=== PATIENT | female | born 1935 | race Caucasian/White ===

== ENCOUNTER 2017-01-10 15:06 | Inpatient (IN) | payer MEDICARE, OTHER ==
[~2017-01-10] VITALS: Ht 147.3 cm; Wt 70.0 kg
[~2017-01-10 15:06] MED LIST: ALBU8.5H3 INH; AMLO1TAB PO; APIX5TAB PO; ASPI-664 PO; BISO1TAB79 PO; DICL100G37 TOP; DIGO125T PO; DONE10TA7 PO; ETOMIDATE 20 MG INJ ONE; FER325 PO; FURO40TA4 PO; IBUP-1542 PO; LEVEM SC; METF500T4 PO; METO-448 PO; MONT10TA24 PO; Montelukast Sodium PO; NIT4 SL; POTA10TA37 PO; ROCURONIUM 50 MG INJ ONE; ROSU40TA35 PO
[2017-01-10] MEDS ORDERED: ALBUTEROL 0.5% (NEB) 2.5 MG/0.5 ML AMP INH STA (15:12)
[2017-01-10] MEDS ORDERED: NITROGLYCERIN (SL) 0.4 MG TAB SL PRN (15:30)
--- NOTE | 2017-01-10 15:34 | ERA ---
ER Documentation Chief Complaint Date/Time DATE: 01/10/17 TIME: 15:32 Chief Complaint HPI 79-year-old female with past medical history of CAD, chronic lymphocytic leukemia, anemia, hypertension, hypothyroidism, obesity, osteoporosis, pulmonary hypertension, diabetes, paroxysmal AFib, asthma, left lower extremity DVTBrought in by ambulance from home in severe respiratory distress. The patient was placed on BiPAP after she was noted to have an oxygen saturation in the 70s. The patient was recently admitted 3 weeks ago to an outside hospital for similar symptoms. Otherwise history is limited as the patient is in severe respiratory distress and not answering questions. ROS Unable to obtain secondary to severe respiratory distress Medications Home Meds Reported Medications Albuterol Sulfate* (Albuterol Sulfate* Neb) 0.083%-3 Ml Neb, 1 VIAL NEB BID Y for WHEEZING AND SOB, #30 VIAL 01/10/17 Ergocalciferol (Vitamin D2) (VITAMIN D2) 50,000 Unit Capsule, 02013 UNIT PO Q7D , CAP 01/10/17 Sennosides* (Senna Lax*) 8.6 Mg Tablet, 1 TAB PO Q12H Y for CONSTIPATION, TAB 01/10/17 Rosuvastatin Calcium* (Crestor*) 40 Mg Tablet, 40 MG PO DAILY, #30 TAB 01/10/17 Rivaroxaban* (Xarelto*) 20 Mg Tablet, 20 MG PO WITH DINNER, TAB 01/10/17 Prednisone* (Prednisone*) 5 Mg Tab, 5 MG PO DAILY, TAB 01/10/17 Potassium Chloride (Klor-Con) 10 Meq Tablet.sa, 10 MEQ PO DAILY, TAB.SA 01/10/17 Montelukast Sodium* (Montelukast Sodium*) 5 Mg Tab.chew, 5 MG PO QHS, #30 TAB 01/10/17 Midodrine* (Midodrine*) 5 Mg Tablet, 5 MG PO BID, TAB 01/10/17 Metoprolol Tartrate* (Lopressor*) 50 Mg Tab, 50 MG PO BID, #60 TAB 01/10/17 Lidocaine (Lidocaine) 1 Each Adh..patch, 1 EACH TP DAILY 01/10/17 Insulin Glargine* (Lantus*) 100 Unit/Ml Soln, 40 UNIT SC QAM, #1 VIAL 01/10/17 Insulin Aspart* (Novolog Insulin Pen*) 100 Unit/Ml Soln, 12 UNIT SC WITH MEALS, EA 01/10/17 Esomeprazole Mag Trihydrate (Nexium) 40 Mg Capsule.dr, 40 MG PO DAILY, #30 CAP 01/10/17 Docusate Sodium* (Docusate Sodium*) 100 Mg Capsule, 100 MG PO BID, #60 CAP 01/10/17 Diltiazem Hcl* (Diltiazem XT) 180 Mg Capsule.er, 180 MG PO DAILY, #30 CAP 01/10/17 Acetaminophen* (Acetaminophen*) 650 Mg Tablet, 650 MG PO Q4H Y for PAIN AND OR ELEVATED TEMP, #30 TAB 01/10/17 Furosemide* (Furosemide*) 40 Mg Tablet, 40 MG PO BID, TAB 01/10/17 Amiodarone Hcl* (Amiodarone Hcl*) 100 Mg Tablet, 100 MG PO BID, #30 TAB 01/10/17 Discontinued Reported Medications Montelukast Sodium* (Montelukast Sodium*) 10 Mg Tablet, 10 MG PO HS, TAB 10/25/14 Potassium Chloride* (K-Dur*) 10 Meq Tab.prt.sr, 10 MEQ PO DAILY, TAB 10/25/14 Furosemide* (Furosemide*) 40 Mg Tablet, 40 MG PO DAILY, TAB 7 Albuterol Sulfate* (Proair HFA*) 8.5 Gm Hfa.aer.ad, 2 PUFF INH Q4H Y for WHEEZING AND SOB, INH 10/25/14 Amlodipine-Olmesartan (Cece) 5-40 Mg Tablet, 1 TAB PO DAILY, TAB 10/25/14 Rosuvastatin Calcium* (Crestor*) 40 Mg Tablet, 40 MG PO HS, TAB 7 Metformin Hcl* (Metformin Hcl*) 500 Mg Tablet, 500 MG PO WITH MEALS, TAB 7 Diclofenac Sodium* (Voltaren* Gel) 1% -100 Gm Gel, 2 GM TOP QID, TUB 10/25/14 Bisoprolol-Hydrochlorothiazide (Bisoprolol-Hydrochlorothiazide) 5-6.25 Mg Tablet , 1 TAB PO DAILY, TAB 7 Ibuprofen* (Ibuprofen*) 600 Mg Tablet, 600 MG PO Q8, TAB 10/25/14 Donepezil* (Donepezil*) 10 Mg Tablet, 10 MG PO DAILY, TAB 7//15 Insulin Detemir* (Levemir*) 100 U/Ml Vial, 30 UNIT SC DAILY, VIAL 10/25/14 Discontinued Scripts Nitroglycerin* (Nitrostat*) 25 Tab Subl, 1 TAB SL Q5M Y for CHEST PAIN, #30 Prov:YOVANI CUETO 10/28/14 Metoprolol Tartrate* (Lopressor*) 25 Mg Tab, 25 MG PO BID for 30 Days, TAB Prov:YOVANI CUETO 10/28/14 Apixaban* (Eliquis*) 5 Mg Tablet, 10 MG PO BID for 60 Days, TAB 1. Take eliquis 10 mg by mouth twice a day for 7 days 2. Then take eliquis 5mg by mouth twice a day Prov:YOVANI CUETO 10/28/14 [Montelukast Sodium] 10 MG TAB No Conflict Check, 10 MG PO HS for 30 Days, TAB Prov:YOVANI CUETO 10/28/14 Ferrous Sulfate* (Ferrous Sulfate*) 325 Mg Tabec, 325 MG PO TID for 30 Days Prov:YOVANI CUETO 10/28/14 Digoxin* (Digitek*) 0.125 Mg Tab, 0.125 MG PO DAILY@13 for 30 Days Prov:YOVANI CUETO 10/28/14 Aspirin* (Aspirin* EC) 81 Mg Tabec, 81 MG PO DAILY for 30 Days Prov:YOVANI CUETO 10/28/14 Allergies Allergies: Coded Allergies: ceftriaxone (Unverified Allergy, Unknown, 01/10/17) PMhx/Soc History of Surgery: Yes (port-a-cath placement) Anesthesia Reaction: No Hx Neurological Disorder: No Hx Respiratory Disorders: No Hx Cardiac Disorders: Yes (HTN, paroxysmal AF, anemia, CHF) Hx Psychiatric Problems: No Hx Miscellaneous Medical Probl: No Hx Alcohol Use: No Hx Substance Use: No Hx Tobacco Use: No FmHx Family History: other (unable to obtain) Physical Exam Vitals Vital Signs Date Time Temp Pulse Resp B/P Pulse Ox O2 Delivery O2 Flow Rate FiO2 01/10/17 22:26 98.5 109 106/73 100 Mechanical Ventilator 01/10/17 21:04 123 20 100 100 01/10/17 20:25 98.7 140 102/89 100 Mechanical Ventilator 01/10/17 19:35 143 20 100 100 01/10/17 18:04 139 20 98 100 01/10/17 18:02 137 11 119/59 Mechanical Ventilator 01/10/17 17:40 140 88/65 98 Mechanical Ventilator 01/10/17 17:33 160 20 115/56 100 Mechanical Ventilator 01/10/17 17:15 163 17 103/81 100 Mechanical Ventilator 01/10/17 16:50 150 20 105/76 100 Mechanical Ventilator 01/10/17 16:50 154 20 100 100 01/10/17 15:45 98.2 137 18 141/93 96 01/10/17 15:45 Bag Valve Mask 01/10/17 15:38 98.4 138 29 141/93 93 BIPAP 01/10/17 15:20 130 89 100 Physical Exam Const: In severe respiratory distress, sitting upright, on BiPAP Head: Atraumatic Eyes: Normal Conjunctiva ENT: Normal External Ears, Nose and Mouth. Neck: Full range of motion..~ No meningismus.Positive JVD Resp: Significantly tachypneic, retractions noted,Poor air movement bilaterally with diffuse rails, no wheezing Cardio: Tachycardic with irregularrhythm, no murmurs Abd: Soft, non tender, non distended. Right upper quadrant with catheter, dressing clean dry and intact.Normal bowel sounds Skin: No petechiae or rashes Back: No midline or flank tenderness Ext: No cyanosis, Bilateral lower extremity pitting edema, lower extremities symmetric Neur: Awake and alert, Able to tell me her name but not answering other questions to the respiratory distress, PERRLA, moving all extremities, normal tone Result Diagram: 01/10/17 1525 01/10/17 1525 Results 24 hrs Laboratory Tests Test 01/10/17 15:12 01/10/17 15:25 01/10/17 18:10 01/10/17 20:05 Blood Gas Specimen Source Blood arterial Blood arterial Arterial Blood Date Drawn 01/10/2017 3:37:55 PM 01/10/2017 6:17:36 PM Arterial Blood pH (Temp corrected) 7.186 7.368 Arterial Blood pCO2 (Temp correct) 87.5mmhg 48.3mmhg Arterial Blood pO2 (Temp corrected) 72.1mmHG 79.3mmHG Arterial Blood HCO3 32.4mmol/L 27.2mmol/L Arterial Blood Base Excess 1.9mmol/L 1.4mmol/L Arterial Blood Oxygen Saturation 89.4mmHG 94.8mmHG Blayne Test ACCEPTAB ACCEPTAB Arterial Blood Gas Puncture Site Right Radial Right Radial Arterial Blood Carboxyhemoglobin 0.3% 0.3% Arterial Blood Methemoglobin 0.3% 0.3% Blood Gas A-a O2 Differential 553.4mmHg 585.4mmHg Oxyhemoglobin Percent 88.9% 94.2% Total Hemoglobin 12.0g/dl 11.3g/dl Blood Gas Temperature 37.0C 37.0C Blood Gas Respiration Rate 18.0 20.0 Blood Gas Actual Respiration Rate 51 20 Blood Gas Modality MASK - BIPAP VENT - AC FiO2 100.0% 100.0% Blood Gas Pressure Support 12 Blood Gas IPAP/EPAP Ratio 20/8 Blood Gas Critical Value Read Back DR. LEANDRO REEVES Blood Gas Notified Whom Olya Dobson Blood Gas Notified Time 01/10/2017 3:44:39 PM 01/10/2017 6:25:11 PM White Blood Count 30.810^3/ul Red Blood Count 3.5510^6/ul Hemoglobin 10.7g/dl Hematocrit 36.0% Mean Corpuscular Volume 101.4fl Mean Corpuscular Hemoglobin 30.1pg Mean Corpuscular Hemoglobin Concent 29.7g/dl Red Cell Distribution Width 15.3% Platelet Count 49204^3/UL Mean Platelet Volume 10.0fl Neutrophils % % Segmented Neutrophils % (Manual) 15% Lymphocytes % % Lymphocytes % (Manual) 76% Monocytes % % Monocytes % (Manual) 9% Eosinophils % % Basophils % % Nucleated Red Blood Cells % 0.0/100WBC Neutrophils # 10^3/ul Absolute Lymphocytes (Manual) 23.410^3/ul Lymphocytes # 10^3/ul Monocytes # 10^3/ul Absolute Monocytes (Manual) 2.710^3/ul Eosinophils # 10^3/ul Basophils # 10^3/ul Nucleated Red Blood Cells # 10^3/ul Platelet Estimate NORMAL Platelet Morphology Comment @See below Polychromasia 1+ Anisocytosis 1+ Ovalocytes 1+ Prothrombin Time 19.9Sec Prothrombin Time Ratio 1.6 INR International Normalized Ratio 1.68 Activated Partial Thromboplast Time 33.6Sec Sodium Level 141mmol/L Potassium Level 5.3mmol/L Chloride Level 97mmol/L Carbon Dioxide Level 31mmol/L Anion Gap 18 Blood Urea Nitrogen 16mg/dl Creatinine 1.28mg/dl Glucose Level 341mg/dl Lactic Acid Level 4.9mmol/L 2.2mmol/L Calcium Level 8.9mg/dl Total Bilirubin 0.4mg/dl Direct Bilirubin 0.00mg/dl Indirect Bilirubin 0.4mg/dl Aspartate Amino Transf (AST/SGOT) 34IU/L Alanine Aminotransferase (ALT/SGPT) 29IU/L Alkaline Phosphatase 118IU/L Troponin I 0.014ng/ml B-Type Natriuretic Peptide 7020PG/ML Total Protein 7.0g/dl Albumin 4.3g/dl Globulin 2.70g/dl Albumin/Globulin Ratio 1.59 Blood Gas Tidal Volume 400.0mL Blood Gas Low PEEP Setting 8.0cmH2O Test 01/10/17 22:10 Lactic Acid Level 2.0mmol/L Current Medications Medications (Trade) Dose Ordered Sig/Carlos Route PRN Reason Start Time Stop Time Status Last Admin Dose Admin Albuterol (Proventil 0.5% (Neb)) 10 mg ONCE STAT INH 01/10/17 15:12 01/10/17 15:14 DC 01/10/17 15:23 Nitroglycerin 1 tab 1 tab Q5M UP TO 3 DOSES PRN SL CHEST PAIN 01/10/17 15:30 01/10/17 15:30 Vancomycin HCl 250 ml @ 125 mls/hr ONCE STAT IVPB 01/10/17 16:06 01/10/17 18:05 DC 01/10/17 16:52 Cefepime HCl 50 ml @ 100 mls/hr ONCE STAT IVPB 01/10/17 16:06 01/10/17 16:35 DC 01/10/17 16:50 Propofol (Diprivan) 100 ml @ 0 mls/hr TITRATE ONCE IV 01/10/17 16:30 01/10/17 16:31 DC 01/10/17 17:18 Furosemide (Lasix) 80 mg ONCE ONCE IV 01/10/17 16:30 01/10/17 16:31 DC 01/10/17 16:50 Diltiazem HCl (Cardizem Iv) 10 mg ONCE ONCE IV 01/10/17 16:30 01/10/17 16:31 DC 01/10/17 16:50 Lidocaine (Xylocaine 1% (Mpf)) 5 ml ONCE ONCE SC 01/10/17 16:30 01/10/17 16:31 DC Diltiazem HCl (Cardizem Iv) 10 mg ONCE ONCE IV 01/10/17 17:30 01/10/17 17:31 DC 01/10/17 17:13 Diltiazem HCl 20 mg 20 mg ONCE ONCE IV 01/10/17 17:30 01/10/17 17:31 DC 01/10/17 17:33 Sodium Chloride (NS) 500 ml @ 500 mls/hr Q1H STAT IV 01/10/17 18:03 01/10/17 19:02 DC Metoprolol Tartrate 5 mg 5 mg ONCE ONCE IV 01/10/17 18:30 01/10/17 18:31 DC Amiodarone HCl 100 ml @ 600 mls/hr ONCE ONCE IV 01/10/17 19:00 01/10/17 19:09 DC Amiodarone HCl/ Dextrose (Cordarone Iv/ D5W) 500 ml @ 0 mls/hr Q0M IV 01/10/17 19:00 01/11/17 18:59 Midazolam HCl 2 mg 2 mg ONCE ONCE IV 01/10/17 19:00 01/10/17 19:01 DC 01/10/17 20:07 Midazolam HCl 0 ml @ ud STK-MED ONCE .ROUTE 01/10/17 18:43 01/10/17 18:44 DC Phenylephrine HCl (Baudilio-Syneph) 250 ml @ ud STK-MED ONCE .ROUTE 01/10/17 19:31 01/10/17 19:32 DC Digoxin (Digoxin) 500 mcg STK-MED ONCE IV 01/10/17 19:31 01/10/17 19:32 DC Digoxin 250 mcg 250 mcg ONCE ONCE IV 01/10/17 20:00 01/10/17 20:01 DC 01/10/17 19:49 Phenylephrine HCl 250 ml @ 75 mls/hr TITRATE IV 01/10/17 20:00 01/10/17 22:00 DC 01/10/17 20:17 Phenylephrine HCl/ Dextrose (Baudilio-Syneph/D5W) 250 ml @ 0 mls/hr TITRATE IV 01/10/17 20:30 Digoxin (Digoxin) 250 mcg Q4H IV 01/11/17 00:00 01/11/17 08:01 Enoxaparin Sodium (Lovenox) 70 mg ONCE SC 01/10/17 23:00 01/10/17 23:03 Procedures/MDM EKG: Rate/Rhythm: Atrial fibrillation with rapid ventricular response at 126 bpm QRS, ST, T-waves: Rightward axis, incomplete left bundle branch block Impression: Atrial fibrillation with RVR, no ST elevation AR EKG: Rate/Rhythm: A. fib with RVR at 149 bpm QRS, ST, T-waves: Incomplete left bundle branch block Impression: Atrial fibrillation with RVR Chest x-ray #1: IMPRESSION: Mild cardiomegaly. Moderate pulmonary vascular congestion. Extensive bilateral infiltrates. Bilateral pleural effusions. Right-sided Pleurx catheter in place. Slightly more focal right lower lobe consolidation versus mass. Calcified aorta consistent with atherosclerotic disease. Follow-up is recommended. .Mahamed Rodriguez MD, MD Date Time Electronically viewed and signed by .Mahamed Rodriguez MD, MD on 01/10/2017 15: 41 Endotracheal Intubation by me: Pre assessment performed. See preceding note for details. Pre-oxygenation performed with 100% oxygen RSI: Performed w/o complication or hypoxic events. Medications as ordered. Blade: Mac 4 ET Tube: 7.5 cm Depth: 21 cm at the lip Intubation confirmed by colorimetric CO2, equal breath sounds, quiet over the stomach. Chest X-ray 1V Interpreted by me: 1.2 cm above the jaya ET tube. Normal soft tissue, No pneumothorax. Chest X-ray 1V Interpreted by me after repositioning tube: 3 cm above the jaya is the ET tube. No pneumothorax. Central Line Placement by me: Patient consented, sterilely draped, full prep, gown, glove, mask, time out performed. Anesthesia: 1% lidocaine locally Location: Left IJ Device: Multiple lumen Technique: Seldinger technique. Secured with suture. Results: Venous return from all ports with easy saline flush. No complications. Guide wire retrieved and disposed of. ED Ultrasound: Central line placed by me using concurrent ultrasound guidance. Real time image archived in the medical record confirms vascular anatomy. Chest X-ray 1V Interpreted by me: Central line in SVC, Normal soft tissue, No evidence of pneumothorax. MDM Patient's presentation is consistent with acute heart failure with some hypercarbia. Patient was trialed on BiPAP for half an hour. Her oxygenation was improving, however she remained tachypneic in the 50s and appeared to be tiring out. I discussed my findings with the family and they agreed to intubation. The patient was intubated for acute respiratory failure with improvement of her respiratory status. She immediately had blood-tinged frothy sputum that was suctioned. Her heart rate was noted to be tachycardic and became even more tachycardic after albuterol therapy was started with the BiPAP. Patient is in chronic A. fib but is currently in RVR. Multiple doses of diltiazem was given with no significant improvement in the tachycardia, but her blood pressure did progressively drop. Due to poor access, the patient had a central line placed. I suspect her lactic acidosis is more likely secondary to hypoperfusion from her acute on chronic heart failure and uncontrolled A. fib and less likely secondary to sepsis. However her x-ray does show evidence of possible pneumonia. Broad-spectrum antibiotics were started. I spoke with the harness tier, Dr. Bardales, who recommended digoxin and Baudilio-Synephrine. I had ordered amiodarone, however he stated the patient did not need this. I was unable to give any further beta-blockers for rate control given her hypotension. Digoxin was given with progressive improvement in her vitals. Lasix 80 mg IV was also given for diuresis. I did consider acute coronary syndrome and pulmonary embolism, which remain on the differential. However I will defer any further workup for these to the inpatient team as the patient still requires stabilization. Patient will require admission for further management of her multiple acute on chronic issues. the patient is at risk of rapid decompensation. The patient will be admitted for Respiratory interventions,antibiotic therapy, and infectious source control. Severe Sepsis Assessment: Infectious Source: Unknown End organ damage indicated by: Lactate > 2.0 mmol/L Hypotension( SBP < 90 or >40 mmHG drop or MAP < 65) Acute Resp Failure (sat < 92% w/o oxygen) Severe Sepsis Managment: Blood Cultures X 2 before broad spectrum antibiotics initiated within 3 hours of recognition. 30 ml/kg NS bolus Not completed as the patient is significantly fluid overloaded on exam and acute CHF, IVC full and non-collapsible Initial Lactate: 4.9 Repeat Lactate 2.2 Critical Care: Time: 60 minutes Treatments/Evaluations: Emergent fluid management, while maintaining close respiratory support. Immediate broad spectrum antibiotic therapy. Simultaneous assessment for possible sources in order to direct therapy. Consideration for invasive and chemical support to prevent respiratory or cardiac collapse. Septic Shock Assessment Hypotension (SBP < 90 or 40 mmHg drop, MAP < 65): Yes Lactic acid > 4.0 No Perfusion Reassessment for Septic Shock: Temp 98.4F, Pulse 150, RR 20, BP 105/76 Heart Exam: Tachycardic, irregular Lung Exam: Diffuse crackles Capillary Refill: Delayed Peripheral Pulses: Radially present Skin: Warm, dry Hypotensive Treatment (not required for isolated lactic acid elevation): Comfort Care: No Central LIne: yes Vasopressor started: neosynephrine per Dr. Bardales I considered further perfusion assessment with bedside ultrasound volume assessment And proceeded with vasopressors Accepting Care Team: Current data and ongoing care discussed. Time: Time of admission Primary Provider: Nawaf Consulting: Catia Outstanding Data: cultures Departure Diagnosis: Primary Impression: Acute respiratory failure with hypoxia and hypercapnia Additional Impressions: Septic shock Cardiogenic shock Atrial fibrillation with RVR Leukocytosis Qualified Code: D72.829 - Leukocytosis, unspecified type Healthcare-associated pneumonia Acute CHF Qualified Code: I50.41 - Acute combined systolic and diastolic congestive heart failure Condition: Critical EKAIXA SNIDER MD Jan 10, 2017 15:34
[2017-01-10 15:41] LABS: ABNORMAL IP MESSAGE 1; HEMOGLOBIN 10.7 g/dl (12.0-16.0); MEAN CORPUSCULAR HEMOGLOBIN 30.1 pg (29.0-33.0); MEAN CORPUSCULAR HGB CONC 29.7 g/dl (32.0-37.0); MEAN CORPUSCULAR VOLUME 101.4 fl (82.0-101.0); PLATELET COUNT 293 10^3/UL (140-415); RED BLOOD COUNT 3.55 10^6/ul (4.20-5.40); RED CELL DISTRIBUTION WIDTH 15.3 % (11.5-14.5); WHITE BLOOD COUNT 30.8 10^3/ul (4.8-10.8)
--- NOTE | 2017-01-10 15:41 | RADRPT ---
PROCEDURE: XR Chest. CLINICAL INDICATION: Chest pain TECHNIQUE: Single frontal view of the chest was obtained COMPARISON: 10/25/2014 FINDINGS: The heart is enlarged. The thoracic aorta is calcified. There is moderate pulmonary vascular congestion. There are bilateral upper lobe and lower lobe ileus . There are bilateral pleural effusions. There is a possible right lower lobe/consolidation. There i s a right-sided Pleurx catheter in place. There is no pleural effusion or pneumothorax. RPTAT: AA IMPRESSION: Mild cardiomegaly. Moderate pulmonary vascular congestion. Extensive bilateral infiltrates. Bilateral pleural effusions. Right-sided Pleurx catheter in place. Slightly more focal right lower lobe consolidation versus mass. Calcified aorta consistent with atherosclerotic disease. Follow-up is recommended. .Mahamed Rodriguez MD, Date Time Electronically viewed and signed by .Mahamed Rodriguez MD, on 01/10/2017 15:41 .S/
[2017-01-10 15:44] LABS: POSITIVE DIFF @See below
[2017-01-10 15:44] LABS: AADO2 Arterial 553.4 mmHg (7.0-24.0); Allen Test ACCEPTAB; Arterial Base Excess 1.9 mmol/L (-3.0-3); Arterial COHb 0.3 % (0.0-3.0); Arterial Fraction of Oxyhgb 88.9 % (93.0-99.0); Arterial HCO3 32.4 mmol/L (22.0-26.0); Arterial MetHb 0.3 % (0.0-1.5); Blood Gas IEPAP 20/8; Blood Gas PS 12; MODE MASK - BIPAP
[2017-01-10 15:57] LABS: INR 1.68; PROTIME 19.9 Sec (12.2-14.2); PT RATIO 1.6
[2017-01-10 15:58] LABS: PARTIAL THROMBOPLASTIN TIME 33.6 Sec (25.0-35.0)
[2017-01-10 15:59] LABS: ALBUMIN 4.3 g/dl (3.3-4.9); ALBUMIN/GLOBULIN RATIO 1.59; BILIRUBIN,INDIRECT 0.4 mg/dl (0-1.1); BILIRUBIN,TOTAL 0.4 mg/dl (0.2-1.3); CALCIUM 8.9 mg/dl (8.4-10.2); CREATININE 1.28 mg/dl (0.44-1.00); POTASSIUM 5.3 mmol/L (3.5-5.1)
[2017-01-10] MEDS ORDERED: VANCOMYCIN 1 GM (PMX) 250 ML IVPB STA (16:06)
[2017-01-10] MEDS ORDERED: CEFEPIME 2GM/50 ML (PMX) 50 ML IVPB STA (16:06)
[2017-01-10 16:13] LABS: TROPONIN-I 0.014 ng/ml (0.00-0.12)
[2017-01-10] MEDS ORDERED: AMIO100T4 PO (16:22)
[2017-01-10] MEDS ORDERED: ACET-2047 PO (16:23)
[2017-01-10] MEDS ORDERED: FURO40TA4 PO (16:23)
[2017-01-10] MEDS ORDERED: DOCU-159 PO (16:24)
[2017-01-10] MEDS ORDERED: DILT180C94 PO (16:24)
[2017-01-10] MEDS ORDERED: ESOM40CA PO (16:25)
[2017-01-10] MEDS ORDERED: NOVO3I SC (16:25)
[2017-01-10] MEDS ORDERED: LANT3I SC (16:26)
[2017-01-10] MEDS ORDERED: LIDOCAINE 1% (MPF) 5 ML VIAL SC ONE (16:30)
[2017-01-10] MEDS ORDERED: DILTIAZEM 25 MG INJ IV ONE ×3 (16:30→17:30)
[2017-01-10] MEDS ORDERED: PROPOFOL 100 ML IV ONE (16:30)
[2017-01-10] MEDS ORDERED: FUROSEMIDE 40 MG INJ IV ONE (16:30)
[2017-01-10] MEDS ORDERED: LIDO700A45 TP (16:31)
[2017-01-10] MEDS ORDERED: METO-429 PO (16:32)
[2017-01-10] MEDS ORDERED: MIDO5TAB19 PO (16:32)
[2017-01-10] MEDS ORDERED: MONT5TAB16 PO (16:33)
[2017-01-10] MEDS ORDERED: POTA10TA97 PO (16:34)
[2017-01-10] MEDS ORDERED: PRED5TAB PO (16:34)
[2017-01-10] MEDS ORDERED: RIVA20TA PO (16:35)
[2017-01-10] MEDS ORDERED: ROSU40TA35 PO (16:35)
[2017-01-10] MEDS ORDERED: ERGO500037 PO (16:36)
[2017-01-10] MEDS ORDERED: SENN-53 PO (16:36)
[2017-01-10] MEDS ORDERED: ALBU2.5V3 NEB (16:38)
[2017-01-10 16:41] LABS: ANISOCYTOSIS 1+ (0-0); MONOCYTES % (M) 9 % (0-11); OVALOCYTES 1+ (0-0); PLATELET ESTIMATE NORMAL; POLYCHROMASIA 1+ (0-0)
--- NOTE | 2017-01-10 17:08 | RADRPT ---
PROCEDURE: XR Chest. CLINICAL INDICATION: Intubation. TECHNIQUE: Single frontal view of the chest was obtained COMPARISON: 01/10/2017 at 03:27 PM FINDINGS: There is interval intubation with endotracheal tube in the proximal right mainstem bronchus. Recomme nd retraction by approximately 3-4 cm. There is interval improved aeration in the bilateral lower lo bes. Otherwise, there is no significant interval change. The heart is enlarged. The thoracic aorta is calcified. There is moderate pulmonary vascular congestion. There is a persistent right lower lob e and left upper lobe consolidation. There is a right-sided Pleurx catheter in place. There is no pl eural effusion or pneumothorax. IMPRESSION: Interval placement of endotracheal tube with the tip in the right mainstem bronchus. Recommend retra ction by approximately 3-4 cm. There is interval improved aeration of the bilateral lower lobes. O therwise, no significant interval change. Findings discussed with ER nurse, Courtney Tirado, for Dr. Mcgill on 01/10/2017 at 05:04 p.m. RPTAT: JJ .Heladio Lay MD, MD Date Time Electronically viewed and signed by .Heladio Lay MD, on 01/10/2017 17:07 .A/
[2017-01-10] MEDS ORDERED: SOD CHLORIDE 0.9% 500 ML IV STA (18:03)
[2017-01-10 18:25] LABS: AADO2 Arterial 585.4 mmHg (7.0-24.0); Allen Test ACCEPTAB; Arterial Base Excess 1.4 mmol/L (-3.0-3); Arterial COHb 0.3 % (0.0-3.0); Arterial Fraction of Oxyhgb 94.2 % (93.0-99.0); Arterial HCO3 27.2 mmol/L (22.0-26.0); Arterial MetHb 0.3 % (0.0-1.5); Arterial Total Hemglobin 11.3 g/dl (12.0-18.0); MODE VENT - AC
[2017-01-10] MEDS ORDERED: METOPROLOL 5 MG INJ IV ONE (18:30)
[2017-01-10] MEDS ORDERED: MIDAZOLAM 5 MG/ML ONE (18:43)
[2017-01-10] MEDS ORDERED: AMIODARONE 900 MG in DEXTROSE 5% 482 ML IV SCH (19:00)
[2017-01-10] MEDS ORDERED: AMIODARONE 150MG/D5W BOLUS 100 ML IV ONE (19:00)
[2017-01-10] MEDS ORDERED: MIDAZOLAM 1 MG/ML 2 ML INJ IV ONE (19:00)
[2017-01-10] MEDS ORDERED: DIGOXIN 500 MCG INJ IV ONE ×2 (19:31→20:00)
[2017-01-10] MEDS ORDERED: PHENYLephrine 20MG IN 250 ML 250 ML ONE (19:31)
--- NOTE | 2017-01-10 20:16 | CONS ---
Date/Time of Note Date/Time of Note DATE: 01/10/17 TIME: 20:06 Assessment/Plan Assessment/Plan Chief Complaint/Hosp Course 1. shock: 2. CHF: acute on chronic probably due to systolic and diastolic heart failure 3. acute hypoxemic/ hypercapnic resp failure: s/ p intubation now 4. Afib with RVR 5. HX CAD 6/ HX PCI RCA 2009 7. HX HTN: now hypotensive 8. hyper K 9. hx CLL 10. ANEMIA 11. Lactic acidosis 12. dyslipidemia 13./ hx DVT ON XARELTO REC: ICU care vent supoport dig IV Q 4 HOUR to control HR NEOSYNERPHRINE DRIP ECHO in AM' PULM CONSULT with Dr Laws, UNABLE to resume betablocker/ cardizem due to hypotension now. thank you. CHINO MERCEDES MD [facility] Problems: Consultation Date/Type/Reason Admit Date/Time Date of Consultation: Jan 10, 2017 Type of Consultation: CARDIOLOGY Reason for Consultation AFIB./ CHF Hx of Present Illness CC: tachycardia. sob HPI: THANK YOU FOR THIS REFERRAL this is a pleasant 89 year old female with multiple complicated medical problems who was just discharged from [facility] and came int with increasing HR and sob over the past few days. she was noted to be tachycardic around 140 and sob and resp distress in ER and had to be intubated. d/w son and daughter in law. her old charts were reviewed. d/w multiple physicians. pt had to be intubated in ER and is on vent and unable to provide any history to me she is has become hypotensive as well and has been in afib RVR. there is no reports of any cp or pressure or palpitations. MEDS REVIEWED. ALLERGY NKDA SOCIAL NO T/E/D Family hx : son with AR/ PCI at young age. PMH: CHF AFIB Dyslipidemia recurrent pleural effusion s/p pleurodex right chest CAD: S/P PCI RCA 2009 DVT LE ANEMIA CLL: Is being followed up by hem./onc Dr Stroud ROS: as above only. Past Surgical History Past Surgical Hx: noncontributory Social History Smoking Status: Never smoker Exam/Review of Systems Vital Signs Vitals Vital Signs Date Time Temp Pulse Resp B/P Pulse Ox O2 Delivery O2 Flow Rate FiO2 01/10/17 18:04 139 20 98 100 01/10/17 18:02 119/59 Mechanical Ventilator 01/10/17 15:45 98.2 Exam gen: intubated on vent HEENT: Pupils are equal NECK: + JVD CV: irregularly irregular. systolic murmur Chest: s/p pelurodex right side GI: soft NT ND. no rebound. no guarding ext: + diffuse LE edema neuro: opens her eyes to verbal stimuli Derm: multiple echymosis psych; calm now ECG reviewed: afib RVR. ant infarct. CXR reviewed CHF. S/P pleurodex ABG reviewed. . Results Result Diagram: 01/10/17 1525 01/10/17 1525 Results 24 hrs Laboratory Tests Test 01/10/17 15:12 01/10/17 15:25 01/10/17 18:10 Blood Gas Specimen Source Blood arterial Blood arterial Arterial Blood Date Drawn 01/10/2017 3:37:55 PM 01/10/2017 6:17:36 PM Arterial Blood pH (Temp corrected) 7.186 *L 7.368 Arterial Blood pCO2 (Temp correct) 87.5 *H 48.3 H Arterial Blood pO2 (Temp corrected) 72.1 L 79.3 L Arterial Blood HCO3 32.4 H 27.2 H Arterial Blood Base Excess 1.9 1.4 Arterial Blood Oxygen Saturation 89.4 L 94.8 L Blayne Test ACCEPTAB ACCEPTAB Arterial Blood Gas Puncture Site Right Radial Right Radial Arterial Blood Carboxyhemoglobin 0.3 0.3 Arterial Blood Methemoglobin 0.3 0.3 Blood Gas A-a O2 Differential 553.4 H 585.4 H Oxyhemoglobin Percent 88.9 L 94.2 Total Hemoglobin 12.0 11.3 L Blood Gas Temperature 37.0 37.0 Blood Gas Respiration Rate 18.0 20.0 Blood Gas Actual Respiration Rate 51 20 Blood Gas Modality MASK - BIPAP VENT - AC FiO2 100.0 100.0 Blood Gas Pressure Support 12 Blood Gas IPAP/EPAP Ratio 20/8 Blood Gas Critical Value Read Back DR. LEANDRO REEVES Blood Gas Notified Whom Olya Dobson Blood Gas Notified Time 01/10/2017 3:44:39 PM 01/10/2017 6:25:11 PM White Blood Count 30.8 #H Red Blood Count 3.55 L Hemoglobin 10.7 L Hematocrit 36.0 L Mean Corpuscular Volume 101.4 H Mean Corpuscular Hemoglobin 30.1 Mean Corpuscular Hemoglobin Concent 29.7 L Red Cell Distribution Width 15.3 #H Platelet Count 293 Mean Platelet Volume 10.0 # Neutrophils % Segmented Neutrophils % (Manual) 15 L Lymphocytes % Lymphocytes % (Manual) 76 H Monocytes % Monocytes % (Manual) 9 Eosinophils % Basophils % Nucleated Red Blood Cells % 0.0 Neutrophils # Absolute Lymphocytes (Manual) 23.4 H Lymphocytes # Monocytes # Absolute Monocytes (Manual) 2.7 H Eosinophils # Basophils # Nucleated Red Blood Cells # Platelet Estimate NORMAL Platelet Morphology Comment @See below Polychromasia 1+ Anisocytosis 1+ Ovalocytes 1+ Prothrombin Time 19.9 H Prothrombin Time Ratio 1.6 INR International Normalized Ratio 1.68 Activated Partial Thromboplast Time 33.6 Sodium Level 141 Potassium Level 5.3 H Chloride Level 97 Carbon Dioxide Level 31 Anion Gap 18 H Blood Urea Nitrogen 16 Creatinine 1.28 H Glucose Level 341 H Lactic Acid Level 4.9 *H Calcium Level 8.9 Total Bilirubin 0.4 Direct Bilirubin 0.00 Indirect Bilirubin 0.4 Aspartate Amino Transf (AST/SGOT) 34 Alanine Aminotransferase (ALT/SGPT) 29 Alkaline Phosphatase 118 Troponin I 0.014 B-Type Natriuretic Peptide 7020 H Total Protein 7.0 Albumin 4.3 Globulin 2.70 Albumin/Globulin Ratio 1.59 Blood Gas Tidal Volume 400.0 Blood Gas Low PEEP Setting 8.0 Medications Medications Current Medications Amiodarone HCl/ Dextrose (Cordarone Iv/ D5W) 500 ml @ 0 mls/hr Q0M IV ; Start at 19:00; Stop 01/11/17 at 18:59 Digoxin 250 mcg 250 mcg ONCE ONCE IV Last administered on 01/10/17t 19:49; Admin Dose 250 MCG; Start 01/10/17 at 20:00; Stop 01/10/17 at 20:01 Phenylephrine HCl (Baudilio-Syneph) 250 ml @ 75 mls/hr TITRATE IV ; Start 01/10/17 at 20:00 CHINO MERCEDES MD Jan 10, 2017 20:16
[2017-01-10] MEDS: PHENYLephrine 20MG IN 250 ML 250 ML IV SCH (20:17)
--- NOTE | 2017-01-10 20:41 | RADRPT ---
PROCEDURE: XR Chest. CLINICAL INDICATION: Central venous catheter placement. TECHNIQUE: Single AP portable chest. COMPARISON: 10/25/2014 Chest x-ray FINDINGS: The cardiac silhouette is enlarged. Consolidation in the right upper lobe with vascular congestion a nd patchy bilateral airspace opacity bilaterally. Bilateral pleural effusions. Left central venous c atheter tip overlying the mid superior vena cava. The right MediPort catheter has been removed. The endotracheal tube tip is 3 cm above the jaya. Atherosclerotic calcification of the aorta. No pne umothorax. The osseous structures and soft tissues are unremarkable. IMPRESSION: 1. Bilateral air space opacities and pleural effusions suggestive of CHF and pulmonary edema versus multifocal pneumonia. 2. Support devices in satisfactory position as detailed above. . RPTAT: HH Daisy Montano Physician Date Time Electronically viewed and signed by Physician Miri on 01/10/2017 20:40 SIDNEY/
--- NOTE | 2017-01-10 22:49 | RADRPT ---
PROCEDURE: US DVT. CLINICAL INDICATION: Bilateral lower extremity pain. TECHNIQUE: Multiple longitudinal and transverse images of the bilateral lower extremity veins were obtained with caceres scale and color Doppler imaging. 2D grayscale measurements with compression, co agata Doppler flow, and augmentation was performed. COMPARISON: 10/26/2014 FINDINGS: The right common femoral, superficial femoral and popliteal veins are normally compressible througho ut. Color flow demonstrates normal filling of the vessel. Normal waveforms are visualized and ther e is normal response to augmentation. The left common femoral and proximal superficial femoral vein are patent. There is noncompressible f illing defect compatible partial thrombosis of the mid and distal left superficial femoral vein and popliteal vein. IMPRESSION: 1. Partial deep venous thrombosis of the left lower extremity from the mid superficial femoral to p opliteal veins. 2. No evidence of a deep vein thrombosis involving the right extremity. Findings reported to SUZI GAMEZ on 01/10/2017 10:33:06 PM. RPTAT: HMVK .Shravan Arroyo MD, MD Date Time Electronically viewed and signed by .Shravan Arroyo MD, MD on 01/10/2017 22:49 .K/
[2017-01-10] MEDS ORDERED: ENOXAPARIN 80 MG/0.8 ML SYG SC SCH (23:00)
[2017-01-10 23:49] VITALS: TEMP 98.7
[2017-01-11] VITALS (103 sets, daily range): BP systolic 74–134; BP diastolic 30–92; PULSE 76–140; RESP 14–26; Ht 147.3 cm; Wt 70.0 kg
[2017-01-11] MEDS: DIGOXIN 500 MCG INJ IV SCH ×3 (01:00→08:00)
[2017-01-11] MEDS: PHENYLephrine 20MG IN 250 ML 250 ML IV SCH (01:05)
[2017-01-11] MEDS: PROPOFOL 100 ML IV SCH ×3 (02:08→18:59)
[2017-01-11] MEDS: PHENYLephrine 80 MG in DEXTROSE 5% 242 ML IV SCH ×2 (02:35→15:26)
[2017-01-11 05:30] LABS: ABNORMAL IP MESSAGE 1; HEMATOCRIT 31.8 % (37.0-47.0); HEMOGLOBIN 9.6 g/dl (12.0-16.0); MEAN CORPUSCULAR HEMOGLOBIN 29.3 pg (29.0-33.0); MEAN CORPUSCULAR HGB CONC 30.2 g/dl (32.0-37.0); MEAN PLATELET VOLUME 10.1 fl (7.4-10.4); NUCLEATED RED BLOOD CELLS% 0.2 /100WBC (0.0-0.0); PLATELET COUNT 262 10^3/UL (140-415); RED BLOOD COUNT 3.28 10^6/ul (4.20-5.40); RED CELL DISTRIBUTION WIDTH 15.6 % (11.5-14.5); WHITE BLOOD COUNT 18.8 10^3/ul (4.8-10.8)
[2017-01-11 05:31] LABS: POSITIVE DIFF @See below
[2017-01-11 05:45] LABS: INR 1.51; PROTIME 18.3 Sec (12.2-14.2); PT RATIO 1.4
[2017-01-11 06:55] LABS: CK-MB 1.07 ng/ml (0.0-2.4); TROPONIN-I 0.07 ng/ml (0.00-0.12)
[2017-01-11 07:18] LABS: ALBUMIN 3.3 g/dl (3.3-4.9); ALBUMIN/GLOBULIN RATIO 1.32; BILIRUBIN,INDIRECT 0.4 mg/dl (0-1.1); BILIRUBIN,TOTAL 0.4 mg/dl (0.2-1.3); CALCIUM 8.9 mg/dl (8.4-10.2); CREATININE 1.31 mg/dl (0.44-1.00); MAGNESIUM 2.2 mg/dl (1.7-2.5); POTASSIUM 4.8 mmol/L (3.5-5.1); TOTAL PROTEIN 5.8 g/dl (6.1-8.1)
[2017-01-11] MEDS ORDERED: VANCOMYCIN IV PER PHARMACY XX SCH (07:30)
--- NOTE | 2017-01-11 09:07 | CONS ---
DATE OF ADMISSION: 01/10/2017 DATE OF CONSULTATION: 01/10/2017 REASON FOR CONSULTATION: Antibiotic management. HISTORY OF PRESENT ILLNESS: Virginie Brennan is a 81-year-old female, brought into the emergency room with severe respiratory distress and being seen for antibiotic management. PAST MEDICAL HISTORY: 1. Coronary artery disease. 2. Chronic lymphocytic leukemia. 3. Anemia. 4. Hypertension. 5. Hypothyroidism. 6. Obesity. 7. Osteoporosis. 8. Pulmonary hypertension. 9. Adult-onset diabetes mellitus. 10. Paroxysmal atrial fibrillation. 11. Asthma. 12. Left lower extremity DVT. The patient, as noted, has chronic lymphocytic leukemia. She is on multiple medications, and she also has a Port-A-Cath. PHYSICAL EXAMINATION: VITAL SIGNS: Stable. SKIN: Without generalized rash. HEENT: Within normal limits. NECK: Supple. Lymph nodes nonpalpable. CHEST: Decreased breath sounds at the bases. HEART: Without murmur or gallop. ABDOMEN: Soft, nontender, without organosplenomegaly or masses. EXTREMITIES: Without cyanosis, clubbing, or edema. RECTAL/GENITAL: Deferred. NEUROLOGICAL: No focal neurological abnormalities. DIAGNOSTICS: Her EKG shows atrial fibrillation with rapid ventricular response. Her white count was 30.8, H and H of 10.7 and 36, platelet count 293,000 with 0 polys, 15 segmented neutrophils. So, she has a white count of 30.8 with 15 polys. She is not absolutely neutropenic. Chest x-ray shows extensive bilateral infiltrates, right-sided PleurX catheter in place, bilateral pleural effusions, possible right lower lobe consolidation, right-sided PleurX catheter in place, slightly more focal right lower lobe consolidation versus mass. DISPOSITION: The patient was begun on vancomycin. She also received cefepime. She has 2 sets of blood cultures that were drawn. We will continue her on vancomycin and cefepime. We will see how she does with regards to her respiratory distress. She may need intubation. I will dictate my findings to the hospitalists. Dictated By: Ishmael Edwards MD JD/linette/gustavo /Document#: [id number]
--- NOTE | 2017-01-11 09:07 | RADRPT ---
PROCEDURE: XR Chest. CLINICAL INDICATION: Respiratory failure. Endotracheal tube repositioning. Right lung infiltrate. TECHNIQUE: Portable single view of the chest COMPARISON: 01/10/2017 FINDINGS: 2 portable AP semi-erect views were obtained. Endotracheal tube remains in good position. Left inter nal jugular central venous line remains in good position. Cardiomegaly and aortic calcification is a gain seen. There is improved aeration of the right upper lobe compared with prior. Fluid is seen in the minor fissure and moderate right pleural effusion is seen. Right chest tube remains in place in the medial right hemithorax. Moderate left pleural effusion is again seen. No pneumothorax is seen. Nasogastric tube courses into the stomach and off the radiographic field. Pulmonary vascular congest ion with mild interstitial edema. Degenerative change of the spine. IMPRESSION: Tubes and lines in good position. Bilateral pleural effusions and pulmonary vascular congestion with probable mild interstitial edema. Aortic atherosclerosis. RPTAT: HLBE Physician Teddy Date Time Electronically viewed and signed by Ericka Stevens Physician on 01/11/2017 04:03 CHUY/
[2017-01-11 09:09] LABS: ANISOCYTOSIS 2+ (0-0); HYPOCHROMASIA 1+ (0-0); MICROCYTOSIS 2+ (0-0); MONOCYTES % (M) 14 % (0-11); PLATELET ESTIMATE NORMAL; POIKILOCYTOSIS 1+ (0-0); POLYCHROMASIA 3+ (0-0)
--- NOTE | 2017-01-11 09:09 | HP ---
DATE OF ADMISSION: 01/10/2017 CHIEF COMPLAINT: Septic shock, respiratory failure. HISTORY OF PRESENT ILLNESS: This is a 79-year-old female with a past medical history of coronary artery disease, history of chronic lymphocytic leukemia, history of anemia, hypertension, hypothyroidism, obesity, osteoporosis, pulmonary hypertension, diabetes, paroxysmal AFib, asthma, left lower extremity DVT, who was brought into [facility] due to severe respiratory distress. The patient was recently discharged home from [facility], but then presented with symptoms of worsening respiratory distress. She came into [facility] Emergency Room. Upon arrival, the patient was placed on BiPAP. However, she continued to desaturate and was subsequently intubated. The patient was then noted to be hypotensive and placed on presser support, given antibiotic therapy and admitted to the intensive care unit for further evaluation. Overnight, the patient was noted to be tachycardic, was seen by fourdrinier operator, Dr. Bardales, was given amiodarone bolus, as well as digoxin. No other acute events noted. No hemoptysis, hematemesis, hematochezia. PAST MEDICAL HISTORY: As stated above. History of coronary artery disease, chronic lymphocytic leukemia, anemia, hypertension, hypothyroidism, obesity, osteoporosis, pulmonary hypertension, diabetes, DVT, paroxysmal AFib. PAST SURGICAL HISTORY: Patient has had a Port-A-Cath placement. ALLERGIES: CEFTRIAXONE. FAMILY HISTORY: Noncontributory. SOCIAL HISTORY: Does not drink, smoke, or do drugs. MEDICATIONS: Reviewed and reconciled. REVIEW OF SYSTEMS: Unable to do adequate review of systems, the patient is obtunded. Pertinent positives obtained by reviewing medical records, speaking to hospital staff, stated in HPI, otherwise negative. PHYSICAL EXAMINATION: VITAL SIGNS: Blood pressure is 106/50, respirations 20, pulse 88, temperature 98.6. HEENT: Head is normocephalic. Pupils are reactive to light. NECK: Supple. CARDIAC: Heart is tachycardic. LUNGS: Showed diminished breath sounds at the base. ABDOMEN: Soft, nontender to palpation. No rebound or guarding. EXTREMITIES: Negative for clubbing, cyanosis. Trace edema. DERMATOLOGIC: Clean. No rashes. MUSCULOSKELETAL: No joint effusion. NEUROLOGIC: Limited exam, as patient is obtunded. LABORATORY: From 01/10 shows sodium 141, potassium 5.3, BUN 16, creatinine 1.28, glucose 341. BNP 7000. INR is 1.51. Digoxin level 2.2. White count was 30,000, hemoglobin 10.7, crit 36.0, platelet count 293. ABG shows pH 7.368, pCO2 of 48. Chest x-ray reviewed, shows cardiomegaly, vascular congestion, bilateral infiltrates, bilateral pleural effusions, right-sided PleurX catheter, consolidation versus mass noted. ASSESSMENT AND PLAN: This is a 81-year-old female who presents with: 1. Shock, presumed septic. Underlying source likely pneumonia. Other possibilities such as urinary tract infection will be considered. The patient's chest x-ray shows consolidation with elevated lactic acid. At this point, we will continue broad- spectrum antibiotics of vancomycin and cefepime. Lactic acid levels have normalized. We will check procalcitonin level. Cultures have been sent. We will follow up blood cultures. An ID consult was placed with Dr. Edwards. We will continue the patient on presser support and continue intravenous albumin for volume expansion. Would defer diuretic therapy at this time, in the setting of shock. 2. Ventilatory-dependent respiratory failure. Etiology secondary to pulmonary congestion, pneumonia. The patient's vent settings and ABGs reviewed. We will monitor closely. Pulmonary consult was placed for evaluation. 3. Nonoliguric acute kidney injury with unknown baseline creatinine. Etiology may be secondary to septic acute kidney injury, acute tubular necrosis from ischemic hypoperfusion. Plan is to check a UA, check urine electrolytes. We will check a renal ultrasound. We will monitor renal function closely. 4. Yhlqf-[id number] heart failure, systolic-diastolic. The patient is currently intubated on presser support. The patient is status post diuretics. At this point, would defer diuretics in the setting of shock. We will follow up with Cardiology. 5. Atrial fibrillation with rapid ventricular rate. Continue current medical management. Follow up with Cardiology recommendations. 6. Hyperkalemia, likely secondary to acute kidney injury in conjunction with hyperglycemia. We will continue to monitor. 7. Diabetes. We will place patient on Accu-Cheks and insulin sliding scale. 8. A history of chronic lymphocytic leukemia. We will place oncology consult, hematology consult for evaluation. 9. History of coronary artery disease. Continue medical management. 10. Left lower extremity deep vein thrombosis. We will continue the patient on Lovenox. We will have it renally dosed. 11. Anemia. Monitor H and H levels. 12. Mineral bone disorder. Monitor calcium and phosphorus levels. 13. History of pulmonary hypertension. Continue current medical management. Follow up with Pulmonary. 14. Gastrointestinal and deep venous thrombosis prophylaxis. Continue proton pump inhibitor and Lovenox. 15. History of asthma. Please note, I spent over 30 minutes of critical care time with this patient. Please note, I attempted to contact the patient's family. Message was left. Dictated By: Timo Mccracken DO /linette/annetta /Document#: [id number]
[2017-01-11 09:42] LABS: AADO2 Arterial 203.7 mmHg (7.0-24.0); Arterial Base Excess 6.6 mmol/L (-3.0-3); Arterial COHb 0.3 % (0.0-3.0); Arterial Fraction of Oxyhgb 98.4 % (93.0-99.0); Arterial HCO3 30.3 mmol/L (22.0-26.0); Arterial MetHb 0.2 % (0.0-1.5); Arterial Total Hemglobin 10.6 g/dl (12.0-18.0); MODE VENT - AC
[2017-01-11] MEDS: ALBUMIN HUMAN 25% 100 ML IV SCH ×3 (09:51→23:11)
--- NOTE | 2017-01-11 10:50 | CONS ---
Date/Time of Note Date/Time of Note DATE: 01/11/17 TIME: 10:50 Consultation Date/Type/Reason Admit Date/Time Date of Consultation: Jan 11, 2017 Type of Consultation: Pulmonary/critical care Hx of Present Illness Consult dictated #[id number] Past Surgical History Past Surgical Hx: noncontributory Social History Smoking Status: Never smoker Exam/Review of Systems Vital Signs Vitals Vital Signs Date Time Temp Pulse Resp B/P Pulse Ox O2 Delivery O2 Flow Rate FiO2 01/11/17 09:00 86 20 107/61 100 Mechanical Ventilator 01/11/17 08:00 99.2 01/11/17 06:08 60 Intake and Output 01/10/17 01/10/17 01/11/17 15:00 23:00 07:00 Intake Total 683.779 ml Output Total 975 ml Balance -291.221 ml Results Result Diagram: 01/11/17 0420 01/11/17 0420 Results 24 hrs Laboratory Tests Test 01/10/17 15:12 01/10/17 15:25 01/10/17 18:10 01/10/17 20:05 Blood Gas Specimen Source Blood arterial Blood arterial Arterial Blood Date Drawn 01/10/2017 3:37:55 PM 01/10/2017 6:17:36 PM Arterial Blood pH (Temp corrected) 7.186 *L 7.368 Arterial Blood pCO2 (Temp correct) 87.5 *H 48.3 H Arterial Blood pO2 (Temp corrected) 72.1 L 79.3 L Arterial Blood HCO3 32.4 H 27.2 H Arterial Blood Base Excess 1.9 1.4 Arterial Blood Oxygen Saturation 89.4 L 94.8 L Blayne Test ACCEPTAB ACCEPTAB Arterial Blood Gas Puncture Site Right Radial Right Radial Arterial Blood Carboxyhemoglobin 0.3 0.3 Arterial Blood Methemoglobin 0.3 0.3 Blood Gas A-a O2 Differential 553.4 H 585.4 H Oxyhemoglobin Percent 88.9 L 94.2 Total Hemoglobin 12.0 11.3 L Blood Gas Temperature 37.0 37.0 Blood Gas Respiration Rate 18.0 20.0 Blood Gas Actual Respiration Rate 51 20 Blood Gas Modality MASK - BIPAP VENT - AC FiO2 100.0 100.0 Blood Gas Pressure Support 12 Blood Gas IPAP/EPAP Ratio 20/8 Blood Gas Critical Value Read Back DR. LEANDRO REEVES Blood Gas Notified Whom Olya Dobson Blood Gas Notified Time 01/10/2017 3:44:39 PM 01/10/2017 6:25:11 PM White Blood Count 30.8 #H Red Blood Count 3.55 L Hemoglobin 10.7 L Hematocrit 36.0 L Mean Corpuscular Volume 101.4 H Mean Corpuscular Hemoglobin 30.1 Mean Corpuscular Hemoglobin Concent 29.7 L Red Cell Distribution Width 15.3 #H Platelet Count 293 Mean Platelet Volume 10.0 # Neutrophils % Segmented Neutrophils % (Manual) 15 L Lymphocytes % Lymphocytes % (Manual) 76 H Monocytes % Monocytes % (Manual) 9 Eosinophils % Basophils % Nucleated Red Blood Cells % 0.0 Neutrophils # Absolute Lymphocytes (Manual) 23.4 H Lymphocytes # Monocytes # Absolute Monocytes (Manual) 2.7 H Eosinophils # Basophils # Nucleated Red Blood Cells # Platelet Estimate NORMAL Platelet Morphology Comment @See below Polychromasia 1+ Anisocytosis 1+ Ovalocytes 1+ Prothrombin Time 19.9 H Prothrombin Time Ratio 1.6 INR International Normalized Ratio 1.68 Activated Partial Thromboplast Time 33.6 Sodium Level 141 Potassium Level 5.3 H Chloride Level 97 Carbon Dioxide Level 31 Anion Gap 18 H Blood Urea Nitrogen 16 Creatinine 1.28 H Glucose Level 341 H Lactic Acid Level 4.9 *H 2.2 *H Calcium Level 8.9 Total Bilirubin 0.4 Direct Bilirubin 0.00 Indirect Bilirubin 0.4 Aspartate Amino Transf (AST/SGOT) 34 Alanine Aminotransferase (ALT/SGPT) 29 Alkaline Phosphatase 118 Troponin I 0.014 B-Type Natriuretic Peptide 7020 H Total Protein 7.0 Albumin 4.3 Globulin 2.70 Albumin/Globulin Ratio 1.59 Blood Gas Tidal Volume 400.0 Blood Gas Low PEEP Setting 8.0 Test 01/10/17 22:10 01/11/17 02:07 01/11/17 04:20 01/11/17 07:00 Lactic Acid Level 2.0 Bedside Glucose 123 White Blood Count 18.8 #H Red Blood Count 3.28 L Hemoglobin 9.6 L Hematocrit 31.8 L Mean Corpuscular Volume 97.0 Mean Corpuscular Hemoglobin 29.3 Mean Corpuscular Hemoglobin Concent 30.2 L Red Cell Distribution Width 15.6 H Platelet Count 262 Mean Platelet Volume 10.1 Neutrophils % Segmented Neutrophils % (Manual) 35 L Lymphocytes % Lymphocytes % (Manual) 51 Monocytes % Monocytes % (Manual) 14 H Eosinophils % Basophils % Nucleated Red Blood Cells % 0.2 H Neutrophils # Absolute Lymphocytes (Manual) 9.5 H Lymphocytes # Monocytes # Absolute Monocytes (Manual) 2.6 H Eosinophils # Basophils # Nucleated Red Blood Cells # Platelet Estimate NORMAL Polychromasia 3+ Hypochromasia 1+ Poikilocytosis 1+ Anisocytosis 2+ Microcytosis 2+ Prothrombin Time 18.3 H Prothrombin Time Ratio 1.4 INR International Normalized Ratio 1.51 Sodium Level 139 Potassium Level 4.8 Chloride Level 99 Carbon Dioxide Level 34 H Anion Gap 11 # Blood Urea Nitrogen 23 H Creatinine 1.31 H Glucose Level 122 # Calcium Level 8.9 Magnesium Level 2.2 Total Bilirubin 0.4 Direct Bilirubin 0.00 Indirect Bilirubin 0.4 Aspartate Amino Transf (AST/SGOT) 34 Alanine Aminotransferase (ALT/SGPT) 30 Alkaline Phosphatase 109 Creatine Kinase 21 L Creatine Kinase Index 5.1 Creatinine Kinase MB (Mass) 1.07 Troponin I 0.070 B-Type Natriuretic Peptide Pending Total Protein 5.8 #L Albumin 3.3 # Globulin 2.50 Albumin/Globulin Ratio 1.32 Triglycerides Level 126 Cholesterol Level 87 L LDL Cholesterol, Calculated 33 HDL Cholesterol 29 L Cholesterol/HDL Ratio 3.0 Thyroid Stimulating Hormone (TSH) Pending Free Thyroxine 1.50 Digoxin Level 2.2 *H Blood Gas Specimen Source Blood arterial Arterial Blood Date Drawn 01/11/2017 7:07:42 AM Arterial Blood pH (Temp corrected) 7.499 H Arterial Blood pCO2 (Temp correct) 39.8 Arterial Blood pO2 (Temp corrected) 180.3 H Arterial Blood HCO3 30.3 H Arterial Blood Base Excess 6.6 H Arterial Blood Oxygen Saturation 98.9 Blayne Test N/A Arterial Blood Gas Puncture Site Right Brachial Arterial Blood Carboxyhemoglobin 0.3 Arterial Blood Methemoglobin 0.2 Blood Gas A-a O2 Differential 203.7 H Oxyhemoglobin Percent 98.4 Total Hemoglobin 10.6 L Blood Gas Temperature 37.0 Blood Gas Respiration Rate 20.0 Blood Gas Actual Respiration Rate 20 Blood Gas Modality VENT - AC FiO2 60.0 Blood Gas Tidal Volume 400.0 Blood Gas Low PEEP Setting 8.0 Blood Gas Notified Whom TM Blood Gas Notified Time 01/11/2017 7:30:31 AM Test 01/11/17 08:03 Lactic Acid Level 1.3 Medications Medications Current Medications Phenylephrine HCl 80 mg/Dextrose 250 ml @ 0 mls/hr TITRATE IV Last administered on 01/11/17 02:35; Admin Dose 28.12 MLS/HR; Start 01/10/17 at 20: 30 Propofol 100 ml @ 2.045 mls/ hr Q12H IV Last administered on 01/11/17 02:08; Admin Dose 8.182 MLS/HR; Start 01/11/17 at 01:30 Albumin Human (Albumin Human 25%) 100 ml @ 100 mls/hr Q8H IV Last administered on 01/11/17 09:51; Admin Dose 100 MLS/HR; Start 01/11/17 at 07:30 ; Stop 01/12/17 at 00:29 Diagnostic Test (Pha) 1 ea 1 ea 02 XX ; Start 01/12/17 at 02:00 Vancomycin HCl (Vancocin) 250 ml @ 125 mls/hr Q24H IVPB ; Start 01/11/17 at 09: 00 RADHA CAMACHO Jan 11, 2017 10:50
[2017-01-11] MEDS: VANCOMYCIN 1 GM in NS 250 ML IVPB SCH (11:05)
--- NOTE | 2017-01-11 12:19 | CONS ---
DATE OF ADMISSION: 01/10/2017 DATE OF CONSULTATION: 01/11/2017 TIME: 10 a.m. REFERRING PHYSICIAN: Timo Mccracken DO REASON FOR CONSULTATION: For evaluation of sepsis. HISTORY OF PRESENT ILLNESS: Patient is a 79-year-old lady who was brought into the hospital with complaints of being short of breath. Upon evaluation, patient was found to be in respiratory failure. She was initially tried on BiPAP, however, the patient continued to have significant O2 desaturation and was then intubated by the ER physician. By the time I saw the patient, the patient was in ICU on mechanical ventilation via endotracheal tube and awake. History was obtained from medical records. Patient also has remained quite hypotensive requiring high-dose pressor support. Patient also was in cardiac arrhythmia and was given amiodarone bolus as well as digoxin with conversion to sinus rhythm. PAST MEDICAL HISTORY: 1. History of coronary artery disease. 2. CLL. 3. Anemia. 4. Hypertension. 5. Hypothyroidism. 6. Obesity. 7. Pulmonary hypertension. 8. Diabetes. 9. History of DVT. 10. History of paroxysmal atrial fibrillation. 11. The patient also is status post MediPort placement. 12. Patient has a history of recurrent right pleural effusion and is status post right-tunneled PleurX catheter placement. MEDICATION: 1. Phenylephrine drip 100 mcg/min. 2. Propofol at 3 mcg/kg/min. 3. The patient also was given albumin 25 percent q.8 hours. 4. Cefepime 1 gram IV q.12 hours. 5. Vancomycin 1 gram IV daily. 6. Digoxin 0.25 mg daily. 7. The patient also received intravenous Cardizem. 8. Lovenox 70 mg daily. 9. Lasix was given 80 mg x1 yesterday evening. ALLERGIES: ROCEPHIN. SOCIAL HISTORY: Patient never smoked. FAMILY HISTORY: Patient does have a supportive family. OCCUPATIONAL HISTORY: Not available. REVIEW OF SYSTEMS: Currently unable to be obtained. PHYSICAL EXAMINATION: GENERAL APPEARANCE: Elderly woman, orally intubated, arousable. Currently in no distress. VITAL SIGNS: Temperature is 99.2 degrees Fahrenheit, respiratory rate is 76 per minute, blood pressure is 108/54, O2 saturation is 99 percent. Patient currently on AC of 20, tidal volume 400, PEEP of 8, 60 percent FiO2. NECK: Supple neck. No JVD. No lymphadenopathy. Midline trachea. No thyromegaly. HEENT: Patient is orally intubated. Pupils are midsize and reactive to light. Patient is edentulous. CHEST: Diminished but clear breath sounds. There is a right PleurX catheter in place. HEART: S1, S2 audible. No murmurs. Regular rhythm. ABDOMEN: Soft, nondistended. Bowel sounds are audible. No organomegaly. EXTREMITIES: Trace lower extremity edema. NEUROLOGIC: Patient is awake. LABORATORY: Chest x-ray was reviewed from today which is showing minimal platelike atelectasis involving the right lower lobe with right lower lobe infiltrate. ABG done at 7 a.m. on assist control of 20, tidal volume 400, PEEP of 8, 60 percent FiO2, pH 7.49, pCO2 of 39, PO2 180. Initial ABG on 100 percent FiO2 on BiPAP at 3:12 p.m. yesterday pH 7.18, pCO2 of 87, PO2 of 72. White count is down to 18.8 from 30.8 of yesterday, hemoglobin is 9.6, platelet count 262. Glucose 139, BUN 23, creatinine 1.3, potassium 4.8, chloride 99, bicarb 34, albumin 3.3. BNP level of 7020. IMPRESSION: 1. Patient admitted with respiratory failure from a combination of pneumonia, as well as congestive heart failure. 2. History of paroxysmal atrial fibrillation. 3. Cardiac arrhythmia. 4. Likely underlying mild chronic renal insufficiency. 5. Congestive heart failure. 6. Persistent hypotension. 7. History of chronic lymphocytic leukemia. 8. History of right PleurX catheter placement. 9. Patient currently has been mildly over oxygenated. RECOMMENDATIONS: Continue current supportive care. Ventilator settings have been adjusted. Rate has been decreased to 16 and FiO2 weaned down to 40 percent. Patient will be given a sedation vacation in 24 hours. 35 minutes of critical care time was spent evaluating the patient. Dictated By: Franky Aparicio MD /linette/josh /Document#: [id number] PREMA
--- NOTE | 2017-01-11 12:41 | RADRPT ---
Echocardiogram Report Patient Name: RIGO CHATTERJEE Gender: Female Date: 1935 Study Date: 11-Jan-2017 Quill Fixer: Bayron Mak [facility] Location: 106 Ref. Physician: CHINO MERCEDES Quality: Adequate Procedures: Transthoracic echocardiogram with complete 2D, M-Mode, and doppler examination. Indications: Congestive Heart Failure. 2D/M Mode Doppler Measurement Value Normal Ranges Measurement Value Normal Ranges LVIDd 2D 4.3 3.5 - 5.6 cm AV Peak Patrice 1.8 m/sec LVIDs 2D 3.6 2.1 - 4.1 cm AV Peak PG 12.0 mmHg FS 2D 17.1 % LVOT Peak Patrice 0.9 m/sec LVPWd 2D 1.0 0.6 - 1.1 cm LVOT Peak PG 3.0 mmHg IVSd 2D 0.9 0.6 - 1.1 cm MV Peak Patrice 1.2 m/sec IVS/LVPW 2D 1.0 MV Peak PG 6.0 mmHg AoR Diam 2D 2.5 2.0 - 3.7 cm MV Mean Patrice 0.5 m/sec LA/Ao 2D 1 0 - 1 MV Mean PG 2.0 mmHg EDV 2D 81.2 cm3 MV VTI 18.4 cm ESV 2D 46.3 cm3 MR Peak PG 91.0 mmHg LA Dimen 2D 3.6 2.3 - 4.0 cm MR Peak Patrice 4.8 m/sec TR Peak Patrice 3.3 m/sec TR Peak PG 43.0 mmHg RVSP 53.0 mmHg Findings Left Ventricle: Normal left ventricular cavity size. Normal left ventricular wall thickness. Severe left ventricular systolic dysfunction. Ejection fraction is visually estimated at 25 %. Multiple segmental wall motion abnormalities. Right Ventricle: Normal right ventricular size. Normal right ventricular systolic function. Left Atrium: There is mild enlargement of left atrium. Right Atrium: The right atrium is normal in size. Mitral Valve: Mild mitral leaflet calcification. Mild mitral annular calcification. Mild mitral valve regurgitation. Aortic Valve: Aortic sclerosis without stenosis. Trace aortic valve regurgitation. Tricuspid Valve: Normal appearance of the tricuspid valve. Estimated peak PA systolic pressure 53 mmHg. There is mild tricuspid regurgitation. Pulmonic Valve: Pulmonic valve not well visualized. There is trace pulmonic regurgitation. Pericardium: There is an anterior echo free space consistent with epicardial fat pad. Aorta: Normal aortic root. IVC: Inferior vena cava without respiratory collapse, however, patient on ventilator. Conclusions 1.Normal left ventricular cavity size. Normal left ventricular wall thickness. Severe left ventricular systolic dysfunction. Ejection fraction is visually estimated at 25 %. Multiple segmental wall motion abnormalities. 2.There is mild enlargement of left atrium. 3.Mild mitral leaflet calcification. Mild mitral annular calcification. Mild mitral valve regurgitation. 4.Aortic sclerosis without stenosis. Trace aortic valve regurgitation. 5.Normal appearance of the tricuspid valve. Estimated peak PA systolic pressure 53 mmHg. There is mild tricuspid regurgitation. 6.Inferior vena cava without respiratory collapse, however, patient on ventilator. Electronically Signed By: Chino Mercedes 11-Jan-2017 12:40:19 -0700 Patient Name: RIGO CHATTERJEE Study Date: 11-Jan-[id number]
[2017-01-11 12:42] LABS: THYROID STIMULATING HORMONE 3.52 MIU/L (0.465-4.680)
--- NOTE | 2017-01-11 13:23 | CONS ---
Date/Time of Note Date/Time of Note DATE: 01/11/17 TIME: 13:16 Consult Date/Type/Reason Admit Date/Time Jan 10, 2017 at 23:15 Initial Consult Date 01/11/17 Type of Consultation: cardiology Subjective CARDIOLOGY/ critical care follow up note: S: D/W staff and rhythm was reviewed. pt remains in afib. HR has been better controlled. she is still hypotensive in ICU on vent and on neosyn drip. pt is nonverbal. O: gen: intubated on vent HEENT: Pupils are equal NECK: + JVD CV: irregularly irregular. systolic murmur Chest: s/p pelurodex right side GI: soft NT ND. no rebound. no guarding ext: + diffuse LE edema neuro:Sedated/ Derm: multiple echymosis psych; calm now ECG reviewed: afib RVR. ant infarct. CXR reviewed CHF. S/P pleurodex ECHO reviewed personally: 1. Normal left ventricular cavity size. Normal left ventricular wall thickness. Severe left ventricular systolic dysfunction. Ejection fraction is visually estimated at 25 %. Multiple segmental wall motion abnormalities. 2. There is mild enlargement of left atrium. 3. Mild mitral leaflet calcification. Mild mitral annular calcification. Mild mitral valve regurgitation. 4. Aortic sclerosis without stenosis. Trace aortic valve regurgitation. 5. Normal appearance of the tricuspid valve. Estimated peak PA systolic pressure 53 mmHg. There is mild tricuspid regurgitation. 6. Inferior vena cava without respiratory collapse, however, patient on ventilator. . Objective Vital Signs Date Time Temp Pulse Resp B/P Pulse Ox O2 Delivery O2 Flow Rate FiO2 01/11/17 12:00 100 01/11/17 09:00 20 107/61 100 Mechanical Ventilator 01/11/17 08:00 99.2 01/11/17 06:08 60 Intake and Output 01/10/17 01/10/17 01/11/17 15:00 23:00 07:00 Intake Total 683.779 ml Output Total 1075 ml Balance -391.221 ml Results/Medications Result Diagram: 01/11/17 0420 01/11/17 0420 Results 24 hrs Laboratory Tests Test 01/10/17 15:12 01/10/17 15:25 01/10/17 18:10 01/10/17 20:05 Blood Gas Specimen Source Blood arterial Blood arterial Arterial Blood Date Drawn 01/10/2017 3:37:55 PM 01/10/2017 6:17:36 PM Arterial Blood pH (Temp corrected) 7.186 *L 7.368 Arterial Blood pCO2 (Temp correct) 87.5 *H 48.3 H Arterial Blood pO2 (Temp corrected) 72.1 L 79.3 L Arterial Blood HCO3 32.4 H 27.2 H Arterial Blood Base Excess 1.9 1.4 Arterial Blood Oxygen Saturation 89.4 L 94.8 L Blayne Test ACCEPTAB ACCEPTAB Arterial Blood Gas Puncture Site Right Radial Right Radial Arterial Blood Carboxyhemoglobin 0.3 0.3 Arterial Blood Methemoglobin 0.3 0.3 Blood Gas A-a O2 Differential 553.4 H 585.4 H Oxyhemoglobin Percent 88.9 L 94.2 Total Hemoglobin 12.0 11.3 L Blood Gas Temperature 37.0 37.0 Blood Gas Respiration Rate 18.0 20.0 Blood Gas Actual Respiration Rate 51 20 Blood Gas Modality MASK - BIPAP VENT - AC FiO2 100.0 100.0 Blood Gas Pressure Support 12 Blood Gas IPAP/EPAP Ratio 20/8 Blood Gas Critical Value Read Back DR. LEANDRO REEVES Blood Gas Notified Whom Olya Dobson Blood Gas Notified Time 01/10/2017 3:44:39 PM 01/10/2017 6:25:11 PM White Blood Count 30.8 #H Red Blood Count 3.55 L Hemoglobin 10.7 L Hematocrit 36.0 L Mean Corpuscular Volume 101.4 H Mean Corpuscular Hemoglobin 30.1 Mean Corpuscular Hemoglobin Concent 29.7 L Red Cell Distribution Width 15.3 #H Platelet Count 293 Mean Platelet Volume 10.0 # Neutrophils % Segmented Neutrophils % (Manual) 15 L Lymphocytes % Lymphocytes % (Manual) 76 H Monocytes % Monocytes % (Manual) 9 Eosinophils % Basophils % Nucleated Red Blood Cells % 0.0 Neutrophils # Absolute Lymphocytes (Manual) 23.4 H Lymphocytes # Monocytes # Absolute Monocytes (Manual) 2.7 H Eosinophils # Basophils # Nucleated Red Blood Cells # Platelet Estimate NORMAL Platelet Morphology Comment @See below Polychromasia 1+ Anisocytosis 1+ Ovalocytes 1+ Prothrombin Time 19.9 H Prothrombin Time Ratio 1.6 INR International Normalized Ratio 1.68 Activated Partial Thromboplast Time 33.6 Sodium Level 141 Potassium Level 5.3 H Chloride Level 97 Carbon Dioxide Level 31 Anion Gap 18 H Blood Urea Nitrogen 16 Creatinine 1.28 H Glucose Level 341 H Lactic Acid Level 4.9 *H 2.2 *H Calcium Level 8.9 Total Bilirubin 0.4 Direct Bilirubin 0.00 Indirect Bilirubin 0.4 Aspartate Amino Transf (AST/SGOT) 34 Alanine Aminotransferase (ALT/SGPT) 29 Alkaline Phosphatase 118 Troponin I 0.014 B-Type Natriuretic Peptide 7020 H Total Protein 7.0 Albumin 4.3 Globulin 2.70 Albumin/Globulin Ratio 1.59 Blood Gas Tidal Volume 400.0 Blood Gas Low PEEP Setting 8.0 Test 01/10/17 22:10 01/11/17 02:07 01/11/17 04:20 01/11/17 07:00 Lactic Acid Level 2.0 Bedside Glucose 123 White Blood Count 18.8 #H Red Blood Count 3.28 L Hemoglobin 9.6 L Hematocrit 31.8 L Mean Corpuscular Volume 97.0 Mean Corpuscular Hemoglobin 29.3 Mean Corpuscular Hemoglobin Concent 30.2 L Red Cell Distribution Width 15.6 H Platelet Count 262 Mean Platelet Volume 10.1 Neutrophils % Segmented Neutrophils % (Manual) 35 L Lymphocytes % Lymphocytes % (Manual) 51 Monocytes % Monocytes % (Manual) 14 H Eosinophils % Basophils % Nucleated Red Blood Cells % 0.2 H Neutrophils # Absolute Lymphocytes (Manual) 9.5 H Lymphocytes # Monocytes # Absolute Monocytes (Manual) 2.6 H Eosinophils # Basophils # Nucleated Red Blood Cells # Platelet Estimate NORMAL Polychromasia 3+ Hypochromasia 1+ Poikilocytosis 1+ Anisocytosis 2+ Microcytosis 2+ Prothrombin Time 18.3 H Prothrombin Time Ratio 1.4 INR International Normalized Ratio 1.51 Sodium Level 139 Potassium Level 4.8 Chloride Level 99 Carbon Dioxide Level 34 H Anion Gap 11 # Blood Urea Nitrogen 23 H Creatinine 1.31 H Glucose Level 122 # Calcium Level 8.9 Magnesium Level 2.2 Total Bilirubin 0.4 Direct Bilirubin 0.00 Indirect Bilirubin 0.4 Aspartate Amino Transf (AST/SGOT) 34 Alanine Aminotransferase (ALT/SGPT) 30 Alkaline Phosphatase 109 Creatine Kinase 21 L Creatine Kinase Index 5.1 Creatinine Kinase MB (Mass) 1.07 Troponin I 0.070 B-Type Natriuretic Peptide 9300 H Total Protein 5.8 #L Albumin 3.3 # Globulin 2.50 Albumin/Globulin Ratio 1.32 Triglycerides Level 126 Cholesterol Level 87 L LDL Cholesterol, Calculated 33 HDL Cholesterol 29 L Cholesterol/HDL Ratio 3.0 Thyroid Stimulating Hormone (TSH) 3.520 Free Thyroxine 1.50 Digoxin Level 2.2 *H Blood Gas Specimen Source Blood arterial Arterial Blood Date Drawn 01/11/2017 7:07:42 AM Arterial Blood pH (Temp corrected) 7.499 H Arterial Blood pCO2 (Temp correct) 39.8 Arterial Blood pO2 (Temp corrected) 180.3 H Arterial Blood HCO3 30.3 H Arterial Blood Base Excess 6.6 H Arterial Blood Oxygen Saturation 98.9 Blayne Test N/A Arterial Blood Gas Puncture Site Right Brachial Arterial Blood Carboxyhemoglobin 0.3 Arterial Blood Methemoglobin 0.2 Blood Gas A-a O2 Differential 203.7 H Oxyhemoglobin Percent 98.4 Total Hemoglobin 10.6 L Blood Gas Temperature 37.0 Blood Gas Respiration Rate 20.0 Blood Gas Actual Respiration Rate 20 Blood Gas Modality VENT - AC FiO2 60.0 Blood Gas Tidal Volume 400.0 Blood Gas Low PEEP Setting 8.0 Blood Gas Notified Whom TM Blood Gas Notified Time 01/11/2017 7:30:31 AM Test 01/11/17 08:03 Lactic Acid Level 1.3 Medications Current Medications Phenylephrine HCl 80 mg/Dextrose 250 ml @ 0 mls/hr TITRATE IV Last administered on 01/11/17 02:35; Admin Dose 28.12 MLS/HR; Start 01/10/17 at 20: 30 Propofol 100 ml @ 2.045 mls/ hr Q12H IV Last administered on 01/11/17 11:25; Admin Dose 12.272 MLS/HR; Start 01/11/17 at 01:30 Albumin Human (Albumin Human 25%) 100 ml @ 100 mls/hr Q8H IV Last administered on 01/11/17 09:51; Admin Dose 100 MLS/HR; Start 01/11/17 at 07:30 ; Stop 01/12/17 at 00:29 Diagnostic Test (Pha) 1 ea 1 ea 02 XX ; Start 01/12/17 at 02:00 Vancomycin HCl (Vancocin) 250 ml @ 125 mls/hr Q24H IVPB Last administered on 11:05; Admin Dose 125 MLS/HR; Start 01/11/17 at 09:00 Enoxaparin Sodium (Lovenox) 70 mg Q12 SC ; Start 01/11/17 at 12:30 Assessment/Plan Chief Complaint/Hosp Course 1. shock: cardiogenic and probably septic combination 2. CHF: acute on chronic probably due to systolic and diastolic heart failure 3. acute hypoxemic/ hypercapnic resp failure: s/ p intubation now 4. Afib with RVR 5. HX CAD 6/ HX PCI RCA 2009 7. HX HTN: now hypotensive 8. hyper K 9. hx CLL 10. ANEMIA 11. Lactic acidosis 12. dyslipidemia 13./ hx DVT ( treated with XARELTO at home) 14. severe cardiomyopathy EF 20% NOW. REC: cont ICU care and vent supoport for now hold dig for now and titrate off NEOSYNERPHRINE DRIP ECHO shows severe LV dysfunction. PULM CONSULT input is greatly appreciated. UNABLE to resume betablocker/ cardizem due to hypotension now. check dig level in AM. BUMEX DRIP today. CONT ICU CARE. more than 38 min of critical time was spent in management and treatment of this critically ill patient excluding any procedure. thank you. CHINO MERCEDES MD [facility]GED WITH [facility] Problems: CHINO MERCEDES MD Jan 11, 2017 13:23
[2017-01-11] MEDS ORDERED: BUMETANIDE IV ONE (14:30)
[2017-01-11] MEDS ORDERED: DEXTROSE 5% IV ONE (14:30)
[2017-01-11] MEDS: ENOXAPARIN 80 MG/0.8 ML SYG SC SCH ×2 (14:34→20:38)
[2017-01-11] MEDS: MEROPENEM 500MG/50 ML (PMX) 50 ML IVPB SCH ×2 (15:33→20:36)
--- NOTE | 2017-01-11 15:58 | PN ---
DATE: 01/11/2017 SUBJECTIVE: The patient is intubated and sedated. Looks comfortable on pressors. No fevers. LABORATORY AND DIAGNOSTIC DATA: WBC today 18.8, H and H 9.6 and 31.8, platelets 262, BUN 23, creatinine 1.31. Microbiology cultures are pending. DIAGNOSTICS: Chest x-ray this morning revealed bilateral pleural effusions with pulmonary vascular congestion. INDWELLINGS: Endotracheal tube, NG tube, Sifuentes, left IJ triple lumen catheter. ANTIMICROBIALS: Patient is on IV vancomycin and cefepime. PHYSICAL EXAMINATION: GENERAL: This is an obese, chronically ill appearing, well- developed, elderly woman, who is intubated, sedated, and in no distress. HEENT: Head atraumatic, normocephalic. Sclerae anicteric. Buccal mucosa dry. NECK: Supple. CHEST: Rise symmetrical. Breath sounds diminished at the bases. HEART: S1, S2. ABDOMEN: Soft, bowel sounds hypoactive. EXTREMITIES: Cyanotic, cool to touch. SKIN: No jaundice. No cyanosis. ASSESSMENT: 1. Sepsis with shock. 2. Acute respiratory failure. 3. Possible aspiration pneumonia. 4. Fluid overload. 5. Chronic lymphocytic leukemia. 6. Diabetes. 7. Atrial fibrillation. 8. History of lower extremity deep vein thrombosis. PLAN: The patient remains hemodynamically unstable. Cultures are pending. She is covered with vancomycin, status post cefepime. We will change cefepime to meropenem given allergy to Rocephin. Dictated By: Elvin Owusu NP /linette/mario /Document#: [id number]
[2017-01-11 17:25] LABS: ADD UMIC NO; UR ASCORBIC ACID NEGATIVE (NEGATIVE); UR BACTERIA FEW /HPF (NONE SEEN); UR BILIRUBIN (Dip) NEGATIVE (NEGATIVE); UR BLOOD (Dip) NEGATIVE (NEGATIVE); UR CLARITY SLIGHTLY CLOUDY (CLEAR); UR COLOR YELLOW (YELLOW); UR GLUCOSE (Dip) NEGATIVE (NEGATIVE); UR KETONES (Dip) TRACE mg/dL (NEGATIVE); UR LEUKOCYTE ESTERASE (Dip) NEGATIVE Leu/ul (NEGATIVE); UR NITRITE (Dip) NEGATIVE (NEGATIVE); UR RBC 1 /HPF (0-5); UR TOTAL PROTEIN (Dip) NEGATIVE (NEGATIVE); UR UROBILINOGEN (Dip) NEGATIVE (NEGATIVE)
[2017-01-11] MEDS: ACCU-CHEK XX SCH (21:57)
[2017-01-12] VITALS (96 sets, daily range): BP systolic 72–129; BP diastolic 40–101; PULSE 77–135; RESP 10–31
[2017-01-12] MEDS: PROPOFOL 100 ML IV SCH ×2 (01:40→08:16)
[2017-01-12 05:45] LABS: ABNORMAL IP MESSAGE 1; BASOPHILS % 0.2 % (0.0-2.0); EOSINOPHILS % 0.2 % (0.0-7.0); HEMATOCRIT 26.1 % (37.0-47.0); HEMOGLOBIN 7.8 g/dl (12.0-16.0); LYMPHOCYTES # 3.6 10^3/ul (0.8-2.9); MEAN CORPUSCULAR HGB CONC 29.9 g/dl (32.0-37.0); MONOCYTE # 2.1 10^3/ul (0.3-0.9); MONOCYTES % 25.7 % (0.0-11.0); NEUTROPHILS % 24.4 % (39.0-77.0); PLATELET COUNT 177 10^3/UL (140-415); RED BLOOD COUNT 2.69 10^6/ul (4.20-5.40); RED CELL DISTRIBUTION WIDTH 15.7 % (11.5-14.5); WHITE BLOOD COUNT 8.1 10^3/ul (4.8-10.8)
[2017-01-12 05:54] LABS: INR 1.23; PROTIME 15.6 Sec (12.2-14.2); PT RATIO 1.2
[2017-01-12 06:12] LABS: POSITIVE DIFF @See below
[2017-01-12] MEDS: PHENYLephrine 40 MG in DEXTROSE 5% 246 ML IV SCH (06:18)
[2017-01-12 06:23] LABS: CREATINE KINASE < 20 IU/L (23-200)
[2017-01-12 06:26] LABS: CK-MB 0.46 ng/ml (0.0-2.4)
[2017-01-12 06:32] LABS: ALBUMIN 3.7 g/dl (3.3-4.9); ALBUMIN/GLOBULIN RATIO 1.68; BILIRUBIN,INDIRECT 0.3 mg/dl (0-1.1); BILIRUBIN,TOTAL 0.3 mg/dl (0.2-1.3); CALCIUM 9.3 mg/dl (8.4-10.2); CREATININE 1.21 mg/dl (0.44-1.00); POTASSIUM 3.3 mmol/L (3.5-5.1); TOTAL PROTEIN 5.9 g/dl (6.1-8.1)
[2017-01-12] MEDS ORDERED: POTASSIUM CHLORIDE 250 ML IVPB ONE (07:00)
[2017-01-12 07:02] LABS: MAGNESIUM 1.9 mg/dl (1.7-2.5); PHOSPHORUS 3.5 mg/dl (2.5-4.9)
[2017-01-12 07:39] LABS: AADO2 Arterial 72.7 mmHg (7.0-24.0); Allen Test ACCEPTAB; Arterial COHb 0.3 % (0.0-3.0); Arterial Fraction of Oxyhgb 95.2 % (93.0-99.0); Arterial HCO3 34.8 mmol/L (22.0-26.0); Arterial MetHb 0.3 % (0.0-1.5); Arterial Total Hemglobin 8.6 g/dl (12.0-18.0); MODE VENT - AC
[2017-01-12 07:54] LABS: PATH REVIEW DK
[2017-01-12] MEDS ORDERED: DIGOXIN 500 MCG INJ IV ONE (08:00)
--- NOTE | 2017-01-12 08:04 | CONS ---
Date/Time of Note Date/Time of Note DATE: 01/12/17 TIME: 07:58 Consult Date/Type/Reason Admit Date/Time Jan 10, 2017 at 23:15 Initial Consult Date 01/11/17 Type of Consultation: cardiology Subjective CARDIOLOGY/ critical care follow up note: S: D/W staff and rhythm was reviewed. pt remains in afib. HR has been better controlled mostly but still intermittently elevatrd. . she is still hypotensive in ICU on vent and on neosyn drip. pt is nonverbal. her old records were extensively reviewed pt's EF was normal at 50-55% on 01/01/17 O: gen: intubated on vent HEENT: Pupils are equal NECK: + JVD CV: irregularly irregular. systolic murmur Chest: s/p pelurodex right side GI: soft NT ND. no rebound. no guarding ext: + diffuse LE edema neuro:Sedated/ Derm: multiple echymosis psych; calm now ECG reviewed: afib RVR. ant infarct. CXR reviewed CHF. S/P pleurodex ECHO 01/11/17reviewed personally: 1. Normal left ventricular cavity size. Normal left ventricular wall thickness. Severe left ventricular systolic dysfunction. Ejection fraction is visually estimated at 25 %. Multiple segmental wall motion abnormalities. 2. There is mild enlargement of left atrium. 3. Mild mitral leaflet calcification. Mild mitral annular calcification. Mild mitral valve regurgitation. 4. Aortic sclerosis without stenosis. Trace aortic valve regurgitation. 5. Normal appearance of the tricuspid valve. Estimated peak PA systolic pressure 53 mmHg. There is mild tricuspid regurgitation. 6. Inferior vena cava without respiratory collapse, however, patient on ventilator. ECHO 01/01/17: EF 50-55%. LAE. MOD/ SEVERE MR. Objective Vital Signs Date Time Temp Pulse Resp B/P Pulse Ox O2 Delivery O2 Flow Rate FiO2 01/12/17 06:45 114 16 108/58 97 01/12/17 06:00 Mechanical Ventilator 01/12/17 05:25 30 01/12/17 04:00 99.3 Intake and Output 01/11/17 01/11/17 01/12/17 15:00 23:00 07:00 Intake Total 549.884 ml 481.870 ml 225.329 ml Output Total 900 ml 1350 ml 775 ml Balance -350.116 ml -868.130 ml -549.671 ml Results/Medications Result Diagram: 01/12/17 0430 01/12/17 0430 Results 24 hrs Laboratory Tests Test 01/11/17 08:03 01/11/17 14:00 01/12/17 04:30 01/12/17 07:00 Lactic Acid Level 1.3 Urine Color YELLOW Urine Clarity SLIGHTLY CLOUDY A Urine pH 5.0 Urine Specific [place] 1.010 Urine Ketones TRACE A Urine Nitrite NEGATIVE Urine Bilirubin NEGATIVE Urine Urobilinogen NEGATIVE Urine Leukocyte Esterase NEGATIVE Urine Microscopic RBC 1 Urine Microscopic WBC 5 Urine Bacteria FEW A Urine Hemoglobin NEGATIVE Urine Random Creatinine 27.92 Urine Random Sodium 121 H Urine Glucose NEGATIVE Urine Total Protein NEGATIVE White Blood Count 8.1 # Red Blood Count 2.69 L Hemoglobin 7.8 L Hematocrit 26.1 L Mean Corpuscular Volume 97.0 Mean Corpuscular Hemoglobin 29.0 Mean Corpuscular Hemoglobin Concent 29.9 L Red Cell Distribution Width 15.7 H Platelet Count 177 # Mean Platelet Volume 10.0 Neutrophils % 24.4 L Lymphocytes % 44.0 Monocytes % 25.7 H Eosinophils % 0.2 Basophils % 0.2 Nucleated Red Blood Cells % 0.0 Neutrophils # 2.0 Lymphocytes # 3.6 H Monocytes # 2.1 H Eosinophils # 0.0 Basophils # 0.0 Nucleated Red Blood Cells # 0.0 Prothrombin Time 15.6 H Prothrombin Time Ratio 1.2 INR International Normalized Ratio 1.23 Sodium Level 143 Potassium Level 3.3 L Chloride Level 96 L Carbon Dioxide Level 36 H Anion Gap 14 Blood Urea Nitrogen 18 Creatinine 1.21 H Glucose Level 84 Calcium Level 9.3 Phosphorus Level 3.5 Magnesium Level 1.9 Total Bilirubin 0.3 Direct Bilirubin 0.00 Indirect Bilirubin 0.3 Aspartate Amino Transf (AST/SGOT) 21 Alanine Aminotransferase (ALT/SGPT) 24 Alkaline Phosphatase 73 Creatine Kinase < 20 L Creatine Kinase Index Creatinine Kinase MB (Mass) 0.46 Troponin I 0.040 B-Type Natriuretic Peptide 5340 H Total Protein 5.9 L Albumin 3.7 Globulin 2.20 Albumin/Globulin Ratio 1.68 Digoxin Level 0.9 #L Blood Gas Specimen Source Blood arterial Arterial Blood Date Drawn 01/12/2017 7:06:00 AM Arterial Blood pH (Temp corrected) 7.468 H Arterial Blood pCO2 (Temp correct) 49.2 H Arterial Blood pO2 (Temp corrected) 83.4 Arterial Blood HCO3 34.8 H Arterial Blood Base Excess 10.0 H Arterial Blood Oxygen Saturation 95.8 Blayne Test ACCEPTAB Arterial Blood Gas Puncture Site Right Radial Arterial Blood Carboxyhemoglobin 0.3 Arterial Blood Methemoglobin 0.3 Blood Gas A-a O2 Differential 72.7 H Oxyhemoglobin Percent 95.2 Total Hemoglobin 8.6 L Blood Gas Temperature 37.0 Blood Gas Respiration Rate 14.0 Blood Gas Actual Respiration Rate 17 Blood Gas Modality VENT - AC FiO2 30.0 Blood Gas Tidal Volume 400.0 Blood Gas Low PEEP Setting 8.0 Blood Gas Notified Whom TM Blood Gas Notified Time 01/12/2017 7:30:00 AM Medications Current Medications Propofol (Diprivan) 100 ml @ 2.045 mls/ hr Q12H IV Last administered on 01:40; Admin Dose 12.272 MLS/HR; Start 01/11/17 at 01:30 Diagnostic Test (Pha) 1 ea 1 ea 02 XX ; Start 01/12/17 at 02:00 Vancomycin HCl (Vancocin) 250 ml @ 125 mls/hr Q24H IVPB Last administered on 11:05; Admin Dose 125 MLS/HR; Start 01/11/17 at 09:00 Enoxaparin Sodium 70 mg 70 mg Q12 SC Last administered on 01/11/17 20:38; Admin Dose 70 MG; Start 01/11/17 at 12:30 Meropenem/Sodium Chloride 50 ml @ 100 mls/hr Q12 IVPB Last administered on 20:36; Admin Dose 100 MLS/HR; Start 01/11/17 at 14:30 Phenylephrine HCl 40 mg/Dextrose 250 ml @ 10 mls/hr TITRATE IV Last administered on 01/12/17 06:18; Admin Dose 7.5 MLS/HR; Start 01/12/17 at 06:00 Potassium Chloride (KCl 40 MEQ/250 ML NS) 250 ml @ 62.5 mls/hr ONCE ONCE IVPB ; Start 01/12/17 at 07:00; Stop 01/12/17 at 10:59 Assessment/Plan Chief Complaint/Hosp Course 1. shock: cardiogenic and probably septic combination 2. CHF: acute on chronic probably due to systolic and diastolic heart failure 3. acute hypoxemic/ hypercapnic resp failure: s/ p intubation now 4. Afib with RVR 5. HX CAD 6/ HX PCI RCA 2009 7. HX HTN: now hypotensive 8. hyper K 9. hx CLL 10. ANEMIA 11. Lactic acidosis 12. dyslipidemia 13./ hx DVT ( treated with XARELTO at home) 14. severe cardiomyopathy now with EF 20% NOW. EF was 50-55% on 01/01/17 REC: cont ICU care and vent support for now will give another dose of dig today and check level in AM titrate off NEOSYNERPHRINE DRIP IF BP remains stable ECHO shows severe LV dysfunction now. will consider ischemic work up once more stable . PULM CONSULT input is greatly appreciated. UNABLE to resume betablocker/ cardizem due to hypotension now. check dig level in AM. diamox now. consider transfusion? will start amiodarone drip for 24 hours. CONT ICU CARE. more than 38 min of critical time was spent in management and treatment of this critically ill patient excluding any procedure. thank you. CHINO MERCEDES MD [facility] Problems: CHINO MERCEDES MD Jan 12, 2017 08:04
--- NOTE | 2017-01-12 08:17 | PN ---
DATE: 01/12/2017 SUBJECTIVE DATA: The patient remains critically ill, on presser support, being weaned down. The patient is on full ventilatory support. No other acute events noted overnight. No hemoptysis, hematemesis, hematochezia. OBJECTIVE DATA: VITAL SIGNS: Blood pressure is 108/58, respirations 16, pulse 114, temperature 98.6. HEENT: Head is normocephalic. NECK: Supple. HEART: Regular rate. LUNGS: Show diminished breath sounds at the base. ABDOMEN: Soft, nontender to palpation. No rebound or guarding. EXTREMITIES: Negative for clubbing, cyanosis. Trace edema. DERMATOLOGIC: Clean. No rashes. MUSCULOSKELETAL: No joint effusion. NEUROLOGIC: No change in exam. MEDICATIONS: Reviewed. LABORATORY AND DIAGNOSTIC DATA: Shows sodium 143, potassium 3.3, chloride 96, BUN 18, creatinine 1.21. White count 8.1, hemoglobin of 7.8, crit of 26.1, platelet count is 177. Blood cultures negative. Chest x-ray on 01/11 shows bilateral pleural effusions, mild interstitial edema, and pulmonary vascular congestion. ASSESSMENT AND PLAN: 1. Shock. Etiology may be multifactorial, septic and cardiogenic. The patient has a 2D echo, showed ejection fraction 25 percent and is decompensated. Additionally, the patient also had a markedly elevated white count and possible pneumonia. The patient has been clinically improving with antibiotic therapy, as well as diuretics. The patient is on presser support, being weaned off. At this point, would continue current treatment plan. We will follow up with Cardiology, Infectious Disease. We will follow up cultures, which have been negative to date. Follow up procalcitonin level. 2. Acute decompensated heart failure, systolic. Patient's ejection fraction is 25 percent. Currently on diuretic, status post Bumex drip with good urinary output. We will continue to monitor. Follow up with Cardiology for diuretic management. 3. Ventilatory-dependent respiratory failure. Etiology is multifactorial secondary to congestive heart failure, pneumonia. Continue current medical management. ABG, chest x-rays reviewed. Follow up with Pulmonary. 4. Nonoliguric acute kidney injury with unknown baseline creatinine. Etiology secondary to septic acute kidney injury, possible acute tubular necrosis from ischemic hypoperfusion. The patient's urinalysis does not show any active sediment. The patient has a protein-creatinine ratio of approximately 800 mg/g of creatinine. At this point, continue current treatment, supportive care. Renally dose all meds. 5. Atrial fibrillation. Currently rate controlled. Continue current medical management. Follow up with Cardiology. 6. Anemia. Monitor H and H levels. 7. Mineral bone disorder. Monitor calcium and phosphorus levels. 8. Hypokalemia. Secondary to acute kidney injury, resolved. 9. Diabetes. Continue current insulin regimen. 10. History of chronic lymphocytic leukemia. I spoke with the patient's family. 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 Per family, patient's chronic lymphocytic leukemia has been stable. 11. History of coronary artery disease . Continue current medical management. 12. Chronic lower extremity deep vein thrombosis. Continue Lovenox. 13. Anemia. Patient had a drop in H and H. Currently on anticoagulation. We will check an iron panel. Check stool for occult blood. Follow up with Hematology. 14. History of pulmonary hypertension. Continue to monitor. Follow up with Pulmonary. 15. Gastrointestinal and deep venous thrombosis prophylaxis. 16. History of asthma. Please note, I spent over 35 minutes of critical care time with this patient. Please note, I did speak with the patient's family updating them on her condition. Dictated By: Timo Mccracken DO /linette/annetta /Document#: [id number]
[2017-01-12] MEDS ORDERED: MAGNESIUM SULFATE 2 GM/50 ML 50 ML IVPB ONE (08:30)
[2017-01-12] MEDS ORDERED: AMIODARONE 150MG/D5W BOLUS 100 ML IV ONE (08:30)
[2017-01-12] MEDS ORDERED: AMIODARONE 900 MG in DEXTROSE 5% 482 ML IV SCH (08:30)
[2017-01-12] MEDS: ENOXAPARIN 80 MG/0.8 ML SYG SC SCH ×2 (08:46→21:01)
[2017-01-12] MEDS: MEROPENEM 500MG/50 ML (PMX) 50 ML IVPB SCH ×2 (08:46→20:55)
[2017-01-12 08:59] LABS: IRON 16 ug/dl (35-150)
[2017-01-12] MEDS ORDERED: ACETAZOLAMIDE 500 MG INJ IV ONE (09:00)
[2017-01-12 09:08] LABS: TOTAL IRON BINDING CAPACITY 211 ug/dl (241-421)
[2017-01-12] MEDS: VANCOMYCIN 1 GM in NS 250 ML IVPB SCH (09:30)
[2017-01-12] MEDS ORDERED: morphine 2 MG INJ IV ONE (11:00)
--- NOTE | 2017-01-12 11:39 | CONS ---
Date/Time of Note Date/Time of Note DATE: 01/12/17 TIME: 11:34 Assessment/Plan Assessment/Plan Chief Complaint/Hosp Course Consult dictated #[id number] Problems: Additional Assessment/Plan Ventilator setting; AC of 14, tidal volume 400, PEEP of 8, 30% FiO2. Amiodarone drip 1 mg/min. Assessment and recommendations; 1. Patient admitted with respiratory failure which is combination of CHF and pneumonia. 2. Severe hypotension with interval resolution. 3. Mild chronic renal insufficiency. 4. Mild anemia and thrombocytopenia. 5. Chronic atrial fibrillation. 6. MRSA isolated from nares. 7. A. fib with RVR patient currently on amiodarone drip with rate well controlled now. Possibly causing some element of cardiac decompensation. Current supportive care. Patient currently is not in a position to be extubated. We will obtain follow-up chest x-ray. Be re-sedated if required. Meanwhile administer morphine 1 mg IV push 1 for throat discomfort. 35 minutes of critical care time was spent evaluating the patient. Consultation Date/Type/Reason Admit Date/Time Jan 10, 2017 at 23:15 Initial Consult Date 01/11/17 Type of Consultation: Pulmonary/critical care 24 HR Interval Summary Free Text/Dictation Patient's condition remains critical. Patient however has improved hemodynamically and is not requiring any further pressor support. Sedation and is completely awake and alert. She was switched over to CPAP mode but currently does not have adequate weaning parameters. General examination; elderly woman, orally intubated, awake and alert. Currently in no distress. Intubated Orally Exam/Review of Systems Vital Signs Vitals Vital Signs Date Time Temp Pulse Resp B/P Pulse Ox O2 Delivery O2 Flow Rate FiO2 01/12/17 11:00 94 16 96/43 94 Mechanical Ventilator 01/12/17 08:00 99.0 01/12/17 05:25 30 Intake and Output 01/11/17 01/11/17 01/12/17 15:00 23:00 07:00 Intake Total 549.884 ml 481.870 ml 225.329 ml Output Total 900 ml 1350 ml 775 ml Balance -350.116 ml -868.130 ml -549.671 ml Exam HEENT exam; supple neck him a positive JVD. No lymphadenopathy. Midline trachea. No thyromegaly. Orally intubated. Is edentulous. Pupils are small bilaterally. No neck masses. Chest examined; diminished but clear breath sounds. S1-S2 audible, no murmurs. Irregular rhythm. Abdomen exam; soft, no organomegaly. Bowel sounds audible. Nontender. Extremity exam; no peripheral edema. FEDERAL JUDGE exam; patient is awake and follows simple commands. Results Result Diagram: 01/12/17 0430 01/12/17 0430 Results 24 hrs Laboratory Tests Test 01/11/17 14:00 01/12/17 04:30 01/12/17 05:00 01/12/17 07:00 Urine Color YELLOW Urine Clarity SLIGHTLY CLOUDY A Urine pH 5.0 Urine Specific [place] 1.010 Urine Ketones TRACE A Urine Nitrite NEGATIVE Urine Bilirubin NEGATIVE Urine Urobilinogen NEGATIVE Urine Leukocyte Esterase NEGATIVE Urine Microscopic RBC 1 Urine Microscopic WBC 5 Urine Bacteria FEW A Urine Hemoglobin NEGATIVE Urine Random Creatinine 27.92 Urine Random Sodium 121 H Urine Glucose NEGATIVE Urine Total Protein NEGATIVE White Blood Count 8.1 # Red Blood Count 2.69 L Hemoglobin 7.8 L Hematocrit 26.1 L Mean Corpuscular Volume 97.0 Mean Corpuscular Hemoglobin 29.0 Mean Corpuscular Hemoglobin Concent 29.9 L Red Cell Distribution Width 15.7 H Platelet Count 177 # Mean Platelet Volume 10.0 Neutrophils % 24.4 L Lymphocytes % 44.0 Monocytes % 25.7 H Eosinophils % 0.2 Basophils % 0.2 Nucleated Red Blood Cells % 0.0 Neutrophils # 2.0 Lymphocytes # 3.6 H Monocytes # 2.1 H Eosinophils # 0.0 Basophils # 0.0 Nucleated Red Blood Cells # 0.0 Prothrombin Time 15.6 H Prothrombin Time Ratio 1.2 INR International Normalized Ratio 1.23 Sodium Level 143 Potassium Level 3.3 L Chloride Level 96 L Carbon Dioxide Level 36 H Anion Gap 14 Blood Urea Nitrogen 18 Creatinine 1.21 H Glucose Level 84 Calcium Level 9.3 Phosphorus Level 3.5 Magnesium Level 1.9 Total Bilirubin 0.3 Direct Bilirubin 0.00 Indirect Bilirubin 0.3 Aspartate Amino Transf (AST/SGOT) 21 Alanine Aminotransferase (ALT/SGPT) 24 Alkaline Phosphatase 73 Creatine Kinase < 20 L Creatine Kinase Index Creatinine Kinase MB (Mass) 0.46 Troponin I 0.040 B-Type Natriuretic Peptide 5340 H Total Protein 5.9 L Albumin 3.7 Globulin 2.20 Albumin/Globulin Ratio 1.68 Digoxin Level 0.9 #L Iron Level 16 L Total Iron Binding Capacity 211 L Percent Iron Saturation 8 L Ferritin 241.0 Blood Gas Specimen Source Blood arterial Arterial Blood Date Drawn 01/12/2017 7:06:00 AM Arterial Blood pH (Temp corrected) 7.468 H Arterial Blood pCO2 (Temp correct) 49.2 H Arterial Blood pO2 (Temp corrected) 83.4 Arterial Blood HCO3 34.8 H Arterial Blood Base Excess 10.0 H Arterial Blood Oxygen Saturation 95.8 Blayne Test ACCEPTAB Arterial Blood Gas Puncture Site Right Radial Arterial Blood Carboxyhemoglobin 0.3 Arterial Blood Methemoglobin 0.3 Blood Gas A-a O2 Differential 72.7 H Oxyhemoglobin Percent 95.2 Total Hemoglobin 8.6 L Blood Gas Temperature 37.0 Blood Gas Respiration Rate 14.0 Blood Gas Actual Respiration Rate 17 Blood Gas Modality VENT - AC FiO2 30.0 Blood Gas Tidal Volume 400.0 Blood Gas Low PEEP Setting 8.0 Blood Gas Notified Whom TM Blood Gas Notified Time 01/12/2017 7:30:00 AM Medications Medications Current Medications Propofol (Diprivan) 100 ml @ 2.045 mls/ hr Q12H IV Last administered on 08:16; Admin Dose 10.227 MLS/HR; Start 01/11/17 at 01:30 Diagnostic Test (Pha) 1 ea 1 ea 02 XX ; Start 01/12/17 at 02:00 Vancomycin HCl (Vancocin) 250 ml @ 125 mls/hr Q24H IVPB Last administered on 09:30; Admin Dose 125 MLS/HR; Start 01/11/17 at 09:00 Enoxaparin Sodium 70 mg 70 mg Q12 SC Last administered on 01/12/17 08:46; Admin Dose 70 MG; Start 01/11/17 at 12:30 Meropenem/Sodium Chloride 50 ml @ 100 mls/hr Q12 IVPB Last administered on 08:46; Admin Dose 100 MLS/HR; Start 01/11/17 at 14:30 Phenylephrine HCl 40 mg/Dextrose 250 ml @ 10 mls/hr TITRATE IV Last administered on 01/12/17 06:18; Admin Dose 7.5 MLS/HR; Start 01/12/17 at 06:00 Amiodarone HCl/ Dextrose (Cordarone Iv/ D5W) 500 ml @ 0 mls/hr Q0M IV Last administered on 01/12/17t 09:13; Admin Dose 33.4 MLS/HR; Start 01/12/17 at 08:30 ; Stop 01/13/17 at 08:29 RADHA CAMACHO Jan 12, 2017 11:39
[2017-01-12] MEDS ORDERED: MUPIROCIN 2% 22 GM OINT TOP SCH (12:00)
--- NOTE | 2017-01-12 12:56 | CONS ---
Date/Time of Note Date/Time of Note DATE: 01/10/17 TIME: 20:56 VK LE Assessment/Plan Assessment/Plan Chief Complaint/Hosp Course CLL- ON TREATMENT RECORD NO AVAILABLE OBTAIN AND REVIEW RECORD TREATMENT - ON HOLD Respiratory failure. Septic shock. Acute decompensated heart failure. Nonoliguric acute kidney injury with unknown baseline creatinine. Etiology secondary to septic acute kidney injury, acute tubular necrosis. Anemia. Monitor H and H levels. Transfuse as needed. Mineral bone disorder. Diabetes. Continue Accu-Cheks and sliding scale. Coronary artery disease. Pulmonary hypertension. Pleural effusions with history of PleurX catheter, currently nonfunctional. Problems: Consultation Date/Type/Reason Admit Date/Time Jan 10, 2017 at 23:15 Date of Consultation: Jan 10, 2017 Type of Consultation: hemeon Reason for Consultation CLL Referring Provider: AUBREE PALMA DO Hx of Present Illness 79-year-old female with past medical history of CAD, chronic lymphocytic leukemia, anemia, hypertension, hypothyroidism, obesity, osteoporosis, pulmonary hypertension, diabetes, paroxysmal AFib, asthma, left lower extremity DVTBrought in by ambulance from home in severe respiratory distress. The patient was placed on BiPAP after she was noted to have an oxygen saturation in the 70s. The patient was recently admitted 3 weeks ago to an outside hospital for similar symptoms. Otherwise history is limited as the patient is in severe respiratory distress and not answering questions. ROS Unable to obtain secondary to severe respiratory distress Medications Home Meds Reported Medications Albuterol Sulfate* (Albuterol Sulfate* Neb) 0.083%-3 Ml Neb, 1 VIAL NEB BID Y for WHEEZING AND SOB, #30 VIAL 01/10/17 Ergocalciferol (Vitamin D2) (VITAMIN D2) 50,000 Unit Capsule, 90586 UNIT PO Q7D , CAP 01/10/17 Sennosides* (Senna Lax*) 8.6 Mg Tablet, 1 TAB PO Q12H Y for CONSTIPATION, TAB 01/10/17 Rosuvastatin Calcium* (Crestor*) 40 Mg Tablet, 40 MG PO DAILY, #30 TAB 01/10/17 Rivaroxaban* (Xarelto*) 20 Mg Tablet, 20 MG PO WITH DINNER, TAB 01/10/17 Prednisone* (Prednisone*) 5 Mg Tab, 5 MG PO DAILY, TAB 01/10/17 Potassium Chloride (Klor-Con) 10 Meq Tablet.sa, 10 MEQ PO DAILY, TAB.SA 01/10/17 Montelukast Sodium* (Montelukast Sodium*) 5 Mg Tab.chew, 5 MG PO QHS, #30 TAB 01/10/17 Midodrine* (Midodrine*) 5 Mg Tablet, 5 MG PO BID, TAB 01/10/17 Metoprolol Tartrate* (Lopressor*) 50 Mg Tab, 50 MG PO BID, #60 TAB 01/10/17 Lidocaine (Lidocaine) 1 Each Adh..patch, 1 EACH TP DAILY 01/10/17 Insulin Glargine* (Lantus*) 100 Unit/Ml Soln, 40 UNIT SC QAM, #1 VIAL 01/10/17 Insulin Aspart* (Novolog Insulin Pen*) 100 Unit/Ml Soln, 12 UNIT SC WITH MEALS, EA 01/10/17 Esomeprazole Mag Trihydrate (Nexium) 40 Mg Capsule.dr, 40 MG PO DAILY, #30 CAP 01/10/17 Docusate Sodium* (Docusate Sodium*) 100 Mg Capsule, 100 MG PO BID, #60 CAP 01/10/17 Diltiazem Hcl* (Diltiazem XT) 180 Mg Capsule.er, 180 MG PO DAILY, #30 CAP 01/10/17 Acetaminophen* (Acetaminophen*) 650 Mg Tablet, 650 MG PO Q4H Y for PAIN AND OR ELEVATED TEMP, #30 TAB 01/10/17 Furosemide* (Furosemide*) 40 Mg Tablet, 40 MG PO BID, TAB 01/10/17 Amiodarone Hcl* (Amiodarone Hcl*) 100 Mg Tablet, 100 MG PO BID, #30 TAB 01/10/17 Discontinued Reported Medications Montelukast Sodium* (Montelukast Sodium*) 10 Mg Tablet, 10 MG PO HS, TAB 10/25/14 Potassium Chloride* (K-Dur*) 10 Meq Tab.prt.sr, 10 MEQ PO DAILY, TAB 10/25/14 Furosemide* (Furosemide*) 40 Mg Tablet, 40 MG PO DAILY, TAB 10/25/14 Albuterol Sulfate* (Proair HFA*) 8.5 Gm Hfa.aer.ad, 2 PUFF INH Q4H Y for WHEEZING AND SOB, INH 10/25/14 Amlodipine-Olmesartan (Cece) 5-40 Mg Tablet, 1 TAB PO DAILY, TAB 10/25/14 Rosuvastatin Calcium* (Crestor*) 40 Mg Tablet, 40 MG PO HS, TAB 10/25/14 Metformin Hcl* (Metformin Hcl*) 500 Mg Tablet, 500 MG PO WITH MEALS, TAB 10/25/14 Diclofenac Sodium* (Voltaren* Gel) 1% -100 Gm Gel, 2 GM TOP QID, TUB 10/25/14 Bisoprolol-Hydrochlorothiazide (Bisoprolol-Hydrochlorothiazide) 5-6.25 Mg Tablet , 1 TAB PO DAILY, TAB 10/25/14 Ibuprofen* (Ibuprofen*) 600 Mg Tablet, 600 MG PO Q8, TAB 10/25/14 Donepezil* (Donepezil*) 10 Mg Tablet, 10 MG PO DAILY, TAB 10/25/14 Insulin Detemir* (Levemir*) 100 U/Ml Vial, 30 UNIT SC DAILY, VIAL 10/25/14 Discontinued Scripts Nitroglycerin* (Nitrostat*) 25 Tab Subl, 1 TAB SL Q5M Y for CHEST PAIN, #30 Prov:YOVANI CUETO 10/28/14 Metoprolol Tartrate* (Lopressor*) 25 Mg Tab, 25 MG PO BID for 30 Days, TAB Prov:YOVANI CUETO 10/28/14 Apixaban* (Eliquis*) 5 Mg Tablet, 10 MG PO BID for 60 Days, TAB 1. Take eliquis 10 mg by mouth twice a day for 7 days 2. Then take eliquis 5mg by mouth twice a day Prov:YOVANI CUETO 10/28/14 [Montelukast Sodium] 10 MG TAB No Conflict Check, 10 MG PO HS for 30 Days, TAB Prov:YOVANI CUETO 10/28/14 Ferrous Sulfate* (Ferrous Sulfate*) 325 Mg Tabec, 325 MG PO TID for 30 Days Prov:YOVANI CUETO 10/28/14 Digoxin* (Digitek*) 0.125 Mg Tab, 0.125 MG PO DAILY@13 for 30 Days Prov:YOVANI CUETO 10/28/14 Aspirin* (Aspirin* EC) 81 Mg Tabec, 81 MG PO DAILY for 30 Days Prov:YOVANI CUETO 10/28/14 Allergies Allergies: Coded Allergies: ceftriaxone (Unverified Allergy, Unknown, 01/10/17) PMhx/Soc CLL History of Surgery: Yes (port-a-cath placement) Anesthesia Reaction: No Hx Neurological Disorder: No Hx Respiratory Disorders: No Hx Cardiac Disorders: Yes (HTN, paroxysmal AF, anemia, CHF) Hx Psychiatric Problems: No Hx Miscellaneous Medical Probl: No Hx Alcohol Use: No Hx Substance Use: No Hx Tobacco Use: No Past Surgical History Past Surgical Hx: noncontributory Social History Smoking Status: Never smoker Exam/Review of Systems Vital Signs Vitals Vital Signs Date Time Temp Pulse Resp B/P Pulse Ox O2 Delivery O2 Flow Rate FiO2 01/10/17 22:26 98.5 109 106/73 100 Mechanical Ventilator 01/10/17 21:04 123 20 100 100 01/10/17 20:25 98.7 140 102/89 100 Mechanical Ventilator 01/10/17 19:35 143 20 100 100 01/10/17 18:04 139 20 98 100 01/10/17 18:02 137 11 119/59 Mechanical Ventilator 01/10/17 17:40 140 88/65 98 Mechanical Ventilator 01/10/17 17:33 160 20 115/56 100 Mechanical Ventilator 01/10/17 17:15 163 17 103/81 100 Mechanical Ventilator 01/10/17 16:50 150 20 105/76 100 Mechanical Ventilator 01/10/17 16:50 154 20 100 100 01/10/17 15:45 98.2 137 18 141/93 96 01/10/17 15:45 Bag Valve Mask 01/10/17 15:38 98.4 138 29 141/93 93 BIPAP 01/10/17 15:20 130 89 100 Exam Const: In severe respiratory distress, sitting upright, on BiPAP Head: Atraumatic Eyes: Normal Conjunctiva ENT: Normal External Ears, Nose and Mouth. Neck: Full range of motion..~ No meningismus.Positive JVD Resp: Significantly tachypneic, retractions noted,Poor air movement bilaterally with diffuse rails, no wheezing Cardio: Tachycardic with irregularrhythm, no murmurs Abd: Soft, non tender, non distended. Right upper quadrant with catheter, dressing clean dry and intact.Normal bowel sounds Skin: No petechiae or rashes Back: No midline or flank tenderness Ext: No cyanosis, Bilateral lower extremity pitting edema, lower extremities symmetric Neur: Awake and alert, Able to tell me her name but not answering other questions to the respiratory distress, PERRLA, moving all extremities, normal tone Results 01/10/17 1525 01/10/17 1525 Results 24 hrs Laboratory Tests Test 01/10/17 15:12 01/10/17 15:25 01/10/17 18:10 01/10/17 20:05 Blood Gas Specimen Source Blood arterial Blood arterial Arterial Blood Date Drawn 01/10/2017 3:37:55 PM 01/10/2017 6:17:36 PM Arterial Blood pH (Temp corrected) 7.186 7.368 Arterial Blood pCO2 (Temp correct) 87.5mmhg 48.3mmhg Arterial Blood pO2 (Temp corrected) 72.1mmHG 79.3mmHG Arterial Blood HCO3 32.4mmol/L 27.2mmol/L Arterial Blood Base Excess 1.9mmol/L 1.4mmol/L Arterial Blood Oxygen Saturation 89.4mmHG 94.8mmHG Blayne Test ACCEPTAB ACCEPTAB Arterial Blood Gas Puncture Site Right Radial Right Radial Arterial Blood Carboxyhemoglobin 0.3% 0.3% Arterial Blood Methemoglobin 0.3% 0.3% Blood Gas A-a O2 Differential 553.4mmHg 585.4mmHg Oxyhemoglobin Percent 88.9% 94.2% Total Hemoglobin 12.0g/dl 11.3g/dl Blood Gas Temperature 37.0C 37.0C Blood Gas Respiration Rate 18.0 20.0 Blood Gas Actual Respiration Rate 51 20 Blood Gas Modality MASK - BIPAP VENT - AC FiO2 100.0% 100.0% Blood Gas Pressure Support 12 Blood Gas IPAP/EPAP Ratio 20/8 Blood Gas Critical Value Read Back DR. LEANDRO REEVES Blood Gas Notified Whom Olya Dobson Blood Gas Notified Time 01/10/2017 3:44:39 PM 01/10/2017 6:25:11 PM White Blood Count 30.810^3/ul Red Blood Count 3.5510^6/ul Hemoglobin 10.7g/dl Hematocrit 36.0% Mean Corpuscular Volume 101.4fl Mean Corpuscular Hemoglobin 30.1pg Mean Corpuscular Hemoglobin Concent 29.7g/dl Red Cell Distribution Width 15.3% Platelet Count 05231^3/UL Mean Platelet Volume 10.0fl Neutrophils % % Segmented Neutrophils % (Manual) 15% Lymphocytes % % Lymphocytes % (Manual) 76% Monocytes % % Monocytes % (Manual) 9% Eosinophils % % Basophils % % Nucleated Red Blood Cells % 0.0/100WBC Neutrophils # 10^3/ul Absolute Lymphocytes (Manual) 23.410^3/ul Lymphocytes # 10^3/ul Monocytes # 10^3/ul Absolute Monocytes (Manual) 2.710^3/ul Eosinophils # 10^3/ul Basophils # 10^3/ul Nucleated Red Blood Cells # 10^3/ul Platelet Estimate NORMAL Platelet Morphology Comment @See below Polychromasia 1+ Anisocytosis 1+ Ovalocytes 1+ Prothrombin Time 19.9Sec Prothrombin Time Ratio 1.6 INR International Normalized Ratio 1.68 Activated Partial Thromboplast Time 33.6Sec Sodium Level 141mmol/L Potassium Level 5.3mmol/L Chloride Level 97mmol/L Carbon Dioxide Level 31mmol/L Anion Gap 18 Blood Urea Nitrogen 16mg/dl Creatinine 1.28mg/dl Glucose Level 341mg/dl Lactic Acid Level 4.9mmol/L 2.2mmol/L Calcium Level 8.9mg/dl Total Bilirubin 0.4mg/dl Direct Bilirubin 0.00mg/dl Indirect Bilirubin 0.4mg/dl Aspartate Amino Transf (AST/SGOT) 34IU/L Alanine Aminotransferase (ALT/SGPT) 29IU/L Alkaline Phosphatase 118IU/L Troponin I 0.014ng/ml B-Type Natriuretic Peptide 7020PG/ML Total Protein 7.0g/dl Albumin 4.3g/dl Globulin 2.70g/dl Albumin/Globulin Ratio 1.59 Blood Gas Tidal Volume 400.0mL Blood Gas Low PEEP Setting 8.0cmH2O Test 01/10/17 22:10 Lactic Acid Level 2.0mmol/L Current Medications Medications (Trade) Dose Ordered Sig/Carlos Route PRN Reason Start Time Stop Time Status Last Admin Dose Admin Albuterol (Proventil 0.5% (Neb)) 10 mg ONCE STAT INH 01/10/17 15:12 01/10/17 15:14 DC 01/10/17 15:23 Nitroglycerin 1 tab 1 tab Q5M UP TO 3 DOSES PRN SL CHEST PAIN 01/10/17 15:30 01/10/17 15:30 Vancomycin HCl 250 ml @ 125 mls/hr ONCE STAT IVPB 01/10/17 16:06 01/10/17 18:05 DC 01/10/17 16:52 Cefepime HCl 50 ml @ 100 mls/hr ONCE STAT IVPB 01/10/17 16:06 01/10/17 16:35 DC 01/10/17 16:50 Propofol (Diprivan) 100 ml @ 0 mls/hr TITRATE ONCE IV 01/10/17 16:30 01/10/17 16:31 DC 01/10/17 17:18 Furosemide (Lasix) 80 mg ONCE ONCE IV 01/10/17 16:30 01/10/17 16:31 DC 01/10/17 16:50 Diltiazem HCl (Cardizem Iv) 10 mg ONCE ONCE IV 01/10/17 16:30 01/10/17 16:31 DC 01/10/17 16:50 Lidocaine (Xylocaine 1% (Mpf)) 5 ml ONCE ONCE SC 01/10/17 16:30 01/10/17 16:31 DC Diltiazem HCl (Cardizem Iv) 10 mg ONCE ONCE IV 01/10/17 17:30 01/10/17 17:31 DC 01/10/17 17:13 Diltiazem HCl 20 mg 20 mg ONCE ONCE IV 01/10/17 17:30 01/10/17 17:31 DC 01/10/17 17:33 Sodium Chloride (NS) 500 ml @ 500 mls/hr Q1H STAT IV 01/10/17 18:03 01/10/17 19:02 DC Metoprolol Tartrate 5 mg 5 mg ONCE ONCE IV 01/10/17 18:30 01/10/17 18:31 DC Amiodarone HCl 100 ml @ 600 mls/hr ONCE ONCE IV 01/10/17 19:00 01/10/17 19:09 DC Amiodarone HCl/ Dextrose (Cordarone Iv/ D5W) 500 ml @ 0 mls/hr Q0M IV 01/10/17 19:00 01/11/17 18:59 Midazolam HCl 2 mg 2 mg ONCE ONCE IV 01/10/17 19:00 01/10/17 19:01 DC 01/10/17 20:07 Midazolam HCl 0 ml @ STK-MED ONCE .ROUTE 01/10/17 18:43 01/10/17 18:44 DC Phenylephrine HCl (Baudilio-Syneph) 250 ml @ ud STK-MED ONCE .ROUTE 01/10/17 19:31 01/10/17 19:32 DC Digoxin (Digoxin) 500 mcg STK-MED ONCE IV 01/10/17 19:31 01/10/17 19:32 DC Digoxin 250 mcg 250 mcg ONCE ONCE IV 01/10/17 20:00 01/10/17 20:01 DC 01/10/17 19:49 Phenylephrine HCl 250 ml @ 75 mls/hr TITRATE IV 01/10/17 20:00 01/10/17 22:00 DC 01/10/17 20:17 Phenylephrine HCl/ Dextrose (Baudilio-Syneph/D5W) 250 ml @ 0 mls/hr TITRATE IV 01/10/17 20:30 Digoxin (Digoxin) 250 mcg Q4H IV 01/11/17 00:00 01/11/17 08:01 Enoxaparin Sodium (Lovenox) 70 mg ONCE SC 01/10/17 23:00 01/10/17 23:03 Procedures/MDM EKG: Rate/Rhythm: Atrial fibrillation with rapid ventricular response at 126 bpm QRS, ST, T-waves: Rightward axis, incomplete left bundle branch block Impression: Atrial fibrillation with RVR, no ST elevation ID EKG: Rate/Rhythm: A. fib with RVR at 149 bpm QRS, ST, T-waves: Incomplete left bundle branch block Impression: Atrial fibrillation with RVR Chest x-ray #1: IMPRESSION: Mild cardiomegaly. Moderate pulmonary vascular congestion. Extensive bilateral infiltrates. Bilateral pleural effusions. Right-sided Pleurx catheter in place. Slightly more focal right lower lobe consolidation versus mass. Calcified aorta consistent with atherosclerotic disease. Follow-up is recommended. .Mahamed Rodriguez MD, Date Time Electronically viewed and signed by .Mahamed Rodriguez MD, on 01/10/2017 15: 41 Endotracheal Intubation by ia: Pre assessment performed. See preceding note for details. Pre-oxygenation performed with 100% oxygen RSI: Performed w/o complication or hypoxic events. Medications as ordered. Blade: Mac 4 ET Tube: 7.5 cm Depth: 21 cm at the lip Intubation confirmed by colorimetric CO2, equal breath sounds, quiet over the stomach. Chest X-ray 1V Interpreted by me: 1.2 cm above the jaya ET tube. Normal soft tissue, No pneumothorax. Result Diagram: 01/12/17 0430 01/12/17 0430 Results 24 hrs Laboratory Tests Test 01/11/17 14:00 01/12/17 04:30 01/12/17 05:00 01/12/17 07:00 Urine Color YELLOW Urine Clarity SLIGHTLY CLOUDY A Urine pH 5.0 Urine Specific [place] 1.010 Urine Ketones TRACE A Urine Nitrite NEGATIVE Urine Bilirubin NEGATIVE Urine Urobilinogen NEGATIVE Urine Leukocyte Esterase NEGATIVE Urine Microscopic RBC 1 Urine Microscopic WBC 5 Urine Bacteria FEW A Urine Hemoglobin NEGATIVE Urine Random Creatinine 27.92 Urine Random Sodium 121 H Urine Glucose NEGATIVE Urine Total Protein NEGATIVE White Blood Count 8.1 # Red Blood Count 2.69 L Hemoglobin 7.8 L Hematocrit 26.1 L Mean Corpuscular Volume 97.0 Mean Corpuscular Hemoglobin 29.0 Mean Corpuscular Hemoglobin Concent 29.9 L Red Cell Distribution Width 15.7 H Platelet Count 177 # Mean Platelet Volume 10.0 Neutrophils % 24.4 L Lymphocytes % 44.0 Monocytes % 25.7 H Eosinophils % 0.2 Basophils % 0.2 Nucleated Red Blood Cells % 0.0 Neutrophils # 2.0 Lymphocytes # 3.6 H Monocytes # 2.1 H Eosinophils # 0.0 Basophils # 0.0 Nucleated Red Blood Cells # 0.0 Prothrombin Time 15.6 H Prothrombin Time Ratio 1.2 INR International Normalized Ratio 1.23 Sodium Level 143 Potassium Level 3.3 L Chloride Level 96 L Carbon Dioxide Level 36 H Anion Gap 14 Blood Urea Nitrogen 18 Creatinine 1.21 H Glucose Level 84 Calcium Level 9.3 Phosphorus Level 3.5 Magnesium Level 1.9 Total Bilirubin 0.3 Direct Bilirubin 0.00 Indirect Bilirubin 0.3 Aspartate Amino Transf (AST/SGOT) 21 Alanine Aminotransferase (ALT/SGPT) 24 Alkaline Phosphatase 73 Creatine Kinase < 20 L Creatine Kinase Index Creatinine Kinase MB (Mass) 0.46 Troponin I 0.040 B-Type Natriuretic Peptide 5340 H Total Protein 5.9 L Albumin 3.7 Globulin 2.20 Albumin/Globulin Ratio 1.68 Digoxin Level 0.9 #L Iron Level 16 L Total Iron Binding Capacity 211 L Percent Iron Saturation 8 L Ferritin 241.0 Blood Gas Specimen Source Blood arterial Arterial Blood Date Drawn 01/12/2017 7:06:00 AM Arterial Blood pH (Temp corrected) 7.468 H Arterial Blood pCO2 (Temp correct) 49.2 H Arterial Blood pO2 (Temp corrected) 83.4 Arterial Blood HCO3 34.8 H Arterial Blood Base Excess 10.0 H Arterial Blood Oxygen Saturation 95.8 Blayne Test ACCEPTAB Arterial Blood Gas Puncture Site Right Radial Arterial Blood Carboxyhemoglobin 0.3 Arterial Blood Methemoglobin 0.3 Blood Gas A-a O2 Differential 72.7 H Oxyhemoglobin Percent 95.2 Total Hemoglobin 8.6 L Blood Gas Temperature 37.0 Blood Gas Respiration Rate 14.0 Blood Gas Actual Respiration Rate 17 Blood Gas Modality VENT - AC FiO2 30.0 Blood Gas Tidal Volume 400.0 Blood Gas Low PEEP Setting 8.0 Blood Gas Notified Whom TM Blood Gas Notified Time 01/12/2017 7:30:00 AM Medications Medications Current Medications Propofol (Diprivan) 100 ml @ 2.045 mls/ hr Q12H IV Last administered on 08:16; Admin Dose 10.227 MLS/HR; Start 01/11/17 at 01:30 Diagnostic Test (Pha) 1 ea 1 ea 02 XX ; Start 01/12/17 at 02:00 Vancomycin HCl (Vancocin) 250 ml @ 125 mls/hr Q24H IVPB Last administered on 09:30; Admin Dose 125 MLS/HR; Start 01/11/17 at 09:00 Enoxaparin Sodium 70 mg 70 mg Q12 SC Last administered on 01/12/17 08:46; Admin Dose 70 MG; Start 01/11/17 at 12:30 Meropenem/Sodium Chloride 50 ml @ 100 mls/hr Q12 IVPB Last administered on 08:46; Admin Dose 100 MLS/HR; Start 01/11/17 at 14:30 Phenylephrine HCl 40 mg/Dextrose 250 ml @ 10 mls/hr TITRATE IV Last administered on 01/12/17 06:18; Admin Dose 7.5 MLS/HR; Start 01/12/17 at 06:00 Amiodarone HCl/ Dextrose (Cordarone Iv/ D5W) 500 ml @ 0 mls/hr Q0M IV Last administered on 01/12/17t 09:13; Admin Dose 33.4 MLS/HR; Start 01/12/17 at 08:30 ; Stop 01/13/17 at 08:29 Mupirocin (Bactroban) 1 applic BID TOP ; Start 01/12/17 at 13:00 SE RAY MD Jan 12, 2017 12:56
--- NOTE | 2017-01-12 13:39 | PN ---
DATE: 01/12/2017 SUBJECTIVE DATA: Patient is awake, comfortable, on vent. No fevers. Temperature 99, pulse 94, respirations 16, blood pressure 96/43, saturation 94 percent on vent. LABORATORY AND DIAGNOSTIC DATA: WBC 8.1, H and H 7.8 and 26.1, platelets 177, BUN 18, creatinine 1.21. MICROBIOLOGY: Blood cultures remain negative. Nares swab growing MRSA. Sputum culture pending. Urine culture pending. ANTIMICROBIALS: The patient is on vancomycin and meropenem. INDWELLINGS: Endotracheal tube, NG tube, Sifuentes catheter, left subclavian triple lumen catheter. OBJECTIVE DATA: GENERAL: Obese, well-developed, elderly woman, who is awake, comfortable, on vent. HEENT: Head atraumatic, normocephalic. Sclerae anicteric. Buccal mucosa dry. NECK: Supple. CHEST: Rise symmetrical. Breath sounds diminished at the bases. HEART: S1, S2. ABDOMEN: Soft, bowel sounds present. EXTREMITIES: Without cyanosis. ASSESSMENT: 1. Severe sepsis with shock, off pressors since this morning. 2. Pneumonia, possibly aspiration type. 3. Congestive heart failure exacerbation. 4. Acute respiratory failure. 5. Diabetes. 6. Atrial fibrillation, status post rapid ventricular response. 7. History of lower extremity deep vein thrombosis. 8. Chronic lymphocytic leukemia. PLAN: The patient remains stable off pressors. She is on appropriate antibiotics. Will add Bactroban to nares. I await for final cultures. Follow recommendations of consultants. Dictated By: Elvin Owusu NP /linette/randee /Document#: [id number]
--- NOTE | 2017-01-12 13:45 | RADRPT ---
PROCEDURE: Chest radiograph CLINICAL INDICATION: Intubated. COMPARISON: Radiograph from 10/25/2016. TECHNIQUE: Single frontal chest radiograph. FINDINGS: The endotracheal tube terminates about 6.5 cm above the jaya. The enteric to course, diaphragmatic field of view. Left internal jugular central venous catheter terminates in superior vena cava. Right chest tube terminates lung base. There of the mid lung. Linear opacity right mid lung may represent small loculated fluid and/or atelectasis. Small bilateral pleural effusions. Cardiomegaly. Aortic calcifications. IMPRESSION: 1. Small bilateral pleural effusions with probably a small fluid in the right minor fissure. 2. All support lines and tubes in appropriate position. RPTAT: [facility] Physician Melody Date Time Electronically viewed and signed by Physician Melody on 01/12/2017 13:44 LG/
[2017-01-12] MEDS: MUPIROCIN 2% 22 GM OINT TOP SCH ×2 (13:53→20:55)
[2017-01-12 16:08] LABS: HEMATOCRIT 27.8 % (37.0-47.0); HEMOGLOBIN 8.2 g/dl (12.0-16.0)
[2017-01-12 16:28] LABS: URIC ACID 4.8 mg/dl (3.1-7.9)
[2017-01-12 17:01] LABS: THYROID STIMULATING HORMONE 2.92 MIU/L (0.465-4.680)
[2017-01-12 17:05] LABS: IRON 14 ug/dl (35-150)
[2017-01-12 17:15] LABS: TOTAL IRON BINDING CAPACITY 207 ug/dl (241-421)
[2017-01-12] MEDS: morphine 2 MG INJ IV PRN (19:07)
--- NOTE | 2017-01-12 22:03 | RADRPT ---
PROCEDURE: XR Chest. CLINICAL INDICATION: Endotracheal tube adjustment TECHNIQUE: AP Portable chest. COMPARISON: Chest x-ray [id number] FINDINGS: The soft tissues and bones are remarkable for an endotracheal tube approximately 3 cm above the julio na. An enteric tube is noted in the stomach. A left central venous catheter is present tip in the mackey perior vena cava. A right basilar chest tube is present with the tip directed towards the right apex . The visualized lungs demonstrate bibasilar discoid atelectasis and mild cardiogenic pulmonary venous hypertension. Interval decrease in the small right pleural effusion and residual small left pleural effusion is noted. The mediastinum and heart are remarkable for a vascular calcifications of the th oracic aorta and mild cardiomegaly. No pneumothorax is present. IMPRESSION: 1. Tubes and lines as indicated above without pneumothorax. 2. Small bilateral residual pleural effusions and mild cardiogenic pulmonary venous hypertension 3. Mild atherosclerotic vascular disease and cardiomegaly RPTAT: HDC .Shantell Mckinnon MD, MD Date Time Electronically viewed and signed by .Shantell Mckinnon MD, on 01/12/2017 22:03 .C/
[2017-01-13] VITALS (46 sets, daily range): BP systolic 91–153; BP diastolic 40–107; PULSE 80–144; RESP 8–47
[2017-01-13] MEDS: ACCU-CHEK XX SCH (02:00)
[2017-01-13 05:29] LABS: ABNORMAL IP MESSAGE 1; BASOPHILS % 0.3 % (0.0-2.0); EOSINOPHILS % 0.5 % (0.0-7.0); HEMATOCRIT 28.2 % (37.0-47.0); HEMOGLOBIN 8.5 g/dl (12.0-16.0); LYMPHOCYTES # 2.3 10^3/ul (0.8-2.9); LYMPHOCYTES % 40.1 % (15.0-51.0); MEAN CORPUSCULAR HEMOGLOBIN 29.6 pg (29.0-33.0); MEAN CORPUSCULAR HGB CONC 30.1 g/dl (32.0-37.0); MEAN CORPUSCULAR VOLUME 98.3 fl (82.0-101.0); MEAN PLATELET VOLUME 9.9 fl (7.4-10.4); MONOCYTE # 1.5 10^3/ul (0.3-0.9); MONOCYTES % 26.6 % (0.0-11.0); NEUTROPHIL # 1.6 10^3/ul (1.6-7.5); PLATELET COUNT 178 10^3/UL (140-415); RED BLOOD COUNT 2.87 10^6/ul (4.20-5.40); RED CELL DISTRIBUTION WIDTH 15.5 % (11.5-14.5); WHITE BLOOD COUNT 5.8 10^3/ul (4.8-10.8)
[2017-01-13 06:03] LABS: CREATININE 1.27 mg/dl (0.44-1.00); MAGNESIUM 2.4 mg/dl (1.7-2.5); PHOSPHORUS 3.5 mg/dl (2.5-4.9); POTASSIUM 3.9 mmol/L (3.5-5.1)
[2017-01-13 06:27] LABS: POSITIVE DIFF @See below
[2017-01-13] MEDS ORDERED: GLUCOSE GEL 15 GRAM TUBE PO PRN ×2 (07:00)
[2017-01-13] MEDS ORDERED: DEXTROSE 50% 50 ML SYRINGE IV PRN ×2 (07:00)
[2017-01-13] MEDS ORDERED: GLUCOSE GEL 15 GRAM TUBE BUCCAL PRN (07:00)
[2017-01-13] MEDS ORDERED: GLUCAGON 1 MG INJ IM PRN (07:00)
[2017-01-13 07:40] LABS: ALBUMIN 3.4 g/dl (3.3-4.9); BILIRUBIN,INDIRECT 0.2 mg/dl (0-1.1); BILIRUBIN,TOTAL 0.2 mg/dl (0.2-1.3); TOTAL PROTEIN 5.3 g/dl (6.1-8.1)
--- NOTE | 2017-01-13 07:42 | RADRPT ---
AMENDMENT: 01/14/2017 12:20:29 PM Jason Chacko MD Right-sided chest tube is stable. No pneumothorax is seen. PROCEDURE: XR Chest 1 view. CLINICAL INDICATION: Shortness of breath TECHNIQUE: AP views of the chest was obtained. COMPARISON: Yesterday FINDINGS: The heart is large. Calcified atherosclerosis is noted in the aorta. Endotracheal and nasogastric t ubes are stable and appear in grossly appropriate location. Left-sided central line is unchanged. Sc attered atelectasis is seen in the bilateral lower lungs and may be combined with small pleural effu sions. Thickening of the right minor fissure is stable. The osseous structures are unchanged. IMPRESSION: Cardiomegaly with calcified atherosclerosis in the aorta. Stable scattered atelectasis in the bilateral lower lungs, combined with small pleural effusions. Stable thickening of the right minor fissure that may reflect focal pleural effusion in the fissure. RPTAT: AA .Jason Chacko MD, Date Time Electronically viewed and signed by .Jason Chacko MD, on 01/14/2017 12:21 .P/
--- NOTE | 2017-01-13 07:43 | CONS ---
Date/Time of Note Date/Time of Note DATE: 01/13/17 TIME: 07:39 Consult Date/Type/Reason Admit Date/Time Jan 10, 2017 at 23:15 Initial Consult Date 01/11/17 Type of Consultation: CARDIOLOGY Subjective CARDIOLOGY/ critical care follow up note: S: D/W staff and rhythm was reviewed. pt remains in afib. HR has been better controlled she is off of neosynerphrine drip now. still on vent in ICU. pt is nonverbal. her old records were extensively reviewed pt's EF was normal at 50-55% on 01/01/17 CV checked today about 7 O: gen: intubated on vent HEENT: Pupils are equal NECK: + JVD CV: irregularly irregular. systolic murmur Chest: s/p pelurodex right side GI: soft NT ND. no rebound. no guarding ext: + trace LE edema neuro:Opens her eyes and respond appropriately Derm: multiple echymosis psych; calm now ECG reviewed: afib RVR. ant infarct. CXR reviewed ECHO 01/11/17reviewed personally: 1. Normal left ventricular cavity size. Normal left ventricular wall thickness. Severe left ventricular systolic dysfunction. Ejection fraction is visually estimated at 25 %. Multiple segmental wall motion abnormalities. 2. There is mild enlargement of left atrium. 3. Mild mitral leaflet calcification. Mild mitral annular calcification. Mild mitral valve regurgitation. 4. Aortic sclerosis without stenosis. Trace aortic valve regurgitation. 5. Normal appearance of the tricuspid valve. Estimated peak PA systolic pressure 53 mmHg. There is mild tricuspid regurgitation. 6. Inferior vena cava without respiratory collapse, however, patient on ventilator. ECHO 01/01/17: per review of old charts. EF 50-55%. LAE. MOD/ SEVERE MR. Objective Vital Signs Date Time Temp Pulse Resp B/P Pulse Ox O2 Delivery O2 Flow Rate FiO2 01/13/17 07:00 40 01/13/17 06:30 105 14 126/104 100 Mechanical Ventilator 01/13/17 06:00 98.8 Intake and Output 01/12/17 01/12/17 01/13/17 15:00 23:00 07:00 Intake Total 912.727 ml 316.68 ml 263.28 ml Output Total 520 ml 380 ml 165 ml Balance 392.727 ml -63.32 ml 98.28 ml Results/Medications Result Diagram: 01/13/17 0400 01/13/17 0420 Results 24 hrs Laboratory Tests Test 01/12/17 15:46 01/12/17 21:54 01/13/17 04:00 01/13/17 04:20 Hemoglobin 8.2 L 8.5 L Hematocrit 27.8 L 28.2 L Erythrocyte Sedimentation Rate 77 H Absolute Reticulocyte Count 0.086 Percent Reticulocyte Count 3.0 H Uric Acid 4.8 Iron Level 14 L Total Iron Binding Capacity 207 L Percent Iron Saturation 7 L Ferritin 243.0 Lactate Dehydrogenase 603 Vitamin B12 Level 583 Thyroid Stimulating Hormone (TSH) 2.920 Bedside Glucose 118 White Blood Count 5.8 # Red Blood Count 2.87 L Mean Corpuscular Volume 98.3 Mean Corpuscular Hemoglobin 29.6 Mean Corpuscular Hemoglobin Concent 30.1 L Red Cell Distribution Width 15.5 H Platelet Count 178 Mean Platelet Volume 9.9 Neutrophils % 27.0 L Lymphocytes % 40.1 Monocytes % 26.6 H Eosinophils % 0.5 Basophils % 0.3 Nucleated Red Blood Cells % 0.0 Neutrophils # 1.6 Lymphocytes # 2.3 Monocytes # 1.5 H Eosinophils # 0.0 Basophils # 0.0 Nucleated Red Blood Cells # 0.0 Digoxin Level 1.3 Sodium Level 142 Potassium Level 3.9 Chloride Level 101 Carbon Dioxide Level 32 H Anion Gap 13 Blood Urea Nitrogen 18 Creatinine 1.27 H Glucose Level 121 Calcium Level 9.0 Phosphorus Level 3.5 Magnesium Level 2.4 Medications Current Medications Propofol 100 ml @ 2.045 mls/ hr Q12H IV Last administered on 01/12/17 08:16; Admin Dose 10.227 MLS/HR; Start 01/11/17 at 01:30 Vancomycin HCl (Vancocin) 250 ml @ 125 mls/hr Q24H IVPB Last administered on 09:30; Admin Dose 125 MLS/HR; Start 01/11/17 at 09:00 Enoxaparin Sodium 70 mg 70 mg Q12 SC Last administered on 01/12/17 21:01; Admin Dose 70 MG; Start 01/11/17 at 12:30 Meropenem/Sodium Chloride 50 ml @ 100 mls/hr Q12 IVPB Last administered on 20:55; Admin Dose 100 MLS/HR; Start 01/11/17 at 14:30 Phenylephrine HCl 40 mg/Dextrose 250 ml @ 10 mls/hr TITRATE IV Last administered on 01/12/17 06:18; Admin Dose 7.5 MLS/HR; Start 01/12/17 at 06:00 Amiodarone HCl/ Dextrose (Cordarone Iv/ D5W) 500 ml @ 0 mls/hr Q0M IV Last administered on 01/12/17 09:13; Admin Dose 33.4 MLS/HR; Start 01/12/17 at 08:30 ; Stop 01/13/17 at 08:29 Mupirocin (Bactroban) 1 applic BID TOP Last administered on 01/12/17 20:55; Admin Dose 1 APPLIC; Start 01/12/17 at 13:00 Miscellaneous Information (*Rx Drug Level Order Reminder*) VANCO TROUGH @ 0, 800 ON... ONCE ONCE XX Last administered on 01/13/17 07:08; Admin Dose 1 EA; Start 01/13/17 at 08:00; Stop 01/13/17 at 08:01 Morphine Sulfate (morphine) 1 mg Q4H PRN IV PAIN Last administered on 19:07; Admin Dose 1 MG; Start 01/12/17 at 19:00 Diagnostic Test (Pha) (Accu-Chek) 1 ea 02 XX ; Start 01/14/17 at 02:00 Insulin Aspart (Novolog Insulin Pen) NOVOLOG *MILD* ALGORI... Q4 SC ; Start at 09:00 Miscellaneous Information 1 ea NOTE XX ; Start 01/13/17 at 07:00 Glucose (Glutose) 15 gm Q15M PRN PO DECREASED GLUCOSE; Start 01/13/17 at 07:00 Glucose (Glutose) 22.5 gm Q15M PRN PO DECREASED GLUCOSE; Start 01/13/17 at 07: 00 Dextrose (D50w Syringe) 25 ml Q15M PRN IV DECREASED GLUCOSE; Start 01/13/17 at 07:00 Dextrose (D50w Syringe) 50 ml Q15M PRN IV DECREASED GLUCOSE; Start 01/13/17 at 07:00 Glucagon (Glucagen) 1 mg Q15M PRN IM DECREASED GLUCOSE; Start 01/13/17 at 07:00 Glucose (Glutose) 15 gm Q15M PRN BUCCAL DECREASED GLUCOSE; Start 01/13/17 at 07 :00 Assessment/Plan Chief Complaint/Hosp Course 1. shock: cardiogenic and probably septic combination : BP has improved now 2. CHF: acute on chronic probably due to systolic and diastolic heart failure 3. acute hypoxemic/ hypercapnic resp failure: s/ p intubation now 4. Afib with RVR 5. HX CAD 6/ HX PCI RCA 2009 7. HX HTN: now hypotensive 8. hyper K: corrected now 9. hx CLL 10. ANEMIA 11. Lactic acidosis 12. dyslipidemia 13./ hx DVT ( treated with XARELTO at home) 14. severe cardiomyopathy now with EF 20% (. EF was 50-55% on 01/01/17 per review of old records) REC: cont ICU care and vent support for now. PULM CONSULT input is greatly appreciated. will give another dose of dig today and check level in AM off off NEOSYNERPHRINE DRIP now. ECHO shows severe LV dysfunction now. will consider ischemic work up once more stable . will try coreg and inc as tolerated. will comletete amiodarone drip CONT ICU CARE. diuresis prn. today she appears not to be fluid overloaded any more and CVP is only at 7. more than 36 min of critical time was spent in management and treatment of this critically ill patient excluding any procedure. thank you. CHINO MERCEDES MD [facility] Problems: CHINO MERCEDES MD Jan 13, 2017 07:43
[2017-01-13] MEDS ORDERED: DIGOXIN 500 MCG INJ IV ONE (08:00)
--- NOTE | 2017-01-13 08:22 | PN ---
DATE: 01/13/2017 SUBJECTIVE DATA: The patient remains critically ill, on ventilatory support. No other acute events noted. No hemoptysis, hematemesis, hematochezia. OBJECTIVE DATA: VITAL SIGNS: Blood pressure is 126/104, respirations 14, pulse 105, temperature 98.6. I's and O's, the patient had 1.4 L, 1 L out. HEENT: Head is normocephalic. NECK: Supple. HEART: Regular rate. LUNGS: Showed diminished breath sounds at the base. ABDOMEN: Soft, nontender to palpation. No rebound or guarding. EXTREMITIES: Negative for clubbing, cyanosis. Trace edema. DERMATOLOGIC: No rashes. MUSCULOSKELETAL: No joint effusion. NEUROLOGIC: No change in exam. MEDICATIONS: Reviewed. LABORATORY AND DIAGNOSTIC DATA: Shows a white count 5.8, hemoglobin 8.5, hematocrit 28.2, platelet count is 178. Sodium 142, potassium 3.9, chloride 101, BUN 18, creatinine 1.27. The patient's cultures been negative to date. Chest x-ray shows small bilateral effusions. ASSESSMENT AND PLAN: 1. Shock. Etiology is likely multifactorial, cardiogenic, septic. The patient has currently been weaned off pressor support. At this point, would continue current treatment plan. Continue IV antibiotics. Continue diuretic therapy as tolerated. Follow up with cardiology and infectious disease. Monitor closely. 2. Acute decompensated heart failure. Systolic, the patient has an ejection fraction of 25 percent. Status post Bumex drip. We will continue to monitor. Follow up with Cardiology. 3. Ventilatory-dependent respiratory failure. Vent settings and ABGs reviewed. Etiology secondary to congestive heart failure and pneumonia. Continue current medical management. Follow up with Pulmonary. 4. Nonoliguric acute kidney injury with unknown baseline creatinine. Etiology secondary to septic acute kidney injury, possible acute tubular necrosis. The patient's renal function appears to have stabilized. At this point, continue current treatment plan. Supportive care. Renally dose all medications. 5. Atrial fibrillation, currently rate controlled. Continue medical management. 6. Anemia. Monitor H and H levels. 7. Mineral bone disorder. Monitor calcium and phosphorus levels. 8. Hypokalemia, resolved. 9. Diabetes. Continue Accu-Cheks and insulin sliding scale. 10. History of chronic lymphocytic leukemia. Continue to monitor. Follow up with Hematology. 11. Coronary artery disease. Continue medical management. 12. Chronic lower extremity deep vein thrombosis. Continue Lovenox. 13. Pulmonary hypertension. Continue current treatment plan. 14. Gastrointestinal and deep venous thrombosis prophylaxis. Please note, I spent over 30 minutes of critical care time with this patient. Dictated By: Timo Mccracken DO /linette/mario /Document#: [id number]
[2017-01-13] MEDS: INSULIN ASPART [NOVOLOG] 3 ML PEN SC SCH ×4 (08:27→20:35)
[2017-01-13] MEDS: MUPIROCIN 2% 22 GM OINT TOP SCH ×2 (08:28→20:35)
[2017-01-13] MEDS: MEROPENEM 500MG/50 ML (PMX) 50 ML IVPB SCH ×2 (09:03→20:25)
[2017-01-13] MEDS: ENOXAPARIN 80 MG/0.8 ML SYG SC SCH ×2 (09:06→20:30)
[2017-01-13] MEDS: VANCOMYCIN 1 GM in NS 250 ML IVPB SCH (10:07)
--- NOTE | 2017-01-13 11:10 | CONS ---
Date/Time of Note Date/Time of Note DATE: 01/13/17 TIME: 11:04 Consult Date/Type/Reason Admit Date/Time Jan 10, 2017 at 23:15 Initial Consult Date 01/11/17 Type of Consultation: Pulmonary Subjective Patient intubated sedated on mechanical ventilation opens eyes appears comfortable. No drainage from Pleur-evac. Currently hemodynamically stable. Objective Vital Signs Date Time Temp Pulse Resp B/P Pulse Ox O2 Delivery O2 Flow Rate FiO2 01/13/17 10:00 101 16 132/107 100 Mechanical Ventilator 01/13/17 07:00 40 01/13/17 06:00 98.8 Intake and Output 01/12/17 01/12/17 01/13/17 15:00 23:00 07:00 Intake Total 912.727 ml 316.68 ml 353.28 ml Output Total 520 ml 380 ml 225 ml Balance 392.727 ml -63.32 ml 128.28 ml Exam HEENT dry mucous membranes pupils equal react to light orally intubated. Cardiac S1-S2 2 6 ejection systolic murmur. Respiratory diminished air entry bilaterally but no rales or wheezes: Abdomen: Soft nontender no guarding or rebound Extremities: No cyanosis clubbing edema Neuro: No focal deficits. Results/Medications Result Diagram: 01/13/17 0400 01/13/17 0420 Results 24 hrs Laboratory Tests Test 01/12/17 15:46 01/12/17 21:54 01/13/17 04:00 01/13/17 04:20 Hemoglobin 8.2 L 8.5 L Hematocrit 27.8 L 28.2 L Erythrocyte Sedimentation Rate 77 H Absolute Reticulocyte Count 0.086 Percent Reticulocyte Count 3.0 H Haptoglobin 244 H Uric Acid 4.8 Iron Level 14 L Total Iron Binding Capacity 207 L Percent Iron Saturation 7 L Ferritin 243.0 Lactate Dehydrogenase 603 Vitamin B12 Level 583 25-Hydroxy Vitamin D Total Pending 25-Hydroxy Vitamin D2 Pending 25-Hydroxy Vitamin D3 Pending Thyroid Stimulating Hormone (TSH) 2.920 Bedside Glucose 118 White Blood Count 5.8 # Red Blood Count 2.87 L Mean Corpuscular Volume 98.3 Mean Corpuscular Hemoglobin 29.6 Mean Corpuscular Hemoglobin Concent 30.1 L Red Cell Distribution Width 15.5 H Platelet Count 178 Mean Platelet Volume 9.9 Neutrophils % 27.0 L Lymphocytes % 40.1 Monocytes % 26.6 H Eosinophils % 0.5 Basophils % 0.3 Nucleated Red Blood Cells % 0.0 Neutrophils # 1.6 Lymphocytes # 2.3 Monocytes # 1.5 H Eosinophils # 0.0 Basophils # 0.0 Nucleated Red Blood Cells # 0.0 Digoxin Level 1.3 Sodium Level 142 Potassium Level 3.9 Chloride Level 101 Carbon Dioxide Level 32 H Anion Gap 13 Blood Urea Nitrogen 18 Creatinine 1.27 H Glucose Level 121 Calcium Level 9.0 Phosphorus Level 3.5 Magnesium Level 2.4 Total Bilirubin 0.2 Direct Bilirubin 0.00 Indirect Bilirubin 0.2 Aspartate Amino Transf (AST/SGOT) 26 Alanine Aminotransferase (ALT/SGPT) 24 Alkaline Phosphatase 74 B-Type Natriuretic Peptide 4540 H Total Protein 5.3 L Albumin 3.4 Test 01/13/17 08:10 01/13/17 08:14 Bedside Glucose 142 Vancomycin Level Trough 15.4 Medications Current Medications Propofol 100 ml @ 2.045 mls/ hr Q12H IV Last administered on 01/12/17 08:16; Admin Dose 10.227 MLS/HR; Start 01/11/17 at 01:30 Vancomycin HCl (Vancocin) 250 ml @ 125 mls/hr Q24H IVPB Last administered on 10:07; Admin Dose 125 MLS/HR; Start 01/11/17 at 09:00 Enoxaparin Sodium 70 mg 70 mg Q12 SC Last administered on 01/13/17 09:06; Admin Dose 70 MG; Start 01/11/17 at 12:30 Meropenem/Sodium Chloride 50 ml @ 100 mls/hr Q12 IVPB Last administered on 09:03; Admin Dose 100 MLS/HR; Start 01/11/17 at 14:30 Phenylephrine HCl/ Dextrose (Baudilio-Syneph/D5W) 250 ml @ 10 mls/hr TITRATE IV Last administered on 01/12/17 06:18; Admin Dose 7.5 MLS/HR; Start 01/12/17 at 06:00 Mupirocin (Bactroban) 1 applic BID TOP Last administered on 01/13/17 08:28; Admin Dose 1 APPLIC; Start 01/12/17 at 13:00 Morphine Sulfate (morphine) 1 mg Q4H PRN IV PAIN Last administered on 19:07; Admin Dose 1 MG; Start 01/12/17 at 19:00 Diagnostic Test (Pha) (Accu-Chek) 1 ea 02 XX ; Start 01/14/17 at 02:00 Insulin Aspart (Novolog Insulin Pen) NOVOLOG *MILD* ALGORI... Q4 SC Last administered on 01/13/17 08:27; Admin Dose 1 UNIT; Start 01/13/17 at 09:00 Miscellaneous Information 1 ea NOTE XX ; Start 01/13/17 at 07:00 Glucose (Glutose) 15 gm Q15M PRN PO DECREASED GLUCOSE; Start 01/13/17 at 07:00 Glucose (Glutose) 22.5 gm Q15M PRN PO DECREASED GLUCOSE; Start 01/13/17 at 07: 00 Dextrose (D50w Syringe) 25 ml Q15M PRN IV DECREASED GLUCOSE; Start 01/13/17 at 07:00 Dextrose (D50w Syringe) 50 ml Q15M PRN IV DECREASED GLUCOSE; Start 01/13/17 at 07:00 Glucagon (Glucagen) 1 mg Q15M PRN IM DECREASED GLUCOSE; Start 01/13/17 at 07:00 Glucose (Glutose) 15 gm Q15M PRN BUCCAL DECREASED GLUCOSE; Start 01/13/17 at 07 :00 Carvedilol (Coreg) 3.125 mg BID NGT Last administered on 01/13/17 10:07; Admin Dose 3.125 MG; Start 01/13/17 at 09:00 Assessment/Plan Chief Complaint/Hosp Course Assessment 1. Hypoxemic respiratory failure 2. Pleural effusion right lung. 3. Encephalopathy likely toxic metabolic 4. History of CLL 5. History of deep vein thrombosis Plan 1. Continue mechanical ventilation 2. Pleurx catheter to be drained 3. CPAP weaning trial 4. DVT GI prophylaxis Problems: [facility]J URBINA MD[facility] Jan 13, 2017 11:10
[2017-01-13] MEDS: PROPOFOL 100 ML IV SCH (12:29)
[2017-01-13 14:00] LABS: AADO2 Arterial 55.6 mmHg (7.0-24.0); Allen Test ACCEPTAB; Arterial Base Excess 7.2 mmol/L (-3.0-3); Arterial COHb 0.3 % (0.0-3.0); Arterial Fraction of Oxyhgb 96.5 % (93.0-99.0); Arterial HCO3 32.4 mmol/L (22.0-26.0); Arterial MetHb 0.3 % (0.0-1.5); Arterial Total Hemglobin 9.3 g/dl (12.0-18.0); Blood Gas PS 10; MODE VENT - CPAP
[2017-01-13 14:37] LABS: MICROALBUMIN 2.6 mg/dL
[2017-01-13] MEDS ORDERED: ALBUTEROL/IPRATROPIUM (NEB) 3 ML AMP HHN PRN (16:30)
[2017-01-13] MEDS ORDERED: RACEPINEPHRINE 2.25%(NEB) 0.5 ML AMP HHN PRN (16:30)
[2017-01-13] MEDS ORDERED: RACEPINEPHRINE 2.25%(NEB) 0.5 ML AMP ONE (16:31)
--- NOTE | 2017-01-13 16:32 | PN ---
DATE: SUBJECTIVE DATA: No acute changes overnight. Patient is awake, comfortable on vent and afebrile. LABORATORY AND DIAGNOSTIC DATA: WBC 5.8, H and H 8.5 and 28.2, platelets 178. BUN 18, creatinine 1.27. MICROBIOLOGY: Blood cultures remain negative. Sputum culture growing Dominga albicans. ANTIMICROBIALS: Patient is on meropenem, vancomycin. She is also getting topical Bactroban to nares. INDWELLING: Endotracheal tube, NG tube, Sifuentes catheter, left subclavian triple lumen catheter. DIAGNOSTICS: Chest x-ray this morning revealed cardiomegaly, stable atelectasis in bilateral lower lungs, combined with small pleural effusion. OBJECTIVE DATA: VITAL SIGNS: Temperature 98, pulse 96, respirations 28, blood pressure 107/47, saturation 96 percent. GENERAL: Obese, well-developed, elderly woman, who is awake, comfortable on CPAP and the patient is in no distress. HEENT: Head atraumatic, normocephalic. Sclerae anicteric. Buccal mucosa dry. NECK: Supple. CHEST: Rise symmetrical. Breath sounds diminished at the bases. HEART: S1, S2. ABDOMEN: Soft, bowel sounds present. EXTREMITIES: Without cyanosis. ASSESSMENT: 1. Acute respiratory failure, possibly aspiration event. 2. Resolving sepsis, status post shock. 3. Congestive heart failure exacerbation. 4. Diabetes. 5. Chronic lymphocytic leukemia. 6. Status post rapid atrial fibrillation. 7. History of bilateral deep venous thrombosis. PLAN: Patient remains stable. Tolerates weanings. Continue present care. Antibiotics. Follow recommendations of consultants. Dictated By: Elvin Owusu NP /linette/josh /Document#: [id number]
[2017-01-13] MEDS ORDERED: ALBUTEROL/IPRATROPIUM (NEB) 3 ML AMP ONE (16:41)
[2017-01-13] MEDS ORDERED: FUROSEMIDE 40 MG INJ IV ONE (17:00)
[2017-01-13 20:59] LABS: AADO2 Arterial 173.1 mmHg (7.0-24.0); Allen Test ACCEPTAB; Arterial Base Excess 3.2 mmol/L (-3.0-3); Arterial COHb 0.3 % (0.0-3.0); Arterial Fraction of Oxyhgb 97.7 % (93.0-99.0); Arterial HCO3 28.4 mmol/L (22.0-26.0); Arterial MetHb 0.2 % (0.0-1.5); Arterial Total Hemglobin 10.4 g/dl (12.0-18.0); Blood Gas IEPAP 18/8; Blood Gas PS 10; MODE MASK - BIPAP
[2017-01-13] MEDS ORDERED: LEVALBUTEROL (NEB) 0.63 MG/3 ML AMP HHN ONE (23:00)
--- NOTE | 2017-01-13 23:20 | CONS ---
Date/Time of Note Date/Time of Note DATE: 01/13/17 TIME: 23:20 Assessment/Plan Assessment/Plan Chief Complaint/Hosp Course CLL- ON TREATMENT RECORD NO AVAILABLE OBTAIN AND REVIEW RECORD TREATMENT - ON HOLD Respiratory failure. Septic shock. Acute decompensated heart failure. Nonoliguric acute kidney injury with unknown baseline creatinine. Etiology secondary to septic acute kidney injury, acute tubular necrosis. Anemia. Monitor H and H levels. Transfuse as needed. Mineral bone disorder. Diabetes. Continue Accu-Cheks and sliding scale. Coronary artery disease. Pulmonary hypertension. Pleural effusions with history of PleurX catheter, currently nonfunctional. Problems: Consultation Date/Type/Reason Admit Date/Time Jan 10, 2017 at 23:15 Initial Consult Date 01/11/17 [facility] Interval Summary Free Text/Dictation ALL NOTED NO NEW EVENTS DOING POORLY Patient's condition remains critical. Patient however has improved hemodynamically and is not requiring any further pressor support. Sedation and is completely awake and alert. She was switched over to CPAP mode but currently does not have adequate weaning parameters. General examination; elderly woman, orally intubated, awake and alert. Currently in no distress. Intubated Orally Exam/Review of Systems Vital Signs Vitals Vital Signs Date Time Temp Pulse Resp B/P Pulse Ox O2 Delivery O2 Flow Rate FiO2 01/13/17 18:00 110 27 103/52 98 BIPAP 01/13/17 17:06 50 01/13/17 16:34 6.0 01/13/17 16:00 97.9 Intake and Output 01/12/17 01/12/17 01/13/17 15:00 23:00 07:00 Intake Total 912.727 ml 316.68 ml 353.28 ml Output Total 520 ml 380 ml 225 ml Balance 392.727 ml -63.32 ml 128.28 ml Exam Exam HEENT exam; supple neck him a positive JVD. No lymphadenopathy. Midline trachea. No thyromegaly. Orally intubated. Is edentulous. Pupils are small bilaterally. No neck masses. Chest examined; diminished but clear breath sounds. S1-S2 audible, no murmurs. Irregular rhythm. Abdomen exam; soft, no organomegaly. Bowel sounds audible. Nontender. Extremity exam; no peripheral edema. DATA ABSTRACTOR exam; patient is awake and follows simple commands. Results Result Diagram: 01/13/17 0400 01/13/17 0420 Results 24 hrs Laboratory Tests Test 01/13/17 04:00 01/13/17 04:20 01/13/17 08:10 01/13/17 08:14 White Blood Count 5.8 # Red Blood Count 2.87 L Hemoglobin 8.5 L Hematocrit 28.2 L Mean Corpuscular Volume 98.3 Mean Corpuscular Hemoglobin 29.6 Mean Corpuscular Hemoglobin Concent 30.1 L Red Cell Distribution Width 15.5 H Platelet Count 178 Mean Platelet Volume 9.9 Neutrophils % 27.0 L Lymphocytes % 40.1 Monocytes % 26.6 H Eosinophils % 0.5 Basophils % 0.3 Nucleated Red Blood Cells % 0.0 Neutrophils # 1.6 Lymphocytes # 2.3 Monocytes # 1.5 H Eosinophils # 0.0 Basophils # 0.0 Nucleated Red Blood Cells # 0.0 Digoxin Level 1.3 Sodium Level 142 Potassium Level 3.9 Chloride Level 101 Carbon Dioxide Level 32 H Anion Gap 13 Blood Urea Nitrogen 18 Creatinine 1.27 H Glucose Level 121 Calcium Level 9.0 Phosphorus Level 3.5 Magnesium Level 2.4 Total Bilirubin 0.2 Direct Bilirubin 0.00 Indirect Bilirubin 0.2 Aspartate Amino Transf (AST/SGOT) 26 Alanine Aminotransferase (ALT/SGPT) 24 Alkaline Phosphatase 74 B-Type Natriuretic Peptide 4540 H Total Protein 5.3 L Albumin 3.4 Bedside Glucose 142 Vancomycin Level Trough 15.4 Test 01/13/17 12:27 01/13/17 13:30 01/13/17 16:57 01/13/17 18:00 Bedside Glucose 121 191 Blood Gas Specimen Source Blood arterial Blood arterial Arterial Blood Date Drawn 01/13/2017 1:39:41 PM 01/13/2017 7:00:24 PM Arterial Blood pH (Temp corrected) 7.431 7.405 Arterial Blood pCO2 (Temp correct) 49.8 H 46.4 H Arterial Blood pO2 (Temp corrected) 99.8 H 131.2 H Arterial Blood HCO3 32.4 H 28.4 H Arterial Blood Base Excess 7.2 H 3.2 H Arterial Blood Oxygen Saturation 97.1 98.2 Blayne Test ACCEPTAB ACCEPTAB Arterial Blood Gas Puncture Site Right Radial Right Radial Arterial Blood Carboxyhemoglobin 0.3 0.3 Arterial Blood Methemoglobin 0.3 0.2 Blood Gas A-a O2 Differential 55.6 H 173.1 H Oxyhemoglobin Percent 96.5 97.7 Total Hemoglobin 9.3 L 10.4 L Blood Gas Temperature 37.0 37.0 Blood Gas Actual Respiration Rate 36 34 Blood Gas Modality VENT - CPAP MASK - BIPAP FiO2 30.0 50.0 Blood Gas Low PEEP Setting 5.0 Blood Gas Pressure Support 10 10 Blood Gas Notified Whom TM MA Blood Gas Notified Time 01/13/2017 2:00:23 PM 01/13/2017 7:16:18 PM Blood Gas Respiration Rate 20.0 Blood Gas IPAP/EPAP Ratio 10/12 Test 01/13/17 20:34 Bedside Glucose 128 Medications Medications Current Medications Propofol 100 ml @ 2.045 mls/ hr Q12H IV Last administered on 01/12/17 08:16; Admin Dose 10.227 MLS/HR; Start 01/11/17 at 01:30 Vancomycin HCl (Vancocin) 250 ml @ 125 mls/hr Q24H IVPB Last administered on 10:07; Admin Dose 125 MLS/HR; Start 01/11/17 at 09:00 Enoxaparin Sodium 70 mg 70 mg Q12 SC Last administered on 01/13/17 20:30; Admin Dose 70 MG; Start 01/11/17 at 12:30 Meropenem/Sodium Chloride 50 ml @ 100 mls/hr Q12 IVPB Last administered on 20:25; Admin Dose 100 MLS/HR; Start 01/11/17 at 14:30 Phenylephrine HCl/ Dextrose (Baudilio-Syneph/D5W) 250 ml @ 10 mls/hr TITRATE IV Last administered on 01/12/17 06:18; Admin Dose 7.5 MLS/HR; Start 01/12/17 at 06:00 Mupirocin (Bactroban) 1 applic BID TOP Last administered on 01/13/17 20:35; Admin Dose 1 APPLIC; Start 01/12/17 at 13:00 Morphine Sulfate (morphine) 1 mg Q4H PRN IV PAIN Last administered on 19:07; Admin Dose 1 MG; Start 01/12/17 at 19:00 Diagnostic Test (Pha) (Accu-Chek) 1 ea 02 XX ; Start 9/22/17 at 02:00 Insulin Aspart (Novolog Insulin Pen) NOVOLOG *MILD* ALGORI... Q4 SC Last administered on 01/13/17 17:00; Admin Dose 2 UNIT; Start 01/13/17 at 09:00 Miscellaneous Information 1 ea NOTE XX ; Start 01/13/17 at 07:00 Glucose (Glutose) 15 gm Q15M PRN PO DECREASED GLUCOSE; Start 01/13/17 at 07:00 Glucose (Glutose) 22.5 gm Q15M PRN PO DECREASED GLUCOSE; Start 01/13/17 at 07: 00 Dextrose (D50w Syringe) 25 ml Q15M PRN IV DECREASED GLUCOSE; Start 01/13/17 at 07:00 Dextrose (D50w Syringe) 50 ml Q15M PRN IV DECREASED GLUCOSE; Start 01/13/17 at 07:00 Glucagon (Glucagen) 1 mg Q15M PRN IM DECREASED GLUCOSE; Start 01/13/17 at 07:00 Glucose (Glutose) 15 gm Q15M PRN BUCCAL DECREASED GLUCOSE; Start 01/13/17 at 07 :00 Carvedilol (Coreg) 3.125 mg BID NGT Last administered on 01/13/17 20:25; Admin Dose 3.125 MG; Start 01/13/17 at 09:00 SE RAY MD Jan 13, 2017 23:20
[2017-01-14] VITALS (61 sets, daily range): BP systolic 85–128; BP diastolic 37–81; PULSE 84–125; RESP 0–52
[2017-01-14] MEDS: INSULIN ASPART [NOVOLOG] 3 ML PEN SC SCH ×6 (01:00→20:16)
[2017-01-14] MEDS: PROPOFOL 100 ML IV SCH ×2 (01:30→13:30)
[2017-01-14] MEDS: ACCU-CHEK XX SCH (02:00)
[2017-01-14] MEDS: LEVALBUTEROL (NEB) 0.63 MG/3 ML AMP HHN PRN ×2 (03:04→08:32)
[2017-01-14] MEDS: morphine 2 MG INJ IV PRN (03:36)
[2017-01-14 06:04] LABS: ABNORMAL IP MESSAGE 1; HEMATOCRIT 28.8 % (37.0-47.0); HEMOGLOBIN 8.5 g/dl (12.0-16.0); MEAN CORPUSCULAR HEMOGLOBIN 29.2 pg (29.0-33.0); MEAN CORPUSCULAR HGB CONC 29.5 g/dl (32.0-37.0); MEAN PLATELET VOLUME 9.7 fl (7.4-10.4); PLATELET COUNT 199 10^3/UL (140-415); RED BLOOD COUNT 2.91 10^6/ul (4.20-5.40); RED CELL DISTRIBUTION WIDTH 15.2 % (11.5-14.5); WHITE BLOOD COUNT 5.4 10^3/ul (4.8-10.8)
[2017-01-14 06:13] LABS: POSITIVE DIFF @See below
[2017-01-14 06:49] LABS: ALBUMIN 3.3 g/dl (3.3-4.9); ALBUMIN/GLOBULIN RATIO 1.43; CALCIUM 9.2 mg/dl (8.4-10.2); CREATININE 1.21 mg/dl (0.44-1.00); MAGNESIUM 2.1 mg/dl (1.7-2.5); POTASSIUM 3.8 mmol/L (3.5-5.1); TOTAL PROTEIN 5.6 g/dl (6.1-8.1)
[2017-01-14] MEDS ORDERED: MIDAZOLAM 1 MG/ML 2 ML INJ ONE (07:00)
[2017-01-14] MEDS ORDERED: ETOMIDATE 20 MG INJ ONE (07:00)
[2017-01-14] MEDS ORDERED: SUCCINYLCHOLINE CHLORIDE 100 MG/5 ML SYG IV ONE (07:00)
[2017-01-14 07:51] LABS: ANISOCYTOSIS 1+ (0-0); EOSINOPHILS % (M) 1 % (0-7); GIANT THROMBO% (M) 1 % (0-0); MICROCYTOSIS 1+ (0-0); MONOCYTES % (M) 9 % (0-11); PLATELET ESTIMATE NORMAL; POIKILOCYTOSIS 1+ (0-0); POLYCHROMASIA 1+ (0-0); REACTIVE LYMPHOCYTES% (M) 1 % (0-0)
[2017-01-14 08:11] LABS: BILIRUBIN,INDIRECT 0.2 mg/dl (0-1.1); BILIRUBIN,TOTAL 0.2 mg/dl (0.2-1.3)
[2017-01-14 08:17] LABS: AADO2 Arterial 71.5 mmHg (7.0-24.0); Allen Test ACCEPTAB; Arterial COHb 0.3 % (0.0-3.0); Arterial Fraction of Oxyhgb 98.1 % (93.0-99.0); Arterial HCO3 32.9 mmol/L (22.0-26.0); Arterial MetHb 0.2 % (0.0-1.5); Arterial Total Hemglobin 9.8 g/dl (12.0-18.0); Blood Gas IEPAP 18/8; MODE MASK - BIPAP
--- NOTE | 2017-01-14 09:07 | RADRPT ---
PROCEDURE: XR Chest. CLINICAL INDICATION: Shortness of breath. TECHNIQUE: Single frontal view. COMPARISON: 01/13/2017. FINDINGS: The nasogastric tube and left internal jugular vein catheter remain in position. Bilateral patchy pu lmonary air space disease consistent with pulmonary edema or multifocal pneumonia is unchanged. The heart is enlarged. There is calcification in the aorta consistent with atherosclerosis. There are small bilateral pleural effusions. There is no pneumothorax. IMPRESSION: 1. Unchanged appearance of the lungs. RPTAT: QQ .Noe Aragon MD, MD Date Time Electronically viewed and signed by .Noe Aragon MD, MD on 01/14/2017 09:07 .R/
[2017-01-14] MEDS: ENOXAPARIN 80 MG/0.8 ML SYG SC SCH ×2 (09:29→20:14)
[2017-01-14] MEDS: VANCOMYCIN 1 GM in NS 250 ML IVPB SCH (09:30)
[2017-01-14] MEDS: DEXTROSE 5% 1,000 ML IV SCH (09:30)
[2017-01-14] MEDS: MUPIROCIN 2% 22 GM OINT TOP SCH ×2 (09:34→20:16)
[2017-01-14] MEDS: MEROPENEM 500MG/50 ML (PMX) 50 ML IVPB SCH ×2 (09:34→20:12)
--- NOTE | 2017-01-14 09:36 | PN ---
DATE: 01/14/2017 SUBJECTIVE DATA: The patient was extubated yesterday and placed on BiPAP. Overnight, the patient was weaned from BiPAP. No other acute events noted. No hemoptysis, hematemesis, hematochezia. OBJECTIVE DATA: VITAL SIGNS: Blood pressure is 110/50, respirations 29, pulse 96, temperature 97.8. HEENT: Head is normocephalic. NECK: Supple. HEART: Regular rate. LUNGS: Diminished breath sounds at the base. ABDOMEN: Soft. Nontender to palpation. No rebound or guarding. EXTREMITIES: Negative for clubbing, cyanosis. No edema. DERMATOLOGIC: No rashes. MUSCULOSKELETAL: No joint effusion. NEUROLOGIC: No change in exam. MEDICATIONS: Reviewed. LABORATORY AND DIAGNOSTIC DATA: Shows sodium 142, potassium 3.8, BUN is 21, creatinine 1.21. White count 5.4, hemoglobin 8.5, hematocrit 28.8, platelet count is 199. The patient's chest x- ray was reviewed. The patient's sputum culture is positive for Dominga albicans. ASSESSMENT AND PLAN: 1. Acute hypoxemic respiratory failure. The patient is status post extubation, currently on BiPAP. Continue current medical management. Follow up with Pulmonary. 2. Shock, etiology multifactorial, cardiogenic versus septic. The patient has been currently weaned off pressor support. At this point, continue current treatment plan. Continue diuretic therapy. 3. Acute decompensated heart failure. The patient's ejection fraction is 25 percent. Patient status post Bumex drip. The patient is more euvolemic. Continue to monitor. Follow up with Cardiology for diuretic management. 4. Nonoliguric acute kidney injury with unknown baseline creatinine. Etiology secondary to septic acute kidney injury, acute tubular necrosis. Renal function appears to have stabilized. Continue current treatment plan. Supportive care. Renally dose all medications. 5. Congestive heart failure. Currently rate controlled. Continue medical management. 6. Anemia. Monitor H and H levels. 7. Mineral bone disorder. Monitor calcium and phosphate levels. 8. Hypokalemia, improved. 9. Diabetes. Continue Accu-Cheks and insulin sliding scale. 10. Chronic lymphocytic leukemia. Continue to monitor. Follow up with Hematology. 11. Coronary artery disease. Continue medical management. 12. History of chronic lower extremity deep vein thrombosis. Continue Lovenox. 13. Pulmonary hypertension. Continue current treatment plan. 14. Pleural effusions with history PleurX catheter, currently nonfunctional. We will defer to Pulmonary for management. 15. Gastrointestinal and deep venous thrombosis prophylaxis. Please note, I spent over 30 minutes of critical care time with this patient. Dictated By: Timo Mccracken DO /linette/mario /Document#: [id number]
[2017-01-14] MEDS ORDERED: MIDAZOLAM (DRIP) 50 mg/50 mL 50 ML IV ONE (11:40)
[2017-01-14] MEDS ORDERED: FENTAnyl (DRIP) 1000 mcg/100mL 100 ML IV ONE (12:14)
--- NOTE | 2017-01-14 12:19 | RADRPT ---
PROCEDURE: XR Chest 1 view. CLINICAL INDICATION: Shortness of breath, status post intubation. TECHNIQUE: AP views of the chest were obtained. COMPARISON: January 14, 2017 06:03 a.m. FINDINGS: The heart is large. Calcified atherosclerosis is noted in the aorta. Endotracheal tube has its tip approximately 4.3 cm above the jaya. Nasogastric tube has its distal end in the expected location of the stomach. Left-sided central line is unchanged. Central pulmonary vascular congestion and inte rstitial prominence in both lungs is stable. Retrocardiac opacity is unchanged. Patchy right lower l janelle atelectasis versus infiltrate and small right pleural effusion are stable. Right-sided chest tub e is stable. Osseous structures are intact. IMPRESSION: Cardiomegaly with calcified atherosclerosis in the aorta. Endotracheal tube with its tip approximately 4.3 cm above the jaya. Stable central pulmonary vascular congestion and mild interstitial prominence in both lungs. Stable retrocardiac opacity that may reflect left lower lobe atelectasis or infiltrate combined with small pleural effusion. Stable patchy right lower lung atelectasis versus infiltrates and small right pleural effusion. Stable right chest tube. No visualized pneumothorax. RPTAT: AA .Jason Chacko MD, Date Time Electronically viewed and signed by .Jason Chacko MD, on 01/14/2017 12:19 .P/
[2017-01-14] MEDS: MIDAZOLAM (DRIP) 50 mg/50 mL 50 ML IV SCH (12:38)
[2017-01-14 12:50] LABS: AADO2 Arterial 319.7 mmHg (7.0-24.0); Arterial Base Excess 8.1 mmol/L (-3.0-3); Arterial COHb 0.3 % (0.0-3.0); Arterial Fraction of Oxyhgb 98.8 % (93.0-99.0); Arterial HCO3 33.7 mmol/L (22.0-26.0); Arterial MetHb 0.3 % (0.0-1.5); Arterial Total Hemglobin 11.4 g/dl (12.0-18.0); MODE VENT - AC
[2017-01-14] MEDS: FENTAnyl (DRIP) 1000 mcg/100mL 100 ML IV SCH (13:30)
--- NOTE | 2017-01-14 13:34 | PN ---
DATE: 01/14/2017 SUBJECTIVE DATA: The patient had been extubated, but currently in respiratory distress on BiPAP, tachycardic, pending intubation. Temperature 97.9, pulse 125, respirations 40, blood pressure 128/81, saturation 92 percent on BiPAP. LABORATORY AND DIAGNOSTIC DATA: WBC 5.4, H and H 8.5 and 28.8, platelets 199, BUN 21, creatinine 1.21. MICROBIOLOGY: Blood cultures remain negative. Nares swab grew MRSA. Endotracheal aspirate growing Dominga albicans. ANTIMICROBIALS: The patient is on meropenem and vancomycin. INDWELLINGS: Patient has Sifeuntes catheter, left subclavian triple lumen catheter and right PleurX. PHYSICAL EXAMINATION: GENERAL: This is a fragile, chronically ill-appearing, elderly woman, who is lethargic, in mild distress. Tachycardic. HEENT: Had atraumatic, normocephalic. Sclerae anicteric. NECK: Supple. CHEST: Rise symmetrical. Breath sounds with bilateral rhonchi. HEART: S1, S2. Tachycardic. ABDOMEN: Soft, bowel sounds hypoactive. EXTREMITIES: Without cyanosis, trace edema. ASSESSMENT: 1. Acute hypoxemic respiratory failure, possibly secondary to fluid overload as well as possible aspiration pneumonia. 2. Status post septic shock. 3. Diabetes. 4. Status post rapid atrial fibrillation. 5. Chronic lymphocytic leukemia. 6. History of deep vein thrombosis. PLAN: The patient is going to be intubated. Dr. Laws at bedside. We will keep her on current antibiotics. Add fluconazole to the regimen. Dictated By: Elvin Owusu NP /linette/randee /Document#: [id number]
--- NOTE | 2017-01-14 15:42 | CONS ---
Date/Time of Note Date/Time of Note DATE: 01/14/17 TIME: 15:39 Consult Date/Type/Reason Admit Date/Time Jan 10, 2017 at 23:15 Initial Consult Date 01/11/17 Type of Consultation: Pulm Subjective Breathing significantly labored this morning. More somnolent. Hypoxemia is worse. Objective Vital Signs Date Time Temp Pulse Resp B/P Pulse Ox O2 Delivery O2 Flow Rate FiO2 01/14/17 15:18 83 18 100 40 01/14/17 12:30 96/56 01/14/17 12:00 98.1 Mechanical Ventilator 01/14/17 08:36 4.0 Intake and Output 01/13/17 01/13/17 01/14/17 15:00 23:00 07:00 Intake Total 376.66 ml 50 ml Output Total 220 ml 860 ml 290 ml Balance 156.66 ml -810 ml -290 ml Exam HEENT dry mucous membranes pupils equal react to light Cardiac S1-S2 2 6 ejection systolic murmur. Respiratory diminished air entry bilaterally but no rales or wheezes: Abdomen: Soft nontender no guarding or rebound Extremities: No cyanosis clubbing edema Neuro: No focal deficits. Results/Medications Result Diagram: 01/14/17 0520 01/14/17 0520 Results 24 hrs Laboratory Tests Test 01/13/17 16:57 01/13/17 18:00 01/13/17 20:34 01/14/17 01:16 Bedside Glucose 191 128 97 Blood Gas Specimen Source Blood arterial Arterial Blood Date Drawn 01/13/2017 7:00:24 PM Arterial Blood pH (Temp corrected) 7.405 Arterial Blood pCO2 (Temp correct) 46.4 H Arterial Blood pO2 (Temp corrected) 131.2 H Arterial Blood HCO3 28.4 H Arterial Blood Base Excess 3.2 H Arterial Blood Oxygen Saturation 98.2 Blayne Test ACCEPTAB Arterial Blood Gas Puncture Site Right Radial Arterial Blood Carboxyhemoglobin 0.3 Arterial Blood Methemoglobin 0.2 Blood Gas A-a O2 Differential 173.1 H Oxyhemoglobin Percent 97.7 Total Hemoglobin 10.4 L Blood Gas Temperature 37.0 Blood Gas Respiration Rate 20.0 Blood Gas Actual Respiration Rate 34 Blood Gas Modality MASK - BIPAP FiO2 50.0 Blood Gas Pressure Support 10 Blood Gas IPAP/EPAP Ratio 10/12 Blood Gas Notified Whom MA Blood Gas Notified Time 01/13/2017 7:16:18 PM Test 01/14/17 05:20 01/14/17 05:32 01/14/17 07:00 01/14/17 09:32 White Blood Count 5.4 Red Blood Count 2.91 L Hemoglobin 8.5 L Hematocrit 28.8 L Mean Corpuscular Volume 99.0 Mean Corpuscular Hemoglobin 29.2 Mean Corpuscular Hemoglobin Concent 29.5 L Red Cell Distribution Width 15.2 H Platelet Count 199 Mean Platelet Volume 9.7 Neutrophils % Segmented Neutrophils % (Manual) 31 L Band Neutrophils % (Manual) 1 Lymphocytes % Lymphocytes % (Manual) 57 H Reactive Lymphocytes % (Manual) 1 H Monocytes % Monocytes % (Manual) 9 Eosinophils % Eosinophils % (Manual) 1 Basophils % Nucleated Red Blood Cells % 0.0 Neutrophils # Neutrophils # (Manual) 1.7 Band Neutrophils # 0.0 Absolute Lymphocytes (Manual) 3.0 H Lymphocytes # Reactive Lymphocytes # 0.0 Monocytes # Absolute Monocytes (Manual) 0.4 Eosinophils # Basophils # Nucleated Red Blood Cells # Platelet Estimate NORMAL Giant Platelets 1 H Polychromasia 1+ Poikilocytosis 1+ Anisocytosis 1+ Microcytosis 1+ Sodium Level 142 Potassium Level 3.8 Chloride Level 101 Carbon Dioxide Level 36 H Anion Gap 9 Blood Urea Nitrogen 21 H Creatinine 1.21 H Glucose Level 96 Calcium Level 9.2 Magnesium Level 2.1 Total Bilirubin 0.2 Direct Bilirubin 0.00 Indirect Bilirubin 0.2 Aspartate Amino Transf (AST/SGOT) 31 Alanine Aminotransferase (ALT/SGPT) 27 Alkaline Phosphatase 70 B-Type Natriuretic Peptide 3970 H Total Protein 5.6 L Albumin 3.3 Globulin 2.30 Albumin/Globulin Ratio 1.43 Digoxin Level 1.2 Bedside Glucose 95 118 Blood Gas Specimen Source Blood arterial Arterial Blood Date Drawn 01/14/2017 7:20:59 AM Arterial Blood pH (Temp corrected) 7.403 Arterial Blood pCO2 (Temp correct) 53.9 H Arterial Blood pO2 (Temp corrected) 151.7 H Arterial Blood HCO3 32.9 H Arterial Blood Base Excess 7.0 H Arterial Blood Oxygen Saturation 98.6 Blayne Test ACCEPTAB Arterial Blood Gas Puncture Site Right Radial Arterial Blood Carboxyhemoglobin 0.3 Arterial Blood Methemoglobin 0.2 Blood Gas A-a O2 Differential 71.5 H Oxyhemoglobin Percent 98.1 Total Hemoglobin 9.8 L Blood Gas Temperature 37.0 Blood Gas Respiration Rate 20.0 Blood Gas Actual Respiration Rate 22 Blood Gas Modality MASK - BIPAP FiO2 40.0 Blood Gas IPAP/EPAP Ratio 18/8 Blood Gas Notified Whom Blood Gas Notified Time 01/14/2017 8:17:00 AM Test 01/14/17 12:30 01/14/17 13:24 Blood Gas Specimen Source Blood arterial Arterial Blood Date Drawn 01/14/2017 12:35:55 PM Arterial Blood pH (Temp corrected) 7.428 Arterial Blood pCO2 (Temp correct) 52.2 H Arterial Blood pO2 (Temp corrected) 341.1 H Arterial Blood HCO3 33.7 H Arterial Blood Base Excess 8.1 H Arterial Blood Oxygen Saturation 99.4 Blayne Test N/A Arterial Blood Gas Puncture Site Right Brachial Arterial Blood Carboxyhemoglobin 0.3 Arterial Blood Methemoglobin 0.3 Blood Gas A-a O2 Differential 319.7 H Oxyhemoglobin Percent 98.8 Total Hemoglobin 11.4 L Blood Gas Temperature 37.0 Blood Gas Modality VENT - AC FiO2 100.0 Blood Gas Tidal Volume 400.0 Blood Gas Low PEEP Setting 5.0 Blood Gas Notified Whom Blood Gas Notified Time 01/14/2017 12:50:00 PM Bedside Glucose 116 Medications Current Medications Propofol 100 ml @ 2.045 mls/ hr Q12H IV Last administered on 01/12/17 08:16; Admin Dose 10.227 MLS/HR; Start 01/11/17 at 01:30 Vancomycin HCl (Vancocin) 250 ml @ 125 mls/hr Q24H IVPB Last administered on 09:30; Admin Dose 125 MLS/HR; Start 01/11/17 at 09:00 Enoxaparin Sodium 70 mg 70 mg Q12 SC Last administered on 01/14/17 09:29; Admin Dose 70 MG; Start 01/11/17 at 12:30 Meropenem/Sodium Chloride 50 ml @ 100 mls/hr Q12 IVPB Last administered on 09:34; Admin Dose 100 MLS/HR; Start 01/11/17 at 14:30 Phenylephrine HCl/ Dextrose (Baudilio-Syneph/D5W) 250 ml @ 10 mls/hr TITRATE IV Last administered on 01/12/17 06:18; Admin Dose 7.5 MLS/HR; Start 01/12/17 at 06:00 Mupirocin (Bactroban) 1 applic BID TOP Last administered on 01/14/17 09:34; Admin Dose 1 APPLIC; Start 01/12/17 at 13:00 Morphine Sulfate (morphine) 1 mg Q4H PRN IV PAIN Last administered on 03:36; Admin Dose 1 MG; Start 01/12/17 at 19:00 Diagnostic Test (Pha) (Accu-Chek) 1 ea 02 XX ; Start 01/14/17 at 02:00 Insulin Aspart (Novolog Insulin Pen) NOVOLOG *MILD* ALGORI... Q4 SC Last administered on 01/13/17 17:00; Admin Dose 2 UNIT; Start 01/13/17 at 09:00 Miscellaneous Information 1 ea NOTE XX ; Start 01/13/17 at 07:00 Glucose (Glutose) 15 gm Q15M PRN PO DECREASED GLUCOSE; Start 01/13/17 at 07:00 Glucose (Glutose) 22.5 gm Q15M PRN PO DECREASED GLUCOSE; Start 01/13/17 at 07: 00 Dextrose (D50w Syringe) 25 ml Q15M PRN IV DECREASED GLUCOSE; Start 01/13/17 at 07:00 Dextrose (D50w Syringe) 50 ml Q15M PRN IV DECREASED GLUCOSE; Start 01/13/17 at 07:00 Glucagon (Glucagen) 1 mg Q15M PRN IM DECREASED GLUCOSE; Start 01/13/17 at 07:00 Glucose (Glutose) 15 gm Q15M PRN BUCCAL DECREASED GLUCOSE; Start 01/13/17 at 07 :00 Carvedilol 3.125 mg 3.125 mg BID NGT Last administered on 01/14/17 09:29; Admin Dose 3.125 MG; Start 01/13/17 at 09:00 Dextrose 1,000 ml @ 50 mls/hr Q20H IV Last administered on 01/14/17 09:30; Admin Dose 50 MLS/HR; Start 01/14/17 at 08:00 Midazolam HCl 50 ml @ 1 mls/hr TITRATE IV Last administered on 01/14/17 12:38 ; Admin Dose 1 MLS/HR; Start 01/14/17 at 12:00 Fentanyl (Sublimaze) 100 ml @ 2.5 mls/hr TITRATE IV Last administered on t 13:30; Admin Dose 2.5 MLS/HR; Start 01/14/17 at 13:00 Nystatin (Nystatin Powder) 1 applic BID TOP ; Start 01/14/17 at 15:00 Assessment/Plan Chief Complaint/Hosp Course Assessment 1. Hypoxemic respiratory failure. Worsening respiratory symptoms today. Will require reintubation. 2. Pleural effusion right lung. Pleurx catheter is not draining. Discussed with radiology, Right pleural effusion is not significant at present. We will continue to monitor if effusion increases in size patient will require removal of current Pleurx catheter and thoracentesis and/or placement with second catheter. 3. Encephalopathy likely toxic metabolic 4. History of CLL 5. History of deep vein thrombosis Plan 1. Reintubation and mechanical ventilation. 2. Pleurx catheter Plan as noted. 3. Resume tube feeding. 4. DVT GI prophylaxis Family conference regarding goals of care and current condition. Problems: VJ URBINA MD, [facility] Jan 14, 2017 15:42
--- NOTE | 2017-01-14 15:53 | EN ---
Date/Time of Note Date/Time of Note DATE: 01/14/17 TIME: 15:52 Event Note Medicine Medicine Event Note Procedure note Endotracheal intubation Indication hypoxemic respiratory failure Description Patient was placed in supine position with neck extended. Her blood pressure EKG and pulse oximetry were continuously monitored. 10 mg of etomidate and 100 mg of succinylcholine were administered. Using a Mane blade 4 laryngoscope vocal cords were visualized which were noted to be normal in appearance and movement. Edema was noted. A size 7.5 endotracheal tube was passed through the vocal cords without resistance. This was secured at 22 cm to the lip. CO2 capnometer was immediately positive, there was condensation in the endotracheal tube and patient had equal breath sounds bilaterally. Postintubation chest x-ray and ABG have been requested Patient tolerated the procedure without complication [facility] Jan 14, 2017 15:53
[2017-01-14] MEDS: BALSAM PERU/CASTOR OIL 60 GM TUBE TOP SCH ×2 (16:00→22:55)
[2017-01-14] MEDS: NYSTATIN 30 GM POWDER BTL TOP SCH ×2 (16:00→22:55)
--- NOTE | 2017-01-14 16:41 | CONS ---
Date/Time of Note Date/Time of Note DATE: 01/14/17 TIME: 16:37 Consult Date/Type/Reason Admit Date/Time Jan 10, 2017 at 23:15 Initial Consult Date 01/11/17 Type of Consultation: CARDIOLOGY Subjective CARDIOLOGY follow up note: S: D/W staff and rhythm was reviewed. pt remains in afib. HR has been better controlled she is off of neosynerphrine drip now. pt was extubated 12/25/16 but had to be re-intubated on 01/14/17. she is still on vent in ICU. pt is nonverbal. her old records were extensively reviewed pt's EF was normal at 50-55% on 01/01/17 CV checked today about 8-12 O: gen: intubated on vent HEENT: Pupils are equal NECK: + JVD CV: irregularly irregular. systolic murmur Chest: s/p pelurodex right side GI: soft NT ND. no rebound. no guarding ext: + trace LE edema neuro:Opens her eyes and respond appropriately Derm: multiple echymosis psych; calm now ECG reviewed: afib RVR. ant infarct. CXR reviewed ECHO 01/11/17reviewed personally: 1. Normal left ventricular cavity size. Normal left ventricular wall thickness. Severe left ventricular systolic dysfunction. Ejection fraction is visually estimated at 25 %. Multiple segmental wall motion abnormalities. 2. There is mild enlargement of left atrium. 3. Mild mitral leaflet calcification. Mild mitral annular calcification. Mild mitral valve regurgitation. 4. Aortic sclerosis without stenosis. Trace aortic valve regurgitation. 5. Normal appearance of the tricuspid valve. Estimated peak PA systolic pressure 53 mmHg. There is mild tricuspid regurgitation. 6. Inferior vena cava without respiratory collapse, however, patient on ventilator. ECHO 01/01/17: per review of old charts. EF 50-55%. LAE. MOD/ SEVERE MR. Objective Vital Signs Date Time Temp Pulse Resp B/P Pulse Ox O2 Delivery O2 Flow Rate FiO2 01/14/17 15:56 40 01/14/17 15:45 91 12 93/48 100 01/14/17 13:00 Mechanical Ventilator 01/14/17 12:00 98.1 01/14/17 08:36 4.0 Intake and Output 01/13/17 01/13/17 01/14/17 15:00 23:00 07:00 Intake Total 376.66 ml 50 ml Output Total 220 ml 860 ml 320 ml Balance 156.66 ml -810 ml -320 ml Results/Medications Result Diagram: 01/14/17 0520 01/14/17 0520 Results 24 hrs Laboratory Tests Test 01/13/17 16:57 01/13/17 18:00 01/13/17 20:34 01/14/17 01:16 Bedside Glucose 191 128 97 Blood Gas Specimen Source Blood arterial Arterial Blood Date Drawn 01/13/2017 7:00:24 PM Arterial Blood pH (Temp corrected) 7.405 Arterial Blood pCO2 (Temp correct) 46.4 H Arterial Blood pO2 (Temp corrected) 131.2 H Arterial Blood HCO3 28.4 H Arterial Blood Base Excess 3.2 H Arterial Blood Oxygen Saturation 98.2 Blayne Test ACCEPTAB Arterial Blood Gas Puncture Site Right Radial Arterial Blood Carboxyhemoglobin 0.3 Arterial Blood Methemoglobin 0.2 Blood Gas A-a O2 Differential 173.1 H Oxyhemoglobin Percent 97.7 Total Hemoglobin 10.4 L Blood Gas Temperature 37.0 Blood Gas Respiration Rate 20.0 Blood Gas Actual Respiration Rate 34 Blood Gas Modality MASK - BIPAP FiO2 50.0 Blood Gas Pressure Support 10 Blood Gas IPAP/EPAP Ratio 10/12 Blood Gas Notified Whom MA Blood Gas Notified Time 01/13/2017 7:16:18 PM Test 01/14/17 05:20 01/14/17 05:32 01/14/17 07:00 01/14/17 09:32 White Blood Count 5.4 Red Blood Count 2.91 L Hemoglobin 8.5 L Hematocrit 28.8 L Mean Corpuscular Volume 99.0 Mean Corpuscular Hemoglobin 29.2 Mean Corpuscular Hemoglobin Concent 29.5 L Red Cell Distribution Width 15.2 H Platelet Count 199 Mean Platelet Volume 9.7 Neutrophils % Segmented Neutrophils % (Manual) 31 L Band Neutrophils % (Manual) 1 Lymphocytes % Lymphocytes % (Manual) 57 H Reactive Lymphocytes % (Manual) 1 H Monocytes % Monocytes % (Manual) 9 Eosinophils % Eosinophils % (Manual) 1 Basophils % Nucleated Red Blood Cells % 0.0 Neutrophils # Neutrophils # (Manual) 1.7 Band Neutrophils # 0.0 Absolute Lymphocytes (Manual) 3.0 H Lymphocytes # Reactive Lymphocytes # 0.0 Monocytes # Absolute Monocytes (Manual) 0.4 Eosinophils # Basophils # Nucleated Red Blood Cells # Platelet Estimate NORMAL Giant Platelets 1 H Polychromasia 1+ Poikilocytosis 1+ Anisocytosis 1+ Microcytosis 1+ Sodium Level 142 Potassium Level 3.8 Chloride Level 101 Carbon Dioxide Level 36 H Anion Gap 9 Blood Urea Nitrogen 21 H Creatinine 1.21 H Glucose Level 96 Calcium Level 9.2 Magnesium Level 2.1 Total Bilirubin 0.2 Direct Bilirubin 0.00 Indirect Bilirubin 0.2 Aspartate Amino Transf (AST/SGOT) 31 Alanine Aminotransferase (ALT/SGPT) 27 Alkaline Phosphatase 70 B-Type Natriuretic Peptide 3970 H Total Protein 5.6 L Albumin 3.3 Globulin 2.30 Albumin/Globulin Ratio 1.43 Digoxin Level 1.2 Bedside Glucose 95 118 Blood Gas Specimen Source Blood arterial Arterial Blood Date Drawn 01/14/2017 7:20:59 AM Arterial Blood pH (Temp corrected) 7.403 Arterial Blood pCO2 (Temp correct) 53.9 H Arterial Blood pO2 (Temp corrected) 151.7 H Arterial Blood HCO3 32.9 H Arterial Blood Base Excess 7.0 H Arterial Blood Oxygen Saturation 98.6 Blayne Test ACCEPTAB Arterial Blood Gas Puncture Site Right Radial Arterial Blood Carboxyhemoglobin 0.3 Arterial Blood Methemoglobin 0.2 Blood Gas A-a O2 Differential 71.5 H Oxyhemoglobin Percent 98.1 Total Hemoglobin 9.8 L Blood Gas Temperature 37.0 Blood Gas Respiration Rate 20.0 Blood Gas Actual Respiration Rate 22 Blood Gas Modality MASK - BIPAP FiO2 40.0 Blood Gas IPAP/EPAP Ratio 18/8 Blood Gas Notified Whom CW Blood Gas Notified Time 01/14/2017 8:17:00 AM Test 01/14/17 12:30 01/14/17 13:24 Blood Gas Specimen Source Blood arterial Arterial Blood Date Drawn 01/14/2017 12:35:55 PM Arterial Blood pH (Temp corrected) 7.428 Arterial Blood pCO2 (Temp correct) 52.2 H Arterial Blood pO2 (Temp corrected) 341.1 H Arterial Blood HCO3 33.7 H Arterial Blood Base Excess 8.1 H Arterial Blood Oxygen Saturation 99.4 Blayne Test N/A Arterial Blood Gas Puncture Site Right Brachial Arterial Blood Carboxyhemoglobin 0.3 Arterial Blood Methemoglobin 0.3 Blood Gas A-a O2 Differential 319.7 H Oxyhemoglobin Percent 98.8 Total Hemoglobin 11.4 L Blood Gas Temperature 37.0 Blood Gas Modality VENT - AC FiO2 100.0 Blood Gas Tidal Volume 400.0 Blood Gas Low PEEP Setting 5.0 Blood Gas Notified Whom CW Blood Gas Notified Time 01/14/2017 12:50:00 PM Bedside Glucose 116 Medications Current Medications Propofol 100 ml @ 2.045 mls/ hr Q12H IV Last administered on 01/12/17 08:16; Admin Dose 10.227 MLS/HR; Start 01/11/17 at 01:30 Vancomycin HCl (Vancocin) 250 ml @ 125 mls/hr Q24H IVPB Last administered on 09:30; Admin Dose 125 MLS/HR; Start 01/11/17 at 09:00 Enoxaparin Sodium 70 mg 70 mg Q12 SC Last administered on 01/14/17 09:29; Admin Dose 70 MG; Start 01/11/17 at 12:30 Meropenem/Sodium Chloride 50 ml @ 100 mls/hr Q12 IVPB Last administered on 09:34; Admin Dose 100 MLS/HR; Start 01/11/17 at 14:30 Phenylephrine HCl/ Dextrose (Baudilio-Syneph/D5W) 250 ml @ 10 mls/hr TITRATE IV Last administered on 01/12/17 06:18; Admin Dose 7.5 MLS/HR; Start 01/12/17 at 06:00 Mupirocin (Bactroban) 1 applic BID TOP Last administered on 01/14/17 09:34; Admin Dose 1 APPLIC; Start 01/12/17 at 13:00 Morphine Sulfate (morphine) 1 mg Q4H PRN IV PAIN Last administered on 03:36; Admin Dose 1 MG; Start 01/12/17 at 19:00 Diagnostic Test (Pha) (Accu-Chek) 1 ea 02 XX ; Start 01/14/17 at 02:00 Insulin Aspart (Novolog Insulin Pen) NOVOLOG *MILD* ALGORI... Q4 SC Last administered on 01/13/17 17:00; Admin Dose 2 UNIT; Start 01/13/17 at 09:00 Miscellaneous Information 1 ea NOTE XX ; Start 01/13/17 at 07:00 Glucose (Glutose) 15 gm Q15M PRN PO DECREASED GLUCOSE; Start 01/13/17 at 07:00 Glucose (Glutose) 22.5 gm Q15M PRN PO DECREASED GLUCOSE; Start 01/13/17 at 07: 00 Dextrose (D50w Syringe) 25 ml Q15M PRN IV DECREASED GLUCOSE; Start 01/13/17 at 07:00 Dextrose (D50w Syringe) 50 ml Q15M PRN IV DECREASED GLUCOSE; Start 01/13/17 at 07:00 Glucagon (Glucagen) 1 mg Q15M PRN IM DECREASED GLUCOSE; Start 01/13/17 at 07:00 Glucose (Glutose) 15 gm Q15M PRN BUCCAL DECREASED GLUCOSE; Start 01/13/17 at 07 :00 Carvedilol 3.125 mg 3.125 mg BID NGT Last administered on 01/14/17 09:29; Admin Dose 3.125 MG; Start 01/13/17 at 09:00 Dextrose 1,000 ml @ 50 mls/hr Q20H IV Last administered on 01/14/17 09:30; Admin Dose 50 MLS/HR; Start 01/14/17 at 08:00 Midazolam HCl 50 ml @ 1 mls/hr TITRATE IV Last administered on 01/14/17 12:38 ; Admin Dose 1 MLS/HR; Start 01/14/17 at 12:00 Fentanyl (Sublimaze) 100 ml @ 2.5 mls/hr TITRATE IV Last administered on 13:30; Admin Dose 2.5 MLS/HR; Start 01/14/17 at 13:00 Nystatin (Nystatin Powder) 1 applic BID TOP Last administered on 01/14/17 16: 00; Admin Dose 1 APPLIC; Start 01/14/17 at 15:00 Acetazolamide (Diamox) 500 mg ONCE ONCE IV ; Start 01/14/17 at 17:00; Stop at 17:01; Status UNV Assessment/Plan Chief Complaint/Hosp Course 1. shock: cardiogenic and probably septic combination : BP has improved now 2. CHF: acute on chronic probably due to systolic and diastolic heart failure 3. acute hypoxemic/ hypercapnic resp failure: s/ p re-intubation now 4. Afib with RVR 5. HX CAD 6/ HX PCI RCA 2009 7. HX HTN: now hypotensive 8. hyper K: corrected now 9. hx CLL 10. ANEMIA 11. Lactic acidosis 12. dyslipidemia 13./ hx DVT ( treated with XARELTO at home) 14. severe cardiomyopathy now with EF 20% (. EF was 50-55% on 01/01/17 per review of old records) REC: cont ICU care and vent support for now. PULM CONSULT input is greatly appreciated. will give dig today and check level in AM off off NEOSYNERPHRINE DRIP now. ECHO shows severe LV dysfunction now. will consider ischemic work up once more stable . will cont coreg and inc as tolerated. CONT ICU CARE. diuresis prn. will give a dose of Diamox. thank you. CHINO MERCEDES MD [facility] Problems: CHINO MERCEDES MD Jan 14, 2017 16:41
[2017-01-14] MEDS ORDERED: ACETAZOLAMIDE 500 MG INJ IV ONE ×2 (17:00)
[2017-01-14] MEDS ORDERED: DIGOXIN 500 MCG INJ IV ONE (17:00)
--- NOTE | 2017-01-14 23:32 | CONS ---
Date/Time of Note Date/Time of Note DATE: 01/14/17 TIME: 23:32 Assessment/Plan Assessment/Plan Chief Complaint/Hosp Course CLL- ON TREATMENT RECORD NO AVAILABLE OBTAIN AND REVIEW RECORD TREATMENT - ON HOLD Respiratory failure. Septic shock. Acute decompensated heart failure. Nonoliguric acute kidney injury with unknown baseline creatinine. Etiology secondary to septic acute kidney injury, acute tubular necrosis. Anemia. Monitor H and H levels. Transfuse as needed. Mineral bone disorder. Diabetes. Continue Accu-Cheks and sliding scale. Coronary artery disease. Pulmonary hypertension. Pleural effusions with history of PleurX catheter, currently nonfunctional. Problems: Consultation Date/Type/Reason Admit Date/Time Jan 10, 2017 at 23:15 Initial Consult Date 01/11/17 Type of Consultation: hemeon 24 HR Interval Summary Free Text/Dictation Breathing significantly labored this morning. More somnolent. Hypoxemia is worse. Exam/Review of Systems Vital Signs Vitals Vital Signs Date Time Temp Pulse Resp B/P Pulse Ox O2 Delivery O2 Flow Rate FiO2 01/14/17 22:30 95 16 105/51 100 01/14/17 21:43 40 01/14/17 19:30 97.8 01/14/17 18:00 Mechanical Ventilator 01/14/17 08:36 4.0 Intake and Output 01/13/17 01/13/17 01/14/17 15:00 23:00 07:00 Intake Total 376.66 ml 50 ml Output Total 220 ml 860 ml 320 ml Balance 156.66 ml -810 ml -320 ml Exam Exam HEENT dry mucous membranes pupils equal react to light Cardiac S1-S2 2 6 ejection systolic murmur. Respiratory diminished air entry bilaterally but no rales or wheezes: Abdomen: Soft nontender no guarding or rebound Extremities: No cyanosis clubbing edema Neuro: No focal deficits. Results Result Diagram: 01/14/17 0520 01/14/17 0520 Results 24 hrs Laboratory Tests Test 01/14/17 01:16 01/14/17 05:20 01/14/17 05:32 01/14/17 07:00 Bedside Glucose 97 95 White Blood Count 5.4 Red Blood Count 2.91 L Hemoglobin 8.5 L Hematocrit 28.8 L Mean Corpuscular Volume 99.0 Mean Corpuscular Hemoglobin 29.2 Mean Corpuscular Hemoglobin Concent 29.5 L Red Cell Distribution Width 15.2 H Platelet Count 199 Mean Platelet Volume 9.7 Neutrophils % Segmented Neutrophils % (Manual) 31 L Band Neutrophils % (Manual) 1 Lymphocytes % Lymphocytes % (Manual) 57 H Reactive Lymphocytes % (Manual) 1 H Monocytes % Monocytes % (Manual) 9 Eosinophils % Eosinophils % (Manual) 1 Basophils % Nucleated Red Blood Cells % 0.0 Neutrophils # Neutrophils # (Manual) 1.7 Band Neutrophils # 0.0 Absolute Lymphocytes (Manual) 3.0 H Lymphocytes # Reactive Lymphocytes # 0.0 Monocytes # Absolute Monocytes (Manual) 0.4 Eosinophils # Basophils # Nucleated Red Blood Cells # Platelet Estimate NORMAL Giant Platelets 1 H Polychromasia 1+ Poikilocytosis 1+ Anisocytosis 1+ Microcytosis 1+ Sodium Level 142 Potassium Level 3.8 Chloride Level 101 Carbon Dioxide Level 36 H Anion Gap 9 Blood Urea Nitrogen 21 H Creatinine 1.21 H Glucose Level 96 Calcium Level 9.2 Magnesium Level 2.1 Total Bilirubin 0.2 Direct Bilirubin 0.00 Indirect Bilirubin 0.2 Aspartate Amino Transf (AST/SGOT) 31 Alanine Aminotransferase (ALT/SGPT) 27 Alkaline Phosphatase 70 B-Type Natriuretic Peptide 3970 H Total Protein 5.6 L Albumin 3.3 Globulin 2.30 Albumin/Globulin Ratio 1.43 Digoxin Level 1.2 Blood Gas Specimen Source Blood arterial Arterial Blood Date Drawn 01/14/2017 7:20:59 AM Arterial Blood pH (Temp corrected) 7.403 Arterial Blood pCO2 (Temp correct) 53.9 H Arterial Blood pO2 (Temp corrected) 151.7 H Arterial Blood HCO3 32.9 H Arterial Blood Base Excess 7.0 H Arterial Blood Oxygen Saturation 98.6 Blayne Test ACCEPTAB Arterial Blood Gas Puncture Site Right Radial Arterial Blood Carboxyhemoglobin 0.3 Arterial Blood Methemoglobin 0.2 Blood Gas A-a O2 Differential 71.5 H Oxyhemoglobin Percent 98.1 Total Hemoglobin 9.8 L Blood Gas Temperature 37.0 Blood Gas Respiration Rate 20.0 Blood Gas Actual Respiration Rate 22 Blood Gas Modality MASK - BIPAP FiO2 40.0 Blood Gas IPAP/EPAP Ratio 18 Blood Gas Notified Whom CW Blood Gas Notified Time 01/14/2017 8:17:00 AM Test 01/14/17 09:32 01/14/17 12:30 01/14/17 13:24 01/14/17 18:12 Bedside Glucose 118 116 93 Blood Gas Specimen Source Blood arterial Arterial Blood Date Drawn 01/14/2017 12:35:55 PM Arterial Blood pH (Temp corrected) 7.428 Arterial Blood pCO2 (Temp correct) 52.2 H Arterial Blood pO2 (Temp corrected) 341.1 H Arterial Blood HCO3 33.7 H Arterial Blood Base Excess 8.1 H Arterial Blood Oxygen Saturation 99.4 Blayne Test N/A Arterial Blood Gas Puncture Site Right Brachial Arterial Blood Carboxyhemoglobin 0.3 Arterial Blood Methemoglobin 0.3 Blood Gas A-a O2 Differential 319.7 H Oxyhemoglobin Percent 98.8 Total Hemoglobin 11.4 L Blood Gas Temperature 37.0 Blood Gas Modality VENT - AC FiO2 100.0 Blood Gas Tidal Volume 400.0 Blood Gas Low PEEP Setting 5.0 Blood Gas Notified Whom CW Blood Gas Notified Time 01/14/2017 12:50:00 PM Test 01/14/17 20:16 Bedside Glucose 118 Medications Medications Current Medications Propofol 100 ml @ 2.045 mls/ hr Q12H IV Last administered on 01/12/17 08:16; Admin Dose 10.227 MLS/HR; Start 01/11/17 at 01:30 Vancomycin HCl (Vancocin) 250 ml @ 125 mls/hr Q24H IVPB Last administered on 09:30; Admin Dose 125 MLS/HR; Start 01/11/17 at 09:00 Enoxaparin Sodium 70 mg 70 mg Q12 SC Last administered on 01/14/17 20:14; Admin Dose 70 MG; Start 01/11/17 at 12:30 Meropenem/Sodium Chloride 50 ml @ 100 mls/hr Q12 IVPB Last administered on 20:12; Admin Dose 100 MLS/HR; Start 01/11/17 at 14:30 Phenylephrine HCl/ Dextrose (Baudilio-Syneph/D5W) 250 ml @ 10 mls/hr TITRATE IV Last administered on 01/12/17 06:18; Admin Dose 7.5 MLS/HR; Start 01/12/17 at 06:00 Mupirocin (Bactroban) 1 applic BID TOP Last administered on 01/14/17 20:16; Admin Dose 1 APPLIC; Start 01/12/17 at 13:00 Morphine Sulfate (morphine) 1 mg Q4H PRN IV PAIN Last administered on 03:36; Admin Dose 1 MG; Start 01/12/17 at 19:00 Diagnostic Test (Pha) (Accu-Chek) 1 ea 02 XX ; Start 01/14/17 at 02:00 Insulin Aspart (Novolog Insulin Pen) NOVOLOG *MILD* ALGORI... Q4 SC Last administered on 01/13/17 17:00; Admin Dose 2 UNIT; Start 01/13/17 at 09:00 Miscellaneous Information 1 ea NOTE XX ; Start 01/13/17 at 07:00 Glucose (Glutose) 15 gm Q15M PRN PO DECREASED GLUCOSE; Start 01/13/17 at 07:00 Glucose (Glutose) 22.5 gm Q15M PRN PO DECREASED GLUCOSE; Start 01/13/17 at 07: 00 Dextrose (D50w Syringe) 25 ml Q15M PRN IV DECREASED GLUCOSE; Start 01/13/17 at 07:00 Dextrose (D50w Syringe) 50 ml Q15M PRN IV DECREASED GLUCOSE; Start 01/13/17 at 07:00 Glucagon (Glucagen) 1 mg Q15M PRN IM DECREASED GLUCOSE; Start 01/13/17 at 07:00 Glucose (Glutose) 15 gm Q15M PRN BUCCAL DECREASED GLUCOSE; Start 01/13/17 at 07 :00 Carvedilol 3.125 mg 3.125 mg BID NGT Last administered on 01/14/17 09:29; Admin Dose 3.125 MG; Start 01/13/17 at 09:00 Dextrose 1,000 ml @ 50 mls/hr Q20H IV Last administered on 01/14/17 09:30; Admin Dose 50 MLS/HR; Start 01/14/17 at 08:00 Midazolam HCl 50 ml @ 1 mls/hr TITRATE IV Last administered on 01/14/17 12:38 ; Admin Dose 1 MLS/HR; Start 01/14/17 at 12:00 Fentanyl (Sublimaze) 100 ml @ 2.5 mls/hr TITRATE IV Last administered on 13:30; Admin Dose 2.5 MLS/HR; Start 01/14/17 at 13:00 Nystatin (Nystatin Powder) 1 applic BID TOP Last administered on 9/22/17at 22: 55; Admin Dose 1 APPLIC; Start 01/14/17 at 15:00 SE RAY MD Jan 14, 2017 23:32
[2017-01-15] VITALS (37 sets, daily range): BP systolic 81–107; BP diastolic 39–60; PULSE 81–99; RESP 14–16
[2017-01-15] MEDS: INSULIN ASPART [NOVOLOG] 3 ML PEN SC SCH ×6 (00:49→20:32)
[2017-01-15] MEDS: ACCU-CHEK XX SCH (00:50)
[2017-01-15] MEDS: PROPOFOL 100 ML IV SCH ×2 (00:50→13:30)
[2017-01-15] MEDS: FENTAnyl (DRIP) 1000 mcg/100mL 100 ML IV SCH (02:08)
[2017-01-15] MEDS: MIDAZOLAM (DRIP) 50 mg/50 mL 50 ML IV SCH (02:08)
[2017-01-15] MEDS: DEXTROSE 5% 1,000 ML IV SCH (03:05)
[2017-01-15 05:57] LABS: ABNORMAL IP MESSAGE 1; BASOPHILS % 0.2 % (0.0-2.0); EOSINOPHILS % 0.4 % (0.0-7.0); HEMATOCRIT 27.1 % (37.0-47.0); HEMOGLOBIN 7.9 g/dl (12.0-16.0); LYMPHOCYTES # 2.7 10^3/ul (0.8-2.9); LYMPHOCYTES % 50.5 % (15.0-51.0); MEAN CORPUSCULAR HEMOGLOBIN 28.6 pg (29.0-33.0); MEAN CORPUSCULAR HGB CONC 29.2 g/dl (32.0-37.0); MEAN CORPUSCULAR VOLUME 98.2 fl (82.0-101.0); MONOCYTES % 19.6 % (0.0-11.0); NEUTROPHIL # 1.1 10^3/ul (1.6-7.5); NEUTROPHILS % 21.1 % (39.0-77.0); PLATELET COUNT 184 10^3/UL (140-415); RED BLOOD COUNT 2.76 10^6/ul (4.20-5.40); RED CELL DISTRIBUTION WIDTH 15.5 % (11.5-14.5); WHITE BLOOD COUNT 5.3 10^3/ul (4.8-10.8)
[2017-01-15 05:59] LABS: POSITIVE DIFF @See below
[2017-01-15 06:28] LABS: CALCIUM 8.6 mg/dl (8.4-10.2); CREATININE 1.1 mg/dl (0.44-1.00); PHOSPHORUS 3.3 mg/dl (2.5-4.9); POTASSIUM 3.6 mmol/L (3.5-5.1)
--- NOTE | 2017-01-15 08:34 | PN ---
DATE: 01/15/2017 SUBJECTIVE DATA: The patient yesterday had to be reintubated as she remained tachypneic. Overnight, no other events noted. No hemoptysis, hematemesis, hematochezia. OBJECTIVE DATA: Blood pressure is 100/55, respirations 16, pulse 90, temperature 99.0. Is and Os: 1.8 L in, 900 out. HEENT: Head is normocephalic. NECK: Supple. HEART: Regular rate. LUNGS: Diminished breath sounds at the base. ABDOMEN: Soft, nontender to palpation. No rebound or guarding. EXTREMITIES: Negative for clubbing, cyanosis. No edema. DERMATOLOGIC: No rashes. MUSCULOSKELETAL: No joint effusion. NEUROLOGIC: No change in exam. MEDICATIONS: Patient's medications have been reviewed. LABORATORY AND DIAGNOSTIC DATA: Shows sodium 141, potassium 3.6, chloride 101, bicarb 33, BUN 23, creatinine 1.10. White count 5.3, hemoglobin 7.9, hematocrit 27.1, platelet count is 184. ASSESSMENT AND PLAN: Acute hypoxemic. 1. Ventilatory-dependent respiratory failure. The patient was reintubated due to respiratory distress. The patient's ABG and vent settings reviewed. Follow up with Pulmonary. 2. Sepsis, status post shock. The patient currently is on broad-spectrum antibiotics. Continue. 3. Acute decompensated heart failure. The patient is being followed by Cardiology. Continue medical management. Continue diuretics per Cardiology. 4. Nonoliguric acute kidney injury with unknown baseline creatinine. Etiology is likely secondary to septic acute kidney injury, acute tubular necrosis. Renal function appears to have stabilized. Continue current treatment plan. Supportive care. Renally dose all meds. 5. Anemia. Hemoglobin levels are have decreased. Will repeat H and H monitor closely. Will transfuse as needed. 6. Mineral bone disorder. Monitor calcium and phosphorus levels. 7. Diabetes. Continue Accu-Cheks and sliding scale. 8. Chronic lymphocytic leukemia. Continue to monitor. Follow up with Hematology. 9. Coronary artery disease. Continue medical management. 10. History of lower extremity deep vein thrombosis. Continue Lovenox. 11. Pulmonary hypertension. Continue current treatment plan. 12. Pleural effusions with a history of PleurX catheter, currently nonfunctional. Continue to monitor. 13. Gastrointestinal and deep venous thrombosis prophylaxis. Please note, I spent over 30 minutes of critical care time with this patient. Dictated By: Timo Mccracken DO /[email or web address] /Document#: [id number]
[2017-01-15] MEDS: NYSTATIN 30 GM POWDER BTL TOP SCH ×2 (08:53→20:29)
[2017-01-15] MEDS: MUPIROCIN 2% 22 GM OINT TOP SCH ×2 (08:53→20:30)
--- NOTE | 2017-01-15 08:53 | CONS ---
Date/Time of Note Date/Time of Note DATE: 01/15/17 TIME: 08:52 Assessment/Plan Assessment/Plan Chief Complaint/Hosp Course 1. shock: cardiogenic and probably septic combination : BP has improved now 2. CHF: acute on chronic probably due to systolic and diastolic heart failure 3. acute hypoxemic/ hypercapnic resp failure: s/ p re-intubation now 4. Afib with RVR, improved rate control 5. HX CAD 6/ HX PCI RCA 2009 7. HX HTN: now hypotensive 8. hyper K: corrected now 9. hx CLL 10. ANEMIA 11. Lactic acidosis 12. dyslipidemia 13./ hx DVT ( treated with XARELTO at home) 14. severe cardiomyopathy now with EF 20% (. EF was 50-55% on 01/01/17 per review of old records) Problems: Additional Assessment/Plan 1) tolerates low dose of coreg 2) will not start CANDY at this time given hypotension 3) off dig with level of 1.5 Consultation Date/Type/Reason Admit Date/Time Jan 10, 2017 at 23:15 Initial Consult Date 01/11/17 Type of Consultation: cv 24 HR Interval Summary Free Text/Dictation on vent Subjective hx not possible: pt non-verbal, pt critical Exam/Review of Systems Vital Signs Vitals Vital Signs Date Time Temp Pulse Resp B/P Pulse Ox O2 Delivery O2 Flow Rate FiO2 01/15/17 08:00 99.3 92 16 95/46 100 Mechanical Ventilator 01/15/17 05:30 40 01/14/17 08:36 4.0 Intake and Output 01/14/17 01/14/17 01/15/17 15:00 23:00 07:00 Intake Total 690.0 ml 321 ml 820 ml Output Total 375 ml 505 ml 30 ml Balance 315.0 ml -184 ml 790 ml Exam Constitutional: non-verbal Neck: jvd Respiratory: diminished breath sounds Cardiovascular: irregular rhythm Gastrointestinal: soft Musculoskeletal: nl extremities to inspection Extremities: edema Neurological: SHOP FOREMAN II-XII intact Skin: nl turgor Results Result Diagram: 01/15/17 0510 01/15/17 0510 Results 24 hrs Laboratory Tests Test 01/14/17 09:32 01/14/17 12:30 01/14/17 13:24 01/14/17 18:12 Bedside Glucose 118 116 93 Blood Gas Specimen Source Blood arterial Arterial Blood Date Drawn 01/14/2017 12:35:55 PM Arterial Blood pH (Temp corrected) 7.428 Arterial Blood pCO2 (Temp correct) 52.2 H Arterial Blood pO2 (Temp corrected) 341.1 H Arterial Blood HCO3 33.7 H Arterial Blood Base Excess 8.1 H Arterial Blood Oxygen Saturation 99.4 Blayne Test N/A Arterial Blood Gas Puncture Site Right Brachial Arterial Blood Carboxyhemoglobin 0.3 Arterial Blood Methemoglobin 0.3 Blood Gas A-a O2 Differential 319.7 H Oxyhemoglobin Percent 98.8 Total Hemoglobin 11.4 L Blood Gas Temperature 37.0 Blood Gas Modality VENT - AC FiO2 100.0 Blood Gas Tidal Volume 400.0 Blood Gas Low PEEP Setting 5.0 Blood Gas Notified Whom CW Blood Gas Notified Time 01/14/2017 12:50:00 PM Test 01/14/17 20:16 01/15/17 00:45 01/15/17 04:31 01/15/17 05:10 Bedside Glucose 118 134 130 White Blood Count 5.3 Red Blood Count 2.76 L Hemoglobin 7.9 L Hematocrit 27.1 L Mean Corpuscular Volume 98.2 Mean Corpuscular Hemoglobin 28.6 L Mean Corpuscular Hemoglobin Concent 29.2 L Red Cell Distribution Width 15.5 H Platelet Count 184 Mean Platelet Volume 10.0 Neutrophils % 21.1 L Lymphocytes % 50.5 Monocytes % 19.6 H Eosinophils % 0.4 Basophils % 0.2 Nucleated Red Blood Cells % 0.0 Neutrophils # 1.1 L Lymphocytes # 2.7 Monocytes # 1.0 H Eosinophils # 0.0 Basophils # 0.0 Nucleated Red Blood Cells # 0.0 Sodium Level 141 Potassium Level 3.6 Chloride Level 101 Carbon Dioxide Level 33 H Anion Gap 11 Blood Urea Nitrogen 23 H Creatinine 1.10 H Glucose Level 115 Calcium Level 8.6 Phosphorus Level 3.3 Magnesium Level 2.0 B-Type Natriuretic Peptide 4320 H Digoxin Level 1.5 Medications Medications Current Medications Propofol 100 ml @ 2.045 mls/ hr Q12H IV Last administered on 01/12/17 08:16; Admin Dose 10.227 MLS/HR; Start 01/11/17 at 01:30 Vancomycin HCl (Vancocin) 250 ml @ 125 mls/hr Q24H IVPB Last administered on 09:30; Admin Dose 125 MLS/HR; Start 01/11/17 at 09:00 Enoxaparin Sodium 70 mg 70 mg Q12 SC Last administered on 01/14/17 20:14; Admin Dose 70 MG; Start 01/11/17 at 12:30 Meropenem/Sodium Chloride 50 ml @ 100 mls/hr Q12 IVPB Last administered on 20:12; Admin Dose 100 MLS/HR; Start 01/11/17 at 14:30 Phenylephrine HCl/ Dextrose (Baudilio-Syneph/D5W) 250 ml @ 10 mls/hr TITRATE IV Last administered on 01/12/17 06:18; Admin Dose 7.5 MLS/HR; Start 01/12/17 at 06:00 Mupirocin (Bactroban) 1 applic BID TOP Last administered on 01/14/17 20:16; Admin Dose 1 APPLIC; Start 01/12/17 at 13:00 Morphine Sulfate (morphine) 1 mg Q4H PRN IV PAIN Last administered on 03:36; Admin Dose 1 MG; Start 01/12/17 at 19:00 Diagnostic Test (Pha) (Accu-Chek) 1 ea 02 XX Last administered on 01/15/17 00: 50; Admin Dose 1 EA; Start 01/14/17 at 02:00 Insulin Aspart (Novolog Insulin Pen) NOVOLOG *MILD* ALGORI... Q4 SC Last administered on 01/13/17 17:00; Admin Dose 2 UNIT; Start 01/13/17 at 09:00 Miscellaneous Information 1 ea NOTE XX ; Start 01/13/17 at 07:00 Glucose (Glutose) 15 gm Q15M PRN PO DECREASED GLUCOSE; Start 01/13/17 at 07:00 Glucose (Glutose) 22.5 gm Q15M PRN PO DECREASED GLUCOSE; Start 01/13/17 at 07: 00 Dextrose (D50w Syringe) 25 ml Q15M PRN IV DECREASED GLUCOSE; Start 01/13/17 at 07:00 Dextrose (D50w Syringe) 50 ml Q15M PRN IV DECREASED GLUCOSE; Start 01/13/17 at 07:00 Glucagon (Glucagen) 1 mg Q15M PRN IM DECREASED GLUCOSE; Start 01/13/17 at 07:00 Glucose (Glutose) 15 gm Q15M PRN BUCCAL DECREASED GLUCOSE; Start 01/13/17 at 07 :00 Carvedilol 3.125 mg 3.125 mg BID NGT Last administered on 01/14/17 09:29; Admin Dose 3.125 MG; Start 01/13/17 at 09:00 Midazolam HCl 50 ml @ 1 mls/hr TITRATE IV Last administered on 01/15/17 02:08 ; Admin Dose 2 MLS/HR; Start 01/14/17 at 12:00 Fentanyl (Sublimaze) 100 ml @ 2.5 mls/hr TITRATE IV Last administered on 02:08; Admin Dose 5 MLS/HR; Start 01/14/17 at 13:00 Nystatin (Nystatin Powder) 1 applic BID TOP Last administered on 01/14/17 22: 55; Admin Dose 1 APPLIC; Start 01/14/17 at 15:00 UNA MORRIS MD Jan 15, 2017 08:53
[2017-01-15] MEDS: BALSAM PERU/CASTOR OIL 60 GM TUBE TOP SCH ×2 (08:54→20:29)
[2017-01-15] MEDS: ENOXAPARIN 80 MG/0.8 ML SYG SC SCH ×2 (08:57→20:35)
[2017-01-15] MEDS: MEROPENEM 500MG/50 ML (PMX) 50 ML IVPB SCH ×2 (08:59→20:29)
[2017-01-15] MEDS: VANCOMYCIN 1 GM in NS 250 ML IVPB SCH (10:10)
--- NOTE | 2017-01-15 10:46 | CONS ---
Date/Time of Note Date/Time of Note DATE: 01/15/17 TIME: 10:43 Assessment/Plan Assessment/Plan Chief Complaint/Hosp Course Consult dictated #[id number] Problems: Additional Assessment/Plan Data setting; AC of 16, tidal volume 400, PEEP of 0, 40% FiO2. Patient currently on Versed 2 mg/h, fentanyl 25 mics per hour. Assessment and recommendations; 1. Patient admitted with respiratory failure due to combination of pneumonia and CHF. Had to be reintubated yesterday afternoon for respiratory failure. 2. History of chronic lymphocytic leukemia. 3. History of recurrent pleural effusion status post right Pleurx catheter placement. However chest x-ray findings are not showing any significant pleural fluid accumulation. 4. Generalized deconditioning. 5. Anemia. Continue current treatment. Prognosis is guarded. Patient currently not in a position to be weaned off from mechanical ventilation. Obtain follow-up chest x -ray. Consultation Date/Type/Reason Admit Date/Time Jan 10, 2017 at 23:15 Initial Consult Date 01/11/17 Type of Consultation: Pulmonary/critical care 24 HR Interval Summary Free Text/Dictation Patient condition remains critical. Had to be reintubated yesterday for worsening respiratory status. Patient despite being on sedation is arousable and responsive. General exam; elderly woman, orally intubated, awake, currently in no distress. Exam/Review of Systems Vital Signs Vitals Vital Signs Date Time Temp Pulse Resp B/P Pulse Ox O2 Delivery O2 Flow Rate FiO2 01/15/17 10:00 92 16 98/48 100 Mechanical Ventilator 01/15/17 08:00 40 01/15/17 08:00 99.3 01/14/17 08:36 4.0 Intake and Output 01/14/17 01/14/17 01/15/17 15:00 23:00 07:00 Intake Total 690.0 ml 321 ml 827 ml Output Total 375 ml 505 ml 30 ml Balance 315.0 ml -184 ml 797 ml Exam HEENT exam; supple neck, positive JVD. No lymphadenopathy. Midline trachea. No thyromegaly. Orally intubated. Patient is edentulous. Has bilateral intraocular lens implants. Chest exam; diminished breath sounds in lung bases bilaterally. S1-S2 audible, no murmurs. Regular rhythm. There is a Pleurx catheter involving the right lateral chest wall. Abdomen exam; soft, nondistended. Nontender. Bowel sounds audible. Extremity exam; no edema. PATIENT FINANCIAL COORDINATOR exam; patient is awake and somewhat responsive. Results Result Diagram: 01/15/17 0510 01/15/17 0510 Results 24 hrs Laboratory Tests Test 01/14/17 12:30 01/14/17 13:24 01/14/17 18:12 01/14/17 20:16 Blood Gas Specimen Source Blood arterial Arterial Blood Date Drawn 01/14/2017 12:35:55 PM Arterial Blood pH (Temp corrected) 7.428 Arterial Blood pCO2 (Temp correct) 52.2 H Arterial Blood pO2 (Temp corrected) 341.1 H Arterial Blood HCO3 33.7 H Arterial Blood Base Excess 8.1 H Arterial Blood Oxygen Saturation 99.4 Blayne Test N/A Arterial Blood Gas Puncture Site Right Brachial Arterial Blood Carboxyhemoglobin 0.3 Arterial Blood Methemoglobin 0.3 Blood Gas A-a O2 Differential 319.7 H Oxyhemoglobin Percent 98.8 Total Hemoglobin 11.4 L Blood Gas Temperature 37.0 Blood Gas Modality VENT - AC FiO2 100.0 Blood Gas Tidal Volume 400.0 Blood Gas Low PEEP Setting 5.0 Blood Gas Notified Whom CW Blood Gas Notified Time 01/14/2017 12:50:00 PM Bedside Glucose 116 93 118 Test 01/15/17 00:45 01/15/17 04:31 01/15/17 05:10 01/15/17 10:19 Bedside Glucose 134 130 164 White Blood Count 5.3 Red Blood Count 2.76 L Hemoglobin 7.9 L Hematocrit 27.1 L Mean Corpuscular Volume 98.2 Mean Corpuscular Hemoglobin 28.6 L Mean Corpuscular Hemoglobin Concent 29.2 L Red Cell Distribution Width 15.5 H Platelet Count 184 Mean Platelet Volume 10.0 Neutrophils % 21.1 L Lymphocytes % 50.5 Monocytes % 19.6 H Eosinophils % 0.4 Basophils % 0.2 Nucleated Red Blood Cells % 0.0 Neutrophils # 1.1 L Lymphocytes # 2.7 Monocytes # 1.0 H Eosinophils # 0.0 Basophils # 0.0 Nucleated Red Blood Cells # 0.0 Sodium Level 141 Potassium Level 3.6 Chloride Level 101 Carbon Dioxide Level 33 H Anion Gap 11 Blood Urea Nitrogen 23 H Creatinine 1.10 H Glucose Level 115 Calcium Level 8.6 Phosphorus Level 3.3 Magnesium Level 2.0 B-Type Natriuretic Peptide 4320 H Digoxin Level 1.5 Medications Medications Current Medications Propofol 100 ml @ 2.045 mls/ hr Q12H IV Last administered on 01/12/17 08:16; Admin Dose 10.227 MLS/HR; Start 01/11/17 at 01:30 Vancomycin HCl (Vancocin) 250 ml @ 125 mls/hr Q24H IVPB Last administered on 10:10; Admin Dose 125 MLS/HR; Start 01/11/17 at 09:00 Enoxaparin Sodium 70 mg 70 mg Q12 SC Last administered on 01/15/17 08:57; Admin Dose 70 MG; Start 01/11/17 at 12:30 Meropenem/Sodium Chloride 50 ml @ 100 mls/hr Q12 IVPB Last administered on 08:59; Admin Dose 100 MLS/HR; Start 01/11/17 at 14:30 Phenylephrine HCl/ Dextrose (Baudilio-Syneph/D5W) 250 ml @ 10 mls/hr TITRATE IV Last administered on 01/12/17 06:18; Admin Dose 7.5 MLS/HR; Start 01/12/17 at 06:00 Mupirocin (Bactroban) 1 applic BID TOP Last administered on 01/15/17 08:53; Admin Dose 1 APPLIC; Start 01/12/17 at 13:00 Morphine Sulfate (morphine) 1 mg Q4H PRN IV PAIN Last administered on 03:36; Admin Dose 1 MG; Start 01/12/17 at 19:00 Diagnostic Test (Pha) (Accu-Chek) 1 ea 02 XX Last administered on 01/15/17 00: 50; Admin Dose 1 EA; Start 01/14/17 at 02:00 Insulin Aspart (Novolog Insulin Pen) NOVOLOG *MILD* ALGORI... Q4 SC Last administered on 01/15/17 10:21; Admin Dose 1 UNIT; Start 01/13/17 at 09:00 Miscellaneous Information 1 ea NOTE XX ; Start 01/13/17 at 07:00 Glucose (Glutose) 15 gm Q15M PRN PO DECREASED GLUCOSE; Start 01/13/17 at 07:00 Glucose (Glutose) 22.5 gm Q15M PRN PO DECREASED GLUCOSE; Start 01/13/17 at 07: 00 Dextrose (D50w Syringe) 25 ml Q15M PRN IV DECREASED GLUCOSE; Start 01/13/17 at 07:00 Dextrose (D50w Syringe) 50 ml Q15M PRN IV DECREASED GLUCOSE; Start 01/13/17 at 07:00 Glucagon (Glucagen) 1 mg Q15M PRN IM DECREASED GLUCOSE; Start 01/13/17 at 07:00 Glucose (Glutose) 15 gm Q15M PRN BUCCAL DECREASED GLUCOSE; Start 01/13/17 at 07 :00 Carvedilol 3.125 mg 3.125 mg BID NGT Last administered on 01/14/17 09:29; Admin Dose 3.125 MG; Start 01/13/17 at 09:00 Midazolam HCl 50 ml @ 1 mls/hr TITRATE IV Last administered on 01/15/17 02:08 ; Admin Dose 2 MLS/HR; Start 01/14/17 at 12:00 Fentanyl (Sublimaze) 100 ml @ 2.5 mls/hr TITRATE IV Last administered on 02:08; Admin Dose 5 MLS/HR; Start 01/14/17 at 13:00 Nystatin (Nystatin Powder) 1 applic BID TOP Last administered on 01/15/17 08: 53; Admin Dose 1 APPLIC; Start 01/14/17 at 15:00 RADHA CAMACHO Jan 15, 2017 10:46
[2017-01-15] MEDS ORDERED: FLUCONAZOLE 100 MG TAB PO ONE (12:30)
[2017-01-15 15:27] LABS: HEMOGLOBIN 8.3 g/dl (12.0-16.0)
--- NOTE | 2017-01-15 18:59 | CONS ---
Date/Time of Note Date/Time of Note DATE: 01/15/17 TIME: 18:58 Assessment/Plan Assessment/Plan Chief Complaint/Hosp Course CLL- ON TREATMENT RECORD NO AVAILABLE OBTAIN AND REVIEW RECORD TREATMENT - ON HOLD Respiratory failure. Septic shock. Acute decompensated heart failure. Nonoliguric acute kidney injury with unknown baseline creatinine. Etiology secondary to septic acute kidney injury, acute tubular necrosis. Anemia. Monitor H and H levels. Transfuse as needed. Mineral bone disorder. Diabetes. Continue Accu-Cheks and sliding scale. Coronary artery disease. Pulmonary hypertension. Pleural effusions with history of PleurX catheter, currently nonfunctional. Problems: Consultation Date/Type/Reason Admit Date/Time Jan 10, 2017 at 23:15 Initial Consult Date 01/11/17 Type of Consultation: HEMEON 24 HR Interval Summary Free Text/Dictation ALL NOTED CRITICALLY ILL Exam/Review of Systems Vital Signs Vitals Vital Signs Date Time Temp Pulse Resp B/P Pulse Ox O2 Delivery O2 Flow Rate FiO2 01/15/17 18:30 89 16 90/45 100 Mechanical Ventilator 01/15/17 17:20 40 01/15/17 16:00 99.0 01/14/17 08:36 4.0 Intake and Output 01/14/17 01/14/17 01/15/17 15:00 23:00 07:00 Intake Total 690.0 ml 321 ml 827 ml Output Total 375 ml 505 ml 30 ml Balance 315.0 ml -184 ml 797 ml Exam HEENT: Head is normocephalic. NECK: Supple. HEART: Regular rate. LUNGS: Diminished breath sounds at the base. ABDOMEN: Soft, nontender to palpation. No rebound or guarding. EXTREMITIES: Negative for clubbing, cyanosis. No edema. DERMATOLOGIC: No rashes. MUSCULOSKELETAL: No joint effusion. NEUROLOGIC: No change in exam. Results Result Diagram: 01/15/17 1428 01/15/17 0510 Results 24 hrs Laboratory Tests Test 01/14/17 20:16 01/15/17 00:45 01/15/17 04:31 01/15/17 05:10 Bedside Glucose 118 134 130 White Blood Count 5.3 Red Blood Count 2.76 L Hemoglobin 7.9 L Hematocrit 27.1 L Mean Corpuscular Volume 98.2 Mean Corpuscular Hemoglobin 28.6 L Mean Corpuscular Hemoglobin Concent 29.2 L Red Cell Distribution Width 15.5 H Platelet Count 184 Mean Platelet Volume 10.0 Neutrophils % 21.1 L Lymphocytes % 50.5 Monocytes % 19.6 H Eosinophils % 0.4 Basophils % 0.2 Nucleated Red Blood Cells % 0.0 Neutrophils # 1.1 L Lymphocytes # 2.7 Monocytes # 1.0 H Eosinophils # 0.0 Basophils # 0.0 Nucleated Red Blood Cells # 0.0 Sodium Level 141 Potassium Level 3.6 Chloride Level 101 Carbon Dioxide Level 33 H Anion Gap 11 Blood Urea Nitrogen 23 H Creatinine 1.10 H Glucose Level 115 Calcium Level 8.6 Phosphorus Level 3.3 Magnesium Level 2.0 B-Type Natriuretic Peptide 4320 H Digoxin Level 1.5 Test 01/15/17 10:19 01/15/17 11:58 01/15/17 13:08 01/15/17 14:28 Bedside Glucose 164 148 163 Hemoglobin 8.3 L Hematocrit 27.0 L Test 01/15/17 17:16 Bedside Glucose 161 Medications Medications Current Medications Propofol 100 ml @ 2.045 mls/ hr Q12H IV Last administered on 01/12/17 08:16; Admin Dose 10.227 MLS/HR; Start 01/11/17 at 01:30 Vancomycin HCl (Vancocin) 250 ml @ 125 mls/hr Q24H IVPB Last administered on 10:10; Admin Dose 125 MLS/HR; Start 01/11/17 at 09:00 Enoxaparin Sodium 70 mg 70 mg Q12 SC Last administered on 01/15/17 08:57; Admin Dose 70 MG; Start 01/11/17 at 12:30 Meropenem/Sodium Chloride 50 ml @ 100 mls/hr Q12 IVPB Last administered on 08:59; Admin Dose 100 MLS/HR; Start 01/11/17 at 14:30 Phenylephrine HCl/ Dextrose (Baudilio-Syneph/D5W) 250 ml @ 10 mls/hr TITRATE IV Last administered on 01/12/17 06:18; Admin Dose 7.5 MLS/HR; Start 01/12/17 at 06:00 Mupirocin (Bactroban) 1 applic BID TOP Last administered on 01/15/17 08:53; Admin Dose 1 APPLIC; Start 01/12/17 at 13:00 Morphine Sulfate (morphine) 1 mg Q4H PRN IV PAIN Last administered on 03:36; Admin Dose 1 MG; Start 01/12/17 at 19:00 Diagnostic Test (Pha) (Accu-Chek) 1 ea 02 XX Last administered on 01/15/17 00: 50; Admin Dose 1 EA; Start 01/14/17 at 02:00 Insulin Aspart (Novolog Insulin Pen) NOVOLOG *MILD* ALGORI... Q4 SC Last administered on 01/15/17 17:29; Admin Dose 1 UNIT; Start 01/13/17 at 09:00 Miscellaneous Information 1 ea NOTE XX ; Start 01/13/17 at 07:00 Glucose (Glutose) 15 gm Q15M PRN PO DECREASED GLUCOSE; Start 01/13/17 at 07:00 Glucose (Glutose) 22.5 gm Q15M PRN PO DECREASED GLUCOSE; Start 01/13/17 at 07: 00 Dextrose (D50w Syringe) 25 ml Q15M PRN IV DECREASED GLUCOSE; Start 01/13/17 at 07:00 Dextrose (D50w Syringe) 50 ml Q15M PRN IV DECREASED GLUCOSE; Start 01/13/17 at 07:00 Glucagon (Glucagen) 1 mg Q15M PRN IM DECREASED GLUCOSE; Start 01/13/17 at 07:00 Glucose (Glutose) 15 gm Q15M PRN BUCCAL DECREASED GLUCOSE; Start 01/13/17 at 07 :00 Carvedilol 3.125 mg 3.125 mg BID NGT Last administered on 01/14/17 09:29; Admin Dose 3.125 MG; Start 01/13/17 at 09:00 Midazolam HCl 50 ml @ 1 mls/hr TITRATE IV Last administered on 01/15/17 02:08 ; Admin Dose 2 MLS/HR; Start 01/14/17 at 12:00 Fentanyl (Sublimaze) 100 ml @ 2.5 mls/hr TITRATE IV Last administered on 02:08; Admin Dose 5 MLS/HR; Start 01/14/17 at 13:00 Nystatin (Nystatin Powder) 1 applic BID TOP Last administered on 01/15/17 08: 53; Admin Dose 1 APPLIC; Start 01/14/17 at 15:00 Fluconazole (Diflucan) 100 mg DAILY PO ; Start 01/16/17 at 09:00 SE RAY MD Jan 15, 2017 18:59
[2017-01-16] VITALS (57 sets, daily range): BP systolic 81–117; BP diastolic 36–66; PULSE 64–95; RESP 15–28
[2017-01-16] MEDS: INSULIN ASPART [NOVOLOG] 3 ML PEN SC SCH ×6 (01:00→20:53)
[2017-01-16] MEDS: PROPOFOL 100 ML IV SCH ×2 (01:30→13:30)
[2017-01-16] MEDS: PHENYLephrine 40 MG in DEXTROSE 5% 246 ML IV SCH (01:35)
[2017-01-16] MEDS: ACCU-CHEK XX SCH (02:00)
[2017-01-16 05:50] LABS: ABNORMAL IP MESSAGE 1; HEMATOCRIT 27.6 % (37.0-47.0); HEMOGLOBIN 8.4 g/dl (12.0-16.0); MEAN CORPUSCULAR HEMOGLOBIN 29.1 pg (29.0-33.0); MEAN CORPUSCULAR HGB CONC 30.4 g/dl (32.0-37.0); MEAN CORPUSCULAR VOLUME 95.5 fl (82.0-101.0); MEAN PLATELET VOLUME 10.2 fl (7.4-10.4); NUCLEATED RED BLOOD CELLS% 0.2 /100WBC (0.0-0.0); PLATELET COUNT 225 10^3/UL (140-415); RED BLOOD COUNT 2.89 10^6/ul (4.20-5.40); RED CELL DISTRIBUTION WIDTH 15.4 % (11.5-14.5); WHITE BLOOD COUNT 11.9 10^3/ul (4.8-10.8)
--- NOTE | 2017-01-16 05:50 | PN ---
DATE: 01/15/2017 SUBJECTIVE DATA: Patient is intubated, sedated, in no distress. She is afebrile. LABORATORY AND DIAGNOSTIC DATA: WBC 5.3, H and H 7.9 and 27.1, platelets 184,000. BUN 23, creatinine 1.10. Microbiology: Urine and sputum culture growing Dominga albicans. Chest x-ray from yesterday revealed stable pulmonary vascular congestion, cardiomegaly, questionable left lower lobe atelectasis or infiltrate. Patchy right lower lung atelectasis versus infiltrate and small right pleural effusion. INDWELLING: Patient has endotracheal tube, NG tube, right PleurX catheter, left IJ triple lumen catheter. WOUND ANTIMICROBIALS: Vancomycin, meropenem. PHYSICAL EXAMINATION: VITAL SIGNS: Temperature 99.4, pulse 83, respirations 16, blood pressure 90/46, saturation 100 on vent. GENERAL: Chronically ill-appearing elderly woman who is in no distress. HEENT: Head atraumatic, normocephalic. Sclerae anicteric. Buccal mucosa dry. NECK: Supple. Trachea midline. CHEST: Rise symmetrical. Breath sounds diminished at the bases. HEART: S1, S2. ABDOMEN: Soft, bowel sounds present. EXTREMITIES: With trace edema. ASSESSMENT: 1. Recurrent acute respiratory failure, patient was re- intubated yesterday. 2. Dominga albicans urinary tract infection. 3. Healthcare-associated pneumonia. 4. Chronic lymphocytic leukemia. 5. History of recurrent pleural effusions status post right PleurX catheter placement. 6. History of atrial fibrillation and deep venous thrombosis. 7. 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 PLAN: Patient remains hemodynamically stable. Continue present care, antibiotics. Add Diflucan. Vent management as per Pulmonary. Dictated By: Elvin Owusu NP /linette/naren /Document#: [id number]
[2017-01-16 05:53] LABS: POSITIVE DIFF @See below
[2017-01-16 06:08] LABS: CALCIUM 9.1 mg/dl (8.4-10.2); CREATININE 1.27 mg/dl (0.44-1.00); PHOSPHORUS 3.2 mg/dl (2.5-4.9); POTASSIUM 3.7 mmol/L (3.5-5.1)
[2017-01-16] MEDS: MIDAZOLAM (DRIP) 50 mg/50 mL 50 ML IV SCH ×2 (06:52→20:00)
--- NOTE | 2017-01-16 07:50 | PN ---
DATE: 01/16/2017 SUBJECTIVE DATA: The patient is critically ill, on presser support, on full ventilatory support. No other events noted. No hemoptysis, hematemesis, hematochezia. OBJECTIVE DATA: VITAL SIGNS: Blood pressure is 117/52, respirations 16, pulse 75, temperature 98.6. HEENT: Head is normocephalic. NECK: Supple. HEART: Regular rate. LUNGS: Diminished breath sounds at the base. ABDOMEN: Soft, nontender to palpation. No rebound or guarding. EXTREMITIES: Negative for clubbing, cyanosis. No edema. DERMATOLOGIC: No rashes. MUSCULOSKELETAL: No joint effusion. NEUROLOGIC: No change in exam. MEDICATIONS: Reviewed. The patient's urine culture Gram stain positive for Dominga albicans. ASSESSMENT AND PLAN: 1. Ventilatory-dependent respiratory failure. Patient's vent settings and ABGs reviewed. Continue to monitor. Follow up Pulmonary. 2. Septic shock. The patient is currently on presser support. Will start the patient on IV albumin for volume expansion. Continue antibiotic therapy. 3. Acute decompensated heart failure. The patient is being followed by Cardiology. Defer diuretic therapy in the setting of shock. 4. Nonoliguric acute kidney injury with unknown baseline creatinine. Etiology secondary to septic acute kidney injury, acute tubular necrosis. Renal function appears to be stabilizing. Continue current treatment. Supportive care. Renally dose all meds. 5. Anemia. Monitor H and H levels. Transfuse as needed. 6. Mineral bone disorder. Monitor calcium and phosphorus levels. 7. Diabetes. Continue Accu-Cheks and sliding scale. 8. Chronic lymphocytic leukemia. Continue to monitor. 9. Coronary artery disease. Continue current treatment plan. 10. Lower extremity deep vein thrombosis. Continue Lovenox. 11. Pulmonary hypertension. Continue current treatment plan. 12. Pleural effusions with history of PleurX catheter, currently nonfunctional. Continue to monitor. 13. Gastrointestinal and deep venous thrombosis prophylaxis. 14. Acute encephalopathy, etiology toxic metabolic. No significant change. Please note, I spent over 30 minutes of critical care time with this patient. Dictated By: Timo Mccracken DO /linette/randee /Document#: [id number]
[2017-01-16] MEDS: ALBUMIN HUMAN 25% 50 ML IV SCH ×3 (08:23→23:19)
[2017-01-16] MEDS: FLUCONAZOLE 100 MG TAB PO SCH (08:26)
[2017-01-16] MEDS: MUPIROCIN 2% 22 GM OINT TOP SCH ×2 (08:26→20:43)
[2017-01-16] MEDS: NYSTATIN 30 GM POWDER BTL TOP SCH ×2 (08:27→20:43)
[2017-01-16] MEDS: BALSAM PERU/CASTOR OIL 60 GM TUBE TOP SCH ×2 (08:27→20:44)
[2017-01-16] MEDS: ENOXAPARIN 80 MG/0.8 ML SYG SC SCH ×2 (08:29→20:54)
[2017-01-16] MEDS: MEROPENEM 500MG/50 ML (PMX) 50 ML IVPB SCH ×2 (08:35→20:43)
[2017-01-16] MEDS: VANCOMYCIN 1 GM in NS 250 ML IVPB SCH (09:16)
[2017-01-16 09:57] LABS: ANISOCYTOSIS 1+ (0-0); EOSINOPHILS % (M) 2 % (0-7); METAMYELOCYTES %M 1 % (0-0); MICROCYTOSIS 1+ (0-0); MONOCYTES % (M) 31 % (0-11); PLATELET ESTIMATE NORMAL; POIKILOCYTOSIS 1+ (0-0); POLYCHROMASIA 2+ (0-0)
--- NOTE | 2017-01-16 10:28 | CONS ---
Date/Time of Note Date/Time of Note DATE: 01/16/17 TIME: 10:25 Assessment/Plan Assessment/Plan Chief Complaint/Hosp Course Consult dictated #[id number] Problems: Additional Assessment/Plan Data setting; AC of 16, tidal volume 400, PEEP of 5, 40% FiO2. Patient is currently on fentanyl at 20 mics per hour, Versed 1 mg/h. Assessment and recommendations; 1. Patient admitted with respiratory failure due to CHF and pneumonia. 2. Anemia. 3. Chronic renal insufficiency. 4. History of chronic lymphocytic leukemia. 5. History of recurrent pleural effusions, status post right Pleurx catheter placement. 6. Generalized deconditioning. 7. Failure to be weaned from ventilator. Continue current supportive care. Hold further sedation. Obtain follow-up chest x-ray. Once the patient is completely off sedative effect she will be evaluated for possible weaning from ventilator. Consultation Date/Type/Reason Admit Date/Time Jan 10, 2017 at 23:15 Initial Consult Date 01/11/17 Type of Consultation: Pulmonary/critical care 24 HR Interval Summary Free Text/Dictation Patient's condition remains critical. Has failed numerous weaning trials from ventilator. Also failed 1 extubation trial. Patient however currently despite being on sedation is readily arousable. General exam; elderly woman, orally intubated, awake, currently in no distress. Exam/Review of Systems Vital Signs Vitals Vital Signs Date Time Temp Pulse Resp B/P Pulse Ox O2 Delivery O2 Flow Rate FiO2 01/16/17 08:30 84 17 113/48 100 Mechanical Ventilator 01/16/17 07:45 99.4 01/16/17 05:30 40 01/14/17 08:36 4.0 Intake and Output 01/15/17 01/15/17 01/16/17 15:00 23:00 07:00 Intake Total 578.5 ml 309.0 ml 252.50 ml Output Total 277 ml 252 ml 265 ml Balance 301.5 ml 57.0 ml -12.50 ml Exam HEENT exam; supple neck, positive JVD. No lymphadenopathy. Midline trachea. No thyromegaly. Orally intubated. Patient is edentulous. Pupils are small bilaterally. Chest exam; diminished but clear breath sounds. S1-S2 audible, no murmurs. Regular rhythm. Abdomen exam; soft, nontender. No organomegaly. Bowel sounds audible. Extremity exam; no edema. REMEDIATION TECHNICIAN exam; patient is awake. Results Result Diagram: 01/16/17 0520 01/16/17 0520 Results 24 hrs Laboratory Tests Test 01/15/17 11:58 01/15/17 13:08 01/15/17 14:28 01/15/17 17:16 Bedside Glucose 148 163 161 Hemoglobin 8.3 L Hematocrit 27.0 L Test 01/15/17 20:32 01/16/17 01:20 01/16/17 04:26 01/16/17 05:20 Bedside Glucose 138 139 129 White Blood Count 11.9 #H Red Blood Count 2.89 L Hemoglobin 8.4 L Hematocrit 27.6 L Mean Corpuscular Volume 95.5 Mean Corpuscular Hemoglobin 29.1 Mean Corpuscular Hemoglobin Concent 30.4 L Red Cell Distribution Width 15.4 H Platelet Count 225 # Mean Platelet Volume 10.2 Neutrophils % Segmented Neutrophils % (Manual) 14 L Lymphocytes % Lymphocytes % (Manual) 52 H Monocytes % Monocytes % (Manual) 31 H Eosinophils % Eosinophils % (Manual) 2 Basophils % Metamyelocytes % (manual) 1 H Nucleated Red Blood Cells % 0.2 H Neutrophils # Absolute Lymphocytes (Manual) 6.1 H Lymphocytes # Monocytes # Absolute Monocytes (Manual) 3.6 H Eosinophils # Basophils # Metamyelocytes # 0.1 H Nucleated Red Blood Cells # Platelet Estimate NORMAL Polychromasia 2+ Poikilocytosis 1+ Anisocytosis 1+ Microcytosis 1+ Sodium Level 140 Potassium Level 3.7 Chloride Level 101 Carbon Dioxide Level 34 H Anion Gap 9 Blood Urea Nitrogen 27 H Creatinine 1.27 H Glucose Level 126 Calcium Level 9.1 Phosphorus Level 3.2 Magnesium Level 2.0 Test 01/16/17 08:05 01/16/17 08:34 Lactic Acid Level 0.8 Bedside Glucose 138 Medications Medications Current Medications Propofol 100 ml @ 2.045 mls/ hr Q12H IV Last administered on 01/12/17 08:16; Admin Dose 10.227 MLS/HR; Start 01/11/17 at 01:30 Vancomycin HCl (Vancocin) 250 ml @ 125 mls/hr Q24H IVPB Last administered on 09:16; Admin Dose 125 MLS/HR; Start 01/11/17 at 09:00 Enoxaparin Sodium 70 mg 70 mg Q12 SC Last administered on 01/16/17 08:29; Admin Dose 70 MG; Start 01/11/17 at 12:30 Meropenem/Sodium Chloride 50 ml @ 100 mls/hr Q12 IVPB Last administered on 08:35; Admin Dose 100 MLS/HR; Start 01/11/17 at 14:30 Phenylephrine HCl/ Dextrose (Baudilio-Syneph/D5W) 250 ml @ 10 mls/hr TITRATE IV Last administered on 01/16/17 01:35; Admin Dose 7.5 MLS/HR; Start 01/12/17 at 06:00 Mupirocin (Bactroban) 1 applic BID TOP Last administered on 01/16/17 08:26; Admin Dose 1 APPLIC; Start 01/12/17 at 13:00 Morphine Sulfate (morphine) 1 mg Q4H PRN IV PAIN Last administered on 03:36; Admin Dose 1 MG; Start 01/12/17 at 19:00 Diagnostic Test (Pha) (Accu-Chek) 1 ea 02 XX Last administered on 01/15/17 00: 50; Admin Dose 1 EA; Start 01/14/17 at 02:00 Insulin Aspart (Novolog Insulin Pen) NOVOLOG *MILD* ALGORI... Q4 SC Last administered on 01/15/17 17:29; Admin Dose 1 UNIT; Start 01/13/17 at 09:00 Miscellaneous Information 1 ea NOTE XX ; Start 01/13/17 at 07:00 Glucose (Glutose) 15 gm Q15M PRN PO DECREASED GLUCOSE; Start 01/13/17 at 07:00 Glucose (Glutose) 22.5 gm Q15M PRN PO DECREASED GLUCOSE; Start 01/13/17 at 07: 00 Dextrose (D50w Syringe) 25 ml Q15M PRN IV DECREASED GLUCOSE; Start 01/13/17 at 07:00 Dextrose (D50w Syringe) 50 ml Q15M PRN IV DECREASED GLUCOSE; Start 01/13/17 at 07:00 Glucagon (Glucagen) 1 mg Q15M PRN IM DECREASED GLUCOSE; Start 01/13/17 at 07:00 Glucose (Glutose) 15 gm Q15M PRN BUCCAL DECREASED GLUCOSE; Start 01/13/17 at 07 :00 Carvedilol 3.125 mg 3.125 mg BID NGT Last administered on 01/14/17 09:29; Admin Dose 3.125 MG; Start 01/13/17 at 09:00 Midazolam HCl 50 ml @ 1 mls/hr TITRATE IV Last administered on 01/16/17 06:52 ; Admin Dose 1 MLS/HR; Start 01/14/17 at 12:00 Fentanyl (Sublimaze) 100 ml @ 2.5 mls/hr TITRATE IV Last administered on 02:08; Admin Dose 5 MLS/HR; Start 01/14/17 at 13:00 Nystatin (Nystatin Powder) 1 applic BID TOP Last administered on 01/16/17 08: 27; Admin Dose 1 APPLIC; Start 01/14/17 at 15:00 Fluconazole 100 mg 100 mg DAILY PO Last administered on 01/16/17 08:26; Admin Dose 100 MG; Start 01/16/17 at 09:00 Albumin Human (Albumin Human 25%) 50 ml @ 100 mls/hr Q8H IV Last administered on 01/16/17 08:23; Admin Dose 100 MLS/HR; Start 01/16/17 at 07:30; Stop at 23:59 RADHA CAMACHO Jan 16, 2017 10:28
--- NOTE | 2017-01-16 10:29 | RADRPT ---
PROCEDURE: XR Chest. CLINICAL INDICATION: Respiratory distress. TECHNIQUE: AP view of the chest was performed. COMPARISON: January 14, 2017 FINDINGS: The ET tube is now at the level of the jaya. This needs to be pulled back 3 cm. The left central v enous catheter remains in good positioning. There is persistent mild cardiomegaly, vascular congestion, right lower lung field infiltrates, and trace bilateral pleural effusions. There is no pneumothorax. Osteopenia is present. IMPRESSION: 1. ET tube at the jaya. This needs to be pulled back 3 cm. Left central venous catheter in place. 2. Persistent mild fluid overload with increased right lower lobe lung infiltrates. Findings could r epresent pneumonia. RPTAT: QQ. .Nasreen Murphy MD, Date Time Electronically viewed and signed by .Nasreen Murphy MD, on 01/16/2017 10:28 .F/
--- NOTE | 2017-01-16 13:34 | PN ---
DATE: 01/16/2017 SUBJECTIVE DATA: No acute events. The patient is lying comfortably in bed, intubated and sedated. She was started on pressors for low blood pressure. Temperature 98.6, pulse 82, respirations 16, blood pressure 109/54. Saturation 100 on 40 percent. LABORATORY: WBC today 11.9, H and H 8.4 and 27.6, and platelets 225,000. BUN 27 and creatinine 1.27. MICROBIOLOGY: Endotracheal aspirate growing Dominga albicans. INDWELLINGS: Endotracheal tube, NG-tube, Sifuentes catheter, right chest PleurX and left subclavian triple lumen catheter. ANTIMICROBIALS: The patient is on Vancomycin, Meropenem, and fluconazole. DIAGNOSTICS: Chest x-ray this morning revealed persistent mild fluid overload with increased right lower lobe lung infiltrates. Findings could represent pneumonia. OBJECTIVE DATA: PHYSICAL EXAMINATION: GENERAL: This is an obese well-developed, fragile, elderly woman, who is intubated and sedated, in no distress. HEENT: Head atraumatic, normocephalic. Sclerae anicteric. Buccal mucosa dry. NECK: Obese. Trachea midline. CHEST: Rise is symmetrical. Breath sounds diminished at the bases. HEART: S1, S2. ABDOMEN: Soft, bowel sounds hypoactive. EXTREMITIES: With trace edema. ASSESSMENT: 1. Septic shock. 2. Acute respiratory failure, secondary to fluid overload and possible pneumonia. 3. Dominga albicans urinary tract infection. 4. Methicillin-resistant Staphylococcus aureus nares colonization. 5. History of chronic lymphocytic leukemia. 6. History of recurrent pleural effusions, status post-right PleurX catheter. 7. History of atrial fibrillation and deep venous thrombosis. 8. Diabetes. PLAN: The patient a remains hemodynamically unstable, covered with broad-spectrum antibiotics. Followed by multiple consultants. Continue present care. Dictated By: Elvin Owusu NP /linette/maxine /Document#: [id number]
--- NOTE | 2017-01-16 14:01 | PN ---
DATE: 01/16/2017 SUBJECTIVE DATA: This patient remains intubated. OBJECTIVE DATA: Temperature 98.6, pulse 83, blood pressure 109/52. Oxygen saturation 100 percent. HEART: Cardiac exam reveals an irregular rhythm. LUNGS: Decreased breath sounds bilaterally. EXTREMITIES: Reveal trace edema. LABORATORY: White count elevated today at 11.9, hematocrit 27. Sodium 140, potassium 3.7, BUN 27, creatinine 1.2. IMPRESSION: 1. Respiratory failure due to pneumonia. 2. Congestive heart failure. 3. Sepsis. PLAN: Vital signs are currently stable. Continue weaning as per Pulmonary. Dictated By: Andi Srivastava MD /linette/maxine /Document#: [id number]
--- NOTE | 2017-01-16 14:26 | RADRPT ---
PROCEDURE: XR Chest. CLINICAL INDICATION: Shortness of breath. TECHNIQUE: Single frontal view. COMPARISON: 01/16/2017. 0526 hours. FINDINGS: The endotracheal tube and right chest tube remain in satisfactory position. The endotracheal tube is in satisfactory position approximately 2 cm above the jaya. The left central venous catheter is i n satisfactory position with the tip in the mid superior vena cava. Air space disease in the lung ba ses and bilateral pleural effusions are unchanged. The heart is enlarged. There is calcification in the aorta consistent with atherosclerosis. There is no pneumothorax. IMPRESSION: 1. Tubes and lines in satisfactory position. 2. No other change from the prior study done earlier the same day. RPTAT: QQ .Noe Aragon MD, MD Date Time Electronically viewed and signed by .Noe Aragon MD, MD on 01/16/2017 14:26 .R/
--- NOTE | 2017-01-16 17:59 | CONS ---
Date/Time of Note Date/Time of Note DATE: 01/16/17 TIME: 17:57 Assessment/Plan Assessment/Plan Chief Complaint/Hosp Course CLL- ON TREATMENT RECORD NO AVAILABLE OBTAIN AND REVIEW RECORD TREATMENT - ON HOLD Respiratory failure. Septic shock. Acute decompensated heart failure. Nonoliguric acute kidney injury with unknown baseline creatinine. Etiology secondary to septic acute kidney injury, acute tubular necrosis. Anemia. Monitor H and H levels. Transfuse as needed. Mineral bone disorder. Diabetes. Continue Accu-Cheks and sliding scale. Coronary artery disease. Pulmonary hypertension. Pleural effusions with history of PleurX catheter, currently nonfunctional. Problems: Consultation Date/Type/Reason Admit Date/Time Jan 10, 2017 at 23:15 Initial Consult Date 01/11/17 Type of Consultation: [facility] Referring Provider: AUBREE PALMA DO 24 HR Interval Summary Free Text/Dictation ALL NOTED D/W RN The patient is critically ill, on presser support, on full ventilatory support. Exam/Review of Systems Vital Signs Vitals Vital Signs Date Time Temp Pulse Resp B/P Pulse Ox O2 Delivery O2 Flow Rate FiO2 01/16/17 16:00 90 01/16/17 15:30 23 108/49 100 Mechanical Ventilator 01/16/17 15:30 40 01/16/17 11:00 98.6 01/14/17 08:36 4.0 Intake and Output 01/15/17 01/15/17 01/16/17 15:00 23:00 07:00 Intake Total 578.5 ml 309.0 ml 302.50 ml Output Total 277 ml 252 ml 265 ml Balance 301.5 ml 57.0 ml 37.50 ml Exam HEENT: Head is normocephalic. NECK: Supple. HEART: Regular rate. LUNGS: Diminished breath sounds at the base. ABDOMEN: Soft, nontender to palpation. No rebound or guarding. EXTREMITIES: Negative for clubbing, cyanosis. No edema. DERMATOLOGIC: No rashes. MUSCULOSKELETAL: No joint effusion. NEUROLOGIC: No change in exam. Results Result Diagram: 01/16/17 0501/16/17 0520 Results 24 hrs Laboratory Tests Test 01/15/17 20:32 01/16/17 01:20 01/16/17 04:26 01/16/17 05:20 Bedside Glucose 138 139 129 White Blood Count 11.9 #H Red Blood Count 2.89 L Hemoglobin 8.4 L Hematocrit 27.6 L Mean Corpuscular Volume 95.5 Mean Corpuscular Hemoglobin 29.1 Mean Corpuscular Hemoglobin Concent 30.4 L Red Cell Distribution Width 15.4 H Platelet Count 225 # Mean Platelet Volume 10.2 Neutrophils % Segmented Neutrophils % (Manual) 14 L Lymphocytes % Lymphocytes % (Manual) 52 H Monocytes % Monocytes % (Manual) 31 H Eosinophils % Eosinophils % (Manual) 2 Basophils % Metamyelocytes % (manual) 1 H Nucleated Red Blood Cells % 0.2 H Neutrophils # Absolute Lymphocytes (Manual) 6.1 H Lymphocytes # Monocytes # Absolute Monocytes (Manual) 3.6 H Eosinophils # Basophils # Metamyelocytes # 0.1 H Nucleated Red Blood Cells # Platelet Estimate NORMAL Polychromasia 2+ Poikilocytosis 1+ Anisocytosis 1+ Microcytosis 1+ Sodium Level 140 Potassium Level 3.7 Chloride Level 101 Carbon Dioxide Level 34 H Anion Gap 9 Blood Urea Nitrogen 27 H Creatinine 1.27 H Glucose Level 126 Calcium Level 9.1 Phosphorus Level 3.2 Magnesium Level 2.0 Test 01/16/17 08:05 01/16/17 08:34 01/16/17 13:15 01/16/17 17:10 Lactic Acid Level 0.8 Bedside Glucose 138 151 154 Medications Medications Current Medications Propofol 100 ml @ 2.045 mls/ hr Q12H IV Last administered on 01/12/17 08:16; Admin Dose 10.227 MLS/HR; Start 01/11/17 at 01:30 Vancomycin HCl (Vancocin) 250 ml @ 125 mls/hr Q24H IVPB Last administered on 09:16; Admin Dose 125 MLS/HR; Start 01/11/17 at 09:00 Enoxaparin Sodium 70 mg 70 mg Q12 SC Last administered on 01/16/17 08:29; Admin Dose 70 MG; Start 01/11/17 at 12:30 Meropenem/Sodium Chloride 50 ml @ 100 mls/hr Q12 IVPB Last administered on 08:35; Admin Dose 100 MLS/HR; Start 01/11/17 at 14:30 Phenylephrine HCl/ Dextrose (Baudilio-Syneph/D5W) 250 ml @ 10 mls/hr TITRATE IV Last administered on 01/16/17 01:35; Admin Dose 7.5 MLS/HR; Start 01/12/17 at 06:00 Mupirocin (Bactroban) 1 applic BID TOP Last administered on 01/16/17 08:26; Admin Dose 1 APPLIC; Start 01/12/17 at 13:00 Morphine Sulfate (morphine) 1 mg Q4H PRN IV PAIN Last administered on 03:36; Admin Dose 1 MG; Start 01/12/17 at 19:00 Diagnostic Test (Pha) (Accu-Chek) 1 ea 02 XX Last administered on 01/15/17 00: 50; Admin Dose 1 EA; Start 01/14/17 at 02:00 Insulin Aspart (Novolog Insulin Pen) NOVOLOG *MILD* ALGORI... Q4 SC Last administered on 01/16/17 17:13; Admin Dose 1 UNIT; Start 01/13/17 at 09:00 Miscellaneous Information 1 ea NOTE XX ; Start 01/13/17 at 07:00 Glucose (Glutose) 15 gm Q15M PRN PO DECREASED GLUCOSE; Start 01/13/17 at 07:00 Glucose (Glutose) 22.5 gm Q15M PRN PO DECREASED GLUCOSE; Start 01/13/17 at 07: 00 Dextrose (D50w Syringe) 25 ml Q15M PRN IV DECREASED GLUCOSE; Start 01/13/17 at 07:00 Dextrose (D50w Syringe) 50 ml Q15M PRN IV DECREASED GLUCOSE; Start 01/13/17 at 07:00 Glucagon (Glucagen) 1 mg Q15M PRN IM DECREASED GLUCOSE; Start 01/13/17 at 07:00 Glucose (Glutose) 15 gm Q15M PRN BUCCAL DECREASED GLUCOSE; Start 01/13/17 at 07 :00 Carvedilol 3.125 mg 3.125 mg BID NGT Last administered on 01/14/17 09:29; Admin Dose 3.125 MG; Start 01/13/17 at 09:00 Midazolam HCl 50 ml @ 1 mls/hr TITRATE IV Last administered on 01/16/17 06:52 ; Admin Dose 1 MLS/HR; Start 01/14/17 at 12:00 Fentanyl (Sublimaze) 100 ml @ 2.5 mls/hr TITRATE IV Last administered on 02:08; Admin Dose 5 MLS/HR; Start 01/14/17 at 13:00 Nystatin (Nystatin Powder) 1 applic BID TOP Last administered on 01/16/17 08: 27; Admin Dose 1 APPLIC; Start 01/14/17 at 15:00 Fluconazole 100 mg 100 mg DAILY PO Last administered on 01/16/17 08:26; Admin Dose 100 MG; Start 01/16/17 at 09:00 Albumin Human (Albumin Human 25%) 50 ml @ 100 mls/hr Q8H IV Last administered on 01/16/17 16:08; Admin Dose 100 MLS/HR; Start 01/16/17 at 07:30; Stop at 23:59 Miscellaneous Information (*Rx Drug Level Order Reminder*) VANCOMYCIN TROUGH AT 0800 ONCE ONCE XX ; Start 01/17/17 at 08:00; Stop 01/17/17 at 08:01 SE RAY MD Jan 16, 2017 17:59
[2017-01-17] VITALS (61 sets, daily range): BP systolic 81–119; BP diastolic 33–77; PULSE 48–89; RESP 9–27
[2017-01-17] MEDS: PHENYLephrine 40 MG in DEXTROSE 5% 246 ML IV SCH ×2
[2017-01-17] MEDS: INSULIN ASPART [NOVOLOG] 3 ML PEN SC SCH ×6 (01:00→20:29)
[2017-01-17] MEDS: PROPOFOL 100 ML IV SCH ×2 (01:28→12:32)
[2017-01-17] MEDS: ACCU-CHEK XX SCH (02:00)
[2017-01-17] MEDS: FENTAnyl (DRIP) 1000 mcg/100mL 100 ML IV SCH ×2 (02:11→16:21)
[2017-01-17 06:07] LABS: ABNORMAL IP MESSAGE 1; BASOPHILS % 0.3 % (0.0-2.0); EOSINOPHILS # 0.1 10^3/ul (0.0-0.5); EOSINOPHILS % 0.7 % (0.0-7.0); HEMATOCRIT 25.4 % (37.0-47.0); HEMOGLOBIN 7.8 g/dl (12.0-16.0); LYMPHOCYTES # 2.8 10^3/ul (0.8-2.9); LYMPHOCYTES % 37.2 % (15.0-51.0); MEAN CORPUSCULAR HEMOGLOBIN 29.5 pg (29.0-33.0); MEAN CORPUSCULAR HGB CONC 30.7 g/dl (32.0-37.0); MEAN CORPUSCULAR VOLUME 96.2 fl (82.0-101.0); MEAN PLATELET VOLUME 10.1 fl (7.4-10.4); MONOCYTE # 2.6 10^3/ul (0.3-0.9); NEUTROPHIL # 1.4 10^3/ul (1.6-7.5); NEUTROPHILS % 18.4 % (39.0-77.0); PLATELET COUNT 186 10^3/UL (140-415); RED BLOOD COUNT 2.64 10^6/ul (4.20-5.40); RED CELL DISTRIBUTION WIDTH 15.7 % (11.5-14.5); WHITE BLOOD COUNT 7.4 10^3/ul (4.8-10.8)
[2017-01-17 06:28] LABS: MONOCYTES % 35.1 % (0.0-11.0); POSITIVE DIFF @See below
[2017-01-17 06:46] LABS: CALCIUM 8.9 mg/dl (8.4-10.2); CREATININE 1.12 mg/dl (0.44-1.00); MAGNESIUM 2.1 mg/dl (1.7-2.5); POTASSIUM 3.3 mmol/L (3.5-5.1)
[2017-01-17] MEDS: ALBUMIN HUMAN 25% 100 ML IV SCH ×3 (07:44→23:08)
--- NOTE | 2017-01-17 07:46 | PN ---
DATE: 01/17/2017 SUBJECTIVE DATA: The patient is critically ill, on full ventilatory support. No other acute events noted. No hemoptysis, hematemesis, hematochezia. The patient remains on presser support. OBJECTIVE DATA: VITAL SIGNS: Blood pressure 102/48, respirations 11, pulse 81, temperature 100.2. HEENT: Head is normocephalic. NECK: Supple. HEART: Regular rate. LUNGS: Diminished breath sounds at the base. ABDOMEN: Soft, nontender to palpation. No guarding. EXTREMITIES: Negative for clubbing or cyanosis. No edema. DERMATOLOGIC: Clean. No rashes. MUSCULOSKELETAL: No joint effusion. NEUROLOGIC: No change in exam. MEDICATIONS: Reviewed. LABORATORY AND DIAGNOSTIC DATA: Sodium 144, potassium 3.3, chloride 104, BUN 25, creatinine 1.12. White count 7.4, hemoglobin 7.8, hematocrit 25.4, platelet count is 186. The patient's chest x-ray on 01/16 shows persistent mild volume overload, increased infiltrate. ASSESSMENT AND PLAN: 1. Ventilatory-dependent respiratory failure. Vent settings, ABGs reviewed. Continue to monitor. Follow up Pulmonary. 2. Septic shock. The patient is currently on presser support. Continue IV antibiotics. Can wean off pressors if possible. 3. Acute decompensated heart failure. The patient will follow up with Cardiology. Defer diuretic therapy in the setting of shock. 4. Nonoliguric acute kidney injury with unknown baseline creatinine. Etiology secondary to septic AKITN. Renal function appears to be stabilizing. Continue current treatment. Supportive care. Renally dose all meds. 5. Anemia monitor H and H levels. Transfuse as needed. 6. Mineral bone disorder. Monitor calcium and phosphorus levels. 7. Diabetes. Continue Accu-Cheks and insulin sliding scale. 8. Chronic lymphocytic leukemia. 9. Coronary artery disease. Continue current treatment plan. 10. Pulmonary hypertension. Continue current medical management. 11. Pleural effusions with history of PleurX catheter. Currently non-functional. Continue to monitor. Follow up Pulmonary. 12. Lower extremity deep vein thrombosis. Continue Lovenox. 13. Acute encephalopathy. Etiology toxic metabolic. No significant change. 14. Gastrointestinal and deep venous thrombosis prophylaxis Please note, I spent over 30 minutes of critical care time with this patient. Dictated By: Timo Mccracken DO /linette/ /Document#: [id number]
[2017-01-17] MEDS: FLUCONAZOLE 100 MG TAB PO SCH (08:12)
[2017-01-17] MEDS: MEROPENEM 500MG/50 ML (PMX) 50 ML IVPB SCH ×2 (08:13→20:20)
[2017-01-17] MEDS: ENOXAPARIN 80 MG/0.8 ML SYG SC SCH ×2 (08:14→20:31)
[2017-01-17] MEDS: NYSTATIN 30 GM POWDER BTL TOP SCH ×2 (08:15→20:26)
[2017-01-17] MEDS: MUPIROCIN 2% 22 GM OINT TOP SCH ×2 (08:15→20:25)
[2017-01-17] MEDS: BALSAM PERU/CASTOR OIL 60 GM TUBE TOP SCH ×2 (08:15→20:27)
[2017-01-17] MEDS: VANCOMYCIN 1 GM in NS 250 ML IVPB SCH (10:23)
--- NOTE | 2017-01-17 10:37 | CONS ---
Date/Time of Note Date/Time of Note DATE: 01/17/17 TIME: 10:29 Assessment/Plan Assessment/Plan Chief Complaint/Hosp Course Consult dictated #[id number] Problems: Additional Assessment/Plan Ventilator setting; AC of 16, tidal volume 400, PEEP of 5, 40% FiO2. Chest x-ray was reviewed from yesterday which is showing improving aeration of the lungs with decreased pleural effusions. Next Assessment and recommendations; 1. Patient admitted with bilateral pneumonia as well as CHF with radiological improvement. 2. Severe generalized deconditioning with failure to be weaned off from invasive mechanical ventilation. 3. Chronic renal insufficiency. 4. Anemia and thrombocytopenia. 5. History of CLL. Hold sedation for now. Once the patient is off sedation she will be evaluated for possible weaning from invasive ventilation. I did have a very detailed discussion patient's [id number] at bedside and answered all her questions. In case the patient is unable to be extubated , need for tracheostomy was discussed and the patient's [id number] is going to discuss that with the patient's son and let us know about the family's wishes. Consultation Date/Type/Reason Admit Date/Time Jan 10, 2017 at 23:15 Initial Consult Date 01/11/17 Type of Consultation: Pulmonary/critical care Referring Provider: AUBREE PALMA DO 24 HR Interval Summary Free Text/Dictation Patient's condition remains critical. Has failed multiple weaning attempts from ventilator. Patient however has remained hemodynamically stable. General exam; elderly woman, orally intubated, sedated, currently in no distress. Exam/Review of Systems Vital Signs Vitals Vital Signs Date Time Temp Pulse Resp B/P Pulse Ox O2 Delivery O2 Flow Rate FiO2 01/17/17 08:00 75 01/17/17 08:00 17 86/33 100 Mechanical Ventilator 01/17/17 07:45 99.4 01/17/17 07:45 30 01/14/17 08:36 4.0 Intake and Output 01/16/17 01/16/17 01/17/17 15:00 23:00 07:00 Intake Total 640.5 ml 334 ml 205.05 ml Output Total 364 ml 297 ml 330 ml Balance 276.5 ml 37 ml -124.95 ml Exam HEENT exam; supple neck, positive JVD. No lymphadenopathy. Midline trachea. No thyromegaly. Orally intubated. Pupils are small bilaterally. Chest exam; diminished breath sounds. S1-S2 audible, no murmurs. Regular rhythm. There is a Pleurx catheter in the right lateral chest wall. Given exam; soft, nondistended. No organomegaly. Bowel sounds audible. Extremity exam; no edema. BOAT MASTER exam; patient is sedated. Results Result Diagram: 01/17/17 0500 01/17/17 0500 Results 24 hrs Laboratory Tests Test 01/16/17 13:15 01/16/17 17:10 01/16/17 20:51 01/17/17 01:27 Bedside Glucose 151 154 155 140 Test 01/17/17 05:00 01/17/17 05:06 01/17/17 08:12 White Blood Count 7.4 # Red Blood Count 2.64 L Hemoglobin 7.8 L Hematocrit 25.4 L Mean Corpuscular Volume 96.2 Mean Corpuscular Hemoglobin 29.5 Mean Corpuscular Hemoglobin Concent 30.7 L Red Cell Distribution Width 15.7 H Platelet Count 186 Mean Platelet Volume 10.1 Neutrophils % 18.4 L Lymphocytes % 37.2 Monocytes % 35.1 H Eosinophils % 0.7 Basophils % 0.3 Nucleated Red Blood Cells % 0.0 Neutrophils # 1.4 L Lymphocytes # 2.8 Monocytes # 2.6 H Eosinophils # 0.1 Basophils # 0.0 Nucleated Red Blood Cells # 0.0 Sodium Level 144 Potassium Level 3.3 L Chloride Level 104 Carbon Dioxide Level 32 H Anion Gap 11 Blood Urea Nitrogen 25 H Creatinine 1.12 H Glucose Level 110 Calcium Level 8.9 Phosphorus Level 3.0 Magnesium Level 2.1 Vancomycin Level Trough 16.6 Digoxin Level 0.9 L Bedside Glucose 91 130 Medications Medications Current Medications Propofol 100 ml @ 2.045 mls/ hr Q12H IV Last administered on 01/12/17 08:16; Admin Dose 10.227 MLS/HR; Start 01/11/17 at 01:30 Vancomycin HCl (Vancocin) 250 ml @ 125 mls/hr Q24H IVPB Last administered on 10:23; Admin Dose 125 MLS/HR; Start 01/11/17 at 09:00 Enoxaparin Sodium 70 mg 70 mg Q12 SC Last administered on 01/17/17 08:14; Admin Dose 70 MG; Start 01/11/17 at 12:30 Meropenem/Sodium Chloride 50 ml @ 100 mls/hr Q12 IVPB Last administered on 08:13; Admin Dose 100 MLS/HR; Start 01/11/17 at 14:30 Phenylephrine HCl/ Dextrose (Baudilio-Syneph/D5W) 250 ml @ 10 mls/hr TITRATE IV Last administered on 01/17/17 00:00; Admin Dose 7.5 MLS/HR; Start 01/12/17 at 06:00 Mupirocin (Bactroban) 1 applic BID TOP Last administered on 01/17/17 08:15; Admin Dose 1 APPLIC; Start 01/12/17 at 13:00 Morphine Sulfate (morphine) 1 mg Q4H PRN IV PAIN Last administered on 03:36; Admin Dose 1 MG; Start 01/12/17 at 19:00 Diagnostic Test (Pha) (Accu-Chek) 1 ea 02 XX Last administered on 01/15/17 00: 50; Admin Dose 1 EA; Start 01/14/17 at 02:00 Insulin Aspart (Novolog Insulin Pen) NOVOLOG *MILD* ALGORI... Q4 SC Last administered on 01/16/17 20:53; Admin Dose 1 UNIT; Start 01/13/17 at 09:00 Miscellaneous Information 1 ea NOTE XX ; Start 01/13/17 at 07:00 Glucose (Glutose) 15 gm Q15M PRN PO DECREASED GLUCOSE; Start 01/13/17 at 07:00 Glucose (Glutose) 22.5 gm Q15M PRN PO DECREASED GLUCOSE; Start 01/13/17 at 07: 00 Dextrose (D50w Syringe) 25 ml Q15M PRN IV DECREASED GLUCOSE; Start 01/13/17 at 07:00 Dextrose (D50w Syringe) 50 ml Q15M PRN IV DECREASED GLUCOSE; Start 01/13/17 at 07:00 Glucagon (Glucagen) 1 mg Q15M PRN IM DECREASED GLUCOSE; Start 01/13/17 at 07:00 Glucose (Glutose) 15 gm Q15M PRN BUCCAL DECREASED GLUCOSE; Start 01/13/17 at 07 :00 Carvedilol 3.125 mg 3.125 mg BID NGT Last administered on 01/14/17 09:29; Admin Dose 3.125 MG; Start 01/13/17 at 09:00 Midazolam HCl 50 ml @ 1 mls/hr TITRATE IV Last administered on 01/16/17 20:00 ; Admin Dose 2 MLS/HR; Start 01/14/17 at 12:00 Fentanyl (Sublimaze) 100 ml @ 2.5 mls/hr TITRATE IV Last administered on 02:11; Admin Dose 2 MLS/HR; Start 01/14/17 at 13:00 Nystatin (Nystatin Powder) 1 applic BID TOP Last administered on 01/17/17 08: 15; Admin Dose 1 APPLIC; Start 01/14/17 at 15:00 Fluconazole 100 mg 100 mg DAILY PO Last administered on 01/17/17 08:12; Admin Dose 100 MG; Start 01/16/17 at 09:00 Albumin Human (Albumin Human 25%) 100 ml @ 100 mls/hr Q8H IV Last administered on 01/17/17 07:44; Admin Dose 100 MLS/HR; Start 01/17/17 at 07:30 ; Stop 01/18/17 at 00:29 RADHA CAMACHO Jan 17, 2017 10:37
[2017-01-17] MEDS ORDERED: POTASSIUM CHLORIDE 250 ML IVPB ONE (11:00)
[2017-01-17] MEDS ORDERED: POTASSIUM CHLORIDE 250 ML ONE (11:37)
--- NOTE | 2017-01-17 12:40 | PN ---
DATE: 01/17/2017 SUBJECTIVE DATA: No acute changes overnight. The patient is lying comfortably in bed. She spiked a fever of 102 earlier today. Currently temperature 99.4, pulse 78, respirations 18, blood pressure 106/61, saturation 100 on vent. LABORATORY AND DIAGNOSTIC DATA: WBC 7.4, hemoglobin and hematocrit 7.8 and 25.4, platelets 186,000, BUN 25, creatinine 1.12. MICROBIOLOGY: Endotracheal aspirate and urine culture grew Dominga albicans. DIAGNOSTICS: Chest x-ray yesterday revealed persistent mild fluid overload with increasing right lower lobe infiltrate. INDWELLINGS: Endotracheal tube, NG tube, right PleurX, Sifuentes, left IJ triple lumen catheter. ANTIMICROBIALS: Patient is on oral fluconazole, meropenem, and vancomycin. PHYSICAL EXAMINATION: GENERAL: This is a well-developed, well-nourished, elderly woman who is intubated, sedated, and in no distress. HEENT: Head atraumatic, normocephalic. Sclerae anicteric. Buccal mucosa dry. NECK: Supple. CHEST: Rise symmetrical. Breath sounds diminished at the bases. HEART: S1, S2. ABDOMEN: Soft, bowel sounds present. EXTREMITIES: With trace edema. ASSESSMENT: 1. Septic shock. 2. Healthcare-associated pneumonia. 3. Acute respiratory failure secondary to fluid overload, possibly aspiration event. 4. Dominga albicans urinary tract infection. 5. 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 6. Recurrent pleural effusions status post PleurX catheter placement previously which is malpositioned. 7. Chronic lymphocytic leukemia. 8. Diabetes. 9. History of atrial fibrillation and deep venous thrombosis. PLAN: The patient remains on low-dose of Baudilio-Synephrine drip. Overall looks comfortable. She spiked low-grade fever and currently afebrile. She is covered with broad-spectrum antibiotics. Continue present care. Dictated By: Elvin Owusu NP /lientte/skye /Document#: [id number]
[2017-01-17 14:00] LABS: HEMATOCRIT 24.9 % (37.0-47.0); HEMOGLOBIN 7.8 g/dl (12.0-16.0)
--- NOTE | 2017-01-17 15:34 | CONS ---
Date/Time of Note Date/Time of Note DATE: 01/17/17 TIME: 15:32 Consult Date/Type/Reason Admit Date/Time Jan 10, 2017 at 23:15 Initial Consult Date 01/11/17 Type of Consultation: CARDIOLOGY Ordering Provider: AUBREE PALMA DO Subjective CARDIOLOGY/ critical care follow up note: S: D/W staff and rhythm was reviewed. pt remains in afib. HR has been under good control she is off of neosynerphrine drip now. still on vent in ICU. pt is nonverbal. her old records were extensively reviewed pt's EF was normal at 50-55% on 01/01/17 CV checked today about 5-12 O: gen: intubated on vent HEENT: Pupils are equal NECK: + JVD CV: irregularly irregular. systolic murmur Chest: s/p pelurodex right side GI: soft NT ND. no rebound. no guarding ext: + trace LE edema neuro:Opens her eyes and respond appropriately Derm: multiple echymosis psych; calm now ECG reviewed: afib RVR. ant infarct. CXR reviewed ECHO 01/11/17reviewed personally: 1. Normal left ventricular cavity size. Normal left ventricular wall thickness. Severe left ventricular systolic dysfunction. Ejection fraction is visually estimated at 25 %. Multiple segmental wall motion abnormalities. 2. There is mild enlargement of left atrium. 3. Mild mitral leaflet calcification. Mild mitral annular calcification. Mild mitral valve regurgitation. 4. Aortic sclerosis without stenosis. Trace aortic valve regurgitation. 5. Normal appearance of the tricuspid valve. Estimated peak PA systolic pressure 53 mmHg. There is mild tricuspid regurgitation. 6. Inferior vena cava without respiratory collapse, however, patient on ventilator. ECHO 01/01/17: per review of old charts. EF 50-55%. LAE. MOD/ SEVERE MR. Objective Vital Signs Date Time Temp Pulse Resp B/P Pulse Ox O2 Delivery O2 Flow Rate FiO2 01/17/17 13:40 70 16 100 40 01/17/17 13:00 103/45 Mechanical Ventilator 01/17/17 12:00 99.0 01/14/17 08:36 4.0 Intake and Output 01/16/17 01/16/17 01/17/17 15:00 23:00 07:00 Intake Total 640.5 ml 334 ml 205.05 ml Output Total 364 ml 297 ml 330 ml Balance 276.5 ml 37 ml -124.95 ml Results/Medications Result Diagram: 01/17/17 1355 01/17/17 0500 Results 24 hrs Laboratory Tests Test 01/16/17 17:10 01/16/17 20:51 01/17/17 01:27 01/17/17 05:00 Bedside Glucose 154 155 140 White Blood Count 7.4 # Red Blood Count 2.64 L Hemoglobin 7.8 L Hematocrit 25.4 L Mean Corpuscular Volume 96.2 Mean Corpuscular Hemoglobin 29.5 Mean Corpuscular Hemoglobin Concent 30.7 L Red Cell Distribution Width 15.7 H Platelet Count 186 Mean Platelet Volume 10.1 Neutrophils % 18.4 L Lymphocytes % 37.2 Monocytes % 35.1 H Eosinophils % 0.7 Basophils % 0.3 Nucleated Red Blood Cells % 0.0 Neutrophils # 1.4 L Lymphocytes # 2.8 Monocytes # 2.6 H Eosinophils # 0.1 Basophils # 0.0 Nucleated Red Blood Cells # 0.0 Sodium Level 144 Potassium Level 3.3 L Chloride Level 104 Carbon Dioxide Level 32 H Anion Gap 11 Blood Urea Nitrogen 25 H Creatinine 1.12 H Glucose Level 110 Calcium Level 8.9 Phosphorus Level 3.0 Magnesium Level 2.1 Vancomycin Level Trough 16.6 Digoxin Level 0.9 L Test 01/17/17 05:06 01/17/17 08:12 01/17/17 12:30 01/17/17 13:55 Bedside Glucose 91 130 131 Hemoglobin 7.8 L Hematocrit 24.9 L Medications Current Medications Propofol 100 ml @ 2.045 mls/ hr Q12H IV Last administered on 01/12/17 08:16; Admin Dose 10.227 MLS/HR; Start 01/11/17 at 01:30 Vancomycin HCl (Vancocin) 250 ml @ 125 mls/hr Q24H IVPB Last administered on 10:23; Admin Dose 125 MLS/HR; Start 01/11/17 at 09:00 Enoxaparin Sodium 70 mg 70 mg Q12 SC Last administered on 01/17/17 08:14; Admin Dose 70 MG; Start 01/11/17 at 12:30 Meropenem/Sodium Chloride 50 ml @ 100 mls/hr Q12 IVPB Last administered on 08:13; Admin Dose 100 MLS/HR; Start 01/11/17 at 14:30 Phenylephrine HCl/ Dextrose (Baudilio-Syneph/D5W) 250 ml @ 10 mls/hr TITRATE IV Last administered on 01/17/17 00:00; Admin Dose 7.5 MLS/HR; Start 01/12/17 at 06:00 Mupirocin (Bactroban) 1 applic BID TOP Last administered on 01/17/17 08:15; Admin Dose 1 APPLIC; Start 01/12/17 at 13:00 Morphine Sulfate (morphine) 1 mg Q4H PRN IV PAIN Last administered on 03:36; Admin Dose 1 MG; Start 01/12/17 at 19:00 Diagnostic Test (Pha) (Accu-Chek) 1 ea 02 XX Last administered on 01/15/17 00: 50; Admin Dose 1 EA; Start 01/14/17 at 02:00 Insulin Aspart (Novolog Insulin Pen) NOVOLOG *MILD* ALGORI... Q4 SC Last administered on 01/16/17 20:53; Admin Dose 1 UNIT; Start 01/13/17 at 09:00 Miscellaneous Information 1 ea NOTE XX ; Start 01/13/17 at 07:00 Glucose (Glutose) 15 gm Q15M PRN PO DECREASED GLUCOSE; Start 01/13/17 at 07:00 Glucose (Glutose) 22.5 gm Q15M PRN PO DECREASED GLUCOSE; Start 01/13/17 at 07: 00 Dextrose (D50w Syringe) 25 ml Q15M PRN IV DECREASED GLUCOSE; Start 01/13/17 at 07:00 Dextrose (D50w Syringe) 50 ml Q15M PRN IV DECREASED GLUCOSE; Start 01/13/17 at 07:00 Glucagon (Glucagen) 1 mg Q15M PRN IM DECREASED GLUCOSE; Start 01/13/17 at 07:00 Glucose (Glutose) 15 gm Q15M PRN BUCCAL DECREASED GLUCOSE; Start 01/13/17 at 07 :00 Carvedilol 3.125 mg 3.125 mg BID NGT Last administered on 01/14/17 09:29; Admin Dose 3.125 MG; Start 01/13/17 at 09:00 Midazolam HCl 50 ml @ 1 mls/hr TITRATE IV Last administered on 01/16/17 20:00 ; Admin Dose 2 MLS/HR; Start 01/14/17 at 12:00 Fentanyl (Sublimaze) 100 ml @ 2.5 mls/hr TITRATE IV Last administered on 02:11; Admin Dose 2 MLS/HR; Start 01/14/17 at 13:00 Nystatin (Nystatin Powder) 1 applic BID TOP Last administered on 01/17/17 08: 15; Admin Dose 1 APPLIC; Start 01/14/17 at 15:00 Fluconazole 100 mg 100 mg DAILY PO Last administered on 01/17/17 08:12; Admin Dose 100 MG; Start 01/16/17 at 09:00 Albumin Human (Albumin Human 25%) 100 ml @ 100 mls/hr Q8H IV Last administered on 01/17/17 14:35; Admin Dose 100 MLS/HR; Start 01/17/17 at 07:30 ; Stop 01/18/17 at 00:29 Assessment/Plan Chief Complaint/Hosp Course 1. shock: cardiogenic and probably septic combination : BP has improved now 2. CHF: acute on chronic probably due to systolic and diastolic heart failure 3. acute hypoxemic/ hypercapnic resp failure: s/ p re-intubation now 4. Afib with RVR 5. HX CAD 6/ HX PCI RCA 2009 7. HX HTN: now hypotensive 8. hyper K: corrected now 9. hx CLL 10. ANEMIA 11. Lactic acidosis 12. dyslipidemia 13./ hx DVT ( treated with XARELTO at home) 14. severe cardiomyopathy now with EF 20% (. EF was 50-55% on 01/01/17 per review of old records) REC: cont ICU care and vent support for now. PULM CONSULT input is greatly appreciated. will give dig prn off off NEOSYNERPHRINE DRIP now. ECHO shows severe LV dysfunction now. will consider ischemic work up once more stable . will cont coreg and inc as tolerated. CONT ICU CARE. diuresis prn. will give Diamox prn . thank you. CHINO MERCEDES MD [facility] Problems: CHINO MERCEDES MD Jan 17, 2017 15:34
--- NOTE | 2017-01-17 21:45 | CONS ---
Date/Time of Note Date/Time of Note DATE: 01/17/17 TIME: 21:42 Assessment/Plan Assessment/Plan Chief Complaint/Hosp Course CLL- ON TREATMENT post chemo TREATMENT - ON HOLD Respiratory failure. Septic shock. Acute decompensated heart failure. Nonoliguric acute kidney injury with unknown baseline creatinine. Etiology secondary to septic acute kidney injury, acute tubular necrosis. Anemia. Monitor H and H levels. Transfuse as needed. Mineral bone disorder. Diabetes. Continue Accu-Cheks and sliding scale. Coronary artery disease. Pulmonary hypertension. Pleural effusions with history of PleurX catheter, currently nonfunctional. Problems: Consultation Date/Type/Reason Admit Date/Time Jan 10, 2017 at 23:15 Initial Consult Date 01/11/17 Type of Consultation: [facility] Referring Provider: AUBREE PALMA DO 24 HR Interval Summary Free Text/Dictation all noted she is off of neosynerphrine drip now. on vent in ICU. pt is nonverbal. Exam/Review of Systems Vital Signs Vitals Vital Signs Date Time Temp Pulse Resp B/P Pulse Ox O2 Delivery O2 Flow Rate FiO2 01/17/17 21:20 76 26 100 40 01/17/17 21:00 94/53 Mechanical Ventilator 01/17/17 20:00 99.5 01/14/17 08:36 4.0 Intake and Output 01/16/17 01/16/17 01/17/17 15:00 23:00 07:00 Intake Total 640.5 ml 334 ml 205.05 ml Output Total 364 ml 297 ml 330 ml Balance 276.5 ml 37 ml -124.95 ml Exam HEENT: Head is normocephalic. NECK: Supple. HEART: Regular rate. LUNGS: Diminished breath sounds at the base. ABDOMEN: Soft, nontender to palpation. No rebound or guarding. EXTREMITIES: Negative for clubbing, cyanosis. No edema. DERMATOLOGIC: No rashes. MUSCULOSKELETAL: No joint effusion. NEUROLOGIC: No change in exam. Results Result Diagram: 01/17/17 1355 01/17/17 0500 Results 24 hrs Laboratory Tests Test 01/17/17 01:27 01/17/17 05:00 01/17/17 05:06 01/17/17 08:12 Bedside Glucose 140 91 130 White Blood Count 7.4 # Red Blood Count 2.64 L Hemoglobin 7.8 L Hematocrit 25.4 L Mean Corpuscular Volume 96.2 Mean Corpuscular Hemoglobin 29.5 Mean Corpuscular Hemoglobin Concent 30.7 L Red Cell Distribution Width 15.7 H Platelet Count 186 Mean Platelet Volume 10.1 Neutrophils % 18.4 L Lymphocytes % 37.2 Monocytes % 35.1 H Eosinophils % 0.7 Basophils % 0.3 Nucleated Red Blood Cells % 0.0 Neutrophils # 1.4 L Lymphocytes # 2.8 Monocytes # 2.6 H Eosinophils # 0.1 Basophils # 0.0 Nucleated Red Blood Cells # 0.0 Sodium Level 144 Potassium Level 3.3 L Chloride Level 104 Carbon Dioxide Level 32 H Anion Gap 11 Blood Urea Nitrogen 25 H Creatinine 1.12 H Glucose Level 110 Calcium Level 8.9 Phosphorus Level 3.0 Magnesium Level 2.1 Vancomycin Level Trough 16.6 Digoxin Level 0.9 L Test 01/17/17 12:30 01/17/17 13:55 01/17/17 16:21 01/17/17 20:28 Bedside Glucose 131 134 138 Hemoglobin 7.8 L Hematocrit 24.9 L Medications Medications Current Medications Propofol 100 ml @ 2.045 mls/ hr Q12H IV Last administered on 01/12/17 08:16; Admin Dose 10.227 MLS/HR; Start 01/11/17 at 01:30 Vancomycin HCl (Vancocin) 250 ml @ 125 mls/hr Q24H IVPB Last administered on 10:23; Admin Dose 125 MLS/HR; Start 01/11/17 at 09:00 Enoxaparin Sodium 70 mg 70 mg Q12 SC Last administered on 01/17/17 20:31; Admin Dose 70 MG; Start 01/11/17 at 12:30 Meropenem/Sodium Chloride 50 ml @ 100 mls/hr Q12 IVPB Last administered on 20:20; Admin Dose 100 MLS/HR; Start 01/11/17 at 14:30 Phenylephrine HCl/ Dextrose (Baudilio-Syneph/D5W) 250 ml @ 10 mls/hr TITRATE IV Last administered on 01/17/17 00:00; Admin Dose 7.5 MLS/HR; Start 01/12/17 at 06:00 Mupirocin (Bactroban) 1 applic BID TOP Last administered on 01/17/17 20:25; Admin Dose 1 APPLIC; Start 01/12/17 at 13:00 Morphine Sulfate (morphine) 1 mg Q4H PRN IV PAIN Last administered on 03:36; Admin Dose 1 MG; Start 01/12/17 at 19:00 Diagnostic Test (Pha) (Accu-Chek) 1 ea 02 XX Last administered on 01/15/17 00: 50; Admin Dose 1 EA; Start 01/14/17 at 02:00 Insulin Aspart (Novolog Insulin Pen) NOVOLOG *MILD* ALGORI... Q4 SC Last administered on 01/16/17 20:53; Admin Dose 1 UNIT; Start 01/13/17 at 09:00 Miscellaneous Information 1 ea NOTE XX ; Start 01/13/17 at 07:00 Glucose (Glutose) 15 gm Q15M PRN PO DECREASED GLUCOSE; Start 01/13/17 at 07:00 Glucose (Glutose) 22.5 gm Q15M PRN PO DECREASED GLUCOSE; Start 01/13/17 at 07: 00 Dextrose (D50w Syringe) 25 ml Q15M PRN IV DECREASED GLUCOSE; Start 01/13/17 at 07:00 Dextrose (D50w Syringe) 50 ml Q15M PRN IV DECREASED GLUCOSE; Start 01/13/17 at 07:00 Glucagon (Glucagen) 1 mg Q15M PRN IM DECREASED GLUCOSE; Start 01/13/17 at 07:00 Glucose (Glutose) 15 gm Q15M PRN BUCCAL DECREASED GLUCOSE; Start 01/13/17 at 07 :00 Carvedilol 3.125 mg 3.125 mg BID NGT Last administered on 01/14/17 09:29; Admin Dose 3.125 MG; Start 01/13/17 at 09:00 Midazolam HCl 50 ml @ 1 mls/hr TITRATE IV Last administered on 01/16/17 20:00 ; Admin Dose 2 MLS/HR; Start 01/14/17 at 12:00 Fentanyl (Sublimaze) 100 ml @ 2.5 mls/hr TITRATE IV Last administered on 16:21; Admin Dose 2 MLS/HR; Start 01/14/17 at 13:00 Nystatin (Nystatin Powder) 1 applic BID TOP Last administered on 01/17/17 20: 26; Admin Dose 1 APPLIC; Start 01/14/17 at 15:00 Fluconazole 100 mg 100 mg DAILY PO Last administered on 01/17/17 08:12; Admin Dose 100 MG; Start 01/16/17 at 09:00 Albumin Human (Albumin Human 25%) 100 ml @ 100 mls/hr Q8H IV Last administered on 01/17/17 14:35; Admin Dose 100 MLS/HR; Start 01/17/17 at 07:30 ; Stop 01/18/17 at 00:29 SE ARY MD Jan 17, 2017 21:45
[2017-01-18] VITALS (34 sets, daily range): BP systolic 81–147; BP diastolic 42–67; PULSE 69–97; RESP 15–33
[2017-01-18] MEDS: INSULIN ASPART [NOVOLOG] 3 ML PEN SC SCH ×6 (01:00→20:37)
[2017-01-18] MEDS: PROPOFOL 100 ML IV SCH ×2 (01:30→13:01)
[2017-01-18] MEDS: ACCU-CHEK XX SCH (02:00)
[2017-01-18 05:15] LABS: ABNORMAL IP MESSAGE 1; HEMATOCRIT 23.3 % (37.0-47.0); HEMOGLOBIN 7.2 g/dl (12.0-16.0); MEAN CORPUSCULAR HEMOGLOBIN 29.8 pg (29.0-33.0); MEAN CORPUSCULAR HGB CONC 30.9 g/dl (32.0-37.0); MEAN CORPUSCULAR VOLUME 96.3 fl (82.0-101.0); MEAN PLATELET VOLUME 10.4 fl (7.4-10.4); PLATELET COUNT 151 10^3/UL (140-415); RED BLOOD COUNT 2.42 10^6/ul (4.20-5.40); RED CELL DISTRIBUTION WIDTH 15.6 % (11.5-14.5); WHITE BLOOD COUNT 5.2 10^3/ul (4.8-10.8)
[2017-01-18 05:37] LABS: MAGNESIUM 2.2 mg/dl (1.7-2.5); PHOSPHORUS 2.7 mg/dl (2.5-4.9)
[2017-01-18 05:40] LABS: ALBUMIN 3.8 g/dl (3.3-4.9); ALBUMIN/GLOBULIN RATIO 1.8; BILIRUBIN,INDIRECT 0.3 mg/dl (0-1.1); BILIRUBIN,TOTAL 0.3 mg/dl (0.2-1.3); CREATININE 0.96 mg/dl (0.44-1.00); POTASSIUM 3.7 mmol/L (3.5-5.1); TOTAL PROTEIN 5.9 g/dl (6.1-8.1)
[2017-01-18 05:54] LABS: POSITIVE DIFF @See below
--- NOTE | 2017-01-18 07:34 | PN ---
DATE: 01/18/2017 SUBJECTIVE DATA: The patient remains critically ill. The patient is unable to be extubated. No other acute events noted. No hemoptysis, hematemesis, hematochezia. No other events noted. OBJECTIVE DATA: Blood pressure is 101/45, respirations 20, pulse 88, temperature 98.9. HEENT: Head is normocephalic. NECK: Supple. HEART: Regular rate. LUNGS: Show diminished breath sounds at the base. ABDOMEN: Soft, nontender to palpation. No rebound or guarding. EXTREMITIES: Negative for clubbing, cyanosis. Positive edema. DERMATOLOGIC: Clean. No rashes. MUSCULOSKELETAL: No joint effusion. NEUROLOGIC: Unchanged exam. MEDICATIONS: Reviewed. LABORATORY AND DIAGNOSTIC DATA: Shows sodium 145, potassium 3.7, chloride 106, BUN 25, creatinine 0.96. White count 5.2, hemoglobin 10.2, crit of 23.3, and platelet count is 151. ASSESSMENT AND PLAN: 1. Ventilatory-dependent respiratory failure. Vent settings and ABGs reviewed. Continue to monitor. 2. Sepsis, status post shock. The patient is currently off pressor support. Continue intravenous antibiotics. 3. Decompensated heart failure. We will resume diuretic therapy. Monitor closely. 4. Nonoliguric acute kidney injury. Etiology secondary to septic acute kidney injury. Renal function has been fluctuating. Continue to monitor. 5. Anemia. Hemoglobin levels are dropping. We will continue to monitor. Defer to Hematology. Transfuse as needed 6. Mineral bone disorder. Monitor calcium and phosphorus levels. 7. Diabetes. Continue Accu-Cheks and insulin sliding scale. 8. Chronic lymphocytic leukemia. 9. Coronary artery disease. Continue current medical management. 10. Pulmonary hypertension. Continue current treatment plan. 11. Pleural effusion with history PleurX catheter, currently nonfunctional. Continue to monitor. 12. Lower extremity deep vein thrombosis. Continue Lovenox. 13. Acute encephalopathy. Continue to monitor H and H levels. 14. Gastrointestinal and deep venous thrombosis prophylaxis. Please note, I spent over 30 minutes of critical care time with this patient. Dictated By: Timo Mccracken DO /linette/annetta /Document#: [id number]
[2017-01-18 08:14] LABS: AADO2 Arterial 104.9 mmHg (7.0-24.0); Allen Test ACCEPTAB; Arterial Base Excess 3.8 mmol/L (-3.0-3); Arterial COHb 0.3 % (0.0-3.0); Arterial Fraction of Oxyhgb 97.8 % (93.0-99.0); Arterial HCO3 27.6 mmol/L (22.0-26.0); Arterial MetHb 0.2 % (0.0-1.5); Arterial Total Hemglobin 7.8 g/dl (12.0-18.0); MODE VENT - AC
[2017-01-18] MEDS: VANCOMYCIN 1 GM in NS 250 ML IVPB SCH (08:50)
[2017-01-18] MEDS: FLUCONAZOLE 100 MG TAB PO SCH (08:53)
[2017-01-18] MEDS: FUROSEMIDE 40 MG INJ IV SCH (08:53)
[2017-01-18] MEDS: MUPIROCIN 2% 22 GM OINT TOP SCH ×2 (08:54→20:32)
[2017-01-18] MEDS: BALSAM PERU/CASTOR OIL 60 GM TUBE TOP SCH ×2 (08:56→20:32)
[2017-01-18] MEDS: NYSTATIN 30 GM POWDER BTL TOP SCH ×2 (08:57→20:33)
--- NOTE | 2017-01-18 09:02 | RADRPT ---
PROCEDURE: XR Chest. CLINICAL INDICATION: Shortness of breath. TECHNIQUE: Single frontal view. COMPARISON: 01/16/2017. FINDINGS: The endotracheal tube, nasogastric tube, and left internal jugular vein catheter are in satisfactory chin. Air space disease at the lung bases and small bilateral pleural effusions are unchanged. The heart is enlarged. There is calcification in the aorta consistent with atherosclerosis. There is no pneumothorax. There is right shoulder calcific tendonitis. IMPRESSION: 1. Change from 01/16/2017. RPTAT: QQ .Noe Aragon MD, MD Date Time Electronically viewed and signed by .Noe Aragon MD, MD on 01/18/2017 09:02 .R/
[2017-01-18] MEDS: MIDAZOLAM (DRIP) 50 mg/50 mL 50 ML IV SCH ×2 (09:05→16:58)
[2017-01-18] MEDS: ENOXAPARIN 80 MG/0.8 ML SYG SC SCH ×2 (09:07→20:38)
--- NOTE | 2017-01-18 09:28 | CONS ---
Date/Time of Note Date/Time of Note DATE: 01/18/17 TIME: 09:24 Consult Date/Type/Reason Admit Date/Time Jan 10, 2017 at 23:15 Initial Consult Date 01/11/17 Type of Consultation: cardiology Ordering Provider: AUBREE PALMA DO Subjective CARDIOLOGY/ critical care follow up note: S: D/W staff and rhythm was reviewed. pt remains in afib. HR has been under good control she is off of neosynerphrine drip now. still on vent in ICU. pt is nonverbal. her old records were extensively reviewed pt's EF was normal at 50-55% on 01/01/17 CV checked today about 8-12 now O: gen: intubated on vent HEENT: Pupils are equal NECK: no stridor. CV: irregularly irregular. systolic murmur Chest: s/p pelurodex right side GI: soft NT ND. no rebound. no guarding ext: + trace LE edema neuro:Opens her eyes and respond appropriately Derm: multiple echymosis psych; calm now ECG reviewed: afib RVR. ant infarct. CXR reviewed ECHO 01/11/17reviewed personally: 1. Normal left ventricular cavity size. Normal left ventricular wall thickness. Severe left ventricular systolic dysfunction. Ejection fraction is visually estimated at 25 %. Multiple segmental wall motion abnormalities. 2. There is mild enlargement of left atrium. 3. Mild mitral leaflet calcification. Mild mitral annular calcification. Mild mitral valve regurgitation. 4. Aortic sclerosis without stenosis. Trace aortic valve regurgitation. 5. Normal appearance of the tricuspid valve. Estimated peak PA systolic pressure 53 mmHg. There is mild tricuspid regurgitation. 6. Inferior vena cava without respiratory collapse, however, patient on ventilator. ECHO 01/01/17: per review of old charts. EF 50-55%. LAE. MOD/ SEVERE MR. Objective Vital Signs Date Time Temp Pulse Resp B/P Pulse Ox O2 Delivery O2 Flow Rate FiO2 01/18/17 08:00 71 01/18/17 06:00 20 101/45 100 Mechanical Ventilator 01/18/17 05:19 40 01/18/17 04:00 98.9 01/14/17 08:36 4.0 Intake and Output 01/17/17 01/17/17 01/18/17 15:00 23:00 07:00 Intake Total 644 ml 363.5 ml 294.5 ml Output Total 275 ml 250 ml 190 ml Balance 369 ml 113.5 ml 104.5 ml Results/Medications Result Diagram: 01/18/17 0400 01/18/17 0400 Results 24 hrs Laboratory Tests Test 01/17/17 12:30 01/17/17 13:55 01/17/17 16:21 01/17/17 20:28 Bedside Glucose 131 134 138 Hemoglobin 7.8 L Hematocrit 24.9 L Test 01/18/17 01:03 01/18/17 04:00 01/18/17 05:15 01/18/17 07:00 Bedside Glucose 133 134 White Blood Count 5.2 # Red Blood Count 2.42 L Hemoglobin 7.2 L Hematocrit 23.3 L Mean Corpuscular Volume 96.3 Mean Corpuscular Hemoglobin 29.8 Mean Corpuscular Hemoglobin Concent 30.9 L Red Cell Distribution Width 15.6 H Platelet Count 151 Mean Platelet Volume 10.4 Neutrophils % Lymphocytes % Monocytes % Eosinophils % Basophils % Nucleated Red Blood Cells % 0.0 Neutrophils # Lymphocytes # Monocytes # Eosinophils # Basophils # Nucleated Red Blood Cells # Sodium Level 145 H Potassium Level 3.7 Chloride Level 106 Carbon Dioxide Level 30 Anion Gap 13 Blood Urea Nitrogen 25 H Creatinine 0.96 Glucose Level 120 Calcium Level 9.0 Phosphorus Level 2.7 Magnesium Level 2.2 Total Bilirubin 0.3 Direct Bilirubin 0.00 Indirect Bilirubin 0.3 Aspartate Amino Transf (AST/SGOT) 34 Alanine Aminotransferase (ALT/SGPT) 32 Alkaline Phosphatase 43 B-Type Natriuretic Peptide 7800 H Total Protein 5.9 L Albumin 3.8 Globulin 2.10 Albumin/Globulin Ratio 1.80 Digoxin Level 1.0 Blood Gas Specimen Source Blood arterial Arterial Blood Date Drawn 01/18/2017 7:30:39 AM Arterial Blood pH (Temp corrected) 7.480 H Arterial Blood pCO2 (Temp correct) 37.9 Arterial Blood pO2 (Temp corrected) 136.7 H Arterial Blood HCO3 27.6 H Arterial Blood Base Excess 3.8 H Arterial Blood Oxygen Saturation 98.3 Blayne Test ACCEPTAB Arterial Blood Gas Puncture Site Right Radial Arterial Blood Carboxyhemoglobin 0.3 Arterial Blood Methemoglobin 0.2 Blood Gas A-a O2 Differential 104.9 H Oxyhemoglobin Percent 97.8 Total Hemoglobin 7.8 L Blood Gas Temperature 37.0 Blood Gas Respiration Rate 16.0 Blood Gas Actual Respiration Rate 16 Blood Gas Modality VENT - AC FiO2 40.0 Blood Gas Tidal Volume 400.0 Blood Gas Low PEEP Setting 5.0 Blood Gas Notified Whom JLD Blood Gas Notified Time 01/18/2017 8:14:20 AM Test 01/18/17 09:10 Bedside Glucose 141 Medications Current Medications Propofol 100 ml @ 2.045 mls/ hr Q12H IV Last administered on 01/12/17 08:16; Admin Dose 10.227 MLS/HR; Start 01/11/17 at 01:30 Vancomycin HCl (Vancocin) 250 ml @ 125 mls/hr Q24H IVPB Last administered on 08:50; Admin Dose 125 MLS/HR; Start 01/11/17 at 09:00 Enoxaparin Sodium 70 mg 70 mg Q12 SC Last administered on 01/18/17 09:07; Admin Dose 70 MG; Start 01/11/17 at 12:30 Meropenem/Sodium Chloride 50 ml @ 100 mls/hr Q12 IVPB Last administered on 20:20; Admin Dose 100 MLS/HR; Start 01/11/17 at 14:30 Phenylephrine HCl/ Dextrose (Baudilio-Syneph/D5W) 250 ml @ 10 mls/hr TITRATE IV Last administered on 01/17/17 00:00; Admin Dose 7.5 MLS/HR; Start 01/12/17 at 06:00 Mupirocin (Bactroban) 1 applic BID TOP Last administered on 01/18/17 08:54; Admin Dose 1 APPLIC; Start 01/12/17 at 13:00 Morphine Sulfate (morphine) 1 mg Q4H PRN IV PAIN Last administered on 03:36; Admin Dose 1 MG; Start 01/12/17 at 19:00 Diagnostic Test (Pha) (Accu-Chek) 1 ea 02 XX Last administered on 01/15/17 00: 50; Admin Dose 1 EA; Start 01/14/17 at 02:00 Insulin Aspart (Novolog Insulin Pen) NOVOLOG *MILD* ALGORI... Q4 SC Last administered on 01/18/17 09:18; Admin Dose 1 UNIT; Start 01/13/17 at 09:00 Miscellaneous Information 1 ea NOTE XX ; Start 01/13/17 at 07:00 Glucose (Glutose) 15 gm Q15M PRN PO DECREASED GLUCOSE; Start 01/13/17 at 07:00 Glucose (Glutose) 22.5 gm Q15M PRN PO DECREASED GLUCOSE; Start 01/13/17 at 07: 00 Dextrose (D50w Syringe) 25 ml Q15M PRN IV DECREASED GLUCOSE; Start 01/13/17 at 07:00 Dextrose (D50w Syringe) 50 ml Q15M PRN IV DECREASED GLUCOSE; Start 01/13/17 at 07:00 Glucagon (Glucagen) 1 mg Q15M PRN IM DECREASED GLUCOSE; Start 01/13/17 at 07:00 Glucose (Glutose) 15 gm Q15M PRN BUCCAL DECREASED GLUCOSE; Start 01/13/17 at 07 :00 Carvedilol 3.125 mg 3.125 mg BID NGT Last administered on 01/14/17 09:29; Admin Dose 3.125 MG; Start 01/13/17 at 09:00 Midazolam HCl 50 ml @ 1 mls/hr TITRATE IV Last administered on 01/18/17 09:05 ; Admin Dose 1 MLS/HR; Start 01/14/17 at 12:00 Fentanyl (Sublimaze) 100 ml @ 2.5 mls/hr TITRATE IV Last administered on 16:21; Admin Dose 2 MLS/HR; Start 01/14/17 at 13:00 Nystatin (Nystatin Powder) 1 applic BID TOP Last administered on 01/18/17 08: 57; Admin Dose 1 APPLIC; Start 01/14/17 at 15:00 Fluconazole (Diflucan) 100 mg DAILY PO Last administered on 01/18/17 08:53; Admin Dose 100 MG; Start 01/16/17 at 09:00 Furosemide (Lasix) 40 mg DAILY IV Last administered on 01/18/17 08:53; Admin Dose 40 MG; Start 01/18/17 at 09:00 Assessment/Plan Chief Complaint/Hosp Course 1. shock: cardiogenic and septic combination : BP has improved now 2. CHF: acute on chronic probably due to systolic and diastolic heart failure 3. acute hypoxemic/ hypercapnic resp failure: s/ p re-intubation now 4. Afib with RVR: HR is under much better control now 5. HX CAD 6/ HX PCI RCA 2009 7. HX HTN: now hypotensive 8. hyper K: corrected now 9. hx CLL 10. ANEMIA 11. Lactic acidosis 12. dyslipidemia 13./ hx DVT ( treated with XARELTO at home). on lovenox here. 14. severe cardiomyopathy now with EF 20% (. EF was 50-55% on 01/01/17 per review of old records) REC: cont ICU care and vent support for now. PULM CONSULT input is greatly appreciated. will give dig prn. currently HR is under good control. off off NEOSYNERPHRINE DRIP now. ECHO shows severe LV dysfunction now. will consider ischemic work up once more stable and extubated. coreg as tolerated. CONT ICU CARE. lasix transfusion per hem/onc rec. will check stool OB thank you. CHINO MERCEDES MD [facility] Problems: CHINO MERCEDES MD Jan 18, 2017 09:28
--- NOTE | 2017-01-18 11:14 | CONS ---
Date/Time of Note Date/Time of Note DATE: 01/18/17 TIME: 11:08 Assessment/Plan Assessment/Plan Chief Complaint/Hosp Course Consult dictated #[id number] Problems: Additional Assessment/Plan Ventilator setting; AC of 16, tidal volume 400, PEEP of 5, 30% FiO2. Patient is currently on fentanyl drip 25 mics per hour and Versed 1 mg/h. Chest x-ray was reviewed from today which is again showing small bilateral pleural effusions with bibasilar subsegmental atelectasis. Endotracheal tube is at an adequate level. Next Assessment and recommendations; 1. Patient admitted with pneumonia and sepsis as well as CHF exacerbation. 2. History of chronic lymphocytic leukemia. 3. Renal insufficiency with marked improvement in serum creatinine. 4. History of recurrent pleural effusion status post Pleurx catheter went on the right side outside of this facility. 5. Anemia and thrombocytopenia. Discontinue further sedation. Once the patient is off sedative effect she will be evaluated for possible weaning from ventilator. I did have a detailed discussion with the patient's [id number] yesterday regarding possible need for tracheostomy. Consultation Date/Type/Reason Admit Date/Time Jan 10, 2017 at 23:15 Initial Consult Date 01/11/17 Type of Consultation: Pulmonary/critical care Referring Provider: AUBREE PALMA DO 24 HR Interval Summary Free Text/Dictation Condition remains critical. Still requiring full ventilator support. Patient however has remained hemodynamically stable. Despite being on sedation patient is quite awake. General exam; elderly woman, orally intubated, awake, currently in no distress. Exam/Review of Systems Vital Signs Vitals Vital Signs Date Time Temp Pulse Resp B/P Pulse Ox O2 Delivery O2 Flow Rate FiO2 01/18/17 10:00 77 16 100/45 100 Mechanical Ventilator 01/18/17 08:00 98.5 01/18/17 05:19 40 01/14/17 08:36 4.0 Intake and Output 01/17/17 01/17/17 01/18/17 15:00 23:00 07:00 Intake Total 644 ml 363.5 ml 314.5 ml Output Total 275 ml 250 ml 210 ml Balance 369 ml 113.5 ml 104.5 ml Exam HEENT exam; supple neck, positive JVD. No lymphadenopathy. Midline trachea. No thyromegaly. Patient is edentulous. Orally intubated. Pupils are equal and reactive to light. Chest exam; diminished breath sound lung bases bilaterally. S1-S2 audible, no murmurs. Regular rhythm. There is a Pleurx catheter in the right lateral chest wall. Abdomen exam; soft, no organomegaly. Bowel sounds audible. Extremity exam; trace edema. [employer] exam; patient is awake. Results Result Diagram: 01/18/17 0400 01/18/17 0400 Results 24 hrs Laboratory Tests Test 01/17/17 12:30 01/17/17 13:55 01/17/17 16:21 01/17/17 20:28 Bedside Glucose 131 134 138 Hemoglobin 7.8 L Hematocrit 24.9 L Test 01/18/17 01:03 01/18/17 04:00 01/18/17 05:15 01/18/17 07:00 Bedside Glucose 133 134 White Blood Count 5.2 # Red Blood Count 2.42 L Hemoglobin 7.2 L Hematocrit 23.3 L Mean Corpuscular Volume 96.3 Mean Corpuscular Hemoglobin 29.8 Mean Corpuscular Hemoglobin Concent 30.9 L Red Cell Distribution Width 15.6 H Platelet Count 151 Mean Platelet Volume 10.4 Neutrophils % Lymphocytes % Monocytes % Eosinophils % Basophils % Nucleated Red Blood Cells % 0.0 Neutrophils # Lymphocytes # Monocytes # Eosinophils # Basophils # Nucleated Red Blood Cells # Sodium Level 145 H Potassium Level 3.7 Chloride Level 106 Carbon Dioxide Level 30 Anion Gap 13 Blood Urea Nitrogen 25 H Creatinine 0.96 Glucose Level 120 Calcium Level 9.0 Phosphorus Level 2.7 Magnesium Level 2.2 Total Bilirubin 0.3 Direct Bilirubin 0.00 Indirect Bilirubin 0.3 Aspartate Amino Transf (AST/SGOT) 34 Alanine Aminotransferase (ALT/SGPT) 32 Alkaline Phosphatase 43 B-Type Natriuretic Peptide 7800 H Total Protein 5.9 L Albumin 3.8 Globulin 2.10 Albumin/Globulin Ratio 1.80 Digoxin Level 1.0 Blood Gas Specimen Source Blood arterial Arterial Blood Date Drawn 01/18/2017 7:30:39 AM Arterial Blood pH (Temp corrected) 7.480 H Arterial Blood pCO2 (Temp correct) 37.9 Arterial Blood pO2 (Temp corrected) 136.7 H Arterial Blood HCO3 27.6 H Arterial Blood Base Excess 3.8 H Arterial Blood Oxygen Saturation 98.3 Blayne Test ACCEPTAB Arterial Blood Gas Puncture Site Right Radial Arterial Blood Carboxyhemoglobin 0.3 Arterial Blood Methemoglobin 0.2 Blood Gas A-a O2 Differential 104.9 H Oxyhemoglobin Percent 97.8 Total Hemoglobin 7.8 L Blood Gas Temperature 37.0 Blood Gas Respiration Rate 16.0 Blood Gas Actual Respiration Rate 16 Blood Gas Modality VENT - AC FiO2 40.0 Blood Gas Tidal Volume 400.0 Blood Gas Low PEEP Setting 5.0 Blood Gas Notified Whom JLD Blood Gas Notified Time 01/18/2017 8:14:20 AM Test 01/18/17 09:10 Bedside Glucose 141 Medications Medications Current Medications Propofol 100 ml @ 2.045 mls/ hr Q12H IV Last administered on 01/12/17 08:16; Admin Dose 10.227 MLS/HR; Start 01/11/17 at 01:30 Vancomycin HCl (Vancocin) 250 ml @ 125 mls/hr Q24H IVPB Last administered on 08:50; Admin Dose 125 MLS/HR; Start 01/11/17 at 09:00 Enoxaparin Sodium 70 mg 70 mg Q12 SC Last administered on 01/18/17 09:07; Admin Dose 70 MG; Start 01/11/17 at 12:30 Meropenem/Sodium Chloride 50 ml @ 100 mls/hr Q12 IVPB Last administered on 20:20; Admin Dose 100 MLS/HR; Start 01/11/17 at 14:30 Phenylephrine HCl/ Dextrose (Baudilio-Syneph/D5W) 250 ml @ 10 mls/hr TITRATE IV Last administered on 01/17/17 00:00; Admin Dose 7.5 MLS/HR; Start 01/12/17 at 06:00 Mupirocin (Bactroban) 1 applic BID TOP Last administered on 01/18/17 08:54; Admin Dose 1 APPLIC; Start 01/12/17 at 13:00 Morphine Sulfate (morphine) 1 mg Q4H PRN IV PAIN Last administered on 03:36; Admin Dose 1 MG; Start 01/12/17 at 19:00 Diagnostic Test (Pha) (Accu-Chek) 1 ea 02 XX Last administered on 01/15/17 00: 50; Admin Dose 1 EA; Start 01/14/17 at 02:00 Insulin Aspart (Novolog Insulin Pen) NOVOLOG *MILD* ALGORI... Q4 SC Last administered on 01/18/17 09:18; Admin Dose 1 UNIT; Start 01/13/17 at 09:00 Miscellaneous Information 1 ea NOTE XX ; Start 01/13/17 at 07:00 Glucose (Glutose) 15 gm Q15M PRN PO DECREASED GLUCOSE; Start 01/13/17 at 07:00 Glucose (Glutose) 22.5 gm Q15M PRN PO DECREASED GLUCOSE; Start 01/13/17 at 07: 00 Dextrose (D50w Syringe) 25 ml Q15M PRN IV DECREASED GLUCOSE; Start 01/13/17 at 07:00 Dextrose (D50w Syringe) 50 ml Q15M PRN IV DECREASED GLUCOSE; Start 01/13/17 at 07:00 Glucagon (Glucagen) 1 mg Q15M PRN IM DECREASED GLUCOSE; Start 01/13/17 at 07:00 Glucose (Glutose) 15 gm Q15M PRN BUCCAL DECREASED GLUCOSE; Start 01/13/17 at 07 :00 Carvedilol 3.125 mg 3.125 mg BID NGT Last administered on 01/14/17 09:29; Admin Dose 3.125 MG; Start 01/13/17 at 09:00 Midazolam HCl 50 ml @ 1 mls/hr TITRATE IV Last administered on 01/18/17 09:05 ; Admin Dose 1 MLS/HR; Start 01/14/17 at 12:00 Fentanyl (Sublimaze) 100 ml @ 2.5 mls/hr TITRATE IV Last administered on 16:21; Admin Dose 2 MLS/HR; Start 01/14/17 at 13:00 Nystatin (Nystatin Powder) 1 applic BID TOP Last administered on 01/18/17 08: 57; Admin Dose 1 APPLIC; Start 01/14/17 at 15:00 Fluconazole (Diflucan) 100 mg DAILY PO Last administered on 01/18/17 08:53; Admin Dose 100 MG; Start 01/16/17 at 09:00 Furosemide (Lasix) 40 mg DAILY IV Last administered on 01/18/17 08:53; Admin Dose 40 MG; Start 01/18/17 at 09:00 RADHA CAMACHO Jan 18, 2017 11:13
[2017-01-18] MEDS: MEROPENEM 500MG/50 ML (PMX) 50 ML IVPB SCH ×2 (11:19→20:30)
--- NOTE | 2017-01-18 12:21 | PN ---
DATE: SUBJECTIVE DATA: No acute changes. The patient is intubated, sedated, and in no distress. Afebrile. Temperature 98.5, pulse 82, respirations 19, blood pressure 85/51, saturation 100 percent on 40 FiO2. LABORATORY AND DIAGNOSTIC DATA: WBC 5.2, H and H 7.2 and 23.3, platelets 151, BUN 25, creatinine 0.96. Chest x-ray this morning revealed no changes. Indwelling left IJ triple lumen catheter, endotracheal tube, NG tube, Sifuentes, right sided PleurX. ANTIMICROBIALS: Fluconazole, oral nystatin, vancomycin, meropenem. PHYSICAL EXAMINATION: GENERAL: This is a well-developed, well-nourished, elderly woman, who is intubated, sedated, and in no distress. HEENT: Head atraumatic, normocephalic. Sclerae anicteric. Buccal mucosa dry. NECK: Supple. CHEST: Rise symmetrical. Breath sounds diminished at the bases. HEART: S1, S2. ABDOMEN: Soft, bowel sounds present. EXTREMITIES: With trace edema. ASSESSMENT: 1. Sepsis status post shock, the patient is off pressors. 2. Acute respiratory failure. 3. Healthcare-associated pneumonia possibly aspiration event, status post reintubated. 4. Dominga albicans urinary tract infection. 5. Methicillin-resistant Staphylococcus aureus nares colonization. 6. Chronic lymphocytic leukemia. 7. Recurrent pleural effusions, status postop PleurX catheter placement, no drainage. 8. Diabetes. 9. History of atrial fibrillation. 10. DVT. PLAN: The patient remains hemodynamically stable off pressors since a.m. Vital signs stable. No fevers. She is covered with appropriate antibiotics. Continue vent management as per pulmonary team. Dictated By: Elvin Owusu NP /linette/eloisa /Document#: [id number]
[2017-01-18] MEDS: FENTAnyl (DRIP) 1000 mcg/100mL 100 ML IV SCH (16:58)
[2017-01-19] VITALS (47 sets, daily range): BP systolic 83–114; BP diastolic 42–81; PULSE 65–96; RESP 0–32
--- NOTE | 2017-01-19 00:12 | CONS ---
Date/Time of Note Date/Time of Note DATE: 01/19/17 TIME: 00:10 Assessment/Plan Assessment/Plan Chief Complaint/Hosp Course CLL- ON TREATMENT post chemo TREATMENT - ON HOLD ANEMIA MONITOR BLOOD COUNT CLOSELY OBSERVE FOR BLEEDING AND HEMOLYSIS STOOL OB -P TRANSFUSE PRBC Respiratory failure. Septic shock. Acute decompensated heart failure. Nonoliguric acute kidney injury with unknown baseline creatinine. Etiology secondary to septic acute kidney injury, acute tubular necrosis. Mineral bone disorder. Diabetes. Continue Accu-Cheks and sliding scale. Coronary artery disease. Pulmonary hypertension. Pleural effusions with history of PleurX catheter, currently nonfunctional. Problems: Consultation Date/Type/Reason Admit Date/Time Jan 10, 2017 at 23:15 Initial Consult Date 01/11/17 Type of Consultation: [facility] Referring Provider: AUBREE PALMA DO 24 HR Interval Summary Free Text/Dictation ALL NOTED H/H - GOING DOWN NO ACTIVE BLEEDING Exam/Review of Systems Vital Signs Vitals Vital Signs Date Time Temp Pulse Resp B/P Pulse Ox O2 Delivery O2 Flow Rate FiO2 01/18/17 23:20 79 16 100 40 01/18/17 23:00 81/45 Mechanical Ventilator 01/18/17 20:00 97.7 Intake and Output 01/18/17 01/18/17 01/19/17 15:00 23:00 07:00 Intake Total 493.9 ml 201.0 ml Output Total 1750 ml 400 ml Balance -1256.1 ml -199.0 ml Exam HEENT: Head is normocephalic. NECK: Supple. HEART: Regular rate. LUNGS: Diminished breath sounds at the base. ABDOMEN: Soft, nontender to palpation. No rebound or guarding. EXTREMITIES: Negative for clubbing, cyanosis. No edema. DERMATOLOGIC: No rashes. MUSCULOSKELETAL: No joint effusion. NEUROLOGIC: No change in exam. Results Result Diagram: 01/18/17 0400 01/18/17 0400 Results 24 hrs Laboratory Tests Test 01/18/17 01:03 01/18/17 04:00 01/18/17 05:15 01/18/17 07:00 Bedside Glucose 133 134 White Blood Count 5.2 # Red Blood Count 2.42 L Hemoglobin 7.2 L Hematocrit 23.3 L Mean Corpuscular Volume 96.3 Mean Corpuscular Hemoglobin 29.8 Mean Corpuscular Hemoglobin Concent 30.9 L Red Cell Distribution Width 15.6 H Platelet Count 151 Mean Platelet Volume 10.4 Neutrophils % Lymphocytes % Monocytes % Eosinophils % Basophils % Nucleated Red Blood Cells % 0.0 Neutrophils # Lymphocytes # Monocytes # Eosinophils # Basophils # Nucleated Red Blood Cells # Sodium Level 145 H Potassium Level 3.7 Chloride Level 106 Carbon Dioxide Level 30 Anion Gap 13 Blood Urea Nitrogen 25 H Creatinine 0.96 Glucose Level 120 Calcium Level 9.0 Phosphorus Level 2.7 Magnesium Level 2.2 Total Bilirubin 0.3 Direct Bilirubin 0.00 Indirect Bilirubin 0.3 Aspartate Amino Transf (AST/SGOT) 34 Alanine Aminotransferase (ALT/SGPT) 32 Alkaline Phosphatase 43 B-Type Natriuretic Peptide 7800 H Total Protein 5.9 L Albumin 3.8 Globulin 2.10 Albumin/Globulin Ratio 1.80 Digoxin Level 1.0 Blood Gas Specimen Source Blood arterial Arterial Blood Date Drawn 01/18/2017 7:30:39 AM Arterial Blood pH (Temp corrected) 7.480 H Arterial Blood pCO2 (Temp correct) 37.9 Arterial Blood pO2 (Temp corrected) 136.7 H Arterial Blood HCO3 27.6 H Arterial Blood Base Excess 3.8 H Arterial Blood Oxygen Saturation 98.3 Blayne Test ACCEPTAB Arterial Blood Gas Puncture Site Right Radial Arterial Blood Carboxyhemoglobin 0.3 Arterial Blood Methemoglobin 0.2 Blood Gas A-a O2 Differential 104.9 H Oxyhemoglobin Percent 97.8 Total Hemoglobin 7.8 L Blood Gas Temperature 37.0 Blood Gas Respiration Rate 16.0 Blood Gas Actual Respiration Rate 16 Blood Gas Modality VENT - AC FiO2 40.0 Blood Gas Tidal Volume 400.0 Blood Gas Low PEEP Setting 5.0 Blood Gas Notified Whom JLD Blood Gas Notified Time 01/18/2017 8:14:20 AM Test 01/18/17 09:10 01/18/17 13:00 01/18/17 18:17 01/18/17 20:34 Bedside Glucose 141 133 160 149 Medications Medications Current Medications Propofol 100 ml @ 2.045 mls/ hr Q12H IV Last administered on 01/12/17 08:16; Admin Dose 10.227 MLS/HR; Start 01/11/17 at 01:30 Vancomycin HCl (Vancocin) 250 ml @ 125 mls/hr Q24H IVPB Last administered on 08:50; Admin Dose 125 MLS/HR; Start 01/11/17 at 09:00 Enoxaparin Sodium 70 mg 70 mg Q12 SC Last administered on 01/18/17 20:38; Admin Dose 70 MG; Start 01/11/17 at 12:30 Meropenem/Sodium Chloride 50 ml @ 100 mls/hr Q12 IVPB Last administered on 20:30; Admin Dose 100 MLS/HR; Start 01/11/17 at 14:30 Phenylephrine HCl/ Dextrose (Baudilio-Syneph/D5W) 250 ml @ 10 mls/hr TITRATE IV Last administered on 01/17/17 00:00; Admin Dose 7.5 MLS/HR; Start 01/12/17 at 06:00 Mupirocin (Bactroban) 1 applic BID TOP Last administered on 01/18/17 20:32; Admin Dose 1 APPLIC; Start 01/12/17 at 13:00 Morphine Sulfate (morphine) 1 mg Q4H PRN IV PAIN Last administered on 03:36; Admin Dose 1 MG; Start 01/12/17 at 19:00 Diagnostic Test (Pha) (Accu-Chek) 1 ea 02 XX Last administered on 01/15/17 00: 50; Admin Dose 1 EA; Start 01/14/17 at 02:00 Insulin Aspart (Novolog Insulin Pen) NOVOLOG *MILD* ALGORI... Q4 SC Last administered on 01/18/17 20:37; Admin Dose 1 UNIT; Start 01/13/17 at 09:00 Miscellaneous Information 1 ea NOTE XX ; Start 01/13/17 at 07:00 Glucose (Glutose) 15 gm Q15M PRN PO DECREASED GLUCOSE; Start 01/13/17 at 07:00 Glucose (Glutose) 22.5 gm Q15M PRN PO DECREASED GLUCOSE; Start 01/13/17 at 07: 00 Dextrose (D50w Syringe) 25 ml Q15M PRN IV DECREASED GLUCOSE; Start 01/13/17 at 07:00 Dextrose (D50w Syringe) 50 ml Q15M PRN IV DECREASED GLUCOSE; Start 01/13/17 at 07:00 Glucagon (Glucagen) 1 mg Q15M PRN IM DECREASED GLUCOSE; Start 01/13/17 at 07:00 Glucose (Glutose) 15 gm Q15M PRN BUCCAL DECREASED GLUCOSE; Start 01/13/17 at 07 :00 Carvedilol 3.125 mg 3.125 mg BID NGT Last administered on 01/14/17 09:29; Admin Dose 3.125 MG; Start 01/13/17 at 09:00 Midazolam HCl 50 ml @ 1 mls/hr TITRATE IV Last administered on 01/18/17 16:58 ; Admin Dose 1 MLS/HR; Start 01/14/17 at 12:00 Fentanyl (Sublimaze) 100 ml @ 2.5 mls/hr TITRATE IV Last administered on 16:58; Admin Dose 2.5 MLS/HR; Start 01/14/17 at 13:00 Nystatin (Nystatin Powder) 1 applic BID TOP Last administered on 01/18/17 20: 33; Admin Dose 1 APPLIC; Start 01/14/17 at 15:00 Fluconazole (Diflucan) 100 mg DAILY PO Last administered on 01/18/17 08:53; Admin Dose 100 MG; Start 01/16/17 at 09:00 Furosemide (Lasix) 40 mg DAILY IV Last administered on 01/18/17 08:53; Admin Dose 40 MG; Start 01/18/17 at 09:00 SE RAY MD Jan 19, 2017 00:12
[2017-01-19] MEDS: INSULIN ASPART [NOVOLOG] 3 ML PEN SC SCH ×6 (01:00→21:00)
[2017-01-19] MEDS: PROPOFOL 100 ML IV SCH ×2 (01:30→13:20)
[2017-01-19] MEDS: ACCU-CHEK XX SCH (01:59)
[2017-01-19 05:36] LABS: ABNORMAL IP MESSAGE 1; HEMATOCRIT 25.7 % (37.0-47.0); HEMOGLOBIN 7.6 g/dl (12.0-16.0); MEAN CORPUSCULAR HEMOGLOBIN 28.4 pg (29.0-33.0); MEAN CORPUSCULAR HGB CONC 29.6 g/dl (32.0-37.0); MEAN CORPUSCULAR VOLUME 95.9 fl (82.0-101.0); MEAN PLATELET VOLUME 10.7 fl (7.4-10.4); PLATELET COUNT 175 10^3/UL (140-415); RED BLOOD COUNT 2.68 10^6/ul (4.20-5.40); RED CELL DISTRIBUTION WIDTH 15.7 % (11.5-14.5); WHITE BLOOD COUNT 6.2 10^3/ul (4.8-10.8)
[2017-01-19 05:42] LABS: POSITIVE DIFF @See below
[2017-01-19 05:59] LABS: CALCIUM 9.4 mg/dl (8.4-10.2); CREATININE 1.03 mg/dl (0.44-1.00); MAGNESIUM 2.1 mg/dl (1.7-2.5); PHOSPHORUS 3.1 mg/dl (2.5-4.9); POTASSIUM 3.3 mmol/L (3.5-5.1)
[2017-01-19 07:42] LABS: AADO2 Arterial 56.2 mmHg (7.0-24.0); Allen Test ACCEPTAB; Arterial Base Excess 5.7 mmol/L (-3.0-3); Arterial COHb 0.3 % (0.0-3.0); Arterial Fraction of Oxyhgb 97.4 % (93.0-99.0); Arterial HCO3 29.5 mmol/L (22.0-26.0); Arterial MetHb 0.1 % (0.0-1.5); Arterial Total Hemglobin 8.3 g/dl (12.0-18.0); MODE VENT - AC
[2017-01-19 07:47] LABS: ANISOCYTOSIS 2+ (0-0); EOSINOPHILS % (M) 1 % (0-7); HYPOCHROMASIA 1+ (0-0); MICROCYTOSIS 2+ (0-0); MONOCYTES % (M) 7 % (0-11); PLATELET ESTIMATE NORMAL; POIKILOCYTOSIS 1+ (0-0)
[2017-01-19] MEDS: morphine 2 MG INJ IV PRN (08:07)
--- NOTE | 2017-01-19 08:15 | CONS ---
Date/Time of Note Date/Time of Note DATE: 01/19/17 TIME: 08:11 Consult Date/Type/Reason Admit Date/Time Jan 10, 2017 at 23:15 Initial Consult Date 01/11/17 Type of Consultation: cardiology Ordering Provider: AUBREE PALMA DO Subjective CARDIOLOGY/ critical care follow up note: S: D/W staff and rhythm was reviewed. pt remains in afib. HR has been under good control she is off of neosynerphrine drip now but unable to get coreg mostly. she is still on vent in ICU. pt is nonverbal. her old records were extensively reviewed pt's EF was normal at 50-55% on 01/01/17 CVP checked today about 12 now O: gen: intubated on vent but appears in resp distress. HEENT: Pupils are equal NECK: no stridor. CV: irregularly irregular. systolic murmur Chest: s/p pelurodex right side GI: soft NT ND. no rebound. no guarding ext: + trace LE edema neuro:Awake and alert. responds appropriately Derm: multiple echymosis psych; calm now ECG reviewed: afib RVR. ant infarct. CXR reviewed ECHO 01/11/17reviewed personally: 1. Normal left ventricular cavity size. Normal left ventricular wall thickness. Severe left ventricular systolic dysfunction. Ejection fraction is visually estimated at 25 %. Multiple segmental wall motion abnormalities. 2. There is mild enlargement of left atrium. 3. Mild mitral leaflet calcification. Mild mitral annular calcification. Mild mitral valve regurgitation. 4. Aortic sclerosis without stenosis. Trace aortic valve regurgitation. 5. Normal appearance of the tricuspid valve. Estimated peak PA systolic pressure 53 mmHg. There is mild tricuspid regurgitation. 6. Inferior vena cava without respiratory collapse, however, patient on ventilator. ECHO 01/01/17: per review of old charts. EF 50-55%. LAE. MOD/ SEVERE MR. Objective Vital Signs Date Time Temp Pulse Resp B/P Pulse Ox O2 Delivery O2 Flow Rate FiO2 01/19/17 08:03 84 28 100 30 01/19/17 06:00 96/51 Mechanical Ventilator 01/19/17 04:00 97.9 Intake and Output 01/18/17 01/18/17 01/19/17 15:00 23:00 07:00 Intake Total 493.9 ml 261.0 ml 171.0 ml Output Total 1750 ml 475 ml 225 ml Balance -1256.1 ml -214.0 ml -54.0 ml Results/Medications Result Diagram: 01/19/17 0400 01/19/17 0400 Results 24 hrs Laboratory Tests Test 01/18/17 09:10 01/18/17 13:00 01/18/17 18:17 01/18/17 20:34 Bedside Glucose 141 133 160 149 Test 01/19/17 00:49 01/19/17 04:00 01/19/17 04:10 01/19/17 07:00 Bedside Glucose 99 93 White Blood Count 6.2 Red Blood Count 2.68 L Hemoglobin 7.6 L Hematocrit 25.7 L Mean Corpuscular Volume 95.9 Mean Corpuscular Hemoglobin 28.4 L Mean Corpuscular Hemoglobin Concent 29.6 L Red Cell Distribution Width 15.7 H Platelet Count 175 Mean Platelet Volume 10.7 H Neutrophils % Segmented Neutrophils % (Manual) 35 L Band Neutrophils % (Manual) 6 H Lymphocytes % Lymphocytes % (Manual) 51 Monocytes % Monocytes % (Manual) 7 Eosinophils % Eosinophils % (Manual) 1 Basophils % Nucleated Red Blood Cells % 0.0 Neutrophils # Neutrophils # (Manual) 2.2 Band Neutrophils # 0.3 Absolute Lymphocytes (Manual) 3.1 H Lymphocytes # Monocytes # Absolute Monocytes (Manual) 0.4 Eosinophils # Basophils # Nucleated Red Blood Cells # Platelet Estimate NORMAL Hypochromasia 1+ Poikilocytosis 1+ Anisocytosis 2+ Microcytosis 2+ Sodium Level 145 H Potassium Level 3.3 L Chloride Level 106 Carbon Dioxide Level 31 Anion Gap 11 Blood Urea Nitrogen 27 H Creatinine 1.03 H Glucose Level 116 Calcium Level 9.4 Phosphorus Level 3.1 Magnesium Level 2.1 Blood Gas Specimen Source Blood arterial Arterial Blood Date Drawn 01/19/2017 7:20:50 AM Arterial Blood pH (Temp corrected) 7.490 H Arterial Blood pCO2 (Temp correct) 39.6 Arterial Blood pO2 (Temp corrected) 111.2 H Arterial Blood HCO3 29.5 H Arterial Blood Base Excess 5.7 H Arterial Blood Oxygen Saturation 97.8 Blayne Test ACCEPTAB Arterial Blood Gas Puncture Site Left Radial Arterial Blood Carboxyhemoglobin 0.3 Arterial Blood Methemoglobin 0.1 Blood Gas A-a O2 Differential 56.2 H Oxyhemoglobin Percent 97.4 Total Hemoglobin 8.3 L Blood Gas Temperature 37.0 Blood Gas Respiration Rate 16.0 Blood Gas Actual Respiration Rate 16 Blood Gas Modality VENT - AC FiO2 30.0 Blood Gas Tidal Volume 400.0 Blood Gas Low PEEP Setting 5.0 Blood Gas Notified Whom JLD Blood Gas Notified Time 01/19/2017 7:42:37 AM Medications Current Medications Propofol 100 ml @ 2.045 mls/ hr Q12H IV Last administered on 01/12/17 08:16; Admin Dose 10.227 MLS/HR; Start 01/11/17 at 01:30 Vancomycin HCl (Vancocin) 250 ml @ 125 mls/hr Q24H IVPB Last administered on 08:50; Admin Dose 125 MLS/HR; Start 01/11/17 at 09:00 Enoxaparin Sodium 70 mg 70 mg Q12 SC Last administered on 01/18/17 20:38; Admin Dose 70 MG; Start 01/11/17 at 12:30 Meropenem/Sodium Chloride 50 ml @ 100 mls/hr Q12 IVPB Last administered on 20:30; Admin Dose 100 MLS/HR; Start 01/11/17 at 14:30 Phenylephrine HCl/ Dextrose (Baudilio-Syneph/D5W) 250 ml @ 10 mls/hr TITRATE IV Last administered on 01/17/17 00:00; Admin Dose 7.5 MLS/HR; Start 01/12/17 at 06:00 Mupirocin (Bactroban) 1 applic BID TOP Last administered on 01/18/17 20:32; Admin Dose 1 APPLIC; Start 01/12/17 at 13:00 Morphine Sulfate (morphine) 1 mg Q4H PRN IV PAIN Last administered on 08:07; Admin Dose 1 MG; Start 01/12/17 at 19:00 Diagnostic Test (Pha) (Accu-Chek) 1 ea 02 XX Last administered on 01/15/17 00: 50; Admin Dose 1 EA; Start 01/14/17 at 02:00 Insulin Aspart (Novolog Insulin Pen) NOVOLOG *MILD* ALGORI... Q4 SC Last administered on 01/18/17 20:37; Admin Dose 1 UNIT; Start 01/13/17 at 09:00 Miscellaneous Information 1 ea NOTE XX ; Start 01/13/17 at 07:00 Glucose (Glutose) 15 gm Q15M PRN PO DECREASED GLUCOSE; Start 01/13/17 at 07:00 Glucose (Glutose) 22.5 gm Q15M PRN PO DECREASED GLUCOSE; Start 01/13/17 at 07: 00 Dextrose (D50w Syringe) 25 ml Q15M PRN IV DECREASED GLUCOSE; Start 01/13/17 at 07:00 Dextrose (D50w Syringe) 50 ml Q15M PRN IV DECREASED GLUCOSE; Start 01/13/17 at 07:00 Glucagon (Glucagen) 1 mg Q15M PRN IM DECREASED GLUCOSE; Start 01/13/17 at 07:00 Glucose (Glutose) 15 gm Q15M PRN BUCCAL DECREASED GLUCOSE; Start 01/13/17 at 07 :00 Carvedilol 3.125 mg 3.125 mg BID NGT Last administered on 01/14/17 09:29; Admin Dose 3.125 MG; Start 01/13/17 at 09:00 Midazolam HCl 50 ml @ 1 mls/hr TITRATE IV Last administered on 01/18/17 16:58 ; Admin Dose 1 MLS/HR; Start 01/14/17 at 12:00 Fentanyl (Sublimaze) 100 ml @ 2.5 mls/hr TITRATE IV Last administered on 16:58; Admin Dose 2.5 MLS/HR; Start 01/14/17 at 13:00 Nystatin (Nystatin Powder) 1 applic BID TOP Last administered on 01/18/17 20: 33; Admin Dose 1 APPLIC; Start 01/14/17 at 15:00 Fluconazole (Diflucan) 100 mg DAILY PO Last administered on 01/18/17 08:53; Admin Dose 100 MG; Start 01/16/17 at 09:00 Furosemide (Lasix) 40 mg DAILY IV Last administered on 01/18/17 08:53; Admin Dose 40 MG; Start 01/18/17 at 09:00 Potassium Chloride (Potassium Chloride Pwd/Soln) 40 meq ONCE ONCE NGT ; Start 01/19/17 at 08:30; Stop 01/19/17 at 08:31; Status UNV Assessment/Plan Chief Complaint/Hosp Course 1. shock: cardiogenic and septic combination : BP has improved now 2. CHF: acute on chronic probably due to systolic and diastolic heart failure 3. acute hypoxemic/ hypercapnic resp failure: s/ p re-intubation now 4. Afib with RVR: HR is under much better control now 5. HX CAD 6/ HX PCI RCA 2009 7. HX HTN: now hypotensive 8. Electrolytes abnormalities. 9. hx CLL 10. ANEMIA 11. Lactic acidosis 12. dyslipidemia 13./ hx DVT ( treated with XARELTO at home). on lovenox here. 14. severe cardiomyopathy now with EF 20% (. EF was 50-55% on 01/01/17 per review of old records) REC: cont ICU care and vent support for now. PULM CONSULT input is greatly appreciated. weaning if able to tolerate it. will give dig prn. currently HR is under good control. off off NEOSYNERPHRINE DRIP now. ECHO shows severe LV dysfunction now. will consider ischemic work up once more stable and extubated. coreg as tolerated. CONT ICU CARE. lasix. will give Kcl prn as well. transfusion per hem/onc rec. will check stool OB thank you. CHINO MERCEDES MD [facility] Problems: CHINO MERCEDES MD Jan 19, 2017 08:15
--- NOTE | 2017-01-19 08:19 | RADRPT ---
PROCEDURE: XR Chest. CLINICAL INDICATION: Shortness of breath. TECHNIQUE: Single frontal view. COMPARISON: 01/18/2017. FINDINGS: The endotracheal tube and orogastric tube are in satisfactory position. There is a left internal jug ular vein catheter with the tip in the lower superior vena cava. A right chest tube is in satisfacto ry position. Air space disease at the lung bases and small bilateral pleural effusions are unchanged . The heart is enlarged. There is calcification in the aorta consistent with atherosclerosis. There is no pneumothorax. There is right shoulder calcific tendonitis. IMPRESSION: 1. No change from 01/18/2017. RPTAT: QQ .Noe Aragon MD, MD Date Time Electronically viewed and signed by .Noe Aragon MD, on 01/19/2017 08:19 .R/
[2017-01-19] MEDS ORDERED: POTASSIUM CHLORIDE 20 MEQ POWDER FOR ORAL SOLN NGT ONE (08:30)
[2017-01-19] MEDS: VANCOMYCIN 1 GM in NS 250 ML IVPB SCH (08:46)
[2017-01-19] MEDS: FUROSEMIDE 40 MG INJ IV SCH (08:49)
[2017-01-19] MEDS: MUPIROCIN 2% 22 GM OINT TOP SCH ×2 (08:50→21:33)
[2017-01-19] MEDS: FLUCONAZOLE 100 MG TAB PO SCH (08:50)
[2017-01-19] MEDS: BALSAM PERU/CASTOR OIL 60 GM TUBE TOP SCH ×2 (08:50→21:34)
[2017-01-19] MEDS: NYSTATIN 30 GM POWDER BTL TOP SCH ×2 (08:51→21:34)
--- NOTE | 2017-01-19 08:54 | PN ---
DATE: 01/19/2017 SUBJECTIVE DATA: The patient is stable. No events overnight. No hemoptysis, hematemesis, hematochezia. OBJECTIVE DATA: VITAL SIGNS: Blood pressure 96/51, respirations 17, pulse 79, temperature 97.9. I's and O's: 900 in, 2 L out. HEENT: Head is normocephalic. NECK: Supple. HEART: Regular rate. LUNGS: Show diminished breath sounds at the base. ABDOMEN: Soft, nontender to palpation. No rebound or guarding. EXTREMITIES: Negative for clubbing, cyanosis. Trace edema. DERMATOLOGIC: Clean. No rashes. MUSCULOSKELETAL: No joint effusion. NEUROLOGIC: No change in exam. MEDICATIONS: Reviewed. LABORATORY AND DIAGNOSTIC DATA: Shows white count 6.2, hemoglobin 7.6, crit 25.7, platelet count is 175. Sodium 145, potassium 3.3, BUN 27, creatinine 1.03. ASSESSMENT AND PLAN: 1. Ventilatory-dependent respiratory failure. Vent settings and ABGs reviewed. Continue weaning per Pulmonary. 2. Sepsis, status post shock. Currently off pressor support. Continue antibiotic therapy. 3. Acute decompensated heart failure. Continue diuretic regimen. 4. Nonoliguric acute kidney injury. Etiology secondary to septic acute kidney injury. Renal function is improving. Continue to monitor. 5. Hypokalemia. Replete potassium chloride. 6. Anemia. Monitor H and H levels. Defer to Hematology. 7. Mineral bone disorder. Continue to monitor calcium and phosphorus levels. 8. Diabetes. Continue Accu-Cheks and insulin sliding scale. 9. Chronic lymphocytic leukemia. 10. Coronary artery disease. Continue current medical management. 11. Pulmonary hypertension. 12. Pleural effusion with history of PleurX catheter. 13. Lower extremity deep vein thrombosis. Continue Lovenox. 14. Acute encephalopathy. Continue to monitor. 15. Gastrointestinal and deep venous thrombosis prophylaxis. Please note, I spent over 30 minutes of critical care time with this patient. Dictated By: Timo Mccracken DO /linette/annetta /Document#: [id number]
[2017-01-19] MEDS: ENOXAPARIN 80 MG/0.8 ML SYG SC SCH ×2 (09:03→21:32)
[2017-01-19] MEDS: MIDAZOLAM (DRIP) 50 mg/50 mL 50 ML IV SCH ×2 (10:02→21:36)
[2017-01-19] MEDS: FENTAnyl (DRIP) 1000 mcg/100mL 100 ML IV SCH ×2 (10:02→10:05)
--- NOTE | 2017-01-19 10:32 | CONS ---
Date/Time of Note Date/Time of Note DATE: 01/19/17 TIME: 10:28 Assessment/Plan Assessment/Plan Chief Complaint/Hosp Course Consult dictated #[id number] Problems: Additional Assessment/Plan Ventilator setting; AC of 16, tidal volume 400, PEEP of 5, 30% FiO2. Patient is currently on Versed 1 mg/h, fentanyl 25 mics per hour. Chest x-ray was reviewed from today which is showing significant improvement in pleural effusions as well as basilar pneumonia. Endotracheal tube is at an adequate level. Assessment and recommendations; 1. Patient admitted with CHF exacerbation bilateral pneumonia with significant radiological improvement. 2. History of chronic lymphocytic leukemia. 3. History of recurrent pleural effusions, status post Pleurx catheter on the right side. 4. Extreme agitation off sedation. 5. Mild anemia and thrombocytopenia. Patient has been re- sedated. She likely will need to have a tracheostomy performed. The patient's son still has not decided about that. Consultation Date/Type/Reason Admit Date/Time Jan 10, 2017 at 23:15 Initial Consult Date 01/11/17 Type of Consultation: Pulmonary/critical care Referring Provider: AUBREE PALMA DO 24 HR Interval Summary Free Text/Dictation Patient's condition remains critical. She was taken off sedation short while ago and is now appearing extremely agitated. General exam; elderly woman, orally intubated, agitated, patient is awake. Exam/Review of Systems Vital Signs Vitals Vital Signs Date Time Temp Pulse Resp B/P Pulse Ox O2 Delivery O2 Flow Rate FiO2 01/19/17 08:03 84 28 100 30 01/19/17 06:00 96/51 Mechanical Ventilator 01/19/17 04:00 97.9 Intake and Output 01/18/17 01/18/17 01/19/17 15:00 23:00 07:00 Intake Total 493.9 ml 261.0 ml 171.0 ml Output Total 1750 ml 475 ml 225 ml Balance -1256.1 ml -214.0 ml -54.0 ml Exam HEENT exam; supple neck, positive JVD. No lymphadenopathy. Midline trachea. No thyromegaly. Orally intubated. Chest exam; diminished but clear breath sounds. S1-S2 audible, no murmurs. Regular rhythm. Pleurx catheter in right lateral chest wall. Abdomen exam; soft, no organomegaly. Bowel sounds audible. Extremity exam; trace edema. Patient has a multiple ecchymosis involving all 4 extremities. 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 Results Result Diagram: 01/19/17 0400 01/19/17 0400 Results 24 hrs Laboratory Tests Test 01/18/17 13:00 01/18/17 18:17 01/18/17 20:34 01/19/17 00:49 Bedside Glucose 133 160 149 99 Test 01/19/17 04:00 01/19/17 04:10 01/19/17 07:00 01/19/17 08:41 White Blood Count 6.2 Red Blood Count 2.68 L Hemoglobin 7.6 L Hematocrit 25.7 L Mean Corpuscular Volume 95.9 Mean Corpuscular Hemoglobin 28.4 L Mean Corpuscular Hemoglobin Concent 29.6 L Red Cell Distribution Width 15.7 H Platelet Count 175 Mean Platelet Volume 10.7 H Neutrophils % Segmented Neutrophils % (Manual) 35 L Band Neutrophils % (Manual) 6 H Lymphocytes % Lymphocytes % (Manual) 51 Monocytes % Monocytes % (Manual) 7 Eosinophils % Eosinophils % (Manual) 1 Basophils % Nucleated Red Blood Cells % 0.0 Neutrophils # Neutrophils # (Manual) 2.2 Band Neutrophils # 0.3 Absolute Lymphocytes (Manual) 3.1 H Lymphocytes # Monocytes # Absolute Monocytes (Manual) 0.4 Eosinophils # Basophils # Nucleated Red Blood Cells # Platelet Estimate NORMAL Hypochromasia 1+ Poikilocytosis 1+ Anisocytosis 2+ Microcytosis 2+ Sodium Level 145 H Potassium Level 3.3 L Chloride Level 106 Carbon Dioxide Level 31 Anion Gap 11 Blood Urea Nitrogen 27 H Creatinine 1.03 H Glucose Level 116 Calcium Level 9.4 Phosphorus Level 3.1 Magnesium Level 2.1 Bedside Glucose 93 142 Blood Gas Specimen Source Blood arterial Arterial Blood Date Drawn 01/19/2017 7:20:50 AM Arterial Blood pH (Temp corrected) 7.490 H Arterial Blood pCO2 (Temp correct) 39.6 Arterial Blood pO2 (Temp corrected) 111.2 H Arterial Blood HCO3 29.5 H Arterial Blood Base Excess 5.7 H Arterial Blood Oxygen Saturation 97.8 Blayne Test ACCEPTAB Arterial Blood Gas Puncture Site Left Radial Arterial Blood Carboxyhemoglobin 0.3 Arterial Blood Methemoglobin 0.1 Blood Gas A-a O2 Differential 56.2 H Oxyhemoglobin Percent 97.4 Total Hemoglobin 8.3 L Blood Gas Temperature 37.0 Blood Gas Respiration Rate 16.0 Blood Gas Actual Respiration Rate 16 Blood Gas Modality VENT - AC FiO2 30.0 Blood Gas Tidal Volume 400.0 Blood Gas Low PEEP Setting 5.0 Blood Gas Notified Whom JLD Blood Gas Notified Time 01/19/2017 7:42:37 AM Medications Medications Current Medications Propofol 100 ml @ 2.045 mls/ hr Q12H IV Last administered on 01/12/17 08:16; Admin Dose 10.227 MLS/HR; Start 01/11/17 at 01:30 Vancomycin HCl (Vancocin) 250 ml @ 125 mls/hr Q24H IVPB Last administered on 08:46; Admin Dose 125 MLS/HR; Start 01/11/17 at 09:00 Enoxaparin Sodium 70 mg 70 mg Q12 SC Last administered on 01/19/17 09:03; Admin Dose 70 MG; Start 01/11/17 at 12:30 Meropenem/Sodium Chloride 50 ml @ 100 mls/hr Q12 IVPB Last administered on 20:30; Admin Dose 100 MLS/HR; Start 01/11/17 at 14:30 Phenylephrine HCl/ Dextrose (Baudilio-Syneph/D5W) 250 ml @ 10 mls/hr TITRATE IV Last administered on 01/17/17 00:00; Admin Dose 7.5 MLS/HR; Start 01/12/17 at 06:00 Mupirocin (Bactroban) 1 applic BID TOP Last administered on 01/19/17 08:50; Admin Dose 1 APPLIC; Start 01/12/17 at 13:00 Morphine Sulfate (morphine) 1 mg Q4H PRN IV PAIN Last administered on 08:07; Admin Dose 1 MG; Start 01/12/17 at 19:00 Diagnostic Test (Pha) (Accu-Chek) 1 ea 02 XX Last administered on 01/15/17 00: 50; Admin Dose 1 EA; Start 01/14/17 at 02:00 Insulin Aspart (Novolog Insulin Pen) NOVOLOG *MILD* ALGORI... Q4 SC Last administered on 01/19/17 09:06; Admin Dose 1 UNIT; Start 01/13/17 at 09:00 Miscellaneous Information 1 ea NOTE XX ; Start 01/13/17 at 07:00 Glucose (Glutose) 15 gm Q15M PRN PO DECREASED GLUCOSE; Start 01/13/17 at 07:00 Glucose (Glutose) 22.5 gm Q15M PRN PO DECREASED GLUCOSE; Start 01/13/17 at 07: 00 Dextrose (D50w Syringe) 25 ml Q15M PRN IV DECREASED GLUCOSE; Start 01/13/17 at 07:00 Dextrose (D50w Syringe) 50 ml Q15M PRN IV DECREASED GLUCOSE; Start 01/13/17 at 07:00 Glucagon (Glucagen) 1 mg Q15M PRN IM DECREASED GLUCOSE; Start 01/13/17 at 07:00 Glucose (Glutose) 15 gm Q15M PRN BUCCAL DECREASED GLUCOSE; Start 01/13/17 at 07 :00 Carvedilol 3.125 mg 3.125 mg BID NGT Last administered on 01/14/17 09:29; Admin Dose 3.125 MG; Start 01/13/17 at 09:00 Midazolam HCl 50 ml @ 1 mls/hr TITRATE IV Last administered on 01/19/17 10:02 ; Admin Dose 1 MLS/HR; Start 01/14/17 at 12:00 Fentanyl (Sublimaze) 100 ml @ 2.5 mls/hr TITRATE IV Last administered on 10:05; Admin Dose 2.5 MLS/HR; Start 01/14/17 at 13:00 Nystatin (Nystatin Powder) 1 applic BID TOP Last administered on 01/19/17 08: 51; Admin Dose 1 APPLIC; Start 01/14/17 at 15:00 Fluconazole (Diflucan) 100 mg DAILY PO Last administered on 01/19/17 08:50; Admin Dose 100 MG; Start 01/16/17 at 09:00 Furosemide (Lasix) 40 mg DAILY IV Last administered on 01/19/17 08:49; Admin Dose 40 MG; Start 01/18/17 at 09:00 RADHA CAMACHO Jan 19, 2017 10:32
[2017-01-19] MEDS: MEROPENEM 500MG/50 ML (PMX) 50 ML IVPB SCH ×2 (11:02→21:29)
--- NOTE | 2017-01-19 12:41 | PN ---
DATE: 01/19/2017 SUBJECTIVE DATA: No events overnight. The patient is lying comfortably in bed. She is awake, comfortable, on vent. No fevers. OBJECTIVE DATA: VITAL SIGNS: Temperature 98.5, pulse 83, respirations 15, blood pressure 95/55, saturation 99 on 30 FiO2. LABORATORY DATA: WBC 6.2, H and H 7.6 and 25.7, platelets 175. BUN 27, creatinine 1.03. DIAGNOSTICS: Chest x-ray this morning revealed no change. INDWELLINGS: Endotracheal tube, NG tube, left IJ triple-lumen catheter, Sifuentes, right chest PleurX. ANTIMICROBIALS: The patient is on: 1. Fluconazole. 2. Meropenem. 3. Vancomycin. Day #9. PHYSICAL EXAMINATION: GENERAL: This is a well-developed, elderly woman, who is lying comfortably in bed. HEENT: Head atraumatic, normocephalic. Sclerae anicteric. Buccal mucosa dry. NECK: Supple. CHEST: Rise symmetrical. Breath sounds diminished at the bases. HEART: S1, S2. ABDOMEN: Soft, bowel sounds present. EXTREMITIES: With trace edema. Peripheral pulses palpable. ASSESSMENT: 1. Status post septic shock. 2. Acute respiratory failure, patient was re-intubated. 3. Healthcare-associated pneumonia, possibly aspiration type. 4. Congestive heart failure exacerbation. 5. Chronic lymphocytic leukemia. 6. Recurrent pleural effusions, status post right PleurX catheter placement. 7. Diabetes. 8. History of deep venous thrombosis and atrial fibrillation. 9. Dominga albicans urinary tract infection. 10. Methicillin-resistant Staphylococcus aureus nares colonization. PLAN: The patient remains hemodynamically stable. We will continue her on current antibiotics. Follow recommendations of consultants. Dictated By: Elvin Owusu NP /linette/annetta /Document#: [id number]
--- NOTE | 2017-01-19 18:26 | CONS ---
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 Septic shock. Acute decompensated heart failure. Nonoliguric acute kidney injury with unknown baseline creatinine. Etiology secondary to septic acute kidney injury, acute tubular necrosis. Mineral bone disorder. Diabetes. Continue Accu-Cheks and sliding scale. Coronary artery disease. Pulmonary hypertension. Pleural effusions with history of PleurX catheter, currently nonfunctional. Problems: Consultation Date/Type/Reason Admit Date/Time Jan 10, 2017 at 23:15 Initial Consult Date 01/11/17 Type of Consultation: [facility] Referring Provider: AUBREE PALMA DO 24 HR Interval Summary Free Text/Dictation ALL NOTED Exam/Review of Systems Vital Signs Vitals Vital Signs Date Time Temp Pulse Resp B/P Pulse Ox O2 Delivery O2 Flow Rate FiO2 01/19/17 17:41 79 19 100 30 01/19/17 16:00 97.7 109/63 Mechanical Ventilator Intake and Output 01/18/17 01/18/17 01/19/17 15:00 23:00 07:00 Intake Total 493.9 ml 261.0 ml 171.0 ml Output Total 1750 ml 475 ml 255 ml Balance -1256.1 ml -214.0 ml -84.0 ml Exam HEENT: Head is normocephalic. NECK: Supple. HEART: Regular rate. LUNGS: Diminished breath sounds at the base. ABDOMEN: Soft, nontender to palpation. No rebound or guarding. EXTREMITIES: Negative for clubbing, cyanosis. No edema. DERMATOLOGIC: No rashes. MUSCULOSKELETAL: No joint effusion. NEUROLOGIC: No change in exam. Results Result Diagram: 01/19/17 0400 01/19/17 0400 Results 24 hrs Laboratory Tests Test 01/18/17 20:34 01/19/17 00:49 01/19/17 04:00 01/19/17 04:10 Bedside Glucose 149 99 93 White Blood Count 6.2 Red Blood Count 2.68 L Hemoglobin 7.6 L Hematocrit 25.7 L Mean Corpuscular Volume 95.9 Mean Corpuscular Hemoglobin 28.4 L Mean Corpuscular Hemoglobin Concent 29.6 L Red Cell Distribution Width 15.7 H Platelet Count 175 Mean Platelet Volume 10.7 H Neutrophils % Segmented Neutrophils % (Manual) 35 L Band Neutrophils % (Manual) 6 H Lymphocytes % Lymphocytes % (Manual) 51 Monocytes % Monocytes % (Manual) 7 Eosinophils % Eosinophils % (Manual) 1 Basophils % Nucleated Red Blood Cells % 0.0 Neutrophils # Neutrophils # (Manual) 2.2 Band Neutrophils # 0.3 Absolute Lymphocytes (Manual) 3.1 H Lymphocytes # Monocytes # Absolute Monocytes (Manual) 0.4 Eosinophils # Basophils # Nucleated Red Blood Cells # Platelet Estimate NORMAL Hypochromasia 1+ Poikilocytosis 1+ Anisocytosis 2+ Microcytosis 2+ Sodium Level 145 H Potassium Level 3.3 L Chloride Level 106 Carbon Dioxide Level 31 Anion Gap 11 Blood Urea Nitrogen 27 H Creatinine 1.03 H Glucose Level 116 Calcium Level 9.4 Phosphorus Level 3.1 Magnesium Level 2.1 Test 01/19/17 07:00 01/19/17 08:41 01/19/17 12:49 01/19/17 17:46 Blood Gas Specimen Source Blood arterial Arterial Blood Date Drawn 01/19/2017 7:20:50 AM Arterial Blood pH (Temp corrected) 7.490 H Arterial Blood pCO2 (Temp correct) 39.6 Arterial Blood pO2 (Temp corrected) 111.2 H Arterial Blood HCO3 29.5 H Arterial Blood Base Excess 5.7 H Arterial Blood Oxygen Saturation 97.8 Blayne Test ACCEPTAB Arterial Blood Gas Puncture Site Left Radial Arterial Blood Carboxyhemoglobin 0.3 Arterial Blood Methemoglobin 0.1 Blood Gas A-a O2 Differential 56.2 H Oxyhemoglobin Percent 97.4 Total Hemoglobin 8.3 L Blood Gas Temperature 37.0 Blood Gas Respiration Rate 16.0 Blood Gas Actual Respiration Rate 16 Blood Gas Modality VENT - AC FiO2 30.0 Blood Gas Tidal Volume 400.0 Blood Gas Low PEEP Setting 5.0 Blood Gas Notified Whom JLD Blood Gas Notified Time 01/19/2017 7:42:37 AM Bedside Glucose 142 161 147 Medications Medications Current Medications Propofol 100 ml @ 2.045 mls/ hr Q12H IV Last administered on 01/12/17t 08:16; Admin Dose 10.227 MLS/HR; Start 01/11/17 at 01:30 Vancomycin HCl (Vancocin) 250 ml @ 125 mls/hr Q24H IVPB Last administered on 08:46; Admin Dose 125 MLS/HR; Start 01/11/17 at 09:00 Enoxaparin Sodium 70 mg 70 mg Q12 SC Last administered on 01/19/17 09:03; Admin Dose 70 MG; Start 01/11/17 at 12:30 Meropenem/Sodium Chloride 50 ml @ 100 mls/hr Q12 IVPB Last administered on 11:02; Admin Dose 100 MLS/HR; Start 01/11/17 at 14:30 Phenylephrine HCl/ Dextrose (Baudilio-Syneph/D5W) 250 ml @ 10 mls/hr TITRATE IV Last administered on 01/17/17 00:00; Admin Dose 7.5 MLS/HR; Start 01/12/17 at 06:00 Mupirocin (Bactroban) 1 applic BID TOP Last administered on 01/19/17 08:50; Admin Dose 1 APPLIC; Start 01/12/17 at 13:00 Morphine Sulfate (morphine) 1 mg Q4H PRN IV PAIN Last administered on 08:07; Admin Dose 1 MG; Start 01/12/17 at 19:00 Diagnostic Test (Pha) (Accu-Chek) 1 ea 02 XX Last administered on 01/15/17 00: 50; Admin Dose 1 EA; Start 01/14/17 at 02:00 Insulin Aspart (Novolog Insulin Pen) NOVOLOG *MILD* ALGORI... Q4 SC Last administered on 01/19/17 17:50; Admin Dose 1 UNIT; Start 01/13/17 at 09:00 Miscellaneous Information 1 ea NOTE XX ; Start 01/13/17 at 07:00 Glucose (Glutose) 15 gm Q15M PRN PO DECREASED GLUCOSE; Start 01/13/17 at 07:00 Glucose (Glutose) 22.5 gm Q15M PRN PO DECREASED GLUCOSE; Start 01/13/17 at 07: 00 Dextrose (D50w Syringe) 25 ml Q15M PRN IV DECREASED GLUCOSE; Start 01/13/17 at 07:00 Dextrose (D50w Syringe) 50 ml Q15M PRN IV DECREASED GLUCOSE; Start 01/13/17 at 07:00 Glucagon (Glucagen) 1 mg Q15M PRN IM DECREASED GLUCOSE; Start 01/13/17 at 07:00 Glucose (Glutose) 15 gm Q15M PRN BUCCAL DECREASED GLUCOSE; Start 01/13/17 at 07 :00 Carvedilol 3.125 mg 3.125 mg BID NGT Last administered on 01/14/17 09:29; Admin Dose 3.125 MG; Start 01/13/17 at 09:00 Midazolam HCl 50 ml @ 1 mls/hr TITRATE IV Last administered on 01/19/17 10:02 ; Admin Dose 1 MLS/HR; Start 01/14/17 at 12:00 Fentanyl (Sublimaze) 100 ml @ 2.5 mls/hr TITRATE IV Last administered on 10:05; Admin Dose 2.5 MLS/HR; Start 01/14/17 at 13:00 Nystatin (Nystatin Powder) 1 applic BID TOP Last administered on 01/19/17 08: 51; Admin Dose 1 APPLIC; Start 01/14/17 at 15:00 Fluconazole (Diflucan) 100 mg DAILY PO Last administered on 01/19/17 08:50; Admin Dose 100 MG; Start 01/16/17 at 09:00 Furosemide (Lasix) 40 mg DAILY IV Last administered on 01/19/17 08:49; Admin Dose 40 MG; Start 01/18/17 at 09:00 SE RAY MD Jan 19, 2017 18:26
[2017-01-20] VITALS (44 sets, daily range): BP systolic 88–123; BP diastolic 41–80; PULSE 71–96; RESP 7–25
[2017-01-20] MEDS: INSULIN ASPART [NOVOLOG] 3 ML PEN SC SCH ×6 (01:00→21:00)
[2017-01-20] MEDS: ACCU-CHEK XX SCH (01:03)
[2017-01-20] MEDS: PROPOFOL 100 ML IV SCH ×2 (01:03→13:30)
[2017-01-20 05:28] LABS: ABNORMAL IP MESSAGE 1; HEMOGLOBIN 9.6 g/dl (12.0-16.0); MEAN CORPUSCULAR HEMOGLOBIN 30.2 pg (29.0-33.0); MEAN CORPUSCULAR VOLUME 94.3 fl (82.0-101.0); MEAN PLATELET VOLUME 10.5 fl (7.4-10.4); PLATELET COUNT 189 10^3/UL (140-415); RED BLOOD COUNT 3.18 10^6/ul (4.20-5.40); RED CELL DISTRIBUTION WIDTH 16.1 % (11.5-14.5); WHITE BLOOD COUNT 6.4 10^3/ul (4.8-10.8)
[2017-01-20 05:56] LABS: ALBUMIN 3.6 g/dl (3.3-4.9); ALBUMIN/GLOBULIN RATIO 1.56; BILIRUBIN,INDIRECT 0.3 mg/dl (0-1.1); BILIRUBIN,TOTAL 0.3 mg/dl (0.2-1.3); CALCIUM 9.3 mg/dl (8.4-10.2); CREATININE 1.05 mg/dl (0.44-1.00); POTASSIUM 3.5 mmol/L (3.5-5.1); TOTAL PROTEIN 5.9 g/dl (6.1-8.1)
[2017-01-20 06:05] LABS: MAGNESIUM 2.1 mg/dl (1.7-2.5); PHOSPHORUS 3.5 mg/dl (2.5-4.9); POSITIVE DIFF @See below
--- NOTE | 2017-01-20 07:36 | PN ---
DATE: 01/20/2017 SUBJECTIVE DATA: The patient remains stable on full respiratory support. A CPAP trial will be attempted this morning. No other events noted. The patient has had adequate urinary output. OBJECTIVE DATA: VITAL SIGNS: Blood pressure is 106/54, respirations 16, pulse 77, temperature 98. I's and O's: Patient has 1400 in and 1800 out. HEENT: Head is normocephalic. NECK: Supple. HEART: Regular rate. LUNGS: Diminished breath sounds at the base. ABDOMEN: Soft, nontender to palpation. No rebound or guarding. EXTREMITIES: Negative for clubbing, cyanosis. Trace edema. DERMATOLOGIC: Clean. No rashes. MUSCULOSKELETAL: No joint effusion. NEUROLOGIC: No change in exam. MEDICATIONS: Reviewed. LABORATORY AND DIAGNOSTIC DATA: Shows a white count 6.4, hemoglobin 9.6, hematocrit 30.0. Platelet count is 189. Sodium 147, potassium 3.5, BUN 30, creatinine 1.05. Chest x-ray shows no change. ASSESSMENT AND PLAN: 1. Ventilatory-dependent respiratory failure. Vent settings and ABGs reviewed. Continue weaning per Pulmonary. 2. Sepsis status post shock. Currently off pressors. Continue current antibiotic therapy. 3. Acute decompensated heart failure. Continue diuretic regimen. 4. Hypernatremia. Increase free water flushes 200 cc every 6 hours. 5. Nonoliguric acute kidney injury. Etiology secondary to hemodynamics and sepsis. Renal function is improving. Continue to monitor. 6. Hypokalemia. Continue to monitor and replete. 7. Anemia monitor H and H levels. Defer to Hematology. 8. History of chronic lymphocytic leukemia. Continue to monitor. Follow up with Hematology. 9. Mineral bone disorder. Monitor calcium and phosphorus levels. 10. Diabetes. Continue Accu-Cheks and insulin sliding scale. 11. Coronary artery disease. Continue medical management. 12. Pulmonary hypertension. 13. Pleural effusion. History of PleurX catheter. 14. Lower extremity deep vein thrombosis. Continue Lovenox. 15. Acute encephalopathy. Continue to monitor. 16. Gastrointestinal and deep venous thrombosis prophylaxis. Please note, I spent over 30 minutes of critical care time with this patient. Dictated By: Timo Mccracken DO /linette/sangita /Document#: [id number]
--- NOTE | 2017-01-20 08:35 | CONS ---
Date/Time of Note Date/Time of Note DATE: 01/20/17 TIME: 08:33 Consult Date/Type/Reason Admit Date/Time Jan 10, 2017 at 23:15 Initial Consult Date 01/11/17 Type of Consultation: CARDIOLOGY Ordering Provider: AUBREE PALMA DO Subjective CARDIOLOGY/ critical care follow up note: S: D/W staff and rhythm was reviewed. pt remains in afib. HR has been under good control BP is on low side but stabe now she is still on vent in ICU. pt is nonverbal. her old records were extensively reviewed pt's EF was normal at 50-55% on 01/01/17 CVP checked today about 12-15 now O: gen: intubated on vent but appears in resp distress. HEENT: Pupils are equal NECK: no stridor. CV: irregularly irregular. systolic murmur Chest: s/p pelurodex right side GI: soft NT ND. no rebound. no guarding ext: + trace LE edema neuro:Awake and alert. responds appropriately Derm: multiple echymosis psych; calm now ECG reviewed: afib RVR. ant infarct. CXR reviewed ECHO 01/11/17reviewed personally: 1. Normal left ventricular cavity size. Normal left ventricular wall thickness. Severe left ventricular systolic dysfunction. Ejection fraction is visually estimated at 25 %. Multiple segmental wall motion abnormalities. 2. There is mild enlargement of left atrium. 3. Mild mitral leaflet calcification. Mild mitral annular calcification. Mild mitral valve regurgitation. 4. Aortic sclerosis without stenosis. Trace aortic valve regurgitation. 5. Normal appearance of the tricuspid valve. Estimated peak PA systolic pressure 53 mmHg. There is mild tricuspid regurgitation. 6. Inferior vena cava without respiratory collapse, however, patient on ventilator. ECHO 01/01/17: per review of old charts. EF 50-55%. LAE. MOD/ SEVERE MR. Objective Vital Signs Date Time Temp Pulse Resp B/P Pulse Ox O2 Delivery O2 Flow Rate FiO2 01/20/17 06:00 77 16 106/54 100 Mechanical Ventilator 01/20/17 05:11 30 01/20/17 04:00 98.0 Intake and Output 01/19/17 01/19/17 01/20/17 15:00 23:00 07:00 Intake Total 911.0 ml 321.0 ml 188.5 ml Output Total 1205 ml 350 ml 225 ml Balance -294.0 ml -29.0 ml -36.5 ml Results/Medications Result Diagram: 01/20/17 0415 01/20/17 0415 Results 24 hrs Laboratory Tests Test 01/19/17 08:41 01/19/17 12:49 01/19/17 17:46 01/19/17 21:32 Bedside Glucose 142 161 147 136 Test 01/20/17 00:59 01/20/17 04:15 01/20/17 05:14 01/20/17 05:23 Bedside Glucose 120 120 White Blood Count 6.4 Red Blood Count 3.18 L Hemoglobin 9.6 #L Hematocrit 30.0 L Mean Corpuscular Volume 94.3 Mean Corpuscular Hemoglobin 30.2 Mean Corpuscular Hemoglobin Concent 32.0 Red Cell Distribution Width 16.1 H Platelet Count 189 Mean Platelet Volume 10.5 H Neutrophils % Lymphocytes % Monocytes % Eosinophils % Basophils % Nucleated Red Blood Cells % 0.0 Neutrophils # Lymphocytes # Monocytes # Eosinophils # Basophils # Nucleated Red Blood Cells # Sodium Level 147 H Potassium Level 3.5 Chloride Level 107 Carbon Dioxide Level 32 H Anion Gap 12 Blood Urea Nitrogen 30 H Creatinine 1.05 H Glucose Level 127 Calcium Level 9.3 Phosphorus Level 3.5 Magnesium Level 2.1 Total Bilirubin 0.3 Direct Bilirubin 0.00 Indirect Bilirubin 0.3 Aspartate Amino Transf (AST/SGOT) 30 Alanine Aminotransferase (ALT/SGPT) 32 Alkaline Phosphatase 49 B-Type Natriuretic Peptide 6070 H Total Protein 5.9 L Albumin 3.6 Globulin 2.30 Albumin/Globulin Ratio 1.56 Digoxin Level 0.7 L Lab Scanned Report BLOOD TRANSFUSION Medications Current Medications Propofol 100 ml @ 2.045 mls/ hr Q12H IV Last administered on 01/12/17 08:16; Admin Dose 10.227 MLS/HR; Start 01/11/17 at 01:30 Vancomycin HCl (Vancocin) 250 ml @ 125 mls/hr Q24H IVPB Last administered on 08:46; Admin Dose 125 MLS/HR; Start 01/11/17 at 09:00 Enoxaparin Sodium 70 mg 70 mg Q12 SC Last administered on 01/19/17 21:32; Admin Dose 70 MG; Start 01/11/17 at 12:30 Meropenem/Sodium Chloride 50 ml @ 100 mls/hr Q12 IVPB Last administered on 21:29; Admin Dose 100 MLS/HR; Start 01/11/17 at 14:30 Phenylephrine HCl/ Dextrose (Baudilio-Syneph/D5W) 250 ml @ 10 mls/hr TITRATE IV Last administered on 01/17/17 00:00; Admin Dose 7.5 MLS/HR; Start 01/12/17 at 06:00 Mupirocin (Bactroban) 1 applic BID TOP Last administered on 01/19/17 21:33; Admin Dose 1 APPLIC; Start 01/12/17 at 13:00 Morphine Sulfate (morphine) 1 mg Q4H PRN IV PAIN Last administered on 08:07; Admin Dose 1 MG; Start 01/12/17 at 19:00 Diagnostic Test (Pha) (Accu-Chek) 1 ea 02 XX Last administered on 01/15/17 00: 50; Admin Dose 1 EA; Start 01/14/17 at 02:00 Insulin Aspart (Novolog Insulin Pen) NOVOLOG *MILD* ALGORI... Q4 SC Last administered on 01/19/17 17:50; Admin Dose 1 UNIT; Start 01/13/17 at 09:00 Miscellaneous Information 1 ea NOTE XX ; Start 01/13/17 at 07:00 Glucose (Glutose) 15 gm Q15M PRN PO DECREASED GLUCOSE; Start 01/13/17 at 07:00 Glucose (Glutose) 22.5 gm Q15M PRN PO DECREASED GLUCOSE; Start 01/13/17 at 07: 00 Dextrose (D50w Syringe) 25 ml Q15M PRN IV DECREASED GLUCOSE; Start 01/13/17 at 07:00 Dextrose (D50w Syringe) 50 ml Q15M PRN IV DECREASED GLUCOSE; Start 01/13/17 at 07:00 Glucagon (Glucagen) 1 mg Q15M PRN IM DECREASED GLUCOSE; Start 01/13/17 at 07:00 Glucose (Glutose) 15 gm Q15M PRN BUCCAL DECREASED GLUCOSE; Start 01/13/17 at 07 :00 Carvedilol 3.125 mg 3.125 mg BID NGT Last administered on 01/19/17 21:30; Admin Dose 3.125 MG; Start 01/13/17 at 09:00 Midazolam HCl 50 ml @ 1 mls/hr TITRATE IV Last administered on 01/19/17 21:36 ; Admin Dose 3 MLS/HR; Start 01/14/17 at 12:00 Fentanyl (Sublimaze) 100 ml @ 2.5 mls/hr TITRATE IV Last administered on 10:05; Admin Dose 2.5 MLS/HR; Start 01/14/17 at 13:00 Nystatin (Nystatin Powder) 1 applic BID TOP Last administered on 01/19/17 21: 34; Admin Dose 1 APPLIC; Start 01/14/17 at 15:00 Fluconazole (Diflucan) 100 mg DAILY PO Last administered on 01/19/17 08:50; Admin Dose 100 MG; Start 01/16/17 at 09:00 Furosemide (Lasix) 40 mg DAILY IV Last administered on 01/19/17 08:49; Admin Dose 40 MG; Start 01/18/17 at 09:00 Assessment/Plan Chief Complaint/Hosp Course 1. shock: cardiogenic and septic combination : BP has improved now 2. CHF: acute on chronic probably due to systolic and diastolic heart failure 3. acute hypoxemic/ hypercapnic resp failure: s/ p re-intubation now 4. Afib with RVR: HR is under much better control now 5. HX CAD 6/ HX PCI RCA 2009 7. HX HTN: now hypotensive 8. Electrolytes abnormalities. 9. hx CLL 10. ANEMIA 11. Lactic acidosis 12. dyslipidemia 13./ hx DVT ( treated with XARELTO at home). on lovenox here. 14. severe cardiomyopathy now with EF 20% (. EF was 50-55% on 01/01/17 per review of old records) REC: cont ICU care and vent support for now. PULM CONSULT input is greatly appreciated. weaning trial today if able to tolerate it. will give dig prn. currently HR is under good control. ECHO shows severe LV dysfunction now. will consider ischemic work up once more stable and extubated. coreg as tolerated. CONT ICU CARE. cont lasix. will give Kcl prn as well. s/p transfusion per hem/onc rec. will check stool OB thank you. CHINO MERCEDES MD [facility] Problems: CHINO MERCEDES MD Jan 20, 2017 08:35
[2017-01-20] MEDS: NYSTATIN 30 GM POWDER BTL TOP SCH ×2 (08:51→21:00)
[2017-01-20] MEDS: BALSAM PERU/CASTOR OIL 60 GM TUBE TOP SCH ×2 (08:52→21:00)
[2017-01-20] MEDS: MEROPENEM 500MG/50 ML (PMX) 50 ML IVPB SCH ×2 (08:52→20:59)
[2017-01-20] MEDS: MUPIROCIN 2% 22 GM OINT TOP SCH ×2 (08:52→21:00)
[2017-01-20] MEDS: FUROSEMIDE 40 MG INJ IV SCH (08:52)
[2017-01-20] MEDS: VANCOMYCIN 1 GM in NS 250 ML IVPB SCH (08:53)
[2017-01-20] MEDS: FLUCONAZOLE 100 MG TAB PO SCH (08:53)
[2017-01-20] MEDS: ENOXAPARIN 80 MG/0.8 ML SYG SC SCH ×2 (08:55→21:05)
[2017-01-20] MEDS ORDERED: POTASSIUM CHLORIDE 20 MEQ POWDER FOR ORAL SOLN NGT ONE (09:00)
[2017-01-20 10:03] LABS: ANISOCYTOSIS 1+ (0-0); EOSINOPHILS % (M) 3 % (0-7); METAMYELOCYTES %M 1 % (0-0); MONOCYTES % (M) 21 % (0-11); PLATELET ESTIMATE NORMAL; POIKILOCYTOSIS 1+ (0-0); POLYCHROMASIA 1+ (0-0); REACTIVE LYMPHOCYTES% (M) 11 % (0-0)
--- NOTE | 2017-01-20 10:11 | CONS ---
Date/Time of Note Date/Time of Note DATE: 01/20/17 TIME: 10:08 Assessment/Plan Assessment/Plan Chief Complaint/Hosp Course Consult dictated #[id number] Problems: Additional Assessment/Plan Ventilator setting; AC of 16, tidal volume 400, PEEP of 5, 40% FiO2. Assessment and recommendations; 1. Patient admitted with sepsis and pneumonia as well as CHF exacerbation with significant radiological improvement. 2. Severe generalized deconditioning precluding weaning from ventilator at this point. 3. History of chronic lymphocytic leukemia. 4. History of recurrent pleural effusions, status post Pleurx catheter placement on right side in the past. Next Patient now has been re-sedated. Switched over to SIMV with a rate of 10, pressure support of 10. Patient likely will need to have a tracheostomy performed. Consultation Date/Type/Reason Admit Date/Time Jan 10, 2017 at 23:15 Initial Consult Date 01/11/17 Type of Consultation: Pulmonary/critical care Referring Provider: AUBREE PALMA DO 24 HR Interval Summary Free Text/Dictation Patient condition remains critical. She has been off sedation for at least 2 hours now and is completely awake alert. Patient was again given a CPAP trial at bedside and she completely failed to meet weaning criteria. Becoming immediately tachypneic and appearing in respiratory distress. Patient now has been re-sedated. Switched over to SIMV mode instead of full assist control mode. General exam; elderly woman, orally intubated, awake and alert. Exam/Review of Systems Vital Signs Vitals Vital Signs Date Time Temp Pulse Resp B/P Pulse Ox O2 Delivery O2 Flow Rate FiO2 01/20/17 08:30 89 20 117/66 100 Mechanical Ventilator 01/20/17 08:00 98.0 01/20/17 05:11 30 Intake and Output 01/19/17 01/19/17 01/20/17 15:00 23:00 07:00 Intake Total 911.0 ml 321.0 ml 188.5 ml Output Total 1205 ml 350 ml 225 ml Balance -294.0 ml -29.0 ml -36.5 ml Exam HEENT exam; supple neck, positive JVD. No lymphadenopathy. Midline trachea. No thyromegaly. Orally intubated. Patient is mostly edentulous. Chest exam; diminished breath on lung bases bilaterally. Upper lobes are clear to auscultation. S1-S2 audible, no murmurs. Regular rhythm. Pleurx catheter in place involving the right lower lateral chest wall. Abdomen exam; soft, no organomegaly. Bowel sounds audible. Extremity exam; no edema. [employer] exam; patient awake and fairly alert. Results Result Diagram: 01/20/17 0415 01/20/17 0415 Results 24 hrs Laboratory Tests Test 01/19/17 12:49 01/19/17 17:46 01/19/17 21:32 01/20/17 00:59 Bedside Glucose 161 147 136 120 Test 01/20/17 04:15 01/20/17 05:14 01/20/17 05:23 01/20/17 08:43 White Blood Count 6.4 Red Blood Count 3.18 L Hemoglobin 9.6 #L Hematocrit 30.0 L Mean Corpuscular Volume 94.3 Mean Corpuscular Hemoglobin 30.2 Mean Corpuscular Hemoglobin Concent 32.0 Red Cell Distribution Width 16.1 H Platelet Count 189 Mean Platelet Volume 10.5 H Neutrophils % Segmented Neutrophils % (Manual) 18 L Band Neutrophils % (Manual) 2 Lymphocytes % Lymphocytes % (Manual) 45 Reactive Lymphocytes % (Manual) 11 H Monocytes % Monocytes % (Manual) 21 H Eosinophils % Eosinophils % (Manual) 3 Basophils % Metamyelocytes % (manual) 1 H Nucleated Red Blood Cells % 0.0 Neutrophils # Neutrophils # (Manual) 1.2 L Band Neutrophils # 0.1 Absolute Lymphocytes (Manual) 2.8 Lymphocytes # Reactive Lymphocytes # 0.7 H Monocytes # Absolute Monocytes (Manual) 1.3 H Eosinophils # Basophils # Metamyelocytes # 0.0 Nucleated Red Blood Cells # Platelet Estimate NORMAL Polychromasia 1+ Poikilocytosis 1+ Anisocytosis 1+ Elliptocytes 1+ Sodium Level 147 H Potassium Level 3.5 Chloride Level 107 Carbon Dioxide Level 32 H Anion Gap 12 Blood Urea Nitrogen 30 H Creatinine 1.05 H Glucose Level 127 Calcium Level 9.3 Phosphorus Level 3.5 Magnesium Level 2.1 Total Bilirubin 0.3 Direct Bilirubin 0.00 Indirect Bilirubin 0.3 Aspartate Amino Transf (AST/SGOT) 30 Alanine Aminotransferase (ALT/SGPT) 32 Alkaline Phosphatase 49 B-Type Natriuretic Peptide 6070 H Total Protein 5.9 L Albumin 3.6 Globulin 2.30 Albumin/Globulin Ratio 1.56 Digoxin Level 0.7 L Bedside Glucose 120 140 Lab Scanned Report BLOOD TRANSFUSION Medications Medications Current Medications Propofol 100 ml @ 2.045 mls/ hr Q12H IV Last administered on 01/12/17 08:16; Admin Dose 10.227 MLS/HR; Start 01/11/17 at 01:30 Vancomycin HCl (Vancocin) 250 ml @ 125 mls/hr Q24H IVPB Last administered on 08:53; Admin Dose 125 MLS/HR; Start 01/11/17 at 09:00 Enoxaparin Sodium 70 mg 70 mg Q12 SC Last administered on 01/20/17 08:55; Admin Dose 70 MG; Start 01/11/17 at 12:30 Meropenem/Sodium Chloride 50 ml @ 100 mls/hr Q12 IVPB Last administered on 08:52; Admin Dose 100 MLS/HR; Start 01/11/17 at 14:30 Phenylephrine HCl/ Dextrose (Baudilio-Syneph/D5W) 250 ml @ 10 mls/hr TITRATE IV Last administered on 01/17/17 00:00; Admin Dose 7.5 MLS/HR; Start 01/12/17 at 06:00 Mupirocin (Bactroban) 1 applic BID TOP Last administered on 01/20/17 08:52; Admin Dose 1 APPLIC; Start 01/12/17 at 13:00 Morphine Sulfate (morphine) 1 mg Q4H PRN IV PAIN Last administered on 08:07; Admin Dose 1 MG; Start 01/12/17 at 19:00 Diagnostic Test (Pha) (Accu-Chek) 1 ea 02 XX Last administered on 01/15/17 00: 50; Admin Dose 1 EA; Start 01/14/17 at 02:00 Insulin Aspart (Novolog Insulin Pen) NOVOLOG *MILD* ALGORI... Q4 SC Last administered on 01/19/17 17:50; Admin Dose 1 UNIT; Start 01/13/17 at 09:00 Miscellaneous Information 1 ea NOTE XX ; Start 01/13/17 at 07:00 Glucose (Glutose) 15 gm Q15M PRN PO DECREASED GLUCOSE; Start 01/13/17 at 07:00 Glucose (Glutose) 22.5 gm Q15M PRN PO DECREASED GLUCOSE; Start 01/13/17 at 07: 00 Dextrose (D50w Syringe) 25 ml Q15M PRN IV DECREASED GLUCOSE; Start 01/13/17 at 07:00 Dextrose (D50w Syringe) 50 ml Q15M PRN IV DECREASED GLUCOSE; Start 01/13/17 at 07:00 Glucagon (Glucagen) 1 mg Q15M PRN IM DECREASED GLUCOSE; Start 01/13/17 at 07:00 Glucose (Glutose) 15 gm Q15M PRN BUCCAL DECREASED GLUCOSE; Start 01/13/17 at 07 :00 Carvedilol 3.125 mg 3.125 mg BID NGT Last administered on 01/20/17 08:53; Admin Dose 3.125 MG; Start 01/13/17 at 09:00 Midazolam HCl 50 ml @ 1 mls/hr TITRATE IV Last administered on 01/19/17 21:36 ; Admin Dose 3 MLS/HR; Start 01/14/17 at 12:00 Fentanyl (Sublimaze) 100 ml @ 2.5 mls/hr TITRATE IV Last administered on 10:05; Admin Dose 2.5 MLS/HR; Start 01/14/17 at 13:00 Nystatin (Nystatin Powder) 1 applic BID TOP Last administered on 01/20/17 08: 51; Admin Dose 1 APPLIC; Start 01/14/17 at 15:00 Fluconazole (Diflucan) 100 mg DAILY PO Last administered on 01/20/17 08:53; Admin Dose 100 MG; Start 01/16/17 at 09:00 Furosemide (Lasix) 40 mg DAILY IV Last administered on 01/20/17 08:52; Admin Dose 40 MG; Start 01/18/17 at 09:00 Miscellaneous Information (*Rx Drug Level Order Reminder*) VANCOMYCIN TROUGH ON @ 8... ONCE ONCE XX ; Start 01/21/17 at 08:00; Stop 01/21/17 at 08:01 RADHA CAMACHO Jan 20, 2017 10:11
--- NOTE | 2017-01-20 11:52 | CONS ---
Date/Time of Note Date/Time of Note DATE: 01/20/17 TIME: 11:50 Assessment/Plan Assessment/Plan Chief Complaint/Hosp Course SUBJECTIVE DATA: NPatient is awake, comfortable on vent, denies pain Temperature 98 pulse 90 respirations 18 blood pressure 106/60 saturation 100 on 30 FiO2 WBC 6.4 H&H 9.6 and 30 platelets 189 BUN 30 creatinine 1.05 INDWELLINGS: Endotracheal tube, NG tube, left IJ triple-lumen catheter, Sifuentes, right chest PleurX. ANTIMICROBIALS: 1. Fluconazole. 2. Meropenem. 3. Vancomycin. Day #10 PHYSICAL EXAMINATION: GENERAL: This is a well-developed, elderly woman, who is lying comfortably in bed. HEENT: Head atraumatic, normocephalic. Sclerae anicteric. Buccal mucosa dry. NECK: Supple. CHEST: Rise symmetrical. Breath sounds diminished at the bases. HEART: S1, S2. ABDOMEN: Soft, bowel sounds present. EXTREMITIES: With trace edema. Peripheral pulses palpable. ASSESSMENT: 1. Status post septic shock. 2. Acute respiratory failure, patient was re-intubated. 3. Healthcare-associated pneumonia, possibly aspiration type. 4. Congestive heart failure exacerbation. 5. Chronic lymphocytic leukemia. 6. Recurrent pleural effusions, status post right PleurX catheter placement. 7. Diabetes. 8. History of deep venous thrombosis and atrial fibrillation. 9. Dominga albicans urinary tract infection. 10. Methicillin-resistant Staphylococcus aureus nares colonization. PLAN: The patient remains hemodynamically stable. Continue present care, antibiotics, vent management per pulmonary. Follow recommendations of consultants. Problems: Consultation Date/Type/Reason Admit Date/Time Jan 10, 2017 at 23:15 Initial Consult Date 01/10/17 Type of Consultation: ID Referring Provider: AUBREE PALMA DO Exam/Review of Systems Vital Signs Vitals Vital Signs Date Time Temp Pulse Resp B/P Pulse Ox O2 Delivery O2 Flow Rate FiO2 01/20/17 11:00 30 01/20/17 10:00 87 25 122/59 99 01/20/17 09:00 Mechanical Ventilator 01/20/17 08:00 98.0 Intake and Output 01/19/17 01/19/17 01/20/17 15:00 23:00 07:00 Intake Total 911.0 ml 321.0 ml 188.5 ml Output Total 1205 ml 350 ml 225 ml Balance -294.0 ml -29.0 ml -36.5 ml Results Result Diagram: 01/20/17 0415 01/20/17 0415 Results 24 hrs Laboratory Tests Test 01/19/17 12:49 01/19/17 17:46 01/19/17 21:32 01/20/17 00:59 Bedside Glucose 161 147 136 120 Test 01/20/17 04:15 01/20/17 05:14 01/20/17 05:23 01/20/17 08:43 White Blood Count 6.4 Red Blood Count 3.18 L Hemoglobin 9.6 #L Hematocrit 30.0 L Mean Corpuscular Volume 94.3 Mean Corpuscular Hemoglobin 30.2 Mean Corpuscular Hemoglobin Concent 32.0 Red Cell Distribution Width 16.1 H Platelet Count 189 Mean Platelet Volume 10.5 H Neutrophils % Segmented Neutrophils % (Manual) 18 L Band Neutrophils % (Manual) 2 Lymphocytes % Lymphocytes % (Manual) 45 Reactive Lymphocytes % (Manual) 11 H Monocytes % Monocytes % (Manual) 21 H Eosinophils % Eosinophils % (Manual) 3 Basophils % Metamyelocytes % (manual) 1 H Nucleated Red Blood Cells % 0.0 Neutrophils # Neutrophils # (Manual) 1.2 L Band Neutrophils # 0.1 Absolute Lymphocytes (Manual) 2.8 Lymphocytes # Reactive Lymphocytes # 0.7 H Monocytes # Absolute Monocytes (Manual) 1.3 H Eosinophils # Basophils # Metamyelocytes # 0.0 Nucleated Red Blood Cells # Platelet Estimate NORMAL Polychromasia 1+ Poikilocytosis 1+ Anisocytosis 1+ Elliptocytes 1+ Sodium Level 147 H Potassium Level 3.5 Chloride Level 107 Carbon Dioxide Level 32 H Anion Gap 12 Blood Urea Nitrogen 30 H Creatinine 1.05 H Glucose Level 127 Calcium Level 9.3 Phosphorus Level 3.5 Magnesium Level 2.1 Total Bilirubin 0.3 Direct Bilirubin 0.00 Indirect Bilirubin 0.3 Aspartate Amino Transf (AST/SGOT) 30 Alanine Aminotransferase (ALT/SGPT) 32 Alkaline Phosphatase 49 B-Type Natriuretic Peptide 6070 H Total Protein 5.9 L Albumin 3.6 Globulin 2.30 Albumin/Globulin Ratio 1.56 Digoxin Level 0.7 L Bedside Glucose 120 140 Lab Scanned Report BLOOD TRANSFUSION Medications Medications Current Medications Propofol 100 ml @ 2.045 mls/ hr Q12H IV Last administered on 01/12/17 08:16; Admin Dose 10.227 MLS/HR; Start 01/11/17 at 01:30 Vancomycin HCl (Vancocin) 250 ml @ 125 mls/hr Q24H IVPB Last administered on 08:53; Admin Dose 125 MLS/HR; Start 01/11/17 at 09:00 Enoxaparin Sodium 70 mg 70 mg Q12 SC Last administered on 01/20/17 08:55; Admin Dose 70 MG; Start 01/11/17 at 12:30 Meropenem/Sodium Chloride 50 ml @ 100 mls/hr Q12 IVPB Last administered on 08:52; Admin Dose 100 MLS/HR; Start 01/11/17 at 14:30 Phenylephrine HCl/ Dextrose (Baudilio-Syneph/D5W) 250 ml @ 10 mls/hr TITRATE IV Last administered on 01/17/17 00:00; Admin Dose 7.5 MLS/HR; Start 01/12/17 at 06:00 Mupirocin (Bactroban) 1 applic BID TOP Last administered on 01/20/17 08:52; Admin Dose 1 APPLIC; Start 01/12/17 at 13:00 Morphine Sulfate (morphine) 1 mg Q4H PRN IV PAIN Last administered on 08:07; Admin Dose 1 MG; Start 01/12/17 at 19:00 Diagnostic Test (Pha) (Accu-Chek) 1 ea 02 XX Last administered on 01/15/17 00: 50; Admin Dose 1 EA; Start 01/14/17 at 02:00 Insulin Aspart (Novolog Insulin Pen) NOVOLOG *MILD* ALGORI... Q4 SC Last administered on 01/19/17 17:50; Admin Dose 1 UNIT; Start 01/13/17 at 09:00 Miscellaneous Information 1 ea NOTE XX ; Start 01/13/17 at 07:00 Glucose (Glutose) 15 gm Q15M PRN PO DECREASED GLUCOSE; Start 01/13/17 at 07:00 Glucose (Glutose) 22.5 gm Q15M PRN PO DECREASED GLUCOSE; Start 01/13/17 at 07: 00 Dextrose (D50w Syringe) 25 ml Q15M PRN IV DECREASED GLUCOSE; Start 01/13/17 at 07:00 Dextrose (D50w Syringe) 50 ml Q15M PRN IV DECREASED GLUCOSE; Start 01/13/17 at 07:00 Glucagon (Glucagen) 1 mg Q15M PRN IM DECREASED GLUCOSE; Start 01/13/17 at 07:00 Glucose (Glutose) 15 gm Q15M PRN BUCCAL DECREASED GLUCOSE; Start 01/13/17 at 07 :00 Carvedilol 3.125 mg 3.125 mg BID NGT Last administered on 01/20/17 08:53; Admin Dose 3.125 MG; Start 01/13/17 at 09:00 Midazolam HCl 50 ml @ 1 mls/hr TITRATE IV Last administered on 01/19/17 21:36 ; Admin Dose 3 MLS/HR; Start 01/14/17 at 12:00 Fentanyl (Sublimaze) 100 ml @ 2.5 mls/hr TITRATE IV Last administered on 10:05; Admin Dose 2.5 MLS/HR; Start 01/14/17 at 13:00 Nystatin (Nystatin Powder) 1 applic BID TOP Last administered on 01/20/17 08: 51; Admin Dose 1 APPLIC; Start 01/14/17 at 15:00 Fluconazole (Diflucan) 100 mg DAILY PO Last administered on 01/20/17 08:53; Admin Dose 100 MG; Start 01/16/17 at 09:00 Furosemide (Lasix) 40 mg DAILY IV Last administered on 01/20/17 08:52; Admin Dose 40 MG; Start 01/18/17 at 09:00 Miscellaneous Information (*Rx Drug Level Order Reminder*) VANCOMYCIN TROUGH ON @ 8... ONCE ONCE XX ; Start 01/21/17 at 08:00; Stop 01/21/17 at 08:01 MARIAM LINTON NP Jan 20, 2017 11:52
[2017-01-20] MEDS: MIDAZOLAM (DRIP) 50 mg/50 mL 50 ML IV SCH (17:58)
--- NOTE | 2017-01-20 18:57 | CONS ---
Date/Time of Note Date/Time of Note DATE: 01/20/17 TIME: 18:56 Assessment/Plan Assessment/Plan Chief Complaint/Hosp Course CLL- ON TREATMENT post chemo TREATMENT - ON HOLD ANEMIA MONITOR BLOOD COUNT CLOSELY OBSERVE FOR BLEEDING AND HEMOLYSIS STOOL OB -P TRANSFUSE PRBC NEEDED Respiratory failure. Septic shock. Acute decompensated heart failure. Nonoliguric acute kidney injury with unknown baseline creatinine. Etiology secondary to septic acute kidney injury, acute tubular necrosis. Mineral bone disorder. Diabetes. Continue Accu-Cheks and sliding scale. Coronary artery disease. Pulmonary hypertension. Pleural effusions with history of PleurX catheter, currently nonfunctional. Problems: Consultation Date/Type/Reason Admit Date/Time Jan 10, 2017 at 23:15 Initial Consult Date 01/11/17 Type of Consultation: [facility] Referring Provider: AUBREE PALMA DO 24 HR Interval Summary Free Text/Dictation all noted post 1 U PRBC Exam/Review of Systems Vital Signs Vitals Vital Signs Date Time Temp Pulse Resp B/P Pulse Ox O2 Delivery O2 Flow Rate FiO2 01/20/17 18:00 90 16 98/50 100 Mechanical Ventilator 01/20/17 17:10 30 01/20/17 16:00 98.4 Intake and Output 01/19/17 01/19/17 01/20/17 15:00 23:00 07:00 Intake Total 911.0 ml 321.0 ml 188.5 ml Output Total 1205 ml 350 ml 225 ml Balance -294.0 ml -29.0 ml -36.5 ml Exam HEENT: Head is normocephalic. NECK: Supple. HEART: Regular rate. LUNGS: Diminished breath sounds at the base. ABDOMEN: Soft, nontender to palpation. No rebound or guarding. EXTREMITIES: Negative for clubbing, cyanosis. No edema. DERMATOLOGIC: No rashes. MUSCULOSKELETAL: No joint effusion. NEUROLOGIC: No change in exam. Results Result Diagram: 01/20/17 0415 01/20/17 0415 Results 24 hrs Laboratory Tests Test 01/19/17 21:32 01/20/17 00:59 01/20/17 04:15 01/20/17 05:14 Bedside Glucose 136 120 120 White Blood Count 6.4 Red Blood Count 3.18 L Hemoglobin 9.6 #L Hematocrit 30.0 L Mean Corpuscular Volume 94.3 Mean Corpuscular Hemoglobin 30.2 Mean Corpuscular Hemoglobin Concent 32.0 Red Cell Distribution Width 16.1 H Platelet Count 189 Mean Platelet Volume 10.5 H Neutrophils % Segmented Neutrophils % (Manual) 18 L Band Neutrophils % (Manual) 2 Lymphocytes % Lymphocytes % (Manual) 45 Reactive Lymphocytes % (Manual) 11 H Monocytes % Monocytes % (Manual) 21 H Eosinophils % Eosinophils % (Manual) 3 Basophils % Metamyelocytes % (manual) 1 H Nucleated Red Blood Cells % 0.0 Neutrophils # Neutrophils # (Manual) 1.2 L Band Neutrophils # 0.1 Absolute Lymphocytes (Manual) 2.8 Lymphocytes # Reactive Lymphocytes # 0.7 H Monocytes # Absolute Monocytes (Manual) 1.3 H Eosinophils # Basophils # Metamyelocytes # 0.0 Nucleated Red Blood Cells # Platelet Estimate NORMAL Polychromasia 1+ Poikilocytosis 1+ Anisocytosis 1+ Elliptocytes 1+ Sodium Level 147 H Potassium Level 3.5 Chloride Level 107 Carbon Dioxide Level 32 H Anion Gap 12 Blood Urea Nitrogen 30 H Creatinine 1.05 H Glucose Level 127 Calcium Level 9.3 Phosphorus Level 3.5 Magnesium Level 2.1 Total Bilirubin 0.3 Direct Bilirubin 0.00 Indirect Bilirubin 0.3 Aspartate Amino Transf (AST/SGOT) 30 Alanine Aminotransferase (ALT/SGPT) 32 Alkaline Phosphatase 49 B-Type Natriuretic Peptide 6070 H Total Protein 5.9 L Albumin 3.6 Globulin 2.30 Albumin/Globulin Ratio 1.56 Digoxin Level 0.7 L Test 01/20/17 05:23 01/20/17 08:43 01/20/17 13:04 01/20/17 16:46 Lab Scanned Report BLOOD TRANSFUSION Bedside Glucose 140 160 129 Medications Medications Current Medications Propofol 100 ml @ 2.045 mls/ hr Q12H IV Last administered on 01/12/17 08:16; Admin Dose 10.227 MLS/HR; Start 01/11/17 at 01:30 Vancomycin HCl (Vancocin) 250 ml @ 125 mls/hr Q24H IVPB Last administered on 08:53; Admin Dose 125 MLS/HR; Start 01/11/17 at 09:00 Enoxaparin Sodium 70 mg 70 mg Q12 SC Last administered on 01/20/17 08:55; Admin Dose 70 MG; Start 01/11/17 at 12:30 Meropenem/Sodium Chloride 50 ml @ 100 mls/hr Q12 IVPB Last administered on 08:52; Admin Dose 100 MLS/HR; Start 01/11/17 at 14:30 Phenylephrine HCl/ Dextrose (Baudilio-Syneph/D5W) 250 ml @ 10 mls/hr TITRATE IV Last administered on 01/17/17 00:00; Admin Dose 7.5 MLS/HR; Start 01/12/17 at 06:00 Mupirocin (Bactroban) 1 applic BID TOP Last administered on 01/20/17 08:52; Admin Dose 1 APPLIC; Start 01/12/17 at 13:00 Morphine Sulfate (morphine) 1 mg Q4H PRN IV PAIN Last administered on 08:07; Admin Dose 1 MG; Start 01/12/17 at 19:00 Diagnostic Test (Pha) (Accu-Chek) 1 ea 02 XX Last administered on 01/15/17 00: 50; Admin Dose 1 EA; Start 01/14/17 at 02:00 Insulin Aspart (Novolog Insulin Pen) NOVOLOG *MILD* ALGORI... Q4 SC Last administered on 01/20/17 13:06; Admin Dose 1 UNIT; Start 01/13/17 at 09:00 Miscellaneous Information 1 ea NOTE XX ; Start 01/13/17 at 07:00 Glucose (Glutose) 15 gm Q15M PRN PO DECREASED GLUCOSE; Start 01/13/17 at 07:00 Glucose (Glutose) 22.5 gm Q15M PRN PO DECREASED GLUCOSE; Start 01/13/17 at 07: 00 Dextrose (D50w Syringe) 25 ml Q15M PRN IV DECREASED GLUCOSE; Start 01/13/17 at 07:00 Dextrose (D50w Syringe) 50 ml Q15M PRN IV DECREASED GLUCOSE; Start 01/13/17 at 07:00 Glucagon (Glucagen) 1 mg Q15M PRN IM DECREASED GLUCOSE; Start 01/13/17 at 07:00 Glucose (Glutose) 15 gm Q15M PRN BUCCAL DECREASED GLUCOSE; Start 01/13/17 at 07 :00 Carvedilol 3.125 mg 3.125 mg BID NGT Last administered on 01/20/17 08:53; Admin Dose 3.125 MG; Start 01/13/17 at 09:00 Midazolam HCl 50 ml @ 1 mls/hr TITRATE IV Last administered on 01/20/17 17:58 ; Admin Dose 3 MLS/HR; Start 01/14/17 at 12:00 Fentanyl (Sublimaze) 100 ml @ 2.5 mls/hr TITRATE IV Last administered on 10:05; Admin Dose 2.5 MLS/HR; Start 01/14/17 at 13:00 Nystatin (Nystatin Powder) 1 applic BID TOP Last administered on 01/20/17 08: 51; Admin Dose 1 APPLIC; Start 01/14/17 at 15:00 Fluconazole (Diflucan) 100 mg DAILY PO Last administered on 01/20/17 08:53; Admin Dose 100 MG; Start 01/16/17 at 09:00 Furosemide (Lasix) 40 mg DAILY IV Last administered on 01/20/17 08:52; Admin Dose 40 MG; Start 01/18/17 at 09:00 Miscellaneous Information (*Rx Drug Level Order Reminder*) VANCOMYCIN TROUGH ON @ 8... ONCE ONCE XX ; Start 01/21/17 at 08:00; Stop 01/21/17 at 08:01 SE RAY MD Jan 20, 2017 18:57
[2017-01-21] VITALS (58 sets, daily range): BP systolic 88–115; BP diastolic 53–68; PULSE 76–95; RESP 7–17
[2017-01-21] MEDS: INSULIN ASPART [NOVOLOG] 3 ML PEN SC SCH ×6 (01:00→21:31)
[2017-01-21] MEDS: PROPOFOL 100 ML IV SCH ×2 (01:30→13:30)
[2017-01-21] MEDS: ACCU-CHEK XX SCH (01:54)
[2017-01-21 05:15] LABS: ABNORMAL IP MESSAGE 1; BASOPHILS % 0.2 % (0.0-2.0); EOSINOPHILS # 0.1 10^3/ul (0.0-0.5); EOSINOPHILS % 0.6 % (0.0-7.0); HEMATOCRIT 32.1 % (37.0-47.0); HEMOGLOBIN 9.7 g/dl (12.0-16.0); LYMPHOCYTES # 3.7 10^3/ul (0.8-2.9); LYMPHOCYTES % 43.8 % (15.0-51.0); MEAN CORPUSCULAR HEMOGLOBIN 28.5 pg (29.0-33.0); MEAN CORPUSCULAR HGB CONC 30.2 g/dl (32.0-37.0); MEAN CORPUSCULAR VOLUME 94.4 fl (82.0-101.0); MEAN PLATELET VOLUME 10.8 fl (7.4-10.4); MONOCYTE # 1.9 10^3/ul (0.3-0.9); MONOCYTES % 22.3 % (0.0-11.0); NEUTROPHIL # 2.4 10^3/ul (1.6-7.5); NEUTROPHILS % 28.2 % (39.0-77.0); PLATELET COUNT 209 10^3/UL (140-415); POSITIVE DIFF @See below; WHITE BLOOD COUNT 8.5 10^3/ul (4.8-10.8)
[2017-01-21 05:45] LABS: MAGNESIUM 2.1 mg/dl (1.7-2.5); PHOSPHORUS 3.8 mg/dl (2.5-4.9)
[2017-01-21 05:49] LABS: ALBUMIN 3.5 g/dl (3.3-4.9); ALBUMIN/GLOBULIN RATIO 1.25; BILIRUBIN,INDIRECT 0.3 mg/dl (0-1.1); BILIRUBIN,TOTAL 0.3 mg/dl (0.2-1.3); CALCIUM 9.8 mg/dl (8.4-10.2); CREATININE 1.15 mg/dl (0.44-1.00); TOTAL PROTEIN 6.3 g/dl (6.1-8.1)
[2017-01-21] MEDS: FENTAnyl (DRIP) 1000 mcg/100mL 100 ML IV SCH (07:16)
--- NOTE | 2017-01-21 07:39 | CONS ---
Date/Time of Note Date/Time of Note DATE: 01/21/17 TIME: 07:36 Consult Date/Type/Reason Admit Date/Time Jan 10, 2017 at 23:15 Initial Consult Date 01/11/17 Type of Consultation: cardiology Ordering Provider: AUBREE PALMA DO Subjective CARDIOLOGY/ critical care follow up note: S: D/W staff and rhythm was reviewed. pt remains in afib. HR has been under good control BP is on low side but still stable off of pressors,. she is still on vent in ICU. failed weaning yesterday again. pt is nonverbal. her old records were extensively reviewed pt's EF was normal at 50-55% on 01/01/17 CVP checked today about 4-6 now O: gen: intubated on vent but appears in resp distress. HEENT: Pupils are equal NECK: no stridor. CV: irregularly irregular. systolic murmur Chest: s/p pelurodex right side GI: soft NT ND. no rebound. no guarding ext: + trace LE edema neuro: sedated but opens her eyes. Derm: multiple echymosis psych; calm now ECG reviewed: afib RVR. ant infarct. CXR reviewed ECHO 01/11/17reviewed personally: 1. Normal left ventricular cavity size. Normal left ventricular wall thickness. Severe left ventricular systolic dysfunction. Ejection fraction is visually estimated at 25 %. Multiple segmental wall motion abnormalities. 2. There is mild enlargement of left atrium. 3. Mild mitral leaflet calcification. Mild mitral annular calcification. Mild mitral valve regurgitation. 4. Aortic sclerosis without stenosis. Trace aortic valve regurgitation. 5. Normal appearance of the tricuspid valve. Estimated peak PA systolic pressure 53 mmHg. There is mild tricuspid regurgitation. 6. Inferior vena cava without respiratory collapse, however, patient on ventilator. ECHO 01/01/17: per review of old charts. EF 50-55%. LAE. MOD/ SEVERE MR. Objective Vital Signs Date Time Temp Pulse Resp B/P Pulse Ox O2 Delivery O2 Flow Rate FiO2 01/21/17 06:00 89 16 105/59 99 Mechanical Ventilator 01/21/17 05:18 30 01/21/17 04:00 98.4 Intake and Output 01/20/17 01/20/17 01/21/17 15:00 23:00 07:00 Intake Total 626.5 ml 484.0 ml 578.5 ml Output Total 1350 ml 500 ml 255 ml Balance -723.5 ml -16.0 ml 323.5 ml Results/Medications Result Diagram: 01/21/17 0500 01/21/17 0400 Results 24 hrs Laboratory Tests Test 01/20/17 08:43 01/20/17 13:04 01/20/17 16:46 01/20/17 20:58 Bedside Glucose 140 160 129 131 Test 01/21/17 01:01 01/21/17 04:00 01/21/17 05:00 01/21/17 05:26 Bedside Glucose 125 137 Sodium Level 146 H Potassium Level 4.0 Chloride Level 106 Carbon Dioxide Level 32 H Anion Gap 12 Blood Urea Nitrogen 35 H Creatinine 1.15 H Glucose Level 130 Calcium Level 9.8 Phosphorus Level 3.8 Magnesium Level 2.1 Total Bilirubin 0.3 Direct Bilirubin 0.00 Indirect Bilirubin 0.3 Aspartate Amino Transf (AST/SGOT) 37 Alanine Aminotransferase (ALT/SGPT) 34 Alkaline Phosphatase 52 B-Type Natriuretic Peptide 4720 H Total Protein 6.3 Albumin 3.5 Globulin 2.80 Albumin/Globulin Ratio 1.25 White Blood Count 8.5 # Red Blood Count 3.40 L Hemoglobin 9.7 L Hematocrit 32.1 L Mean Corpuscular Volume 94.4 Mean Corpuscular Hemoglobin 28.5 L Mean Corpuscular Hemoglobin Concent 30.2 L Red Cell Distribution Width 16.0 H Platelet Count 209 Mean Platelet Volume 10.8 H Neutrophils % 28.2 L Lymphocytes % 43.8 Monocytes % 22.3 H Eosinophils % 0.6 Basophils % 0.2 Nucleated Red Blood Cells % 0.0 Neutrophils # 2.4 Lymphocytes # 3.7 H Monocytes # 1.9 H Eosinophils # 0.1 Basophils # 0.0 Nucleated Red Blood Cells # 0.0 Medications Current Medications Propofol 100 ml @ 2.045 mls/ hr Q12H IV Last administered on 01/12/17 08:16; Admin Dose 10.227 MLS/HR; Start 01/11/17 at 01:30 Vancomycin HCl (Vancocin) 250 ml @ 125 mls/hr Q24H IVPB Last administered on 08:53; Admin Dose 125 MLS/HR; Start 01/11/17 at 09:00 Enoxaparin Sodium 70 mg 70 mg Q12 SC Last administered on 01/20/17 21:05; Admin Dose 70 MG; Start 01/11/17 at 12:30 Meropenem/Sodium Chloride 50 ml @ 100 mls/hr Q12 IVPB Last administered on 20:59; Admin Dose 100 MLS/HR; Start 01/11/17 at 14:30 Phenylephrine HCl/ Dextrose (Baudilio-Syneph/D5W) 250 ml @ 10 mls/hr TITRATE IV Last administered on 01/17/17 00:00; Admin Dose 7.5 MLS/HR; Start 01/12/17 at 06:00 Mupirocin (Bactroban) 1 applic BID TOP Last administered on 01/20/17 21:00; Admin Dose 1 APPLIC; Start 01/12/17 at 13:00 Morphine Sulfate (morphine) 1 mg Q4H PRN IV PAIN Last administered on 08:07; Admin Dose 1 MG; Start 01/12/17 at 19:00 Diagnostic Test (Pha) (Accu-Chek) 1 ea 02 XX Last administered on 01/15/17 00: 50; Admin Dose 1 EA; Start 01/14/17 at 02:00 Insulin Aspart (Novolog Insulin Pen) NOVOLOG *MILD* ALGORI... Q4 SC Last administered on 01/20/17 13:06; Admin Dose 1 UNIT; Start 01/13/17 at 09:00 Miscellaneous Information 1 ea NOTE XX ; Start 01/13/17 at 07:00 Glucose (Glutose) 15 gm Q15M PRN PO DECREASED GLUCOSE; Start 01/13/17 at 07:00 Glucose (Glutose) 22.5 gm Q15M PRN PO DECREASED GLUCOSE; Start 01/13/17 at 07: 00 Dextrose (D50w Syringe) 25 ml Q15M PRN IV DECREASED GLUCOSE; Start 01/13/17 at 07:00 Dextrose (D50w Syringe) 50 ml Q15M PRN IV DECREASED GLUCOSE; Start 01/13/17 at 07:00 Glucagon (Glucagen) 1 mg Q15M PRN IM DECREASED GLUCOSE; Start 01/13/17 at 07:00 Glucose (Glutose) 15 gm Q15M PRN BUCCAL DECREASED GLUCOSE; Start 01/13/17 at 07 :00 Carvedilol 3.125 mg 3.125 mg BID NGT Last administered on 01/20/17 20:59; Admin Dose 3.125 MG; Start 01/13/17 at 09:00 Midazolam HCl 50 ml @ 1 mls/hr TITRATE IV Last administered on 01/20/17 17:58 ; Admin Dose 3 MLS/HR; Start 01/14/17 at 12:00 Fentanyl (Sublimaze) 100 ml @ 2.5 mls/hr TITRATE IV Last administered on 07:16; Admin Dose 2.5 MLS/HR; Start 01/14/17 at 13:00 Nystatin (Nystatin Powder) 1 applic BID TOP Last administered on 01/20/17 21: 00; Admin Dose 1 APPLIC; Start 01/14/17 at 15:00 Fluconazole (Diflucan) 100 mg DAILY PO Last administered on 01/20/17 08:53; Admin Dose 100 MG; Start 01/16/17 at 09:00 Furosemide (Lasix) 40 mg DAILY IV Last administered on 01/20/17 08:52; Admin Dose 40 MG; Start 01/18/17 at 09:00 Miscellaneous Information (*Rx Drug Level Order Reminder*) VANCOMYCIN TROUGH ON @ 8... ONCE ONCE XX ; Start 01/21/17 at 08:00; Stop 01/21/17 at 08:01 Assessment/Plan Chief Complaint/Hosp Course 1. shock: cardiogenic and septic combination : BP has improved now 2. CHF: acute on chronic probably due to systolic and diastolic heart failure: currently stable and appears compensated. 3. acute hypoxemic/ hypercapnic resp failure: s/ p re-intubation now 4. Afib with RVR: HR is under much better control now 5. HX CAD 6/ HX PCI RCA 2009 7. HX HTN: now hypotensive 8. Electrolytes abnormalities. 9. hx CLL 10. ANEMIA 11. Lactic acidosis: resolved now. 12. dyslipidemia 13./ hx DVT ( treated with XARELTO at home). on lovenox here. 14. severe cardiomyopathy now with EF 20% (. EF was 50-55% on 01/01/17 per review of old records) REC: cont ICU care and vent support for now. PULM CONSULT input is greatly appreciated. weaning trial has failed so far unfortunately. will give dig prn. currently HR is under good control. ECHO shows severe LV dysfunction now. will consider ischemic work up once/ if pt is more stable and extubated. coreg as tolerated. CONT ICU CARE. cont lasix. will give Kcl prn as well. s/p transfusion per hem/onc rec. will check stool OB thank you. CHINO MERCEDES MD [facility] Problems: CHINO MERCEDES MD Jan 21, 2017 07:39
[2017-01-21] MEDS: FLUCONAZOLE 100 MG TAB PO SCH (08:08)
[2017-01-21] MEDS: NYSTATIN 30 GM POWDER BTL TOP SCH ×2 (08:08→21:32)
[2017-01-21] MEDS: FUROSEMIDE 40 MG INJ IV SCH (08:08)
[2017-01-21] MEDS: POTASSIUM CHLORIDE 20 MEQ POWDER FOR ORAL SOLN GTB SCH (08:08)
[2017-01-21] MEDS: BALSAM PERU/CASTOR OIL 60 GM TUBE TOP SCH ×2 (08:09→21:32)
[2017-01-21] MEDS: MUPIROCIN 2% 22 GM OINT TOP SCH ×2 (08:09→21:33)
[2017-01-21] MEDS: ENOXAPARIN 80 MG/0.8 ML SYG SC SCH ×2 (08:13→21:32)
[2017-01-21] MEDS: MEROPENEM 500MG/50 ML (PMX) 50 ML IVPB SCH ×2 (08:20→21:28)
--- NOTE | 2017-01-21 08:30 | PN ---
DATE: 01/21/2017 SUBJECTIVE DATA: The patient failed a weaning trial yesterday. Will have another attempt of weaning today. No other events noted. No hemoptysis, hematemesis, hematochezia. OBJECTIVE DATA: VITAL SIGNS: Blood pressure is 105/59, respirations 16, pulse is 89, temperature 98.4. HEENT: Head is normocephalic. NECK: Supple. HEART: Regular rate. LUNGS: Diminished breath sounds at the base. ABDOMEN: Soft, nontender to palpation. No rebound or guarding. EXTREMITIES: Negative for clubbing, cyanosis. Trace edema. DERMATOLOGIC: Clean. No rashes. MUSCULOSKELETAL: No joint effusion. NEUROLOGIC: No change in exam. MEDICATIONS: Reviewed. LABORATORY AND DIAGNOSTIC DATA: Shows white count 8.5, hemoglobin 9.7, hematocrit 32.1, platelet count is 209, sodium 146, potassium 4.0, BUN 35, creatinine 1.15. ASSESSMENT AND PLAN: 1. Ventilatory-dependent respiratory failure. Vent settings and ABGs reviewed. The patient has failed multiple weaning attempts. May require trach. We will defer to Pulmonary. 2. Sepsis status post shock. Currently off pressors. Continue current antibiotic regimen. 3. Decompensated heart failure. Continue current medical management. Follow up with Cardiology. Continue diuretic therapy. 4. Hyponatremia. Continue free water flushes. We will increase to 200 mL every 4 hours. 5. Nonoliguric acute kidney injury with unknown baseline creatinine. Etiology secondary to hemodynamic sepsis. Renal function is improving. Continue current treatment plan. 6. Anemia. Monitor H and H levels. Follow up with Hematology. 7. History of chronic lymphocytic leukemia. Continue to monitor. Follow up with Hematology. 8. Mineral bone disorder. Monitor calcium and phosphorus levels. 9. Diabetes. Continue Accu-Cheks and insulin sliding scale. 10. Coronary artery disease. Continue medical management. 11. Pulmonary hypertension. 12. History of pleural effusion with PleurX catheter. 13. Lower extremity deep vein thrombosis. Continue medical management. Follow up with Hematology. 14. Acute encephalopathy. Etiology is toxic metabolic. 15. Gastrointestinal and deep venous thrombosis prophylaxis. Please note, I spent over 30 minutes of critical care time with this patient. Dictated By: Timo Mccracken DO /linette/mario /Document#: [id number]
--- NOTE | 2017-01-21 09:31 | CONS ---
Date/Time of Note Date/Time of Note DATE: 01/21/17 TIME: : Assessment/Plan Assessment/Plan Chief Complaint/Hosp Course Consult dictated #[id number] Problems: Additional Assessment/Plan Data setting; AC of 16, tidal volume 400, PEEP of 5, 30% FiO2. Patient is currently on Versed at 3 mg/h, fentanyl 25 mics per hour. Assessment and recommendations; 1. Patient admitted with CHF and pneumonia with significant radiological improvement. However unable to be weaned from ventilator due to severe ensuing tachypnea whenever patient is taken off sedation and put on CPAP mode. 2. History of chronic lymphocytic leukemia. 3. Generalized deconditioning. 4. History of recurrent pleural effusions, status post right sided Pleurx catheter placement in the past. Continue current treatment. Patient will likely need to have a tracheostomy performed. Family is still deciding about that. Meanwhile obtain follow-up chest x-ray. Consultation Date/Type/Reason Admit Date/Time Jan 10, 2017 at 23:15 Initial Consult Date 01/11/17 Type of Consultation: Pulmonary/critical care Referring Provider: AUBREE PALMA DO 24 HR Interval Summary Free Text/Dictation Patient's condition remains critical but stable has remained hemodynamically stable. Patient has failed multiple weaning attempts from ventilator. Currently back on assist control mode and has been re-sedated. Despite being on sedation patient is readily arousable. General exam; elderly woman, orally intubated, awake, currently in no distress. Exam/Review of Systems Vital Signs Vitals Vital Signs Date Time Temp Pulse Resp B/P Pulse Ox O2 Delivery O2 Flow Rate FiO2 01/21/17 09:00 85 16 106/64 Mechanical Ventilator 01/21/17 08:00 30 01/21/17 08:00 98.3 01/21/17 06:00 99 Intake and Output 01/20/17 01/20/17 01/21/17 15:00 23:00 07:00 Intake Total 626.5 ml 484.0 ml 578.5 ml Output Total 1350 ml 500 ml 255 ml Balance -723.5 ml -16.0 ml 323.5 ml Exam HEENT exam; supple neck, positive JVD. No lymphadenopathy. Midline trachea. No thyromegaly. Orally intubated. Patient edentulous. Chest exam; diminished but clear breath sounds. S1-S2 audible, no murmurs. Right-sided Pleurx catheter in place. Abdomen exam; soft, nontender tender. No organomegaly. Bowel sounds audible. Extremity exam; no peripheral edema. PROJECT CONTROL OFFICER exam; patient is awake and follows very simple commands like mouth opening. Results Result Diagram: 01/21/17 0500 01/21/17 0400 Results 24 hrs Laboratory Tests Test 01/20/17 13:04 01/20/17 16:46 01/20/17 20:58 01/21/17 01:01 Bedside Glucose 160 129 131 125 Test 01/21/17 04:00 01/21/17 05:00 01/21/17 05:26 01/21/17 08:07 Sodium Level 146 H Potassium Level 4.0 Chloride Level 106 Carbon Dioxide Level 32 H Anion Gap 12 Blood Urea Nitrogen 35 H Creatinine 1.15 H Glucose Level 130 Calcium Level 9.8 Phosphorus Level 3.8 Magnesium Level 2.1 Total Bilirubin 0.3 Direct Bilirubin 0.00 Indirect Bilirubin 0.3 Aspartate Amino Transf (AST/SGOT) 37 Alanine Aminotransferase (ALT/SGPT) 34 Alkaline Phosphatase 52 B-Type Natriuretic Peptide 4720 H Total Protein 6.3 Albumin 3.5 Globulin 2.80 Albumin/Globulin Ratio 1.25 White Blood Count 8.5 # Red Blood Count 3.40 L Hemoglobin 9.7 L Hematocrit 32.1 L Mean Corpuscular Volume 94.4 Mean Corpuscular Hemoglobin 28.5 L Mean Corpuscular Hemoglobin Concent 30.2 L Red Cell Distribution Width 16.0 H Platelet Count 209 Mean Platelet Volume 10.8 H Neutrophils % 28.2 L Lymphocytes % 43.8 Monocytes % 22.3 H Eosinophils % 0.6 Basophils % 0.2 Nucleated Red Blood Cells % 0.0 Neutrophils # 2.4 Lymphocytes # 3.7 H Monocytes # 1.9 H Eosinophils # 0.1 Basophils # 0.0 Nucleated Red Blood Cells # 0.0 Bedside Glucose 137 Vancomycin Level Trough 19.7 Test 01/21/17 08:11 Bedside Glucose 155 Medications Medications Current Medications Propofol 100 ml @ 2.045 mls/ hr Q12H IV Last administered on 01/12/17 08:16; Admin Dose 10.227 MLS/HR; Start 01/11/17 at 01:30 Vancomycin HCl (Vancocin) 250 ml @ 125 mls/hr Q24H IVPB Last administered on 08:53; Admin Dose 125 MLS/HR; Start 01/11/17 at 09:00 Enoxaparin Sodium 70 mg 70 mg Q12 SC Last administered on 01/21/17 08:13; Admin Dose 70 MG; Start 01/11/17 at 12:30 Meropenem/Sodium Chloride 50 ml @ 100 mls/hr Q12 IVPB Last administered on 08:20; Admin Dose 100 MLS/HR; Start 01/11/17 at 14:30 Phenylephrine HCl/ Dextrose (Baudilio-Syneph/D5W) 250 ml @ 10 mls/hr TITRATE IV Last administered on 01/17/17 00:00; Admin Dose 7.5 MLS/HR; Start 01/12/17 at 06:00 Mupirocin (Bactroban) 1 applic BID TOP Last administered on 01/21/17 08:09; Admin Dose 1 APPLIC; Start 01/12/17 at 13:00 Morphine Sulfate (morphine) 1 mg Q4H PRN IV PAIN Last administered on 08:07; Admin Dose 1 MG; Start 01/12/17 at 19:00 Diagnostic Test (Pha) (Accu-Chek) 1 ea 02 XX Last administered on 01/15/17 00: 50; Admin Dose 1 EA; Start 01/14/17 at 02:00 Insulin Aspart (Novolog Insulin Pen) NOVOLOG *MILD* ALGORI... Q4 SC Last administered on 01/21/17 08:19; Admin Dose 1 UNIT; Start 01/13/17 at 09:00 Miscellaneous Information 1 ea NOTE XX ; Start 01/13/17 at 07:00 Glucose (Glutose) 15 gm Q15M PRN PO DECREASED GLUCOSE; Start 01/13/17 at 07:00 Glucose (Glutose) 22.5 gm Q15M PRN PO DECREASED GLUCOSE; Start 01/13/17 at 07: 00 Dextrose (D50w Syringe) 25 ml Q15M PRN IV DECREASED GLUCOSE; Start 01/13/17 at 07:00 Dextrose (D50w Syringe) 50 ml Q15M PRN IV DECREASED GLUCOSE; Start 01/13/17 at 07:00 Glucagon (Glucagen) 1 mg Q15M PRN IM DECREASED GLUCOSE; Start 01/13/17 at 07:00 Glucose (Glutose) 15 gm Q15M PRN BUCCAL DECREASED GLUCOSE; Start 01/13/17 at 07 :00 Carvedilol 3.125 mg 3.125 mg BID NGT Last administered on 01/21/17 08:08; Admin Dose 3.125 MG; Start 01/13/17 at 09:00 Midazolam HCl 50 ml @ 1 mls/hr TITRATE IV Last administered on 01/20/17 17:58 ; Admin Dose 3 MLS/HR; Start 01/14/17 at 12:00 Fentanyl (Sublimaze) 100 ml @ 2.5 mls/hr TITRATE IV Last administered on 07:16; Admin Dose 2.5 MLS/HR; Start 01/14/17 at 13:00 Nystatin (Nystatin Powder) 1 applic BID TOP Last administered on 01/21/17 08: 08; Admin Dose 1 APPLIC; Start 01/14/17 at 15:00 Fluconazole (Diflucan) 100 mg DAILY PO Last administered on 01/21/17 08:08; Admin Dose 100 MG; Start 01/16/17 at 09:00 Furosemide (Lasix) 40 mg DAILY IV Last administered on 01/21/17 08:08; Admin Dose 40 MG; Start 01/18/17 at 09:00 Potassium Chloride (Potassium Chloride Pwd/Soln) 20 meq DAILY GTB Last administered on 01/21/17 08:08; Admin Dose 20 MEQ; Start 01/21/17 at 09:00 RADHA CAMACHO Jan 21, 2017 09:31
[2017-01-21] MEDS ORDERED: VANCOMYCIN 750 MG in SOD CHLORIDE 0.9% 150 ML IVPB SCH (11:00)
--- NOTE | 2017-01-21 11:31 | RADRPT ---
PROCEDURE: XR Chest 1 view. CLINICAL INDICATION: Shortness of breath. TECHNIQUE: AP views of the chest were obtained. COMPARISON: January 19, 2017 FINDINGS: The heart is large. Calcified atherosclerosis is noted in the aorta. Endotracheal and nasogastric t ubes are stable and appear in grossly appropriate location. Left-sided central line is I pleural sta ble. Central pulmonary vascular congestion and interstitial prominence in both lungs is identified. Left lower lobe infiltrates and small pleural effusion have increased. Small right pleural effusion with associated basilar atelectasis is observed and appears grossly stable. Osseous structures are intact. IMPRESSION: Cardiomegaly with calcified atherosclerosis in the aorta. Central pulmonary vascular congestion and interstitial prominence in both lungs. Interval increase in left lower lung infiltrates, combined with small pleural effusion. Stable small right pleural effusion with associated basilar atelectasis. Stable right pleural drain. RPTAT: AA .Jason Chacko MD, Date Time Electronically viewed and signed by .Jason Chacko MD, on 01/21/2017 11:31 .P/
[2017-01-21] MEDS: MIDAZOLAM (DRIP) 50 mg/50 mL 50 ML IV SCH (14:37)
--- NOTE | 2017-01-21 17:55 | CONS ---
Date/Time of Note Date/Time of Note DATE: 01/21/17 TIME: 17:55 Assessment/Plan Assessment/Plan Chief Complaint/Hosp Course CLL- ON TREATMENT post chemo TREATMENT - ON HOLD ANEMIA MONITOR BLOOD COUNT CLOSELY OBSERVE FOR BLEEDING AND HEMOLYSIS STOOL OB -P TRANSFUSE PRBC NEEDED Respiratory failure. Septic shock. Acute decompensated heart failure. Nonoliguric acute kidney injury with unknown baseline creatinine. Etiology secondary to septic acute kidney injury, acute tubular necrosis. Mineral bone disorder. Diabetes. Continue Accu-Cheks and sliding scale. Coronary artery disease. Pulmonary hypertension. Pleural effusions with history of PleurX catheter, currently nonfunctional. Problems: Consultation Date/Type/Reason Admit Date/Time Jan 10, 2017 at 23:15 Initial Consult Date 01/11/17 Type of Consultation: [facility] Referring Provider: AUBREE PALMA DO 24 HR Interval Summary Free Text/Dictation no new events Exam/Review of Systems Vital Signs Vitals Vital Signs Date Time Temp Pulse Resp B/P Pulse Ox O2 Delivery O2 Flow Rate FiO2 01/21/17 17:30 82 10 99/61 01/21/17 17:10 100 30 01/21/17 17:00 Mechanical Ventilator 01/21/17 16:00 98.1 Intake and Output 01/20/17 01/20/17 01/21/17 15:00 23:00 07:00 Intake Total 626.5 ml 484.0 ml 578.5 ml Output Total 1350 ml 500 ml 255 ml Balance -723.5 ml -16.0 ml 323.5 ml Exam HEENT: Head is normocephalic. NECK: Supple. HEART: Regular rate. LUNGS: Diminished breath sounds at the base. ABDOMEN: Soft, nontender to palpation. No rebound or guarding. EXTREMITIES: Negative for clubbing, cyanosis. No edema. DERMATOLOGIC: No rashes. MUSCULOSKELETAL: No joint effusion. NEUROLOGIC: No change in exam. Results Result Diagram: 01/21/17 0500 01/21/17 0400 Results 24 hrs Laboratory Tests Test 01/20/17 20:58 01/21/17 01:01 01/21/17 04:00 01/21/17 05:00 Bedside Glucose 131 125 Sodium Level 146 H Potassium Level 4.0 Chloride Level 106 Carbon Dioxide Level 32 H Anion Gap 12 Blood Urea Nitrogen 35 H Creatinine 1.15 H Glucose Level 130 Calcium Level 9.8 Phosphorus Level 3.8 Magnesium Level 2.1 Total Bilirubin 0.3 Direct Bilirubin 0.00 Indirect Bilirubin 0.3 Aspartate Amino Transf (AST/SGOT) 37 Alanine Aminotransferase (ALT/SGPT) 34 Alkaline Phosphatase 52 B-Type Natriuretic Peptide 4720 H Total Protein 6.3 Albumin 3.5 Globulin 2.80 Albumin/Globulin Ratio 1.25 White Blood Count 8.5 # Red Blood Count 3.40 L Hemoglobin 9.7 L Hematocrit 32.1 L Mean Corpuscular Volume 94.4 Mean Corpuscular Hemoglobin 28.5 L Mean Corpuscular Hemoglobin Concent 30.2 L Red Cell Distribution Width 16.0 H Platelet Count 209 Mean Platelet Volume 10.8 H Neutrophils % 28.2 L Lymphocytes % 43.8 Monocytes % 22.3 H Eosinophils % 0.6 Basophils % 0.2 Nucleated Red Blood Cells % 0.0 Neutrophils # 2.4 Lymphocytes # 3.7 H Monocytes # 1.9 H Eosinophils # 0.1 Basophils # 0.0 Nucleated Red Blood Cells # 0.0 Test 01/21/17 05:26 01/21/17 08:07 01/21/17 08:11 01/21/17 12:12 Bedside Glucose 137 155 150 Vancomycin Level Trough 19.7 Test 01/21/17 16:42 Bedside Glucose 155 Medications Medications Current Medications Propofol (Diprivan) 100 ml @ 2.045 mls/ hr Q12H IV Last administered on 08:16; Admin Dose 10.227 MLS/HR; Start 01/11/17 at 01:30 Enoxaparin Sodium 70 mg 70 mg Q12 SC Last administered on 01/21/17 08:13; Admin Dose 70 MG; Start 01/11/17 at 12:30 Meropenem/Sodium Chloride 50 ml @ 100 mls/hr Q12 IVPB Last administered on 08:20; Admin Dose 100 MLS/HR; Start 01/11/17 at 14:30 Phenylephrine HCl/ Dextrose (Baudilio-Syneph/D5W) 250 ml @ 10 mls/hr TITRATE IV Last administered on 01/17/17 00:00; Admin Dose 7.5 MLS/HR; Start 01/12/17 at 06:00 Mupirocin (Bactroban) 1 applic BID TOP Last administered on 01/21/17 08:09; Admin Dose 1 APPLIC; Start 01/12/17 at 13:00 Morphine Sulfate (morphine) 1 mg Q4H PRN IV PAIN Last administered on 08:07; Admin Dose 1 MG; Start 01/12/17 at 19:00 Diagnostic Test (Pha) (Accu-Chek) 1 ea 02 XX Last administered on 01/15/17 00: 50; Admin Dose 1 EA; Start 01/14/17 at 02:00 Insulin Aspart (Novolog Insulin Pen) NOVOLOG *MILD* ALGORI... Q4 SC Last administered on 01/21/17 16:45; Admin Dose 1 UNIT; Start 01/13/17 at 09:00 Miscellaneous Information 1 ea NOTE XX ; Start 01/13/17 at 07:00 Glucose (Glutose) 15 gm Q15M PRN PO DECREASED GLUCOSE; Start 01/13/17 at 07:00 Glucose (Glutose) 22.5 gm Q15M PRN PO DECREASED GLUCOSE; Start 01/13/17 at 07: 00 Dextrose (D50w Syringe) 25 ml Q15M PRN IV DECREASED GLUCOSE; Start 01/13/17 at 07:00 Dextrose (D50w Syringe) 50 ml Q15M PRN IV DECREASED GLUCOSE; Start 01/13/17 at 07:00 Glucagon (Glucagen) 1 mg Q15M PRN IM DECREASED GLUCOSE; Start 01/13/17 at 07:00 Glucose (Glutose) 15 gm Q15M PRN BUCCAL DECREASED GLUCOSE; Start 01/13/17 at 07 :00 Carvedilol 3.125 mg 3.125 mg BID NGT Last administered on 01/21/17 08:08; Admin Dose 3.125 MG; Start 01/13/17 at 09:00 Midazolam HCl 50 ml @ 1 mls/hr TITRATE IV Last administered on 01/21/17 14:37 ; Admin Dose 3 MLS/HR; Start 01/14/17 at 12:00 Fentanyl (Sublimaze) 100 ml @ 2.5 mls/hr TITRATE IV Last administered on 07:16; Admin Dose 2.5 MLS/HR; Start 01/14/17 at 13:00 Nystatin (Nystatin Powder) 1 applic BID TOP Last administered on 01/21/17 08: 08; Admin Dose 1 APPLIC; Start 01/14/17 at 15:00 Fluconazole (Diflucan) 100 mg DAILY PO Last administered on 01/21/17 08:08; Admin Dose 100 MG; Start 01/16/17 at 09:00 Furosemide (Lasix) 40 mg DAILY IV Last administered on 01/21/17 08:08; Admin Dose 40 MG; Start 01/18/17 at 09:00 Potassium Chloride (Potassium Chloride Pwd/Soln) 20 meq DAILY GTB Last administered on 01/21/17 08:08; Admin Dose 20 MEQ; Start 01/21/17 at 09:00 SE RAY MD Jan 21, 2017 17:55
[2017-01-22] VITALS (52 sets, daily range): BP systolic 86–118; BP diastolic 36–99; PULSE 73–94; RESP 0–25
[2017-01-22] MEDS: INSULIN ASPART [NOVOLOG] 3 ML PEN SC SCH ×6 (01:13→20:40)
[2017-01-22] MEDS: PROPOFOL 100 ML IV SCH ×2 (01:14→13:30)
[2017-01-22] MEDS: ACCU-CHEK XX SCH (02:00)
[2017-01-22 05:14] LABS: ABNORMAL IP MESSAGE 1; BASOPHILS % 0.4 % (0.0-2.0); EOSINOPHILS # 0.1 10^3/ul (0.0-0.5); HEMATOCRIT 31.9 % (37.0-47.0); HEMOGLOBIN 9.9 g/dl (12.0-16.0); LYMPHOCYTES % 39.8 % (15.0-51.0); MEAN CORPUSCULAR HEMOGLOBIN 29.6 pg (29.0-33.0); MEAN CORPUSCULAR VOLUME 95.5 fl (82.0-101.0); MEAN PLATELET VOLUME 10.8 fl (7.4-10.4); NEUTROPHILS % 26.5 % (39.0-77.0); PLATELET COUNT 191 10^3/UL (140-415); RED BLOOD COUNT 3.34 10^6/ul (4.20-5.40); RED CELL DISTRIBUTION WIDTH 15.7 % (11.5-14.5); WHITE BLOOD COUNT 7.6 10^3/ul (4.8-10.8)
[2017-01-22 05:35] LABS: CALCIUM 9.6 mg/dl (8.4-10.2); CREATININE 1.14 mg/dl (0.44-1.00); MAGNESIUM 2.1 mg/dl (1.7-2.5); PHOSPHORUS 4.3 mg/dl (2.5-4.9); POTASSIUM 3.8 mmol/L (3.5-5.1)
[2017-01-22 05:39] LABS: MONOCYTES % 26.4 % (0.0-11.0); POSITIVE DIFF @See below
[2017-01-22] MEDS: FLUCONAZOLE 100 MG TAB PO SCH (08:57)
[2017-01-22] MEDS: POTASSIUM CHLORIDE 20 MEQ POWDER FOR ORAL SOLN GTB SCH (08:58)
[2017-01-22] MEDS: MEROPENEM 500MG/50 ML (PMX) 50 ML IVPB SCH ×2 (08:58→20:33)
[2017-01-22] MEDS: FUROSEMIDE 40 MG INJ IV SCH (08:59)
--- NOTE | 2017-01-22 09:00 | CONS ---
Date/Time of Note Date/Time of Note DATE: 01/22/17 TIME: 08:59 Consult Date/Type/Reason Admit Date/Time Jan 10, 2017 at 23:15 Initial Consult Date 01/10/17 Type of Consultation: nephrology Ordering Provider: AUBREE PALMA DO Subjective pt. seen and examined on vent in icu. d/w dr. shahbaz avalos uop. f/u cxr reviewed. Objective Vital Signs Date Time Temp Pulse Resp B/P Pulse Ox O2 Delivery O2 Flow Rate FiO2 01/22/17 08:30 78 14 109/58 01/22/17 08:00 100 Mechanical Ventilator 01/22/17 07:00 98.4 01/22/17 05:27 30 Intake and Output 01/21/17 01/21/17 01/22/17 15:00 23:00 07:00 Intake Total 749.0 ml 659.5 ml 387.0 ml Output Total 795 ml 495 ml 335 ml Balance -46.0 ml 164.5 ml 52.0 ml Exam Exam HEENT exam; supple neck, positive JVD. No lymphadenopathy. Midline trachea. No thyromegaly. Orally intubated. Patient edentulous. Chest exam; diminished but clear breath sounds. S1-S2 audible, no murmurs. Right-sided Pleurx catheter in place. Abdomen exam; soft, nontender tender. No organomegaly. Bowel sounds audible. Extremity exam; no peripheral edema. RESERVATION MANAGER exam; patient is awake and follows very simple commands like mouth opening. Results/Medications Result Diagram: 01/22/17 0415 01/22/17 0415 Results 24 hrs Laboratory Tests Test 01/21/17 12:12 01/21/17 16:42 01/21/17 21:27 01/22/17 01:09 Bedside Glucose 150 155 149 156 Test 01/22/17 02:11 01/22/17 04:15 01/22/17 05:34 Bedside Glucose 147 141 White Blood Count 7.6 Red Blood Count 3.34 L Hemoglobin 9.9 L Hematocrit 31.9 L Mean Corpuscular Volume 95.5 Mean Corpuscular Hemoglobin 29.6 Mean Corpuscular Hemoglobin Concent 31.0 L Red Cell Distribution Width 15.7 H Platelet Count 191 Mean Platelet Volume 10.8 H Neutrophils % 26.5 L Lymphocytes % 39.8 Monocytes % 26.4 H Eosinophils % 1.0 Basophils % 0.4 Nucleated Red Blood Cells % 0.0 Neutrophils # 2.0 Lymphocytes # 3.0 H Monocytes # 2.0 H Eosinophils # 0.1 Basophils # 0.0 Nucleated Red Blood Cells # 0.0 Sodium Level 143 Potassium Level 3.8 Chloride Level 104 Carbon Dioxide Level 32 H Anion Gap 11 Blood Urea Nitrogen 42 H Creatinine 1.14 H Glucose Level 137 Calcium Level 9.6 Phosphorus Level 4.3 Magnesium Level 2.1 Medications Current Medications Propofol (Diprivan) 100 ml @ 2.045 mls/ hr Q12H IV Last administered on 08:16; Admin Dose 10.227 MLS/HR; Start 01/11/17 at 01:30 Enoxaparin Sodium 70 mg 70 mg Q12 SC Last administered on 01/21/17 21:32; Admin Dose 70 MG; Start 01/11/17 at 12:30 Meropenem/Sodium Chloride 50 ml @ 100 mls/hr Q12 IVPB Last administered on 21:28; Admin Dose 100 MLS/HR; Start 01/11/17 at 14:30 Phenylephrine HCl/ Dextrose (Baudilio-Syneph/D5W) 250 ml @ 10 mls/hr TITRATE IV Last administered on 01/17/17 00:00; Admin Dose 7.5 MLS/HR; Start 01/12/17 at 06:00 Mupirocin (Bactroban) 1 applic BID TOP Last administered on 01/21/17 21:33; Admin Dose 1 APPLIC; Start 01/12/17 at 13:00 Morphine Sulfate (morphine) 1 mg Q4H PRN IV PAIN Last administered on 08:07; Admin Dose 1 MG; Start 01/12/17 at 19:00 Diagnostic Test (Pha) (Accu-Chek) 1 ea 02 XX Last administered on 01/22/17 02: 00; Admin Dose 1 EA; Start 01/14/17 at 02:00 Insulin Aspart (Novolog Insulin Pen) NOVOLOG *MILD* ALGORI... Q4 SC Last administered on 01/22/17 05:38; Admin Dose 1 UNIT; Start 01/13/17 at 09:00 Miscellaneous Information 1 ea NOTE XX ; Start 01/13/17 at 07:00 Glucose (Glutose) 15 gm Q15M PRN PO DECREASED GLUCOSE; Start 01/13/17 at 07:00 Glucose (Glutose) 22.5 gm Q15M PRN PO DECREASED GLUCOSE; Start 01/13/17 at 07: 00 Dextrose (D50w Syringe) 25 ml Q15M PRN IV DECREASED GLUCOSE; Start 01/13/17 at 07:00 Dextrose (D50w Syringe) 50 ml Q15M PRN IV DECREASED GLUCOSE; Start 01/13/17 at 07:00 Glucagon (Glucagen) 1 mg Q15M PRN IM DECREASED GLUCOSE; Start 01/13/17 at 07:00 Glucose (Glutose) 15 gm Q15M PRN BUCCAL DECREASED GLUCOSE; Start 01/13/17 at 07 :00 Carvedilol 3.125 mg 3.125 mg BID NGT Last administered on 01/21/17 08:08; Admin Dose 3.125 MG; Start 01/13/17 at 09:00 Midazolam HCl 50 ml @ 1 mls/hr TITRATE IV Last administered on 01/21/17 14:37 ; Admin Dose 3 MLS/HR; Start 01/14/17 at 12:00 Fentanyl (Sublimaze) 100 ml @ 2.5 mls/hr TITRATE IV Last administered on 07:16; Admin Dose 2.5 MLS/HR; Start 01/14/17 at 13:00 Nystatin (Nystatin Powder) 1 applic BID TOP Last administered on 01/21/17 21: 32; Admin Dose 1 APPLIC; Start 01/14/17 at 15:00 Fluconazole (Diflucan) 100 mg DAILY PO Last administered on 01/21/17 08:08; Admin Dose 100 MG; Start 01/16/17 at 09:00 Furosemide (Lasix) 40 mg DAILY IV Last administered on 01/21/17 08:08; Admin Dose 40 MG; Start 01/18/17 at 09:00 Potassium Chloride (Potassium Chloride Pwd/Soln) 20 meq DAILY GTB Last administered on 01/21/17 08:08; Admin Dose 20 MEQ; Start 01/21/17 at 09:00 Assessment/Plan Chief Complaint/Hosp Course 1. Ventilatory-dependent respiratory failure. Vent settings and ABGs reviewed. The patient has failed multiple weaning attempts. May require trach. We will defer to Pulmonary. 2. Sepsis status post shock. Currently off pressors. Continue current antibiotic regimen. 3. Decompensated heart failure. Continue current medical management. Follow up with Cardiology. Continue diuretic therapy. 4. Hyponatremia. Continue free water flushes. We will increase to 200 mL every 4 hours. 5. Nonoliguric acute kidney injury with unknown baseline creatinine. Etiology secondary to hemodynamic sepsis. Renal function is improving. Continue current treatment plan. 6. Anemia. Monitor H and H levels. Follow up with Hematology. 7. History of chronic lymphocytic leukemia. Continue to monitor. Follow up with Hematology. 8. Mineral bone disorder. Monitor calcium and phosphorus levels. 9. Diabetes. Continue Accu-Cheks and insulin sliding scale. 10. Coronary artery disease. Continue medical management. 11. Pulmonary hypertension. 12. History of pleural effusion with PleurX catheter. 13. Lower extremity deep vein thrombosis. Continue medical management. Follow up with Hematology. 14. Acute encephalopathy. Etiology is toxic metabolic. 15. Gastrointestinal and deep venous thrombosis prophylaxis. Problems: PHILLIP WONG MD Jan 22, 2017 09:00
[2017-01-22] MEDS: ENOXAPARIN 80 MG/0.8 ML SYG SC SCH ×2 (09:30→20:39)
[2017-01-22] MEDS: BALSAM PERU/CASTOR OIL 60 GM TUBE TOP SCH ×2 (09:31→20:34)
[2017-01-22] MEDS: MUPIROCIN 2% 22 GM OINT TOP SCH ×2 (09:31→20:33)
[2017-01-22] MEDS: NYSTATIN 30 GM POWDER BTL TOP SCH ×2 (09:31→20:34)
--- NOTE | 2017-01-22 09:51 | CONS ---
Date/Time of Note Date/Time of Note DATE: 01/22/17 TIME: 09:50 Assessment/Plan Assessment/Plan Chief Complaint/Hosp Course ID PROGRESS NOTE TOTAL ABX DAY # CURRENT ABX=> Merrem, Diflucan, s/p Vanco IV (DC'd 01/21) 24H INTERVAL SUMMARY * Noncommunicative on the Vent * MICROBIOLOGY: Urine and sputum culture grew Dominga albicans. * DIAGNOSTICS: Chest x-ray revealed increased left lower lobe infiltrate combined with small pleural effusion. * 01/22/17 0415 01/22/17 0415 GENERAL: VSS, NAD, orally intubated, responsive HEENT: ETT/OGT -> Secure NECK: Trach midline, full ROM CHEST: Rise symmetrical without dyspnea on observation ABDOMEN: Soft, NT EXTREMITIES: Warm,(+) moves extremities, (+)Generalized edema SKIN: No diaphoresis, no rash ID ASSESSMENT: 81 yo F admit with: 1. Status post septic shock. 2. Acute respiratory failure, status post re-intubated. 3. Pneumonia possibly aspiration type. 4. Chronic lymphocytic leukemia. 5. Recurrent pleural effusions, history of right PleurX catheter placement. * Elevated BNP 6. Diabetes. 7. Atrial fibrillation. 8. Dominga albicans urinary tract infection. 9. History of deep vein thrombosis. 10. Renal insufficiency (+)MRSA Nares -> Bactroban INVASIVES: ETT, NGT, R-Pleur-X, L-IJ TLC, FC ABX ALLERGY: Ceftriaxone TOTAL ABX DAY # CURRENT ABX=> Merrem, Diflucan, s/p Vanco IV (DC'd 01/21) ID PLAN 1. Continue current ABX, off Vanco IV due to renal insufficiency 2. Allergy to Ceftriaxone = justification for Merrem, may consider de-escalate to Quinolone future . Problems: Consultation Date/Type/Reason Admit Date/Time Jan 10, 2017 at 23:15 Initial Consult Date 01/10/17 Type of Consultation: ID Referring Provider: AUBREE PALAM DO Exam/Review of Systems Vital Signs Vitals Vital Signs Date Time Temp Pulse Resp B/P Pulse Ox O2 Delivery O2 Flow Rate FiO2 01/22/17 09:30 87 16 94/56 100 Mechanical Ventilator 01/22/17 07:00 98.4 01/22/17 05:27 30 Intake and Output 01/21/17 01/21/17 01/22/17 15:00 23:00 07:00 Intake Total 749.0 ml 659.5 ml 387.0 ml Output Total 795 ml 495 ml 335 ml Balance -46.0 ml 164.5 ml 52.0 ml Results Result Diagram: 01/22/17 0415 01/22/17 0415 Results 24 hrs Laboratory Tests Test 01/21/17 12:12 01/21/17 16:42 01/21/17 21:27 01/22/17 01:09 Bedside Glucose 150 155 149 156 Test 01/22/17 02:11 01/22/17 04:15 01/22/17 05:34 01/22/17 09:20 Bedside Glucose 147 141 175 White Blood Count 7.6 Red Blood Count 3.34 L Hemoglobin 9.9 L Hematocrit 31.9 L Mean Corpuscular Volume 95.5 Mean Corpuscular Hemoglobin 29.6 Mean Corpuscular Hemoglobin Concent 31.0 L Red Cell Distribution Width 15.7 H Platelet Count 191 Mean Platelet Volume 10.8 H Neutrophils % 26.5 L Lymphocytes % 39.8 Monocytes % 26.4 H Eosinophils % 1.0 Basophils % 0.4 Nucleated Red Blood Cells % 0.0 Neutrophils # 2.0 Lymphocytes # 3.0 H Monocytes # 2.0 H Eosinophils # 0.1 Basophils # 0.0 Nucleated Red Blood Cells # 0.0 Sodium Level 143 Potassium Level 3.8 Chloride Level 104 Carbon Dioxide Level 32 H Anion Gap 11 Blood Urea Nitrogen 42 H Creatinine 1.14 H Glucose Level 137 Calcium Level 9.6 Phosphorus Level 4.3 Magnesium Level 2.1 Medications Medications Current Medications Propofol (Diprivan) 100 ml @ 2.045 mls/ hr Q12H IV Last administered on 08:16; Admin Dose 10.227 MLS/HR; Start 01/11/17 at 01:30 Enoxaparin Sodium 70 mg 70 mg Q12 SC Last administered on 01/22/17 09:30; Admin Dose 70 MG; Start 01/11/17 at 12:30 Meropenem/Sodium Chloride 50 ml @ 100 mls/hr Q12 IVPB Last administered on 08:58; Admin Dose 100 MLS/HR; Start 01/11/17 at 14:30 Phenylephrine HCl/ Dextrose (Baudilio-Syneph/D5W) 250 ml @ 10 mls/hr TITRATE IV Last administered on 01/17/17 00:00; Admin Dose 7.5 MLS/HR; Start 01/12/17 at 06:00 Mupirocin (Bactroban) 1 applic BID TOP Last administered on 01/22/17 09:31; Admin Dose 1 APPLIC; Start 01/12/17 at 13:00 Morphine Sulfate (morphine) 1 mg Q4H PRN IV PAIN Last administered on 08:07; Admin Dose 1 MG; Start 01/12/17 at 19:00 Diagnostic Test (Pha) (Accu-Chek) 1 ea 02 XX Last administered on 01/22/17 02: 00; Admin Dose 1 EA; Start 01/14/17 at 02:00 Insulin Aspart (Novolog Insulin Pen) NOVOLOG *MILD* ALGORI... Q4 SC Last administered on 01/22/17 09:30; Admin Dose 1 UNIT; Start 01/13/17 at 09:00 Miscellaneous Information 1 ea NOTE XX ; Start 01/13/17 at 07:00 Glucose (Glutose) 15 gm Q15M PRN PO DECREASED GLUCOSE; Start 01/13/17 at 07:00 Glucose (Glutose) 22.5 gm Q15M PRN PO DECREASED GLUCOSE; Start 01/13/17 at 07: 00 Dextrose (D50w Syringe) 25 ml Q15M PRN IV DECREASED GLUCOSE; Start 01/13/17 at 07:00 Dextrose (D50w Syringe) 50 ml Q15M PRN IV DECREASED GLUCOSE; Start 01/13/17 at 07:00 Glucagon (Glucagen) 1 mg Q15M PRN IM DECREASED GLUCOSE; Start 01/13/17 at 07:00 Glucose (Glutose) 15 gm Q15M PRN BUCCAL DECREASED GLUCOSE; Start 01/13/17 at 07 :00 Carvedilol 3.125 mg 3.125 mg BID NGT Last administered on 01/21/17 08:08; Admin Dose 3.125 MG; Start 01/13/17 at 09:00 Midazolam HCl 50 ml @ 1 mls/hr TITRATE IV Last administered on 01/21/17 14:37 ; Admin Dose 3 MLS/HR; Start 01/14/17 at 12:00 Fentanyl (Sublimaze) 100 ml @ 2.5 mls/hr TITRATE IV Last administered on 07:16; Admin Dose 2.5 MLS/HR; Start 01/14/17 at 13:00 Nystatin (Nystatin Powder) 1 applic BID TOP Last administered on 01/22/17 09: 31; Admin Dose 1 APPLIC; Start 01/14/17 at 15:00 Fluconazole (Diflucan) 100 mg DAILY PO Last administered on 01/22/17 08:57; Admin Dose 100 MG; Start 01/16/17 at 09:00 Furosemide (Lasix) 40 mg DAILY IV Last administered on 01/22/17 08:59; Admin Dose 40 MG; Start 01/18/17 at 09:00 Potassium Chloride (Potassium Chloride Pwd/Soln) 20 meq DAILY GTB Last administered on 01/22/17 08:58; Admin Dose 20 MEQ; Start 01/21/17 at 09:00 GINO HALL NP Jan 22, 2017 09:51
--- NOTE | 2017-01-22 10:26 | PN ---
DATE: 01/21/2017 SUBJECTIVE DATA: No acute changes. Patient looks comfortable. No fevers. LABORATORY AND DIAGNOSTIC DATA: WBC 8.5, H and H 9.7 and 32.1, platelets 209,000, neutrophils 28.2. BUN 35, creatinine 1.15. MICROBIOLOGY: Urine and sputum culture grew Dominga albicans. ANTIMICROBIALS: Patient is on fluconazole, vancomycin and meropenem. INDWELLINGS: Endotracheal tube, NG tube, right PleurX, left IJ triple-lumen catheters. DIAGNOSTICS: Chest x-ray revealed increased left lower lobe infiltrate combined with small pleural effusion. PHYSICAL EXAMINATION: GENERAL: This is a chronically ill-appearing, well-developed elderly woman who is intubated, sedated, and in no distress. HEENT: Head atraumatic, normocephalic. Sclerae anicteric. Buccal mucosa dry. NECK: Supple. CHEST: Rise symmetrical. Breath sounds diminished at the bases. HEART: S1, S2. ABDOMEN: Soft, bowel sounds present. EXTREMITIES: Without cyanosis. ASSESSMENT: 1. Status post septic shock. 2. Acute respiratory failure, status post re-intubated. 3. Pneumonia possibly aspiration type. 4. Chronic lymphocytic leukemia. 5. Recurrent pleural effusions, history of right PleurX catheter placement. 6. Diabetes. 7. Atrial fibrillation. 8. Dominga albicans urinary tract infection. 9. Methicillin-resistant Staphylococcus aureus nares colonization. 10. History of deep vein thrombosis. PLAN: Patient remains stable. We are going to discontinue vancomycin given worsening renal function. Continue meropenem for now. Continue management as per primary team. Family to decide regarding tracheostomy placement. Dictated By: Elvin Owusu NP /linette/naren /Document#: [id number]
--- NOTE | 2017-01-22 11:49 | CONS ---
Date/Time of Note Date/Time of Note DATE: 01/22/17 TIME: 11:46 Consult Date/Type/Reason Admit Date/Time Jan 10, 2017 at 23:15 Initial Consult Date 01/10/17 Type of Consultation: Pulm/CCM Ordering Provider: AUBREE PALMA DO Subjective No events. Sedated on MV. Objective Vital Signs Date Time Temp Pulse Resp B/P Pulse Ox O2 Delivery O2 Flow Rate FiO2 01/22/17 10:30 90 16 104/54 100 Mechanical Ventilator 01/22/17 08:00 30 01/22/17 07:00 98.4 Intake and Output 01/21/17 01/21/17 01/22/17 15:00 23:00 07:00 Intake Total 749.0 ml 659.5 ml 387.0 ml Output Total 795 ml 495 ml 335 ml Balance -46.0 ml 164.5 ml 52.0 ml Exam HEENT: Neck supple; no JVD; no LAD; + ET tube CVS: Irreg irreg, S1 and S2 CHEST: Decreased BS B/L ABD: Soft, NT, + BS EXT: No c/c; + edema Results/Medications Result Diagram: 01/22/17 0415 01/22/17 0415 Results 24 hrs Laboratory Tests Test 01/21/17 12:12 01/21/17 16:42 01/21/17 21:27 01/22/17 01:09 Bedside Glucose 150 155 149 156 Test 01/22/17 02:11 01/22/17 04:15 01/22/17 05:34 01/22/17 09:20 Bedside Glucose 147 141 175 White Blood Count 7.6 Red Blood Count 3.34 L Hemoglobin 9.9 L Hematocrit 31.9 L Mean Corpuscular Volume 95.5 Mean Corpuscular Hemoglobin 29.6 Mean Corpuscular Hemoglobin Concent 31.0 L Red Cell Distribution Width 15.7 H Platelet Count 191 Mean Platelet Volume 10.8 H Neutrophils % 26.5 L Lymphocytes % 39.8 Monocytes % 26.4 H Eosinophils % 1.0 Basophils % 0.4 Nucleated Red Blood Cells % 0.0 Neutrophils # 2.0 Lymphocytes # 3.0 H Monocytes # 2.0 H Eosinophils # 0.1 Basophils # 0.0 Nucleated Red Blood Cells # 0.0 Sodium Level 143 Potassium Level 3.8 Chloride Level 104 Carbon Dioxide Level 32 H Anion Gap 11 Blood Urea Nitrogen 42 H Creatinine 1.14 H Glucose Level 137 Calcium Level 9.6 Phosphorus Level 4.3 Magnesium Level 2.1 Medications Current Medications Propofol (Diprivan) 100 ml @ 2.045 mls/ hr Q12H IV Last administered on 08:16; Admin Dose 10.227 MLS/HR; Start 01/11/17 at 01:30 Enoxaparin Sodium 70 mg 70 mg Q12 SC Last administered on 01/22/17 09:30; Admin Dose 70 MG; Start 01/11/17 at 12:30 Meropenem/Sodium Chloride 50 ml @ 100 mls/hr Q12 IVPB Last administered on 08:58; Admin Dose 100 MLS/HR; Start 01/11/17 at 14:30 Phenylephrine HCl/ Dextrose (Baudilio-Syneph/D5W) 250 ml @ 10 mls/hr TITRATE IV Last administered on 01/17/17 00:00; Admin Dose 7.5 MLS/HR; Start 01/12/17 at 06:00 Mupirocin (Bactroban) 1 applic BID TOP Last administered on 01/22/17 09:31; Admin Dose 1 APPLIC; Start 01/12/17 at 13:00 Morphine Sulfate (morphine) 1 mg Q4H PRN IV PAIN Last administered on 08:07; Admin Dose 1 MG; Start 01/12/17 at 19:00 Diagnostic Test (Pha) (Accu-Chek) 1 ea 02 XX Last administered on 01/22/17 02: 00; Admin Dose 1 EA; Start 01/14/17 at 02:00 Insulin Aspart (Novolog Insulin Pen) NOVOLOG *MILD* ALGORI... Q4 SC Last administered on 01/22/17 09:30; Admin Dose 1 UNIT; Start 01/13/17 at 09:00 Miscellaneous Information 1 ea NOTE XX ; Start 01/13/17 at 07:00 Glucose (Glutose) 15 gm Q15M PRN PO DECREASED GLUCOSE; Start 01/13/17 at 07:00 Glucose (Glutose) 22.5 gm Q15M PRN PO DECREASED GLUCOSE; Start 01/13/17 at 07: 00 Dextrose (D50w Syringe) 25 ml Q15M PRN IV DECREASED GLUCOSE; Start 01/13/17 at 07:00 Dextrose (D50w Syringe) 50 ml Q15M PRN IV DECREASED GLUCOSE; Start 01/13/17 at 07:00 Glucagon (Glucagen) 1 mg Q15M PRN IM DECREASED GLUCOSE; Start 01/13/17 at 07:00 Glucose (Glutose) 15 gm Q15M PRN BUCCAL DECREASED GLUCOSE; Start 01/13/17 at 07 :00 Carvedilol 3.125 mg 3.125 mg BID NGT Last administered on 01/21/17 08:08; Admin Dose 3.125 MG; Start 01/13/17 at 09:00 Midazolam HCl 50 ml @ 1 mls/hr TITRATE IV Last administered on 01/21/17 14:37 ; Admin Dose 3 MLS/HR; Start 01/14/17 at 12:00 Fentanyl (Sublimaze) 100 ml @ 2.5 mls/hr TITRATE IV Last administered on 07:16; Admin Dose 2.5 MLS/HR; Start 01/14/17 at 13:00 Nystatin (Nystatin Powder) 1 applic BID TOP Last administered on 01/22/17 09: 31; Admin Dose 1 APPLIC; Start 01/14/17 at 15:00 Fluconazole (Diflucan) 100 mg DAILY PO Last administered on 01/22/17 08:57; Admin Dose 100 MG; Start 01/16/17 at 09:00 Furosemide (Lasix) 40 mg DAILY IV Last administered on 01/22/17 08:59; Admin Dose 40 MG; Start 01/18/17 at 09:00 Potassium Chloride (Potassium Chloride Pwd/Soln) 20 meq DAILY GTB Last administered on 01/22/17 08:58; Admin Dose 20 MEQ; Start 01/21/17 at 09:00 Assessment/Plan Additional Assessment/Plan IMP: 1. Status post septic shock. 2. Acute respiratory failure, status post re-intubation 3. Pneumonia 4. Chronic lymphocytic leukemia 5. Recurrent pleural effusions, history of right PleurX catheter placement 6. Atrial fibrillation. RECS: 1. Vent support 2. Will try weaning as tolerated, however, severe deconditioning is limiting factor 3. Family to discuss goals of care 4. Am CXR/ABG 35 min cc time MELISSA MARK MD Jan 22, 2017 11:49
[2017-01-22] MEDS: FENTAnyl (DRIP) 1000 mcg/100mL 100 ML IV SCH (13:16)
--- NOTE | 2017-01-22 16:54 | CONS ---
Date/Time of Note Date/Time of Note DATE: 01/22/17 TIME: 16:53 Assessment/Plan Assessment/Plan Chief Complaint/Hosp Course CLL- ON TREATMENT post chemo TREATMENT - ON HOLD ANEMIA MONITOR BLOOD COUNT CLOSELY OBSERVE FOR BLEEDING AND HEMOLYSIS STOOL OB -P TRANSFUSE PRBC NEEDED Respiratory failure. Septic shock. Acute decompensated heart failure. Nonoliguric acute kidney injury with unknown baseline creatinine. Etiology secondary to septic acute kidney injury, acute tubular necrosis. Mineral bone disorder. Diabetes. Continue Accu-Cheks and sliding scale. Coronary artery disease. Pulmonary hypertension. Pleural effusions with history of PleurX catheter, currently nonfunctional. Problems: Consultation Date/Type/Reason Admit Date/Time Jan 10, 2017 at 23:15 Initial Consult Date 01/11/17 Type of Consultation: [facility] Referring Provider: AUBREE PALMA DO 24 HR Interval Summary Free Text/Dictation all noted no new events Exam/Review of Systems Vital Signs Vitals Vital Signs Date Time Temp Pulse Resp B/P Pulse Ox O2 Delivery O2 Flow Rate FiO2 01/22/17 16:00 86 23 112/99 01/22/17 15:30 100 Mechanical Ventilator 01/22/17 13:45 30 01/22/17 13:00 98.8 Intake and Output 01/21/17 01/21/17 01/22/17 15:00 23:00 07:00 Intake Total 749.0 ml 659.5 ml 387.0 ml Output Total 795 ml 495 ml 335 ml Balance -46.0 ml 164.5 ml 52.0 ml Exam HEENT: Head is normocephalic. NECK: Supple. HEART: Regular rate. LUNGS: Diminished breath sounds at the base. ABDOMEN: Soft, nontender to palpation. No rebound or guarding. EXTREMITIES: Negative for clubbing, cyanosis. No edema. DERMATOLOGIC: No rashes. MUSCULOSKELETAL: No joint effusion. NEUROLOGIC: No change in exam. Results Result Diagram: 01/22/17 0415 01/22/17 0415 Results 24 hrs Laboratory Tests Test 01/21/17 21:27 01/22/17 01:09 01/22/17 02:11 01/22/17 04:15 Bedside Glucose 149 156 147 White Blood Count 7.6 Red Blood Count 3.34 L Hemoglobin 9.9 L Hematocrit 31.9 L Mean Corpuscular Volume 95.5 Mean Corpuscular Hemoglobin 29.6 Mean Corpuscular Hemoglobin Concent 31.0 L Red Cell Distribution Width 15.7 H Platelet Count 191 Mean Platelet Volume 10.8 H Neutrophils % 26.5 L Lymphocytes % 39.8 Monocytes % 26.4 H Eosinophils % 1.0 Basophils % 0.4 Nucleated Red Blood Cells % 0.0 Neutrophils # 2.0 Lymphocytes # 3.0 H Monocytes # 2.0 H Eosinophils # 0.1 Basophils # 0.0 Nucleated Red Blood Cells # 0.0 Sodium Level 143 Potassium Level 3.8 Chloride Level 104 Carbon Dioxide Level 32 H Anion Gap 11 Blood Urea Nitrogen 42 H Creatinine 1.14 H Glucose Level 137 Calcium Level 9.6 Phosphorus Level 4.3 Magnesium Level 2.1 Test 01/22/17 05:34 01/22/17 09:20 01/22/17 13:06 01/22/17 16:34 Bedside Glucose 141 175 140 144 Medications Medications Current Medications Propofol (Diprivan) 100 ml @ 2.045 mls/ hr Q12H IV Last administered on 08:16; Admin Dose 10.227 MLS/HR; Start 01/11/17 at 01:30 Enoxaparin Sodium 70 mg 70 mg Q12 SC Last administered on 01/22/17 09:30; Admin Dose 70 MG; Start 01/11/17 at 12:30 Meropenem/Sodium Chloride 50 ml @ 100 mls/hr Q12 IVPB Last administered on 08:58; Admin Dose 100 MLS/HR; Start 01/11/17 at 14:30 Phenylephrine HCl/ Dextrose (Baudilio-Syneph/D5W) 250 ml @ 10 mls/hr TITRATE IV Last administered on 01/17/17 00:00; Admin Dose 7.5 MLS/HR; Start 01/12/17 at 06:00 Mupirocin (Bactroban) 1 applic BID TOP Last administered on 01/22/17 09:31; Admin Dose 1 APPLIC; Start 01/12/17 at 13:00 Morphine Sulfate (morphine) 1 mg Q4H PRN IV PAIN Last administered on 08:07; Admin Dose 1 MG; Start 01/12/17 at 19:00 Diagnostic Test (Pha) (Accu-Chek) 1 ea 02 XX Last administered on 01/22/17 02: 00; Admin Dose 1 EA; Start 01/14/17 at 02:00 Insulin Aspart (Novolog Insulin Pen) NOVOLOG *MILD* ALGORI... Q4 SC Last administered on 01/22/17 16:44; Admin Dose 1 UNIT; Start 01/13/17 at 09:00 Miscellaneous Information 1 ea NOTE XX ; Start 01/13/17 at 07:00 Glucose (Glutose) 15 gm Q15M PRN PO DECREASED GLUCOSE; Start 01/13/17 at 07:00 Glucose (Glutose) 22.5 gm Q15M PRN PO DECREASED GLUCOSE; Start 01/13/17 at 07: 00 Dextrose (D50w Syringe) 25 ml Q15M PRN IV DECREASED GLUCOSE; Start 01/13/17 at 07:00 Dextrose (D50w Syringe) 50 ml Q15M PRN IV DECREASED GLUCOSE; Start 01/13/17 at 07:00 Glucagon (Glucagen) 1 mg Q15M PRN IM DECREASED GLUCOSE; Start 01/13/17 at 07:00 Glucose (Glutose) 15 gm Q15M PRN BUCCAL DECREASED GLUCOSE; Start 01/13/17 at 07 :00 Carvedilol 3.125 mg 3.125 mg BID NGT Last administered on 01/21/17 08:08; Admin Dose 3.125 MG; Start 01/13/17 at 09:00 Midazolam HCl 50 ml @ 1 mls/hr TITRATE IV Last administered on 01/21/17 14:37 ; Admin Dose 3 MLS/HR; Start 01/14/17 at 12:00 Fentanyl (Sublimaze) 100 ml @ 2.5 mls/hr TITRATE IV Last administered on 13:16; Admin Dose 5 MLS/HR; Start 01/14/17 at 13:00 Nystatin (Nystatin Powder) 1 applic BID TOP Last administered on 01/22/17 09: 31; Admin Dose 1 APPLIC; Start 01/14/17 at 15:00 Fluconazole (Diflucan) 100 mg DAILY PO Last administered on 01/22/17 08:57; Admin Dose 100 MG; Start 01/16/17 at 09:00 Furosemide (Lasix) 40 mg DAILY IV Last administered on 01/22/17 08:59; Admin Dose 40 MG; Start 01/18/17 at 09:00 Potassium Chloride (Potassium Chloride Pwd/Soln) 20 meq DAILY GTB Last administered on 01/22/17 08:58; Admin Dose 20 MEQ; Start 01/21/17 at 09:00 SE RAY MD Jan 22, 2017 16:54
[2017-01-23] VITALS (36 sets, daily range): BP systolic 85–119; BP diastolic 51–74; PULSE 73–104; RESP 10–29
[2017-01-23] MEDS: INSULIN ASPART [NOVOLOG] 3 ML PEN SC SCH ×6 (01:00→20:28)
[2017-01-23] MEDS: PROPOFOL 100 ML IV SCH ×2 (01:09→13:30)
[2017-01-23] MEDS: ACCU-CHEK XX SCH (01:09)
[2017-01-23] MEDS: FENTAnyl (DRIP) 1000 mcg/100mL 100 ML IV SCH ×2 (04:01→21:51)
[2017-01-23 04:43] LABS: AADO2 Arterial 62.5 mmHg (7.0-24.0); Allen Test ACCEPTAB; Arterial Base Excess 5.1 mmol/L (-3.0-3); Arterial COHb 0.3 % (0.0-3.0); Arterial Fraction of Oxyhgb 97.2 % (93.0-99.0); Arterial HCO3 28.2 mmol/L (22.0-26.0); Arterial MetHb 0.2 % (0.0-1.5); Arterial Total Hemglobin 10.1 g/dl (12.0-18.0); MODE VENT - AC
[2017-01-23 06:17] LABS: BASOPHILS % 0.1 % (0.0-2.0); EOSINOPHILS # 0.1 10^3/ul (0.0-0.5); EOSINOPHILS % 0.6 % (0.0-7.0); HEMATOCRIT 31.8 % (37.0-47.0); HEMOGLOBIN 9.6 g/dl (12.0-16.0); LYMPHOCYTES # 4.2 10^3/ul (0.8-2.9); MEAN CORPUSCULAR HEMOGLOBIN 28.7 pg (29.0-33.0); MEAN CORPUSCULAR HGB CONC 30.2 g/dl (32.0-37.0); MEAN CORPUSCULAR VOLUME 94.9 fl (82.0-101.0); MEAN PLATELET VOLUME 10.8 fl (7.4-10.4); MONOCYTE # 1.5 10^3/ul (0.3-0.9); MONOCYTES % 17.9 % (0.0-11.0); NEUTROPHIL # 2.1 10^3/ul (1.6-7.5); NEUTROPHILS % 25.7 % (39.0-77.0); PLATELET COUNT 188 10^3/UL (140-415); RED BLOOD COUNT 3.35 10^6/ul (4.20-5.40); RED CELL DISTRIBUTION WIDTH 15.7 % (11.5-14.5); WHITE BLOOD COUNT 8.3 10^3/ul (4.8-10.8)
[2017-01-23 06:33] LABS: CALCIUM 9.5 mg/dl (8.4-10.2); CREATININE 1.07 mg/dl (0.44-1.00); POTASSIUM 3.7 mmol/L (3.5-5.1)
[2017-01-23] MEDS: POTASSIUM CHLORIDE 20 MEQ POWDER FOR ORAL SOLN GTB SCH (08:24)
[2017-01-23] MEDS: NYSTATIN 30 GM POWDER BTL TOP SCH ×2 (08:25→20:29)
[2017-01-23] MEDS: MUPIROCIN 2% 22 GM OINT TOP SCH ×2 (08:25→20:29)
[2017-01-23] MEDS: FLUCONAZOLE 100 MG TAB PO SCH (08:25)
[2017-01-23] MEDS: BALSAM PERU/CASTOR OIL 60 GM TUBE TOP SCH ×2 (08:25→20:14)
[2017-01-23] MEDS: FUROSEMIDE 40 MG INJ IV SCH (08:25)
[2017-01-23] MEDS: MEROPENEM 500MG/50 ML (PMX) 50 ML IVPB SCH ×2 (08:26→20:28)
[2017-01-23] MEDS: ENOXAPARIN 80 MG/0.8 ML SYG SC SCH ×2 (08:41→20:27)
--- NOTE | 2017-01-23 08:58 | CONS ---
Date/Time of Note Date/Time of Note DATE: 01/23/17 TIME: 08:53 Consult Date/Type/Reason Admit Date/Time Jan 10, 2017 at 23:15 Initial Consult Date 01/10/17 Type of Consultation: nephro Ordering Provider: AUBREE PALMA DO Subjective pt. seen and examined d/w rn awake, on vent, fio2 30percent. tolerating feeds good uop in [place] Objective Vital Signs Date Time Temp Pulse Resp B/P Pulse Ox O2 Delivery O2 Flow Rate FiO2 01/23/17 08:00 85 10 99/59 100 Mechanical Ventilator 01/23/17 08:00 30 01/23/17 07:00 98.2 Intake and Output 01/22/17 01/22/17 01/23/17 15:00 23:00 07:00 Intake Total 244.5 ml 450 ml 610 ml Output Total 1285 ml 410 ml 370 ml Balance -1040.5 ml 40 ml 240 ml Exam HEENT exam; supple neck, positive JVD. No lymphadenopathy. Midline trachea. No thyromegaly. Orally intubated. Patient edentulous. Chest exam; diminished but clear breath sounds. S1-S2 audible, no murmurs. Right-sided Pleurx catheter in place. Abdomen exam; soft, nontender tender. No organomegaly. Bowel sounds audible. Extremity exam; no peripheral edema. [employer]ER exam; patient is awake and follows very simple commands like mouth opening. Results/Medications Result Diagram: 01/23/17 0500 01/23/17 0500 Results 24 hrs Laboratory Tests Test 01/22/17 09:20 01/22/17 13:06 01/22/17 16:34 01/22/17 20:33 Bedside Glucose 175 140 144 130 Test 01/23/17 01:06 01/23/17 04:46 01/23/17 05:00 01/23/17 08:33 Bedside Glucose 135 113 127 White Blood Count 8.3 Red Blood Count 3.35 L Hemoglobin 9.6 L Hematocrit 31.8 L Mean Corpuscular Volume 94.9 Mean Corpuscular Hemoglobin 28.7 L Mean Corpuscular Hemoglobin Concent 30.2 L Red Cell Distribution Width 15.7 H Platelet Count 188 Mean Platelet Volume 10.8 H Neutrophils % 25.7 L Lymphocytes % 51.0 Monocytes % 17.9 H Eosinophils % 0.6 Basophils % 0.1 Nucleated Red Blood Cells % 0.0 Neutrophils # 2.1 Lymphocytes # 4.2 H Monocytes # 1.5 H Eosinophils # 0.1 Basophils # 0.0 Nucleated Red Blood Cells # 0.0 Blood Gas Specimen Source Blood arterial Arterial Blood Date Drawn 01/23/2017 4:32:00 AM Arterial Blood pH (Temp corrected) 7.512 H Arterial Blood pCO2 (Temp correct) 36.0 Arterial Blood pO2 (Temp corrected) 109.1 H Arterial Blood HCO3 28.2 H Arterial Blood Base Excess 5.1 H Arterial Blood Oxygen Saturation 97.7 Blayne Test ACCEPTAB Arterial Blood Gas Puncture Site Right Radial Arterial Blood Carboxyhemoglobin 0.3 Arterial Blood Methemoglobin 0.2 Blood Gas A-a O2 Differential 62.5 H Oxyhemoglobin Percent 97.2 Total Hemoglobin 10.1 L Blood Gas Temperature 37.0 Blood Gas Respiration Rate 16.0 Blood Gas Actual Respiration Rate 16 Blood Gas Modality VENT - AC FiO2 30.0 Blood Gas Tidal Volume 400.0 Blood Gas Low PEEP Setting 5.0 Blood Gas Notified Whom LW Blood Gas Notified Time 01/23/2017 4:43:00 AM Sodium Level 140 Potassium Level 3.7 Chloride Level 101 Carbon Dioxide Level 34 H Anion Gap 9 Blood Urea Nitrogen 39 H Creatinine 1.07 H Glucose Level 132 Calcium Level 9.5 Medications Current Medications Propofol (Diprivan) 100 ml @ 2.045 mls/ hr Q12H IV Last administered on 08:16; Admin Dose 10.227 MLS/HR; Start 01/11/17 at 01:30 Enoxaparin Sodium 70 mg 70 mg Q12 SC Last administered on 01/23/17 08:41; Admin Dose 70 MG; Start 01/11/17 at 12:30 Meropenem/Sodium Chloride 50 ml @ 100 mls/hr Q12 IVPB Last administered on 08:26; Admin Dose 100 MLS/HR; Start 01/11/17 at 14:30 Phenylephrine HCl/ Dextrose (Baudilio-Syneph/D5W) 250 ml @ 10 mls/hr TITRATE IV Last administered on 01/17/17 00:00; Admin Dose 7.5 MLS/HR; Start 01/12/17 at 06:00 Mupirocin (Bactroban) 1 applic BID TOP Last administered on 01/23/17 08:25; Admin Dose 1 APPLIC; Start 01/12/17 at 13:00 Morphine Sulfate (morphine) 1 mg Q4H PRN IV PAIN Last administered on 08:07; Admin Dose 1 MG; Start 01/12/17 at 19:00 Diagnostic Test (Pha) (Accu-Chek) 1 ea 02 XX Last administered on 01/22/17 02: 00; Admin Dose 1 EA; Start 01/14/17 at 02:00 Insulin Aspart (Novolog Insulin Pen) NOVOLOG *MILD* ALGORI... Q4 SC Last administered on 01/22/17 16:44; Admin Dose 1 UNIT; Start 01/13/17 at 09:00 Miscellaneous Information 1 ea NOTE XX ; Start 01/13/17 at 07:00 Glucose (Glutose) 15 gm Q15M PRN PO DECREASED GLUCOSE; Start 01/13/17 at 07:00 Glucose (Glutose) 22.5 gm Q15M PRN PO DECREASED GLUCOSE; Start 01/13/17 at 07: 00 Dextrose (D50w Syringe) 25 ml Q15M PRN IV DECREASED GLUCOSE; Start 01/13/17 at 07:00 Dextrose (D50w Syringe) 50 ml Q15M PRN IV DECREASED GLUCOSE; Start 01/13/17 at 07:00 Glucagon (Glucagen) 1 mg Q15M PRN IM DECREASED GLUCOSE; Start 01/13/17 at 07:00 Glucose (Glutose) 15 gm Q15M PRN BUCCAL DECREASED GLUCOSE; Start 01/13/17 at 07 :00 Carvedilol 3.125 mg 3.125 mg BID NGT Last administered on 01/22/17 20:34; Admin Dose 3.125 MG; Start 01/13/17 at 09:00 Midazolam HCl 50 ml @ 1 mls/hr TITRATE IV Last administered on 01/21/17 14:37 ; Admin Dose 3 MLS/HR; Start 01/14/17 at 12:00 Fentanyl (Sublimaze) 100 ml @ 2.5 mls/hr TITRATE IV Last administered on 04:01; Admin Dose 5 MLS/HR; Start 01/14/17 at 13:00 Nystatin (Nystatin Powder) 1 applic BID TOP Last administered on 01/23/17 08: 25; Admin Dose 1 APPLIC; Start 01/14/17 at 15:00 Fluconazole (Diflucan) 100 mg DAILY PO Last administered on 01/23/17 08:25; Admin Dose 100 MG; Start 01/16/17 at 09:00 Furosemide (Lasix) 40 mg DAILY IV Last administered on 01/23/17 08:25; Admin Dose 40 MG; Start 01/18/17 at 09:00 Potassium Chloride (Potassium Chloride Pwd/Soln) 20 meq DAILY GTB Last administered on 01/23/17 08:24; Admin Dose 20 MEQ; Start 01/21/17 at 09:00 Assessment/Plan Chief Complaint/Hosp Course 1. Ventilatory-dependent respiratory failure. -Vent settings and ABGs reviewed. - The patient has failed multiple weaning attempts. -May require trach. 2. Sepsis status post shock. Currently off pressors. -current antibiotic regimen. 3. Decompensated heart failure. Continue current medical management. -Follow up with Cardiology. -Continue diuretic therapy. 4. Hyponatremia. Continue free water flushes. stable. 5. Nonoliguric acute kidney injury with unknown baseline creatinine. -Etiology secondary to hemodynamic sepsis. -Renal function is improving. Continue current treatment plan. 6. Anemia. Monitor H and H levels. Follow up with Hematology. 7. History of chronic lymphocytic leukemia. Continue to monitor. Follow up with Hematology. 8. Mineral bone disorder. Monitor calcium and phosphorus levels. 9. Diabetes. Continue Accu-Cheks and insulin sliding scale. 10. Coronary artery disease. Continue medical management. 11. Pulmonary hypertension. 12. History of pleural effusion with PleurX catheter. 13. Lower extremity deep vein thrombosis. Continue medical management. Follow up with Hematology. 14. Acute encephalopathy. Etiology is toxic metabolic. 15. Gastrointestinal and deep venous thrombosis prophylaxis. Problems: PHILLIP WONG MD Jan 23, 2017 08:58
[2017-01-23] MEDS ORDERED: DOCUSATE SODIUM 100 MG CAP PO SCH (09:00)
--- NOTE | 2017-01-23 09:44 | RADRPT ---
PROCEDURE: XR Chest. CLINICAL INDICATION: Intubated, respiratory failure. TECHNIQUE: Anterior chest x-ray. COMPARISON: 01/21/2017 FINDINGS: There is stable and satisfactory position of the life-support lines. Endotracheal tube terminates 2.5 cm above the jaya. The lung volumes are low. There is crowding of central pulmonary vasculature. Blunting of bilateral costophrenic angle suggest small pleural effusions, left greater than right. Retrocardiac consolidation with obscured left hemidiaphragm is unchanged. The cardiomediastinal contour is stable. There is no free air under the hemidiaphragms. The soft tissues and bony structures are unchanged. IMPRESSION: 1. Stable and satisfactory position of the life-support lines. 2. Low lung volumes with compressive changes in bilateral lung bases. 3. Small bilateral pleural effusions, left greater than right. 4. Atherosclerotic calcification of the aorta. 5. Cardiomegaly. RPTAT: II .Kendall Bundy MD, Date Time Electronically viewed and signed by .Kendall Bundy MD, on 01/23/2017 09:43 .M/
[2017-01-23] MEDS: DOCUSATE SODIUM 10 MG/ML (10ML CUP) GTB SCH ×2 (09:50→20:11)
--- NOTE | 2017-01-23 12:11 | CONS ---
Date/Time of Note Date/Time of Note DATE: 01/23/17 TIME: 12:09 Consult Date/Type/Reason Admit Date/Time Jan 10, 2017 at 23:15 Initial Consult Date 01/10/17 Type of Consultation: Pulm/CCM Ordering Provider: AUBREE PALMA DO Subjective Awake on [facility] vent. Objective Vital Signs Date Time Temp Pulse Resp B/P Pulse Ox O2 Delivery O2 Flow Rate FiO2 01/23/17 11:00 78 16 85/51 100 Mechanical Ventilator 01/23/17 08:00 30 01/23/17 07:00 98.2 Intake and Output 01/22/17 01/22/17 01/23/17 15:00 23:00 07:00 Intake Total 244.5 ml 450 ml 610 ml Output Total 1285 ml 410 ml 370 ml Balance -1040.5 ml 40 ml 240 ml Exam HEENT: Neck supple; no JVD; no LAD; + ET tube CVS: Irreg irreg, S1 and S2 CHEST: Decreased BS B/L ABD: Soft, NT, + BS EXT: No c/c; + edema Results/Medications Result Diagram: 01/23/17 0500 01/23/17 0500 Results 24 hrs Laboratory Tests Test 01/22/17 13:06 01/22/17 16:34 01/22/17 20:33 01/23/17 01:06 Bedside Glucose 140 144 130 135 Test 01/23/17 04:46 01/23/17 05:00 01/23/17 08:33 Bedside Glucose 113 127 White Blood Count 8.3 Red Blood Count 3.35 L Hemoglobin 9.6 L Hematocrit 31.8 L Mean Corpuscular Volume 94.9 Mean Corpuscular Hemoglobin 28.7 L Mean Corpuscular Hemoglobin Concent 30.2 L Red Cell Distribution Width 15.7 H Platelet Count 188 Mean Platelet Volume 10.8 H Neutrophils % 25.7 L Lymphocytes % 51.0 Monocytes % 17.9 H Eosinophils % 0.6 Basophils % 0.1 Nucleated Red Blood Cells % 0.0 Neutrophils # 2.1 Lymphocytes # 4.2 H Monocytes # 1.5 H Eosinophils # 0.1 Basophils # 0.0 Nucleated Red Blood Cells # 0.0 Blood Gas Specimen Source Blood arterial Arterial Blood Date Drawn 01/23/2017 4:32:00 AM Arterial Blood pH (Temp corrected) 7.512 H Arterial Blood pCO2 (Temp correct) 36.0 Arterial Blood pO2 (Temp corrected) 109.1 H Arterial Blood HCO3 28.2 H Arterial Blood Base Excess 5.1 H Arterial Blood Oxygen Saturation 97.7 Blayne Test ACCEPTAB Arterial Blood Gas Puncture Site Right Radial Arterial Blood Carboxyhemoglobin 0.3 Arterial Blood Methemoglobin 0.2 Blood Gas A-a O2 Differential 62.5 H Oxyhemoglobin Percent 97.2 Total Hemoglobin 10.1 L Blood Gas Temperature 37.0 Blood Gas Respiration Rate 16.0 Blood Gas Actual Respiration Rate 16 Blood Gas Modality VENT - AC FiO2 30.0 Blood Gas Tidal Volume 400.0 Blood Gas Low PEEP Setting 5.0 Blood Gas Notified Whom LW Blood Gas Notified Time 01/23/2017 4:43:00 AM Sodium Level 140 Potassium Level 3.7 Chloride Level 101 Carbon Dioxide Level 34 H Anion Gap 9 Blood Urea Nitrogen 39 H Creatinine 1.07 H Glucose Level 132 Calcium Level 9.5 Medications Current Medications Propofol (Diprivan) 100 ml @ 2.045 mls/ hr Q12H IV Last administered on 08:16; Admin Dose 10.227 MLS/HR; Start 01/11/17 at 01:30 Enoxaparin Sodium 70 mg 70 mg Q12 SC Last administered on 01/23/17 08:41; Admin Dose 70 MG; Start 01/11/17 at 12:30 Meropenem/Sodium Chloride 50 ml @ 100 mls/hr Q12 IVPB Last administered on 08:26; Admin Dose 100 MLS/HR; Start 01/11/17 at 14:30 Phenylephrine HCl/ Dextrose (Baudilio-Syneph/D5W) 250 ml @ 10 mls/hr TITRATE IV Last administered on 01/17/17 00:00; Admin Dose 7.5 MLS/HR; Start 01/12/17 at 06:00 Mupirocin (Bactroban) 1 applic BID TOP Last administered on 01/23/17 08:25; Admin Dose 1 APPLIC; Start 01/12/17 at 13:00 Morphine Sulfate (morphine) 1 mg Q4H PRN IV PAIN Last administered on 08:07; Admin Dose 1 MG; Start 01/12/17 at 19:00 Diagnostic Test (Pha) (Accu-Chek) 1 ea 02 XX Last administered on 01/22/17 02: 00; Admin Dose 1 EA; Start 01/14/17 at 02:00 Insulin Aspart (Novolog Insulin Pen) NOVOLOG *MILD* ALGORI... Q4 SC Last administered on 01/22/17 16:44; Admin Dose 1 UNIT; Start 01/13/17 at 09:00 Miscellaneous Information 1 ea NOTE XX ; Start 01/13/17 at 07:00 Glucose (Glutose) 15 gm Q15M PRN PO DECREASED GLUCOSE; Start 01/13/17 at 07:00 Glucose (Glutose) 22.5 gm Q15M PRN PO DECREASED GLUCOSE; Start 01/13/17 at 07: 00 Dextrose (D50w Syringe) 25 ml Q15M PRN IV DECREASED GLUCOSE; Start 01/13/17 at 07:00 Dextrose (D50w Syringe) 50 ml Q15M PRN IV DECREASED GLUCOSE; Start 01/13/17 at 07:00 Glucagon (Glucagen) 1 mg Q15M PRN IM DECREASED GLUCOSE; Start 01/13/17 at 07:00 Glucose (Glutose) 15 gm Q15M PRN BUCCAL DECREASED GLUCOSE; Start 01/13/17 at 07 :00 Carvedilol 3.125 mg 3.125 mg BID NGT Last administered on 01/22/17 20:34; Admin Dose 3.125 MG; Start 01/13/17 at 09:00 Midazolam HCl 50 ml @ 1 mls/hr TITRATE IV Last administered on 01/21/17 14:37 ; Admin Dose 3 MLS/HR; Start 01/14/17 at 12:00 Fentanyl (Sublimaze) 100 ml @ 2.5 mls/hr TITRATE IV Last administered on 04:01; Admin Dose 5 MLS/HR; Start 01/14/17 at 13:00 Nystatin (Nystatin Powder) 1 applic BID TOP Last administered on 01/23/17 08: 25; Admin Dose 1 APPLIC; Start 01/14/17 at 15:00 Fluconazole (Diflucan) 100 mg DAILY PO Last administered on 01/23/17 08:25; Admin Dose 100 MG; Start 01/16/17 at 09:00 Furosemide (Lasix) 40 mg DAILY IV Last administered on 01/23/17 08:25; Admin Dose 40 MG; Start 01/18/17 at 09:00 Potassium Chloride (Potassium Chloride Pwd/Soln) 20 meq DAILY GTB Last administered on 01/23/17 08:24; Admin Dose 20 MEQ; Start 01/21/17 at 09:00 Docusate Sodium (Colace Liquid Cup) 100 mg BID GTB Last administered on 09:50; Admin Dose 100 MG; Start 01/23/17 at 10:00 Assessment/Plan Additional Assessment/Plan IMP: 1. Status post septic shock. 2. Acute respiratory failure, status post re-intubation 3. Pneumonia 4. Chronic lymphocytic leukemia 5. Recurrent pleural effusions, history of right PleurX catheter placement 6. Atrial fibrillation RECS: 1. Vent support 2. Will try weaning as tolerated, however, severe deconditioning is limiting factor--> may require trach 3. Family to discuss goals of care 4. TF/Free H20 35 min cc time MELISSA MARK MD Jan 23, 2017 12:11
--- NOTE | 2017-01-23 14:03 | CONS ---
Date/Time of Note Date/Time of Note DATE: 01/23/17 TIME: 13:59 Assessment/Plan Assessment/Plan Chief Complaint/Hosp Course ID PROGRESS NOTE TOTAL ABX DAY # CURRENT ABX=> Merrem, Diflucan, s/p Vanco IV (DC'd 01/21) 24H INTERVAL SUMMARY * Awake, stable on the Vent -- No PleurX output drainage today per RN * No fevers, WBC normalized * Pulmonary notes reviewed -- weaning trials w/caveat patient may be too weak, may end up needing trach to continue weaning. * MICROBIOLOGY: Urine and sputum culture grew Dominga albicans. * DIAGNOSTICS: Chest x-ray revealed increased left lower lobe infiltrate combined with small pleural effusion. GENERAL: VSS, NAD, orally intubated, responsive HEENT: ETT/OGT -> Secure NECK: Trach midline, full ROM CHEST: Rise symmetrical without dyspnea on observation ABDOMEN: Soft, NT EXTREMITIES: Warm,(+) moves extremities, (+)Generalized edema SKIN: No diaphoresis, no rash ID ASSESSMENT: 81 yo F admit with: 1. Status post septic shock. 2. Acute respiratory failure, status post re-intubated. 3. Pneumonia possibly aspiration type. 4. Chronic lymphocytic leukemia. 5. Recurrent pleural effusions, history of right PleurX catheter placement. * Elevated BNP 6. Diabetes. 7. Atrial fibrillation. 8. Dominga albicans urinary tract infection. 9. History of deep vein thrombosis. 10. Renal insufficiency (+)MRSA Nares -> Bactroban INVASIVES: ETT, NGT, R-Pleur-X, L-IJ TLC, FC ABX ALLERGY: Ceftriaxone TOTAL ABX DAY # CURRENT ABX=> Merrem, Diflucan, s/p Vanco IV (DC'd 01/21) ID PLAN 1. Continue current ABX, off Vanco IV due to renal insufficiency 2. Allergy to Ceftriaxone = justification for Merrem, may consider de-escalate to Quinolone future . Problems: Consultation Date/Type/Reason Admit Date/Time Jan 10, 2017 at 23:15 Initial Consult Date 01/10/17 Type of Consultation: ID Referring Provider: AUBREE PALMA DO Exam/Review of Systems Vital Signs Vitals Vital Signs Date Time Temp Pulse Resp B/P Pulse Ox O2 Delivery O2 Flow Rate FiO2 01/23/17 13:00 86 17 102/61 Mechanical Ventilator 01/23/17 12:00 98.1 01/23/17 11:00 100 01/23/17 08:00 30 Intake and Output 01/22/17 01/22/17 01/23/17 14:59 22:59 06:59 Intake Total 239.5 ml 450 ml 615 ml Output Total 1180 ml 520 ml 390 ml Balance -940.5 ml -70 ml 225 ml Results Result Diagram: 01/23/17 0500 01/23/17 0500 Results 24 hrs Laboratory Tests Test 01/22/17 16:34 01/22/17 20:33 01/23/17 01:06 01/23/17 04:46 Bedside Glucose 144 130 135 113 Test 01/23/17 05:00 01/23/17 08:33 01/23/17 12:28 White Blood Count 8.3 Red Blood Count 3.35 L Hemoglobin 9.6 L Hematocrit 31.8 L Mean Corpuscular Volume 94.9 Mean Corpuscular Hemoglobin 28.7 L Mean Corpuscular Hemoglobin Concent 30.2 L Red Cell Distribution Width 15.7 H Platelet Count 188 Mean Platelet Volume 10.8 H Neutrophils % 25.7 L Lymphocytes % 51.0 Monocytes % 17.9 H Eosinophils % 0.6 Basophils % 0.1 Nucleated Red Blood Cells % 0.0 Neutrophils # 2.1 Lymphocytes # 4.2 H Monocytes # 1.5 H Eosinophils # 0.1 Basophils # 0.0 Nucleated Red Blood Cells # 0.0 Blood Gas Specimen Source Blood arterial Arterial Blood Date Drawn 01/23/2017 4:32:00 AM Arterial Blood pH (Temp corrected) 7.512 H Arterial Blood pCO2 (Temp correct) 36.0 Arterial Blood pO2 (Temp corrected) 109.1 H Arterial Blood HCO3 28.2 H Arterial Blood Base Excess 5.1 H Arterial Blood Oxygen Saturation 97.7 Blayne Test ACCEPTAB Arterial Blood Gas Puncture Site Right Radial Arterial Blood Carboxyhemoglobin 0.3 Arterial Blood Methemoglobin 0.2 Blood Gas A-a O2 Differential 62.5 H Oxyhemoglobin Percent 97.2 Total Hemoglobin 10.1 L Blood Gas Temperature 37.0 Blood Gas Respiration Rate 16.0 Blood Gas Actual Respiration Rate 16 Blood Gas Modality VENT - AC FiO2 30.0 Blood Gas Tidal Volume 400.0 Blood Gas Low PEEP Setting 5.0 Blood Gas Notified Whom LW Blood Gas Notified Time 01/23/2017 4:43:00 AM Sodium Level 140 Potassium Level 3.7 Chloride Level 101 Carbon Dioxide Level 34 H Anion Gap 9 Blood Urea Nitrogen 39 H Creatinine 1.07 H Glucose Level 132 Calcium Level 9.5 Bedside Glucose 127 126 Medications Medications Current Medications Propofol (Diprivan) 100 ml @ 2.045 mls/ hr Q12H IV Last administered on 08:16; Admin Dose 10.227 MLS/HR; Start 01/11/17 at 01:30 Enoxaparin Sodium 70 mg 70 mg Q12 SC Last administered on 01/23/17 08:41; Admin Dose 70 MG; Start 01/11/17 at 12:30 Meropenem/Sodium Chloride 50 ml @ 100 mls/hr Q12 IVPB Last administered on 08:26; Admin Dose 100 MLS/HR; Start 01/11/17 at 14:30 Phenylephrine HCl/ Dextrose (Baudilio-Syneph/D5W) 250 ml @ 10 mls/hr TITRATE IV Last administered on 01/17/17 00:00; Admin Dose 7.5 MLS/HR; Start 01/12/17 at 06:00 Mupirocin (Bactroban) 1 applic BID TOP Last administered on 01/23/17 08:25; Admin Dose 1 APPLIC; Start 01/12/17 at 13:00 Morphine Sulfate (morphine) 1 mg Q4H PRN IV PAIN Last administered on 08:07; Admin Dose 1 MG; Start 01/12/17 at 19:00 Diagnostic Test (Pha) (Accu-Chek) 1 ea 02 XX Last administered on 01/22/17 02: 00; Admin Dose 1 EA; Start 01/14/17 at 02:00 Insulin Aspart (Novolog Insulin Pen) NOVOLOG *MILD* ALGORI... Q4 SC Last administered on 01/22/17 16:44; Admin Dose 1 UNIT; Start 01/13/17 at 09:00 Miscellaneous Information 1 ea NOTE XX ; Start 01/13/17 at 07:00 Glucose (Glutose) 15 gm Q15M PRN PO DECREASED GLUCOSE; Start 01/13/17 at 07:00 Glucose (Glutose) 22.5 gm Q15M PRN PO DECREASED GLUCOSE; Start 01/13/17 at 07: 00 Dextrose (D50w Syringe) 25 ml Q15M PRN IV DECREASED GLUCOSE; Start 01/13/17 at 07:00 Dextrose (D50w Syringe) 50 ml Q15M PRN IV DECREASED GLUCOSE; Start 01/13/17 at 07:00 Glucagon (Glucagen) 1 mg Q15M PRN IM DECREASED GLUCOSE; Start 01/13/17 at 07:00 Glucose (Glutose) 15 gm Q15M PRN BUCCAL DECREASED GLUCOSE; Start 01/13/17 at 07 :00 Carvedilol 3.125 mg 3.125 mg BID NGT Last administered on 01/22/17 20:34; Admin Dose 3.125 MG; Start 01/13/17 at 09:00 Midazolam HCl 50 ml @ 1 mls/hr TITRATE IV Last administered on 01/21/17 14:37 ; Admin Dose 3 MLS/HR; Start 01/14/17 at 12:00 Fentanyl (Sublimaze) 100 ml @ 2.5 mls/hr TITRATE IV Last administered on 04:01; Admin Dose 5 MLS/HR; Start 01/14/17 at 13:00 Nystatin (Nystatin Powder) 1 applic BID TOP Last administered on 01/23/17 08: 25; Admin Dose 1 APPLIC; Start 01/14/17 at 15:00 Fluconazole (Diflucan) 100 mg DAILY PO Last administered on 01/23/17 08:25; Admin Dose 100 MG; Start 01/16/17 at 09:00 Furosemide (Lasix) 40 mg DAILY IV Last administered on 01/23/17 08:25; Admin Dose 40 MG; Start 01/18/17 at 09:00 Potassium Chloride (Potassium Chloride Pwd/Soln) 20 meq DAILY GTB Last administered on 01/23/17 08:24; Admin Dose 20 MEQ; Start 01/21/17 at 09:00 Docusate Sodium (Colace Liquid Cup) 100 mg BID GTB Last administered on 09:50; Admin Dose 100 MG; Start 01/23/17 at 10:00 GINO HALL NP Jan 23, 2017 14:02
--- NOTE | 2017-01-23 17:55 | CONS ---
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 Septic shock. Acute decompensated heart failure. Nonoliguric acute kidney injury with unknown baseline creatinine. Etiology secondary to septic acute kidney injury, acute tubular necrosis. Mineral bone disorder. Diabetes. Continue Accu-Cheks and sliding scale. Coronary artery disease. Pulmonary hypertension. Pleural effusions with history of PleurX catheter, currently nonfunctional. Problems: Consultation Date/Type/Reason Admit Date/Time Jan 10, 2017 at 23:15 Initial Consult Date 01/11/17 Type of Consultation: [facility] Referring Provider: AUBREE PALMA DO 24 HR Interval Summary Free Text/Dictation all noted Awake on mech vent. stable NAD WBC- IMPROVED Exam/Review of Systems Vital Signs Vitals Vital Signs Date Time Temp Pulse Resp B/P Pulse Ox O2 Delivery O2 Flow Rate FiO2 01/23/17 17:30 89 22 100 30 01/23/17 17:00 111/62 Mechanical Ventilator 01/23/17 16:00 98.3 Intake and Output 01/22/17 01/22/17 01/23/17 15:00 23:00 07:00 Intake Total 244.5 ml 450 ml 610 ml Output Total 1285 ml 410 ml 370 ml Balance -1040.5 ml 40 ml 240 ml Exam HEENT: Head is normocephalic. NECK: Supple. HEART: Regular rate. LUNGS: Diminished breath sounds at the base. ABDOMEN: Soft, nontender to palpation. No rebound or guarding. EXTREMITIES: Negative for clubbing, cyanosis. No edema. DERMATOLOGIC: No rashes. MUSCULOSKELETAL: No joint effusion. NEUROLOGIC: No change in exam. Results Result Diagram: 01/23/17 0500 01/23/17 0500 Results 24 hrs Laboratory Tests Test 01/22/17 20:33 01/23/17 01:06 01/23/17 04:46 01/23/17 05:00 Bedside Glucose 130 135 113 White Blood Count 8.3 Red Blood Count 3.35 L Hemoglobin 9.6 L Hematocrit 31.8 L Mean Corpuscular Volume 94.9 Mean Corpuscular Hemoglobin 28.7 L Mean Corpuscular Hemoglobin Concent 30.2 L Red Cell Distribution Width 15.7 H Platelet Count 188 Mean Platelet Volume 10.8 H Neutrophils % 25.7 L Lymphocytes % 51.0 Monocytes % 17.9 H Eosinophils % 0.6 Basophils % 0.1 Nucleated Red Blood Cells % 0.0 Neutrophils # 2.1 Lymphocytes # 4.2 H Monocytes # 1.5 H Eosinophils # 0.1 Basophils # 0.0 Nucleated Red Blood Cells # 0.0 Blood Gas Specimen Source Blood arterial Arterial Blood Date Drawn 01/23/2017 4:32:00 AM Arterial Blood pH (Temp corrected) 7.512 H Arterial Blood pCO2 (Temp correct) 36.0 Arterial Blood pO2 (Temp corrected) 109.1 H Arterial Blood HCO3 28.2 H Arterial Blood Base Excess 5.1 H Arterial Blood Oxygen Saturation 97.7 Blayne Test ACCEPTAB Arterial Blood Gas Puncture Site Right Radial Arterial Blood Carboxyhemoglobin 0.3 Arterial Blood Methemoglobin 0.2 Blood Gas A-a O2 Differential 62.5 H Oxyhemoglobin Percent 97.2 Total Hemoglobin 10.1 L Blood Gas Temperature 37.0 Blood Gas Respiration Rate 16.0 Blood Gas Actual Respiration Rate 16 Blood Gas Modality VENT - AC FiO2 30.0 Blood Gas Tidal Volume 400.0 Blood Gas Low PEEP Setting 5.0 Blood Gas Notified Whom LW Blood Gas Notified Time 01/23/2017 4:43:00 AM Sodium Level 140 Potassium Level 3.7 Chloride Level 101 Carbon Dioxide Level 34 H Anion Gap 9 Blood Urea Nitrogen 39 H Creatinine 1.07 H Glucose Level 132 Calcium Level 9.5 Test 01/23/17 08:33 01/23/17 12:28 01/23/17 17:01 Bedside Glucose 127 126 131 Medications Medications Current Medications Propofol (Diprivan) 100 ml @ 2.045 mls/ hr Q12H IV Last administered on 08:16; Admin Dose 10.227 MLS/HR; Start 01/11/17 at 01:30 Enoxaparin Sodium 70 mg 70 mg Q12 SC Last administered on 01/23/17 08:41; Admin Dose 70 MG; Start 01/11/17 at 12:30 Meropenem/Sodium Chloride 50 ml @ 100 mls/hr Q12 IVPB Last administered on 08:26; Admin Dose 100 MLS/HR; Start 01/11/17 at 14:30 Phenylephrine HCl/ Dextrose (Baudilio-Syneph/D5W) 250 ml @ 10 mls/hr TITRATE IV Last administered on 01/17/17 00:00; Admin Dose 7.5 MLS/HR; Start 01/12/17 at 06:00 Mupirocin (Bactroban) 1 applic BID TOP Last administered on 01/23/17 08:25; Admin Dose 1 APPLIC; Start 01/12/17 at 13:00 Morphine Sulfate (morphine) 1 mg Q4H PRN IV PAIN Last administered on 08:07; Admin Dose 1 MG; Start 01/12/17 at 19:00 Diagnostic Test (Pha) (Accu-Chek) 1 ea 02 XX Last administered on 01/22/17 02: 00; Admin Dose 1 EA; Start 01/14/17 at 02:00 Insulin Aspart (Novolog Insulin Pen) NOVOLOG *MILD* ALGORI... Q4 SC Last administered on 01/22/17 16:44; Admin Dose 1 UNIT; Start 01/13/17 at 09:00 Miscellaneous Information 1 ea NOTE XX ; Start 01/13/17 at 07:00 Glucose (Glutose) 15 gm Q15M PRN PO DECREASED GLUCOSE; Start 01/13/17 at 07:00 Glucose (Glutose) 22.5 gm Q15M PRN PO DECREASED GLUCOSE; Start 01/13/17 at 07: 00 Dextrose (D50w Syringe) 25 ml Q15M PRN IV DECREASED GLUCOSE; Start 01/13/17 at 07:00 Dextrose (D50w Syringe) 50 ml Q15M PRN IV DECREASED GLUCOSE; Start 01/13/17 at 07:00 Glucagon (Glucagen) 1 mg Q15M PRN IM DECREASED GLUCOSE; Start 01/13/17 at 07:00 Glucose (Glutose) 15 gm Q15M PRN BUCCAL DECREASED GLUCOSE; Start 01/13/17 at 07 :00 Carvedilol 3.125 mg 3.125 mg BID NGT Last administered on 01/22/17 20:34; Admin Dose 3.125 MG; Start 01/13/17 at 09:00 Midazolam HCl 50 ml @ 1 mls/hr TITRATE IV Last administered on 01/21/17 14:37 ; Admin Dose 3 MLS/HR; Start 01/14/17 at 12:00 Fentanyl (Sublimaze) 100 ml @ 2.5 mls/hr TITRATE IV Last administered on 04:01; Admin Dose 5 MLS/HR; Start 01/14/17 at 13:00 Nystatin (Nystatin Powder) 1 applic BID TOP Last administered on 01/23/17 08: 25; Admin Dose 1 APPLIC; Start 01/14/17 at 15:00 Fluconazole (Diflucan) 100 mg DAILY PO Last administered on 01/23/17 08:25; Admin Dose 100 MG; Start 01/16/17 at 09:00 Furosemide (Lasix) 40 mg DAILY IV Last administered on 01/23/17 08:25; Admin Dose 40 MG; Start 01/18/17 at 09:00 Potassium Chloride (Potassium Chloride Pwd/Soln) 20 meq DAILY GTB Last administered on 01/23/17 08:24; Admin Dose 20 MEQ; Start 01/21/17 at 09:00 Docusate Sodium (Colace Liquid Cup) 100 mg BID GTB Last administered on 09:50; Admin Dose 100 MG; Start 01/23/17 at 10:00 SE RAY MD Jan 23, 2017 17:54
[2017-01-24] VITALS (36 sets, daily range): BP systolic 79–120; BP diastolic 47–95; PULSE 75–115; RESP 7–32
[2017-01-24] MEDS: INSULIN ASPART [NOVOLOG] 3 ML PEN SC SCH ×6 (00:58→20:40)
[2017-01-24] MEDS: ACCU-CHEK XX SCH (01:00)
[2017-01-24] MEDS: PROPOFOL 100 ML IV SCH ×2 (01:00→12:39)
[2017-01-24 05:53] LABS: ABNORMAL IP MESSAGE 1; BASOPHILS % 0.2 % (0.0-2.0); EOSINOPHILS # 0.1 10^3/ul (0.0-0.5); EOSINOPHILS % 0.7 % (0.0-7.0); HEMATOCRIT 33.2 % (37.0-47.0); HEMOGLOBIN 10.3 g/dl (12.0-16.0); LYMPHOCYTES # 3.9 10^3/ul (0.8-2.9); LYMPHOCYTES % 41.8 % (15.0-51.0); MEAN CORPUSCULAR HEMOGLOBIN 29.1 pg (29.0-33.0); MEAN CORPUSCULAR VOLUME 93.8 fl (82.0-101.0); MEAN PLATELET VOLUME 10.4 fl (7.4-10.4); MONOCYTE # 2.5 10^3/ul (0.3-0.9); NEUTROPHIL # 2.5 10^3/ul (1.6-7.5); NEUTROPHILS % 27.2 % (39.0-77.0); PLATELET COUNT 208 10^3/UL (140-415); RED BLOOD COUNT 3.54 10^6/ul (4.20-5.40); RED CELL DISTRIBUTION WIDTH 15.3 % (11.5-14.5); WHITE BLOOD COUNT 9.2 10^3/ul (4.8-10.8)
[2017-01-24 06:01] LABS: POSITIVE DIFF @See below
[2017-01-24 06:30] LABS: CALCIUM 9.7 mg/dl (8.4-10.2); CREATININE 1.03 mg/dl (0.44-1.00); PHOSPHORUS 4.1 mg/dl (2.5-4.9)
[2017-01-24 06:45] LABS: ALBUMIN 3.5 g/dl (3.3-4.9); ALBUMIN/GLOBULIN RATIO 1.29; BILIRUBIN,INDIRECT 0.3 mg/dl (0-1.1); BILIRUBIN,TOTAL 0.3 mg/dl (0.2-1.3); CALCIUM 9.8 mg/dl (8.4-10.2); CREATININE 1.11 mg/dl (0.44-1.00); MAGNESIUM 2.2 mg/dl (1.7-2.5); POTASSIUM 3.8 mmol/L (3.5-5.1); TOTAL PROTEIN 6.2 g/dl (6.1-8.1)
[2017-01-24] MEDS: FLUCONAZOLE 100 MG TAB PO SCH (09:00)
[2017-01-24] MEDS: DOCUSATE SODIUM 10 MG/ML (10ML CUP) GTB SCH ×2 (09:00→20:33)
[2017-01-24] MEDS: METOCLOPRAMIDE 10 MG INJ IV PRN ×2 (09:01→23:51)
[2017-01-24] MEDS: POTASSIUM CHLORIDE 20 MEQ POWDER FOR ORAL SOLN GTB SCH (09:02)
[2017-01-24] MEDS: FUROSEMIDE 40 MG INJ IV SCH (09:02)
[2017-01-24] MEDS: BALSAM PERU/CASTOR OIL 60 GM TUBE TOP SCH ×2 (09:04→20:34)
[2017-01-24] MEDS: MUPIROCIN 2% 22 GM OINT TOP SCH ×2 (09:04→20:34)
[2017-01-24] MEDS: NYSTATIN 30 GM POWDER BTL TOP SCH ×2 (09:04→20:34)
[2017-01-24] MEDS: ENOXAPARIN 80 MG/0.8 ML SYG SC SCH ×2 (09:04→20:40)
[2017-01-24] MEDS: MEROPENEM 500MG/50 ML (PMX) 50 ML IVPB SCH (09:08)
--- NOTE | 2017-01-24 09:44 | PN ---
DATE: 01/24/2017 SUBJECTIVELY: The patient is currently stable. No events overnight. The patient has failed multiple weaning attempts. We will attempt further weaning trials as per Pulmonary today. No other acute events noted. OBJECTIVE DATA: VITAL SIGNS: Blood pressure is 106/62, pulse 80, temperature 98.2, respirations 16. HEENT: Head is normocephalic. Pupils are reactive to light. NECK: Supple. HEART: Regular rate. LUNGS: Diminished breath sounds at the base. ABDOMEN: Soft, nontender to palpation. No rebound or guarding. EXTREMITIES: Negative for clubbing, cyanosis, trace edema. DERMATOLOGIC: Clean. No rashes. MUSCULOSKELETAL: No joint effusion. NEUROLOGIC: No change in exam. MEDICATIONS: Reviewed. LABORATORY AND DIAGNOSTIC DATA: Shows sodium 139, potassium 3.8, chloride 99, BUN 37, creatinine 1.01. White count 9.2, hemoglobin 10.3, hematocrit 33.2, platelet count is 208,000. The patient's chest x-ray from 01/23/2017 shows low lung volumes compressive changes, bilateral pleural effusions left greater than right. ASSESSMENT AND PLAN: 1. Ventilator dependent respiratory failure. Vent settings and ABGs reviewed. The patient has failed multiple weaning attempts. Will continue weaning. Per pulmonary the patient may require trach. 2. Sepsis status post shock. Continue current antibiotic regimen. Follow up Infectious Disease. 3. Decompensated heart failure. Continue current medical management. Follow up Cardiology. Continue diuretic therapy. 4. Hyponatremia, improved. 5. Nonoliguric acute kidney injury with unknown baseline creatinine. Etiology is likely secondary to hemodynamics and sepsis. Renal function is improving. Continue current treatment plan. 6. Anemia. Monitor hemoglobin and hematocrit levels. Follow up with Hematology. 7. History of chronic lymphocytic leukemia. Continue to monitor. 8. Mineral bone disorder. Will monitor calcium and phosphorus levels. 9. Diabetes. Continue Accu-Cheks and insulin sliding scale. 10. Coronary artery disease. Continue medical management. 11. Pulmonary hypertension. 12. Bilateral pleural effusions. 13. Lower extremity deep vein thrombosis. Continue current medical management. Follow up with Hematology. 14. Encephalopathy. Etiology is toxic metabolic. 15. Gastrointestinal and deep venous thrombosis prophylaxis. Dictated By: Timo Mccracken DO /linette/skye /Document#: [id number]
--- NOTE | 2017-01-24 12:14 | CONS ---
Date/Time of Note Date/Time of Note DATE: 01/24/17 TIME: 12:10 Assessment/Plan Assessment/Plan Chief Complaint/Hosp Course Consult dictated #[id number] Problems: Additional Assessment/Plan Chest x-ray was reviewed from yesterday morning which is showing marked improvement in bilateral pneumonia and pulmonary edema. There is almost complete resolution of pleural effusions. Next Ventilator setting; AC of 16, tidal volume 400, PEEP of 5, 30% FiO2. Patient currently on fentanyl drip at 50 mics per hour. Assessment and recommendations; 1. Patient admitted with bilateral pneumonia and sepsis with marked overall clinical and radiological improvement. 2. History of chronic recurrent pleural effusion status post Pleurx catheter placed on the right side in the past. However there is currently no reaccumulation of pleural effusions. 3.. History of chronic lymphocytic leukemia. 4. Generalized deconditioning. 5. Failure to be weaned from ventilator despite numerous attempts. Patient also was put on CPAP mode this morning but has extremely poor weaning parameters. Continue current treatment. Patient will need to have a tracheostomy and G- tube placed. The patient's son still has not decided about that. Consultation Date/Type/Reason Admit Date/Time Jan 10, 2017 at 23:15 Initial Consult Date 01/11/17 Type of Consultation: Pulmonary/critical care Referring Provider: AUBREE PALMA DO 24 HR Interval Summary Free Text/Dictation Patient's condition remains critical. Has failed multiple weaning trials from ventilator. Despite being on sedation patient is completely awake and alert. General exam; elderly woman, orally intubated, awake and alert. Currently in no distress. Exam/Review of Systems Vital Signs Vitals Vital Signs Date Time Temp Pulse Resp B/P Pulse Ox O2 Delivery O2 Flow Rate FiO2 01/24/17 11:32 81 19 100 30 01/24/17 09:00 85/47 Mechanical Ventilator 01/24/17 08:00 98.2 Intake and Output 01/23/17 01/23/17 01/24/17 14:59 22:59 06:59 Intake Total 350 ml 660 ml 118 ml Output Total 505 ml 440 ml 305 ml Balance -155 ml 220 ml -187 ml Exam HEENT exam; supple neck, no JVD. No lymphadenopathy. Midline trachea. No thyromegaly. Orally intubated. Is edentulous. Pupils are small bilaterally. Chest exam; clear to auscultation. S1-S2 audible, no murmurs. Regular rhythm. There is a Pleurx catheter in the right lower lateral chest wall. Abdomen exam; soft, non-distended. No tender. No organomegaly. Bowel sounds audible. Extremity exam; no edema. SPECIAL EDUCATOR exam; he is awake and follows simple commands. Results Result Diagram: 01/24/17 0445 01/24/17 0445 Results 24 hrs Laboratory Tests Test 01/23/17 12:28 01/23/17 17:01 01/23/17 20:13 01/24/17 00:56 Bedside Glucose 126 131 155 156 Test 01/24/17 04:44 01/24/17 04:45 01/24/17 09:10 Bedside Glucose 88 118 White Blood Count 9.2 Red Blood Count 3.54 L Hemoglobin 10.3 L Hematocrit 33.2 L Mean Corpuscular Volume 93.8 Mean Corpuscular Hemoglobin 29.1 Mean Corpuscular Hemoglobin Concent 31.0 L Red Cell Distribution Width 15.3 H Platelet Count 208 Mean Platelet Volume 10.4 Neutrophils % 27.2 L Lymphocytes % 41.8 Monocytes % 27.0 H Eosinophils % 0.7 Basophils % 0.2 Nucleated Red Blood Cells % 0.0 Neutrophils # 2.5 Lymphocytes # 3.9 H Monocytes # 2.5 H Eosinophils # 0.1 Basophils # 0.0 Nucleated Red Blood Cells # 0.0 Sodium Level 139 Potassium Level 3.8 Chloride Level 99 Carbon Dioxide Level 33 H Anion Gap 11 Blood Urea Nitrogen 37 H Creatinine 1.11 H Glucose Level 103 Calcium Level 9.8 Phosphorus Level 4.1 Magnesium Level 2.2 Total Bilirubin 0.3 Direct Bilirubin 0.00 Indirect Bilirubin 0.3 Aspartate Amino Transf (AST/SGOT) 36 Alanine Aminotransferase (ALT/SGPT) 35 Alkaline Phosphatase 58 B-Type Natriuretic Peptide 3580 H Total Protein 6.2 Albumin 3.5 Globulin 2.70 Albumin/Globulin Ratio 1.29 Digoxin Level 0.5 L Medications Medications Current Medications Propofol (Diprivan) 100 ml @ 2.045 mls/ hr Q12H IV Last administered on 08:16; Admin Dose 10.227 MLS/HR; Start 01/11/17 at 01:30 Enoxaparin Sodium 70 mg 70 mg Q12 SC Last administered on 01/24/17 09:04; Admin Dose 70 MG; Start 01/11/17 at 12:30 Phenylephrine HCl/ Dextrose (Baudilio-Syneph/D5W) 250 ml @ 10 mls/hr TITRATE IV Last administered on 01/17/17 00:00; Admin Dose 7.5 MLS/HR; Start 01/12/17 at 06:00 Mupirocin (Bactroban) 1 applic BID TOP Last administered on 01/24/17 09:04; Admin Dose 1 APPLIC; Start 01/12/17 at 13:00 Morphine Sulfate (morphine) 1 mg Q4H PRN IV PAIN Last administered on 08:07; Admin Dose 1 MG; Start 01/12/17 at 19:00 Diagnostic Test (Pha) (Accu-Chek) 1 ea 02 XX Last administered on 01/22/17 02: 00; Admin Dose 1 EA; Start 01/14/17 at 02:00 Insulin Aspart (Novolog Insulin Pen) NOVOLOG *MILD* ALGORI... Q4 SC Last administered on 01/24/17 00:58; Admin Dose 1 UNIT; Start 01/13/17 at 09:00 Miscellaneous Information 1 ea NOTE XX ; Start 01/13/17 at 07:00 Glucose (Glutose) 15 gm Q15M PRN PO DECREASED GLUCOSE; Start 01/13/17 at 07:00 Glucose (Glutose) 22.5 gm Q15M PRN PO DECREASED GLUCOSE; Start 01/13/17 at 07: 00 Dextrose (D50w Syringe) 25 ml Q15M PRN IV DECREASED GLUCOSE; Start 01/13/17 at 07:00 Dextrose (D50w Syringe) 50 ml Q15M PRN IV DECREASED GLUCOSE; Start 01/13/17 at 07:00 Glucagon (Glucagen) 1 mg Q15M PRN IM DECREASED GLUCOSE; Start 01/13/17 at 07:00 Glucose (Glutose) 15 gm Q15M PRN BUCCAL DECREASED GLUCOSE; Start 01/13/17 at 07 :00 Carvedilol 3.125 mg 3.125 mg BID NGT Last administered on 01/23/17 20:11; Admin Dose 3.125 MG; Start 01/13/17 at 09:00 Midazolam HCl 50 ml @ 1 mls/hr TITRATE IV Last administered on 9/29/17at 14:37 ; Admin Dose 3 MLS/HR; Start 01/14/17 at 12:00 Fentanyl (Sublimaze) 100 ml @ 2.5 mls/hr TITRATE IV Last administered on 21:51; Admin Dose 5 MLS/HR; Start 01/14/17 at 13:00 Nystatin (Nystatin Powder) 1 applic BID TOP Last administered on 01/24/17 09: 04; Admin Dose 1 APPLIC; Start 01/14/17 at 15:00 Furosemide (Lasix) 40 mg DAILY IV Last administered on 01/24/17 09:02; Admin Dose 40 MG; Start 01/18/17 at 09:00 Potassium Chloride (Potassium Chloride Pwd/Soln) 20 meq DAILY GTB Last administered on 01/24/17 09:02; Admin Dose 20 MEQ; Start 01/21/17 at 09:00 Docusate Sodium (Colace Liquid Cup) 100 mg BID GTB Last administered on 09:00; Admin Dose 100 MG; Start 01/23/17 at 10:00 Metoclopramide HCl (Reglan) 5 mg Q6H PRN IV VOMITTING Last administered on 01/24 09:01; Admin Dose 5 MG; Start 01/24/17 at 07:00 Sodium Biphosphate/ Sodium Phosphate (Fleet Enema) 133 ml DAILY PRN IA CONSTIPATION; Start 01/24/17 at 12:30 Bisacodyl (Dulcolax Supp) 10 mg ONCE ONCE IA ; Start 01/24/17 at 12:30; Stop 01/24/17 at 12:31 RADHA CAMACHO Jan 24, 2017 12:13
--- NOTE | 2017-01-24 12:24 | PN ---
DATE: 01/24/2017 SUBJECTIVE DATA: No events overnight. The patient is alert, follows commands. Comfortable on vent. She is getting CPAP trials. No fevers today. Temperature 98.2, pulse 80, respirations 16, blood pressure 104/54, saturation 100 on 30 percent FiO2. LABORATORY AND DIAGNOSTIC DATA: WBC 9.2, H and H 10.3 and 33.2, platelets 208, no shift. BUN 37, creatinine 1.11. DIAGNOSTICS: Chest x-ray from yesterday revealed small bilateral pleural effusions, left greater than right. INDWELLINGS: Endotracheal tube, NG tube, Sifuentes catheter, left subclavian triple-lumen catheter and right PleurX. ANTIMICROBIALS: The patient is on meropenem, fluconazole, oral nystatin, status post vancomycin. PHYSICAL EXAMINATION: GENERAL: This is a fragile, well-developed, elderly woman, who is awake, in no distress. HEENT: Head atraumatic, normocephalic. Sclerae anicteric. Buccal mucosa dry. NECK: Supple. CHEST: Rise symmetrical. Breath sounds diminished at the bases. HEART: S1, S2. ABDOMEN: Soft, bowel sounds present. EXTREMITIES: Without cyanosis. Trace edema. ASSESSMENT: 1. Resolving sepsis. 2. Healthcare-associated pneumonia. 3. Respiratory failure, reintubated. 4. Methicillin-resistant Staphylococcus aureus nares colonization. 5. Diabetes. 6. Dominga albicans urinary tract infection. 7. History of right PleurX catheter placement secondary to recurrent pleural effusions. 8. History of deep vein thrombosis. PLAN: The patient remains stable. We are going to discontinue her antibiotics and monitor her for repeat cultures p.r.n. Continue weaning trials as per Pulmonary team. Dictated By: Elvin Owusu NP /linette/randee /Document#: [id number]
[2017-01-24] MEDS ORDERED: BISACODYL 10 MG SUPP PR ONE (12:30)
[2017-01-24] MEDS ORDERED: NA PHOSPHATE/BIPHOS 133 ML ENEMA PR PRN (12:30)
[2017-01-24] MEDS: FENTAnyl (DRIP) 1000 mcg/100mL 100 ML IV SCH (12:38)
--- NOTE | 2017-01-24 14:16 | CONS ---
Date/Time of Note Date/Time of Note DATE: 01/24/17 TIME: 14:14 Consult Date/Type/Reason Admit Date/Time Jan 10, 2017 at 23:15 Initial Consult Date 01/11/17 Type of Consultation: cardiology Ordering Provider: AUBREE PALMA DO Subjective CARDIOLOGY/ critical care follow up note: S: D/W staff and rhythm was reviewed. pt remains in afib. HR has been under good control for the most part. BP is on low side but still stable off of pressors,. she is still on vent in ICU. failed weaning today again. pt is nonverbal. pt also with constipation her old records were extensively reviewed pt's EF was normal at 50-55% on 01/01/17 CVP checked today about 4-6 now O: gen: intubated on vent but appears in resp distress. HEENT: Pupils are equal NECK: no stridor. CV: irregularly irregular. systolic murmur Chest: s/p pelurodex right side GI: soft NT ND. no rebound. no guarding ext: + trace LE edema neuro: sedated but opens her eyes. Derm: multiple echymosis psych; calm now ECG reviewed: afib RVR. ant infarct. CXR reviewed ECHO 01/11/17reviewed personally: 1. Normal left ventricular cavity size. Normal left ventricular wall thickness. Severe left ventricular systolic dysfunction. Ejection fraction is visually estimated at 25 %. Multiple segmental wall motion abnormalities. 2. There is mild enlargement of left atrium. 3. Mild mitral leaflet calcification. Mild mitral annular calcification. Mild mitral valve regurgitation. 4. Aortic sclerosis without stenosis. Trace aortic valve regurgitation. 5. Normal appearance of the tricuspid valve. Estimated peak PA systolic pressure 53 mmHg. There is mild tricuspid regurgitation. 6. Inferior vena cava without respiratory collapse, however, patient on ventilator. ECHO 01/01/17: per review of old charts. EF 50-55%. LAE. MOD/ SEVERE MR. Objective Vital Signs Date Time Temp Pulse Resp B/P Pulse Ox O2 Delivery O2 Flow Rate FiO2 01/24/17 13:29 87 16 100 30 01/24/17 12:00 95.6 99/57 Mechanical Ventilator Intake and Output 01/23/17 01/23/17 01/24/17 15:00 23:00 07:00 Intake Total 355 ml 662 ml 96 ml Output Total 535 ml 430 ml 265 ml Balance -180 ml 232 ml -169 ml Results/Medications Result Diagram: 01/24/17 0445 01/24/17 0445 Results 24 hrs Laboratory Tests Test 01/23/17 17:01 01/23/17 20:13 01/24/17 00:56 01/24/17 04:44 Bedside Glucose 131 155 156 88 Test 01/24/17 04:45 01/24/17 09:10 01/24/17 12:18 White Blood Count 9.2 Red Blood Count 3.54 L Hemoglobin 10.3 L Hematocrit 33.2 L Mean Corpuscular Volume 93.8 Mean Corpuscular Hemoglobin 29.1 Mean Corpuscular Hemoglobin Concent 31.0 L Red Cell Distribution Width 15.3 H Platelet Count 208 Mean Platelet Volume 10.4 Neutrophils % 27.2 L Lymphocytes % 41.8 Monocytes % 27.0 H Eosinophils % 0.7 Basophils % 0.2 Nucleated Red Blood Cells % 0.0 Neutrophils # 2.5 Lymphocytes # 3.9 H Monocytes # 2.5 H Eosinophils # 0.1 Basophils # 0.0 Nucleated Red Blood Cells # 0.0 Sodium Level 139 Potassium Level 3.8 Chloride Level 99 Carbon Dioxide Level 33 H Anion Gap 11 Blood Urea Nitrogen 37 H Creatinine 1.11 H Glucose Level 103 Calcium Level 9.8 Phosphorus Level 4.1 Magnesium Level 2.2 Total Bilirubin 0.3 Direct Bilirubin 0.00 Indirect Bilirubin 0.3 Aspartate Amino Transf (AST/SGOT) 36 Alanine Aminotransferase (ALT/SGPT) 35 Alkaline Phosphatase 58 B-Type Natriuretic Peptide 3580 H Total Protein 6.2 Albumin 3.5 Globulin 2.70 Albumin/Globulin Ratio 1.29 Digoxin Level 0.5 L Bedside Glucose 118 141 Medications Current Medications Propofol (Diprivan) 100 ml @ 2.045 mls/ hr Q12H IV Last administered on 08:16; Admin Dose 10.227 MLS/HR; Start 01/11/17 at 01:30 Enoxaparin Sodium 70 mg 70 mg Q12 SC Last administered on 01/24/17 09:04; Admin Dose 70 MG; Start 01/11/17 at 12:30 Phenylephrine HCl/ Dextrose (Baudilio-Syneph/D5W) 250 ml @ 10 mls/hr TITRATE IV Last administered on 01/17/17 00:00; Admin Dose 7.5 MLS/HR; Start 01/12/17 at 06:00 Mupirocin (Bactroban) 1 applic BID TOP Last administered on 01/24/17 09:04; Admin Dose 1 APPLIC; Start 01/12/17 at 13:00 Morphine Sulfate (morphine) 1 mg Q4H PRN IV PAIN Last administered on 08:07; Admin Dose 1 MG; Start 01/12/17 at 19:00 Diagnostic Test (Pha) (Accu-Chek) 1 ea 02 XX Last administered on 01/22/17 02: 00; Admin Dose 1 EA; Start 01/14/17 at 02:00 Insulin Aspart (Novolog Insulin Pen) NOVOLOG *MILD* ALGORI... Q4 SC Last administered on 01/24/17 12:21; Admin Dose 1 UNIT; Start 01/13/17 at 09:00 Miscellaneous Information 1 ea NOTE XX ; Start 01/13/17 at 07:00 Glucose (Glutose) 15 gm Q15M PRN PO DECREASED GLUCOSE; Start 01/13/17 at 07:00 Glucose (Glutose) 22.5 gm Q15M PRN PO DECREASED GLUCOSE; Start 01/13/17 at 07: 00 Dextrose (D50w Syringe) 25 ml Q15M PRN IV DECREASED GLUCOSE; Start 01/13/17 at 07:00 Dextrose (D50w Syringe) 50 ml Q15M PRN IV DECREASED GLUCOSE; Start 01/13/17 at 07:00 Glucagon (Glucagen) 1 mg Q15M PRN IM DECREASED GLUCOSE; Start 01/13/17 at 07:00 Glucose (Glutose) 15 gm Q15M PRN BUCCAL DECREASED GLUCOSE; Start 01/13/17 at 07 :00 Carvedilol 3.125 mg 3.125 mg BID NGT Last administered on 01/23/17 20:11; Admin Dose 3.125 MG; Start 01/13/17 at 09:00 Midazolam HCl 50 ml @ 1 mls/hr TITRATE IV Last administered on 01/21/17 14:37 ; Admin Dose 3 MLS/HR; Start 01/14/17 at 12:00 Fentanyl (Sublimaze) 100 ml @ 2.5 mls/hr TITRATE IV Last administered on 12:38; Admin Dose 5 MLS/HR; Start 01/14/17 at 13:00 Nystatin (Nystatin Powder) 1 applic BID TOP Last administered on 01/24/17 09: 04; Admin Dose 1 APPLIC; Start 01/14/17 at 15:00 Furosemide (Lasix) 40 mg DAILY IV Last administered on 01/24/17 09:02; Admin Dose 40 MG; Start 01/18/17 at 09:00 Potassium Chloride (Potassium Chloride Pwd/Soln) 20 meq DAILY GTB Last administered on 01/24/17 09:02; Admin Dose 20 MEQ; Start 01/21/17 at 09:00 Docusate Sodium (Colace Liquid Cup) 100 mg BID GTB Last administered on 09:00; Admin Dose 100 MG; Start 01/23/17 at 10:00 Metoclopramide HCl (Reglan) 5 mg Q6H PRN IV VOMITTING Last administered on 01/24 09:01; Admin Dose 5 MG; Start 01/24/17 at 07:00 Sodium Biphosphate/ Sodium Phosphate (Fleet Enema) 133 ml DAILY PRN [place] CONSTIPATION; Start 01/24/17 at 12:30 Assessment/Plan Chief Complaint/Hosp Course 1. shock: cardiogenic and septic combination : BP has improved now 2. CHF: acute on chronic probably due to systolic and diastolic heart failure: currently stable and appears compensated. 3. acute hypoxemic/ hypercapnic resp failure: s/ p re-intubation now 4. Afib with RVR: HR is under much better control now 5. HX CAD 6/ HX PCI RCA 2009 7. HX HTN: now hypotensive 8. Electrolytes abnormalities. 9. hx CLL 10. ANEMIA 11. Lactic acidosis: resolved now. 12. dyslipidemia 13./ hx DVT ( treated with XARELTO at home). on lovenox here. 14. severe cardiomyopathy now with EF 20% (. EF was 50-55% on 01/01/17 per review of old records) REC: cont ICU care and vent support for now. PULM CONSULT input is greatly appreciated. weaning trial has failed so far unfortunately. will give dig prn. currently HR is under fair control. ECHO shows severe LV dysfunction now. will consider ischemic work up once/ if pt is more stable and extubated. coreg as tolerated. CONT ICU CARE. cont lasix. replace K prn s/p transfusion per hem/onc rec. will check stool OB thank you. CHINO MERCEDES MD FAC Problems: CHINO MERCEDES MD Jan 24, 2017 14:16
--- NOTE | 2017-01-24 18:54 | CONS ---
Date/Time of Note Date/Time of Note DATE: 01/24/17 TIME: 18:53 Assessment/Plan Assessment/Plan Chief Complaint/Hosp Course CLL- ON TREATMENT post chemo TREATMENT - ON HOLD ANEMIA MONITOR BLOOD COUNT CLOSELY OBSERVE FOR BLEEDING AND HEMOLYSIS STOOL OB -P TRANSFUSE PRBC NEEDED Respiratory failure. Septic shock. Acute decompensated heart failure. Nonoliguric acute kidney injury with unknown baseline creatinine. Etiology secondary to septic acute kidney injury, acute tubular necrosis. Mineral bone disorder. Diabetes. Continue Accu-Cheks and sliding scale. Coronary artery disease. Pulmonary hypertension. Pleural effusions with history of PleurX catheter, currently nonfunctional. Problems: Consultation Date/Type/Reason Admit Date/Time Jan 10, 2017 at 23:15 Initial Consult Date 01/11/17 Type of Consultation: [facility] Referring Provider: AUBREE PALMA DO 24 HR Interval Summary Free Text/Dictation all noted no new events Patient will need to have a tracheostomy and G-tube placed. on vent sedated Exam/Review of Systems Vital Signs Vitals Vital Signs Date Time Temp Pulse Resp B/P Pulse Ox O2 Delivery O2 Flow Rate FiO2 01/24/17 18:00 85 19 106/62 99 Mechanical Ventilator 01/24/17 17:01 30 01/24/17 16:00 98.5 Intake and Output 01/23/17 01/23/17 01/24/17 15:00 23:00 07:00 Intake Total 355 ml 662 ml 96 ml Output Total 535 ml 430 ml 265 ml Balance -180 ml 232 ml -169 ml Exam HEENT: Head is normocephalic. NECK: Supple. HEART: Regular rate. LUNGS: Diminished breath sounds at the base. ABDOMEN: Soft, nontender to palpation. No rebound or guarding. EXTREMITIES: Negative for clubbing, cyanosis. No edema. DERMATOLOGIC: No rashes. MUSCULOSKELETAL: No joint effusion. NEUROLOGIC: No change in exam. Results Result Diagram: 01/24/17 0445 01/24/17 0445 Results 24 hrs Laboratory Tests Test 01/23/17 20:13 01/24/17 00:56 01/24/17 04:44 01/24/17 04:45 Bedside Glucose 155 156 88 White Blood Count 9.2 Red Blood Count 3.54 L Hemoglobin 10.3 L Hematocrit 33.2 L Mean Corpuscular Volume 93.8 Mean Corpuscular Hemoglobin 29.1 Mean Corpuscular Hemoglobin Concent 31.0 L Red Cell Distribution Width 15.3 H Platelet Count 208 Mean Platelet Volume 10.4 Neutrophils % 27.2 L Lymphocytes % 41.8 Monocytes % 27.0 H Eosinophils % 0.7 Basophils % 0.2 Nucleated Red Blood Cells % 0.0 Neutrophils # 2.5 Lymphocytes # 3.9 H Monocytes # 2.5 H Eosinophils # 0.1 Basophils # 0.0 Nucleated Red Blood Cells # 0.0 Sodium Level 139 Potassium Level 3.8 Chloride Level 99 Carbon Dioxide Level 33 H Anion Gap 11 Blood Urea Nitrogen 37 H Creatinine 1.11 H Glucose Level 103 Calcium Level 9.8 Phosphorus Level 4.1 Magnesium Level 2.2 Total Bilirubin 0.3 Direct Bilirubin 0.00 Indirect Bilirubin 0.3 Aspartate Amino Transf (AST/SGOT) 36 Alanine Aminotransferase (ALT/SGPT) 35 Alkaline Phosphatase 58 B-Type Natriuretic Peptide 3580 H Total Protein 6.2 Albumin 3.5 Globulin 2.70 Albumin/Globulin Ratio 1.29 Digoxin Level 0.5 L Test 01/24/17 09:10 01/24/17 12:18 01/24/17 16:46 Bedside Glucose 118 141 154 Medications Medications Current Medications Propofol (Diprivan) 100 ml @ 2.045 mls/ hr Q12H IV Last administered on 08:16; Admin Dose 10.227 MLS/HR; Start 01/11/17 at 01:30 Enoxaparin Sodium 70 mg 70 mg Q12 SC Last administered on 01/24/17 09:04; Admin Dose 70 MG; Start 01/11/17 at 12:30 Phenylephrine HCl/ Dextrose (Baudilio-Syneph/D5W) 250 ml @ 10 mls/hr TITRATE IV Last administered on 01/17/17 00:00; Admin Dose 7.5 MLS/HR; Start 01/12/17 at 06:00 Mupirocin (Bactroban) 1 applic BID TOP Last administered on 01/24/17 09:04; Admin Dose 1 APPLIC; Start 01/12/17 at 13:00 Morphine Sulfate (morphine) 1 mg Q4H PRN IV PAIN Last administered on 08:07; Admin Dose 1 MG; Start 01/12/17 at 19:00 Diagnostic Test (Pha) (Accu-Chek) 1 ea 02 XX Last administered on 01/22/17 02: 00; Admin Dose 1 EA; Start 01/14/17 at 02:00 Insulin Aspart (Novolog Insulin Pen) NOVOLOG *MILD* ALGORI... Q4 SC Last administered on 01/24/17 16:49; Admin Dose 1 UNIT; Start 01/13/17 at 09:00 Miscellaneous Information 1 ea NOTE XX ; Start 01/13/17 at 07:00 Glucose (Glutose) 15 gm Q15M PRN PO DECREASED GLUCOSE; Start 01/13/17 at 07:00 Glucose (Glutose) 22.5 gm Q15M PRN PO DECREASED GLUCOSE; Start 01/13/17 at 07: 00 Dextrose (D50w Syringe) 25 ml Q15M PRN IV DECREASED GLUCOSE; Start 01/13/17 at 07:00 Dextrose (D50w Syringe) 50 ml Q15M PRN IV DECREASED GLUCOSE; Start 01/13/17 at 07:00 Glucagon (Glucagen) 1 mg Q15M PRN IM DECREASED GLUCOSE; Start 01/13/17 at 07:00 Glucose (Glutose) 15 gm Q15M PRN BUCCAL DECREASED GLUCOSE; Start 01/13/17 at 07 :00 Carvedilol 3.125 mg 3.125 mg BID NGT Last administered on 01/23/17 20:11; Admin Dose 3.125 MG; Start 01/13/17 at 09:00 Midazolam HCl 50 ml @ 1 mls/hr TITRATE IV Last administered on 01/21/17 14:37 ; Admin Dose 3 MLS/HR; Start 01/14/17 at 12:00 Fentanyl (Sublimaze) 100 ml @ 2.5 mls/hr TITRATE IV Last administered on 12:38; Admin Dose 5 MLS/HR; Start 01/14/17 at 13:00 Nystatin (Nystatin Powder) 1 applic BID TOP Last administered on 01/24/17 09: 04; Admin Dose 1 APPLIC; Start 01/14/17 at 15:00 Furosemide (Lasix) 40 mg DAILY IV Last administered on 01/24/17 09:02; Admin Dose 40 MG; Start 01/18/17 at 09:00 Potassium Chloride (Potassium Chloride Pwd/Soln) 20 meq DAILY GTB Last administered on 01/24/17 09:02; Admin Dose 20 MEQ; Start 01/21/17 at 09:00 Docusate Sodium (Colace Liquid Cup) 100 mg BID GTB Last administered on 09:00; Admin Dose 100 MG; Start 01/23/17 at 10:00 Metoclopramide HCl (Reglan) 5 mg Q6H PRN IV VOMITTING Last administered on 01/24 09:01; Admin Dose 5 MG; Start 01/24/17 at 07:00 Sodium Biphosphate/ Sodium Phosphate (Fleet Enema) 133 ml DAILY PRN [place] CONSTIPATION; Start 01/24/17 at 12:30 SE RAY MD Jan 24, 2017 18:54
[2017-01-24] MEDS: MIDAZOLAM (DRIP) 50 mg/50 mL 50 ML IV SCH (19:40)
[2017-01-25] VITALS (49 sets, daily range): BP systolic 75–116; BP diastolic 43–85; PULSE 70–94; RESP 0–25
[2017-01-25] MEDS: INSULIN ASPART [NOVOLOG] 3 ML PEN SC SCH ×6 (01:00→21:00)
[2017-01-25] MEDS: PROPOFOL 100 ML IV SCH ×2 (01:30→13:30)
[2017-01-25] MEDS: ACCU-CHEK XX SCH (02:00)
[2017-01-25 05:32] LABS: ABNORMAL IP MESSAGE 1; BASOPHILS % 0.3 % (0.0-2.0); EOSINOPHILS # 0.1 10^3/ul (0.0-0.5); EOSINOPHILS % 0.5 % (0.0-7.0); HEMATOCRIT 32.7 % (37.0-47.0); HEMOGLOBIN 9.9 g/dl (12.0-16.0); LYMPHOCYTES % 39.9 % (15.0-51.0); MEAN CORPUSCULAR HEMOGLOBIN 28.5 pg (29.0-33.0); MEAN CORPUSCULAR HGB CONC 30.3 g/dl (32.0-37.0); MEAN CORPUSCULAR VOLUME 94.2 fl (82.0-101.0); MONOCYTE # 2.8 10^3/ul (0.3-0.9); NEUTROPHIL # 2.8 10^3/ul (1.6-7.5); NEUTROPHILS % 27.8 % (39.0-77.0); PLATELET COUNT 196 10^3/UL (140-415); RED BLOOD COUNT 3.47 10^6/ul (4.20-5.40); RED CELL DISTRIBUTION WIDTH 15.7 % (11.5-14.5)
--- NOTE | 2017-01-25 05:36 | CONS ---
DATE OF ADMISSION: 01/10/2017 DATE OF CONSULTATION: 01/24/2017 REASON FOR CONSULTATION: Evaluation for possible tracheostomy. HISTORY OF PRESENT ILLNESS: This is a 81-year-old female admitted because of respiratory failure, shock, CHF, who has a history of coronary artery disease. The patient was intubated, unable to come off the ventilator secondary to multiple medical problems, as described above. PAST MEDICAL HISTORY: Hypertension, hyperlipidemia, coronary artery disease, leukemia, pleural effusion, pneumonia. PAST SURGICAL HISTORY: None. ALLERGIES: NONE. MEDICATIONS: List reviewed. SOCIAL HISTORY: No smoking, drinking or drug use. PHYSICAL EXAMINATION: VITAL SIGNS: Blood pressure is 105/55. Pulse is 92. Respirations are 83. Saturation is 99 percent. FiO2 30 percent. HEENT: Normocephalic, atraumatic. PERRLA. NECK: Supple. No JVD. No carotid bruits. CARDIOVASCULAR: Normal S1, S2. LUNGS: Clear. ABDOMEN: Soft. EXTREMITIES: Warm. IMPRESSION: Respiratory failure. RECOMMENDATIONS: We will proceed with placement of a tracheostomy. Discussed with the patient and the patient's nurse. All questions answered. Dictated By: Quincy Louie MD /linette/dorene /Document#: [id number]
[2017-01-25 05:56] LABS: CALCIUM 9.5 mg/dl (8.4-10.2); CREATININE 1.19 mg/dl (0.44-1.00); MAGNESIUM 2.3 mg/dl (1.7-2.5); PHOSPHORUS 4.6 mg/dl (2.5-4.9); POTASSIUM 3.7 mmol/L (3.5-5.1)
[2017-01-25 06:08] LABS: POSITIVE DIFF @See below
--- NOTE | 2017-01-25 08:12 | PN ---
DATE: 01/25/2017 SUBJECTIVE DATA: The patient has failed multiple weaning attempts. May require trach and PEG placement. I have attempted to contact the patient's daughter informing her that a trach and PEG may be necessary. No other acute events noted. OBJECTIVE DATA: VITAL SIGNS: Blood pressure 95/56, respirations 16, pulse 79, temperature 98.1. I's and O's patient has 1700 in and 1200 out. HEENT: Head is normocephalic. NECK: Supple. HEART: Regular rate. LUNGS: Diminished breath sounds at the base. ABDOMEN: Soft, nontender to palpation. No rebound or guarding. EXTREMITIES: Negative for clubbing, cyanosis. Trace edema. DERMATOLOGIC: Clean. No rashes. MUSCULOSKELETAL: No joint effusion. NEUROLOGIC: No change in exam. MEDICATIONS: Reviewed. LABORATORY AND DIAGNOSTIC DATA: Shows sodium 140, potassium 3.7, bicarb 32, BUN 38, creatinine 1.19. White count is 10.0, hemoglobin 9.9, hematocrit 32.7, platelet count is 196,000. Stool for OB is negative. ASSESSMENT AND PLAN: 1. Ventilatory-dependent respiratory failure. Patient's vent settings and ABGs reviewed. The patient has failed multiple weaning attempts. Continue weaning per Pulmonary. May require trach placement. 2. Sepsis status post shock. Continue current antifungal therapy. 3. Decompensated heart failure. Clinically improving. Continue diuretic regimen. 4. Nonoliguric acute kidney injury with unknown baseline creatinine. Etiology secondary to hemodynamic sepsis. Renal function has been stable. Continue current treatment plan. 5. Anemia monitor H and H levels. Follow up with Hematology. 6. Chronic lymphocytic leukemia. Continue to monitor. Follow up with Hematology. 7. Mineral bone disorder. Monitor calcium and phosphorus levels. 8. Diabetes. Continue Accu-Cheks and insulin sliding scale. 9. Coronary artery disease. Continue medical management. 10. Pulmonary hypertension. 11. Bilateral pleural effusion. 12. Lower extremity deep vein thrombosis. Continue current treatment plan. Continue Lovenox. 13. Encephalopathy. Etiology is toxic metabolic. 14. Gastrointestinal and deep venous thrombosis prophylaxis. Dictated By: Timo Mccracken DO /linette/mario /Document#: [id number]
[2017-01-25] MEDS: POTASSIUM CHLORIDE 20 MEQ POWDER FOR ORAL SOLN GTB SCH (08:37)
[2017-01-25] MEDS: BALSAM PERU/CASTOR OIL 60 GM TUBE TOP SCH ×2 (08:37→21:22)
[2017-01-25] MEDS: DOCUSATE SODIUM 10 MG/ML (10ML CUP) GTB SCH ×2 (08:37→21:16)
[2017-01-25] MEDS: FUROSEMIDE 40 MG INJ IV SCH (08:37)
[2017-01-25] MEDS: MUPIROCIN 2% 22 GM OINT TOP SCH ×2 (08:38→21:22)
[2017-01-25] MEDS: NYSTATIN 30 GM POWDER BTL TOP SCH ×2 (08:38→21:22)
[2017-01-25] MEDS: ENOXAPARIN 80 MG/0.8 ML SYG SC SCH ×2 (08:47→21:18)
[2017-01-25] MEDS: FENTAnyl (DRIP) 1000 mcg/100mL 100 ML IV SCH (10:53)
--- NOTE | 2017-01-25 11:23 | CONS ---
Date/Time of Note Date/Time of Note DATE: 01/25/17 TIME: 11:20 Assessment/Plan Assessment/Plan Chief Complaint/Hosp Course Consult dictated #[id number] Problems: Additional Assessment/Plan Data setting; AC of 16, tidal volume 400, PEEP of 5, 30% FiO2. Patient is currently on Versed 1 mg/h, fentanyl drip at 30 mics per hour. Assessment and recommendations; 1. Patient admitted with CHF exacerbation with superimposed pneumonia with marked radiological improvement. 2. History of chronic recurrent pleural effusion status post right Pleurx catheter placement in the past. There has been markedly clearance of pleural effusions. 3. History of chronic lymphocytic leukemia. 4. generalized deconditioning. 5. Failure to be weaned from ventilator despite numerous attempts. Continue current treatment. I did have a detailed discussion with the patient' s [id number] yesterday and apprised her that her [id number] will need tracheostomy and G-tube. The family has agreed. Cardiothoracic surgeon, Dr. Louie has been consulted. Will continue current supportive care. Consultation Date/Type/Reason Admit Date/Time Jan 10, 2017 at 23:15 Initial Consult Date 01/11/17 Type of Consultation: Pulmonary/critical care Referring Provider: AUBREE PALMA DO 24 HR Interval Summary Free Text/Dictation Patient condition remains critical. Has failed multiple weaning trials from ventilator. Despite being on sedation patient is completely awake and alert. Has remained hemodynamically stable. General exam; elderly woman, orally intubated, awake and alert. Currently in no distress. Exam/Review of Systems Vital Signs Vitals Vital Signs Date Time Temp Pulse Resp B/P Pulse Ox O2 Delivery O2 Flow Rate FiO2 01/25/17 09:00 91 16 116/61 100 Mechanical Ventilator 01/25/17 08:00 30 01/25/17 08:00 98.4 Intake and Output 01/24/17 01/24/17 01/25/17 15:00 23:00 07:00 Intake Total 620 ml 583.5 ml 574 ml Output Total 550 ml 450 ml 200 ml Balance 70 ml 133.5 ml 374 ml Exam HEENT exam; supple neck, positive JVD. Orally intubated. Patient is edentulous. Pupils are small bilaterally. No thyromegaly no neck masses. Chest exam; diminished but clear breath sounds. S1-S2 audible, no murmurs. Regular rhythm. There is a Pleurx catheter in the right lower lateral chest wall. Abdomen: Soft, nontender. No organomegaly. Bowel sounds audible. Extremity exam; no peripheral edema. FIRE BEHAVIOR ANALYST exam; patient is awake and follows very simple commands. Results Result Diagram: 01/25/17 0430 01/25/17 0430 Results 24 hrs Laboratory Tests Test 01/24/17 12:18 01/24/17 15:40 01/24/17 16:46 01/24/17 20:36 Bedside Glucose 141 154 133 Stool Occult Blood NEGATIVE Test 01/25/17 01:14 01/25/17 04:17 01/25/17 04:30 01/25/17 08:40 Bedside Glucose 119 96 114 White Blood Count 10.0 Red Blood Count 3.47 L Hemoglobin 9.9 L Hematocrit 32.7 L Mean Corpuscular Volume 94.2 Mean Corpuscular Hemoglobin 28.5 L Mean Corpuscular Hemoglobin Concent 30.3 L Red Cell Distribution Width 15.7 H Platelet Count 196 Mean Platelet Volume 11.0 H Neutrophils % 27.8 L Lymphocytes % 39.9 Monocytes % 28.0 H Eosinophils % 0.5 Basophils % 0.3 Nucleated Red Blood Cells % 0.0 Neutrophils # 2.8 Lymphocytes # 4.0 H Monocytes # 2.8 H Eosinophils # 0.1 Basophils # 0.0 Nucleated Red Blood Cells # 0.0 Sodium Level 140 Potassium Level 3.7 Chloride Level 100 Carbon Dioxide Level 32 H Anion Gap 12 Blood Urea Nitrogen 38 H Creatinine 1.19 H Glucose Level 107 Calcium Level 9.5 Phosphorus Level 4.6 Magnesium Level 2.3 Medications Medications Current Medications Propofol (Diprivan) 100 ml @ 2.045 mls/ hr Q12H IV Last administered on 08:16; Admin Dose 10.227 MLS/HR; Start 01/11/17 at 01:30 Enoxaparin Sodium 70 mg 70 mg Q12 SC Last administered on 01/25/17 08:47; Admin Dose 70 MG; Start 01/11/17 at 12:30 Phenylephrine HCl/ Dextrose (Baudilio-Syneph/D5W) 250 ml @ 10 mls/hr TITRATE IV Last administered on 01/17/17 00:00; Admin Dose 7.5 MLS/HR; Start 01/12/17 at 06:00 Mupirocin (Bactroban) 1 applic BID TOP Last administered on 01/25/17 08:38; Admin Dose 1 APPLIC; Start 01/12/17 at 13:00 Morphine Sulfate (morphine) 1 mg Q4H PRN IV PAIN Last administered on 08:07; Admin Dose 1 MG; Start 01/12/17 at 19:00 Diagnostic Test (Pha) (Accu-Chek) 1 ea 02 XX Last administered on 01/22/17 02: 00; Admin Dose 1 EA; Start 01/14/17 at 02:00 Insulin Aspart (Novolog Insulin Pen) NOVOLOG *MILD* ALGORI... Q4 SC Last administered on 01/24/17 16:49; Admin Dose 1 UNIT; Start 01/13/17 at 09:00 Miscellaneous Information 1 ea NOTE XX ; Start 01/13/17 at 07:00 Glucose (Glutose) 15 gm Q15M PRN PO DECREASED GLUCOSE; Start 01/13/17 at 07:00 Glucose (Glutose) 22.5 gm Q15M PRN PO DECREASED GLUCOSE; Start 01/13/17 at 07: 00 Dextrose (D50w Syringe) 25 ml Q15M PRN IV DECREASED GLUCOSE; Start 01/13/17 at 07:00 Dextrose (D50w Syringe) 50 ml Q15M PRN IV DECREASED GLUCOSE; Start 01/13/17 at 07:00 Glucagon (Glucagen) 1 mg Q15M PRN IM DECREASED GLUCOSE; Start 01/13/17 at 07:00 Glucose (Glutose) 15 gm Q15M PRN BUCCAL DECREASED GLUCOSE; Start 01/13/17 at 07 :00 Carvedilol 3.125 mg 3.125 mg BID NGT Last administered on 01/24/17 20:33; Admin Dose 3.125 MG; Start 01/13/17 at 09:00 Midazolam HCl 50 ml @ 1 mls/hr TITRATE IV Last administered on 01/24/17 19:40 ; Admin Dose 1 MLS/HR; Start 01/14/17 at 12:00 Fentanyl (Sublimaze) 100 ml @ 2.5 mls/hr TITRATE IV Last administered on 12:38; Admin Dose 5 MLS/HR; Start 01/14/17 at 13:00 Nystatin (Nystatin Powder) 1 applic BID TOP Last administered on 01/25/17 08: 38; Admin Dose 1 APPLIC; Start 01/14/17 at 15:00 Furosemide (Lasix) 40 mg DAILY IV Last administered on 01/25/17 08:37; Admin Dose 40 MG; Start 01/18/17 at 09:00 Potassium Chloride (Potassium Chloride Pwd/Soln) 20 meq DAILY GTB Last administered on 01/25/17 08:37; Admin Dose 20 MEQ; Start 01/21/17 at 09:00 Docusate Sodium (Colace Liquid Cup) 100 mg BID GTB Last administered on 08:37; Admin Dose 100 MG; Start 01/23/17 at 10:00 Metoclopramide HCl (Reglan) 5 mg Q6H PRN IV VOMITTING Last administered on 01/24 23:51; Admin Dose 5 MG; Start 01/24/17 at 07:00 Sodium Biphosphate/ Sodium Phosphate (Fleet Enema) 133 ml DAILY PRN [place] CONSTIPATION; Start 01/24/17 at 12:30 RADHA CAMACHO Jan 25, 2017 11:23
--- NOTE | 2017-01-25 13:31 | CONS ---
Date/Time of Note Date/Time of Note DATE: 01/25/17 TIME: 13:29 Consult Date/Type/Reason Admit Date/Time Jan 10, 2017 at 23:15 Initial Consult Date 01/11/17 Type of Consultation: CARDIOLOGY Ordering Provider: AUBREE PALMA DO Subjective CARDIOLOGY follow up note S: D/W staff and rhythm was reviewed. pt remains in afib. HR has been under good control for the most part. BP is on low side but still stable off of pressors,. she is still on vent in ICU. failed weaning today again. pt is nonverbal. d/w son and daughter in law extensively last night. her old records were extensively reviewed pt's EF was normal at 50-55% on 01/01/17 CVP checked today about 4-6 now O: gen: intubated on vent but appears in resp distress. HEENT: Pupils are equal NECK: no stridor. CV: irregularly irregular. systolic murmur Chest: s/p pelurodex right side GI: soft NT ND. no rebound. no guarding ext: + trace LE edema neuro: sedated but opens her eyes. Derm: multiple echymosis psych; calm now ECG reviewed: afib RVR. ant infarct. CXR reviewed ECHO 01/11/17reviewed personally: 1. Normal left ventricular cavity size. Normal left ventricular wall thickness. Severe left ventricular systolic dysfunction. Ejection fraction is visually estimated at 25 %. Multiple segmental wall motion abnormalities. 2. There is mild enlargement of left atrium. 3. Mild mitral leaflet calcification. Mild mitral annular calcification. Mild mitral valve regurgitation. 4. Aortic sclerosis without stenosis. Trace aortic valve regurgitation. 5. Normal appearance of the tricuspid valve. Estimated peak PA systolic pressure 53 mmHg. There is mild tricuspid regurgitation. 6. Inferior vena cava without respiratory collapse, however, patient on ventilator. ECHO 01/01/17: per review of old charts. EF 50-55%. LAE. MOD/ SEVERE MR. Objective Vital Signs Date Time Temp Pulse Resp B/P Pulse Ox O2 Delivery O2 Flow Rate FiO2 01/25/17 12:00 76 01/25/17 11:10 16 100 30 01/25/17 11:00 84/43 Mechanical Ventilator 01/25/17 08:00 98.4 Intake and Output 01/24/17 01/24/17 01/25/17 15:00 23:00 07:00 Intake Total 620 ml 583.5 ml 574 ml Output Total 550 ml 450 ml 200 ml Balance 70 ml 133.5 ml 374 ml Results/Medications Result Diagram: 01/25/17 0430 01/25/17 0430 Results 24 hrs Laboratory Tests Test 01/24/17 15:40 01/24/17 16:46 01/24/17 20:36 01/25/17 01:14 Stool Occult Blood NEGATIVE Bedside Glucose 154 133 119 Test 01/25/17 04:17 01/25/17 04:30 01/25/17 08:40 01/25/17 12:48 Bedside Glucose 96 114 124 White Blood Count 10.0 Red Blood Count 3.47 L Hemoglobin 9.9 L Hematocrit 32.7 L Mean Corpuscular Volume 94.2 Mean Corpuscular Hemoglobin 28.5 L Mean Corpuscular Hemoglobin Concent 30.3 L Red Cell Distribution Width 15.7 H Platelet Count 196 Mean Platelet Volume 11.0 H Neutrophils % 27.8 L Lymphocytes % 39.9 Monocytes % 28.0 H Eosinophils % 0.5 Basophils % 0.3 Nucleated Red Blood Cells % 0.0 Neutrophils # 2.8 Lymphocytes # 4.0 H Monocytes # 2.8 H Eosinophils # 0.1 Basophils # 0.0 Nucleated Red Blood Cells # 0.0 Sodium Level 140 Potassium Level 3.7 Chloride Level 100 Carbon Dioxide Level 32 H Anion Gap 12 Blood Urea Nitrogen 38 H Creatinine 1.19 H Glucose Level 107 Calcium Level 9.5 Phosphorus Level 4.6 Magnesium Level 2.3 Medications Current Medications Propofol (Diprivan) 100 ml @ 2.045 mls/ hr Q12H IV Last administered on 08:16; Admin Dose 10.227 MLS/HR; Start 01/11/17 at 01:30 Enoxaparin Sodium 70 mg 70 mg Q12 SC Last administered on 01/25/17 08:47; Admin Dose 70 MG; Start 01/11/17 at 12:30 Phenylephrine HCl/ Dextrose (Baudilio-Syneph/D5W) 250 ml @ 10 mls/hr TITRATE IV Last administered on 01/17/17 00:00; Admin Dose 7.5 MLS/HR; Start 01/12/17 at 06:00 Mupirocin (Bactroban) 1 applic BID TOP Last administered on 01/25/17 08:38; Admin Dose 1 APPLIC; Start 01/12/17 at 13:00 Morphine Sulfate (morphine) 1 mg Q4H PRN IV PAIN Last administered on 08:07; Admin Dose 1 MG; Start 01/12/17 at 19:00 Diagnostic Test (Pha) (Accu-Chek) 1 ea 02 XX Last administered on 01/22/17 02: 00; Admin Dose 1 EA; Start 01/14/17 at 02:00 Insulin Aspart (Novolog Insulin Pen) NOVOLOG *MILD* ALGORI... Q4 SC Last administered on 01/24/17 16:49; Admin Dose 1 UNIT; Start 01/13/17 at 09:00 Miscellaneous Information 1 ea NOTE XX ; Start 01/13/17 at 07:00 Glucose (Glutose) 15 gm Q15M PRN PO DECREASED GLUCOSE; Start 01/13/17 at 07:00 Glucose (Glutose) 22.5 gm Q15M PRN PO DECREASED GLUCOSE; Start 01/13/17 at 07: 00 Dextrose (D50w Syringe) 25 ml Q15M PRN IV DECREASED GLUCOSE; Start 01/13/17 at 07:00 Dextrose (D50w Syringe) 50 ml Q15M PRN IV DECREASED GLUCOSE; Start 01/13/17 at 07:00 Glucagon (Glucagen) 1 mg Q15M PRN IM DECREASED GLUCOSE; Start 01/13/17 at 07:00 Glucose (Glutose) 15 gm Q15M PRN BUCCAL DECREASED GLUCOSE; Start 01/13/17 at 07 :00 Carvedilol 3.125 mg 3.125 mg BID NGT Last administered on 01/24/17 20:33; Admin Dose 3.125 MG; Start 01/13/17 at 09:00 Midazolam HCl 50 ml @ 1 mls/hr TITRATE IV Last administered on 01/24/17 19:40 ; Admin Dose 1 MLS/HR; Start 01/14/17 at 12:00 Fentanyl (Sublimaze) 100 ml @ 2.5 mls/hr TITRATE IV Last administered on 10:53; Admin Dose 3 MLS/HR; Start 01/14/17 at 13:00 Nystatin (Nystatin Powder) 1 applic BID TOP Last administered on 01/25/17 08: 38; Admin Dose 1 APPLIC; Start 01/14/17 at 15:00 Furosemide (Lasix) 40 mg DAILY IV Last administered on 01/25/17 08:37; Admin Dose 40 MG; Start 01/18/17 at 09:00 Potassium Chloride (Potassium Chloride Pwd/Soln) 20 meq DAILY GTB Last administered on 01/25/17 08:37; Admin Dose 20 MEQ; Start 01/21/17 at 09:00 Docusate Sodium (Colace Liquid Cup) 100 mg BID GTB Last administered on 08:37; Admin Dose 100 MG; Start 01/23/17 at 10:00 Metoclopramide HCl (Reglan) 5 mg Q6H PRN IV VOMITTING Last administered on 01/24 23:51; Admin Dose 5 MG; Start 01/24/17 at 07:00 Sodium Biphosphate/ Sodium Phosphate (Fleet Enema) 133 ml DAILY PRN [place] CONSTIPATION; Start 01/24/17 at 12:30 Assessment/Plan Chief Complaint/Hosp Course 1. shock: cardiogenic and septic combination : BP has improved now 2. CHF: acute on chronic probably due to systolic and diastolic heart failure: currently stable and appears compensated. 3. acute hypoxemic/ hypercapnic resp failure: s/ p re-intubation now 4. Afib with RVR: HR is under much better control now 5. HX CAD 6/ HX PCI RCA 2009 7. HX HTN: now hypotensive 8. Electrolytes abnormalities. 9. hx CLL 10. ANEMIA 11. Lactic acidosis: resolved now. 12. dyslipidemia 13./ hx DVT ( treated with XARELTO at home). on lovenox here. 14. severe cardiomyopathy now with EF 20% (. EF was 50-55% on 01/01/17 per review of old records) REC: cont ICU care and vent support for now. PULM CONSULT input is greatly appreciated. weaning trial has failed so far unfortunately. awaiting trach. will give dig prn. currently HR is under fair control. ECHO shows severe LV dysfunction now. will consider ischemic work up once/ if pt is more stable and extubated. coreg as tolerated. CONT ICU CARE. s/p transfusion per hem/onc rec. stool OB is negative. thank you. CHINO MERCEDES MD [facility] Problems: CHINO MERCEDES MD Jan 25, 2017 13:31
--- NOTE | 2017-01-25 15:20 | PN ---
DATE: 01/25/2017 SUBJECTIVE DATA: No acute changes. The patient is intubated, lying comfortably in bed. No fevers. Temperature 98.4, pulse 78, respirations 16, blood pressure 84/43. Saturation 100 on 30 FiO2. WBC 10. H and H 9.9 and 32.7, platelets 196,000. BUN 38, creatinine 1.19. INDWELLINGS: Endotracheal tube, NG-tube, left IJ triple lumen catheter. Right-sided PleurX catheter, Sifuentes catheter. PHYSICAL EXAMINATION: GENERAL: This is a well-developed, well-nourished, and elderly woman who is intubated, sedated and in no distress. HEENT: Head atraumatic, normocephalic. Sclerae anicteric. Buccal mucosa dry. NECK: Supple. CHEST: Rise symmetrical. Breath sounds diminished at the bases. HEART: S1, S2. ABDOMEN: Soft, bowel sounds present. EXTREMITIES: Without cyanosis. ASSESSMENT: 1. Resolving sepsis status post-shock. 2. Status post-congestive heart failure exacerbation. 3. Acute respiratory failure, failed weaning trials. 4. Status post-pneumonia. Crawling chronic lymphocytic leukemia. 5. History of right PleurX catheter placement secondary to recurrent pleural effusions. 6. Diabetes. 7. Methicillin-resistant Staphylococcus aureus nares colonization. 8. History of deep vein thrombosis. PLAN: The patient is hemodynamically stable. Off antibiotics since yesterday, completed treatment for pneumonia pending trach PEG. Dictated By: Elvin Owusu NP /linette/maxine /Document#: [id number]
[2017-01-25] MEDS ORDERED: SOD CHLORIDE 0.9% 500 ML IV ONE (16:00)
--- NOTE | 2017-01-25 20:04 | CONS ---
Date/Time of Note Date/Time of Note DATE: 01/25/17 TIME: 19:59 Assessment/Plan Assessment/Plan Chief Complaint/Hosp Course CLL- ON TREATMENT post chemo TREATMENT - ON HOLD ANEMIA MONITOR BLOOD COUNT CLOSELY OBSERVE FOR BLEEDING AND HEMOLYSIS STOOL OB -P TRANSFUSE PRBC NEEDED Respiratory failure. PLAN - TRACH Septic shock. Acute decompensated heart failure. Nonoliguric acute kidney injury with unknown baseline creatinine. Etiology secondary to septic acute kidney injury, acute tubular necrosis. Mineral bone disorder. Diabetes. Continue Accu-Cheks and sliding scale. Coronary artery disease. Pulmonary hypertension. Pleural effusions with history of PleurX catheter, currently nonfunctional. Problems: Consultation Date/Type/Reason Admit Date/Time Jan 10, 2017 at 23:15 Initial Consult Date 01/11/17 Type of Consultation: [facility] Referring Provider: AUBREE PALMA DO 24 HR Interval Summary Free Text/Dictation all noted plan- trach on vent in A FIB Exam/Review of Systems Vital Signs Vitals Vital Signs Date Time Temp Pulse Resp B/P Pulse Ox O2 Delivery O2 Flow Rate FiO2 01/25/17 18:00 80 16 92/58 100 Mechanical Ventilator 01/25/17 17:10 30 01/25/17 16:00 98.6 Intake and Output 01/24/17 01/24/17 01/25/17 15:00 23:00 07:00 Intake Total 620 ml 583.5 ml 574 ml Output Total 550 ml 450 ml 200 ml Balance 70 ml 133.5 ml 374 ml Exam HEENT: Head is normocephalic. NECK: Supple. HEART: Regular rate. LUNGS: Diminished breath sounds at the base. ABDOMEN: Soft, nontender to palpation. No rebound or guarding. EXTREMITIES: Negative for clubbing, cyanosis. No edema. DERMATOLOGIC: No rashes. MUSCULOSKELETAL: No joint effusion. NEUROLOGIC: No change in exam. Results Result Diagram: 01/25/1742901/25/17429 Results 24 hrs Laboratory Tests Test 01/24/17 20:36 01/25/17 01:14 01/25/17 04:17 01/25/17 04:30 Bedside Glucose 133 119 96 White Blood Count 10.0 Red Blood Count 3.47 L Hemoglobin 9.9 L Hematocrit 32.7 L Mean Corpuscular Volume 94.2 Mean Corpuscular Hemoglobin 28.5 L Mean Corpuscular Hemoglobin Concent 30.3 L Red Cell Distribution Width 15.7 H Platelet Count 196 Mean Platelet Volume 11.0 H Neutrophils % 27.8 L Lymphocytes % 39.9 Monocytes % 28.0 H Eosinophils % 0.5 Basophils % 0.3 Nucleated Red Blood Cells % 0.0 Neutrophils # 2.8 Lymphocytes # 4.0 H Monocytes # 2.8 H Eosinophils # 0.1 Basophils # 0.0 Nucleated Red Blood Cells # 0.0 Sodium Level 140 Potassium Level 3.7 Chloride Level 100 Carbon Dioxide Level 32 H Anion Gap 12 Blood Urea Nitrogen 38 H Creatinine 1.19 H Glucose Level 107 Calcium Level 9.5 Phosphorus Level 4.6 Magnesium Level 2.3 Test 01/25/17 08:40 01/25/17 12:48 01/25/17 16:41 Bedside Glucose 114 124 130 Medications Medications Current Medications Propofol (Diprivan) 100 ml @ 2.045 mls/ hr Q12H IV Last administered on 08:16; Admin Dose 10.227 MLS/HR; Start 01/11/17 at 01:30 Enoxaparin Sodium 70 mg 70 mg Q12 SC Last administered on 01/25/17 08:47; Admin Dose 70 MG; Start 01/11/17 at 12:30 Phenylephrine HCl/ Dextrose (Baudilio-Syneph/D5W) 250 ml @ 10 mls/hr TITRATE IV Last administered on 01/17/17 00:00; Admin Dose 7.5 MLS/HR; Start 01/12/17 at 06:00 Mupirocin (Bactroban) 1 applic BID TOP Last administered on 01/25/17 08:38; Admin Dose 1 APPLIC; Start 01/12/17 at 13:00 Morphine Sulfate (morphine) 1 mg Q4H PRN IV PAIN Last administered on 08:07; Admin Dose 1 MG; Start 01/12/17 at 19:00 Diagnostic Test (Pha) (Accu-Chek) 1 ea 02 XX Last administered on 01/22/17 02: 00; Admin Dose 1 EA; Start 01/14/17 at 02:00 Insulin Aspart (Novolog Insulin Pen) NOVOLOG *MILD* ALGORI... Q4 SC Last administered on 01/24/17 16:49; Admin Dose 1 UNIT; Start 01/13/17 at 09:00 Miscellaneous Information 1 ea NOTE XX ; Start 01/13/17 at 07:00 Glucose (Glutose) 15 gm Q15M PRN PO DECREASED GLUCOSE; Start 01/13/17 at 07:00 Glucose (Glutose) 22.5 gm Q15M PRN PO DECREASED GLUCOSE; Start 01/13/17 at 07: 00 Dextrose (D50w Syringe) 25 ml Q15M PRN IV DECREASED GLUCOSE; Start 01/13/17 at 07:00 Dextrose (D50w Syringe) 50 ml Q15M PRN IV DECREASED GLUCOSE; Start 01/13/17 at 07:00 Glucagon (Glucagen) 1 mg Q15M PRN IM DECREASED GLUCOSE; Start 01/13/17 at 07:00 Glucose (Glutose) 15 gm Q15M PRN BUCCAL DECREASED GLUCOSE; Start 01/13/17 at 07 :00 Carvedilol 3.125 mg 3.125 mg BID NGT Last administered on 01/24/17 20:33; Admin Dose 3.125 MG; Start 01/13/17 at 09:00 Midazolam HCl 50 ml @ 1 mls/hr TITRATE IV Last administered on 01/24/17 19:40 ; Admin Dose 1 MLS/HR; Start 01/14/17 at 12:00 Fentanyl (Sublimaze) 100 ml @ 2.5 mls/hr TITRATE IV Last administered on 10:53; Admin Dose 3 MLS/HR; Start 01/14/17 at 13:00 Nystatin (Nystatin Powder) 1 applic BID TOP Last administered on 01/25/17 08: 38; Admin Dose 1 APPLIC; Start 01/14/17 at 15:00 Furosemide (Lasix) 40 mg DAILY IV Last administered on 01/25/17 08:37; Admin Dose 40 MG; Start 01/18/17 at 09:00; Status Future Hold Potassium Chloride (Potassium Chloride Pwd/Soln) 20 meq DAILY GTB Last administered on 01/25/17 08:37; Admin Dose 20 MEQ; Start 01/21/17 at 09:00 Docusate Sodium (Colace Liquid Cup) 100 mg BID GTB Last administered on 08:37; Admin Dose 100 MG; Start 01/23/17 at 10:00 Metoclopramide HCl (Reglan) 5 mg Q6H PRN IV VOMITTING Last administered on 01/24t 23:51; Admin Dose 5 MG; Start 01/24/17 at 07:00 Sodium Biphosphate/ Sodium Phosphate (Fleet Enema) 133 ml DAILY PRN [place] CONSTIPATION; Start 01/24/17 at 12:30 SE RAY MD Jan 25, 2017 20:04
--- NOTE | 2017-01-25 20:09 | PN ---
Date/Time of Note Date/Time of Note DATE: 01/25/17 TIME: 20:08 Assessment/Plan Lines/Catheters IV Catheter Type (from Nrsg): Central Line Sifuentes in Place (from Nrsg): Yes Assessment/Plan Chief Complaint/Hosp Course IMPRESSION: Respiratory failure. RECOMMENDATIONS: We will proceed with placement of a tracheostomy. plan for surgery Problems: Subjective 24 Hr Interval Summary Constitutional: improved Pain Control: mild Exam/Review of Systems Vital Signs Vitals Vital Signs Date Time Temp Pulse Resp B/P Pulse Ox O2 Delivery O2 Flow Rate FiO2 01/25/17 18:00 80 16 92/58 100 Mechanical Ventilator 01/25/17 17:10 30 01/25/17 16:00 98.6 Intake and Output 01/24/17 01/24/17 01/25/17 15:00 23:00 07:00 Intake Total 620 ml 583.5 ml 574 ml Output Total 550 ml 450 ml 200 ml Balance 70 ml 133.5 ml 374 ml Exam ENMT: mucosa pink and moist, nl external ears & nose, nl lips & teeth, nl nasal mucosa & septum Neck: non-tender, supple Respiratory: clear to auscultation, normal air movement Cardiovascular: nl pulses, regular rate and rhythm Results Result Diagram: 01/25/1742901/25/17429 DAVID KELLER MD Jan 25, 2017 20:09
[2017-01-25] MEDS: MIDAZOLAM (DRIP) 50 mg/50 mL 50 ML IV SCH (23:53)
[2017-01-26] VITALS (52 sets, daily range): BP systolic 60–124; BP diastolic 38–83; PULSE 65–113; RESP 0–31
[2017-01-26] MEDS: INSULIN ASPART [NOVOLOG] 3 ML PEN SC SCH ×6 (01:00→23:10)
[2017-01-26] MEDS: ACCU-CHEK XX SCH (02:00)
[2017-01-26 05:20] LABS: ABNORMAL IP MESSAGE 1; HEMATOCRIT 32.3 % (37.0-47.0); HEMOGLOBIN 10.3 g/dl (12.0-16.0); MEAN CORPUSCULAR HEMOGLOBIN 29.6 pg (29.0-33.0); MEAN CORPUSCULAR HGB CONC 31.9 g/dl (32.0-37.0); MEAN CORPUSCULAR VOLUME 92.8 fl (82.0-101.0); MEAN PLATELET VOLUME 11.2 fl (7.4-10.4); PLATELET COUNT 197 10^3/UL (140-415); RED BLOOD COUNT 3.48 10^6/ul (4.20-5.40); RED CELL DISTRIBUTION WIDTH 15.3 % (11.5-14.5); WHITE BLOOD COUNT 9.4 10^3/ul (4.8-10.8)
[2017-01-26 05:41] LABS: CALCIUM 9.7 mg/dl (8.4-10.2); CREATININE 1.16 mg/dl (0.44-1.00); MAGNESIUM 2.2 mg/dl (1.7-2.5); PHOSPHORUS 3.7 mg/dl (2.5-4.9); POTASSIUM 3.5 mmol/L (3.5-5.1)
[2017-01-26 05:55] LABS: POSITIVE DIFF @See below
[2017-01-26 07:36] LABS: ANISOCYTOSIS 1+ (0-0); MICROCYTOSIS 1+ (0-0); MONOCYTES % (M) 6 % (0-11); PLATELET ESTIMATE NORMAL; POIKILOCYTOSIS 2+ (0-0); POLYCHROMASIA 1+ (0-0); REACTIVE LYMPHOCYTES% (M) 8 % (0-0)
--- NOTE | 2017-01-26 07:39 | CONS ---
Date/Time of Note Date/Time of Note DATE: 01/26/17 TIME: 07:37 Consult Date/Type/Reason Admit Date/Time Jan 10, 2017 at 23:15 Initial Consult Date 01/11/17 Type of Consultation: cardiology Ordering Provider: AUBREE PALMA DO Subjective CARDIOLOGY follow up note S: D/W staff and rhythm was reviewed. pt remains in afib. HR has been under good control for the most part. intermittently elevated BP is on low side but still stable off of pressors,. she is still on vent in ICU. pt is nonverbal. her old records were extensively reviewed pt's EF was normal at 50-55% on 01/01/17 O: gen: intubated on vent HEENT: Pupils are equal NECK: no stridor. CV: irregularly irregular. systolic murmur pulm: + mild rhonchi. diffuse. Chest: s/p plurodex right side GI: soft NT ND. no rebound. no guarding ext: + trace LE edema neuro: awake and follows commands. Derm: multiple echymosis psych; anxious ECG reviewed: afib RVR. ant infarct. ECHO 01/11/17reviewed personally: 1. Normal left ventricular cavity size. Normal left ventricular wall thickness. Severe left ventricular systolic dysfunction. Ejection fraction is visually estimated at 25 %. Multiple segmental wall motion abnormalities. 2. There is mild enlargement of left atrium. 3. Mild mitral leaflet calcification. Mild mitral annular calcification. Mild mitral valve regurgitation. 4. Aortic sclerosis without stenosis. Trace aortic valve regurgitation. 5. Normal appearance of the tricuspid valve. Estimated peak PA systolic pressure 53 mmHg. There is mild tricuspid regurgitation. 6. Inferior vena cava without respiratory collapse, however, patient on ventilator. ECHO 01/01/17: per review of old charts. EF 50-55%. LAE. MOD/ SEVERE MR. Objective Vital Signs Date Time Temp Pulse Resp B/P Pulse Ox O2 Delivery O2 Flow Rate FiO2 01/26/17 04:55 85 30 100 30 01/26/17 03:30 100/68 01/26/17 00:00 98.3 Mechanical Ventilator Intake and Output 01/25/17 01/25/17 01/26/17 15:00 23:00 07:00 Intake Total 592 ml 1092 ml 548 ml Output Total 400 ml 425 ml 450 ml Balance 192 ml 667 ml 98 ml Results/Medications Result Diagram: 01/26/17 0415 01/26/17 0415 Results 24 hrs Laboratory Tests Test 01/25/17 08:40 01/25/17 12:48 01/25/17 16:41 01/25/17 20:18 Bedside Glucose 114 124 130 138 Test 01/26/17 01:07 01/26/17 04:15 01/26/17 05:21 Bedside Glucose 114 137 White Blood Count 9.4 Red Blood Count 3.48 L Hemoglobin 10.3 L Hematocrit 32.3 L Mean Corpuscular Volume 92.8 Mean Corpuscular Hemoglobin 29.6 Mean Corpuscular Hemoglobin Concent 31.9 L Red Cell Distribution Width 15.3 H Platelet Count 197 Mean Platelet Volume 11.2 H Neutrophils % Segmented Neutrophils % (Manual) 16 L Band Neutrophils % (Manual) 3 Lymphocytes % Lymphocytes % (Manual) 67 H Reactive Lymphocytes % (Manual) 8 H Monocytes % Monocytes % (Manual) 6 Eosinophils % Basophils % Nucleated Red Blood Cells % 0.0 Neutrophils # Neutrophils # (Manual) 1.5 L Band Neutrophils # 0.2 Absolute Lymphocytes (Manual) 6.2 H Lymphocytes # Reactive Lymphocytes # 0.7 H Monocytes # Absolute Monocytes (Manual) 0.5 Eosinophils # Basophils # Nucleated Red Blood Cells # Platelet Estimate NORMAL Polychromasia 1+ Poikilocytosis 2+ Anisocytosis 1+ Microcytosis 1+ Sodium Level 137 Potassium Level 3.5 Chloride Level 98 Carbon Dioxide Level 30 Anion Gap 13 Blood Urea Nitrogen 39 H Creatinine 1.16 H Glucose Level 120 Calcium Level 9.7 Phosphorus Level 3.7 Magnesium Level 2.2 Medications Current Medications Propofol (Diprivan) 100 ml @ 2.045 mls/ hr Q12H IV Last administered on 08:16; Admin Dose 10.227 MLS/HR; Start 01/11/17 at 01:30 Enoxaparin Sodium 70 mg 70 mg Q12 SC Last administered on 01/25/17 21:18; Admin Dose 70 MG; Start 01/11/17 at 12:30 Phenylephrine HCl/ Dextrose (Baudilio-Syneph/D5W) 250 ml @ 10 mls/hr TITRATE IV Last administered on 01/17/17 00:00; Admin Dose 7.5 MLS/HR; Start 01/12/17 at 06:00 Mupirocin (Bactroban) 1 applic BID TOP Last administered on 01/25/17 21:22; Admin Dose 1 APPLIC; Start 01/12/17 at 13:00 Morphine Sulfate (morphine) 1 mg Q4H PRN IV PAIN Last administered on 08:07; Admin Dose 1 MG; Start 01/12/17 at 19:00 Diagnostic Test (Pha) (Accu-Chek) 1 ea 02 XX Last administered on 01/22/17 02: 00; Admin Dose 1 EA; Start 01/14/17 at 02:00 Insulin Aspart (Novolog Insulin Pen) NOVOLOG *MILD* ALGORI... Q4 SC Last administered on 01/24/17 16:49; Admin Dose 1 UNIT; Start 01/13/17 at 09:00 Miscellaneous Information 1 ea NOTE XX ; Start 01/13/17 at 07:00 Glucose (Glutose) 15 gm Q15M PRN PO DECREASED GLUCOSE; Start 01/13/17 at 07:00 Glucose (Glutose) 22.5 gm Q15M PRN PO DECREASED GLUCOSE; Start 01/13/17 at 07: 00 Dextrose (D50w Syringe) 25 ml Q15M PRN IV DECREASED GLUCOSE; Start 01/13/17 at 07:00 Dextrose (D50w Syringe) 50 ml Q15M PRN IV DECREASED GLUCOSE; Start 01/13/17 at 07:00 Glucagon (Glucagen) 1 mg Q15M PRN IM DECREASED GLUCOSE; Start 01/13/17 at 07:00 Glucose (Glutose) 15 gm Q15M PRN BUCCAL DECREASED GLUCOSE; Start 01/13/17 at 07 :00 Carvedilol 3.125 mg 3.125 mg BID NGT Last administered on 01/24/17 20:33; Admin Dose 3.125 MG; Start 01/13/17 at 09:00 Midazolam HCl 50 ml @ 1 mls/hr TITRATE IV Last administered on 01/25/17 23:53 ; Admin Dose 1 MLS/HR; Start 01/14/17 at 12:00 Fentanyl (Sublimaze) 100 ml @ 2.5 mls/hr TITRATE IV Last administered on 10:53; Admin Dose 3 MLS/HR; Start 01/14/17 at 13:00 Nystatin (Nystatin Powder) 1 applic BID TOP Last administered on 01/25/17 21: 22; Admin Dose 1 APPLIC; Start 01/14/17 at 15:00 Furosemide (Lasix) 40 mg DAILY IV Last administered on 01/25/17 08:37; Admin Dose 40 MG; Start 01/18/17 at 09:00; Status Future Hold Potassium Chloride (Potassium Chloride Pwd/Soln) 20 meq DAILY GTB Last administered on 01/25/17 08:37; Admin Dose 20 MEQ; Start 01/21/17 at 09:00 Docusate Sodium (Colace Liquid Cup) 100 mg BID GTB Last administered on 21:16; Admin Dose 100 MG; Start 01/23/17 at 10:00 Metoclopramide HCl (Reglan) 5 mg Q6H PRN IV VOMITTING Last administered on 01/24 23:51; Admin Dose 5 MG; Start 01/24/17 at 07:00 Sodium Biphosphate/ Sodium Phosphate (Fleet Enema) 133 ml DAILY PRN [place] CONSTIPATION; Start 01/24/17 at 12:30 Assessment/Plan Chief Complaint/Hosp Course 1. shock: cardiogenic and septic combination : BP has improved now 2. CHF: acute on chronic probably due to systolic and diastolic heart failure: currently stable and appears compensated. 3. acute hypoxemic/ hypercapnic resp failure: s/ p re-intubation now 4. Afib with RVR: HR is under much better control now 5. HX CAD 6/ HX PCI RCA 2009 7. HX HTN: now hypotensive 8. Electrolytes abnormalities. 9. hx CLL 10. ANEMIA 11. Lactic acidosis: resolved now. 12. dyslipidemia 13./ hx DVT ( treated with XARELTO at home). on lovenox here. 14. severe cardiomyopathy now with EF 20% (. EF was 50-55% on 01/01/17 per review of old records) REC: cont ICU care and vent support for now. PULM CONSULT input is greatly appreciated. weaning trial has failed so far unfortunately. awaiting trach. will give dig prn. currently HR is under fair control. ECHO shows severe LV dysfunction now. will consider ischemic work up once/ if pt is more stable and extubated. coreg as tolerated. CONT ICU CARE. s/p transfusion per hem/onc rec. stool OB is negative so far, cont anticoagulation, to be held prior to trach. thank you. CHINO MERCEDES MD [facility] Problems: CHINO MERCEDES MD Jan 26, 2017 07:39
[2017-01-26] MEDS ORDERED: DIGOXIN 500 MCG INJ IV ONE (08:00)
[2017-01-26] MEDS: PROPOFOL 100 ML IV SCH ×2 (08:14→12:26)
--- NOTE | 2017-01-26 08:29 | RADRPT ---
PROCEDURE: XR Chest. CLINICAL INDICATION: Shortness of breath. TECHNIQUE: Single frontal view. COMPARISON: 01/23/2017. FINDINGS: The endotracheal tube, nasogastric tube, and left internal jugular vein catheter remain in satisfact ory position. There is atelectasis at the lung bases and a right chest tube, unchanged. There is a s mall right pleural effusion. There is no left pleural effusion. The heart is enlarged. There is calcification in the aorta consistent with atherosclerosis. There is no pneumothorax. IMPRESSION: 1. No change from 01/23/2017. RPTAT: QQ .Noe Aragon MD, MD Date Time Electronically viewed and signed by .Noe Aragon MD, on 01/26/2017 08:29 .R/
[2017-01-26] MEDS: FUROSEMIDE 20 MG TAB NGT SCH (09:00)
[2017-01-26] MEDS: NYSTATIN 30 GM POWDER BTL TOP SCH ×2 (09:00→20:45)
[2017-01-26] MEDS: BALSAM PERU/CASTOR OIL 60 GM TUBE TOP SCH ×2 (09:00→20:45)
--- NOTE | 2017-01-26 09:49 | PN ---
DATE: 01/26/2017 SUBJECTIVE: The patient remains in serious been stable condition. The patient has failed multiple weaning attempts. The patient may require trach and PEG placement. No other events noted overnight . OBJECTIVE: VITAL SIGNS: Blood pressure is 100/68, respiratory rate 20, pulse 101, temperature 98.6. I'S AND O'S: The patient had 2 L in and 1.2 liters out. HEENT: Head is normocephalic. NECK: Supple. HEART: Regular rate. LUNGS: Show diminished breath sounds at the base. ABDOMEN: Soft, nontender to palpation without rebound or guarding. EXTREMITIES: Negative for clubbing, cyanosis. Trace edema. DERMATOLOGIC: No rashes. MUSCULOSKELETAL: No joint effusions. NEUROLOGIC: No change in exam. MEDICATIONS: The patient's medications have been reviewed. LABORATORY DATA: Shows sodium 136, potassium 5, BUN 39, creatinine 1.16. White count 9.4, hemoglob in 10.3, hematocrit 32.3, platelet count is 197. IMAGING: Chest x-ray on 01/26/2017 no pneumothorax, atelectasis and right chest tube in place. ASSESSMENT AND PLAN: 1. Ventilator-dependent respiratory failure. The patient's vent settings and ABG is reviewed. The patient has failed multiple weaning attempts continue to monitor. Follow up with pulmonary. The p atient may require trach replaced. 2. Sepsis, status post shock. The patient is completing antibiotic therapy. 3. Decompensated heart failure, clinically improved. The patient appears euvolemic. Will deescala te Lasix to 20 mg daily. 4. Nonoliguric acute kidney injury with unknown baseline creatinine. Etiology secondary to hemodyn amic sepsis. Renal function has stabilized. Continue current treatment plan. 5. Anemia. Monitor for any change, consult with hematology. 6. Hypophosphatemia. Continue to monitor. Follow up with hematology. 7. Mineral bone disorder. Monitor calcium and phosphorus levels. 8. Diabetes. Continue Accu-Cheks and insulin sliding scale. 9. Coronary artery disease. Continue medical management. 10. Pulmonary hypertension. 11. Bilateral pleural effusion. 12. Lower extremity deep venous thrombosis, continue Lovenox. 13. Encephalopathy, etiology is toxic metabolic. 14. Gastrointestinal and deep vein thrombosis prophylaxis. Dictated By: AUBREE ESQUIVEL/GENOVEVA Conf#: [id number] [facility]#: [id number]
--- NOTE | 2017-01-26 10:59 | CONS ---
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 PLAN - TRACH Septic shock. Acute decompensated heart failure. Nonoliguric acute kidney injury with unknown baseline creatinine. Etiology secondary to septic acute kidney injury, acute tubular necrosis. Mineral bone disorder. Diabetes. Continue Accu-Cheks and sliding scale. Coronary artery disease. Pulmonary hypertension. Pleural effusions with history of PleurX catheter, currently nonfunctional. Problems: Consultation Date/Type/Reason Admit Date/Time Jan 10, 2017 at 23:15 Initial Consult Date 01/11/17 Type of Consultation: [facility] Referring Provider: AUBREE PALMA DO 24 HR Interval Summary Free Text/Dictation all noted no new events Exam/Review of Systems Vital Signs Vitals Vital Signs Date Time Temp Pulse Resp B/P Pulse Ox O2 Delivery O2 Flow Rate FiO2 01/26/17 08:00 109 01/26/17 04:55 30 100 30 01/26/17 03:30 100/68 01/26/17 00:00 98.3 Mechanical Ventilator Intake and Output 01/25/17 01/25/17 01/26/17 15:00 23:00 07:00 Intake Total 592 ml 1092 ml 548 ml Output Total 400 ml 425 ml 450 ml Balance 192 ml 667 ml 98 ml Exam HEENT: Head is normocephalic. NECK: Supple. HEART: Regular rate. LUNGS: Diminished breath sounds at the base. ABDOMEN: Soft, nontender to palpation. No rebound or guarding. EXTREMITIES: Negative for clubbing, cyanosis. No edema. DERMATOLOGIC: No rashes. MUSCULOSKELETAL: No joint effusion. NEUROLOGIC: No change in exam. Results Result Diagram: 01/26/17 0415 01/26/17 0415 Results 24 hrs Laboratory Tests Test 01/25/17 12:48 01/25/17 16:41 01/25/17 20:18 01/26/17 01:07 Bedside Glucose 124 130 138 114 Test 01/26/17 04:15 01/26/17 05:21 White Blood Count 9.4 Red Blood Count 3.48 L Hemoglobin 10.3 L Hematocrit 32.3 L Mean Corpuscular Volume 92.8 Mean Corpuscular Hemoglobin 29.6 Mean Corpuscular Hemoglobin Concent 31.9 L Red Cell Distribution Width 15.3 H Platelet Count 197 Mean Platelet Volume 11.2 H Neutrophils % Segmented Neutrophils % (Manual) 16 L Band Neutrophils % (Manual) 3 Lymphocytes % Lymphocytes % (Manual) 67 H Reactive Lymphocytes % (Manual) 8 H Monocytes % Monocytes % (Manual) 6 Eosinophils % Basophils % Nucleated Red Blood Cells % 0.0 Neutrophils # Neutrophils # (Manual) 1.5 L Band Neutrophils # 0.2 Absolute Lymphocytes (Manual) 6.2 H Lymphocytes # Reactive Lymphocytes # 0.7 H Monocytes # Absolute Monocytes (Manual) 0.5 Eosinophils # Basophils # Nucleated Red Blood Cells # Platelet Estimate NORMAL Polychromasia 1+ Poikilocytosis 2+ Anisocytosis 1+ Microcytosis 1+ Sodium Level 137 Potassium Level 3.5 Chloride Level 98 Carbon Dioxide Level 30 Anion Gap 13 Blood Urea Nitrogen 39 H Creatinine 1.16 H Glucose Level 120 Calcium Level 9.7 Phosphorus Level 3.7 Magnesium Level 2.2 Bedside Glucose 137 Medications Medications Current Medications Propofol (Diprivan) 100 ml @ 2.045 mls/ hr Q12H IV Last administered on 08:16; Admin Dose 10.227 MLS/HR; Start 01/11/17 at 01:30 Enoxaparin Sodium 70 mg 70 mg Q12 SC Last administered on 01/25/17 21:18; Admin Dose 70 MG; Start 01/11/17 at 12:30 Phenylephrine HCl/ Dextrose (Baudilio-Syneph/D5W) 250 ml @ 10 mls/hr TITRATE IV Last administered on 01/17/17 00:00; Admin Dose 7.5 MLS/HR; Start 01/12/17 at 06:00 Mupirocin (Bactroban) 1 applic BID TOP Last administered on 01/25/17 21:22; Admin Dose 1 APPLIC; Start 01/12/17 at 13:00 Morphine Sulfate (morphine) 1 mg Q4H PRN IV PAIN Last administered on 08:07; Admin Dose 1 MG; Start 01/12/17 at 19:00 Diagnostic Test (Pha) (Accu-Chek) 1 ea 02 XX Last administered on 01/22/17 02: 00; Admin Dose 1 EA; Start 01/14/17 at 02:00 Insulin Aspart (Novolog Insulin Pen) NOVOLOG *MILD* ALGORI... Q4 SC Last administered on 01/24/17 16:49; Admin Dose 1 UNIT; Start 01/13/17 at 09:00 Miscellaneous Information 1 ea NOTE XX ; Start 01/13/17 at 07:00 Glucose (Glutose) 15 gm Q15M PRN PO DECREASED GLUCOSE; Start 01/13/17 at 07:00 Glucose (Glutose) 22.5 gm Q15M PRN PO DECREASED GLUCOSE; Start 01/13/17 at 07: 00 Dextrose (D50w Syringe) 25 ml Q15M PRN IV DECREASED GLUCOSE; Start 01/13/17 at 07:00 Dextrose (D50w Syringe) 50 ml Q15M PRN IV DECREASED GLUCOSE; Start 01/13/17 at 07:00 Glucagon (Glucagen) 1 mg Q15M PRN IM DECREASED GLUCOSE; Start 01/13/17 at 07:00 Glucose (Glutose) 15 gm Q15M PRN BUCCAL DECREASED GLUCOSE; Start 01/13/17 at 07 :00 Carvedilol 3.125 mg 3.125 mg BID NGT Last administered on 01/24/17 20:33; Admin Dose 3.125 MG; Start 01/13/17 at 09:00 Midazolam HCl 50 ml @ 1 mls/hr TITRATE IV Last administered on 01/25/17 23:53 ; Admin Dose 1 MLS/HR; Start 01/14/17 at 12:00 Fentanyl (Sublimaze) 100 ml @ 2.5 mls/hr TITRATE IV Last administered on 10:53; Admin Dose 3 MLS/HR; Start 01/14/17 at 13:00 Nystatin (Nystatin Powder) 1 applic BID TOP Last administered on 01/25/17 21: 22; Admin Dose 1 APPLIC; Start 01/14/17 at 15:00 Potassium Chloride (Potassium Chloride Pwd/Soln) 20 meq DAILY GTB Last administered on 01/25/17 08:37; Admin Dose 20 MEQ; Start 01/21/17 at 09:00 Docusate Sodium (Colace Liquid Cup) 100 mg BID GTB Last administered on 21:16; Admin Dose 100 MG; Start 01/23/17 at 10:00 Metoclopramide HCl (Reglan) 5 mg Q6H PRN IV VOMITTING Last administered on 01/24t 23:51; Admin Dose 5 MG; Start 01/24/17 at 07:00 Sodium Biphosphate/ Sodium Phosphate (Fleet Enema) 133 ml DAILY PRN [place] CONSTIPATION; Start 01/24/17 at 12:30 Furosemide (Lasix) 20 mg DAILY NGT ; Start 01/26/17 at 09:00 Collagenase (Santyl) 1 applic DAILY TOP ; Start 01/27/17 at 09:00 SE RAY MD Jan 26, 2017 10:59
[2017-01-26] MEDS: POTASSIUM CHLORIDE 20 MEQ POWDER FOR ORAL SOLN GTB SCH (11:12)
[2017-01-26] MEDS: DOCUSATE SODIUM 10 MG/ML (10ML CUP) GTB SCH ×2 (11:13→20:44)
[2017-01-26] MEDS: ENOXAPARIN 80 MG/0.8 ML SYG SC SCH ×2 (11:19→20:47)
[2017-01-26] MEDS: MUPIROCIN 2% 22 GM OINT TOP SCH ×2 (11:21→20:45)
--- NOTE | 2017-01-26 12:00 | CONS ---
Date/Time of Note Date/Time of Note DATE: 01/26/17 TIME: 11:56 Assessment/Plan Assessment/Plan Chief Complaint/Hosp Course Consult dictated #[id number] Problems: Additional Assessment/Plan Ventilator setting; AC of 14, tidal volume 400, PEEP of 5, 30% FiO2. Patient is on Versed at 1 mg/h, fentanyl at 30 mics per hour. Chest x-ray was reviewed from today which is essentially clear now. Assessment and recommendations; 1. Patient admitted with pneumonia and CHF exacerbation with marked radiological improvement. 2. History of recurrent pleural effusion status post Pleurx catheter placement on the right side in the recent past. 3. No radiological evidence of any recurrent pleural effusions. 4. Marked radiological clearance of pneumonia. 5. History of chronic lymphocytic leukemia. 6. Failure to be weaned from ventilator despite numerous attempts. Patient has again failed a weaning trial this morning. Continue current treatment. Patient will need to have a tracheostomy and G-tube placed. Consultation Date/Type/Reason Admit Date/Time Jan 10, 2017 at 23:15 Initial Consult Date 01/11/17 Type of Consultation: Pulmonary/critical care Referring Provider: AUBREE PALMA DO 24 HR Interval Summary Free Text/Dictation Patient's condition remains critical but stable. Remains completely awake and alert. Has been off sedation. Has remained hemodynamically stable. General exam; elderly woman, orally intubated, awake and alert. Currently in no distress. Exam/Review of Systems Vital Signs Vitals Vital Signs Date Time Temp Pulse Resp B/P Pulse Ox O2 Delivery O2 Flow Rate FiO2 01/26/17 08:00 109 01/26/17 04:55 30 100 30 01/26/17 03:30 100/68 01/26/17 00:00 98.3 Mechanical Ventilator Intake and Output 01/25/17 01/25/17 01/26/17 15:00 23:00 07:00 Intake Total 592 ml 1092 ml 548 ml Output Total 400 ml 425 ml 450 ml Balance 192 ml 667 ml 98 ml Exam HEENT exam; supple neck, positive JVD. No lymphadenopathy. Midline trachea. No thyromegaly. Orally intubated. Patient is edentulous. Chest exam; diminished but clear breath sounds. S1-S2 audible, no murmurs. Regular rhythm. There is a Pleurx catheter in the right lower lateral chest wall. Abdomen exam; soft, no organomegaly. Bowel sounds audible. Nontender. Extremity exam; no edema. STORE DIRECTOR exam; patient is awake and follows simple commands. Results Result Diagram: 01/26/17 0415 01/26/17 0415 Results 24 hrs Laboratory Tests Test 01/25/17 12:48 01/25/17 16:41 01/25/17 20:18 01/26/17 01:07 Bedside Glucose 124 130 138 114 Test 01/26/17 04:15 01/26/17 05:21 01/26/17 11:12 White Blood Count 9.4 Red Blood Count 3.48 L Hemoglobin 10.3 L Hematocrit 32.3 L Mean Corpuscular Volume 92.8 Mean Corpuscular Hemoglobin 29.6 Mean Corpuscular Hemoglobin Concent 31.9 L Red Cell Distribution Width 15.3 H Platelet Count 197 Mean Platelet Volume 11.2 H Neutrophils % Segmented Neutrophils % (Manual) 16 L Band Neutrophils % (Manual) 3 Lymphocytes % Lymphocytes % (Manual) 67 H Reactive Lymphocytes % (Manual) 8 H Monocytes % Monocytes % (Manual) 6 Eosinophils % Basophils % Nucleated Red Blood Cells % 0.0 Neutrophils # Neutrophils # (Manual) 1.5 L Band Neutrophils # 0.2 Absolute Lymphocytes (Manual) 6.2 H Lymphocytes # Reactive Lymphocytes # 0.7 H Monocytes # Absolute Monocytes (Manual) 0.5 Eosinophils # Basophils # Nucleated Red Blood Cells # Platelet Estimate NORMAL Polychromasia 1+ Poikilocytosis 2+ Anisocytosis 1+ Microcytosis 1+ Sodium Level 137 Potassium Level 3.5 Chloride Level 98 Carbon Dioxide Level 30 Anion Gap 13 Blood Urea Nitrogen 39 H Creatinine 1.16 H Glucose Level 120 Calcium Level 9.7 Phosphorus Level 3.7 Magnesium Level 2.2 Bedside Glucose 137 113 Medications Medications Current Medications Propofol (Diprivan) 100 ml @ 2.045 mls/ hr Q12H IV Last administered on 08:16; Admin Dose 10.227 MLS/HR; Start 01/11/17 at 01:30 Enoxaparin Sodium 70 mg 70 mg Q12 SC Last administered on 01/26/17 11:19; Admin Dose 70 MG; Start 01/11/17 at 12:30 Phenylephrine HCl/ Dextrose (Baudilio-Syneph/D5W) 250 ml @ 10 mls/hr TITRATE IV Last administered on 01/17/17 00:00; Admin Dose 7.5 MLS/HR; Start 01/12/17 at 06:00 Mupirocin (Bactroban) 1 applic BID TOP Last administered on 01/26/17 11:21; Admin Dose 1 APPLIC; Start 01/12/17 at 13:00 Morphine Sulfate (morphine) 1 mg Q4H PRN IV PAIN Last administered on 08:07; Admin Dose 1 MG; Start 01/12/17 at 19:00 Diagnostic Test (Pha) (Accu-Chek) 1 ea 02 XX Last administered on 01/22/17 02: 00; Admin Dose 1 EA; Start 01/14/17 at 02:00 Insulin Aspart (Novolog Insulin Pen) NOVOLOG *MILD* ALGORI... Q4 SC Last administered on 01/24/17 16:49; Admin Dose 1 UNIT; Start 01/13/17 at 09:00 Miscellaneous Information 1 ea NOTE XX ; Start 01/13/17 at 07:00 Glucose (Glutose) 15 gm Q15M PRN PO DECREASED GLUCOSE; Start 01/13/17 at 07:00 Glucose (Glutose) 22.5 gm Q15M PRN PO DECREASED GLUCOSE; Start 01/13/17 at 07: 00 Dextrose (D50w Syringe) 25 ml Q15M PRN IV DECREASED GLUCOSE; Start 01/13/17 at 07:00 Dextrose (D50w Syringe) 50 ml Q15M PRN IV DECREASED GLUCOSE; Start 01/13/17 at 07:00 Glucagon (Glucagen) 1 mg Q15M PRN IM DECREASED GLUCOSE; Start 01/13/17 at 07:00 Glucose (Glutose) 15 gm Q15M PRN BUCCAL DECREASED GLUCOSE; Start 01/13/17 at 07 :00 Carvedilol 3.125 mg 3.125 mg BID NGT Last administered on 01/24/17 20:33; Admin Dose 3.125 MG; Start 01/13/17 at 09:00 Midazolam HCl 50 ml @ 1 mls/hr TITRATE IV Last administered on 01/25/17 23:53 ; Admin Dose 1 MLS/HR; Start 01/14/17 at 12:00 Fentanyl (Sublimaze) 100 ml @ 2.5 mls/hr TITRATE IV Last administered on 10:53; Admin Dose 3 MLS/HR; Start 01/14/17 at 13:00 Nystatin (Nystatin Powder) 1 applic BID TOP Last administered on 01/25/17 21: 22; Admin Dose 1 APPLIC; Start 01/14/17 at 15:00 Potassium Chloride (Potassium Chloride Pwd/Soln) 20 meq DAILY GTB Last administered on 01/26/17 11:12; Admin Dose 20 MEQ; Start 01/21/17 at 09:00 Docusate Sodium (Colace Liquid Cup) 100 mg BID GTB Last administered on 11:13; Admin Dose 100 MG; Start 01/23/17 at 10:00 Metoclopramide HCl (Reglan) 5 mg Q6H PRN IV VOMITTING Last administered on 01/24 23:51; Admin Dose 5 MG; Start 01/24/17 at 07:00 Sodium Biphosphate/ Sodium Phosphate (Fleet Enema) 133 ml DAILY PRN [place] CONSTIPATION; Start 01/24/17 at 12:30 Furosemide (Lasix) 20 mg DAILY NGT Last administered on 01/26/17 09:00; Admin Dose 20 MG; Start 01/26/17 at 09:00 Collagenase (Santyl) 1 applic DAILY TOP ; Start 01/27/17 at 09:00 RADHA CAMACHO Jan 26, 2017 12:00
--- NOTE | 2017-01-26 12:41 | CONS ---
Date/Time of Note Date/Time of Note DATE: 01/26/17 TIME: 12:40 Assessment/Plan Assessment/Plan Chief Complaint/Hosp Course SUBJECTIVE DATA: No acute changes. . Patient is awake looks comfortable on vent, follows commands. Temperature 98.3 pulse 85 respirations 20 blood pressure 100/68 saturation 100 on 30 FiO2 WBC 9.4 H&H 10.3 and 32.3 platelets 197 BUN 39 creatinine 1.16 Chest x-ray this morning revealed no change since January 23, 2017 INDWELLINGS: Endotracheal tube, NG-tube, left IJ triple lumen catheter. Right-sided PleurX catheter, Sifuentes catheter. PHYSICAL EXAMINATION: GENERAL: This is a well-developed, well-nourished, and elderly woman who is intubated, sedated and in no distress. HEENT: Head atraumatic, normocephalic. Sclerae anicteric. Buccal mucosa dry. NECK: Supple. CHEST: Rise symmetrical. Breath sounds diminished at the bases. HEART: S1, S2. ABDOMEN: Soft, bowel sounds present. EXTREMITIES: Without cyanosis. ASSESSMENT: 1. Status post septic shock 2. Status post-congestive heart failure exacerbation. 3. Acute respiratory failure, failed weaning trials. 4. Status post-pneumonia. 5. Chronic lymphocytic leukemia. 5. History of right PleurX catheter placement secondary to recurrent pleural effusions. 6. Diabetes. 7. Methicillin-resistant Staphylococcus aureus nares colonization. 8. History of deep vein thrombosis. PLAN: The patient is hemodynamically stable. Off antibiotics. Continue present care. Repeat cultures as needed Problems: Consultation Date/Type/Reason Admit Date/Time Jan 10, 2017 at 23:15 Initial Consult Date 01/10/17 Type of Consultation: ID Referring Provider: AUBREE PALMA DO Exam/Review of Systems Vital Signs Vitals Vital Signs Date Time Temp Pulse Resp B/P Pulse Ox O2 Delivery O2 Flow Rate FiO2 01/26/17 08:00 109 01/26/17 04:55 30 100 30 01/26/17 03:30 100/68 01/26/17 00:00 98.3 Mechanical Ventilator Intake and Output 01/25/17 01/25/17 01/26/17 15:00 23:00 07:00 Intake Total 592 ml 1092 ml 548 ml Output Total 400 ml 425 ml 450 ml Balance 192 ml 667 ml 98 ml Results Result Diagram: 01/26/17 0415 01/26/17 0415 Results 24 hrs Laboratory Tests Test 01/25/17 12:48 01/25/17 16:41 01/25/17 20:18 01/26/17 01:07 Bedside Glucose 124 130 138 114 Test 01/26/17 04:15 01/26/17 05:21 01/26/17 11:12 White Blood Count 9.4 Red Blood Count 3.48 L Hemoglobin 10.3 L Hematocrit 32.3 L Mean Corpuscular Volume 92.8 Mean Corpuscular Hemoglobin 29.6 Mean Corpuscular Hemoglobin Concent 31.9 L Red Cell Distribution Width 15.3 H Platelet Count 197 Mean Platelet Volume 11.2 H Neutrophils % Segmented Neutrophils % (Manual) 16 L Band Neutrophils % (Manual) 3 Lymphocytes % Lymphocytes % (Manual) 67 H Reactive Lymphocytes % (Manual) 8 H Monocytes % Monocytes % (Manual) 6 Eosinophils % Basophils % Nucleated Red Blood Cells % 0.0 Neutrophils # Neutrophils # (Manual) 1.5 L Band Neutrophils # 0.2 Absolute Lymphocytes (Manual) 6.2 H Lymphocytes # Reactive Lymphocytes # 0.7 H Monocytes # Absolute Monocytes (Manual) 0.5 Eosinophils # Basophils # Nucleated Red Blood Cells # Platelet Estimate NORMAL Polychromasia 1+ Poikilocytosis 2+ Anisocytosis 1+ Microcytosis 1+ Sodium Level 137 Potassium Level 3.5 Chloride Level 98 Carbon Dioxide Level 30 Anion Gap 13 Blood Urea Nitrogen 39 H Creatinine 1.16 H Glucose Level 120 Calcium Level 9.7 Phosphorus Level 3.7 Magnesium Level 2.2 Bedside Glucose 137 113 Medications Medications Current Medications Propofol (Diprivan) 100 ml @ 2.045 mls/ hr Q12H IV Last administered on 08:16; Admin Dose 10.227 MLS/HR; Start 01/11/17 at 01:30 Enoxaparin Sodium 70 mg 70 mg Q12 SC Last administered on 01/26/17 11:19; Admin Dose 70 MG; Start 01/11/17 at 12:30 Phenylephrine HCl/ Dextrose (Baudilio-Syneph/D5W) 250 ml @ 10 mls/hr TITRATE IV Last administered on 01/17/17 00:00; Admin Dose 7.5 MLS/HR; Start 01/12/17 at 06:00 Mupirocin (Bactroban) 1 applic BID TOP Last administered on 01/26/17 11:21; Admin Dose 1 APPLIC; Start 01/12/17 at 13:00 Morphine Sulfate (morphine) 1 mg Q4H PRN IV PAIN Last administered on 08:07; Admin Dose 1 MG; Start 01/12/17 at 19:00 Diagnostic Test (Pha) (Accu-Chek) 1 ea 02 XX Last administered on 01/22/17 02: 00; Admin Dose 1 EA; Start 01/14/17 at 02:00 Insulin Aspart (Novolog Insulin Pen) NOVOLOG *MILD* ALGORI... Q4 SC Last administered on 01/24/17 16:49; Admin Dose 1 UNIT; Start 01/13/17 at 09:00 Miscellaneous Information 1 ea NOTE XX ; Start 01/13/17 at 07:00 Glucose (Glutose) 15 gm Q15M PRN PO DECREASED GLUCOSE; Start 01/13/17 at 07:00 Glucose (Glutose) 22.5 gm Q15M PRN PO DECREASED GLUCOSE; Start 01/13/17 at 07: 00 Dextrose (D50w Syringe) 25 ml Q15M PRN IV DECREASED GLUCOSE; Start 01/13/17 at 07:00 Dextrose (D50w Syringe) 50 ml Q15M PRN IV DECREASED GLUCOSE; Start 01/13/17 at 07:00 Glucagon (Glucagen) 1 mg Q15M PRN IM DECREASED GLUCOSE; Start 01/13/17 at 07:00 Glucose (Glutose) 15 gm Q15M PRN BUCCAL DECREASED GLUCOSE; Start 01/13/17 at 07 :00 Carvedilol 3.125 mg 3.125 mg BID NGT Last administered on 01/24/17 20:33; Admin Dose 3.125 MG; Start 01/13/17 at 09:00 Midazolam HCl 50 ml @ 1 mls/hr TITRATE IV Last administered on 01/25/17 23:53 ; Admin Dose 1 MLS/HR; Start 01/14/17 at 12:00 Fentanyl (Sublimaze) 100 ml @ 2.5 mls/hr TITRATE IV Last administered on 10:53; Admin Dose 3 MLS/HR; Start 01/14/17 at 13:00 Nystatin (Nystatin Powder) 1 applic BID TOP Last administered on 01/26/17 09: 00; Admin Dose 1 APPLIC; Start 01/14/17 at 15:00 Potassium Chloride (Potassium Chloride Pwd/Soln) 20 meq DAILY GTB Last administered on 01/26/17 11:12; Admin Dose 20 MEQ; Start 01/21/17 at 09:00 Docusate Sodium (Colace Liquid Cup) 100 mg BID GTB Last administered on 11:13; Admin Dose 100 MG; Start 01/23/17 at 10:00 Metoclopramide HCl (Reglan) 5 mg Q6H PRN IV VOMITTING Last administered on 01/24 23:51; Admin Dose 5 MG; Start 01/24/17 at 07:00 Sodium Biphosphate/ Sodium Phosphate (Fleet Enema) 133 ml DAILY PRN [place] CONSTIPATION; Start 01/24/17 at 12:30 Furosemide (Lasix) 20 mg DAILY NGT Last administered on 01/26/17 09:00; Admin Dose 20 MG; Start 01/26/17 at 09:00 Collagenase (Santyl) 1 applic DAILY TOP ; Start 01/27/17 at 09:00 MARIAM LINTON NP Jan 26, 2017 12:41
[2017-01-26] MEDS: FENTAnyl (DRIP) 1000 mcg/100mL 100 ML IV SCH (18:26)
[2017-01-26] MEDS: MIDAZOLAM (DRIP) 50 mg/50 mL 50 ML IV SCH (18:26)
--- NOTE | 2017-01-26 18:58 | PN ---
Date/Time of Note Date/Time of Note DATE: 01/26/17 TIME: 18:58 Assessment/Plan Lines/Catheters IV Catheter Type (from Nrsg): Central Line Sifuentes in Place (from Nrsg): Yes Assessment/Plan Chief Complaint/Hosp Course IMPRESSION: Respiratory failure. RECOMMENDATIONS: We will proceed with placement of a tracheostomy. plan for surgery Problems: Subjective 24 Hr Interval Summary Constitutional: improved Pain Control: mild Exam/Review of Systems Vital Signs Vitals Vital Signs Date Time Temp Pulse Resp B/P Pulse Ox O2 Delivery O2 Flow Rate FiO2 01/26/17 17:10 74 16 100 30 01/26/17 17:00 81/43 Mechanical Ventilator 01/26/17 16:00 98.1 Intake and Output 01/25/17 01/25/17 01/26/17 15:00 23:00 07:00 Intake Total 592 ml 1092 ml 552 ml Output Total 400 ml 425 ml 450 ml Balance 192 ml 667 ml 102 ml Exam ENMT: mucosa pink and moist, nl external ears & nose, nl lips & teeth, nl nasal mucosa & septum Neck: non-tender, supple Respiratory: clear to auscultation, normal air movement Cardiovascular: nl pulses, regular rate and rhythm Results Result Diagram: 01/26/17 0415 01/26/17 0415 DAVID KELLER MD Jan 26, 2017 18:58
[2017-01-27] VITALS (57 sets, daily range): BP systolic 74–116; BP diastolic 39–76; PULSE 59–86; RESP 0–29
[2017-01-27] MEDS: PROPOFOL 100 ML IV SCH ×2 (01:30→12:35)
[2017-01-27] MEDS: INSULIN ASPART [NOVOLOG] 3 ML PEN SC SCH ×4 (05:38→21:25)
[2017-01-27 05:40] LABS: ABNORMAL IP MESSAGE 1; HEMATOCRIT 32.4 % (37.0-47.0); HEMOGLOBIN 10.1 g/dl (12.0-16.0); MEAN CORPUSCULAR HEMOGLOBIN 29.1 pg (29.0-33.0); MEAN CORPUSCULAR HGB CONC 31.2 g/dl (32.0-37.0); MEAN CORPUSCULAR VOLUME 93.4 fl (82.0-101.0); MEAN PLATELET VOLUME 10.8 fl (7.4-10.4); PLATELET COUNT 193 10^3/UL (140-415); RED BLOOD COUNT 3.47 10^6/ul (4.20-5.40); RED CELL DISTRIBUTION WIDTH 15.4 % (11.5-14.5); WHITE BLOOD COUNT 7.9 10^3/ul (4.8-10.8)
[2017-01-27 05:46] LABS: POSITIVE DIFF @See below
[2017-01-27 06:08] LABS: CALCIUM 9.3 mg/dl (8.4-10.2); CREATININE 1.04 mg/dl (0.44-1.00); PHOSPHORUS 3.9 mg/dl (2.5-4.9); POTASSIUM 3.7 mmol/L (3.5-5.1)
[2017-01-27 06:09] LABS: ALBUMIN 3.3 g/dl (3.3-4.9); ALBUMIN/GLOBULIN RATIO 1.17; BILIRUBIN,INDIRECT 0.2 mg/dl (0-1.1); BILIRUBIN,TOTAL 0.2 mg/dl (0.2-1.3); CALCIUM 9.5 mg/dl (8.4-10.2); CREATININE 1.09 mg/dl (0.44-1.00); MAGNESIUM 2.1 mg/dl (1.7-2.5); POTASSIUM 3.6 mmol/L (3.5-5.1); TOTAL PROTEIN 6.1 g/dl (6.1-8.1)
[2017-01-27 07:46] LABS: ANISOCYTOSIS 2+ (0-0); MICROCYTOSIS 1+ (0-0); MONOCYTES % (M) 9 % (0-11); PLATELET ESTIMATE NORMAL; POIKILOCYTOSIS 1+ (0-0); POLYCHROMASIA 3+ (0-0); REACTIVE LYMPHOCYTES% (M) 1 % (0-0)
--- NOTE | 2017-01-27 08:54 | CONS ---
Date/Time of Note Date/Time of Note DATE: 01/27/17 TIME: 08:53 Consult Date/Type/Reason Admit Date/Time Jan 10, 2017 at 23:15 Initial Consult Date 01/11/17 Type of Consultation: cardiology Ordering Provider: AUBREE PALMA DO Subjective CARDIOLOGY follow up note S: D/W staff and rhythm was reviewed. pt remains in afib. HR has been under good control for the most part. she is still on vent in ICU. pt is nonverbal. her old records were extensively reviewed pt's EF was normal at 50-55% on 01/01/17 O: gen: intubated on vent HEENT: Pupils are equal NECK: no stridor. CV: irregularly irregular. systolic murmur pulm: + mild rhonchi. diffuse. Chest: s/p plurodex right side GI: soft NT ND. no rebound. no guarding ext: + trace LE edema neuro: awake and follows commands. Derm: multiple echymosis psych; anxious ECG reviewed: afib RVR. ant infarct. ECHO 01/11/17reviewed personally: 1. Normal left ventricular cavity size. Normal left ventricular wall thickness. Severe left ventricular systolic dysfunction. Ejection fraction is visually estimated at 25 %. Multiple segmental wall motion abnormalities. 2. There is mild enlargement of left atrium. 3. Mild mitral leaflet calcification. Mild mitral annular calcification. Mild mitral valve regurgitation. 4. Aortic sclerosis without stenosis. Trace aortic valve regurgitation. 5. Normal appearance of the tricuspid valve. Estimated peak PA systolic pressure 53 mmHg. There is mild tricuspid regurgitation. 6. Inferior vena cava without respiratory collapse, however, patient on ventilator. ECHO 01/01/17: per review of old charts. EF 50-55%. LAE. MOD/ SEVERE MR. Objective Vital Signs Date Time Temp Pulse Resp B/P Pulse Ox O2 Delivery O2 Flow Rate FiO2 01/27/17 08:00 98.2 82 15 109/61 100 Mechanical Ventilator 01/27/17 05:06 30 Intake and Output 01/26/17 01/26/17 01/27/17 15:00 23:00 07:00 Intake Total 32 ml 1194.0 ml 37 ml Output Total 630 ml 310 ml Balance 32 ml 564.0 ml -273 ml Results/Medications Result Diagram: 01/27/17 0500 10/5/17 0500 Results 24 hrs Laboratory Tests Test 01/26/17 11:12 01/26/17 18:25 01/26/17 23:06 01/27/17 05:00 Bedside Glucose 113 118 116 White Blood Count 7.9 Red Blood Count 3.47 L Hemoglobin 10.1 L Hematocrit 32.4 L Mean Corpuscular Volume 93.4 Mean Corpuscular Hemoglobin 29.1 Mean Corpuscular Hemoglobin Concent 31.2 L Red Cell Distribution Width 15.4 H Platelet Count 193 Mean Platelet Volume 10.8 H Neutrophils % Segmented Neutrophils % (Manual) 30 L Lymphocytes % Lymphocytes % (Manual) 60 H Reactive Lymphocytes % (Manual) 1 H Monocytes % Monocytes % (Manual) 9 Eosinophils % Basophils % Nucleated Red Blood Cells % 0.0 Neutrophils # Absolute Lymphocytes (Manual) 4.7 H Lymphocytes # Reactive Lymphocytes # 0.0 Monocytes # Absolute Monocytes (Manual) 0.7 Eosinophils # Basophils # Nucleated Red Blood Cells # Platelet Estimate NORMAL Polychromasia 3+ Poikilocytosis 1+ Anisocytosis 2+ Microcytosis 1+ Macrocytosis 1+ Sodium Level 136 Potassium Level 3.6 Chloride Level 100 Carbon Dioxide Level 30 Anion Gap 10 Blood Urea Nitrogen 33 H Creatinine 1.09 H Glucose Level 97 Calcium Level 9.5 Phosphorus Level 3.9 Magnesium Level 2.1 Total Bilirubin 0.2 Direct Bilirubin 0.00 Indirect Bilirubin 0.2 Aspartate Amino Transf (AST/SGOT) 31 Alanine Aminotransferase (ALT/SGPT) 33 Alkaline Phosphatase 56 B-Type Natriuretic Peptide 3360 H Total Protein 6.1 Albumin 3.3 Globulin 2.80 Albumin/Globulin Ratio 1.17 Test 01/27/17 05:36 Bedside Glucose 100 Medications Current Medications Propofol (Diprivan) 100 ml @ 2.045 mls/ hr Q12H IV Last administered on 08:16; Admin Dose 10.227 MLS/HR; Start 01/11/17 at 01:30 Enoxaparin Sodium 70 mg 70 mg Q12 SC Last administered on 01/26/17 20:47; Admin Dose 70 MG; Start 01/11/17 at 12:30 Phenylephrine HCl/ Dextrose (Baudilio-Syneph/D5W) 250 ml @ 10 mls/hr TITRATE IV Last administered on 01/17/17 00:00; Admin Dose 7.5 MLS/HR; Start 01/12/17 at 06:00 Mupirocin (Bactroban) 1 applic BID TOP Last administered on 01/26/17 20:45; Admin Dose 1 APPLIC; Start 01/12/17 at 13:00 Morphine Sulfate (morphine) 1 mg Q4H PRN IV PAIN Last administered on 08:07; Admin Dose 1 MG; Start 01/12/17 at 19:00 Miscellaneous Information 1 ea NOTE XX ; Start 01/13/17 at 07:00 Glucose (Glutose) 15 gm Q15M PRN PO DECREASED GLUCOSE; Start 01/13/17 at 07:00 Glucose (Glutose) 22.5 gm Q15M PRN PO DECREASED GLUCOSE; Start 01/13/17 at 07: 00 Dextrose (D50w Syringe) 25 ml Q15M PRN IV DECREASED GLUCOSE; Start 01/13/17 at 07:00 Dextrose (D50w Syringe) 50 ml Q15M PRN IV DECREASED GLUCOSE; Start 01/13/17 at 07:00 Glucagon (Glucagen) 1 mg Q15M PRN IM DECREASED GLUCOSE; Start 01/13/17 at 07:00 Glucose (Glutose) 15 gm Q15M PRN BUCCAL DECREASED GLUCOSE; Start 01/13/17 at 07 :00 Carvedilol 3.125 mg 3.125 mg BID NGT Last administered on 01/24/17 20:33; Admin Dose 3.125 MG; Start 01/13/17 at 09:00 Midazolam HCl 50 ml @ 1 mls/hr TITRATE IV Last administered on 01/26/17 18:26 ; Admin Dose 1 MLS/HR; Start 01/14/17 at 12:00 Fentanyl (Sublimaze) 100 ml @ 2.5 mls/hr TITRATE IV Last administered on 18:26; Admin Dose 3 MLS/HR; Start 01/14/17 at 13:00 Nystatin (Nystatin Powder) 1 applic BID TOP Last administered on 01/26/17 20: 45; Admin Dose 1 APPLIC; Start 01/14/17 at 15:00 Potassium Chloride (Potassium Chloride Pwd/Soln) 20 meq DAILY GTB Last administered on 01/26/17 11:12; Admin Dose 20 MEQ; Start 01/21/17 at 09:00 Docusate Sodium (Colace Liquid Cup) 100 mg BID GTB Last administered on 20:44; Admin Dose 100 MG; Start 01/23/17 at 10:00 Metoclopramide HCl (Reglan) 5 mg Q6H PRN IV VOMITTING Last administered on 01/24 23:51; Admin Dose 5 MG; Start 01/24/17 at 07:00 Sodium Biphosphate/ Sodium Phosphate (Fleet Enema) 133 ml DAILY PRN MA CONSTIPATION; Start 01/24/17 at 12:30 Furosemide (Lasix) 20 mg DAILY NGT Last administered on 01/26/17 09:00; Admin Dose 20 MG; Start 01/26/17 at 09:00 Collagenase (Santyl) 1 applic DAILY TOP ; Start 01/27/17 at 09:00 Insulin Aspart (Novolog Insulin Pen) NOVOLOG *MILD* ALGORI... Q6 SC ; Start 01/26/17 at 18:00 Assessment/Plan Chief Complaint/Hosp Course 1. shock: cardiogenic and septic combination : BP has improved now and off pressors but on low side. 2. CHF: acute on chronic probably due to systolic and diastolic heart failure: currently stable and appears compensated. 3. acute hypoxemic/ hypercapnic resp failure: s/ p re-intubation now 4. Afib with RVR: HR is under much better control now 5. HX CAD 6/ HX PCI RCA 2009 7. HX HTN: now hypotensive 8. Electrolytes abnormalities. 9. hx CLL 10. ANEMIA 11. Lactic acidosis: resolved now. 12. dyslipidemia 13./ hx DVT ( treated with XARELTO at home). on lovenox here. 14. severe cardiomyopathy now with EF 20% (. EF was 50-55% on 01/01/17 per review of old records) REC: cont ICU care and vent support for now. PULM CONSULT input is greatly appreciated. weaning trial has failed so far unfortunately. awaiting trach. will give dig prn. currently HR is under fair control. ECHO shows severe LV dysfunction now. will consider ischemic work up once/ if pt is more stable and extubated. coreg as tolerated. CONT ICU CARE. s/p transfusion per hem/onc rec. stool OB is negative so far, cont anticoagulation, to be held prior to trach. thank you. CHINO MERCEDES MD [facility] Problems: CHINO MERCEDES MD Jan 27, 2017 08:54
[2017-01-27] MEDS: ENOXAPARIN 80 MG/0.8 ML SYG SC SCH ×3 (09:00→21:23)
[2017-01-27] MEDS: DOCUSATE SODIUM 10 MG/ML (10ML CUP) GTB SCH ×2 (09:20→21:24)
[2017-01-27] MEDS: FENTAnyl (DRIP) 1000 mcg/100mL 100 ML IV SCH (09:20)
[2017-01-27] MEDS: POTASSIUM CHLORIDE 20 MEQ POWDER FOR ORAL SOLN GTB SCH (09:20)
[2017-01-27] MEDS: NYSTATIN 30 GM POWDER BTL TOP SCH ×2 (09:21→21:24)
[2017-01-27] MEDS: MUPIROCIN 2% 22 GM OINT TOP SCH ×2 (09:21→21:24)
[2017-01-27] MEDS: BALSAM PERU/CASTOR OIL 60 GM TUBE TOP SCH (09:21)
[2017-01-27] MEDS: FUROSEMIDE 20 MG TAB NGT SCH ×2 (11:01→13:10)
--- NOTE | 2017-01-27 12:16 | CONS ---
Date/Time of Note Date/Time of Note DATE: 01/27/17 TIME: 12:11 Assessment/Plan Assessment/Plan Chief Complaint/Hosp Course Consult dictated #[id number] Problems: Additional Assessment/Plan Ventilator setting; AC of 16, tidal volume 400, PEEP of 5, 30% FiO2. Patient currently on fentanyl at 50 mics per hour, Versed 3 mg/h. Assessment and recommendations; 1. Patient admitted with pneumonia and CHF exacerbation with marked radiological improvement. Off antibiotics now. 2. History of recurrent pleural effusion status post right Pleurx catheter placement in the past prior to current admission. 3. Generalized deconditioning preventing weaning from ventilator. Continue current treatment. Family to consider tracheostomy. I did have multiple discussions with the patient's son as well as her [id number] over the past few days. Consultation Date/Type/Reason Admit Date/Time Jan 10, 2017 at 23:15 Initial Consult Date 01/11/17 Type of Consultation: Pulmonary/critical care Referring Provider: AUBREE PALMA DO 24 HR Interval Summary Free Text/Dictation Patient condition remains critical. Has been unable to be weaned off ventilator despite numerous attempts. Patient however has remained hemodynamically stable. General exam; elderly woman, despite being on sedation she is arousable. Currently no distress. Orally intubated. Exam/Review of Systems Vital Signs Vitals Vital Signs Date Time Temp Pulse Resp B/P Pulse Ox O2 Delivery O2 Flow Rate FiO2 01/27/17 11:30 73 16 98/53 99 Mechanical Ventilator 01/27/17 11:18 30 01/27/17 08:00 98.2 Intake and Output 01/26/17 01/26/17 01/27/17 15:00 23:00 07:00 Intake Total 32 ml 1194.0 ml 37 ml Output Total 630 ml 310 ml Balance 32 ml 564.0 ml -273 ml Exam HEENT exam; supple neck, no JVD. No lymphadenopathy. Midline trachea. No thyromegaly. Orally intubated. Vision is edentulous. Chest exam; diminished but clear breath sounds. S1-S2 audible, no murmurs. Regular rhythm. Pleurx catheter in place involving right lower lateral chest wall. Abdomen exam; soft, non-distended. Nontender. No organomegaly. Bowel sounds audible. Extremity exam; no edema. [employer] GRADER exam; patient is awake and follows simple commands. Results Result Diagram: 10/5/17 0500 01/27/17 0500 Results 24 hrs Laboratory Tests Test 01/26/17 18:25 01/26/17 23:06 01/27/17 05:00 01/27/17 05:36 Bedside Glucose 118 116 100 White Blood Count 7.9 Red Blood Count 3.47 L Hemoglobin 10.1 L Hematocrit 32.4 L Mean Corpuscular Volume 93.4 Mean Corpuscular Hemoglobin 29.1 Mean Corpuscular Hemoglobin Concent 31.2 L Red Cell Distribution Width 15.4 H Platelet Count 193 Mean Platelet Volume 10.8 H Neutrophils % Segmented Neutrophils % (Manual) 30 L Lymphocytes % Lymphocytes % (Manual) 60 H Reactive Lymphocytes % (Manual) 1 H Monocytes % Monocytes % (Manual) 9 Eosinophils % Basophils % Nucleated Red Blood Cells % 0.0 Neutrophils # Absolute Lymphocytes (Manual) 4.7 H Lymphocytes # Reactive Lymphocytes # 0.0 Monocytes # Absolute Monocytes (Manual) 0.7 Eosinophils # Basophils # Nucleated Red Blood Cells # Platelet Estimate NORMAL Polychromasia 3+ Poikilocytosis 1+ Anisocytosis 2+ Microcytosis 1+ Macrocytosis 1+ Sodium Level 136 Potassium Level 3.6 Chloride Level 100 Carbon Dioxide Level 30 Anion Gap 10 Blood Urea Nitrogen 33 H Creatinine 1.09 H Glucose Level 97 Calcium Level 9.5 Phosphorus Level 3.9 Magnesium Level 2.1 Total Bilirubin 0.2 Direct Bilirubin 0.00 Indirect Bilirubin 0.2 Aspartate Amino Transf (AST/SGOT) 31 Alanine Aminotransferase (ALT/SGPT) 33 Alkaline Phosphatase 56 B-Type Natriuretic Peptide 3360 H Total Protein 6.1 Albumin 3.3 Globulin 2.80 Albumin/Globulin Ratio 1.17 Medications Medications Current Medications Propofol (Diprivan) 100 ml @ 2.045 mls/ hr Q12H IV Last administered on 08:16; Admin Dose 10.227 MLS/HR; Start 01/11/17 at 01:30 Enoxaparin Sodium 70 mg 70 mg Q12 SC Last administered on 01/26/17 20:47; Admin Dose 70 MG; Start 01/11/17 at 12:30 Phenylephrine HCl/ Dextrose (Baudilio-Syneph/D5W) 250 ml @ 10 mls/hr TITRATE IV Last administered on 01/17/17 00:00; Admin Dose 7.5 MLS/HR; Start 01/12/17 at 06:00 Mupirocin (Bactroban) 1 applic BID TOP Last administered on 01/27/17 09:21; Admin Dose 1 APPLIC; Start 01/12/17 at 13:00 Morphine Sulfate (morphine) 1 mg Q4H PRN IV PAIN Last administered on 08:07; Admin Dose 1 MG; Start 01/12/17 at 19:00 Miscellaneous Information 1 ea NOTE XX ; Start 01/13/17 at 07:00 Glucose (Glutose) 15 gm Q15M PRN PO DECREASED GLUCOSE; Start 01/13/17 at 07:00 Glucose (Glutose) 22.5 gm Q15M PRN PO DECREASED GLUCOSE; Start 01/13/17 at 07: 00 Dextrose (D50w Syringe) 25 ml Q15M PRN IV DECREASED GLUCOSE; Start 01/13/17 at 07:00 Dextrose (D50w Syringe) 50 ml Q15M PRN IV DECREASED GLUCOSE; Start 01/13/17 at 07:00 Glucagon (Glucagen) 1 mg Q15M PRN IM DECREASED GLUCOSE; Start 01/13/17 at 07:00 Glucose (Glutose) 15 gm Q15M PRN BUCCAL DECREASED GLUCOSE; Start 01/13/17 at 07 :00 Carvedilol 3.125 mg 3.125 mg BID NGT Last administered on 01/24/17 20:33; Admin Dose 3.125 MG; Start 01/13/17 at 09:00 Midazolam HCl 50 ml @ 1 mls/hr TITRATE IV Last administered on 01/26/17 18:26 ; Admin Dose 1 MLS/HR; Start 01/14/17 at 12:00 Fentanyl (Sublimaze) 100 ml @ 2.5 mls/hr TITRATE IV Last administered on 09:20; Admin Dose 5 MLS/HR; Start 01/14/17 at 13:00 Nystatin (Nystatin Powder) 1 applic BID TOP Last administered on 01/27/17 09: 21; Admin Dose 1 APPLIC; Start 01/14/17 at 15:00 Potassium Chloride (Potassium Chloride Pwd/Soln) 20 meq DAILY GTB Last administered on 01/27/17 09:20; Admin Dose 20 MEQ; Start 01/21/17 at 09:00 Docusate Sodium (Colace Liquid Cup) 100 mg BID GTB Last administered on 09:20; Admin Dose 100 MG; Start 01/23/17 at 10:00 Metoclopramide HCl (Reglan) 5 mg Q6H PRN IV VOMITTING Last administered on 01/24 23:51; Admin Dose 5 MG; Start 01/24/17 at 07:00 Sodium Biphosphate/ Sodium Phosphate (Fleet Enema) 133 ml DAILY PRN ID CONSTIPATION; Start 01/24/17 at 12:30 Furosemide (Lasix) 20 mg DAILY NGT Last administered on 01/26/17 09:00; Admin Dose 20 MG; Start 01/26/17 at 09:00 Collagenase (Santyl) 1 applic DAILY TOP ; Start 01/27/17 at 09:00 Insulin Aspart (Novolog Insulin Pen) NOVOLOG *MILD* ALGORI... Q6 SC ; Start 01/26/17 at 18:00 RADHA CAMACHO Jan 27, 2017 12:16
--- NOTE | 2017-01-27 12:36 | PN ---
DATE: 01/27/2017 SUBJECTIVE: The patient continues to fail weaning trials and is pending possible trach placement. No new events noted. No hemoptysis, hematemesis or hematochezia. OBJECTIVE: VITAL SIGNS: Blood pressure is 102/67, respirations 15, pulse 76, temperature 98.2. HEENT: Head is normocephalic. NECK: Supple. HEART: Regular rate. LUNGS: Show diminished breath sounds at base. ABDOMEN: Soft, nontender to palpation. No rebound or guarding. EXTREMITIES: Negative for clubbing, cyanosis, no edema. DERMATOLOGIC: No rashes. MUSCULOSKELETAL: No joint effusions. NEUROLOGIC: No change in exam. MEDICATIONS: The patient's medications have been reviewed. LABORATORY DATA: Shows white count 7.9, hemoglobin 10.1, hematocrit 32.4, platelet count 193. [place] um 136, potassium 3.6, BUN 33, creatinine 1.09. ASSESSMENT AND PLAN: 1. Ventilator-dependent respiratory failure. The patient is vent dependent. ABGs reviewed. The p atient has failed multiple weaning attempts. Will attempt tracheostomy placement today. 2. Sepsis, status post shock. The patient is completing antibiotic course. 3. Decompensated heart failure, clinically improving. The patient appears euvolemic. Continue diu retic therapy at current rate. 4. Nonoliguric acute kidney injury with unknown baseline creatinine. Etiology is secondary to hemo dynamic sepsis. Renal function is stabilized. Continue current treatment plan. 5. Mineral bone disorder, monitor calcium and phosphorus levels. 6. Diabetes. Continue Accu-Cheks, insulin sliding scale. 7. Coronary artery disease. Continue medical management. 8. Pulmonary hypertension. Continue current treatment plan. 9. Bilateral pleural effusions. 10. Nutrition. We will place a GI consult for PEG placement. Continue tube feedings. 11. Lower extremity deep venous thrombosis. Continue anticoagulation, currently on hold pending tr ach placement. 12. Encephalopathy, etiology is toxic metabolic. Continue to monitor. 13. Gastrointestinal and deep vein thrombosis prophylaxis. Dictated By: AUBREE ESQUIVEL/GENOVEVA Conf#: [id number] DID#: [id number]
[2017-01-27] MEDS: COLLAGENASE 30 GM TUBE TOP SCH (12:45)
--- NOTE | 2017-01-27 13:40 | PN ---
Date/Time of Note Date/Time of Note DATE: 01/27/17 TIME: 13:40 Assessment/Plan Lines/Catheters IV Catheter Type (from Nrsg): Central Line Sifuentes in Place (from Nrsg): Yes Assessment/Plan Chief Complaint/Hosp Course IMPRESSION: Respiratory failure. RECOMMENDATIONS: We will proceed with placement of a tracheostomy. plan for surgery Tomorrow Problems: Subjective 24 Hr Interval Summary Constitutional: improved Pain Control: mild Exam/Review of Systems Vital Signs Vitals Vital Signs Date Time Temp Pulse Resp B/P Pulse Ox O2 Delivery O2 Flow Rate FiO2 01/27/17 13:00 83 17 116/61 100 Mechanical Ventilator 01/27/17 12:00 30 01/27/17 12:00 97.9 Intake and Output 01/26/17 01/26/17 01/27/17 15:00 23:00 07:00 Intake Total 32 ml 1194.0 ml 37 ml Output Total 630 ml 310 ml Balance 32 ml 564.0 ml -273 ml Exam ENMT: mucosa pink and moist, nl external ears & nose, nl lips & teeth, nl nasal mucosa & septum Neck: non-tender, supple Respiratory: clear to auscultation, normal air movement Cardiovascular: nl pulses, regular rate and rhythm Gastrointestinal: nl liver, spleen, non-tender, soft Results Result Diagram: 01/27/17 0500 01/27/17 0500 DAVID KELLER MD Jan 27, 2017 13:40
--- NOTE | 2017-01-27 14:24 | PN ---
DATE: 01/27/2017 SUBJECTIVE: No acute events overnight. The patient is lying comfortably in bed. No fevers. VITAL SIGNS: Temperature 98.2, pulse 76, respirations 20, blood pressure 109/61, saturation 100 on vent. LABORATORY DATA: WBC 7.9, H and H 10.1 and 32.4, platelets 193, BUN 33, creatinine 1.09. INDWELLINGS: Endotracheal tube, NG tube, left IJ triple lumen catheter, Sifuentes catheter, right Pore x catheter. PHYSICAL EXAMINATION: GENERAL: Well-developed, fragile, elderly woman who is in no distress. HEENT: Head atraumatic, normocephalic. Sclerae anicteric. Buccal mucosa dry. NECK: Supple. CHEST: Rise symmetrical. Breath sounds diminished to bases. HEART: S1, S2. ABDOMEN: Soft, bowel tones present. EXTREMITIES: With trace dependent edema. ASSESSMENT: 1. Status post sepsis, urinary tract infection, and pneumonia. 2. Methicillin-resistant Staphylococcus aureus nares colonization. 3. Diabetes. 4. Chronic lymphocytic leukemia. 5. History of deep venous thrombosis. PLAN: The patient remains stable. Continue present care. Observe off antibiotics. Repeat culture s p.r.n. Pending tracheostomy. Dictated By: MARIAM LINTON METAL SOLDERER for LINDSEY ALVARADO/GENOVEVA Conf#: [id number] DID#: [id number]
[2017-01-27] MEDS ORDERED: ALBUMIN HUMAN 25% 100 ML ONE (15:28)
[2017-01-27] MEDS ORDERED: ALBUMIN HUMAN 25% 100 ML IV ONE (15:30)
--- NOTE | 2017-01-27 16:24 | CONS ---
DATE OF ADMISSION: 01/10/2017 DATE OF CONSULTATION: 01/27/2017 TYPE OF CONSULTATION: Gastroenterology. REFERRING PHYSICIAN: Dr. Timo Mccracken. REASON FOR CONSULTATION: Placement of G-tube. HISTORY OF PRESENT ILLNESS: The patient is a 79-year-old female with a history of chronic lymphocyt ic leukemia, pulmonary hypertension and vent-dependent respiratory failure. He has got a severe car diomyopathy with ejection fraction of 20%, history of DVT on Lovenox who was admitted with a septic shock. The patient was at [facility] and recently discharged and was brought to the emerge ncy room at [facility] on 01/10/2017, initially required BiPAP. The patient was i n septic shock and was started on appropriate antibiotic after culture. She was on vancomycin. She has atrial fibrillation and diabetes mellitus. Patient could not be weaned off vent. She was intu bated a second time and now the GI consult is called in for replacement of G-tube and possible trach eostomy. No information can be gathered from the patient. All the information gathered by reviewin g the chart. PAST MEDICAL HISTORY: Coronary artery disease, leukemia, anemia, hypertension, hypothyroidism, obes ity, osteoporosis, diabetes mellitus, DVT and atrial fibrillation. PAST SURGICAL HISTORY: Port-A-Cath. ALLERGIC TO CEFTRIAXONE. FAMILY HISTORY: Nothing contributory. SOCIAL HISTORY: Does not smoke or drink. MEDICATIONS: All reviewed. PHYSICAL EXAMINATION GENERAL: Patient is on vent, nonverbal. CARDIOVASCULAR: No murmur. LUNGS: Air entry diminished at both bases. ABDOMEN: Benign. EXTREMITIES: No edema. CENTRAL NERVOUS SYSTEM: The patient is sedated. LABORATORY DATA: WBC is 7.9, hematocrit is 32, platelet count is 193. INR is normal. BUN is 33, c reatinine is 1. Stool for occult blood was reported negative. MEDICATIONS: All reviewed. She is on Lasix, insulin, Coreg and Lovenox. IMPRESSION: 1. Dysphagia. 2. Cardiomyopathy with ejection fraction of 20%. 3. Pulmonary hypertension. 4. Diabetes mellitus. 5. Obesity. 6. Leukemia, chronic lymphocytic. 7. Bilateral pleural effusion. 8. Deep venous thrombosis. 9. Encephalopathy. 10. Anemia. 11. Nonoliguric kidney failure. 12. Sepsis. The patient has completed the course of antibiotics. PLAN: Continue present care. We will discuss with the family. If they are in agreement, then we w ill proceed with the PEG. Dictated By: GAVIOTA VALENCIA/GENOVEVA Conf#: [id number] DID#: [id number]
[2017-01-27] MEDS: MIDAZOLAM (DRIP) 50 mg/50 mL 50 ML IV SCH (19:58)
--- NOTE | 2017-01-27 21:35 | CONS ---
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 PLAN - TRACH Septic shock. Acute decompensated heart failure. Nonoliguric acute kidney injury with unknown baseline creatinine. Etiology secondary to septic acute kidney injury, acute tubular necrosis. Mineral bone disorder. Diabetes. Continue Accu-Cheks and sliding scale. Coronary artery disease. Pulmonary hypertension. Pleural effusions with history of PleurX catheter, currently nonfunctional. Problems: Consultation Date/Type/Reason Admit Date/Time Jan 10, 2017 at 23:15 Initial Consult Date 01/11/17 Type of Consultation: [facility] Referring Provider: AUBREE PALMA DO 24 HR Interval Summary Free Text/Dictation all noted no new events Exam/Review of Systems Vital Signs Vitals Vital Signs Date Time Temp Pulse Resp B/P Pulse Ox O2 Delivery O2 Flow Rate FiO2 01/27/17 20:00 76 01/27/17 17:43 17 109/57 100 Mechanical Ventilator 01/27/17 17:15 30 01/27/17 16:00 97.8 Intake and Output 01/26/17 01/26/17 01/27/17 15:00 23:00 07:00 Intake Total 32 ml 1194.0 ml 37 ml Output Total 630 ml 310 ml Balance 32 ml 564.0 ml -273 ml Exam HEENT: Head is normocephalic. NECK: Supple. HEART: Regular rate. LUNGS: Diminished breath sounds at the base. ABDOMEN: Soft, nontender to palpation. No rebound or guarding. EXTREMITIES: Negative for clubbing, cyanosis. No edema. DERMATOLOGIC: No rashes. MUSCULOSKELETAL: No joint effusion. NEUROLOGIC: No change in exam. Results Result Diagram: 01/27/17 0500 01/27/17 0500 Results 24 hrs Laboratory Tests Test 01/26/17 23:06 01/27/17 05:00 01/27/17 05:36 01/27/17 12:44 Bedside Glucose 116 100 92 White Blood Count 7.9 Red Blood Count 3.47 L Hemoglobin 10.1 L Hematocrit 32.4 L Mean Corpuscular Volume 93.4 Mean Corpuscular Hemoglobin 29.1 Mean Corpuscular Hemoglobin Concent 31.2 L Red Cell Distribution Width 15.4 H Platelet Count 193 Mean Platelet Volume 10.8 H Neutrophils % Segmented Neutrophils % (Manual) 30 L Lymphocytes % Lymphocytes % (Manual) 60 H Reactive Lymphocytes % (Manual) 1 H Monocytes % Monocytes % (Manual) 9 Eosinophils % Basophils % Nucleated Red Blood Cells % 0.0 Neutrophils # Absolute Lymphocytes (Manual) 4.7 H Lymphocytes # Reactive Lymphocytes # 0.0 Monocytes # Absolute Monocytes (Manual) 0.7 Eosinophils # Basophils # Nucleated Red Blood Cells # Platelet Estimate NORMAL Polychromasia 3+ Poikilocytosis 1+ Anisocytosis 2+ Microcytosis 1+ Macrocytosis 1+ Sodium Level 136 Potassium Level 3.6 Chloride Level 100 Carbon Dioxide Level 30 Anion Gap 10 Blood Urea Nitrogen 33 H Creatinine 1.09 H Glucose Level 97 Calcium Level 9.5 Phosphorus Level 3.9 Magnesium Level 2.1 Total Bilirubin 0.2 Direct Bilirubin 0.00 Indirect Bilirubin 0.2 Aspartate Amino Transf (AST/SGOT) 31 Alanine Aminotransferase (ALT/SGPT) 33 Alkaline Phosphatase 56 B-Type Natriuretic Peptide 3360 H Total Protein 6.1 Albumin 3.3 Globulin 2.80 Albumin/Globulin Ratio 1.17 Test 01/27/17 18:09 01/27/17 21:24 Bedside Glucose 92 96 Medications Medications Current Medications Propofol (Diprivan) 100 ml @ 2.045 mls/ hr Q12H IV Last administered on 08:16; Admin Dose 10.227 MLS/HR; Start 01/11/17 at 01:30 Enoxaparin Sodium 70 mg 70 mg Q12 SC Last administered on 01/27/17 21:23; Admin Dose 70 MG; Start 01/11/17 at 12:30 Phenylephrine HCl/ Dextrose (Baudilio-Syneph/D5W) 250 ml @ 10 mls/hr TITRATE IV Last administered on 01/17/17 00:00; Admin Dose 7.5 MLS/HR; Start 01/12/17 at 06:00 Mupirocin (Bactroban) 1 applic BID TOP Last administered on 01/27/17 21:24; Admin Dose 1 APPLIC; Start 01/12/17 at 13:00 Morphine Sulfate (morphine) 1 mg Q4H PRN IV PAIN Last administered on 08:07; Admin Dose 1 MG; Start 01/12/17 at 19:00 Miscellaneous Information 1 ea NOTE XX ; Start 01/13/17 at 07:00 Glucose (Glutose) 15 gm Q15M PRN PO DECREASED GLUCOSE; Start 01/13/17 at 07:00 Glucose (Glutose) 22.5 gm Q15M PRN PO DECREASED GLUCOSE; Start 01/13/17 at 07: 00 Dextrose (D50w Syringe) 25 ml Q15M PRN IV DECREASED GLUCOSE; Start 01/13/17 at 07:00 Dextrose (D50w Syringe) 50 ml Q15M PRN IV DECREASED GLUCOSE; Start 01/13/17 at 07:00 Glucagon (Glucagen) 1 mg Q15M PRN IM DECREASED GLUCOSE; Start 01/13/17 at 07:00 Glucose (Glutose) 15 gm Q15M PRN BUCCAL DECREASED GLUCOSE; Start 01/13/17 at 07 :00 Carvedilol 3.125 mg 3.125 mg BID NGT Last administered on 01/24/17 20:33; Admin Dose 3.125 MG; Start 01/13/17 at 09:00 Midazolam HCl 50 ml @ 1 mls/hr TITRATE IV Last administered on 01/27/17 19:58 ; Admin Dose 2 MLS/HR; Start 01/14/17 at 12:00 Fentanyl (Sublimaze) 100 ml @ 2.5 mls/hr TITRATE IV Last administered on 09:20; Admin Dose 5 MLS/HR; Start 01/14/17 at 13:00 Nystatin (Nystatin Powder) 1 applic BID TOP Last administered on 01/27/17 21: 24; Admin Dose 1 APPLIC; Start 01/14/17 at 15:00 Potassium Chloride (Potassium Chloride Pwd/Soln) 20 meq DAILY GTB Last administered on 01/27/17 09:20; Admin Dose 20 MEQ; Start 01/21/17 at 09:00 Docusate Sodium (Colace Liquid Cup) 100 mg BID GTB Last administered on 21:24; Admin Dose 100 MG; Start 01/23/17 at 10:00 Metoclopramide HCl (Reglan) 5 mg Q6H PRN IV VOMITTING Last administered on 01/24 23:51; Admin Dose 5 MG; Start 01/24/17 at 07:00 Sodium Biphosphate/ Sodium Phosphate (Fleet Enema) 133 ml DAILY PRN [place] CONSTIPATION; Start 01/24/17 at 12:30 Collagenase (Santyl) 1 applic DAILY TOP Last administered on 01/27/17t 12:45; Admin Dose 1 APPLIC; Start 01/27/17 at 09:00 Insulin Aspart (Novolog Insulin Pen) NOVOLOG *MILD* ALGORI... Q8 SC ; Start 01/27/17 at 22:00 SE RAY MD Jan 27, 2017 21:35
[2017-01-28] VITALS (58 sets, daily range): BP systolic 89–152; BP diastolic 46–127; PULSE 66–135; RESP 0–41
[2017-01-28] MEDS: PROPOFOL 100 ML IV SCH ×2 (00:41→09:55)
[2017-01-28] MEDS: INSULIN ASPART [NOVOLOG] 3 ML PEN SC SCH ×3 (05:57→22:00)
[2017-01-28 06:09] LABS: ABNORMAL IP MESSAGE 1; HEMATOCRIT 32.7 % (37.0-47.0); HEMOGLOBIN 10.1 g/dl (12.0-16.0); MEAN CORPUSCULAR HEMOGLOBIN 28.4 pg (29.0-33.0); MEAN CORPUSCULAR HGB CONC 30.9 g/dl (32.0-37.0); MEAN CORPUSCULAR VOLUME 91.9 fl (82.0-101.0); MEAN PLATELET VOLUME 10.9 fl (7.4-10.4); PLATELET COUNT 188 10^3/UL (140-415); RED BLOOD COUNT 3.56 10^6/ul (4.20-5.40); RED CELL DISTRIBUTION WIDTH 15.5 % (11.5-14.5); WHITE BLOOD COUNT 7.4 10^3/ul (4.8-10.8)
[2017-01-28 06:46] LABS: CALCIUM 9.8 mg/dl (8.4-10.2); CREATININE 1.08 mg/dl (0.44-1.00); MAGNESIUM 2.1 mg/dl (1.7-2.5); PHOSPHORUS 3.8 mg/dl (2.5-4.9); POTASSIUM 3.6 mmol/L (3.5-5.1)
[2017-01-28] MEDS ORDERED: PROPOFOL 200 MG INJ ONE (07:00)
[2017-01-28] MEDS ORDERED: LIDOCAINE 2% (SDV) 5 ML INJ ONE (07:00)
[2017-01-28 07:04] LABS: POSITIVE DIFF @See below
[2017-01-28] MEDS: POTASSIUM CHLORIDE 20 MEQ POWDER FOR ORAL SOLN GTB SCH (08:22)
[2017-01-28] MEDS: NYSTATIN 30 GM POWDER BTL TOP SCH ×2 (08:22→20:27)
[2017-01-28] MEDS: MUPIROCIN 2% 22 GM OINT TOP SCH ×2 (08:22→20:27)
[2017-01-28] MEDS: DOCUSATE SODIUM 10 MG/ML (10ML CUP) GTB SCH ×2 (08:22→20:26)
[2017-01-28] MEDS: ENOXAPARIN 80 MG/0.8 ML SYG SC SCH ×2 (08:22→20:27)
[2017-01-28] MEDS: COLLAGENASE 30 GM TUBE TOP SCH (08:23)
[2017-01-28 09:01] LABS: ANISOCYTOSIS 1+ (0-0); BURR CELLS 1+ (0-0); GIANT THROMBO% (M) 2 % (0-0); HYPOCHROMASIA 1+ (0-0); MONOCYTES % (M) 13 % (0-11); PLATELET ESTIMATE NORMAL; POIKILOCYTOSIS 1+ (0-0); POLYCHROMASIA 1+ (0-0); TEAR DROP CELLS 1+ (0-0)
[2017-01-28] MEDS ORDERED: LIDOCAINE 2%/EPI 30 ML INJ ONE (10:22)
[2017-01-28] MEDS ORDERED: FENTAnyl 50 MCG/ML VIAL ONE (10:47)
--- NOTE | 2017-01-28 10:51 | CONS ---
Date/Time of Note Date/Time of Note DATE: 01/28/17 TIME: 10:49 Consult Date/Type/Reason Admit Date/Time Jan 10, 2017 at 23:15 Initial Consult Date 01/11/17 Type of Consultation: Pulmonary Ordering Provider: AUBREE PALMA DO Subjective Patient awake alert comfortable orally intubated. Attempted CPAP trial this morning patient had a low volumes with increased work of breathing. Objective Vital Signs Date Time Temp Pulse Resp B/P Pulse Ox O2 Delivery O2 Flow Rate FiO2 01/28/17 09:30 92 41 122/60 100 CPAP Mechanical Ventilator 01/28/17 08:00 30 01/28/17 07:30 97.7 Intake and Output 01/27/17 01/27/17 01/28/17 15:00 23:00 07:00 Intake Total 39.0 ml 498.5 ml 35.0 ml Output Total 350 ml 720 ml 360 ml Balance -311.0 ml -221.5 ml -325.0 ml Exam PHYSICAL EXAMINATION GENERAL: Elderly lady orally intubated on mechanical ventilation VITAL SIGNS: see below. HEENT: Pupils equal, round, and reactive to light. CARDIAC: S1, S2, 1/6 systolic ejection murmur CHEST: Diminished air entry bilaterally. ABDOMEN: Mildly distended. Bowel sounds present no guarding or rebound EXTREMITIES: No cyanosis, clubbing edema +1 NEUROLOGIC: Generalized weakness Results/Medications Result Diagram: 01/28/17 0500 01/28/17 0500 Results 24 hrs Laboratory Tests Test 01/27/17 12:44 01/27/17 18:09 01/27/17 21:24 01/28/17 05:00 Bedside Glucose 92 92 96 White Blood Count 7.4 Red Blood Count 3.56 L Hemoglobin 10.1 L Hematocrit 32.7 L Mean Corpuscular Volume 91.9 Mean Corpuscular Hemoglobin 28.4 L Mean Corpuscular Hemoglobin Concent 30.9 L Red Cell Distribution Width 15.5 H Platelet Count 188 Mean Platelet Volume 10.9 H Neutrophils % Segmented Neutrophils % (Manual) 26 L Lymphocytes % Lymphocytes % (Manual) 61 H Monocytes % Monocytes % (Manual) 13 H Eosinophils % Basophils % Nucleated Red Blood Cells % 0.0 Neutrophils # Absolute Lymphocytes (Manual) 4.5 H Lymphocytes # Monocytes # Absolute Monocytes (Manual) 0.9 Eosinophils # Basophils # Nucleated Red Blood Cells # Platelet Estimate NORMAL Giant Platelets 2 H Polychromasia 1+ Hypochromasia 1+ Poikilocytosis 1+ Anisocytosis 1+ Tear Drop Cells 1+ Sodium Level 140 Potassium Level 3.6 Chloride Level 102 Carbon Dioxide Level 28 Anion Gap 14 Blood Urea Nitrogen 29 H Creatinine 1.08 H Glucose Level 85 Calcium Level 9.8 Phosphorus Level 3.8 Magnesium Level 2.1 Test 01/28/17 05:06 Bedside Glucose 97 Medications Current Medications Propofol (Diprivan) 100 ml @ 2.045 mls/ hr Q12H IV Last administered on 08:16; Admin Dose 10.227 MLS/HR; Start 01/11/17 at 01:30 Enoxaparin Sodium 70 mg 70 mg Q12 SC Last administered on 01/27/17 21:23; Admin Dose 70 MG; Start 01/11/17 at 12:30 Phenylephrine HCl/ Dextrose (Baudilio-Syneph/D5W) 250 ml @ 10 mls/hr TITRATE IV Last administered on 01/17/17 00:00; Admin Dose 7.5 MLS/HR; Start 01/12/17 at 06:00 Mupirocin (Bactroban) 1 applic BID TOP Last administered on 01/28/17 08:22; Admin Dose 1 APPLIC; Start 01/12/17 at 13:00 Morphine Sulfate (morphine) 1 mg Q4H PRN IV PAIN Last administered on 08:07; Admin Dose 1 MG; Start 01/12/17 at 19:00 Miscellaneous Information 1 ea NOTE XX ; Start 01/13/17 at 07:00 Glucose (Glutose) 15 gm Q15M PRN PO DECREASED GLUCOSE; Start 01/13/17 at 07:00 Glucose (Glutose) 22.5 gm Q15M PRN PO DECREASED GLUCOSE; Start 01/13/17 at 07: 00 Dextrose (D50w Syringe) 25 ml Q15M PRN IV DECREASED GLUCOSE; Start 01/13/17 at 07:00 Dextrose (D50w Syringe) 50 ml Q15M PRN IV DECREASED GLUCOSE; Start 01/13/17 at 07:00 Glucagon (Glucagen) 1 mg Q15M PRN IM DECREASED GLUCOSE; Start 01/13/17 at 07:00 Glucose (Glutose) 15 gm Q15M PRN BUCCAL DECREASED GLUCOSE; Start 01/13/17 at 07 :00 Carvedilol 3.125 mg 3.125 mg BID NGT Last administered on 01/28/17 09:54; Admin Dose 3.125 MG; Start 01/13/17 at 09:00 Midazolam HCl 50 ml @ 1 mls/hr TITRATE IV Last administered on 01/27/17 19:58 ; Admin Dose 2 MLS/HR; Start 01/14/17 at 12:00 Fentanyl (Sublimaze) 100 ml @ 2.5 mls/hr TITRATE IV Last administered on 09:20; Admin Dose 5 MLS/HR; Start 01/14/17 at 13:00 Nystatin (Nystatin Powder) 1 applic BID TOP Last administered on 01/28/17 08: 22; Admin Dose 1 APPLIC; Start 01/14/17 at 15:00 Potassium Chloride (Potassium Chloride Pwd/Soln) 20 meq DAILY GTB Last administered on 01/28/17 08:22; Admin Dose 20 MEQ; Start 01/21/17 at 09:00 Docusate Sodium (Colace Liquid Cup) 100 mg BID GTB Last administered on 08:22; Admin Dose 100 MG; Start 01/23/17 at 10:00 Metoclopramide HCl (Reglan) 5 mg Q6H PRN IV VOMITTING Last administered on 01/24 23:51; Admin Dose 5 MG; Start 01/24/17 at 07:00 Sodium Biphosphate/ Sodium Phosphate (Fleet Enema) 133 ml DAILY PRN [place] CONSTIPATION; Start 01/24/17 at 12:30 Collagenase (Santyl) 1 applic DAILY TOP Last administered on 01/28/17 08:23; Admin Dose 1 APPLIC; Start 01/27/17 at 09:00 Insulin Aspart (Novolog Insulin Pen) NOVOLOG *MILD* ALGORI... Q8 SC ; Start 01/27/17 at 22:00 Assessment/Plan Chief Complaint/Hosp Course Assessment 1. Hypoxemic respiratory failure. W failed multiple weaning trials tracheostomy today 2. Pleural effusion right lung. Pleurx catheter in place. 3. Resolved encephalopathy 4. History of CLL 5. History of deep vein thrombosis Plan 1. Tracheostomy today. 2. Pleurx catheter Plan as noted. 3. Resume tube feeding. 4. DVT GI prophylaxis Will require transfer to [facility] following tracheostomy and PEG tube Problems: [facility]RBINA [facility] Jan 28, 2017 10:51
[2017-01-28] MEDS ORDERED: LIDOCAINE 2%/EPI (MDV) 20ML INJ INJ ONE (11:00)
--- NOTE | 2017-01-28 11:31 | OPR ---
Date/Time of Note Date/Time of Note DATE: 01/28/17 TIME: 11:29 Operative Report Procedure Date: Jan 28, 2017 Preoperative Diagnosis Resp failure Postoperative Diagnosis same Operation/Procedure Performed Tracheostomy Surgeon see signature line Vocational Rehabilitation Administrator none Anesthesia Type: general Estimated Blood Loss: none Transfusion none Specimen none Grafts/Implants none Tubes/Drains none Complications none Pt Condition Post Procedure: critical Indications Resp failure Procedure Description Dictated DAVID KELLER MD Jan 28, 2017 11:31
--- NOTE | 2017-01-28 12:41 | PN ---
DATE: 01/28/2017 SUBJECTIVE: The patient remains critically ill. The patient is pending tracheostomy placement. No other events noted. OBJECTIVE: VITAL SIGNS: Blood pressure is 120/73, respirations 25, pulse 80, temperature 97.7. HEENT: Head is normocephalic. NECK: Supple. HEART: Regular rate. LUNGS: Show diminished breath sounds at the base. ABDOMEN: Soft, nontender to palpation without rebound or guarding. EXTREMITIES: Negative for clubbing, cyanosis, no edema. DERMATOLOGIC: No rashes. MUSCULOSKELETAL: No joint effusions. NEUROLOGIC: No change in exam. MEDICATIONS: The patient's medications have been reviewed. LABORATORY DATA: Shows white count of 7.4, hemoglobin 10.1, hematocrit 32.7, platelet count is 188. Sodium 140, potassium 3.6, chloride 102, BUN 29, creatinine 1.08. ASSESSMENT AND PLAN: 1. Nontender dependent respiratory failure. The patient has failed multiple weaning attempts, pend ing trach placement. 2. Sepsis, status post shock. The patient is completing antibiotic course. 3. Decompensated heart failure. The patient appears euvolemic. Will continue to hold diuretic the rapy. 4. Nonoliguric acute kidney injury with unknown baseline creatinine. Etiology is secondary to seps is. Renal function has stabilized. Continue to monitor. 5. Mineral bone disorder. Continue to monitor calcium and phosphorus levels. 6. Dysphagia. The patient is pending PEG tube placement. Will continue tube feeding. 7. Diabetes, continue Accu-Cheks and sliding scale. 8. Coronary artery disease. Continue medical management. 9. Pulmonary hypertension. Continue current treatment plan. 10. Bilateral pleural effusion. 11. Lower extremity deep venous thrombosis. Continue anticoagulation. 12. Encephalopathy. Etiology is possibly metabolic. Continue to monitor. 13. Gastrointestinal and deep venous thrombosis prophylaxis. DISPOSITION: We will place a Chaudhry evaluation once the patient's trach and PEG are placed. Dictated By: AUBREE ESQUIVEL/GENOVEVA Conf#: [id number] DID#: [id number]
--- NOTE | 2017-01-28 13:45 | CONS ---
Date/Time of Note Date/Time of Note DATE: 01/28/17 TIME: 13:44 Assessment/Plan Assessment/Plan Additional Assessment/Plan IMPRESSION: 1. Dysphagia. 2. Cardiomyopathy with ejection fraction of 20%. 3. Pulmonary hypertension. 4. Diabetes mellitus. 5. Obesity. 6. Leukemia, chronic lymphocytic. 7. Bilateral pleural effusion. 8. Deep venous thrombosis. 9. Encephalopathy. 10. Anemia. 11. Nonoliguric kidney failure. 12. Sepsis. The patient has completed the course of antibiotics. PLAN: Continue present care. We will discuss with the family. If they are in agreement, then we will proceed with the PEG. Discussed with the [id number] and has agreed for the PEG. Patient is scheduled for G-tube on Tuesday Consultation Date/Type/Reason Admit Date/Time Jan 10, 2017 at 23:15 Initial Consult Date 01/10/17 Type of Consultation: Pulmonary Referring Provider: AUBREE PALMA DO 24 HR Interval Summary Subjective hx not possible: pt non-verbal, pt critical Exam/Review of Systems Vital Signs Vitals Vital Signs Date Time Temp Pulse Resp B/P Pulse Ox O2 Delivery O2 Flow Rate FiO2 01/28/17 13:30 112 16 99 Mechanical Ventilator 01/28/17 11:30 97.4 01/28/17 08:00 30 Intake and Output 01/27/17 01/27/17 01/28/17 15:00 23:00 07:00 Intake Total 39.0 ml 498.5 ml 35.0 ml Output Total 350 ml 720 ml 360 ml Balance -311.0 ml -221.5 ml -325.0 ml Exam Respiratory: other (Tracheostomy done today) Cardiovascular: nl pulses, regular rate and rhythm Gastrointestinal: nl liver, spleen, non-tender, soft Extremities: normal pulses Neurological: lethargic Results Result Diagram: 01/28/17 0500 01/28/17 0500 Results 24 hrs Laboratory Tests Test 01/27/17 18:09 01/27/17 21:24 01/28/17 05:00 01/28/17 05:06 Bedside Glucose 92 96 97 White Blood Count 7.4 Red Blood Count 3.56 L Hemoglobin 10.1 L Hematocrit 32.7 L Mean Corpuscular Volume 91.9 Mean Corpuscular Hemoglobin 28.4 L Mean Corpuscular Hemoglobin Concent 30.9 L Red Cell Distribution Width 15.5 H Platelet Count 188 Mean Platelet Volume 10.9 H Neutrophils % Segmented Neutrophils % (Manual) 26 L Lymphocytes % Lymphocytes % (Manual) 61 H Monocytes % Monocytes % (Manual) 13 H Eosinophils % Basophils % Nucleated Red Blood Cells % 0.0 Neutrophils # Absolute Lymphocytes (Manual) 4.5 H Lymphocytes # Monocytes # Absolute Monocytes (Manual) 0.9 Eosinophils # Basophils # Nucleated Red Blood Cells # Platelet Estimate NORMAL Giant Platelets 2 H Polychromasia 1+ Hypochromasia 1+ Poikilocytosis 1+ Anisocytosis 1+ Tear Drop Cells 1+ Sodium Level 140 Potassium Level 3.6 Chloride Level 102 Carbon Dioxide Level 28 Anion Gap 14 Blood Urea Nitrogen 29 H Creatinine 1.08 H Glucose Level 85 Calcium Level 9.8 Phosphorus Level 3.8 Magnesium Level 2.1 Test 01/28/17 13:30 Bedside Glucose 102 Medications Medications Current Medications Propofol (Diprivan) 100 ml @ 2.045 mls/ hr Q12H IV Last administered on 08:16; Admin Dose 10.227 MLS/HR; Start 01/11/17 at 01:30 Enoxaparin Sodium 70 mg 70 mg Q12 SC Last administered on 01/27/17 21:23; Admin Dose 70 MG; Start 01/11/17 at 12:30 Phenylephrine HCl/ Dextrose (Baudilio-Syneph/D5W) 250 ml @ 10 mls/hr TITRATE IV Last administered on 01/17/17 00:00; Admin Dose 7.5 MLS/HR; Start 01/12/17 at 06:00 Mupirocin (Bactroban) 1 applic BID TOP Last administered on 01/28/17 08:22; Admin Dose 1 APPLIC; Start 01/12/17 at 13:00 Morphine Sulfate (morphine) 1 mg Q4H PRN IV PAIN Last administered on 08:07; Admin Dose 1 MG; Start 01/12/17 at 19:00 Miscellaneous Information 1 ea NOTE XX ; Start 01/13/17 at 07:00 Glucose (Glutose) 15 gm Q15M PRN PO DECREASED GLUCOSE; Start 01/13/17 at 07:00 Glucose (Glutose) 22.5 gm Q15M PRN PO DECREASED GLUCOSE; Start 01/13/17 at 07: 00 Dextrose (D50w Syringe) 25 ml Q15M PRN IV DECREASED GLUCOSE; Start 01/13/17 at 07:00 Dextrose (D50w Syringe) 50 ml Q15M PRN IV DECREASED GLUCOSE; Start 01/13/17 at 07:00 Glucagon (Glucagen) 1 mg Q15M PRN IM DECREASED GLUCOSE; Start 01/13/17 at 07:00 Glucose (Glutose) 15 gm Q15M PRN BUCCAL DECREASED GLUCOSE; Start 01/13/17 at 07 :00 Carvedilol 3.125 mg 3.125 mg BID NGT Last administered on 01/28/17 09:54; Admin Dose 3.125 MG; Start 01/13/17 at 09:00 Midazolam HCl 50 ml @ 1 mls/hr TITRATE IV Last administered on 01/27/17 19:58 ; Admin Dose 2 MLS/HR; Start 01/14/17 at 12:00 Fentanyl (Sublimaze) 100 ml @ 2.5 mls/hr TITRATE IV Last administered on 09:20; Admin Dose 5 MLS/HR; Start 01/14/17 at 13:00 Nystatin (Nystatin Powder) 1 applic BID TOP Last administered on 01/28/17 08: 22; Admin Dose 1 APPLIC; Start 01/14/17 at 15:00 Potassium Chloride (Potassium Chloride Pwd/Soln) 20 meq DAILY GTB Last administered on 01/28/17 08:22; Admin Dose 20 MEQ; Start 01/21/17 at 09:00 Docusate Sodium (Colace Liquid Cup) 100 mg BID GTB Last administered on 08:22; Admin Dose 100 MG; Start 01/23/17 at 10:00 Metoclopramide HCl (Reglan) 5 mg Q6H PRN IV VOMITTING Last administered on 01/24 23:51; Admin Dose 5 MG; Start 01/24/17 at 07:00 Sodium Biphosphate/ Sodium Phosphate (Fleet Enema) 133 ml DAILY PRN [place] CONSTIPATION; Start 01/24/17 at 12:30 Collagenase (Santyl) 1 applic DAILY TOP Last administered on 01/28/17 08:23; Admin Dose 1 APPLIC; Start 01/27/17 at 09:00 Insulin Aspart (Novolog Insulin Pen) NOVOLOG *MILD* ALGORI... Q8 SC ; Start 01/27/17 at 22:00 GAVIOTA ALLEN MD Jan 28, 2017 13:45
--- NOTE | 2017-01-28 14:46 | CONS ---
Date/Time of Note Date/Time of Note DATE: 01/28/17 TIME: 14:46 Assessment/Plan Assessment/Plan Chief Complaint/Hosp Course CLL- ON TREATMENT post chemo TREATMENT - ON HOLD ANEMIA MONITOR BLOOD COUNT CLOSELY OBSERVE FOR BLEEDING AND HEMOLYSIS STOOL OB -P TRANSFUSE PRBC NEEDED Respiratory failure. PLAN - TRACH Septic shock. Acute decompensated heart failure. Nonoliguric acute kidney injury with unknown baseline creatinine. Etiology secondary to septic acute kidney injury, acute tubular necrosis. Mineral bone disorder. Diabetes. Continue Accu-Cheks and sliding scale. Coronary artery disease. Pulmonary hypertension. Pleural effusions with history of PleurX catheter, currently nonfunctional. Problems: Consultation Date/Type/Reason Admit Date/Time Jan 10, 2017 at 23:15 Initial Consult Date 01/11/17 Type of Consultation: [facility] Referring Provider: AUBREE PALMA DO 24 HR Interval Summary Free Text/Dictation all noted Exam/Review of Systems Vital Signs Vitals Vital Signs Date Time Temp Pulse Resp B/P Pulse Ox O2 Delivery O2 Flow Rate FiO2 01/28/17 13:45 96 16 99 30 01/28/17 13:30 Mechanical Ventilator 01/28/17 11:30 97.4 Intake and Output 01/27/17 01/27/17 01/28/17 15:00 23:00 07:00 Intake Total 39.0 ml 498.5 ml 35.0 ml Output Total 350 ml 720 ml 360 ml Balance -311.0 ml -221.5 ml -325.0 ml Exam HEENT: Head is normocephalic. NECK: Supple. HEART: Regular rate. LUNGS: Diminished breath sounds at the base. ABDOMEN: Soft, nontender to palpation. No rebound or guarding. EXTREMITIES: Negative for clubbing, cyanosis. No edema. DERMATOLOGIC: No rashes. MUSCULOSKELETAL: No joint effusion. NEUROLOGIC: No change in exam. Results Result Diagram: 01/28/17 0500 01/28/17 0500 Results 24 hrs Laboratory Tests Test 01/27/17 18:09 01/27/17 21:24 01/28/17 05:00 01/28/17 05:06 Bedside Glucose 92 96 97 White Blood Count 7.4 Red Blood Count 3.56 L Hemoglobin 10.1 L Hematocrit 32.7 L Mean Corpuscular Volume 91.9 Mean Corpuscular Hemoglobin 28.4 L Mean Corpuscular Hemoglobin Concent 30.9 L Red Cell Distribution Width 15.5 H Platelet Count 188 Mean Platelet Volume 10.9 H Neutrophils % Segmented Neutrophils % (Manual) 26 L Lymphocytes % Lymphocytes % (Manual) 61 H Monocytes % Monocytes % (Manual) 13 H Eosinophils % Basophils % Nucleated Red Blood Cells % 0.0 Neutrophils # Absolute Lymphocytes (Manual) 4.5 H Lymphocytes # Monocytes # Absolute Monocytes (Manual) 0.9 Eosinophils # Basophils # Nucleated Red Blood Cells # Platelet Estimate NORMAL Giant Platelets 2 H Polychromasia 1+ Hypochromasia 1+ Poikilocytosis 1+ Anisocytosis 1+ Tear Drop Cells 1+ Sodium Level 140 Potassium Level 3.6 Chloride Level 102 Carbon Dioxide Level 28 Anion Gap 14 Blood Urea Nitrogen 29 H Creatinine 1.08 H Glucose Level 85 Calcium Level 9.8 Phosphorus Level 3.8 Magnesium Level 2.1 Test 01/28/17 13:30 Bedside Glucose 102 Medications Medications Current Medications Propofol (Diprivan) 100 ml @ 2.045 mls/ hr Q12H IV Last administered on 08:16; Admin Dose 10.227 MLS/HR; Start 01/11/17 at 01:30 Enoxaparin Sodium 70 mg 70 mg Q12 SC Last administered on 01/27/17 21:23; Admin Dose 70 MG; Start 01/11/17 at 12:30 Phenylephrine HCl/ Dextrose (Baudilio-Syneph/D5W) 250 ml @ 10 mls/hr TITRATE IV Last administered on 01/17/17 00:00; Admin Dose 7.5 MLS/HR; Start 01/12/17 at 06:00 Mupirocin (Bactroban) 1 applic BID TOP Last administered on 01/28/17 08:22; Admin Dose 1 APPLIC; Start 01/12/17 at 13:00 Morphine Sulfate (morphine) 1 mg Q4H PRN IV PAIN Last administered on 08:07; Admin Dose 1 MG; Start 01/12/17 at 19:00 Miscellaneous Information 1 ea NOTE XX ; Start 01/13/17 at 07:00 Glucose (Glutose) 15 gm Q15M PRN PO DECREASED GLUCOSE; Start 01/13/17 at 07:00 Glucose (Glutose) 22.5 gm Q15M PRN PO DECREASED GLUCOSE; Start 01/13/17 at 07: 00 Dextrose (D50w Syringe) 25 ml Q15M PRN IV DECREASED GLUCOSE; Start 01/13/17 at 07:00 Dextrose (D50w Syringe) 50 ml Q15M PRN IV DECREASED GLUCOSE; Start 01/13/17 at 07:00 Glucagon (Glucagen) 1 mg Q15M PRN IM DECREASED GLUCOSE; Start 01/13/17 at 07:00 Glucose (Glutose) 15 gm Q15M PRN BUCCAL DECREASED GLUCOSE; Start 01/13/17 at 07 :00 Carvedilol 3.125 mg 3.125 mg BID NGT Last administered on 01/28/17 09:54; Admin Dose 3.125 MG; Start 01/13/17 at 09:00 Midazolam HCl 50 ml @ 1 mls/hr TITRATE IV Last administered on 01/27/17 19:58 ; Admin Dose 2 MLS/HR; Start 01/14/17 at 12:00 Fentanyl (Sublimaze) 100 ml @ 2.5 mls/hr TITRATE IV Last administered on 09:20; Admin Dose 5 MLS/HR; Start 01/14/17 at 13:00 Nystatin (Nystatin Powder) 1 applic BID TOP Last administered on 01/28/17 08: 22; Admin Dose 1 APPLIC; Start 01/14/17 at 15:00 Potassium Chloride (Potassium Chloride Pwd/Soln) 20 meq DAILY GTB Last administered on 01/28/17 08:22; Admin Dose 20 MEQ; Start 01/21/17 at 09:00 Docusate Sodium (Colace Liquid Cup) 100 mg BID GTB Last administered on 08:22; Admin Dose 100 MG; Start 01/23/17 at 10:00 Metoclopramide HCl (Reglan) 5 mg Q6H PRN IV VOMITTING Last administered on 01/24 23:51; Admin Dose 5 MG; Start 01/24/17 at 07:00 Sodium Biphosphate/ Sodium Phosphate (Fleet Enema) 133 ml DAILY PRN OR CONSTIPATION; Start 01/24/17 at 12:30 Collagenase (Santyl) 1 applic DAILY TOP Last administered on 01/28/17 08:23; Admin Dose 1 APPLIC; Start 01/27/17 at 09:00 Insulin Aspart (Novolog Insulin Pen) NOVOLOG *MILD* ALGORI... Q8 SC ; Start 01/27/17 at 22:00 SE RAY MD Jan 28, 2017 14:46
[2017-01-28] MEDS: FENTAnyl (DRIP) 1000 mcg/100mL 100 ML IV SCH (15:02)
[2017-01-28] MEDS: MIDAZOLAM (DRIP) 50 mg/50 mL 50 ML IV SCH (15:08)
--- NOTE | 2017-01-28 16:42 | PN ---
DATE: 01/28/2017 INFECTIOUS DISEASE PROGRESS NOTE SUBJECTIVE: No events overnight. The patient is lying comfortably in bed. No fevers. VITAL SIGNS: Temperature 97.7, pulse 80, respirations 25, blood pressure 120/70, saturation 100 on vent. WBC 7.4, H and H 10.1 and 32.7, platelets 188. BUN 29, creatinine 1.08. INDWELLINGS: Endotracheal tube, NG tube, Sifuentes, left IJ triple lumen catheter and PleurX catheter o n the right. PHYSICAL EXAMINATION: GENERAL: Well-developed elderly woman in no distress. HEENT: Head atraumatic, normocephalic. Sclerae anicteric. Buccal mucosa dry. NECK: Supple. CHEST: Rise symmetrical. Breath sounds diminished to bases. HEART: S1, S2. ABDOMEN: Soft, bowel tones present. EXTREMITIES: Without cyanosis. ASSESSMENT: 1. Status post septic shock, urinary tract infection, pneumonia. 2. Respiratory failure. 3. Chronic lymphocytic leukemia, status post chemotherapy. 4. Diabetes. 5. History of deep venous thrombosis. 6. Recurrent pleural effusion status post PleurX catheter. PLAN: The patient remains stable, completed antibiotics. Continue present care pending trach and P EG. Dictated By: MARIAM LINTON CIVIL ENGINEERING TECHNICIAN for LINDSEY ALVARADO/GENOVEVA Conf#: [id number] DID#: [id number]
--- NOTE | 2017-01-28 16:45 | OPR ---
DATE OF OPERATION: 01/28/2017 PREOPERATIVE DIAGNOSIS: Respiratory failure. POSTOPERATIVE DIAGNOSIS: Respiratory failure. OPERATION PERFORMED: Tracheostomy. SURGEON: David Louie MD ANESTHESIA: Local. CONSENT: Risks, benefits, complications, alternative therapies explained to the patient and the jenny anna, consent obtained. ANESTHESIA: General. OPERATIVE TECHNIQUE: The patient was placed in supine position, timeout was called. A 2 cm incisio n was made, one fingerbreadth superior to the sternal notch in horizontal fashion. Incision was cm en down to the subcutaneous tissue which was then opened using Metzenbaum scissors. Access was gain ed into the trachea. Guidewire was advanced through without any difficulty. Subcutaneous tissues d ilated. Endotracheal tube removed, 8 cuffed tracheostomy tube was advanced into the trachea, secure d to skin using to 4 loose 4-0 nylon sutures and a trach tie. Patient tolerated procedure well. Dictated By: DAVID OCHOA/GENOVEVA Conf#: [id number] DID#: [id number]
[2017-01-28] MEDS: DEXTROSE 5%-0.45% NACL 1,000 ML IV SCH (17:39)
--- NOTE | 2017-01-28 18:11 | CONS ---
Date/Time of Note Date/Time of Note DATE: 01/28/17 TIME: 18:08 Consult Date/Type/Reason Admit Date/Time Jan 10, 2017 at 23:15 Initial Consult Date 01/11/17 Type of Consultation: CARDIOLOGY Ordering Provider: AUBREE PALMA DO Subjective CARDIOLOGY follow up note S: D/W staff and rhythm was reviewed. pt remains in afib. HR has been under good control for the most part. d/w Dr Laws she is still on vent in ICU. pt is nonverbal. S/P Trach 01/28/17 her old records were extensively reviewed pt's EF was normal at 50-55% on 01/01/17 O: gen: s/p trach on vent HEENT: Pupils are equal NECK: no stridor. s/p trach CV: irregularly irregular. systolic murmur pulm: + mild rhonchi. diffuse. Chest: s/p plurodex right side GI: soft NT ND. no rebound. no guarding ext: + trace LE edema neuro: awake and follows commands. Derm: multiple echymosis psych; anxious ECG reviewed: afib RVR. ant infarct. ECHO 01/11/17reviewed personally: 1. Normal left ventricular cavity size. Normal left ventricular wall thickness. Severe left ventricular systolic dysfunction. Ejection fraction is visually estimated at 25 %. Multiple segmental wall motion abnormalities. 2. There is mild enlargement of left atrium. 3. Mild mitral leaflet calcification. Mild mitral annular calcification. Mild mitral valve regurgitation. 4. Aortic sclerosis without stenosis. Trace aortic valve regurgitation. 5. Normal appearance of the tricuspid valve. Estimated peak PA systolic pressure 53 mmHg. There is mild tricuspid regurgitation. 6. Inferior vena cava without respiratory collapse, however, patient on ventilator. ECHO 01/01/17: per review of old charts. EF 50-55%. LAE. MOD/ SEVERE MR. Objective Vital Signs Date Time Temp Pulse Resp B/P Pulse Ox O2 Delivery O2 Flow Rate FiO2 01/28/17 16:50 96 16 100 30 01/28/17 16:00 105/59 Mechanical Ventilator 01/28/17 15:30 97.9 Intake and Output 01/27/17 01/27/17 01/28/17 15:00 23:00 07:00 Intake Total 39.0 ml 498.5 ml 35.0 ml Output Total 350 ml 720 ml 360 ml Balance -311.0 ml -221.5 ml -325.0 ml Results/Medications Result Diagram: 01/28/17 0500 01/28/17 0500 Results 24 hrs Laboratory Tests Test 01/27/17 18:09 01/27/17 21:24 01/28/17 05:00 01/28/17 05:06 Bedside Glucose 92 96 97 White Blood Count 7.4 Red Blood Count 3.56 L Hemoglobin 10.1 L Hematocrit 32.7 L Mean Corpuscular Volume 91.9 Mean Corpuscular Hemoglobin 28.4 L Mean Corpuscular Hemoglobin Concent 30.9 L Red Cell Distribution Width 15.5 H Platelet Count 188 Mean Platelet Volume 10.9 H Neutrophils % Segmented Neutrophils % (Manual) 26 L Lymphocytes % Lymphocytes % (Manual) 61 H Monocytes % Monocytes % (Manual) 13 H Eosinophils % Basophils % Nucleated Red Blood Cells % 0.0 Neutrophils # Absolute Lymphocytes (Manual) 4.5 H Lymphocytes # Monocytes # Absolute Monocytes (Manual) 0.9 Eosinophils # Basophils # Nucleated Red Blood Cells # Platelet Estimate NORMAL Giant Platelets 2 H Polychromasia 1+ Hypochromasia 1+ Poikilocytosis 1+ Anisocytosis 1+ Tear Drop Cells 1+ Sodium Level 140 Potassium Level 3.6 Chloride Level 102 Carbon Dioxide Level 28 Anion Gap 14 Blood Urea Nitrogen 29 H Creatinine 1.08 H Glucose Level 85 Calcium Level 9.8 Phosphorus Level 3.8 Magnesium Level 2.1 Test 01/28/17 13:30 Bedside Glucose 102 Medications Current Medications Propofol (Diprivan) 100 ml @ 2.045 mls/ hr Q12H IV Last administered on 08:16; Admin Dose 10.227 MLS/HR; Start 01/11/17 at 01:30 Enoxaparin Sodium 70 mg 70 mg Q12 SC Last administered on 01/27/17 21:23; Admin Dose 70 MG; Start 01/11/17 at 12:30 Phenylephrine HCl/ Dextrose (Baudilio-Syneph/D5W) 250 ml @ 10 mls/hr TITRATE IV Last administered on 01/17/17 00:00; Admin Dose 7.5 MLS/HR; Start 01/12/17 at 06:00 Mupirocin (Bactroban) 1 applic BID TOP Last administered on 01/28/17 08:22; Admin Dose 1 APPLIC; Start 01/12/17 at 13:00 Morphine Sulfate (morphine) 1 mg Q4H PRN IV PAIN Last administered on 08:07; Admin Dose 1 MG; Start 01/12/17 at 19:00 Miscellaneous Information 1 ea NOTE XX ; Start 01/13/17 at 07:00 Glucose (Glutose) 15 gm Q15M PRN PO DECREASED GLUCOSE; Start 01/13/17 at 07:00 Glucose (Glutose) 22.5 gm Q15M PRN PO DECREASED GLUCOSE; Start 01/13/17 at 07: 00 Dextrose (D50w Syringe) 25 ml Q15M PRN IV DECREASED GLUCOSE; Start 01/13/17 at 07:00 Dextrose (D50w Syringe) 50 ml Q15M PRN IV DECREASED GLUCOSE; Start 01/13/17 at 07:00 Glucagon (Glucagen) 1 mg Q15M PRN IM DECREASED GLUCOSE; Start 01/13/17 at 07:00 Glucose (Glutose) 15 gm Q15M PRN BUCCAL DECREASED GLUCOSE; Start 01/13/17 at 07 :00 Carvedilol 3.125 mg 3.125 mg BID NGT Last administered on 01/28/17 09:54; Admin Dose 3.125 MG; Start 01/13/17 at 09:00 Midazolam HCl 50 ml @ 1 mls/hr TITRATE IV Last administered on 01/28/17 15:08 ; Admin Dose 2 MLS/HR; Start 01/14/17 at 12:00 Fentanyl (Sublimaze) 100 ml @ 2.5 mls/hr TITRATE IV Last administered on 15:02; Admin Dose 5 MLS/HR; Start 01/14/17 at 13:00 Nystatin (Nystatin Powder) 1 applic BID TOP Last administered on 01/28/17 08: 22; Admin Dose 1 APPLIC; Start 01/14/17 at 15:00 Potassium Chloride (Potassium Chloride Pwd/Soln) 20 meq DAILY GTB Last administered on 01/28/17 08:22; Admin Dose 20 MEQ; Start 01/21/17 at 09:00 Docusate Sodium (Colace Liquid Cup) 100 mg BID GTB Last administered on 08:22; Admin Dose 100 MG; Start 10/1/17 at 10:00 Metoclopramide HCl (Reglan) 5 mg Q6H PRN IV VOMITTING Last administered on 01/24 23:51; Admin Dose 5 MG; Start 01/24/17 at 07:00 Sodium Biphosphate/ Sodium Phosphate (Fleet Enema) 133 ml DAILY PRN DE CONSTIPATION; Start 01/24/17 at 12:30 Collagenase (Santyl) 1 applic DAILY TOP Last administered on 01/28/17 08:23; Admin Dose 1 APPLIC; Start 01/27/17 at 09:00 Insulin Aspart NOVOLOG *MILD* ALGORI... Q8 SC ; Start 01/27/17 at 22:00 Dextrose/Sodium Chloride (D5-1/2ns) 1,000 ml @ 50 mls/hr Q20H IV Last administered on 01/28/17 17:39; Admin Dose 50 MLS/HR; Start 01/28/17 at 17:00 Assessment/Plan Chief Complaint/Hosp Course 1. shock: cardiogenic and septic combination : BP has improved now and off pressors but on low side. 2. CHF: acute on chronic probably due to systolic and diastolic heart failure: currently stable and appears compensated. 3. acute hypoxemic/ hypercapnic resp failure: s/ p re-intubation now 4. Afib with RVR: HR is under much better control now 5. HX CAD 6/ HX PCI RCA 2009 7. HX HTN: now hypotensive 8. Electrolytes abnormalities. 9. hx CLL 10. ANEMIA 11. Lactic acidosis: resolved now. 12. dyslipidemia 13./ hx DVT ( treated with XARELTO at home). on lovenox here. 14. severe cardiomyopathy now with EF 20% (. EF was 50-55% on 01/01/17 per review of old records) REC: cont ICU care and vent support for now. trach care. will give dig prn. currently HR is under fair control. ECHO shows severe LV dysfunction now. will consider ischemic work up once/ if pt is more stable and extubated. coreg as tolerated. s/p transfusion per hem/onc rec. stool OB is negative so far, resume lovenox once ok with CT surgery. may need to be held again prior to PEG. will change lovenox to eliquis once PEG is in place. will add lisinopril thank you. CHINO MERCEDES MD [facility] Problems: CHINO MERCEDES MD Jan 28, 2017 18:11
[2017-01-29] VITALS (39 sets, daily range): BP systolic 83–140; BP diastolic 47–100; PULSE 78–149; RESP 7–35
[2017-01-29] MEDS: PROPOFOL 100 ML IV SCH (01:30)
[2017-01-29 05:07] LABS: ABNORMAL IP MESSAGE 1; BASOPHILS % 0.3 % (0.0-2.0); EOSINOPHILS % 0.3 % (0.0-7.0); HEMATOCRIT 32.2 % (37.0-47.0); HEMOGLOBIN 9.9 g/dl (12.0-16.0); LYMPHOCYTES # 2.8 10^3/ul (0.8-2.9); MEAN CORPUSCULAR HEMOGLOBIN 28.9 pg (29.0-33.0); MEAN CORPUSCULAR HGB CONC 30.7 g/dl (32.0-37.0); MEAN CORPUSCULAR VOLUME 93.9 fl (82.0-101.0); MEAN PLATELET VOLUME 11.2 fl (7.4-10.4); MONOCYTE # 1.8 10^3/ul (0.3-0.9); MONOCYTES % 23.3 % (0.0-11.0); NEUTROPHIL # 3.1 10^3/ul (1.6-7.5); NEUTROPHILS % 39.2 % (39.0-77.0); PLATELET COUNT 185 10^3/UL (140-415); RED BLOOD COUNT 3.43 10^6/ul (4.20-5.40); RED CELL DISTRIBUTION WIDTH 15.7 % (11.5-14.5); WHITE BLOOD COUNT 7.9 10^3/ul (4.8-10.8)
[2017-01-29 05:13] LABS: POSITIVE DIFF @See below
[2017-01-29 05:44] LABS: ALBUMIN 3.8 g/dl (3.3-4.9); ALBUMIN/GLOBULIN RATIO 1.65; BILIRUBIN,INDIRECT 0.3 mg/dl (0-1.1); BILIRUBIN,TOTAL 0.3 mg/dl (0.2-1.3); CALCIUM 9.2 mg/dl (8.4-10.2); CREATININE 1.12 mg/dl (0.44-1.00); PHOSPHORUS 4.9 mg/dl (2.5-4.9); POTASSIUM 4.2 mmol/L (3.5-5.1); TOTAL PROTEIN 6.1 g/dl (6.1-8.1)
[2017-01-29] MEDS: INSULIN ASPART [NOVOLOG] 3 ML PEN SC SCH ×3 (05:56→22:33)
[2017-01-29] MEDS: COLLAGENASE 30 GM TUBE TOP SCH (08:46)
[2017-01-29] MEDS: LISINOPRIL 5 MG TAB NGT SCH (08:46)
[2017-01-29] MEDS: MUPIROCIN 2% 22 GM OINT TOP SCH ×2 (08:46→20:28)
[2017-01-29] MEDS: NYSTATIN 30 GM POWDER BTL TOP SCH ×2 (08:46→20:28)
[2017-01-29] MEDS: DOCUSATE SODIUM 10 MG/ML (10ML CUP) GTB SCH ×2 (08:50→20:25)
[2017-01-29] MEDS: POTASSIUM CHLORIDE 20 MEQ POWDER FOR ORAL SOLN GTB SCH (08:50)
--- NOTE | 2017-01-29 09:24 | PN ---
Date/Time of Note Date/Time of Note DATE: 01/29/17 TIME: 09:23 Assessment/Plan VTE Prophylaxis VTE Prophylaxis Intervention: other Lines/Catheters IV [facility] Central Line Central line still needed: Yes Urinary Cath still in place: Yes Reason Cath still needed: urinary retention Assessment/Plan Chief Complaint/Hosp Course SUBJECTIVE: all noted. The patient is s/p tracheostomy placement. No other events noted. vent settings were reviewed d/w ICU nurse no nausea, vomiting, rash, hematuria, melena, fever or chills OBJECTIVE: HEENT: Head is normocephalic. NECK: Supple. HEART: Regular rate. LUNGS: Show diminished breath sounds at the base. ABDOMEN: Soft, nontender to palpation without rebound or guarding. EXTREMITIES: Negative for clubbing, cyanosis, no edema. DERMATOLOGIC: No rashes. MUSCULOSKELETAL: No joint effusions. NEUROLOGIC: No change in exam. MEDICATIONS: The patient's medications have been reviewed. ASSESSMENT AND PLAN: 1. Nontender dependent respiratory failure. The patient has failed multiple weaning attempts, s/p trach placement. 2. Sepsis, status post shock. The patient is completing antibiotic course. 3. Decompensated heart failure. The patient appears euvolemic. Will continue to hold diuretic therapy. 4. Nonoliguric acute kidney injury with unknown baseline creatinine. Etiology is secondary to sepsis. Renal function has stabilized. Continue to monitor. 5. Mineral bone disorder. Continue to monitor calcium and phosphorus levels. 6. Dysphagia. The patient is pending PEG tube placement. Will continue maintenance ivf 7. Diabetes, continue Accu-Cheks and sliding scale. 8. Coronary artery disease. Continue medical management. 9. Pulmonary hypertension. Continue current treatment plan. 10. Bilateral pleural effusion. 11. Lower extremity deep venous thrombosis. Continue anticoagulation. 12. Encephalopathy. Etiology is possibly metabolic. Continue to monitor. 13. Gastrointestinal and deep venous thrombosis prophylaxis. DISPOSITION: We will place a Chaudhry evaluation. Problems: Exam/Review of Systems Vital Signs Vitals Vital Signs Date Time Temp Pulse Resp B/P Pulse Ox O2 Delivery O2 Flow Rate FiO2 01/29/17 09:08 30 01/29/17 08:30 108 16 101/62 99 01/29/17 08:00 98.4 Mechanical Ventilator Intake and Output 01/28/17 01/28/17 01/29/17 15:00 23:00 07:00 Intake Total 73.5 ml 362 ml 348 ml Output Total 635 ml 270 ml 160 ml Balance -561.5 ml 92 ml 188 ml Results Result Diagram: 01/29/17 0410 01/29/17409 Results 24 hrs Laboratory Tests Test 01/28/17 13:30 01/28/17 20:23 01/28/17 22:08 01/29/17 04:10 Bedside Glucose 102 110 118 White Blood Count 7.9 Red Blood Count 3.43 L Hemoglobin 9.9 L Hematocrit 32.2 L Mean Corpuscular Volume 93.9 Mean Corpuscular Hemoglobin 28.9 L Mean Corpuscular Hemoglobin Concent 30.7 L Red Cell Distribution Width 15.7 H Platelet Count 185 Mean Platelet Volume 11.2 H Neutrophils % 39.2 Lymphocytes % 35.0 Monocytes % 23.3 H Eosinophils % 0.3 Basophils % 0.3 Nucleated Red Blood Cells % 0.0 Neutrophils # 3.1 Lymphocytes # 2.8 Monocytes # 1.8 H Eosinophils # 0.0 Basophils # 0.0 Nucleated Red Blood Cells # 0.0 Sodium Level 142 Potassium Level 4.2 Chloride Level 104 Carbon Dioxide Level 27 Anion Gap 15 Blood Urea Nitrogen 25 H Creatinine 1.12 H Glucose Level 155 Calcium Level 9.2 Phosphorus Level 4.9 Magnesium Level 2.0 Total Bilirubin 0.3 Direct Bilirubin 0.00 Indirect Bilirubin 0.3 Aspartate Amino Transf (AST/SGOT) 32 Alanine Aminotransferase (ALT/SGPT) 37 Alkaline Phosphatase 56 B-Type Natriuretic Peptide 3290 H Total Protein 6.1 Albumin 3.8 Globulin 2.30 Albumin/Globulin Ratio 1.65 Test 01/29/17 05:49 Bedside Glucose 155 Medications Medications Current Medications Propofol (Diprivan) 100 ml @ 2.045 mls/ hr Q12H IV Last administered on 08:16; Admin Dose 10.227 MLS/HR; Start 01/11/17 at 01:30 Enoxaparin Sodium 70 mg 70 mg Q12 SC Last administered on 01/27/17 21:23; Admin Dose 70 MG; Start 01/11/17 at 12:30 Phenylephrine HCl/ Dextrose (Baudilio-Syneph/D5W) 250 ml @ 10 mls/hr TITRATE IV Last administered on 01/17/17 00:00; Admin Dose 7.5 MLS/HR; Start 01/12/17 at 06:00 Mupirocin (Bactroban) 1 applic BID TOP Last administered on 01/29/17 08:46; Admin Dose 1 APPLIC; Start 01/12/17 at 13:00 Morphine Sulfate (morphine) 1 mg Q4H PRN IV PAIN Last administered on 08:07; Admin Dose 1 MG; Start 01/12/17 at 19:00 Miscellaneous Information 1 ea NOTE XX ; Start 01/13/17 at 07:00 Glucose (Glutose) 15 gm Q15M PRN PO DECREASED GLUCOSE; Start 01/13/17 at 07:00 Glucose (Glutose) 22.5 gm Q15M PRN PO DECREASED GLUCOSE; Start 01/13/17 at 07: 00 Dextrose (D50w Syringe) 25 ml Q15M PRN IV DECREASED GLUCOSE; Start 01/13/17 at 07:00 Dextrose (D50w Syringe) 50 ml Q15M PRN IV DECREASED GLUCOSE; Start 01/13/17 at 07:00 Glucagon (Glucagen) 1 mg Q15M PRN IM DECREASED GLUCOSE; Start 01/13/17 at 07:00 Glucose (Glutose) 15 gm Q15M PRN BUCCAL DECREASED GLUCOSE; Start 01/13/17 at 07 :00 Carvedilol 3.125 mg 3.125 mg BID NGT Last administered on 01/28/17 09:54; Admin Dose 3.125 MG; Start 01/13/17 at 09:00 Midazolam HCl 50 ml @ 1 mls/hr TITRATE IV Last administered on 01/28/17 15:08 ; Admin Dose 2 MLS/HR; Start 01/14/17 at 12:00 Fentanyl (Sublimaze) 100 ml @ 2.5 mls/hr TITRATE IV Last administered on 15:02; Admin Dose 5 MLS/HR; Start 01/14/17 at 13:00 Nystatin (Nystatin Powder) 1 applic BID TOP Last administered on 01/29/17 08: 46; Admin Dose 1 APPLIC; Start 01/14/17 at 15:00 Potassium Chloride (Potassium Chloride Pwd/Soln) 20 meq DAILY GTB Last administered on 01/28/17 08:22; Admin Dose 20 MEQ; Start 01/21/17 at 09:00 Docusate Sodium (Colace Liquid Cup) 100 mg BID GTB Last administered on 08:22; Admin Dose 100 MG; Start 01/23/17 at 10:00 Metoclopramide HCl (Reglan) 5 mg Q6H PRN IV VOMITTING Last administered on 01/24 23:51; Admin Dose 5 MG; Start 01/24/17 at 07:00 Sodium Biphosphate/ Sodium Phosphate (Fleet Enema) 133 ml DAILY PRN ID CONSTIPATION; Start 01/24/17 at 12:30 Collagenase (Santyl) 1 applic DAILY TOP Last administered on 01/29/17 08:46; Admin Dose 1 APPLIC; Start 01/27/17 at 09:00 Insulin Aspart NOVOLOG *MILD* ALGORI... Q8 SC Last administered on 01/29/17 05 :56; Admin Dose 1 UNIT; Start 01/27/17 at 22:00 Dextrose/Sodium Chloride (D5-1/2ns) 1,000 ml @ 50 mls/hr Q20H IV Last administered on 01/28/17 17:39; Admin Dose 50 MLS/HR; Start 01/28/17 at 17:00 Lisinopril (Zestril) 5 mg DAILY NGT ; Start 01/29/17 at 09:00 KENTRELL ORTEGA DO Jan 29, 2017 09:24
[2017-01-29] MEDS: ENOXAPARIN 80 MG/0.8 ML SYG SC SCH ×2 (10:27→20:38)
--- NOTE | 2017-01-29 12:03 | CONS ---
Date/Time of Note Date/Time of Note DATE: 01/29/17 TIME: 12:01 Consult Date/Type/Reason Admit Date/Time Jan 10, 2017 at 23:15 Initial Consult Date 01/10/17 Type of Consultation: CARDIOLOGY Ordering Provider: AUBREE PALMA DO Subjective s/p trach yesterday. No event otherwise. Objective Vital Signs Date Time Temp Pulse Resp B/P Pulse Ox O2 Delivery O2 Flow Rate FiO2 01/29/17 10:00 104 16 105/69 100 Mechanical Ventilator 01/29/17 09:08 30 01/29/17 08:00 98.4 Intake and Output 01/28/17 01/28/17 01/29/17 15:00 23:00 07:00 Intake Total 73.5 ml 362 ml 348 ml Output Total 635 ml 270 ml 160 ml Balance -561.5 ml 92 ml 188 ml Exam HEENT: Neck supple; no JVD; no LAD; + trach in place CVS: Irreg irreg, S1 and S2 CHEST: Decreased BS B/L ABD: Soft, NT, + BS EXT: No c/c; + edema Results/Medications Result Diagram: 01/29/17 0410 01/29/17 0410 Results 24 hrs Laboratory Tests Test 01/28/17 13:30 01/28/17 20:23 01/28/17 22:08 01/29/17 04:10 Bedside Glucose 102 110 118 White Blood Count 7.9 Red Blood Count 3.43 L Hemoglobin 9.9 L Hematocrit 32.2 L Mean Corpuscular Volume 93.9 Mean Corpuscular Hemoglobin 28.9 L Mean Corpuscular Hemoglobin Concent 30.7 L Red Cell Distribution Width 15.7 H Platelet Count 185 Mean Platelet Volume 11.2 H Neutrophils % 39.2 Lymphocytes % 35.0 Monocytes % 23.3 H Eosinophils % 0.3 Basophils % 0.3 Nucleated Red Blood Cells % 0.0 Neutrophils # 3.1 Lymphocytes # 2.8 Monocytes # 1.8 H Eosinophils # 0.0 Basophils # 0.0 Nucleated Red Blood Cells # 0.0 Sodium Level 142 Potassium Level 4.2 Chloride Level 104 Carbon Dioxide Level 27 Anion Gap 15 Blood Urea Nitrogen 25 H Creatinine 1.12 H Glucose Level 155 Calcium Level 9.2 Phosphorus Level 4.9 Magnesium Level 2.0 Total Bilirubin 0.3 Direct Bilirubin 0.00 Indirect Bilirubin 0.3 Aspartate Amino Transf (AST/SGOT) 32 Alanine Aminotransferase (ALT/SGPT) 37 Alkaline Phosphatase 56 B-Type Natriuretic Peptide 3290 H Total Protein 6.1 Albumin 3.8 Globulin 2.30 Albumin/Globulin Ratio 1.65 Test 01/29/17 05:49 Bedside Glucose 155 Medications Current Medications Propofol (Diprivan) 100 ml @ 2.045 mls/ hr Q12H IV Last administered on 08:16; Admin Dose 10.227 MLS/HR; Start 01/11/17 at 01:30 Enoxaparin Sodium 70 mg 70 mg Q12 SC Last administered on 01/29/17 10:27; Admin Dose 70 MG; Start 01/11/17 at 12:30 Phenylephrine HCl/ Dextrose (Baudilio-Syneph/D5W) 250 ml @ 10 mls/hr TITRATE IV Last administered on 01/17/17 00:00; Admin Dose 7.5 MLS/HR; Start 01/12/17 at 06:00 Mupirocin (Bactroban) 1 applic BID TOP Last administered on 01/29/17 08:46; Admin Dose 1 APPLIC; Start 01/12/17 at 13:00 Morphine Sulfate (morphine) 1 mg Q4H PRN IV PAIN Last administered on 08:07; Admin Dose 1 MG; Start 01/12/17 at 19:00 Miscellaneous Information 1 ea NOTE XX ; Start 01/13/17 at 07:00 Glucose (Glutose) 15 gm Q15M PRN PO DECREASED GLUCOSE; Start 01/13/17 at 07:00 Glucose (Glutose) 22.5 gm Q15M PRN PO DECREASED GLUCOSE; Start 01/13/17 at 07: 00 Dextrose (D50w Syringe) 25 ml Q15M PRN IV DECREASED GLUCOSE; Start 01/13/17 at 07:00 Dextrose (D50w Syringe) 50 ml Q15M PRN IV DECREASED GLUCOSE; Start 01/13/17 at 07:00 Glucagon (Glucagen) 1 mg Q15M PRN IM DECREASED GLUCOSE; Start 01/13/17 at 07:00 Glucose (Glutose) 15 gm Q15M PRN BUCCAL DECREASED GLUCOSE; Start 01/13/17 at 07 :00 Carvedilol 3.125 mg 3.125 mg BID NGT Last administered on 01/28/17 09:54; Admin Dose 3.125 MG; Start 01/13/17 at 09:00 Midazolam HCl 50 ml @ 1 mls/hr TITRATE IV Last administered on 01/28/17 15:08 ; Admin Dose 2 MLS/HR; Start 01/14/17 at 12:00 Fentanyl (Sublimaze) 100 ml @ 2.5 mls/hr TITRATE IV Last administered on 15:02; Admin Dose 5 MLS/HR; Start 01/14/17 at 13:00 Nystatin (Nystatin Powder) 1 applic BID TOP Last administered on 01/29/17 08: 46; Admin Dose 1 APPLIC; Start 01/14/17 at 15:00 Potassium Chloride (Potassium Chloride Pwd/Soln) 20 meq DAILY GTB Last administered on 01/28/17 08:22; Admin Dose 20 MEQ; Start 01/21/17 at 09:00 Docusate Sodium (Colace Liquid Cup) 100 mg BID GTB Last administered on 08:22; Admin Dose 100 MG; Start 01/23/17 at 10:00 Metoclopramide HCl (Reglan) 5 mg Q6H PRN IV VOMITTING Last administered on 01/24 23:51; Admin Dose 5 MG; Start 01/24/17 at 07:00 Sodium Biphosphate/ Sodium Phosphate (Fleet Enema) 133 ml DAILY PRN [place] CONSTIPATION; Start 01/24/17 at 12:30 Collagenase (Santyl) 1 applic DAILY TOP Last administered on 01/29/17 08:46; Admin Dose 1 APPLIC; Start 01/27/17 at 09:00 Insulin Aspart NOVOLOG *MILD* ALGORI... Q8 SC Last administered on 01/29/17 05 :56; Admin Dose 1 UNIT; Start 01/27/17 at 22:00 Dextrose/Sodium Chloride (D5-1/2ns) 1,000 ml @ 50 mls/hr Q20H IV Last administered on 01/28/17 17:39; Admin Dose 50 MLS/HR; Start 01/28/17 at 17:00 Lisinopril (Zestril) 5 mg DAILY NGT ; Start 01/29/17 at 09:00 Assessment/Plan Additional Assessment/Plan IMP: 1. Status post septic shock. 2. Acute respiratory failure--s/p trach 3. Pneumonia--resolved 4. Chronic lymphocytic leukemia 5. Recurrent pleural effusions, history of right PleurX catheter placement 6. Atrial fibrillation RECS: 1. Vent support 2. Hopefully soon to Chaudhry 3. TF/Free H20 MELISSA MARK MD Jan 29, 2017 12:03
--- NOTE | 2017-01-29 12:22 | RADRPT ---
PROCEDURE: XR Chest. CLINICAL INDICATION: Shortness of breath. TECHNIQUE: Single frontal view. COMPARISON: 01/26/2017. FINDINGS: The tracheostomy tube has been inserted in satisfactory position. The right chest tube, and left int ernal jugular vein catheter remain in satisfactory position. The nasogastric tube has been removed. Atelectasis at the lung bases is unchanged. There is a small right pleural effusion. There is no lef t pleural effusion. The heart is enlarged. There is calcification in the aorta consistent with atherosclerosis. There is no pneumothorax. IMPRESSION: 1. The tracheostomy tube in satisfactory position. 2. Nasogastric tube removed. 3. No other new abnormality. RPTAT: QQ .Noe Aragon MD, MD Date Time Electronically viewed and signed by .Noe Aragon MD, on 01/29/2017 12:22 .R/
--- NOTE | 2017-01-29 12:54 | PN ---
Date/Time of Note Date/Time of Note DATE: 01/29/17 TIME: 12:52 Assessment/Plan VTE Prophylaxis VTE Prophylaxis Intervention: other Lines/Catheters IV Catheter Type (from Nrs): Central line still needed: No Urinary Cath still in place: No Assessment/Plan Chief Complaint/Hosp Course IMPRESSION: Respiratory failure. SP Tracheostomy will continue wound care vent support Problems: Subjective 24 Hr Interval Summary Gastrointestinal: no complaints Genitourinary: no complaints Musculoskeletal: no complaints Skin: no complaints Exam/Review of Systems Vital Signs Vitals Vital Signs Date Time Temp Pulse Resp B/P Pulse Ox O2 Delivery O2 Flow Rate FiO2 01/29/17 11:10 104 16 100 30 01/29/17 10:00 105/69 Mechanical Ventilator 01/29/17 08:00 98.4 Intake and Output 01/28/17 01/28/17 01/29/17 15:00 23:00 07:00 Intake Total 73.5 ml 362 ml 348 ml Output Total 635 ml 270 ml 160 ml Balance -561.5 ml 92 ml 188 ml Exam ENMT: nl external ears & nose, nl lips & teeth, nl nasal mucosa & septum Neck: non-tender, supple Respiratory: clear to auscultation, normal air movement Results Result Diagram: 01/29/17 0410 01/29/17 0410 Results 24 hrs Laboratory Tests Test 01/28/17 13:30 01/28/17 20:23 01/28/17 22:08 01/29/17 04:10 Bedside Glucose 102 110 118 White Blood Count 7.9 Red Blood Count 3.43 L Hemoglobin 9.9 L Hematocrit 32.2 L Mean Corpuscular Volume 93.9 Mean Corpuscular Hemoglobin 28.9 L Mean Corpuscular Hemoglobin Concent 30.7 L Red Cell Distribution Width 15.7 H Platelet Count 185 Mean Platelet Volume 11.2 H Neutrophils % 39.2 Lymphocytes % 35.0 Monocytes % 23.3 H Eosinophils % 0.3 Basophils % 0.3 Nucleated Red Blood Cells % 0.0 Neutrophils # 3.1 Lymphocytes # 2.8 Monocytes # 1.8 H Eosinophils # 0.0 Basophils # 0.0 Nucleated Red Blood Cells # 0.0 Sodium Level 142 Potassium Level 4.2 Chloride Level 104 Carbon Dioxide Level 27 Anion Gap 15 Blood Urea Nitrogen 25 H Creatinine 1.12 H Glucose Level 155 Calcium Level 9.2 Phosphorus Level 4.9 Magnesium Level 2.0 Total Bilirubin 0.3 Direct Bilirubin 0.00 Indirect Bilirubin 0.3 Aspartate Amino Transf (AST/SGOT) 32 Alanine Aminotransferase (ALT/SGPT) 37 Alkaline Phosphatase 56 B-Type Natriuretic Peptide 3290 H Total Protein 6.1 Albumin 3.8 Globulin 2.30 Albumin/Globulin Ratio 1.65 Test 01/29/17 05:49 Bedside Glucose 155 Medications Medications Current Medications Enoxaparin Sodium (Lovenox) 70 mg Q12 SC Last administered on 01/29/17 10:27; Admin Dose 70 MG; Start 01/11/17 at 12:30 Mupirocin (Bactroban) 1 applic BID TOP Last administered on 01/29/17 08:46; Admin Dose 1 APPLIC; Start 01/12/17 at 13:00 Morphine Sulfate (morphine) 1 mg Q4H PRN IV PAIN Last administered on 08:07; Admin Dose 1 MG; Start 01/12/17 at 19:00 Miscellaneous Information 1 ea NOTE XX ; Start 01/13/17 at 07:00 Glucose (Glutose) 15 gm Q15M PRN PO DECREASED GLUCOSE; Start 01/13/17 at 07:00 Glucose (Glutose) 22.5 gm Q15M PRN PO DECREASED GLUCOSE; Start 01/13/17 at 07: 00 Dextrose (D50w Syringe) 25 ml Q15M PRN IV DECREASED GLUCOSE; Start 01/13/17 at 07:00 Dextrose (D50w Syringe) 50 ml Q15M PRN IV DECREASED GLUCOSE; Start 01/13/17 at 07:00 Glucagon (Glucagen) 1 mg Q15M PRN IM DECREASED GLUCOSE; Start 01/13/17 at 07:00 Glucose (Glutose) 15 gm Q15M PRN BUCCAL DECREASED GLUCOSE; Start 01/13/17 at 07 :00 Carvedilol (Coreg) 3.125 mg BID NGT Last administered on 01/28/17 09:54; Admin Dose 3.125 MG; Start 01/13/17 at 09:00 Nystatin (Nystatin Powder) 1 applic BID TOP Last administered on 01/29/17 08: 46; Admin Dose 1 APPLIC; Start 01/14/17 at 15:00 Potassium Chloride (Potassium Chloride Pwd/Soln) 20 meq DAILY GTB Last administered on 01/28/17 08:22; Admin Dose 20 MEQ; Start 01/21/17 at 09:00 Docusate Sodium (Colace Liquid Cup) 100 mg BID GTB Last administered on 08:22; Admin Dose 100 MG; Start 01/23/17 at 10:00 Metoclopramide HCl (Reglan) 5 mg Q6H PRN IV VOMITTING Last administered on 01/24 23:51; Admin Dose 5 MG; Start 01/24/17 at 07:00 Sodium Biphosphate/ Sodium Phosphate (Fleet Enema) 133 ml DAILY PRN [place] CONSTIPATION; Start 01/24/17 at 12:30 Collagenase (Santyl) 1 applic DAILY TOP Last administered on 01/29/17 08:46; Admin Dose 1 APPLIC; Start 01/27/17 at 09:00 Insulin Aspart NOVOLOG *MILD* ALGORI... Q8 SC Last administered on 01/29/17 05 :56; Admin Dose 1 UNIT; Start 01/27/17 at 22:00 Dextrose/Sodium Chloride (D5-1/2ns) 1,000 ml @ 50 mls/hr Q20H IV Last administered on 01/28/17 17:39; Admin Dose 50 MLS/HR; Start 01/28/17 at 17:00 Lisinopril (Zestril) 5 mg DAILY NGT ; Start 01/29/17 at 09:00 DAVID KELLER MD Jan 29, 2017 12:54
[2017-01-29] MEDS: DEXTROSE 5%-0.45% NACL 1,000 ML IV SCH (13:59)
[2017-01-29] MEDS: morphine 2 MG INJ IV PRN ×2 (16:45→20:40)
--- NOTE | 2017-01-29 16:59 | CONS ---
Date/Time of Note Date/Time of Note DATE: 01/29/17 TIME: 16:56 Consult Date/Type/Reason Admit Date/Time Jan 10, 2017 at 23:15 Initial Consult Date 01/11/17 Type of Consultation: CARDIOLOGY Ordering Provider: AUBREE PALMA DO Subjective CARDIOLOGY follow up note S: D/W staff and rhythm was reviewed. pt remains in afib. HR has been under good control for the most part. d/w son and daughter in law she is still on vent in ICU. pt is nonverbal. S/P Trach 01/28/17. she c/o throat discomfort at site of trach. her old records were extensively reviewed pt's EF was normal at 50-55% on 01/01/17 O: gen: s/p trach on vent HEENT: Pupils are equal NECK: no stridor. s/p trach CV: irregularly irregular. systolic murmur pulm: + mild rhonchi. diffuse. Chest: s/p plurodex right side GI: soft NT ND. no rebound. no guarding ext: + trace LE edema neuro: awake and follows commands. Derm: multiple echymosis psych; anxious ECG reviewed: afib RVR. ant infarct. ECHO 01/11/17reviewed personally: 1. Normal left ventricular cavity size. Normal left ventricular wall thickness. Severe left ventricular systolic dysfunction. Ejection fraction is visually estimated at 25 %. Multiple segmental wall motion abnormalities. 2. There is mild enlargement of left atrium. 3. Mild mitral leaflet calcification. Mild mitral annular calcification. Mild mitral valve regurgitation. 4. Aortic sclerosis without stenosis. Trace aortic valve regurgitation. 5. Normal appearance of the tricuspid valve. Estimated peak PA systolic pressure 53 mmHg. There is mild tricuspid regurgitation. 6. Inferior vena cava without respiratory collapse, however, patient on ventilator. ECHO 01/01/17: per review of old charts. EF 50-55%. LAE. MOD/ SEVERE MR. Objective Vital Signs Date Time Temp Pulse Resp B/P Pulse Ox O2 Delivery O2 Flow Rate FiO2 01/29/17 16:00 97.9 95 17 128/70 100 Mechanical Ventilator 01/29/17 15:10 30 Intake and Output 01/28/17 01/28/17 01/29/17 15:00 23:00 07:00 Intake Total 73.5 ml 362 ml 348 ml Output Total 635 ml 270 ml 160 ml Balance -561.5 ml 92 ml 188 ml Results/Medications Result Diagram: 01/29/1740901/29/17 0410 Results 24 hrs Laboratory Tests Test 01/28/17 20:23 01/28/17 22:08 01/29/17 04:10 01/29/17 05:49 Bedside Glucose 110 118 155 White Blood Count 7.9 Red Blood Count 3.43 L Hemoglobin 9.9 L Hematocrit 32.2 L Mean Corpuscular Volume 93.9 Mean Corpuscular Hemoglobin 28.9 L Mean Corpuscular Hemoglobin Concent 30.7 L Red Cell Distribution Width 15.7 H Platelet Count 185 Mean Platelet Volume 11.2 H Neutrophils % 39.2 Lymphocytes % 35.0 Monocytes % 23.3 H Eosinophils % 0.3 Basophils % 0.3 Nucleated Red Blood Cells % 0.0 Neutrophils # 3.1 Lymphocytes # 2.8 Monocytes # 1.8 H Eosinophils # 0.0 Basophils # 0.0 Nucleated Red Blood Cells # 0.0 Sodium Level 142 Potassium Level 4.2 Chloride Level 104 Carbon Dioxide Level 27 Anion Gap 15 Blood Urea Nitrogen 25 H Creatinine 1.12 H Glucose Level 155 Calcium Level 9.2 Phosphorus Level 4.9 Magnesium Level 2.0 Total Bilirubin 0.3 Direct Bilirubin 0.00 Indirect Bilirubin 0.3 Aspartate Amino Transf (AST/SGOT) 32 Alanine Aminotransferase (ALT/SGPT) 37 Alkaline Phosphatase 56 B-Type Natriuretic Peptide 3290 H Total Protein 6.1 Albumin 3.8 Globulin 2.30 Albumin/Globulin Ratio 1.65 Test 01/29/17 14:04 Bedside Glucose 145 Medications Current Medications Enoxaparin Sodium (Lovenox) 70 mg Q12 SC Last administered on 01/29/17 10:27; Admin Dose 70 MG; Start 01/11/17 at 12:30 Mupirocin (Bactroban) 1 applic BID TOP Last administered on 01/29/17 08:46; Admin Dose 1 APPLIC; Start 01/12/17 at 13:00 Morphine Sulfate (morphine) 1 mg Q4H PRN IV PAIN Last administered on 16:45; Admin Dose 1 MG; Start 01/12/17 at 19:00 Miscellaneous Information 1 ea NOTE XX ; Start 01/13/17 at 07:00 Glucose (Glutose) 15 gm Q15M PRN PO DECREASED GLUCOSE; Start 01/13/17 at 07:00 Glucose (Glutose) 22.5 gm Q15M PRN PO DECREASED GLUCOSE; Start 01/13/17 at 07: 00 Dextrose (D50w Syringe) 25 ml Q15M PRN IV DECREASED GLUCOSE; Start 01/13/17 at 07:00 Dextrose (D50w Syringe) 50 ml Q15M PRN IV DECREASED GLUCOSE; Start 01/13/17 at 07:00 Glucagon (Glucagen) 1 mg Q15M PRN IM DECREASED GLUCOSE; Start 01/13/17 at 07:00 Glucose (Glutose) 15 gm Q15M PRN BUCCAL DECREASED GLUCOSE; Start 01/13/17 at 07 :00 Carvedilol (Coreg) 3.125 mg BID NGT Last administered on 01/28/17 09:54; Admin Dose 3.125 MG; Start 01/13/17 at 09:00 Nystatin (Nystatin Powder) 1 applic BID TOP Last administered on 01/29/17 08: 46; Admin Dose 1 APPLIC; Start 01/14/17 at 15:00 Potassium Chloride (Potassium Chloride Pwd/Soln) 20 meq DAILY GTB Last administered on 01/28/17 08:22; Admin Dose 20 MEQ; Start 01/21/17 at 09:00 Docusate Sodium (Colace Liquid Cup) 100 mg BID GTB Last administered on 08:22; Admin Dose 100 MG; Start 01/23/17 at 10:00 Metoclopramide HCl (Reglan) 5 mg Q6H PRN IV VOMITTING Last administered on 01/24 23:51; Admin Dose 5 MG; Start 01/24/17 at 07:00 Sodium Biphosphate/ Sodium Phosphate (Fleet Enema) 133 ml DAILY PRN [place] CONSTIPATION; Start 01/24/17 at 12:30 Collagenase (Santyl) 1 applic DAILY TOP Last administered on 01/29/17 08:46; Admin Dose 1 APPLIC; Start 01/27/17 at 09:00 Insulin Aspart NOVOLOG *MILD* ALGORI... Q8 SC Last administered on 01/29/17 14 :06; Admin Dose 1 UNIT; Start 01/27/17 at 22:00 Dextrose/Sodium Chloride (D5-1/2ns) 1,000 ml @ 50 mls/hr Q20H IV Last administered on 01/29/17t 13:59; Admin Dose 50 MLS/HR; Start 01/28/17 at 17:00 Lisinopril (Zestril) 5 mg DAILY NGT ; Start 01/29/17 at 09:00 Assessment/Plan Chief Complaint/Hosp Course 1. shock: cardiogenic and septic combination : BP has improved now and off pressors but on low side. 2. CHF: acute on chronic probably due to systolic and diastolic heart failure: currently stable and appears compensated. 3. acute hypoxemic/ hypercapnic resp failure: s/ p trach now 4. Afib with RVR: HR is under much better control now 5. HX CAD 6/ HX PCI RCA 2009 7. HX HTN: now hypotensive 8. Electrolytes abnormalities. 9. hx CLL 10. ANEMIA 11. Lactic acidosis: resolved now. 12. dyslipidemia 13./ hx DVT ( treated with XARELTO at home). on lovenox here. 14. severe cardiomyopathy now with EF 20% (. EF was 50-55% on 01/01/17 per review of old records) REC: cont vent support for now. trach care. will give dig prn. currently HR is under fair control. ECHO shows severe LV dysfunction now. ischemic work up including noni angio d/ w pt 's son and daughter in law. they want medical therapy only at this time coreg as tolerated. s/p transfusion per hem/onc rec. stool OB is negative so far, pt is back on lovenox, may need to be held again prior to PEG. will change lovenox to eliquis once PEG is in place. will cont lisinopril as tolerated. thank you. CHINO MERCEDES MD LOCATED WITHIN [facility] Problems: CHINO MERCEDES MD Jan 29, 2017 16:59
[2017-01-29] MEDS ORDERED: morphine 2 MG INJ IV PRN (21:30)
[2017-01-29] MEDS: LORAZEPAM 2 MG INJ IV PRN (21:31)
[2017-01-29] MEDS ORDERED: FENTAnyl (DRIP) 1000 mcg/100mL 100 ML IV SCH (23:00)
[2017-01-29] MEDS ORDERED: MIDAZOLAM (DRIP) 50 mg/50 mL 50 ML IV SCH (23:00)
[2017-01-30] VITALS (35 sets, daily range): BP systolic 80–135; BP diastolic 46–83; PULSE 71–104; RESP 13–30
[2017-01-30 05:04] LABS: ALBUMIN 3.5 g/dl (3.3-4.9); ALBUMIN/GLOBULIN RATIO 1.45; BILIRUBIN,INDIRECT 0.4 mg/dl (0-1.1); BILIRUBIN,TOTAL 0.4 mg/dl (0.2-1.3); CALCIUM 8.8 mg/dl (8.4-10.2); CREATININE 1.09 mg/dl (0.44-1.00); MAGNESIUM 1.9 mg/dl (1.7-2.5); POTASSIUM 3.2 mmol/L (3.5-5.1); TOTAL PROTEIN 5.9 g/dl (6.1-8.1)
[2017-01-30 05:09] LABS: CK-MB 0.25 ng/ml (0.0-2.4); TROPONIN-I 0.041 ng/ml (0.00-0.12)
[2017-01-30] MEDS: INSULIN ASPART [NOVOLOG] 3 ML PEN SC SCH ×3 (06:02→21:45)
[2017-01-30 07:22] LABS: ABNORMAL IP MESSAGE 1; HEMATOCRIT 28.6 % (37.0-47.0); HEMOGLOBIN 8.9 g/dl (12.0-16.0); MEAN CORPUSCULAR HEMOGLOBIN 29.4 pg (29.0-33.0); MEAN CORPUSCULAR HGB CONC 31.1 g/dl (32.0-37.0); MEAN CORPUSCULAR VOLUME 94.4 fl (82.0-101.0); MEAN PLATELET VOLUME 11.1 fl (7.4-10.4); PLATELET COUNT 160 10^3/UL (140-415); RED BLOOD COUNT 3.03 10^6/ul (4.20-5.40); RED CELL DISTRIBUTION WIDTH 15.5 % (11.5-14.5); WHITE BLOOD COUNT 7.8 10^3/ul (4.8-10.8)
[2017-01-30 07:48] LABS: POSITIVE DIFF @See below
[2017-01-30] MEDS: LISINOPRIL 5 MG TAB NGT SCH (09:00)
[2017-01-30] MEDS: POTASSIUM CHLORIDE 20 MEQ POWDER FOR ORAL SOLN GTB SCH (09:00)
[2017-01-30] MEDS: DOCUSATE SODIUM 10 MG/ML (10ML CUP) GTB SCH ×2 (09:00→21:00)
[2017-01-30] MEDS: DEXTROSE 5%-0.45% NACL 1,000 ML IV SCH (09:34)
[2017-01-30] MEDS: COLLAGENASE 30 GM TUBE TOP SCH (09:40)
[2017-01-30] MEDS: NYSTATIN 30 GM POWDER BTL TOP SCH ×2 (09:40→21:00)
[2017-01-30] MEDS: MUPIROCIN 2% 22 GM OINT TOP SCH ×2 (09:40→21:00)
[2017-01-30] MEDS: ENOXAPARIN 80 MG/0.8 ML SYG SC SCH ×2 (09:47→21:33)
--- NOTE | 2017-01-30 09:59 | PN ---
Date/Time of Note Date/Time of Note DATE: 01/30/17 TIME: 09:58 Assessment/Plan VTE Prophylaxis VTE Prophylaxis Intervention: other Lines/Catheters IV C[facility]ter Type (from [facility] Central Line Central line still needed: Yes Urinary Cath still in place: Yes Reason Cath still needed: urinary retention Assessment/Plan Chief Complaint/Hosp Course SUBJECTIVE: all noted. The patient is s/p tracheostomy placement. No other events noted. vent settings were reviewed d/w ICU nurse no nausea, vomiting, rash, hematuria, melena, fever or chills OBJECTIVE: HEENT: Head is normocephalic. NECK: Supple. HEART: Regular rate. LUNGS: Show diminished breath sounds at the base. ABDOMEN: Soft, nontender to palpation without rebound or guarding. EXTREMITIES: Negative for clubbing, cyanosis, no edema. DERMATOLOGIC: No rashes. MUSCULOSKELETAL: No joint effusions. NEUROLOGIC: No change in exam. MEDICATIONS: The patient's medications have been reviewed. ASSESSMENT AND PLAN: 1. Nontender dependent respiratory failure. The patient has failed multiple weaning attempts, s/p trach placement. 2. Sepsis, status post shock. The patient is completing antibiotic course. 3. Decompensated heart failure. The patient appears euvolemic. Will continue to hold diuretic therapy. 4. Nonoliguric acute kidney injury with unknown baseline creatinine. Etiology is secondary to sepsis. Renal function has stabilized. Continue to monitor. 5. Mineral bone disorder. Continue to monitor calcium and phosphorus levels. 6. Dysphagia. The patient is pending PEG tube placement. Will replete K 7. Diabetes, continue Accu-Cheks and sliding scale. 8. Coronary artery disease. Continue medical management. 9. Pulmonary hypertension. Continue current treatment plan. 10. Bilateral pleural effusion. 11. Lower extremity deep venous thrombosis. Continue anticoagulation. 12. Encephalopathy. Etiology is possibly metabolic. Continue to monitor. 13. Gastrointestinal and deep venous thrombosis prophylaxis. DISPOSITION: We will place a Chaudhry evaluation. Problems: Exam/Review of Systems Vital Signs Vitals Vital Signs Date Time Temp Pulse Resp B/P Pulse Ox O2 Delivery O2 Flow Rate FiO2 01/30/17 08:30 83 17 104/60 100 Mechanical Ventilator 01/30/17 07:30 97.4 01/30/17 05:05 30 Intake and Output 01/29/17 01/29/17 01/30/17 15:00 23:00 07:00 Intake Total 358 ml 250 ml 457 ml Output Total 228 ml 402 ml 250 ml Balance 130 ml -152 ml 207 ml Results Result Diagram: 01/30/17 0430 01/30/17 0430 Results 24 hrs Laboratory Tests Test 01/29/17 14:04 01/29/17 22:30 01/30/17 04:00 01/30/17 04:30 Bedside Glucose 145 168 Digoxin Level 0.6 L White Blood Count 7.8 Red Blood Count 3.03 L Hemoglobin 8.9 L Hematocrit 28.6 L Mean Corpuscular Volume 94.4 Mean Corpuscular Hemoglobin 29.4 Mean Corpuscular Hemoglobin Concent 31.1 L Red Cell Distribution Width 15.5 H Platelet Count 160 Mean Platelet Volume 11.1 H Neutrophils % Lymphocytes % Monocytes % Eosinophils % Basophils % Nucleated Red Blood Cells % 0.0 Neutrophils # Lymphocytes # Monocytes # Eosinophils # Basophils # Nucleated Red Blood Cells # Sodium Level 140 Potassium Level 3.2 L Chloride Level 106 Carbon Dioxide Level 28 Anion Gap 9 # Blood Urea Nitrogen 21 H Creatinine 1.09 H Glucose Level 152 Calcium Level 8.8 Magnesium Level 1.9 Total Bilirubin 0.4 Direct Bilirubin 0.00 Indirect Bilirubin 0.4 Aspartate Amino Transf (AST/SGOT) 27 Alanine Aminotransferase (ALT/SGPT) 33 Alkaline Phosphatase 54 Creatine Kinase 35 Creatine Kinase Index 0.7 Creatinine Kinase MB (Mass) 0.25 Troponin I 0.041 Total Protein 5.9 L Albumin 3.5 Globulin 2.40 Albumin/Globulin Ratio 1.45 Test 01/30/17 05:59 Bedside Glucose 157 Medications Medications Current Medications Enoxaparin Sodium (Lovenox) 70 mg Q12 SC Last administered on 01/30/17 09:47; Admin Dose 70 MG; Start 01/11/17 at 12:30 Mupirocin (Bactroban) 1 applic BID TOP Last administered on 01/30/17 09:40; Admin Dose 1 APPLIC; Start 01/12/17 at 13:00 Miscellaneous Information 1 ea NOTE XX ; Start 01/13/17 at 07:00 Glucose (Glutose) 15 gm Q15M PRN PO DECREASED GLUCOSE; Start 01/13/17 at 07:00 Glucose (Glutose) 22.5 gm Q15M PRN PO DECREASED GLUCOSE; Start 01/13/17 at 07: 00 Dextrose (D50w Syringe) 25 ml Q15M PRN IV DECREASED GLUCOSE; Start 01/13/17 at 07:00 Dextrose (D50w Syringe) 50 ml Q15M PRN IV DECREASED GLUCOSE; Start 01/13/17 at 07:00 Glucagon (Glucagen) 1 mg Q15M PRN IM DECREASED GLUCOSE; Start 01/13/17 at 07:00 Glucose (Glutose) 15 gm Q15M PRN BUCCAL DECREASED GLUCOSE; Start 01/13/17 at 07 :00 Carvedilol (Coreg) 3.125 mg BID NGT Last administered on 01/28/17 09:54; Admin Dose 3.125 MG; Start 01/13/17 at 09:00 Nystatin (Nystatin Powder) 1 applic BID TOP Last administered on 01/30/17 09: 40; Admin Dose 1 APPLIC; Start 01/14/17 at 15:00 Potassium Chloride (Potassium Chloride Pwd/Soln) 20 meq DAILY GTB Last administered on 01/28/17 08:22; Admin Dose 20 MEQ; Start 01/21/17 at 09:00 Docusate Sodium (Colace Liquid Cup) 100 mg BID GTB Last administered on 08:22; Admin Dose 100 MG; Start 01/23/17 at 10:00 Metoclopramide HCl (Reglan) 5 mg Q6H PRN IV VOMITTING Last administered on 01/24 23:51; Admin Dose 5 MG; Start 01/24/17 at 07:00 Sodium Biphosphate/ Sodium Phosphate (Fleet Enema) 133 ml DAILY PRN [place] CONSTIPATION; Start 01/24/17 at 12:30 Collagenase (Santyl) 1 applic DAILY TOP Last administered on 01/30/17 09:40; Admin Dose 1 APPLIC; Start 01/27/17 at 09:00 Insulin Aspart NOVOLOG *MILD* ALGORI... Q8 SC Last administered on 01/30/17 06 :02; Admin Dose 1 UNIT; Start 01/27/17 at 22:00 Dextrose/Sodium Chloride (D5-1/2ns) 1,000 ml @ 50 mls/hr Q20H IV Last administered on 01/30/17 09:34; Admin Dose 50 MLS/HR; Start 01/28/17 at 17:00 Lisinopril (Zestril) 5 mg DAILY NGT ; Start 01/29/17 at 09:00 Morphine Sulfate (morphine) 2 mg Q2H PRN IV pain; Start 01/29/17 at 21:30 Lorazepam 0.5 mg 0.5 mg Q6H PRN IV anxiety Last administered on 01/29/17 21:31 ; Admin Dose 0.5 MG; Start 01/29/17 at 21:30 Fentanyl 100 ml @ 2.5 mls/hr TITRATE IV Last administered on 01/29/17 23:22; Admin Dose 2.5 MLS/HR; Start 01/29/17 at 23:00 Midazolam HCl (Versed) 50 ml @ 1 mls/hr TITRATE IV Last administered on 23:23; Admin Dose 1 MLS/HR; Start 01/29/17 at 23:00 KENTRELL ORTEGA DO Jan 30, 2017 09:59
[2017-01-30] MEDS ORDERED: POTASSIUM CHLORIDE 50 ML IVPB SCH (10:00)
[2017-01-30 10:02] LABS: ANISOCYTOSIS 1+ (0-0); BURR CELLS 1+ (0-0); EOSINOPHILS % (M) 4 % (0-7); HYPOCHROMASIA 1+ (0-0); MONOCYTES % (M) 18 % (0-11); PLATELET ESTIMATE NORMAL; POIKILOCYTOSIS 1+ (0-0)
[2017-01-30] MEDS ORDERED: POTASSIUM CHLORIDE 50 ML IVPB ONE (11:00)
--- NOTE | 2017-01-30 12:08 | CONS ---
Date/Time of Note Date/Time of Note DATE: 01/30/17 TIME: 12:07 Consult Date/Type/Reason Admit Date/Time Jan 10, 2017 at 23:15 Initial Consult Date 01/10/17 Type of Consultation: Pulm/CCM Ordering Provider: AUBREE PALMA DO Subjective No events. Objective Vital Signs Date Time Temp Pulse Resp B/P Pulse Ox O2 Delivery O2 Flow Rate FiO2 01/30/17 10:00 83 20 91/53 100 Mechanical Ventilator 01/30/17 07:30 97.4 01/30/17 05:05 30 Intake and Output 01/29/17 01/29/17 01/30/17 15:00 23:00 07:00 Intake Total 358 ml 250 ml 457 ml Output Total 228 ml 402 ml 270 ml Balance 130 ml -152 ml 187 ml Exam HEENT: Neck supple; no JVD; no LAD; + trach in place CVS: Irreg irreg, S1 and S2 CHEST: Decreased BS B/L ABD: Soft, NT, + BS EXT: No c/c; + edema Results/Medications Result Diagram: 01/30/17 0430 01/30/17 0430 Results 24 hrs Laboratory Tests Test 01/29/17 14:04 01/29/17 22:30 01/30/17 04:00 01/30/17 04:30 Bedside Glucose 145 168 Digoxin Level 0.6 L White Blood Count 7.8 Red Blood Count 3.03 L Hemoglobin 8.9 L Hematocrit 28.6 L Mean Corpuscular Volume 94.4 Mean Corpuscular Hemoglobin 29.4 Mean Corpuscular Hemoglobin Concent 31.1 L Red Cell Distribution Width 15.5 H Platelet Count 160 Mean Platelet Volume 11.1 H Neutrophils % Segmented Neutrophils % (Manual) 31 L Band Neutrophils % (Manual) 7 H Lymphocytes % Lymphocytes % (Manual) 40 Monocytes % Monocytes % (Manual) 18 H Eosinophils % Eosinophils % (Manual) 4 Basophils % Nucleated Red Blood Cells % 0.0 Neutrophils # Neutrophils # (Manual) 2.5 Band Neutrophils # 0.5 Absolute Lymphocytes (Manual) 3.1 H Lymphocytes # Monocytes # Absolute Monocytes (Manual) 1.4 H Eosinophils # Basophils # Nucleated Red Blood Cells # Platelet Estimate NORMAL Dimorphic Red Blood Cells 1+ Hypochromasia 1+ Poikilocytosis 1+ Anisocytosis 1+ Macrocytosis 1+ Sodium Level 140 Potassium Level 3.2 L Chloride Level 106 Carbon Dioxide Level 28 Anion Gap 9 # Blood Urea Nitrogen 21 H Creatinine 1.09 H Glucose Level 152 Calcium Level 8.8 Magnesium Level 1.9 Total Bilirubin 0.4 Direct Bilirubin 0.00 Indirect Bilirubin 0.4 Aspartate Amino Transf (AST/SGOT) 27 Alanine Aminotransferase (ALT/SGPT) 33 Alkaline Phosphatase 54 Creatine Kinase 35 Creatine Kinase Index 0.7 Creatinine Kinase MB (Mass) 0.25 Troponin I 0.041 Total Protein 5.9 L Albumin 3.5 Globulin 2.40 Albumin/Globulin Ratio 1.45 Test 01/30/17 05:59 Bedside Glucose 157 Medications Current Medications Enoxaparin Sodium (Lovenox) 70 mg Q12 SC Last administered on 01/30/17 09:47; Admin Dose 70 MG; Start 01/11/17 at 12:30 Mupirocin (Bactroban) 1 applic BID TOP Last administered on 01/30/17 09:40; Admin Dose 1 APPLIC; Start 01/12/17 at 13:00 Miscellaneous Information 1 ea NOTE XX ; Start 01/13/17 at 07:00 Glucose (Glutose) 15 gm Q15M PRN PO DECREASED GLUCOSE; Start 01/13/17 at 07:00 Glucose (Glutose) 22.5 gm Q15M PRN PO DECREASED GLUCOSE; Start 01/13/17 at 07: 00 Dextrose (D50w Syringe) 25 ml Q15M PRN IV DECREASED GLUCOSE; Start 01/13/17 at 07:00 Dextrose (D50w Syringe) 50 ml Q15M PRN IV DECREASED GLUCOSE; Start 01/13/17 at 07:00 Glucagon (Glucagen) 1 mg Q15M PRN IM DECREASED GLUCOSE; Start 01/13/17 at 07:00 Glucose (Glutose) 15 gm Q15M PRN BUCCAL DECREASED GLUCOSE; Start 01/13/17 at 07 :00 Carvedilol (Coreg) 3.125 mg BID NGT Last administered on 01/28/17 09:54; Admin Dose 3.125 MG; Start 01/13/17 at 09:00 Nystatin (Nystatin Powder) 1 applic BID TOP Last administered on 01/30/17 09: 40; Admin Dose 1 APPLIC; Start 01/14/17 at 15:00 Potassium Chloride (Potassium Chloride Pwd/Soln) 20 meq DAILY GTB Last administered on 01/28/17 08:22; Admin Dose 20 MEQ; Start 01/21/17 at 09:00 Docusate Sodium (Colace Liquid Cup) 100 mg BID GTB Last administered on 08:22; Admin Dose 100 MG; Start 01/23/17 at 10:00 Metoclopramide HCl (Reglan) 5 mg Q6H PRN IV VOMITTING Last administered on 01/24 23:51; Admin Dose 5 MG; Start 01/24/17 at 07:00 Sodium Biphosphate/ Sodium Phosphate (Fleet Enema) 133 ml DAILY PRN [place] CONSTIPATION; Start 01/24/17 at 12:30 Collagenase (Santyl) 1 applic DAILY TOP Last administered on 01/30/17 09:40; Admin Dose 1 APPLIC; Start 01/27/17 at 09:00 Insulin Aspart NOVOLOG *MILD* ALGORI... Q8 SC Last administered on 01/30/17 06 :02; Admin Dose 1 UNIT; Start 01/27/17 at 22:00 Dextrose/Sodium Chloride (D5-1/2ns) 1,000 ml @ 50 mls/hr Q20H IV Last administered on 01/30/17 09:34; Admin Dose 50 MLS/HR; Start 01/28/17 at 17:00 Lisinopril (Zestril) 5 mg DAILY NGT ; Start 01/29/17 at 09:00 Morphine Sulfate (morphine) 2 mg Q2H PRN IV pain; Start 01/29/17 at 21:30 Lorazepam 0.5 mg 0.5 mg Q6H PRN IV anxiety Last administered on 01/29/17 21:31 ; Admin Dose 0.5 MG; Start 01/29/17 at 21:30 Fentanyl 100 ml @ 2.5 mls/hr TITRATE IV Last administered on 01/29/17 23:22; Admin Dose 2.5 MLS/HR; Start 01/29/17 at 23:00 Midazolam HCl 50 ml @ 1 mls/hr TITRATE IV Last administered on 01/29/17 23:23 ; Admin Dose 1 MLS/HR; Start 01/29/17 at 23:00 Potassium Chloride (KCl 20 MEQ/50 ML SW) 50 ml @ 25 mls/hr ONCE ONCE IVPB Last administered on 10/8/17at 11:09; Admin Dose 25 MLS/HR; Start 01/30/17 at 11 :00; Stop 01/30/17 at 12:59 Assessment/Plan Additional Assessment/Plan IMP: 1. Status post septic shock. 2. Acute respiratory failure--s/p trach 3. Pneumonia--resolved 4. Chronic lymphocytic leukemia 5. Recurrent pleural effusions, history of right PleurX catheter placement 6. Atrial fibrillation RECS: 1. Vent support 2. Hopefully soon to Chaudhry 3. TF/Free H20 4. DVT/GI prophylaxis MELISSA MARK MD Jan 30, 2017 12:08
--- NOTE | 2017-01-30 13:19 | CONS ---
Date/Time of Note Date/Time of Note DATE: 01/30/17 TIME: 13:18 Consult Date/Type/Reason Admit Date/Time Jan 10, 2017 at 23:15 Initial Consult Date 01/10/17 Type of Consultation: ID Ordering Provider: AUBREE PALMA DO Objective Vital Signs Date Time Temp Pulse Resp B/P Pulse Ox O2 Delivery O2 Flow Rate FiO2 01/30/17 12:00 80 17 91/54 100 Mechanical Ventilator 01/30/17 11:10 30 01/30/17 11:00 97.8 Intake and Output 01/29/17 01/29/17 01/30/17 15:00 23:00 07:00 Intake Total 358 ml 250 ml 457 ml Output Total 228 ml 402 ml 270 ml Balance 130 ml -152 ml 187 ml Results/Medications Result Diagram: 01/30/17 0430 01/30/17 0430 Results 24 hrs Laboratory Tests Test 01/29/17 14:04 01/29/17 22:30 01/30/17 04:00 01/30/17 04:30 Bedside Glucose 145 168 Digoxin Level 0.6 L White Blood Count 7.8 Red Blood Count 3.03 L Hemoglobin 8.9 L Hematocrit 28.6 L Mean Corpuscular Volume 94.4 Mean Corpuscular Hemoglobin 29.4 Mean Corpuscular Hemoglobin Concent 31.1 L Red Cell Distribution Width 15.5 H Platelet Count 160 Mean Platelet Volume 11.1 H Neutrophils % Segmented Neutrophils % (Manual) 31 L Band Neutrophils % (Manual) 7 H Lymphocytes % Lymphocytes % (Manual) 40 Monocytes % Monocytes % (Manual) 18 H Eosinophils % Eosinophils % (Manual) 4 Basophils % Nucleated Red Blood Cells % 0.0 Neutrophils # Neutrophils # (Manual) 2.5 Band Neutrophils # 0.5 Absolute Lymphocytes (Manual) 3.1 H Lymphocytes # Monocytes # Absolute Monocytes (Manual) 1.4 H Eosinophils # Basophils # Nucleated Red Blood Cells # Platelet Estimate NORMAL Dimorphic Red Blood Cells 1+ Hypochromasia 1+ Poikilocytosis 1+ Anisocytosis 1+ Macrocytosis 1+ Sodium Level 140 Potassium Level 3.2 L Chloride Level 106 Carbon Dioxide Level 28 Anion Gap 9 # Blood Urea Nitrogen 21 H Creatinine 1.09 H Glucose Level 152 Calcium Level 8.8 Magnesium Level 1.9 Total Bilirubin 0.4 Direct Bilirubin 0.00 Indirect Bilirubin 0.4 Aspartate Amino Transf (AST/SGOT) 27 Alanine Aminotransferase (ALT/SGPT) 33 Alkaline Phosphatase 54 Creatine Kinase 35 Creatine Kinase Index 0.7 Creatinine Kinase MB (Mass) 0.25 Troponin I 0.041 Total Protein 5.9 L Albumin 3.5 Globulin 2.40 Albumin/Globulin Ratio 1.45 Test 01/30/17 05:59 Bedside Glucose 157 Medications Current Medications Enoxaparin Sodium (Lovenox) 70 mg Q12 SC Last administered on 01/30/17 09:47; Admin Dose 70 MG; Start 01/11/17 at 12:30 Mupirocin (Bactroban) 1 applic BID TOP Last administered on 01/30/17 09:40; Admin Dose 1 APPLIC; Start 01/12/17 at 13:00 Miscellaneous Information 1 ea NOTE XX ; Start 01/13/17 at 07:00 Glucose (Glutose) 15 gm Q15M PRN PO DECREASED GLUCOSE; Start 01/13/17 at 07:00 Glucose (Glutose) 22.5 gm Q15M PRN PO DECREASED GLUCOSE; Start 01/13/17 at 07: 00 Dextrose (D50w Syringe) 25 ml Q15M PRN IV DECREASED GLUCOSE; Start 01/13/17 at 07:00 Dextrose (D50w Syringe) 50 ml Q15M PRN IV DECREASED GLUCOSE; Start 01/13/17 at 07:00 Glucagon (Glucagen) 1 mg Q15M PRN IM DECREASED GLUCOSE; Start 01/13/17 at 07:00 Glucose (Glutose) 15 gm Q15M PRN BUCCAL DECREASED GLUCOSE; Start 01/13/17 at 07 :00 Carvedilol (Coreg) 3.125 mg BID NGT Last administered on 01/28/17 09:54; Admin Dose 3.125 MG; Start 01/13/17 at 09:00 Nystatin (Nystatin Powder) 1 applic BID TOP Last administered on 01/30/17 09: 40; Admin Dose 1 APPLIC; Start 01/14/17 at 15:00 Potassium Chloride (Potassium Chloride Pwd/Soln) 20 meq DAILY GTB Last administered on 01/28/17 08:22; Admin Dose 20 MEQ; Start 01/21/17 at 09:00 Docusate Sodium (Colace Liquid Cup) 100 mg BID GTB Last administered on 08:22; Admin Dose 100 MG; Start 01/23/17 at 10:00 Metoclopramide HCl (Reglan) 5 mg Q6H PRN IV VOMITTING Last administered on 01/24 23:51; Admin Dose 5 MG; Start 01/24/17 at 07:00 Sodium Biphosphate/ Sodium Phosphate (Fleet Enema) 133 ml DAILY PRN [place] CONSTIPATION; Start 01/24/17 at 12:30 Collagenase (Santyl) 1 applic DAILY TOP Last administered on 01/30/17 09:40; Admin Dose 1 APPLIC; Start 01/27/17 at 09:00 Insulin Aspart NOVOLOG *MILD* ALGORI... Q8 SC Last administered on 01/30/17 06 :02; Admin Dose 1 UNIT; Start 01/27/17 at 22:00 Dextrose/Sodium Chloride (D5-1/2ns) 1,000 ml @ 50 mls/hr Q20H IV Last administered on 01/30/17 09:34; Admin Dose 50 MLS/HR; Start 01/28/17 at 17:00 Lisinopril (Zestril) 5 mg DAILY NGT ; Start 01/29/17 at 09:00 Morphine Sulfate (morphine) 2 mg Q2H PRN IV pain; Start 01/29/17 at 21:30 Lorazepam 0.5 mg 0.5 mg Q6H PRN IV anxiety Last administered on 01/29/17 21:31 ; Admin Dose 0.5 MG; Start 01/29/17 at 21:30 Fentanyl 100 ml @ 2.5 mls/hr TITRATE IV Last administered on 01/29/17 23:22; Admin Dose 2.5 MLS/HR; Start 01/29/17 at 23:00 Midazolam HCl (Versed) 50 ml @ 1 mls/hr TITRATE IV Last administered on 23:23; Admin Dose 1 MLS/HR; Start 01/29/17 at 23:00 Assessment/Plan Chief Complaint/Hosp Course SUBJECTIVE DATA: No acute changes. Looks comfortable. INDWELLINGS: Trach, NG-tube, left IJ triple lumen catheter. Right-sided PleurX catheter, Sifuentes catheter. PHYSICAL EXAMINATION: GENERAL: This is a well-developed, well-nourished, and elderly woman who is intubated, sedated and in no distress. HEENT: Head atraumatic, normocephalic. Sclerae anicteric. Buccal mucosa dry. NECK: Supple. CHEST: Rise symmetrical. Breath sounds diminished at the bases. HEART: S1, S2. ABDOMEN: Soft, bowel sounds present. EXTREMITIES: Without cyanosis. ASSESSMENT: 1. Status post septic shock 2. Status post-congestive heart failure exacerbation. 3. Acute respiratory failure, failed weaning trials. 4. Status post-pneumonia. 5. Chronic lymphocytic leukemia. 5. History of right PleurX catheter placement secondary to recurrent pleural effusions. 6. Diabetes. 7. Methicillin-resistant Staphylococcus aureus nares colonization. 8. History of deep vein thrombosis. PLAN: The patient remains stable. Off antibiotics. Pending PEG. Continue present care. Repeat cultures as needed Problems: MARIAM LINTON NP Jan 30, 2017 13:19
--- NOTE | 2017-01-30 15:46 | PN ---
Date/Time of Note Date/Time of Note DATE: 01/30/17 TIME: 15:45 Assessment/Plan Lines/Catheters IV Catheter Type (from Nrsg): Central Line Sifuentes in Place (from Nrsg): Yes Assessment/Plan Chief Complaint/Hosp Course IMPRESSION: Respiratory failure. SP Tracheostomy will continue wound care vent support Problems: Subjective 24 Hr Interval Summary Constitutional: improved Pain Control: mild Exam/Review of Systems Vital Signs Vitals Vital Signs Date Time Temp Pulse Resp B/P Pulse Ox O2 Delivery O2 Flow Rate FiO2 01/30/17 14:00 73 16 91/47 100 Mechanical Ventilator 01/30/17 11:10 30 01/30/17 11:00 97.8 Intake and Output 01/29/17 01/29/17 01/30/17 15:00 23:00 07:00 Intake Total 358 ml 250 ml 457 ml Output Total 228 ml 402 ml 270 ml Balance 130 ml -152 ml 187 ml Exam ENMT: mucosa pink and moist, nl external ears & nose, nl lips & teeth, nl nasal mucosa & septum Neck: non-tender, supple Respiratory: clear to auscultation, normal air movement Cardiovascular: nl pulses, regular rate and rhythm Gastrointestinal: nl liver, spleen, non-tender, soft Results Result Diagram: 01/30/170 01/30/17 0430 DAVID KELLER MD Jan 30, 2017 15:46
--- NOTE | 2017-01-30 17:47 | CONS ---
Date/Time of Note Date/Time of Note DATE: 01/30/17 TIME: 17:47 Assessment/Plan Assessment/Plan Additional Assessment/Plan IMPRESSION: 1. Dysphagia. 2. Cardiomyopathy with ejection fraction of 20%. 3. Pulmonary hypertension. 4. Diabetes mellitus. 5. Obesity. 6. Leukemia, chronic lymphocytic. 7. Bilateral pleural effusion. 8. Deep venous thrombosis. 9. Encephalopathy. 10. Anemia. 11. Nonoliguric kidney failure. 12. Sepsis. The patient has completed the course of antibiotics. 13. Status post tracheostomy PLAN: Continue present care. We will discuss with the family. If they are in agreement, then we will proceed with the PEG. Discussed with the [id number] and has agreed for the PEG. Patient is scheduled for G-tube on Tuesday Discussed with the son who was by the side of the patient regarding G-tube and has agreed for the procedure Consultation Date/Type/Reason Admit Date/Time Jan 10, 2017 at 23:15 Initial Consult Date 01/10/17 Type of Consultation: ID Referring Provider: AUBREE PALMA DO 24 HR Interval Summary Subjective hx not possible: pt non-verbal, pt critical Constitutional: no complaints Exam/Review of Systems Vital Signs Vitals Vital Signs Date Time Temp Pulse Resp B/P Pulse Ox O2 Delivery O2 Flow Rate FiO2 01/30/17 17:00 71 16 100 30 01/30/17 14:00 91/47 Mechanical Ventilator 01/30/17 11:00 97.8 Intake and Output 01/29/17 01/29/17 01/30/17 15:00 23:00 07:00 Intake Total 358 ml 250 ml 457 ml Output Total 228 ml 402 ml 270 ml Balance 130 ml -152 ml 187 ml Exam Constitutional: alert, oriented, well developed Psych: nl mood/affect, no complaints Head: atraumatic, normocephalic Eyes: EOMI, PERRL, nl conjunctiva, nl lids, nl sclera ENMT: nl external ears & nose, nl lips & teeth, nl nasal mucosa & septum Neck: non-tender, supple Respiratory: clear to auscultation, normal air movement Cardiovascular: nl pulses, regular rate and rhythm Gastrointestinal: nl liver, spleen, non-tender, soft Musculoskeletal: nl extremities to inspection, nl gait and stance Extremities: normal pulses Neurological: GARAGE HAND II-XII intact, nl mental status, nl speech, nl strength Skin: nl turgor, No rash or lesions Lymph: nl lymph nodes Results Result Diagram: 01/30/17 0430 01/30/17 0430 Results 24 hrs Laboratory Tests Test 01/29/17 22:30 01/30/17 04:00 01/30/17 04:30 01/30/17 05:59 Bedside Glucose 168 157 Digoxin Level 0.6 L White Blood Count 7.8 Red Blood Count 3.03 L Hemoglobin 8.9 L Hematocrit 28.6 L Mean Corpuscular Volume 94.4 Mean Corpuscular Hemoglobin 29.4 Mean Corpuscular Hemoglobin Concent 31.1 L Red Cell Distribution Width 15.5 H Platelet Count 160 Mean Platelet Volume 11.1 H Neutrophils % Segmented Neutrophils % (Manual) 31 L Band Neutrophils % (Manual) 7 H Lymphocytes % Lymphocytes % (Manual) 40 Monocytes % Monocytes % (Manual) 18 H Eosinophils % Eosinophils % (Manual) 4 Basophils % Nucleated Red Blood Cells % 0.0 Neutrophils # Neutrophils # (Manual) 2.5 Band Neutrophils # 0.5 Absolute Lymphocytes (Manual) 3.1 H Lymphocytes # Monocytes # Absolute Monocytes (Manual) 1.4 H Eosinophils # Basophils # Nucleated Red Blood Cells # Platelet Estimate NORMAL Dimorphic Red Blood Cells 1+ Hypochromasia 1+ Poikilocytosis 1+ Anisocytosis 1+ Macrocytosis 1+ Sodium Level 140 Potassium Level 3.2 L Chloride Level 106 Carbon Dioxide Level 28 Anion Gap 9 # Blood Urea Nitrogen 21 H Creatinine 1.09 H Glucose Level 152 Calcium Level 8.8 Magnesium Level 1.9 Total Bilirubin 0.4 Direct Bilirubin 0.00 Indirect Bilirubin 0.4 Aspartate Amino Transf (AST/SGOT) 27 Alanine Aminotransferase (ALT/SGPT) 33 Alkaline Phosphatase 54 Creatine Kinase 35 Creatine Kinase Index 0.7 Creatinine Kinase MB (Mass) 0.25 Troponin I 0.041 Total Protein 5.9 L Albumin 3.5 Globulin 2.40 Albumin/Globulin Ratio 1.45 Test 01/30/17 14:55 Bedside Glucose 139 Medications Medications Current Medications Enoxaparin Sodium (Lovenox) 70 mg Q12 SC Last administered on 01/30/17 09:47; Admin Dose 70 MG; Start 01/11/17 at 12:30; Status Future hold Mupirocin (Bactroban) 1 applic BID TOP Last administered on 01/30/17 09:40; Admin Dose 1 APPLIC; Start 01/12/17 at 13:00 Miscellaneous Information 1 ea NOTE XX ; Start 01/13/17 at 07:00 Glucose (Glutose) 15 gm Q15M PRN PO DECREASED GLUCOSE; Start 01/13/17 at 07:00 Glucose (Glutose) 22.5 gm Q15M PRN PO DECREASED GLUCOSE; Start 01/13/17 at 07: 00 Dextrose (D50w Syringe) 25 ml Q15M PRN IV DECREASED GLUCOSE; Start 01/13/17 at 07:00 Dextrose (D50w Syringe) 50 ml Q15M PRN IV DECREASED GLUCOSE; Start 01/13/17 at 07:00 Glucagon (Glucagen) 1 mg Q15M PRN IM DECREASED GLUCOSE; Start 01/13/17 at 07:00 Glucose (Glutose) 15 gm Q15M PRN BUCCAL DECREASED GLUCOSE; Start 01/13/17 at 07 :00 Carvedilol (Coreg) 3.125 mg BID NGT Last administered on 01/28/17 09:54; Admin Dose 3.125 MG; Start 01/13/17 at 09:00 Nystatin (Nystatin Powder) 1 applic BID TOP Last administered on 01/30/17 09: 40; Admin Dose 1 APPLIC; Start 01/14/17 at 15:00 Potassium Chloride (Potassium Chloride Pwd/Soln) 20 meq DAILY GTB Last administered on 01/28/17 08:22; Admin Dose 20 MEQ; Start 01/21/17 at 09:00 Docusate Sodium (Colace Liquid Cup) 100 mg BID GTB Last administered on 08:22; Admin Dose 100 MG; Start 01/23/17 at 10:00 Metoclopramide HCl (Reglan) 5 mg Q6H PRN IV VOMITTING Last administered on 01/24 23:51; Admin Dose 5 MG; Start 01/24/17 at 07:00 Sodium Biphosphate/ Sodium Phosphate (Fleet Enema) 133 ml DAILY PRN [place] CONSTIPATION; Start 01/24/17 at 12:30 Collagenase (Santyl) 1 applic DAILY TOP Last administered on 01/30/17 09:40; Admin Dose 1 APPLIC; Start 01/27/17 at 09:00 Insulin Aspart NOVOLOG *MILD* ALGORI... Q8 SC Last administered on 01/30/17 06 :02; Admin Dose 1 UNIT; Start 01/27/17 at 22:00 Dextrose/Sodium Chloride (D5-1/2ns) 1,000 ml @ 50 mls/hr Q20H IV Last administered on 01/30/17 09:34; Admin Dose 50 MLS/HR; Start 01/28/17 at 17:00 Lisinopril (Zestril) 5 mg DAILY NGT ; Start 01/29/17 at 09:00 Morphine Sulfate (morphine) 2 mg Q2H PRN IV pain; Start 01/29/17 at 21:30 Lorazepam 0.5 mg 0.5 mg Q6H PRN IV anxiety Last administered on 01/29/17 21:31 ; Admin Dose 0.5 MG; Start 01/29/17 at 21:30 Fentanyl 100 ml @ 2.5 mls/hr TITRATE IV Last administered on 01/29/17 23:22; Admin Dose 2.5 MLS/HR; Start 01/29/17 at 23:00 Midazolam HCl (Versed) 50 ml @ 1 mls/hr TITRATE IV Last administered on 23:23; Admin Dose 1 MLS/HR; Start 01/29/17 at 23:00 GAVIOTA ALLEN MD Jan 30, 2017 17:47
--- NOTE | 2017-01-30 17:49 | CONS ---
Date/Time of Note Date/Time of Note DATE: 01/30/17 TIME: 17:48 Consult Date/Type/Reason Admit Date/Time Jan 10, 2017 at 23:15 Initial Consult Date 01/11/17 Type of Consultation: CARD Ordering Provider: AUBREE PALMA DO Subjective CARDIOLOGY follow up note S: D/W staff and rhythm was reviewed. pt remains in afib. HR has been under good control for the most part. she is still on vent in ICU. pt is nonverbal. S/P Trach 01/28/17. she c/o throat discomfort at site of trach. her old records were extensively reviewed pt's EF was normal at 50-55% on 01/01/17 O: gen: s/p trach on vent HEENT: Pupils are equal NECK: no stridor. s/p trach CV: irregularly irregular. systolic murmur pulm: + mild rhonchi. diffuse. Chest: s/p plurodex right side GI: soft NT ND. no rebound. no guarding ext: + trace LE edema neuro: awake and follows commands. Derm: multiple echymosis psych; anxious ECG reviewed: afib RVR. ant infarct. ECHO 01/11/17reviewed personally: 1. Normal left ventricular cavity size. Normal left ventricular wall thickness. Severe left ventricular systolic dysfunction. Ejection fraction is visually estimated at 25 %. Multiple segmental wall motion abnormalities. 2. There is mild enlargement of left atrium. 3. Mild mitral leaflet calcification. Mild mitral annular calcification. Mild mitral valve regurgitation. 4. Aortic sclerosis without stenosis. Trace aortic valve regurgitation. 5. Normal appearance of the tricuspid valve. Estimated peak PA systolic pressure 53 mmHg. There is mild tricuspid regurgitation. 6. Inferior vena cava without respiratory collapse, however, patient on ventilator. ECHO 01/01/17: per review of old charts. EF 50-55%. LAE. MOD/ SEVERE MR. Objective Vital Signs Date Time Temp Pulse Resp B/P Pulse Ox O2 Delivery O2 Flow Rate FiO2 01/30/17 17:00 71 16 100 30 01/30/17 14:00 91/47 Mechanical Ventilator 01/30/17 11:00 97.8 Intake and Output 01/29/17 01/29/17 01/30/17 15:00 23:00 07:00 Intake Total 358 ml 250 ml 457 ml Output Total 228 ml 402 ml 270 ml Balance 130 ml -152 ml 187 ml Results/Medications Result Diagram: 01/30/17 0430 01/30/17 0430 Results 24 hrs Laboratory Tests Test 01/29/17 22:30 01/30/17 04:00 01/30/17 04:30 01/30/17 05:59 Bedside Glucose 168 157 Digoxin Level 0.6 L White Blood Count 7.8 Red Blood Count 3.03 L Hemoglobin 8.9 L Hematocrit 28.6 L Mean Corpuscular Volume 94.4 Mean Corpuscular Hemoglobin 29.4 Mean Corpuscular Hemoglobin Concent 31.1 L Red Cell Distribution Width 15.5 H Platelet Count 160 Mean Platelet Volume 11.1 H Neutrophils % Segmented Neutrophils % (Manual) 31 L Band Neutrophils % (Manual) 7 H Lymphocytes % Lymphocytes % (Manual) 40 Monocytes % Monocytes % (Manual) 18 H Eosinophils % Eosinophils % (Manual) 4 Basophils % Nucleated Red Blood Cells % 0.0 Neutrophils # Neutrophils # (Manual) 2.5 Band Neutrophils # 0.5 Absolute Lymphocytes (Manual) 3.1 H Lymphocytes # Monocytes # Absolute Monocytes (Manual) 1.4 H Eosinophils # Basophils # Nucleated Red Blood Cells # Platelet Estimate NORMAL Dimorphic Red Blood Cells 1+ Hypochromasia 1+ Poikilocytosis 1+ Anisocytosis 1+ Macrocytosis 1+ Sodium Level 140 Potassium Level 3.2 L Chloride Level 106 Carbon Dioxide Level 28 Anion Gap 9 # Blood Urea Nitrogen 21 H Creatinine 1.09 H Glucose Level 152 Calcium Level 8.8 Magnesium Level 1.9 Total Bilirubin 0.4 Direct Bilirubin 0.00 Indirect Bilirubin 0.4 Aspartate Amino Transf (AST/SGOT) 27 Alanine Aminotransferase (ALT/SGPT) 33 Alkaline Phosphatase 54 Creatine Kinase 35 Creatine Kinase Index 0.7 Creatinine Kinase MB (Mass) 0.25 Troponin I 0.041 Total Protein 5.9 L Albumin 3.5 Globulin 2.40 Albumin/Globulin Ratio 1.45 Test 01/30/17 14:55 Bedside Glucose 139 Medications Current Medications Enoxaparin Sodium (Lovenox) 70 mg Q12 SC Last administered on 01/30/17 09:47; Admin Dose 70 MG; Start 01/11/17 at 12:30; Status Future hold Mupirocin (Bactroban) 1 applic BID TOP Last administered on 01/30/17 09:40; Admin Dose 1 APPLIC; Start 01/12/17 at 13:00 Miscellaneous Information 1 ea NOTE XX ; Start 01/13/17 at 07:00 Glucose (Glutose) 15 gm Q15M PRN PO DECREASED GLUCOSE; Start 01/13/17 at 07:00 Glucose (Glutose) 22.5 gm Q15M PRN PO DECREASED GLUCOSE; Start 01/13/17 at 07: 00 Dextrose (D50w Syringe) 25 ml Q15M PRN IV DECREASED GLUCOSE; Start 01/13/17 at 07:00 Dextrose (D50w Syringe) 50 ml Q15M PRN IV DECREASED GLUCOSE; Start 01/13/17 at 07:00 Glucagon (Glucagen) 1 mg Q15M PRN IM DECREASED GLUCOSE; Start 01/13/17 at 07:00 Glucose (Glutose) 15 gm Q15M PRN BUCCAL DECREASED GLUCOSE; Start 01/13/17 at 07 :00 Carvedilol (Coreg) 3.125 mg BID NGT Last administered on 01/28/17 09:54; Admin Dose 3.125 MG; Start 01/13/17 at 09:00 Nystatin (Nystatin Powder) 1 applic BID TOP Last administered on 01/30/17 09: 40; Admin Dose 1 APPLIC; Start 01/14/17 at 15:00 Potassium Chloride (Potassium Chloride Pwd/Soln) 20 meq DAILY GTB Last administered on 01/28/17 08:22; Admin Dose 20 MEQ; Start 01/21/17 at 09:00 Docusate Sodium (Colace Liquid Cup) 100 mg BID GTB Last administered on 08:22; Admin Dose 100 MG; Start 01/23/17 at 10:00 Metoclopramide HCl (Reglan) 5 mg Q6H PRN IV VOMITTING Last administered on 01/24 23:51; Admin Dose 5 MG; Start 01/24/17 at 07:00 Sodium Biphosphate/ Sodium Phosphate (Fleet Enema) 133 ml DAILY PRN [place] CONSTIPATION; Start 01/24/17 at 12:30 Collagenase (Santyl) 1 applic DAILY TOP Last administered on 01/30/17 09:40; Admin Dose 1 APPLIC; Start 01/27/17 at 09:00 Insulin Aspart NOVOLOG *MILD* ALGORI... Q8 SC Last administered on 01/30/17 06 :02; Admin Dose 1 UNIT; Start 01/27/17 at 22:00 Dextrose/Sodium Chloride (D5-1/2ns) 1,000 ml @ 50 mls/hr Q20H IV Last administered on 01/30/17 09:34; Admin Dose 50 MLS/HR; Start 01/28/17 at 17:00 Lisinopril (Zestril) 5 mg DAILY NGT ; Start 01/29/17 at 09:00 Morphine Sulfate (morphine) 2 mg Q2H PRN IV pain; Start 01/29/17 at 21:30 Lorazepam 0.5 mg 0.5 mg Q6H PRN IV anxiety Last administered on 01/29/17 21:31 ; Admin Dose 0.5 MG; Start 01/29/17 at 21:30 Fentanyl 100 ml @ 2.5 mls/hr TITRATE IV Last administered on 01/29/17 23:22; Admin Dose 2.5 MLS/HR; Start 01/29/17 at 23:00 Midazolam HCl (Versed) 50 ml @ 1 mls/hr TITRATE IV Last administered on 23:23; Admin Dose 1 MLS/HR; Start 01/29/17 at 23:00 Assessment/Plan Chief Complaint/Hosp Course 1. shock: cardiogenic and septic combination : BP has improved now and off pressors but on low side. 2. CHF: acute on chronic probably due to systolic and diastolic heart failure: currently stable and appears compensated. 3. acute hypoxemic/ hypercapnic resp failure: s/ p trach now 4. Afib with RVR: HR is under much better control now 5. HX CAD 6/ HX PCI RCA 2009 7. HX HTN: now hypotensive 8. Electrolytes abnormalities. 9. hx CLL 10. ANEMIA 11. Lactic acidosis: resolved now. 12. dyslipidemia 13./ hx DVT ( treated with XARELTO at home). on lovenox here. 14. severe cardiomyopathy now with EF 20% (. EF was 50-55% on 01/01/17 per review of old records) REC: cont vent support for now. trach care. will give dig prn. currently HR is under fair control. ECHO shows severe LV dysfunction now. ischemic work up including noni angio d/ w pt 's son and daughter in law previously. they want medical therapy only at this time coreg as tolerated. s/p transfusion per hem/onc rec. stool OB is negative so far, pt is back on lovenox, may need to be held again prior to PEG. will change lovenox to eliquis once PEG is in place. will cont lisinopril as tolerated. replace lylisa allen thank you. CHINO MERCEDES MD [facility] Problems: CHINO MERCEDES MD Jan 30, 2017 17:49
[2017-01-31] VITALS (36 sets, daily range): BP systolic 67–148; BP diastolic 47–119; PULSE 75–118; RESP 16–44
--- NOTE | 2017-01-31 03:34 | PN ---
DATE: 01/29/2017 INFECTIOUS DISEASE PROGRESS NOTE SUBJECTIVE: No events overnight. The patient is status post tracheostomy. She is lying comfortabl y in bed, afebrile. Temperature 98.4, pulse 110, respirations 17, blood pressure 98/74, saturation 100 on vent. WBC 7.9, H and H 9.9 and 32.2, platelets 185. BUN 25, creatinine 1.12. DIAGNOSTICS: Chest x-ray this morning revealed tracheostomy tube in satisfactory position, no other abnormality. PHYSICAL EXAMINATION: GENERAL: Well-developed, fragile, elderly woman in no distress. HEENT: Head atraumatic, normocephalic. Sclerae anicteric. Buccal mucosa dry. NECK: Supple. Tracheostomy present. CHEST: Rise symmetrical. Breath sounds diminished to bases. HEART: S1, S2. ABDOMEN: Soft. Bowel tones present. EXTREMITIES: Without cyanosis. ASSESSMENT: 1. Status post septic shock, urinary tract infection and pneumonia. 2. Respiratory failure, status post tracheostomy. 3. Dysphagia. 4. Chronic lymphocytic leukemia. 5. [id number] kidney disease. 6. History of DVT. 7. History of pleural effusion, patient has right-sided pleurX catheter. PLAN: Patient remains stable. Continue present care. Observe off antibiotics pending PEG. Dictated By: MARIAM LINTON LARRY OPERATOR for [facility] Conf#: [id number] DID#: [id number]
[2017-01-31] MEDS: DEXTROSE 5%-0.45% NACL 1,000 ML IV SCH (03:53)
[2017-01-31] MEDS: INSULIN ASPART [NOVOLOG] 3 ML PEN SC SCH ×3 (05:13→17:00)
[2017-01-31] MEDS: LORAZEPAM 2 MG INJ IV PRN ×4 (07:33→17:54)
[2017-01-31 08:40] LABS: BASOPHILS % 0.3 % (0.0-2.0); EOSINOPHILS # 0.1 10^3/ul (0.0-0.5); EOSINOPHILS % 0.6 % (0.0-7.0); HEMATOCRIT 30.6 % (37.0-47.0); HEMOGLOBIN 9.7 g/dl (12.0-16.0); LYMPHOCYTES # 4.2 10^3/ul (0.8-2.9); LYMPHOCYTES % 52.6 % (15.0-51.0); MEAN CORPUSCULAR HEMOGLOBIN 28.6 pg (29.0-33.0); MEAN CORPUSCULAR HGB CONC 31.7 g/dl (32.0-37.0); MEAN CORPUSCULAR VOLUME 90.3 fl (82.0-101.0); MEAN PLATELET VOLUME 11.2 fl (7.4-10.4); MONOCYTE # 1.2 10^3/ul (0.3-0.9); NEUTROPHIL # 2.3 10^3/ul (1.6-7.5); NEUTROPHILS % 29.5 % (39.0-77.0); PLATELET COUNT 178 10^3/UL (140-415); RED BLOOD COUNT 3.39 10^6/ul (4.20-5.40); RED CELL DISTRIBUTION WIDTH 15.7 % (11.5-14.5); WHITE BLOOD COUNT 7.9 10^3/ul (4.8-10.8)
[2017-01-31] MEDS: DOCUSATE SODIUM 10 MG/ML (10ML CUP) GTB SCH (08:41)
[2017-01-31] MEDS: POTASSIUM CHLORIDE 20 MEQ POWDER FOR ORAL SOLN GTB SCH (08:41)
[2017-01-31] MEDS: LISINOPRIL 5 MG TAB NGT SCH (08:42)
[2017-01-31] MEDS: NYSTATIN 30 GM POWDER BTL TOP SCH (08:42)
[2017-01-31] MEDS: MUPIROCIN 2% 22 GM OINT TOP SCH (08:42)
[2017-01-31] MEDS: COLLAGENASE 30 GM TUBE TOP SCH (08:43)
[2017-01-31 09:01] LABS: ALBUMIN 3.7 g/dl (3.3-4.9); ALBUMIN/GLOBULIN RATIO 1.42; BILIRUBIN,INDIRECT 0.6 mg/dl (0-1.1); BILIRUBIN,TOTAL 0.6 mg/dl (0.2-1.3); CALCIUM 8.9 mg/dl (8.4-10.2); CREATININE 0.95 mg/dl (0.44-1.00); POTASSIUM 3.5 mmol/L (3.5-5.1); TOTAL PROTEIN 6.3 g/dl (6.1-8.1)
[2017-01-31 09:18] LABS: INR 1.15; PROTIME 14.7 Sec (12.2-14.2); PT RATIO 1.1
[2017-01-31] MEDS ORDERED: POTASSIUM CHLORIDE 50 ML IVPB ONE (10:00)
[2017-01-31] MEDS ORDERED: MAGNESIUM SULFATE 2 GM/50 ML 50 ML IVPB ONE (10:00)
--- NOTE | 2017-01-31 11:20 | CONS ---
Date/Time of Note Date/Time of Note DATE: 01/31/17 TIME: 11:17 Assessment/Plan Assessment/Plan Chief Complaint/Hosp Course Consult dictated #[id number] Problems: Additional Assessment/Plan Ventilator setting; AC of 16, tidal volume 400, PEEP of 5, 30% FiO2. Assessment and recommendations; 1. Patient admitted with sepsis and pneumonia with marked overall clinical improvement. 2. History of recurrent pleural effusions with complete radiological resolution as well. Patient with a history of right Pleurx catheter placement in the past. 3. History of chronic lymphocytic leukemia. 4. Mild anemia and thrombocytopenia. 5. Generalized deconditioning precluding weaning from mechanical ventilation. 6. Anxiety. Continue current treatment. Patient scheduled for PEG tube placement today. Transfer to telemetry unit. Subsequent transfer to rehab center. Consultation Date/Type/Reason Admit Date/Time Jan 10, 2017 at 23:15 Initial Consult Date 01/11/17 Type of Consultation: Pulmonary/critical care Referring Provider: AUBREE PALMA DO 24 HR Interval Summary Free Text/Dictation Patient's condition remains critical but stable. Remains completely awake and alert. Patient however has been unable to be weaned off from invasive mechanical ventilation numerous times subsequently requiring tracheostomy. General exam; elderly woman, on ventilator via tracheostomy, awake and alert. Currently in no distress. Exam/Review of Systems Vital Signs Vitals Vital Signs Date Time Temp Pulse Resp B/P Pulse Ox O2 Delivery O2 Flow Rate FiO2 01/31/17 08:00 100 34 126/71 100 Mechanical Ventilator 01/31/17 08:00 30 01/31/17 07:30 97.9 Intake and Output 01/30/17 01/30/17 01/31/17 15:00 23:00 07:00 Intake Total 457.5 ml 400 ml 400 ml Output Total 169 ml 214 ml 390 ml Balance 288.5 ml 186 ml 10 ml Exam HEENT exam; supple neck, no JVD. No lymphadenopathy. Midline trachea. No thyromegaly. Tracheostomy in place. There is mild crusting of blood around the insertion site. Patient is edentulous. Pupils are equal and reactive to light bilaterally. Chest exam; diminished but clear breath sounds. S1-S2 audible, no murmurs. Irregular rhythm. There is a Pleurx catheter in the right lower lateral chest wall. Abdomen exam; soft, no organomegaly. Bowel sounds audible. Nontender. Extremity exam; no peripheral edema. DRYING EQUIPMENT OPERATOR exam; patient awake and follows simple commands. Results Result Diagram: 01/31/17 0752 01/31/17 0752 Results 24 hrs Laboratory Tests Test 01/30/17 14:55 01/30/17 21:31 01/31/17 05:13 01/31/17 07:52 Bedside Glucose 139 123 131 White Blood Count 7.9 Red Blood Count 3.39 L Hemoglobin 9.7 L Hematocrit 30.6 L Mean Corpuscular Volume 90.3 Mean Corpuscular Hemoglobin 28.6 L Mean Corpuscular Hemoglobin Concent 31.7 L Red Cell Distribution Width 15.7 H Platelet Count 178 Mean Platelet Volume 11.2 H Neutrophils % 29.5 L Lymphocytes % 52.6 H Monocytes % 15.0 H Eosinophils % 0.6 Basophils % 0.3 Nucleated Red Blood Cells % 0.0 Neutrophils # 2.3 Lymphocytes # 4.2 H Monocytes # 1.2 H Eosinophils # 0.1 Basophils # 0.0 Nucleated Red Blood Cells # 0.0 Prothrombin Time 14.7 H Prothrombin Time Ratio 1.1 INR International Normalized Ratio 1.15 Activated Partial Thromboplast Time 42.1 H Sodium Level 140 Potassium Level 3.5 Chloride Level 106 Carbon Dioxide Level 22 Anion Gap 16 # Blood Urea Nitrogen 19 Creatinine 0.95 Glucose Level 124 Calcium Level 8.9 Magnesium Level 1.8 Total Bilirubin 0.6 Direct Bilirubin 0.00 Indirect Bilirubin 0.6 Aspartate Amino Transf (AST/SGOT) 26 Alanine Aminotransferase (ALT/SGPT) 30 Alkaline Phosphatase 71 Total Protein 6.3 Albumin 3.7 Globulin 2.60 Albumin/Globulin Ratio 1.42 Medications Medications Current Medications Enoxaparin Sodium (Lovenox) 70 mg Q12 SC Last administered on 01/30/17 21:33; Admin Dose 70 MG; Start 01/11/17 at 12:30; Status Future hold Mupirocin (Bactroban) 1 applic BID TOP Last administered on 01/31/17 08:42; Admin Dose 1 APPLIC; Start 01/12/17 at 13:00 Miscellaneous Information 1 ea NOTE XX ; Start 01/13/17 at 07:00 Glucose (Glutose) 15 gm Q15M PRN PO DECREASED GLUCOSE; Start 01/13/17 at 07:00 Glucose (Glutose) 22.5 gm Q15M PRN PO DECREASED GLUCOSE; Start 01/13/17 at 07: 00 Dextrose (D50w Syringe) 25 ml Q15M PRN IV DECREASED GLUCOSE; Start 01/13/17 at 07:00 Dextrose (D50w Syringe) 50 ml Q15M PRN IV DECREASED GLUCOSE; Start 01/13/17 at 07:00 Glucagon (Glucagen) 1 mg Q15M PRN IM DECREASED GLUCOSE; Start 01/13/17 at 07:00 Glucose (Glutose) 15 gm Q15M PRN BUCCAL DECREASED GLUCOSE; Start 01/13/17 at 07 :00 Carvedilol (Coreg) 3.125 mg BID NGT Last administered on 01/28/17 09:54; Admin Dose 3.125 MG; Start 01/13/17 at 09:00 Nystatin (Nystatin Powder) 1 applic BID TOP Last administered on 01/31/17 08: 42; Admin Dose 1 APPLIC; Start 01/14/17 at 15:00 Potassium Chloride (Potassium Chloride Pwd/Soln) 20 meq DAILY GTB Last administered on 01/28/17 08:22; Admin Dose 20 MEQ; Start 01/21/17 at 09:00 Docusate Sodium (Colace Liquid Cup) 100 mg BID GTB Last administered on 08:22; Admin Dose 100 MG; Start 01/23/17 at 10:00 Metoclopramide HCl (Reglan) 5 mg Q6H PRN IV VOMITTING Last administered on 01/24 23:51; Admin Dose 5 MG; Start 01/24/17 at 07:00 Sodium Biphosphate/ Sodium Phosphate (Fleet Enema) 133 ml DAILY PRN [place] CONSTIPATION; Start 01/24/17 at 12:30 Collagenase (Santyl) 1 applic DAILY TOP Last administered on 01/31/17 08:43; Admin Dose 1 APPLIC; Start 01/27/17 at 09:00 Insulin Aspart NOVOLOG *MILD* ALGORI... Q8 SC Last administered on 01/30/17 06 :02; Admin Dose 1 UNIT; Start 01/27/17 at 22:00 Dextrose/Sodium Chloride (D5-1/2ns) 1,000 ml @ 50 mls/hr Q20H IV Last administered on 01/31/17 03:53; Admin Dose 50 MLS/HR; Start 01/28/17 at 17:00 Lisinopril (Zestril) 5 mg DAILY NGT ; Start 01/29/17 at 09:00 Morphine Sulfate (morphine) 2 mg Q2H PRN IV pain Last administered on 08:40; Admin Dose 2 MG; Start 01/29/17 at 21:30 Lorazepam 0.5 mg 0.5 mg Q6H PRN IV anxiety Last administered on 01/31/17 07:33 ; Admin Dose 0.5 MG; Start 01/29/17 at 21:30 Fentanyl 100 ml @ 2.5 mls/hr TITRATE IV Last administered on 01/29/17 23:22; Admin Dose 2.5 MLS/HR; Start 01/29/17 at 23:00 Midazolam HCl 50 ml @ 1 mls/hr TITRATE IV Last administered on 01/29/17 23:23 ; Admin Dose 1 MLS/HR; Start 01/29/17 at 23:00 Magnesium Sulfate 50 ml @ 25 mls/hr ONCE ONCE IVPB Last administered on 10:17; Admin Dose 25 MLS/HR; Start 01/31/17 at 10:00; Stop 01/31/17 at 11: 59 Potassium Chloride (KCl 20 MEQ/50 ML SW) 50 ml @ 25 mls/hr ONCE ONCE IVPB Last administered on 01/31/17 10:18; Admin Dose 25 MLS/HR; Start 01/31/17 at 10 :00; Stop 01/31/17 at 11:59 Lorazepam (Ativan) 2 mg Q2 PRN IV ANXIETY Last administered on 01/31/17 10:17 ; Admin Dose 2 MG; Start 01/31/17 at 10:00 RADHA CAMACHO Jan 31, 2017 11:20
--- NOTE | 2017-01-31 12:14 | CONS ---
Date/Time of Note Date/Time of Note DATE: 01/31/17 TIME: 12:10 Consult Date/Type/Reason Admit Date/Time Jan 10, 2017 at 23:15 Initial Consult Date 01/10/17 Type of Consultation: ID Ordering Provider: AUBREE PALMA DO Objective Vital Signs Date Time Temp Pulse Resp B/P Pulse Ox O2 Delivery O2 Flow Rate FiO2 01/31/17 08:00 100 34 126/71 100 Mechanical Ventilator 01/31/17 08:00 30 01/31/17 07:30 97.9 Intake and Output 01/30/17 01/30/17 01/31/17 15:00 23:00 07:00 Intake Total 457.5 ml 400 ml 400 ml Output Total 169 ml 214 ml 390 ml Balance 288.5 ml 186 ml 10 ml Results/Medications Result Diagram: 01/31/17 0752 01/31/17 0752 Results 24 hrs Laboratory Tests Test 01/30/17 14:55 01/30/17 21:31 01/31/17 05:13 01/31/17 07:52 Bedside Glucose 139 123 131 White Blood Count 7.9 Red Blood Count 3.39 L Hemoglobin 9.7 L Hematocrit 30.6 L Mean Corpuscular Volume 90.3 Mean Corpuscular Hemoglobin 28.6 L Mean Corpuscular Hemoglobin Concent 31.7 L Red Cell Distribution Width 15.7 H Platelet Count 178 Mean Platelet Volume 11.2 H Neutrophils % 29.5 L Lymphocytes % 52.6 H Monocytes % 15.0 H Eosinophils % 0.6 Basophils % 0.3 Nucleated Red Blood Cells % 0.0 Neutrophils # 2.3 Lymphocytes # 4.2 H Monocytes # 1.2 H Eosinophils # 0.1 Basophils # 0.0 Nucleated Red Blood Cells # 0.0 Prothrombin Time 14.7 H Prothrombin Time Ratio 1.1 INR International Normalized Ratio 1.15 Activated Partial Thromboplast Time 42.1 H Sodium Level 140 Potassium Level 3.5 Chloride Level 106 Carbon Dioxide Level 22 Anion Gap 16 # Blood Urea Nitrogen 19 Creatinine 0.95 Glucose Level 124 Calcium Level 8.9 Magnesium Level 1.8 Total Bilirubin 0.6 Direct Bilirubin 0.00 Indirect Bilirubin 0.6 Aspartate Amino Transf (AST/SGOT) 26 Alanine Aminotransferase (ALT/SGPT) 30 Alkaline Phosphatase 71 Total Protein 6.3 Albumin 3.7 Globulin 2.60 Albumin/Globulin Ratio 1.42 Medications Current Medications Enoxaparin Sodium (Lovenox) 70 mg Q12 SC Last administered on 01/30/17 21:33; Admin Dose 70 MG; Start 01/11/17 at 12:30; Status Future hold Mupirocin (Bactroban) 1 applic BID TOP Last administered on 01/31/17 08:42; Admin Dose 1 APPLIC; Start 01/12/17 at 13:00 Miscellaneous Information 1 ea NOTE XX ; Start 01/13/17 at 07:00 Glucose (Glutose) 15 gm Q15M PRN PO DECREASED GLUCOSE; Start 01/13/17 at 07:00 Glucose (Glutose) 22.5 gm Q15M PRN PO DECREASED GLUCOSE; Start 01/13/17 at 07: 00 Dextrose (D50w Syringe) 25 ml Q15M PRN IV DECREASED GLUCOSE; Start 01/13/17 at 07:00 Dextrose (D50w Syringe) 50 ml Q15M PRN IV DECREASED GLUCOSE; Start 01/13/17 at 07:00 Glucagon (Glucagen) 1 mg Q15M PRN IM DECREASED GLUCOSE; Start 01/13/17 at 07:00 Glucose (Glutose) 15 gm Q15M PRN BUCCAL DECREASED GLUCOSE; Start 01/13/17 at 07 :00 Carvedilol (Coreg) 3.125 mg BID NGT Last administered on 01/28/17 09:54; Admin Dose 3.125 MG; Start 01/13/17 at 09:00 Nystatin (Nystatin Powder) 1 applic BID TOP Last administered on 01/31/17 08: 42; Admin Dose 1 APPLIC; Start 01/14/17 at 15:00 Potassium Chloride (Potassium Chloride Pwd/Soln) 20 meq DAILY GTB Last administered on 01/28/17 08:22; Admin Dose 20 MEQ; Start 01/21/17 at 09:00 Docusate Sodium (Colace Liquid Cup) 100 mg BID GTB Last administered on 08:22; Admin Dose 100 MG; Start 01/23/17 at 10:00 Metoclopramide HCl (Reglan) 5 mg Q6H PRN IV VOMITTING Last administered on 01/24 23:51; Admin Dose 5 MG; Start 01/24/17 at 07:00 Sodium Biphosphate/ Sodium Phosphate (Fleet Enema) 133 ml DAILY PRN [place] CONSTIPATION; Start 01/24/17 at 12:30 Collagenase 1 applic 1 applic DAILY TOP Last administered on 01/31/17 08:43; Admin Dose 1 APPLIC; Start 01/27/17 at 09:00 Dextrose/Sodium Chloride (D5-1/2ns) 1,000 ml @ 50 mls/hr Q20H IV Last administered on 01/31/17 03:53; Admin Dose 50 MLS/HR; Start 01/28/17 at 17:00 Lisinopril (Zestril) 5 mg DAILY NGT ; Start 01/29/17 at 09:00 Morphine Sulfate (morphine) 2 mg Q2H PRN IV pain Last administered on 08:40; Admin Dose 2 MG; Start 01/29/17 at 21:30 Lorazepam 0.5 mg 0.5 mg Q6H PRN IV anxiety Last administered on 01/31/17 07:33 ; Admin Dose 0.5 MG; Start 01/29/17 at 21:30 Fentanyl 100 ml @ 2.5 mls/hr TITRATE IV Last administered on 01/29/17 23:22; Admin Dose 2.5 MLS/HR; Start 01/29/17 at 23:00 Midazolam HCl (Versed) 50 ml @ 1 mls/hr TITRATE IV Last administered on 23:23; Admin Dose 1 MLS/HR; Start 01/29/17 at 23:00 Lorazepam (Ativan) 2 mg Q2 PRN IV ANXIETY Last administered on 01/31/17 10:17 ; Admin Dose 2 MG; Start 01/31/17 at 10:00 Insulin Aspart (Novolog Insulin Pen) NOVOLOG *MILD* ALGORI... Q4 SC ; Start 01/31/17 at 13:00 Assessment/Plan Chief Complaint/Hosp Course SUBJECTIVE DATA: No acute changes. Awake, looks comfortable. INDWELLINGS: Trach, left IJ triple lumen catheter. Right-sided PleurX catheter, Sifuentes catheter. PHYSICAL EXAMINATION: GENERAL: This is a well-developed, well-nourished, and elderly woman who is intubated, sedated and in no distress. HEENT: Head atraumatic, normocephalic. Sclerae anicteric. Buccal mucosa dry. NECK: Supple. CHEST: Rise symmetrical. Breath sounds diminished at the bases. HEART: S1, S2. ABDOMEN: Soft, bowel sounds present. EXTREMITIES: Without cyanosis. ASSESSMENT: 1. Status post septic shock 2. Status post-congestive heart failure exacerbation. 3. Acute respiratory failure, failed weaning trials. 4. Status post-pneumonia. 5. Chronic lymphocytic leukemia. 5. History of right PleurX catheter placement secondary to recurrent pleural effusions. 6. Diabetes. 7. Methicillin-resistant Staphylococcus aureus nares colonization. 8. History of deep vein thrombosis. PLAN: The patient remains stable. Off antibiotics. Pending PEG. Continue present care. Pending tx to [facility] staff Problems: MARIAM LINTON NP Jan 31, 2017 12:14
--- NOTE | 2017-01-31 14:28 | PN ---
Date/Time of Note Date/Time of Note DATE: 01/31/17 TIME: 14:28 Assessment/Plan VTE Prophylaxis VTE Prophylaxis Intervention: other Lines/Catheters IV Catheter Type ([facility] Central Line Central line still needed: Yes Urinary Cath still in place: Yes Reason Cath still needed: urinary retention Assessment/Plan Chief Complaint/Hosp Course SUBJECTIVE: all noted. The patient is s/p tracheostomy placement. No other events noted. vent settings were reviewed d/w ICU nurse no nausea, vomiting, rash, hematuria, melena, fever or chills OBJECTIVE: HEENT: Head is normocephalic. NECK: Supple. HEART: Regular rate. LUNGS: Show diminished breath sounds at the base. ABDOMEN: Soft, nontender to palpation without rebound or guarding. EXTREMITIES: Negative for clubbing, cyanosis, no edema. DERMATOLOGIC: No rashes. MUSCULOSKELETAL: No joint effusions. NEUROLOGIC: No change in exam. MEDICATIONS: The patient's medications have been reviewed. ASSESSMENT AND PLAN: 1. Nontender dependent respiratory failure. The patient has failed multiple weaning attempts, s/p trach placement. 2. Sepsis, status post shock. The patient is completing antibiotic course. 3. Decompensated heart failure. The patient appears euvolemic. Will continue to hold diuretic therapy. 4. Nonoliguric acute kidney injury with unknown baseline creatinine. Etiology is secondary to sepsis. Renal function has stabilized. Continue to monitor. 5. Mineral bone disorder. Continue to monitor calcium and phosphorus levels. 6. Dysphagia. The patient is pending PEG tube placement. Will replete K 7. Diabetes, continue Accu-Cheks and sliding scale. 8. Coronary artery disease. Continue medical management. 9. Pulmonary hypertension. Continue current treatment plan. 10. Bilateral pleural effusion. 11. Lower extremity deep venous thrombosis. Continue anticoagulation. 12. Encephalopathy. Etiology is possibly metabolic. Continue to monitor. 13. Gastrointestinal and deep venous thrombosis prophylaxis. DISPOSITION: We will place a Chaudhry evaluation. Problems: Exam/Review of Systems Vital Signs Vitals Vital Signs Date Time Temp Pulse Resp B/P Pulse Ox O2 Delivery O2 Flow Rate FiO2 01/31/17 12:30 105 30 120/74 100 Mechanical Ventilator 01/31/17 12:00 97.7 01/31/17 08:00 30 Intake and Output 01/30/17 01/30/17 01/31/17 15:00 23:00 07:00 Intake Total 457.5 ml 400 ml 400 ml Output Total 169 ml 214 ml 390 ml Balance 288.5 ml 186 ml 10 ml Results Result Diagram: 01/31/17 0752 01/31/17 0752 Results 24 hrs Laboratory Tests Test 01/30/17 14:55 01/30/17 21:31 01/31/17 05:13 01/31/17 07:52 Bedside Glucose 139 123 131 White Blood Count 7.9 Red Blood Count 3.39 L Hemoglobin 9.7 L Hematocrit 30.6 L Mean Corpuscular Volume 90.3 Mean Corpuscular Hemoglobin 28.6 L Mean Corpuscular Hemoglobin Concent 31.7 L Red Cell Distribution Width 15.7 H Platelet Count 178 Mean Platelet Volume 11.2 H Neutrophils % 29.5 L Lymphocytes % 52.6 H Monocytes % 15.0 H Eosinophils % 0.6 Basophils % 0.3 Nucleated Red Blood Cells % 0.0 Neutrophils # 2.3 Lymphocytes # 4.2 H Monocytes # 1.2 H Eosinophils # 0.1 Basophils # 0.0 Nucleated Red Blood Cells # 0.0 Prothrombin Time 14.7 H Prothrombin Time Ratio 1.1 INR International Normalized Ratio 1.15 Activated Partial Thromboplast Time 42.1 H Sodium Level 140 Potassium Level 3.5 Chloride Level 106 Carbon Dioxide Level 22 Anion Gap 16 # Blood Urea Nitrogen 19 Creatinine 0.95 Glucose Level 124 Calcium Level 8.9 Magnesium Level 1.8 Total Bilirubin 0.6 Direct Bilirubin 0.00 Indirect Bilirubin 0.6 Aspartate Amino Transf (AST/SGOT) 26 Alanine Aminotransferase (ALT/SGPT) 30 Alkaline Phosphatase 71 Total Protein 6.3 Albumin 3.7 Globulin 2.60 Albumin/Globulin Ratio 1.42 Test 01/31/17 12:33 Bedside Glucose 122 Medications Medications Current Medications Enoxaparin Sodium (Lovenox) 70 mg Q12 SC Last administered on 01/30/17 21:33; Admin Dose 70 MG; Start 01/11/17 at 12:30; Status Future hold Mupirocin (Bactroban) 1 applic BID TOP Last administered on 01/31/17 08:42; Admin Dose 1 APPLIC; Start 01/12/17 at 13:00 Miscellaneous Information 1 ea NOTE XX ; Start 01/13/17 at 07:00 Glucose (Glutose) 15 gm Q15M PRN PO DECREASED GLUCOSE; Start 01/13/17 at 07:00 Glucose (Glutose) 22.5 gm Q15M PRN PO DECREASED GLUCOSE; Start 01/13/17 at 07: 00 Dextrose (D50w Syringe) 25 ml Q15M PRN IV DECREASED GLUCOSE; Start 01/13/17 at 07:00 Dextrose (D50w Syringe) 50 ml Q15M PRN IV DECREASED GLUCOSE; Start 01/13/17 at 07:00 Glucagon (Glucagen) 1 mg Q15M PRN IM DECREASED GLUCOSE; Start 01/13/17 at 07:00 Glucose (Glutose) 15 gm Q15M PRN BUCCAL DECREASED GLUCOSE; Start 01/13/17 at 07 :00 Carvedilol (Coreg) 3.125 mg BID NGT Last administered on 01/28/17 09:54; Admin Dose 3.125 MG; Start 01/13/17 at 09:00 Nystatin (Nystatin Powder) 1 applic BID TOP Last administered on 01/31/17 08: 42; Admin Dose 1 APPLIC; Start 01/14/17 at 15:00 Potassium Chloride (Potassium Chloride Pwd/Soln) 20 meq DAILY GTB Last administered on 01/28/17 08:22; Admin Dose 20 MEQ; Start 01/21/17 at 09:00 Docusate Sodium (Colace Liquid Cup) 100 mg BID GTB Last administered on 08:22; Admin Dose 100 MG; Start 01/23/17 at 10:00 Metoclopramide HCl (Reglan) 5 mg Q6H PRN IV VOMITTING Last administered on 01/24 23:51; Admin Dose 5 MG; Start 01/24/17 at 07:00 Sodium Biphosphate/ Sodium Phosphate (Fleet Enema) 133 ml DAILY PRN [place] CONSTIPATION; Start 01/24/17 at 12:30 Collagenase 1 applic 1 applic DAILY TOP Last administered on 01/31/17 08:43; Admin Dose 1 APPLIC; Start 01/27/17 at 09:00 Dextrose/Sodium Chloride (D5-1/2ns) 1,000 ml @ 50 mls/hr Q20H IV Last administered on 01/31/17 03:53; Admin Dose 50 MLS/HR; Start 01/28/17 at 17:00 Lisinopril (Zestril) 5 mg DAILY NGT ; Start 01/29/17 at 09:00 Morphine Sulfate (morphine) 2 mg Q2H PRN IV pain Last administered on 08:40; Admin Dose 2 MG; Start 01/29/17 at 21:30 Lorazepam 0.5 mg 0.5 mg Q6H PRN IV anxiety Last administered on 01/31/17 07:33 ; Admin Dose 0.5 MG; Start 01/29/17 at 21:30 Fentanyl 100 ml @ 2.5 mls/hr TITRATE IV Last administered on 01/29/17 23:22; Admin Dose 2.5 MLS/HR; Start 01/29/17 at 23:00 Midazolam HCl (Versed) 50 ml @ 1 mls/hr TITRATE IV Last administered on 23:23; Admin Dose 1 MLS/HR; Start 01/29/17 at 23:00 Lorazepam (Ativan) 2 mg Q2 PRN IV ANXIETY Last administered on 01/31/17 12:44 ; Admin Dose 2 MG; Start 01/31/17 at 10:00 Insulin Aspart (Novolog Insulin Pen) NOVOLOG *MILD* ALGORI... Q4 SC ; Start 01/31/17 at 13:00 KENTRELL ORTEGA DO Jan 31, 2017 14:28
--- NOTE | 2017-01-31 14:33 | PN ---
Date/Time of Note Date/Time of Note DATE: 01/31/17 TIME: 14:32 Assessment/Plan VTE Prophylaxis VTE Prophylaxis Intervention: other Lines/Catheters IV Catheter Type (from Nrs): Central line still needed: No Urinary Cath still in place: No Assessment/Plan Chief Complaint/Hosp Course IMPRESSION: Respiratory failure. SP Tracheostomy no bleeding will continue wound care vent support Problems: Subjective 24 Hr Interval Summary Gastrointestinal: no complaints Genitourinary: no complaints Musculoskeletal: no complaints Skin: no complaints Exam/Review of Systems Vital Signs Vitals Vital Signs Date Time Temp Pulse Resp B/P Pulse Ox O2 Delivery O2 Flow Rate FiO2 01/31/17 12:30 105 30 120/74 100 Mechanical Ventilator 01/31/17 12:00 97.7 01/31/17 08:00 30 Intake and Output 01/30/17 01/30/17 01/31/17 15:00 23:00 07:00 Intake Total 457.5 ml 400 ml 400 ml Output Total 169 ml 214 ml 390 ml Balance 288.5 ml 186 ml 10 ml Exam ENMT: nl external ears & nose, nl lips & teeth, nl nasal mucosa & septum Neck: non-tender, supple Respiratory: clear to auscultation, normal air movement Cardiovascular: nl pulses, regular rate and rhythm Results Result Diagram: 01/31/17 0752 01/31/17 0752 Results 24 hrs Laboratory Tests Test 01/30/17 14:55 01/30/17 21:31 01/31/17 05:13 01/31/17 07:52 Bedside Glucose 139 123 131 White Blood Count 7.9 Red Blood Count 3.39 L Hemoglobin 9.7 L Hematocrit 30.6 L Mean Corpuscular Volume 90.3 Mean Corpuscular Hemoglobin 28.6 L Mean Corpuscular Hemoglobin Concent 31.7 L Red Cell Distribution Width 15.7 H Platelet Count 178 Mean Platelet Volume 11.2 H Neutrophils % 29.5 L Lymphocytes % 52.6 H Monocytes % 15.0 H Eosinophils % 0.6 Basophils % 0.3 Nucleated Red Blood Cells % 0.0 Neutrophils # 2.3 Lymphocytes # 4.2 H Monocytes # 1.2 H Eosinophils # 0.1 Basophils # 0.0 Nucleated Red Blood Cells # 0.0 Prothrombin Time 14.7 H Prothrombin Time Ratio 1.1 INR International Normalized Ratio 1.15 Activated Partial Thromboplast Time 42.1 H Sodium Level 140 Potassium Level 3.5 Chloride Level 106 Carbon Dioxide Level 22 Anion Gap 16 # Blood Urea Nitrogen 19 Creatinine 0.95 Glucose Level 124 Calcium Level 8.9 Magnesium Level 1.8 Total Bilirubin 0.6 Direct Bilirubin 0.00 Indirect Bilirubin 0.6 Aspartate Amino Transf (AST/SGOT) 26 Alanine Aminotransferase (ALT/SGPT) 30 Alkaline Phosphatase 71 Total Protein 6.3 Albumin 3.7 Globulin 2.60 Albumin/Globulin Ratio 1.42 Test 01/31/17 12:33 Bedside Glucose 122 Medications Medications Current Medications Enoxaparin Sodium (Lovenox) 70 mg Q12 SC Last administered on 01/30/17 21:33; Admin Dose 70 MG; Start 01/11/17 at 12:30; Status Future hold Mupirocin (Bactroban) 1 applic BID TOP Last administered on 01/31/17 08:42; Admin Dose 1 APPLIC; Start 01/12/17 at 13:00 Miscellaneous Information 1 ea NOTE XX ; Start 01/13/17 at 07:00 Glucose (Glutose) 15 gm Q15M PRN PO DECREASED GLUCOSE; Start 01/13/17 at 07:00 Glucose (Glutose) 22.5 gm Q15M PRN PO DECREASED GLUCOSE; Start 01/13/17 at 07: 00 Dextrose (D50w Syringe) 25 ml Q15M PRN IV DECREASED GLUCOSE; Start 01/13/17 at 07:00 Dextrose (D50w Syringe) 50 ml Q15M PRN IV DECREASED GLUCOSE; Start 01/13/17 at 07:00 Glucagon (Glucagen) 1 mg Q15M PRN IM DECREASED GLUCOSE; Start 01/13/17 at 07:00 Glucose (Glutose) 15 gm Q15M PRN BUCCAL DECREASED GLUCOSE; Start 01/13/17 at 07 :00 Carvedilol (Coreg) 3.125 mg BID NGT Last administered on 01/28/17 09:54; Admin Dose 3.125 MG; Start 01/13/17 at 09:00 Nystatin (Nystatin Powder) 1 applic BID TOP Last administered on 01/31/17 08: 42; Admin Dose 1 APPLIC; Start 01/14/17 at 15:00 Potassium Chloride (Potassium Chloride Pwd/Soln) 20 meq DAILY GTB Last administered on 01/28/17 08:22; Admin Dose 20 MEQ; Start 01/21/17 at 09:00 Docusate Sodium (Colace Liquid Cup) 100 mg BID GTB Last administered on 08:22; Admin Dose 100 MG; Start 01/23/17 at 10:00 Metoclopramide HCl (Reglan) 5 mg Q6H PRN IV VOMITTING Last administered on 01/24 23:51; Admin Dose 5 MG; Start 01/24/17 at 07:00 Sodium Biphosphate/ Sodium Phosphate (Fleet Enema) 133 ml DAILY PRN [place] CONSTIPATION; Start 01/24/17 at 12:30 Collagenase 1 applic 1 applic DAILY TOP Last administered on 01/31/17 08:43; Admin Dose 1 APPLIC; Start 01/27/17 at 09:00 Dextrose/Sodium Chloride (D5-1/2ns) 1,000 ml @ 50 mls/hr Q20H IV Last administered on 01/31/17 03:53; Admin Dose 50 MLS/HR; Start 01/28/17 at 17:00 Lisinopril (Zestril) 5 mg DAILY NGT ; Start 01/29/17 at 09:00 Morphine Sulfate (morphine) 2 mg Q2H PRN IV pain Last administered on 08:40; Admin Dose 2 MG; Start 01/29/17 at 21:30 Lorazepam 0.5 mg 0.5 mg Q6H PRN IV anxiety Last administered on 01/31/17 07:33 ; Admin Dose 0.5 MG; Start 01/29/17 at 21:30 Fentanyl 100 ml @ 2.5 mls/hr TITRATE IV Last administered on 01/29/17 23:22; Admin Dose 2.5 MLS/HR; Start 01/29/17 at 23:00 Midazolam HCl (Versed) 50 ml @ 1 mls/hr TITRATE IV Last administered on 23:23; Admin Dose 1 MLS/HR; Start 01/29/17 at 23:00 Lorazepam (Ativan) 2 mg Q2 PRN IV ANXIETY Last administered on 01/31/17 12:44 ; Admin Dose 2 MG; Start 01/31/17 at 10:00 Insulin Aspart (Novolog Insulin Pen) NOVOLOG *MILD* ALGORI... Q4 SC ; Start 01/31/17 at 13:00 DAVID KELLER MD Jan 31, 2017 14:33
[2017-01-31] MEDS ORDERED: CEFAZOLIN 1 GM/50 ML (PMX) 50 ML IVPB ONE (14:58)
--- NOTE | 2017-01-31 15:22 | OPPN ---
Date/Time of Note Date/Time of Note DATE: 01/31/17 TIME: 15:20 Proc Note GI Procedure Date 01/31/17 Pre-procedure Diagnosis Dysphagia Post-procedure Diagnosis Dysphagia Procedure Performed: Other (PEG) Surgeon see signature line Steam Blocker none Anesthesia Type: general, MAC Tourniquet Time none EBL none Transfusion required none Biopsy 1: None Grafts/Implants none Tubes/Drains none Complication(s) none Pt Condition post procedure: stable Disposition: other (Patient is in intensive care unit and the procedure was done bedside) Operative\Procedure Findings PEG Procedure Description See dictated report GAVIOTA ALLEN MD Jan 31, 2017 15:22
[2017-01-31] MEDS ORDERED: PROPOFOL 20 ML ONE (17:02)
--- NOTE | 2017-01-31 17:13 | CONS ---
Date/Time of Note Date/Time of Note DATE: 01/31/17 TIME: 17:11 Consult Date/Type/Reason Admit Date/Time Jan 10, 2017 at 23:15 Initial Consult Date 01/11/17 Type of Consultation: CARDIOGLOY Reason for Consultation CARDIOLOGY follow up note S: D/W staff and rhythm was reviewed. pt remains in afib. HR has been under good control for the most part. she is still on vent in ICU. pt is nonverbal. S/P Trach 01/28/17. S/P PEG 01/31/17 her old records were extensively reviewed pt's EF was normal at 50-55% on 01/01/17 O: gen: s/p trach on vent HEENT: Pupils are equal NECK: no stridor. s/p trach CV: irregularly irregular. systolic murmur pulm: + mild rhonchi. diffuse. Chest: s/p plurodex right side GI: soft NT ND. no rebound. no guarding ext: + trace LE edema neuro: awake and follows commands. Derm: multiple echymosis psych; anxious ECG reviewed: afib RVR. ant infarct. ECHO 01/11/17reviewed personally: 1. Normal left ventricular cavity size. Normal left ventricular wall thickness. Severe left ventricular systolic dysfunction. Ejection fraction is visually estimated at 25 %. Multiple segmental wall motion abnormalities. 2. There is mild enlargement of left atrium. 3. Mild mitral leaflet calcification. Mild mitral annular calcification. Mild mitral valve regurgitation. 4. Aortic sclerosis without stenosis. Trace aortic valve regurgitation. 5. Normal appearance of the tricuspid valve. Estimated peak PA systolic pressure 53 mmHg. There is mild tricuspid regurgitation. 6. Inferior vena cava without respiratory collapse, however, patient on ventilator. Ordering Provider: AUBREE PALMA DO Objective Vital Signs Date Time Temp Pulse Resp B/P Pulse Ox O2 Delivery O2 Flow Rate FiO2 01/31/17 16:30 86 16 86/58 100 Mechanical Ventilator 01/31/17 16:00 97.4 01/31/17 08:00 30 Intake and Output 01/30/17 01/30/17 01/31/17 15:00 23:00 07:00 Intake Total 457.5 ml 400 ml 400 ml Output Total 169 ml 214 ml 390 ml Balance 288.5 ml 186 ml 10 ml Results/Medications Result Diagram: 01/31/17 0752 01/31/17 0752 Results 24 hrs Laboratory Tests Test 01/30/17 21:31 01/31/17 05:13 01/31/17 07:52 01/31/17 12:33 Bedside Glucose 123 131 122 White Blood Count 7.9 Red Blood Count 3.39 L Hemoglobin 9.7 L Hematocrit 30.6 L Mean Corpuscular Volume 90.3 Mean Corpuscular Hemoglobin 28.6 L Mean Corpuscular Hemoglobin Concent 31.7 L Red Cell Distribution Width 15.7 H Platelet Count 178 Mean Platelet Volume 11.2 H Neutrophils % 29.5 L Lymphocytes % 52.6 H Monocytes % 15.0 H Eosinophils % 0.6 Basophils % 0.3 Nucleated Red Blood Cells % 0.0 Neutrophils # 2.3 Lymphocytes # 4.2 H Monocytes # 1.2 H Eosinophils # 0.1 Basophils # 0.0 Nucleated Red Blood Cells # 0.0 Prothrombin Time 14.7 H Prothrombin Time Ratio 1.1 INR International Normalized Ratio 1.15 Activated Partial Thromboplast Time 42.1 H Sodium Level 140 Potassium Level 3.5 Chloride Level 106 Carbon Dioxide Level 22 Anion Gap 16 # Blood Urea Nitrogen 19 Creatinine 0.95 Glucose Level 124 Calcium Level 8.9 Magnesium Level 1.8 Total Bilirubin 0.6 Direct Bilirubin 0.00 Indirect Bilirubin 0.6 Aspartate Amino Transf (AST/SGOT) 26 Alanine Aminotransferase (ALT/SGPT) 30 Alkaline Phosphatase 71 Total Protein 6.3 Albumin 3.7 Globulin 2.60 Albumin/Globulin Ratio 1.42 Medications Current Medications Enoxaparin Sodium (Lovenox) 70 mg Q12 SC Last administered on 01/30/17 21:33; Admin Dose 70 MG; Start 01/11/17 at 12:30; Status Future hold Mupirocin (Bactroban) 1 applic BID TOP Last administered on 01/31/17 08:42; Admin Dose 1 APPLIC; Start 01/12/17 at 13:00 Miscellaneous Information 1 ea NOTE XX ; Start 01/13/17 at 07:00 Glucose (Glutose) 15 gm Q15M PRN PO DECREASED GLUCOSE; Start 01/13/17 at 07:00 Glucose (Glutose) 22.5 gm Q15M PRN PO DECREASED GLUCOSE; Start 01/13/17 at 07: 00 Dextrose (D50w Syringe) 25 ml Q15M PRN IV DECREASED GLUCOSE; Start 01/13/17 at 07:00 Dextrose (D50w Syringe) 50 ml Q15M PRN IV DECREASED GLUCOSE; Start 01/13/17 at 07:00 Glucagon (Glucagen) 1 mg Q15M PRN IM DECREASED GLUCOSE; Start 01/13/17 at 07:00 Glucose (Glutose) 15 gm Q15M PRN BUCCAL DECREASED GLUCOSE; Start 01/13/17 at 07 :00 Carvedilol (Coreg) 3.125 mg BID NGT Last administered on 01/28/17 09:54; Admin Dose 3.125 MG; Start 01/13/17 at 09:00 Nystatin (Nystatin Powder) 1 applic BID TOP Last administered on 01/31/17 08: 42; Admin Dose 1 APPLIC; Start 01/14/17 at 15:00 Potassium Chloride (Potassium Chloride Pwd/Soln) 20 meq DAILY GTB Last administered on 01/28/17 08:22; Admin Dose 20 MEQ; Start 01/21/17 at 09:00 Docusate Sodium (Colace Liquid Cup) 100 mg BID GTB Last administered on 08:22; Admin Dose 100 MG; Start 01/23/17 at 10:00 Metoclopramide HCl (Reglan) 5 mg Q6H PRN IV VOMITTING Last administered on 01/24 23:51; Admin Dose 5 MG; Start 01/24/17 at 07:00 Sodium Biphosphate/ Sodium Phosphate (Fleet Enema) 133 ml DAILY PRN [place] CONSTIPATION; Start 01/24/17 at 12:30 Collagenase 1 applic 1 applic DAILY TOP Last administered on 01/31/17 08:43; Admin Dose 1 APPLIC; Start 01/27/17 at 09:00 Dextrose/Sodium Chloride (D5-1/2ns) 1,000 ml @ 50 mls/hr Q20H IV Last administered on 01/31/17 03:53; Admin Dose 50 MLS/HR; Start 01/28/17 at 17:00 Lisinopril (Zestril) 5 mg DAILY NGT ; Start 01/29/17 at 09:00 Morphine Sulfate (morphine) 2 mg Q2H PRN IV pain Last administered on 08:40; Admin Dose 2 MG; Start 01/29/17 at 21:30 Lorazepam 0.5 mg 0.5 mg Q6H PRN IV anxiety Last administered on 01/31/17 07:33 ; Admin Dose 0.5 MG; Start 01/29/17 at 21:30 Fentanyl 100 ml @ 2.5 mls/hr TITRATE IV Last administered on 01/29/17 23:22; Admin Dose 2.5 MLS/HR; Start 01/29/17 at 23:00 Midazolam HCl (Versed) 50 ml @ 1 mls/hr TITRATE IV Last administered on 23:23; Admin Dose 1 MLS/HR; Start 01/29/17 at 23:00 Lorazepam (Ativan) 2 mg Q2 PRN IV ANXIETY Last administered on 01/31/17 12:44 ; Admin Dose 2 MG; Start 01/31/17 at 10:00 Insulin Aspart (Novolog Insulin Pen) NOVOLOG *MILD* ALGORI... Q4 SC ; Start 01/31/17 at 13:00 Assessment/Plan Chief Complaint/Hosp Course 1. shock: cardiogenic and septic combination : BP has improved now and off pressors but on low side. 2. CHF: acute on chronic probably due to systolic and diastolic heart failure: currently stable and appears compensated. 3. acute hypoxemic/ hypercapnic resp failure: s/ p trach now 4. Afib with RVR: HR is under much better control now 5. HX CAD 6/ HX PCI RCA 2009 7. HX HTN: now hypotensive 8. Electrolytes abnormalities. 9. hx CLL 10. ANEMIA 11. Lactic acidosis: resolved now. 12. dyslipidemia 13./ hx DVT ( treated with XARELTO at home). on lovenox here. 14. severe cardiomyopathy now with EF 20% (. EF was 50-55% on 01/01/17 per review of old records) 15. Dysphagia s/p PEG REC: cont vent support for now. trach care. will give dig prn. currently HR is under fair control. ECHO shows severe LV dysfunction now. ischemic work up including noni angio d/ w pt 's son and daughter in law previously. they want medical therapy only at this time coreg as tolerated. s/p transfusion per hem/onc rec. stool OB is negative so far, pt is back on lovenox, may need to be held again prior to PEG. will change lovenox to eliquis will cont lisinopril as tolerated. replace lylisa allen thank you. CHINO MERCEDES MD [facility] Problems: CHINO MERCEDES MD Jan 31, 2017 17:13
--- NOTE | 2017-01-31 18:45 | GILP ---
DATE OF PROCEDURE: INDICATION: The patient is a 81-year-old female undergoing this procedure for dysphagia and for carlota gterm enteral nutrition. The risk of the procedure, related and unrelated complications, anesthetic risks, alternatives discussed and informed consent was obtained. DESCRIPTION OF PROCEDURE: The patient was brought back. Procedure was done bedside. The patient w as given NSAID prior to the procedure and was sedated by the anesthesiologist. After appropriate se dation, scope was passed with much ease into esophagus and advanced further down into stomach and du odenum. There was no evidence of obstruction. By transillumination and digital palpation technique , appropriate site was chosen on anterior abdominal wall, site was sterilized with chlorhexidine ajit ution, 2% Xylocaine instilled by safe method. A small incision was made. Through that incision, tr ocar stylus passed into the stomach. Stylet was removed through the hollow tip of the catheter. In sertion wire was passed and the entire procedure was completed by modified Ponsky technique. The pa tient was rescoped. The position of the internal bumper confirmed. External bumper secured. Parris ated the procedure very well. IMPRESSION: Successful placement of G-tube done. PLAN: Resume feeding through the G-tube after 6 hours. Abdominal binder all the time. Dictated By: GAVIOTA VALENCIA/GENOVEVA Conf#: [id number] DID#: [id number] CC: AUBREE PALMA DO;*EndCC*
[2017-02-01] MEDS ORDERED: APIXABAN 5 MG TABLET PO SCH (09:00)
== END 2017-01-31 19:15 | DRG 4 ==
LOC: E/R 15:06 → ICU 23:15
PROVIDERS: ADMIT Internal Medicine; ATTEND Internal Medicine
PROC: 02HV33Z Insertion of Infusion Device into Superior Vena Cava, Percutaneous Approach (ICD-10-PCS; principal; 2017-01-10)
PROC: 0BH17EZ Insertion of Endotracheal Airway into Trachea, Via Natural or Artificial Opening (ICD-10-PCS; 2017-01-10)
PROC: 5A1945Z Respiratory Ventilation, 24-96 Consecutive Hours (ICD-10-PCS; 2017-01-10)
PROC: 5A09357 Assistance with Respiratory Ventilation, Less than 24 Consecutive Hours, Continuous Positive Airway Pressure (ICD-10-PCS; 2017-01-10)
PROC: 5A1955Z Respiratory Ventilation, Greater than 96 Consecutive Hours (ICD-10-PCS; 2017-01-14)
PROC: 0BH18EZ Insertion of Endotracheal Airway into Trachea, Via Natural or Artificial Opening Endoscopic (ICD-10-PCS; 2017-01-14)
PROC: 30233N1 Transfusion of Nonautologous Red Blood Cells into Peripheral Vein, Percutaneous Approach (ICD-10-PCS; 2017-01-19)
PROC: 0B110F4 Bypass Trachea to Cutaneous with Tracheostomy Device, Open Approach (ICD-10-PCS; 2017-01-28)
PROC: 0DH63UZ Insertion of Feeding Device into Stomach, Percutaneous Approach (ICD-10-PCS; 2017-01-31)
DX: A41.9 Sepsis, unspecified organism (principal); N17.0 Acute kidney failure with tubular necrosis; J18.9 Pneumonia, unspecified organism; G92 Toxic encephalopathy; I50.43 Acute on chronic combined systolic (congestive) and diastolic (congestive) heart failure; R65.21 Severe sepsis with septic shock; R57.0 Cardiogenic shock; E87.0 Hyperosmolality and hypernatremia; I48.0 Paroxysmal atrial fibrillation; J96.02 Acute respiratory failure with hypercapnia; J96.01 Acute respiratory failure with hypoxia; I42.9 Cardiomyopathy, unspecified; B37.49 Other urogenital candidiasis; I82.512 Chronic embolism and thrombosis of left femoral vein; C91.90 Lymphoid leukemia, unspecified not having achieved remission; T85.618A Breakdown (mechanical) of other specified internal prosthetic devices, implants and grafts, initial encounter; I27.20 Pulmonary hypertension, unspecified; E87.5 Hyperkalemia; I25.10 Atherosclerotic heart disease of native coronary artery without angina pectoris; E78.5 Hyperlipidemia, unspecified; E11.9 Type 2 diabetes mellitus without complications; D64.9 Anemia, unspecified; Z22.322 Carrier or suspected carrier of Methicillin resistant Staphylococcus aureus; Z79.01 Long term (current) use of anticoagulants; Y83.8 Other surgical procedures as the cause of abnormal reaction of the patient, or of later complication, without mention of misadventure at the time of the procedure; Y92.89 Other specified places as the place of occurrence of the external cause; Z79.4 Long term (current) use of insulin
CPT/HCPCS: 31500; 36415; 36430; 36600; 71010; 76937; 80048; 80053; 80061; 80076; 80162; 80202; 81001; 81003; 82043; 82270; 82306; 82550; 82553; 82607; 82728; 82803; 82962; 83010; 83540; 83605; 83615; 83735; 83880; 84100; 84145; 84155; 84300; 84439; 84443; 84484; 84560; 85014; 85018; 85025; 85045; 85610; 85651; 85730; 86850; 86900; 86901; 86920; 87040; 87070; 87081; 87086; 93005; 93306; 93970; 94002; 94003; 94640; 94644; 94660; 94664; 94770; 96372; 96374; 96375; 96376; J1120; C1751; J0282; J0690; J1815; J1940; J2060; J2185; J2250; J2270; J2370; J2765; J3010; J3370; J3475; J3480; J7040; J7042; J7060; J7070; J7999; P9016; P9047